=== PATIENT | female | born 1945 | race Caucasian/White ===

== ENCOUNTER 2019-10-01 06:00 | Outpatient (RCR) | payer MEDICARE, SELFPAY | END 2019-10-31 00:01 | LOC: SPT 06:00 | PROVIDERS: Family Provider Internal Medicine; Visit Provider Licensed Practical Nurse | DX: M51.17 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 disc disorders 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, lumbosacral region (principal) | CPT/HCPCS: 97110 ==

== ENCOUNTER 2019-11-23 01:33 | Emergency (ER) | payer MEDICARE, SELFPAY ==
[2019-11-23] VITALS (9 sets, daily range): BP systolic 120–190; BP diastolic 57–80; PULSE 65–80; RESP 17–22; O2SAT 95–99; BMI 29.9
--- NOTE | 2019-11-23 01:52 | XR_ITS ---
WS: [id number] PORTABLE CHEST HISTORY: chest pain COMPARISON: 01/08/2016 Lungs are clear and well expanded. No pleural effusion or pneumothorax. Cardiac size: Mildly enlarged cardiac silhouette. Mediastinum/Aorta: Mild atherosclerosis aorta. No osseous abnormality seen. XR/XR chest 1V portable [id number] IMPRESSION: Mild atherosclerosis aorta and cardiomegaly. No acute cardiopulmonary disease.
--- NOTE | 2019-11-23 01:53 | ECG_ITS ---
Measurements Intervals [place] Rate: 70 P: 40 MT: 202 QRS: -8 QRSD: 69 T: 12 QT: 349 QTc: 378 SINUS RHYTHM WITH FREQUENT VENTRICULAR PREMATURE COMPLEXES LOW QRS VOLTAGE IN PRECORDIAL LEADS [QRS DEFLECTION < 1.0 mV IN CHEST LEADS] MINIMAL VOLTAGE CRITERIA FOR LVH, CONSIDER NORMAL VARIANT [MEETS CRITERIA IN ONE OF: R(aVL), S(V1), R(V5), R(V5/V6)+S(V1)] SEPTAL MYOCARDIAL INFARCTION [40+ ms Q WAVE IN V1/V2], PROBABLY OLD Compared to ECG 02/07/2019 16:30:08 Myocardial infarct finding now present Electronically Signed On 11-23-2019 15:26:09 COMMUNICATION SKILLS INSTRUCTOR by Fly Reid M.D. [id number] elida
--- NOTE | 2019-11-23 01:54 | ED_ITS ---
Entered by Tamar Valenzuela, acting as scribe for Maribel Odom HPI - Chest Pain General: Chief Complaint: Chest Pain Stated Complaint: CP Time Seen by Provider: 11/23/19 01:52 Source: patient and family Mode of arrival: ambulatory History of Present Illness: HPI narrative: 73 y/o female presents to the ED with complaint of chest pain. Pt states she has had intermittent pain for several days. Pt states she tried antacids tonight, but had no relief. Her pain is sharp in nature and comes and goes ( lasting an hr or so). Pt states she has chronic bronchitis and a pinched nerve in her back that causes her regular pain. MD complaint: chest pain Onset (ago): day(s) Timing of current episode: episodic Prior episodes: Yes Onset: during rest Quality: sharp Associated symptoms: Deny abdominal pain, diaphoresis, fever(s), nausea or vomiting Review of Systems Const: Denies: fever, chills, body aches, fatigue, malaise or diaphoresis Eyes: Denies: change in vision or blurry vision ENMT: Denies: throat pain, painful swallowing, hoarseness, ear pain, ear discharge, Change in hearing or nasal discharge Card: Reports: other (see HPI) Resp: Reports: other (see HPI) GI: Denies: abdominal pain, nausea, vomiting, vomiting blood, coffee grounds in vomit, diarrhea, constipation, cramping, blood in stool or black tarry stool : Denies: flank pain, painful urination, urinary frequency, urinary urgency, decreased urine ouput, urinary incontinence or blood in urine Musc: Denies: neck pain, back pain, extremity pain, extremity swelling, joint pain, joint swelling, joint warmth or joint stiffness Skin/Breast: Denies: rash, skin tenderness or yellow skin Neuro: Denies: headache, numbness in extremities, weakness in extremities, changes in sensation, lack of coordination, difficulty walking, dizziness, vertigo or confusion Endo: Denies: excessive thirst, tired all the time, cold intolerance, excessive sweating, flushing or hot flashes Hector/Lymph: Denies: easy bruising, easy bleeding, petechiae or enlarged lymph nodes All/Imm: Denies: hives, throat swelling, tongue swelling, facial swelling or acute wheezing PFSH ED PFSH: Statuses (acute, chronic, etc) shown below reflect problem list status as previously entered and may not be historically accurate Medical History (Updated 11/23/19 @ 05:44 by Maribel Odom) Back pain (Acute) Chronic bronchitis (Acute) Physical Exam Const: COMMON NORMALS: no apparent distress, oriented x3, no limitations, healthy appearing and well nourished EXAM LIMITATIONS: no altered mental sta tus GENERAL APPEARANCE: cooperative, well kempt and well developed ORIENTATION/CONSCIOUSNESS: Yes awake HENMT: COMMON NORMALS: normocephalic, head/scalp atraumatic, hearing grossly normal bilaterally, external ears normal, EAC's normal, external nose normal and moist oral mucous membranes HEAD & SCALP: normal to inspection, normocephalic and atraumatic FACE & SINUS: normal facial exam and face symmetric NOSE: external nose normal and nares normal EXTERNAL EAR: Yes external ears normal EXTERNAL AUDITORY CANAL: EAC's normal MOUTH: oral and palatal mucosa normal and tongue normal Eye: COMMON NORMALS: PERRL, EOMs intact bilaterally, conjunctivae normal and no scleral icterus GENERAL EYE: normal appearance of both eyes and normal light reflex CONJUNCTIVA: Yes conjunctivae normal SCLERA: sclerae normal CORNEA: Yes corneas normal PUPIL: Yes PERRL DIRECT OPHTHALMOSCOPY: Yes normal light reflex Neck/C-Spine: COMMON NORMALS: full ROM, no lymphadenopathy, supple, no meningeal signs and no JVD GENERAL: Yes normal visual inspection and Yes trachea midline CERVICAL SPINE: Yes cervical ROM normal Cardio: COMMON NORMALS: no JVD, regular rate, regular rhythm, S1 normal heart sound, S2 normal heart sound, no gallops, no clicks, no murmurs and no rub JUGULAR VENOUS DISTENTION: no JVD RATE: regular rate RHYTHM: regular rhythm HEART SOUNDS: S1 normal and S2 normal GI: COMMON NORMALS: soft to palpation, non-tender, no hepatosplenomegaly and no masses INSPECTION: Yes normal to inspection PALPATION: Yes soft and Yes no hepatosplenomegaly : COMMON NORMALS: Yes no CVA tenderness BLADDER/KIDNEY EXAM: Yes no CVA tenderness Back/Pelvis: COMMON NORMALS: no CVA tenderness, thoracic and lumbar spine normal to inspection, no thoracic nor lumbar tenderness and thoraco-lumbar ROM normal Extremity: COMMON NORMALS: normal to inspection, full ROM, normal capillary refill, no joint enlargement, no clubbing, cyanosis or edema and no calf tenderness Neuro: COMMON NORMALS: oriented x3, CN's II-XII intact bilaterally, moves all extremities, no focal motor deficits and no sensory deficits noted MENINGEAL SIGNS: Yes no meningeal signs Psych: COMMON NORMALS: mental status grossly normal, thought process normal, cooperative, affect normal, speech normal and activity/motor behavior normal APPEARANCE: Yes well kempt SPEECH: Yes normal speech THOUGHT PROCESS: normal thought process Skin: COMMON NORMALS: no rashes or lesions noted, skin turgor normal, no jaundice, no petechiae and no mottling GENERAL SKIN EXAM: no rashes or lesions noted and turgor normal Course Vital Signs: Vital signs: Vital Signs Pulse Rate 76 11/23/19 05:37 Respiratory Rate 18 11/23/19 05:37 Blood Pressure 125/62 11/23/19 05:37 Pulse Oximetry 97 11/23/19 05:37 MDM - Chest Pain MDM Narrative: Medical decision making narrative: Patient comes in with sharp and burning pain in her chest that she has had before. She stated from the beginning she thought it was from her hiatal hernia. Her CT shows no dissection or PE. It does show severe thickening of the gastric body and antrum. She is only taking Tums at home for this. She refuses admission for further evaluation or care. Her EKGs are unremarkable, please see them as noted in the tech system. Patient agrees to return should her symptoms change or worsen but at this time she wants to be discharged. Lab Data: Attestation: I reviewed the patient's lab results. Labs: Lab Results 11/23/19 11/23/19 11/23/19 Range/Units 02:13 02:13 02:13 WBC 15.1 H (4.0-10.0) 10^3/ uL RBC 4.67 (4.1-5.3) 10^6/u L Hgb 13.5 (11.5-15.3) g/dL Hct 40.5 (37.0-47.0) % MCV 86.7 (81-99) fL MCH 28.9 (28.0-34.0) pg MCHC 33.3 (30.0-36.0) g/dL RDW 13.3 (12.1-15.1) % Plt Count 331 (130-400) 10^3/c mm MPV 10.2 (7.4-10.4) fL Neut % (Auto) 65.5 % Lymph % (Auto) 18.9 % [place] % (Auto) 11.2 % Eos % (Auto) 3.4 % Baso % (Auto) 0.7 % Neut # (Auto) 9.9 H (1.8-7.7) 10^3/u L Lymph # (Auto) 2.9 (0.8-4.8) 10^3/u L [place] # (Auto) 1.7 H (0.2-0.9) 10^3/u L Eos # (Auto) 0.5 (0.0-0.8) 10^3/u L Baso # (Auto) 0.1 (0.0-0.1) 10^3/u L Nucleated RBC % (a uto) 0 % Nucleated RBCs # 0.0 /100WBC PT 13.90 H (10.5-13.3) SECO NDS INR 1.03 (0.8-1.2) APTT 36.1 (23.9-36.7) SECO NDS D-Dimer 1.83 H (0-0.59) ug/mIFE U Sodium 134 L (136-145) mmol/L Potassium 4.3 (3.5-5.1) mmol/L Chloride 93 L (98-107) mmol/L Carbon Dioxide 27 (22-29) mmol/L Anion Gap 18.3 (5-19) BUN 21 (8-23) mg/dL Creatinine 0.8 (0.5-0.9) mg/dL Glucose 179 H (74-106) mg/dL Calcium 10.5 H (8.8-10.2) mg/Dl Total Bilirubin 0.2 (0.15-1.2) mg/dL AST 24 (0-32) U/L ALT 12 (0-33) U/L Alkaline Phosphata se 94 (35-105) IU/L Troponin T Baselin e (0-10) ng/mL Troponin T 120 Min [place] (0-10) ng/mL Delta Troponin T (0-10) ABS# Total Protein 7.4 (6.6-8.7) g/dL Albumin 4.2 (3.5-5.2) g/dL Globulin 3.2 (1.3-4.6) g/dL 11/23/19 11/23/19 Range/Units 02:13 03:45 WBC (4.0-10.0) 10^3/ uL RBC (4.1-5.3) 10^6/u L Hgb (11.5-15.3) g/dL Hct (37.0-47.0) % MCV (81-99) fL MCH (28.0-34.0) pg MCHC (30.0-36.0) g/dL RDW (12.1-15.1) % Plt Count (130-400) 10^3/c mm MPV (7.4-10.4) fL Neut % (Auto) % Lymph % (Auto) % [place] % (Auto) % Eos % (Auto) % Baso % (Auto) % Neut # (Auto) (1.8-7.7) 10^3/u L Lymph # (Auto) (0.8-4.8) 10^3/u L [place] # (Auto) (0.2-0.9) 10^3/u L Eos # (Auto) (0.0-0.8) 10^3/u L Baso # (Auto) (0.0-0.1) 10^3/u L Nucleated RBC % (a uto) % Nucleated RBCs # /100WBC PT (10.5-13.3) SECO NDS INR (0.8-1.2) APTT (23.9-36.7) SECO NDS D-Dimer (0-0.59) ug/mIFE U Sodium (136-145) mmol/L Potassium (3.5-5.1) mmol/L Chloride (98-107) mmol/L Carbon Dioxide (22-29) mmol/L Anion Gap (5-19) BUN (8-23) mg/dL Creatinine (0.5-0.9) mg/dL Glucose (74-106) mg/dL Calcium (8.8-10.2) mg/Dl Total Bilirubin (0.15-1.2) mg/dL AST (0-32) U/L ALT (0-33) U/L Alkaline Phosphata se (35-105) IU/L Troponin T Baselin e 11 H (0-10) ng/mL Troponin T 120 Min [place] 10.21 H (0-10) ng/mL Delta Troponin T -0.79 L (0-10) ABS# Total Protein (6.6-8.7) g/dL Albumin (3.5-5.2) g/dL Globulin (1.3-4.6) g/dL Imaging Data^: CTA Chest: Radiologist's impression: [place] [id number] CT Scan Report Signed Patient: Jenna Nye #: [id number] : 3Acct#:[id number] Age/Sex: 74 / FADM Date: 11/23/19 Loc: ERRoom/Bed: Attending Dr: Ordering Provider/Ordering MD: Maribel Odom DO Date of Service: 11/23/19 Procedure(s): CT angio chest w abd pel w con Accession Number(s): [id number] Report Number: [id number] PROCEDURE INFORMATION: Exam: CT Angiography Chest With Contrast Exam date and time: 11/23/2019 3:08 AM Age: 74 years old Clinical indication: Abdominal pain; Acute; Chest pain; Prior surgery; Surgery date: 6+ months; Surgery type: Lt breast lumpectomy, gb, hysterectomy; Additional info: Chest pain, d-dimer positive TECHNIQUE: Imaging protocol: Computed tomographic angiography of the chest with intravenous contrast. 3D rendering: MIP and/or 3D reconstructed images were created by the technologist. Total DLP: 1868.77 mGy-cm Radiation optimization: All CT scans at this facility use at least one of these dose optimization techniques: automated exposure control; mA and/or kV adjustment per patient size (includes targeted exams where dose is matched to clinical indication); or iterative reconstruction. Contrast material: OMNI 350; Contrast volume: 95 ml; Contrast route: 20G; COMPARISON: CR XR chest 1V portable [id number] 11/23/2019 2:32 AM FINDINGS: Pulmonary arteries: No dissection. No visualized embolism as characterized to the proximal segmental level. Aorta: Calcification of the aorta. Lungs: Lungs are well aerated without a focal area of consolidation. Mild dependent atelectasis is present. Pleural space: Unremarkable. No pneumothorax. No pleural effusion. Heart: No pericardial effusion Mediastinum: Soft tissues of the mediastinum appear unremarkable. Lymph nodes: Unremarkable. No enlarged lymph nodes. Bones/joints: Unremarkable. No acute fracture. Soft tissues: Unremarkable. Other findings: thoracic inlet is unremarkable. IMPRESSION: 1. No dissection. No visualized embolism as characterized to the proximal segmental level. 2. Lungs are well aerated without a focal area of consolidation. PROCEDURE INFORMATION: Exam: CT Abdomen And Pelvis With Contrast Exam date and time: 11/23/2019 3:08 AM Age: 74 years old Clinical indication: Abdominal pain; Acute; Chest pain; Prior surgery; Surgery date: 6+ months; Surgery type: Lt breast lumpectomy, gb, hysterectomy; Additional info: Chest pain, d-dimer positive TECHNIQUE: Imaging protocol: Computed tomography of the abdomen and pelvis with intravenous contrast. Total DLP: 1868.77 mGy-cm Radiation optimization: All CT scans at this facility use at least one of these dose optimization techniques: automated exposure control; mA and/or kV adjustment per patient size (includes targeted exams where dose is matched to clinical indication); or iterative reconstruction. Contrast material: OMNI 350; Contrast volume: 95 ml; Contrast route: 20G; COMPARISON: CR XR chest 1V portable [id number] 11/23/2019 2:32 AM FINDINGS: Liver: fatty infiltration of the liver. Gallbladder and bile ducts: Normal. No calcified stones. No ductal dilation. Pancreas: Normal. No ductal dilation. Spleen: Normal. No splenomegaly. Adrenals: Normal. No mass. Kidneys and ureters: Normal. No hydronephrosis. Stomach and bowel: Rather severe thickening of the gastric body and gastric antrum. Correlate. Followup. Appendix: The appendix is not visualized. Intraperitoneal space: No free fluid within the pelvis or within the dependent portions of the peritoneum. Vasculature: Calcification of the aorta. Incidental finding is a retroaortic left renal vein. Lymph nodes: Numerous small subcentimeter lymph nodes in the aorta caval region. Bladder: Unremarkable as visualized. Reproductive: Prior hysterectomy. Bones/joints: Prior hip arthroplasty on the right Soft tissues: Unremarkable. Other findings: No acute intra-abdominal process. No inflammatory process. No obstruction. CT/CT angio chest w abd pel w con IMPRESSION: 1. Rather severe thickening of the gastric body and gastric antrum. Correlate. Followup. 2. No acute intra-abdominal process. No inflammatory process. No obstruction. 3. No free fluid within the pelvis or within the dependent portions of the peritoneum. 4. Fatty infiltration of the liver. Radiation Dose CTDIVOL = (mGy): DLP = 1868.77~1868.77 (mGy-cm) Discharge Plan Discharge Patient Disposition: Home, Self-Care Clinical Impression: Chest pain Qualifiers: Chest pain type: unspecified Qualified Code(s): R07.9 - Chest pain, unspecified Gastritis Qualifiers: Gastritis type: unspecified gastritis Chronicity: acute Gastritis bleeding: without bleeding Qualified Code(s): K29.00 - Acute gastritis without bleeding Condition: Stable Prescriptions: New Protonix 40 mg tablet,delayed release (DR/EC) 40 mg PO DAILY Qty: 30 RF: 0 Discharge Orders: Discharge Order (Routine); Ordered 11/23/19 Ordered By: Maribel Odom Referrals: Mahamed Cuba MD [Primary Care Provider] - Discharge Diet: Advance as tolerated Discharge Activity: Increase activity as tolerated Patient Instructions: Gastritis (ED) Activity Restrictions/Additional Instructions: Please return to the ER immediately for any of the signs or symptoms listed on your discharge instruction sheets, worsening/changing of your symptoms, you are not getting better as quickly as expected, or for ANY other cause or concerns. You have declined any further evaluation and care here for your heart but you are welcome to return to the ER if you change your mind. Be certain to follow- up with your doctor for further evaluation and care. Coding Level of Care Code ED Management Coordinator for Chg Fwd Exam Problem Focused The documentation recorded by the Nicolas cruz Ashley, accurately reflects the service I personally performed and the decisions made by Ilene lane Eli N Nov 23, 2019 01:33
[2019-11-23] MEDS: sodium chloride 0.9% 500 ML 999 ML IV (02:07)
[2019-11-23] MEDS: nitroglycerin 0.4 mg sublingual Tablet SUBLINGUAL ×3 (02:16→03:01)
[2019-11-23] MEDS: aspirin 325 mg Tablet PO (02:16)
[2019-11-23 02:20] LABS: Basophils # 0.1 10^3/uL (0.0-0.1); Basophils % 0.7 %; Eosinophils # 0.5 10^3/uL (0.0-0.8); Eosinophils % 3.4 %; Hematocrit 40.5 % (37.0-47.0); Hemoglobin 13.5 g/dL (11.5-15.3); Lymphocytes # 2.9 10^3/uL (0.8-4.8); Lymphocytes % 18.9 %; Mean Corpuscular HGB Conc 33.3 g/dL (30.0-36.0); Mean Corpuscular Hemoglobin 28.9 pg (28.0-34.0); Mean Corpuscular Volume 86.7 fL (81-99); Mean Platelet Volume 10.2 fL (7.4-10.4); Monocytes # 1.7 10^3/uL (0.2-0.9); Monocytes % 11.2 %; Neutrophils # 9.9 10^3/uL (1.8-7.7); Neutrophils % 65.5 %; Nucleated Red Blood Cells % 0 %; Platelet Count 331 10^3/cmm (130-400); Red Blood Count 4.67 10^6/uL (4.1-5.3); Red Cell Distribution Width 13.3 % (12.1-15.1); White Blood Count 15.1 10^3/uL (4.0-10.0)
[2019-11-23 02:29] LABS: INR 1.03 (0.8-1.2)
[2019-11-23 02:30] LABS: Partial Thromboplastin Time 36.1 SECONDS (23.9-36.7)
[2019-11-23 02:32] LABS: D Dimer 1.83 ug/mIFEU (0-0.59)
[2019-11-23 02:38] LABS: Troponin(5th) Baseline 11 ng/mL (0-10)
--- NOTE | 2019-11-23 02:40 | CTR_ITS ---
PROCEDURE INFORMATION: Exam: CT Angiography Chest With Contrast Exam date and time: 11/23/2019 3:08 AM Age: 74 years old Clinical indication: Abdominal pain; Acute; Chest pain; Prior surgery; Surgery date: 6+ months; Surgery type: Lt breast lumpectomy, gb, hysterectomy; Additional info: Chest pain, d-dimer positive TECHNIQUE: Imaging protocol: Computed tomographic angiography of the chest with intravenous contrast. 3D rendering: MIP and/or 3D reconstructed images were created by the technologist. Total DLP: 1868.77 mGy-cm Radiation optimization: All CT scans at this facility use at least one of these dose optimization techniques: automated exposure control; mA and/or kV adjustment per patient size (includes targeted exams where dose is matched to clinical indication); or iterative reconstruction. Contrast material: OMNI 350; Contrast volume: 95 ml; Contrast route: 20G; COMPARISON: CR XR chest 1V portable [id number] 11/23/2019 2:32 AM FINDINGS: Pulmonary arteries: No dissection. No visualized embolism as characterized to the proximal segmental level. Aorta: Calcification of the aorta. Lungs: Lungs are well aerated without a focal area of consolidation. Mild dependent atelectasis is present. Pleural space: Unremarkable. No pneumothorax. No pleural effusion. Heart: No pericardial effusion Mediastinum: Soft tissues of the mediastinum appear unremarkable. Lymph nodes: Unremarkable. No enlarged lymph nodes. Bones/joints: Unremarkable. No acute fracture. Soft tissues: Unremarkable. Other findings: thoracic inlet is unremarkable. IMPRESSION: 1. No dissection. No visualized embolism as characterized to the proximal segmental level. 2. Lungs are well aerated without a focal area of consolidation. PROCEDURE INFORMATION: Exam: CT Abdomen And Pelvis With Contrast Exam date and time: 11/23/2019 3:08 AM Age: 74 years old Clinical indication: Abdominal pain; Acute; Chest pain; Prior surgery; Surgery date: 6+ months; Surgery type: Lt breast lumpectomy, gb, hysterectomy; Additional info: Chest pain, d-dimer positive TECHNIQUE: Imaging protocol: Computed tomography of the abdomen and pelvis with intravenous contrast. Total DLP: 1868.77 mGy-cm Radiation optimization: All CT scans at this facility use at least one of these dose optimization techniques: automated exposure control; mA and/or kV adjustment per patient size (includes targeted exams where dose is matched to clinical indication); or iterative reconstruction. Contrast material: OMNI 350; Contrast volume: 95 ml; Contrast route: 20G; COMPARISON: CR XR chest 1V portable [id number] 11/23/2019 2:32 AM FINDINGS: Liver: fatty infiltration of the liver. Gallbladder and bile ducts: Normal. No calcified stones. No ductal dilation. Pancreas: Normal. No ductal dilation. Spleen: Normal. No splenomegaly. Adrenals: Normal. No mass. Kidneys and ureters: Normal. No hydronephrosis. Stomach and bowel: Rather severe thickening of the gastric body and gastric antrum. Correlate. Followup. Appendix: The appendix is not visualized. Intraperitoneal space: No free fluid within the pelvis or within the dependent portions of the peritoneum. Vasculature: Calcification of the aorta. Incidental finding is a retroaortic left renal vein. Lymph nodes: Numerous small subcentimeter lymph nodes in the aorta caval region. Bladder: Unremarkable as visualized. Reproductive: Prior hysterectomy. Bones/joints: Prior hip arthroplasty on the right Soft tissues: Unremarkable. Other findings: No acute intra-abdominal process. No inflammatory process. No obstruction. CT/CT angio chest w abd pel w con IMPRESSION: 1. Rather severe thickening of the gastric body and gastric antrum. Correlate. Followup. 2. No acute intra-abdominal process. No inflammatory process. No obstruction. 3. No free fluid within the pelvis or within the dependent portions of the peritoneum. 4. Fatty infiltration of the liver. Radiation Dose CTDIVOL = (mGy): DLP = 1868.77~1868.77 (mGy-cm)
[2019-11-23 02:42] LABS: Alanine Aminotransferase 12 U/L (0-33); Albumin Level 4.2 g/dL (3.5-5.2); Alkaline Phosphatase 94 IU/L (35-105); Anion Gap 18.3 (5-19); Aspartate Amino Transferase 24 U/L (0-32); Blood Urea Nitrogen 21 mg/dL (8-23); Calcium 10.5 mg/Dl (8.8-10.2); Carbon Dioxide 27 mmol/L (22-29); Chloride 93 mmol/L (98-107); Globulin 3.2 g/dL (1.3-4.6); Glucose 179 mg/dL (74-106); Potassium 4.3 mmol/L (3.5-5.1); Sodium 134 mmol/L (136-145); Total Bilirubin 0.2 mg/dL (0.15-1.2); Total Protein 7.4 g/dL (6.6-8.7)
[2019-11-23] MEDS: sodium chloride 0.9% 1,000 ML 100 ML IV (03:00)
--- NOTE | 2019-11-23 03:42 | PC.NURSE ---
patient spare person light stating that she is feeling light headed and that she is going to pass out. pt states that this is different from feeling light headed at home. pt states that her pain is a 2/10 at this time. ed physician notified. order for medication given. nurse re-entered room and patient presented with a heart rate in the low 60s slightly diaphoretic and stating she was feeling worse. This nurse got a second nurse to look at patient (EDINSON Howard) did a repeat EKG and showed to ed physician. verbal order to hold on medication just prescribed for patient.
--- NOTE | 2019-11-23 03:53 | ECG_ITS ---
Measurements Intervals [place] Rate: 63 P: 43 UT: 208 QRS: 3 QRSD: 67 T: 31 QT: 397 QTc: 408 SINUS RHYTHM WITH OCCASIONAL VENTRICULAR PREMATURE COMPLEXES LOW QRS VOLTAGE IN PRECORDIAL LEADS [QRS DEFLECTION < 1.0 mV IN CHEST LEADS] NONSPECIFIC T-WAVE ABNORMALITY Compared to ECG 02/07/2019 16:30:08 T-wave abnormality now present Electronically Signed On 11-23-2019 15:28:38 FAMILY COUNSELOR by Fly Reid M.D. [id number] f
[2019-11-23] MEDS: ipratropium-albuterol 3 mL Neb INHALATION (03:54)
[2019-11-23 04:18] LABS: Troponin 5 2HR 10.21 ng/mL (0-10)
[2019-11-23 04:28] LABS: Troponin 5 2HR Delta -0.79 ABS# (0-10)
[2019-11-23] MEDS: iohexol 350 mg/mL 100 mL Btl IV (04:37)
[2019-11-23] MEDS: pantoprazole 40 mg SDV 80 MG IVP (06:07)
== END 2019-11-23 06:24 | disposition home or self-care (01) ==
PROVIDERS: Emergency Provider Emergency Medicine; Family Provider Internal Medicine; PCP Internal Medicine
DX: R07.9 Chest pain, unspecified (principal); K29.00 Acute gastritis without bleeding
CPT/HCPCS: 36415; 71045; 71275; 74177; 80053; 84484; 85025; 85378; 85610; 85730; 93005; 94640; 96360; 96361; 96374; 99283; C9113; J7030; J7040; Q9967

== ENCOUNTER → 2019-12-28 07:59 | Outpatient (BNVA) | payer MEDICARE, SELFPAY | PROVIDERS: Family Provider Internal Medicine; PCP Internal Medicine; Referring Provider Specialist; Visit Provider Anesthesiology Pain Medicine | DX: M50.020 Cervical disc disorder with myelopathy, mid-cervical region, unspecified level (principal); M43.12 Spondylolisthesis, cervical region; G56.03 Carpal tunnel syndrome, bilateral upper limbs; M48.061 Spinal stenosis, lumbar region without neurogenic claudication; M51.36 Other intervertebral disc degeneration, lumbar region; Z79.891 Long term (current) use of opiate analgesic | CPT/HCPCS: 99203; 99999 ==

== ENCOUNTER → 2020-01-23 12:24 | Outpatient (BNVA) | payer MEDICARE, OTHER, SELFPAY | PROVIDERS: Family Provider Internal Medicine; PCP Internal Medicine; Visit Provider Anesthesiology Pain Medicine | DX: M50.020 Cervical disc disorder with myelopathy, mid-cervical region, unspecified level (principal) | CPT/HCPCS: 62321; J1100; J2001 ==

== ENCOUNTER 2020-02-14 07:11 | Day surgery (SDC) | payer MEDICARE, SELFPAY ==
[2020-02-14 07:53] VITALS: BP 173/76; PULSE 71; RESP 18; TEMP 36.3; O2SAT 98
--- NOTE | 2020-02-14 07:56 | ANES.PREANE2 ---
Pre-Anesthetic Assessment Pre-Anesthetic Assessment: Height/Weight: Height 1.57 m Temp Pulse Resp BP Pulse Ox 97.3 F L 71 18 173/76 98 02/14/20 07:53 02/14/20 07:53 02/14/20 07:53 02/14/20 07:53 02/14/20 07:53 Preop Diagnosis: dysphagia Proposed Procedure: Operation Date: 02/14/20 09:05 Proposed Procedures p EGD 84576 R13.10 R93.3(Not Applicable) - Mahamed Cuba MD Familial anesthetic complications: None Was Beta Wyatt taken within 24 hours: N/A Last intake: NPO > 8 hrs Social: Social History: No alcohol and No tobacco Exam: Pre-Anes Outpt Exam: alert, oriented x 3, clear to auscultation bilaterally and regular rate & rhythm Airway: Cervical ROM: WNL MP: 3 Additional comments: receding jaw missing tooth Pulmonary: Comments: Chronic bronchitis URI 01/08 CV/HEM: CV/HEM: Arrythmia ( My heart misses a beat, but Dr. Cuba says its nothing to worry about ) and HTN : : None reported Hepatic: Hepatic: None reported GI: GI: GERD and Hi[place] hernia (has to sleep sitting up) Comments: dysphagia Metabolic: Metabolic: Hyperlipidemia and Morbid obesity Musc/skel: Musc/skel: OA/DJD Comments: cervical neck pain 2005 Neuropsych: Neuropsych: TIA (February 07 2019) Anesthetic Plan: ASA status: 3 Anesthesia: General Risk of > 500 ml blood loss (7ml/kg in children): No PFSH Anesthesia PFSH: Social History Smoking and tobacco status: never smoked Alcohol intake: never Lives independently: Yes Household members: spouse Marital status: Current occupational status: retired History of recent travel: No Data Anesthesia Cardiac Studies: No Data to Display
[2020-02-14] MEDS: sodium chloride 0.9% 1,000 ML 30 ML IV (08:28)
[2020-02-14 08:30] VITALS: BMI 29.0
--- NOTE | 2020-02-14 09:05 | W.PM.OPSUD ---
Surgery/Procedure H&P Update DATE OF PROCEDURE: February 14, 2020 DATE H&P PERFORMED: 01/23/20 PREOP DIAGNOSIS: Dysphagia, WL, Abnormal CT stomach. PLANNED PROCEDURE: Operation Date: 02/14/20 09:05 Proposed Procedures p EGD 86671 R13.10 R93.3(Not Applicable) - Mahamed Cuba MD
[2020-02-14 09:52] VITALS: BP 118/69; PULSE 62; RESP 20; TEMP 36.6; O2SAT 96
[2020-02-14] MEDS: EPINEPHrine 1 mg/mL INJ XX (09:53)
[2020-02-14 10:15] VITALS: BP 169/77; PULSE 58; RESP 18; TEMP 36.4; O2SAT 97
== END 2020-02-14 10:45 | disposition home or self-care (01) ==
PROVIDERS: Family Provider Internal Medicine; PCP Internal Medicine; Visit Provider Internal Medicine
PROC: 0DJ08ZZ Inspection of Upper Intestinal Tract, Via Natural or Artificial Opening Endoscopic (ICD-10-PCS; CPT 43235; principal; 2020-02-14 09:00)
DX: R93.5 Abnormal findings on diagnostic imaging of other abdominal regions, including retroperitoneum (principal); R13.10 Dysphagia, unspecified; Z79.82 Long term (current) use of aspirin; R19.00 Intra-abdominal and pelvic swelling, mass and lump, unspecified site; I10 Essential (primary) hypertension; K21.9 Gastro-esophageal reflux disease without esophagitis; E78.5 Hyperlipidemia, unspecified; E66.01 Morbid (severe) obesity due to excess calories; Z68.29 Body mass index [BMI] 29.0-29.9, adult; M19.90 Unspecified osteoarthritis, unspecified site; Z86.73 Personal history of transient ischemic attack (TIA), and cerebral infarction without residual deficits
CPT/HCPCS: 43239; 12345; 88305; J0171; J7030

== ENCOUNTER 2020-02-26 06:59 | Day surgery (SDC) | payer MEDICARE, SELFPAY ==
[2020-02-23 10:44] VITALS: BMI 28.0
[2020-02-26 07:18] VITALS: BP 158/64; PULSE 58; RESP 20; TEMP 36.2; O2SAT 96
[2020-02-26] MEDS: sodium chloride 0.9% 1,000 ML 30 ML IV (07:30)
--- NOTE | 2020-02-26 07:33 | ANES.PREANE2 ---
Pre-Anesthetic Assessment Pre-Anesthetic Assessment: Height/Weight: Height 1.57 m Weight 69.4 kg Temp Pulse Resp BP Pulse Ox 97.2 F L 58 L 20 H 158/64 96 02/26/20 07:18 02/26/20 07:18 02/26/20 07:18 02/26/20 07:18 02/26/20 07:18 Preop Diagnosis: epigastric pain Proposed Procedure: Operation Date: 02/26/20 09:05 Proposed Procedures p EGD 00271 C85.99(Not Applicable) - Mahamed Cuba MD Familial anesthetic complications: None Was Beta Wyatt taken within 24 hours: N/A Last intake: Intake Last Liquid Date 02/26/20 Last Liquid Time 06:00 Last Solid Date 02/25/20 Last Solid Time 19:30 Social: Social History: No alcohol and No tobacco Exam: Pre-Anes Outpt Exam: alert, oriented x 3, clear to auscultation bilaterally and regular rate & rhythm Airway: Cervical ROM: WNL MP: 3 Dentition: False Pulmonary: Comments: Chronic bronchitis CV/HEM: CV/HEM: HTN : : None reported Hepatic: Hepatic: None reported GI: GI: None reported Metabolic: Metabolic: DM and Hyperlipidemia Musc/skel: Musc/skel: Lower Back Pain Neuropsych: Neuropsych: CVA (R arm weaknesss) and TIA Anesthetic Plan: ASA status: 2 Anesthesia: MAC Risk of > 500 ml blood loss (7ml/kg in children): No Meds/Allergies Current Medications: Current Medications Generic Name Dose Route Start Last Admin Trade Name Freq PRN Reason Stop Dose Admin Sodium Chloride 1,000 mls @ 30 ml s/hr 02/26/20 07:30 02/26/20 07:30 Sodium Chloride 0.9% IV 30 mls/hr .Q24H DEIDRE Administration PFSH Anesthesia PFSH: Social History Smoking and tobacco status: never smoked Alcohol intake: never Lives independently: Yes Household members: spouse Marital status: Current occupational status: retired History of recent travel: No Data Anesthesia Cardiac Studies: No Data to Display
--- NOTE | 2020-02-26 09:08 | W.PM.OPSUD ---
Surgery/Procedure H&P Update DATE OF PROCEDURE: February 26, 2020 DATE H&P PERFORMED: 02/21/20 PREOP DIAGNOSIS: epigastric pain PLANNED PROCEDURE: Operation Date: 02/26/20 09:05 Proposed Procedures p EGD 79040 C85.99(Not Applicable) - Mahamed Cuba MD
[2020-02-26 09:39] VITALS: BP 136/74; PULSE 54; RESP 16; TEMP 36.2; O2SAT 96
--- NOTE | 2020-02-26 09:41 | ANE.PACU2 ---
 Inpatient post-anesthesia follow up: Airway intact: Yes Vital signs: Temperature 97.2 F Pulse Rate 58 Respiratory Rate 20 Blood Pressure 158/64 Pulse Oximetry 96 Oxygen Delivery Me thod Room Air Oxygen Flow Rate Fraction of Inspir ed Oxygen Hydration adequate: Yes Nausea and vomiting: No Pain level: 1 Mental status: Baseline
[2020-02-26 09:51] VITALS: BP 156/82; PULSE 58; RESP 18; TEMP 36.3; O2SAT 95
[2020-03-07 10:42] LABS: Miscellaneous Test See Scanned Lab Rpt
== END 2020-02-26 10:15 | disposition home or self-care (01) ==
PROVIDERS: Family Provider Internal Medicine; PCP Internal Medicine; Visit Provider Internal Medicine
PROC: 0DJ08ZZ Inspection of Upper Intestinal Tract, Via Natural or Artificial Opening Endoscopic (ICD-10-PCS; CPT 43235; principal; 2020-02-26 09:00)
DX: R10.13 Epigastric pain (principal); R19.00 Intra-abdominal and pelvic swelling, mass and lump, unspecified site; I10 Essential (primary) hypertension; E11.9 Type 2 diabetes mellitus without complications; E78.5 Hyperlipidemia, unspecified; Z86.73 Personal history of transient ischemic attack (TIA), and cerebral infarction without residual deficits
CPT/HCPCS: 12345; 43239; 88184; 88185; 88188; 88271; 88275; 88305; J2704; J7030

== ENCOUNTER 2020-04-01 07:49 | Outpatient (CLI) | payer MEDICARE, SELFPAY ==
--- NOTE | 2020-04-01 18:44 | ONC FU_ITS ---
Dr. Thompson follow up note Patient: Jenna Nye V Unit #: [id number]: 1945 Dicatated By: Carl Thompson M.D.Date of Visit:Apr 01, 2020 Onc Med Follow-up/Prog Note History of Present Illness: This is a 74 year old postmenopausal woman, who routine laboratory mammogram screening mammogram from 01/12/2014 was found to have a suspicious 9.6 mm nodule at 3:00 position. Additional views and ultrasound was performed on 02/03/2014. It showed 2 small suspicious lesions at 3:00 -5 cm from the nipple and at 3:00 -3 cm from the nipple. The ultrasound-guided biopsy on 02/22/2014 showed mixed ductal and lobular infiltrating carcinoma, grade 2/3, involving both locations. Prognostic markers revealed ER 99%, HI 97%, HER-2 2+ by IHC, FISH ratio 1.08. On 03/08/2014 she underwent left axilla sentinel lymph node biopsy and left breast lumpectomy twice. Her pathology showed a residual invasive carcinoma with extensive component of DCIS. The largest invasive component measured 1.4 cm. Thus, stage IA, T1c, N0, M0. She required 2 additional surgeries on 03/22/2014 and on 04/05/2014 for positive margins. The Oncotype DX score is 16, low risk, no adjuvant chemotherapy was delivered. She completed 5040 cGy of radiation to the breast followed by boost on 08/02/14. She began on adjuvant Arimidex therapy in August of 2014. The treatment was complicated with persistent headaches and hot flashes. Her therapy was changed to Femara in September of 2014. MRI of the brain was negative for metastatic disease on 12/2/14. Baseline DEXA scan on 08/15/2014 was normal. She had taken Femara until 11-30-16 at which time it was placed on hold as well as the Effexor due to problems with night cao and worsening hot flashes as well as some joint pain. She was off the Femara and Effexor for a little over 4 weeks before she attempted to resume it. She has resumed it along with the Effexor and has tolerated it well. and completed her adjuvant hormonal therapy on 04/01/2020 As per patient in September 2019, she had 'bad' cough and mid chest pain, Went to [facility] at that time he was taught it could be due to esophageal infection, she was treated with antibiotics but her pain continued to progress especially after eating eventually, on 02/14/2020 she underwent EGD evaluation which showed gastric mass, biopsy was obtained which confirmed high-grade B-cell lymphoma, FISH to rule out Burkitt's was negative for IGH-MYC fusion ,t(8;14). Patient underwent CT PET scan on 02/24/2020 which showed hypermetabolic gastric wall thickening with questionable invasion into adjacent liver. No evidence of lavelle or additional extranodal disease. Came for follow-up, complaining of epigastric discomfort or fullness and early fullness, but no hemoptysis or hematemesis, no jaundice, no night sweats, no recurrent fever, but weight loss from 167 pounds down to 150 2. Medications: Acetaminophen 2 Capsule (of 500 mg) Oral PRN, Calcium 600/Vitamin D 1 (600-400 mg - Units) Tablet Oral b.i.d., Eye Drops 2 Drop(s) Solution Ophthalmic daily PRN, Femara 1 (2.5 mg) Tablet Oral daily, Lisinopril 1 (30 mg) Tablet Oral b.i.d., Simvastatin 1 (20 mg) Tablet Oral daily, Venlafaxine HCl 1 (75 mg) Tablet Oral daily Allergies: Eggs Review of Systems: Constitutional - Her energy level is good. Appetite is good and weight is stable. No fever, chills, hot flashes, or night sweats, ENMT - She has sinus congestion/drainage. No mouth sores. No sore throat or difficulty swallowing, Hematologic/Lymphatic - No abnormal bruising or bleeding, Respiratory - No shortness of breath. She has a productive cough which produces white phlegm. No pleuritic pain or hemoptysis, Cardiovascular - No angina pain. No palpitations, Gastrointestinal - No nausea or vomiting. Occasional heartburn. No diarrhea or constipation. No blood in the stool or black stools, Genitourinary (F) - No dysuria and hematuria. No urinary frequency. No urgency or incontinence, Musculoskeletal - She has pain in her knees and hips, Integumentary - No chronic rashes, ulcerations or skin changes, Neurologic - No headache or dizziness. She has swelling and numbness in her hands during the night, Psychiatric - No anxiety. She has some depression. No insomnia. Vital Signs: Performed on Apr 01, 2020 08:24 Height - 62.00 in Weight - 153.4 lbs (LOW) BSA - 1.71 sq.m BMI - 28.06 Temperature - 98.0 F (LOW) Pulse - 47 /min (LOW) Respiration - 20 /min BP - 168/78 mm(hg) (HIGH) O2 Sat - 100 % Pain - 0 Performance Status: 0 - Fully active, able to carry on all predisease activities without restrictions. (ECOG) Physical Examination: Hematologic/Lymphatic - no peripheral lymphadenopathy, Respiratory - Lungs are clear, Cardiovascular - Regular rate and rhythm of heart, Extremities - no visible edema, or rash. Lab/Imaging: Most recent lab results are not available for this patient. 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 There is loss of fat plane between posterior left hepatic lobe and invasion cannot be excluded. No evidence of lavelle or additional extranodal disease. 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 The Oncotype DX score is 16, corresponding to about 10% risk of 10 year recurrence after completion of hormonal therapy. She completed adjuvant radiation on 08/02/14. She is a candidate hormonal therapy with aromatase inhibitors for 5 years, Arimidex at 1 mg daily was recommended. The side effects of the treatment include worsening arthralgias and accelerated bone density loss amongst others. Arimidex therapy began in August of 2014, thus far complicated with significant debilitating headaches and hot flashes. Treatment was changed to Femara, headaches resolved. Hot flashes resolved with Effexor. She is doing well. She had a hip replacement in 2017. She remains on Femara and Effexor. Mrs Nye presents today with concerns of persistent left breast pain for at least 2 weeks. Her CA 27-29 was mildly elevated at her December 2017 visit .Bilateral mammogram done on 04/21/2018 showed BI-RADS 2 benign Plan: Discussed with patient regarding her newly diagnosed high-grade gastric lymphoma, treatment options including systemic with R- CHOP ???[address] scan if complete remission followed by involved field radiation therapy or systemic therapy alone or radiation alone All the side effect possible benefits associated with chemotherapy R CHOP including but not limited to nausea vomiting, hair loss, bone marrow suppression, cardiac toxicity especially with Adriamycin, bladder toxicity, hyperglycemia especially with steroids and peripheral neuropathy, patient has bilateral carpal tunnel more on the right side and also history of cervical radiculopathy, causing off and on right arm numbness, in the past she was given steroid injection to C-spine by her PMD with some success.. In the meantime we will check her EBV status, H. pylori status and hepatitis profile. We will also consider echocardiogram to assess cardiac status and if within normal range then will consider starting her on Rchop ???3 , followed by CT PET scan to assess disease response Also consider sliding scale teaching patient has borderline diabetes. Return to clinic after echocardiogram if abnormal otherwise 1 week after chemotherapy with CBC CMP next As far as breast cancer is concern, patient has completed 5 years of hormonal therapy with Femara, will discontinue that today. Signed By: Carl Thompson M.D. <<Signature on File>>
== END 2020-04-01 07:50 | disposition home or self-care (01) ==
LOC: ONCMED 07:52
PROVIDERS: Family Provider Internal Medicine; PCP Internal Medicine; Visit Provider Internal Medicine Hematology & Oncology
DX: C85.99 Non-Hodgkin lymphoma, unspecified, extranodal and solid organ sites (principal); C50.412 Malignant neoplasm of upper-outer quadrant of left female breast; Z17.0 Estrogen receptor positive status [ER+]; E11.9 Type 2 diabetes mellitus without complications; K57.90 Diverticulosis of intestine, part unspecified, without perforation or abscess without bleeding; I10 Essential (primary) hypertension; M19.90 Unspecified osteoarthritis, unspecified site; Z79.811 Long term (current) use of aromatase inhibitors; Z79.818 Long term (current) use of other agents affecting estrogen receptors and estrogen levels; Z92.21 Personal history of antineoplastic chemotherapy
CPT/HCPCS: 99214

== ENCOUNTER 2020-04-16 06:59 | Day surgery (SDC) | payer MEDICARE, SELFPAY ==
[2020-04-15 10:42] VITALS: BMI 29.6
--- NOTE | 2020-04-16 | SCC_ITS ---
Right subclavian vein PowerPort Port-A-Cath placement 39.2 seconds of fluoroscopic guidance, for a cumulative dose of 6.07 mGy, was provided to Dr. Urrutia by the radiology department. C-arm images of the chest were saved for the patient's permanent record. [facility]
[2020-04-16 07:27] VITALS: BP 175/105; PULSE 60; RESP 18; TEMP 36.4; O2SAT 97
--- NOTE | 2020-04-16 07:47 | P.ANESASSM_ITS ---
Pre-Anesthetic Assessment Pre-Anesthetic Assessment: Height/Weight: Height 1.57 m Weight 73.482 kg Preop Diagnosis: GASTRIC LYMPHOMA Proposed Procedure: Operation Date: 04/16/20 08:50 Proposed Procedures p Portacath Placement 36276 C85.699(Not Applicable) - Neftaly Urrutia MD Familial anesthetic complications: none Was Beta Wyatt taken within 24 hours: N/A Last intake: NPO > 8 hrs Social: Social History: No alcohol and No tobacco Exam: Pre-Anes Outpt Exam: alert, oriented x 3, clear to auscultation bilaterally and regular rate & rhythm Airway: Cervical ROM: WNL MP: 3 Dentition: False Pulmonary: Comments: chronic bronchitis CV/HEM: CV/HEM: HTN Comments: EKG Nov 2019 SINUS RHYTHM WITH OCCASIONAL VENTRICULAR PREMATURE COMPLEXES LOW QRS VOLTAGE IN PRECORDIAL LEADS [QRS DEFLECTION < 1.0 mV IN CHEST LEADS] NONSPECIFIC T-WAVE ABNORMALITY GI: GI: GERD Comments: gastric lymphoma Metabolic: Metabolic: Hyperlipidemia Neuropsych: Neuropsych: CVA (2018 (janelle clifton)) and TIA Anesthetic Plan: ASA status: 3 Anesthesia: MAC Risk of > 500 ml blood loss (7ml/kg in children): No PFSH Anesthesia PFSH: Medical History Abnormal CT scan, stomach Back pain Cervical disc disorder with myelopathy of mid-cervical region Chronic bronchitis HX: breast cancer 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 disc disorder 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 region group home (current) use of opiate analgesic Lumbar stenosis without neurogenic claudication Pain management contract signed Spondylolisthesis of cervical region 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 (cerebrum) Hx of stroke in February 07, 2019 Surgical History H/O total hip arthroplasty History of cholecystectomy History of hysterectomy Social History Smoking and tobacco status: never smoked Alcohol intake: never Lives independently: Yes Household members: spouse Marital status: Current occupational status: retired History of recent travel: No Data Anesthesia Cardiac Studies: No Data to Display
[2020-04-16] MEDS: sodium chloride 0.9% 1,000 ML 30 ML IV (07:52)
--- NOTE | 2020-04-16 08:20 | W.PM.OPSUD ---
Surgery/Procedure H&P Update DATE OF PROCEDURE: April 16, 2020 DATE H&P PERFORMED: 04/08/20 H&P UPDATE INFORMATION: I have reviewed H&P completed within last 30 days, I have examined patient prior to procedure and No changes to prior documentation PREOP DIAGNOSIS: GASTRIC LYMPHOMA PRIMARY INDICATION FOR PROCEDURE: The same PLANNED PROCEDURE: Operation Date: 04/16/20 08:50 Proposed Procedures p Portacath Placement 87511 C85.699(Not Applicable) - Neftaly Urrutia MD
--- NOTE | 2020-04-16 08:38 | SC_ITS ---
WS: [id number] C-arm FL for CVA [id number] REASON FOR EXAM: Right subclavian vein PowerPort Port-A-Cath placement FINDINGS: Fluoroscopic guidance for insertion of a right subclavian vein richard catheter placement the catheter appears to be in excellent position. SC/C-arm FL for CVA [id number] IMPRESSION: Successful placement of a Port-A-Cath in the subclavian approach on the right.
[2020-04-16] MEDS: heparin, porcine 1,000 unit/mL INJ 10 mL 10000 UNIT INJECTION (09:35)
[2020-04-16] MEDS: lidocaine 2% INJ 20 mL INJECTION (09:50)
--- NOTE | 2020-04-16 09:59 | P.OP_ITS ---
Operative Report Date of procedure: April 16, 2020 Pre-op Diagnosis: GASTRIC LYMPHOMA requiring long-term IV access Post-op diagnosis: same Procedure Done: Right subclavian vein PowerPort Port-A-Cath placement Interpretation of fluoroscopic guidance images was done by me through the whole entire procedure Implants: PowerPort right subclavian vein placed Surgeon: Neftaly Urrutia Air Defense Control Officer: agricultural engineering technologist Preet Circulating nurses Karine and Regi Potts Anesthesia: MAC (Ramya Crocker) Estimated blood loss (mL): 5 Condition: stable Disposition: same day Brief History: This is a pleasant 74 years old female patient diagnosed with gastric lymphoma requiring long-term IV access in the form of Port-A-Cath . plan of care; After thorough history physical examination and reviewing the chart, I counseled the patient for Port-A-Cath placement, indications, risks including pneumothorax and injury of major vascular structures, benefits,indications and alternatives were all discussed with the patient, patient understands and is interested to proceed. Rationale was carefully and clearly discussed with the patient.Appropriate informed consent have been reviewed and signed. Procedure: Patient was identified in the holding area and taken to the operative room and placed in supine position IV propofol was given by the anesthesia provider ,both arms were tucked,Time-out was done verifying the patient's name/date of /planned procedure and destination after the procedure, all were in agreement. SCDs confirmed to be functioning, preoperative antibiotics administered per protocol, and beta abigail protocol was confirmed, appropriate positioning of the patient was done by me. Medications were reviewed to assess for anticoagulant usage. Risks and benefits and prevention of central line associated blood stream infection (CLABSI) were discussed with the patient/CPOA, and a consent was obtained. Monitors were in place and monitored throughout the procedure. All necessary supplies were available prior to start. Hand hygiene was completed prior to starting. Maximum barrier technique was utilized including a sterile gown, sterile gloves with a hat and mask. Site was was prepped with [chlorhexidine] and a full body drape was placed. 5 mL of 2% lidocaine was injected into the skin with a 25 gauge needle. Prep& drape was done under the usual sterile technique, lidocaine 2% was injected at the site of the stick, started by right subclavian stick that retrieved venous blood was obtained from the first stick, a guidewire was then threaded and under the guidance of fluoroscopy position was confirmed to be in the IVC and my interpretation, there was some PVCs that upon putting onto the wire slightly out the PVCs were gone,at that point the guidewire was secured to the drapes with a hemostat and the needle was taken out, attention was then deviated towards creation of a pocket for the port were lidocaine 2% was inje cted using an 15 blade knife skin incision was created dissection using the Bovie to create a pocket for the Port-A-Cath to be accommodated, hemostasis was secured, after the port being appropriately flushed it was inserted into the pocket and a tunneler was used to accommodate the catheter of the port cath to be delivered through the incision first created at the site of the stick, at that point under fluoroscopy an estimated length was measured for the catheter and was cut at the designed level, followed by that a dilator with the sheath introduced onto the guidewire the dilator and the wire were retrieved and the catheter of the port was introduced via the sheath where it was peeled off and the catheter maintained to be in the SVC that was confirmed with fluoroscopy, and the fluoroscopy interpretation was done by me throughout the entire procedure. The port was secured to the fascia with using Prolene sutures, 4-0 Vicryl deep subdermal interrupted sutures, skin was then closed by 4-0 Monocryl as subcuticular closure. The stick site was closed by 4-0 Monocryl and Dermabond was used followed by dressing. Patient tolerated the procedure well was taken to the recovery area Count was correct at the end of the procedure I was present for the whole entire procedure Position of the catheter was checked with a postoperative chest x-ray and it was in good position without evidence of pneumothorax
--- NOTE | 2020-04-16 10:04 | XR_ITS ---
WS: [id number] XR chest 1V portable [id number] REASON FOR EXAM: Status post right subclavian Port-A-Cath placement FINDINGS: A Mediport is seen extends from the right side in good position. Extends from the subclavia n approach. The heart was normal. There is no pneumonia, pleural effusion, pulmonary edema, or mass effect. The hilum and apices normal. The chest is similar to November 23, 2019. There is arteriosclerotic changes in the arch of the aorta. XR/XR chest 1V portable [id number] IMPRESSION: Subclavian Port-A-Cath placement satisfactory alignment no complications.
[2020-04-16 10:10] VITALS: BP 147/73; PULSE 69; RESP 18; TEMP 36.4; O2SAT 97
[2020-04-16 10:35] VITALS: BP 158/74; PULSE 69; RESP 18; TEMP 36.4; O2SAT 97
== END 2020-04-16 10:49 | disposition home or self-care (01) ==
PROVIDERS: PCP Internal Medicine; Visit Provider Surgery
PROC: (CPT 36561; principal; 2020-04-16 08:50)
DX: C85.99 Non-Hodgkin lymphoma, unspecified, extranodal and solid organ sites (principal); K21.9 Gastro-esophageal reflux disease without esophagitis; I69.831 Monoplegia of upper limb following other cerebrovascular disease affecting right dominant side; E78.5 Hyperlipidemia, unspecified; Z85.3 Personal history of malignant neoplasm of breast; Z79.82 Long term (current) use of aspirin
CPT/HCPCS: 36561; 12345; 71045; 76000; 77001; C1788; J0690; J1644; J2001; J2704; J3010; J7030

== ENCOUNTER 2020-05-03 13:16 | Outpatient (CLI) | payer MEDICARE, SELFPAY ==
--- NOTE | 2020-05-03 13:30 | USCV_ITS ---
Jenna Nye Age: 74 Gender: F : 1945 Exam Date: 05/03/2020 13:31 Ordering Phys: Carl Thompson MD Technologist: Melva Bedolla Exam Location: [facility] [place] Indication: pre chemo, lymphoma BP: / HR: 73 Rhythm: Other Technical Quality: Adequate MEASUREMENTS (Male / Female) Normal Values 2D ECHO LV Diastolic Diameter PLAX 3.9 cm 4.2 - 5.9 / 3.9 - 5.3 cm LV Systolic Diameter PLAX 2.1 cm IVS Diastolic Thickness 0.7 cm 0.6 - 1.0 / 0.6 - 0.9 cm IVS Systolic Thickness 1.2 cm LVPW Diastolic Thickness 0.9 cm 0.6 - 1.0 / 0.6 - 0.9 cm LVPW Systolic Thickness 1.6 cm LVOT Diameter 2.0 cm LV Ejection Fraction 2D Teich 77.3 % LV Ejection Fraction MOD 2C 65.4 % LV Ejection Fraction 2C AL 64.5 % LA Diameter 3.1 cm LA Width 2.3 cm LA Height 4.3 cm RA Width 2.9 cm RA Height 3.0 cm M-MODE LV Diastolic Diameter MM 5.3 cm 4.2 - 5.9 / 3.9 - 5.3 cm LV Systolic Diameter MM 3.3 cm LV Ejection Fraction MM Teich 66.4 % IVS Diastolic Thickness MM 0.8 cm 0.6 - 1.0 / 0.6 - 0.9 cm IVS Systolic Thickness MM 1.1 cm LVPW Diastolic Thickness MM 0.6 cm 0.6 - 1.0 / 0.6 - 0.9 cm LVPW Systolic Thickness MM 1.5 cm Aortic Annulus Diameter 2.5 cm LA Ao Ratio MM 1.2 MV E Point Septal Separation 0.4 cm DOPPLER AV Peak Velocity 125.0 cm/s LVOT Peak Velocity 109.0 cm/s AV Area Cont Eq vti 2.5 cm squared AV Area Cont Eq pk 2.9 cm squared MV Peak Velocity 165.0 cm/s MV Area PHT 5.0 cm squared Mitral E to A Ratio 0.7 MV E' Velocity 8.0 cm/s Mitral E to MV E' Ratio 15.9 Mitral E to LV E' Lateral Ratio 13.0 Mitral E to LV E' Septal Ratio 20.6 TR Peak Velocity 227.0 cm/s TR Peak Gradient 20.6 mmHg Right Atrial Pressure 3.0 mmHg Pulmonary Artery Systolic Pressu 23.6 mmHg PV Peak Velocity 123.0 cm/s RV Acceleration Time 0.1 s FINDINGS Left Ventricle Normal left ventricular size and systolic function, EF 62 %. No regional wall motion abnormalities. Grade I/IV diastolic dysfunction (abnormal relaxation filling pattern), normal to mildly elevated filling pressures. Right Ventricle Normal right ventricular size and systolic function. Right Atrium Normal right atrial size. Left Atrium Moderately increased left atrial size. Mitral Valve Thickened mitral valve. Moderate mitral annular calcification. Aortic Valve Thickened aortic valve. Trace aortic valve regurgitation. Tricuspid Valve Mild tricuspid valve regurgitation. Pulmonic Valve Pulmonic valve not well visualized. Pericardium No pericardial effusion. Aorta Normal aortic annulus size. CONCLUSIONS Normal left ventricular size and systolic function, EF 62 %. No regional wall motion abnormalities. Grade I/IV diastolic dysfunction (abnormal relaxation filling pattern), normal to mildly elevated filling pressures. Moderately increased left atrial size. Thickened mitral valve. Moderate mitral annular calcification. Thickened aortic valve. Trace aortic valve regurgitation. Mild tricuspid valve regurgitation. Estimated pulmonary artery peak systolic pressure of 24 mmHg There is no pericardial effusion. There are no intracardiac masses. No previous study is available for comparison. Dr Gustabo Orta MD FAC (Electronically Signed) Final Date: 03 May 2020 17:05 S
== END 2020-05-03 13:17 | disposition home or self-care (01) ==
LOC: RAD 13:18
PROVIDERS: PCP Internal Medicine; Visit Provider Internal Medicine Hematology & Oncology
DX: Z79.899 Other long term (current) drug therapy (principal); C85.99 Non-Hodgkin lymphoma, unspecified, extranodal and solid organ sites; I08.3 Combined rheumatic disorders of mitral, aortic and tricuspid valves
CPT/HCPCS: 93306

== ENCOUNTER 2020-05-10 07:20 | Outpatient (CLI) | payer MEDICARE, SELFPAY ==
[2020-05-10 14:38] LABS: Basophils # 0.2 10^3/uL (0.0-0.1); Basophils % 1.7 %; Eosinophils # 0.6 10^3/uL (0.0-0.8); Eosinophils % 5.5 %; Hematocrit 40.7 % (37.0-47.0); Lymphocytes # 3.3 10^3/uL (0.8-4.8); Lymphocytes % 30.1 %; Mean Corpuscular HGB Conc 31.9 g/dL (30.0-36.0); Mean Corpuscular Volume 90.8 fL (81-99); Mean Platelet Volume 10.4 fL (7.4-10.4); Monocytes # 1.2 10^3/uL (0.2-0.9); Monocytes % 10.7 %; Neutrophils # 5.64 10^3/uL (1.8-7.7); Neutrophils % 51.7 %; Nucleated Red Blood Cells % 0 %; Platelet Count 307 10^3/cmm (130-400); Red Blood Count 4.48 10^6/uL (4.1-5.3); Red Cell Distribution Width 14.1 % (12.1-15.1); White Blood Count 10.9 10^3/uL (4.0-10.0)
[2020-05-10 14:56] LABS: Alanine Aminotransferase 14 U/L (0-33); Albumin Level 4.1 g/dL (3.5-5.2); Alkaline Phosphatase 74 IU/L (35-105); Blood Urea Nitrogen 16 mg/dL (8-23); Calcium 9.8 mg/dL (8.5-10.5); Carbon Dioxide 27 mmol/L (22-29); Chloride 97 mmol/L (98-107); Globulin 3.7 g/dL (1.3-4.6); Glucose 72 mg/dL (65-115); Osmolality Calculated 281 mOsm/kg (285-295); Sodium 138 mmol/L (136-145); Total Bilirubin 0.3 mg/dL (0.15-1.2); Total Protein 7.8 g/dL (6.6-8.7)
[2020-05-10 16:42] LABS: Aspartate Amino Transferase 26 U/L (0-32); Lactate Dehydrogenase 321 U/L (135-214)
[2020-05-10 18:03] LABS: Hepatitis A Antibody IgM Non-Reactive (Nonreactive); Hepatitis B Core AB, Total Non-Reactive (Nonreactive); Hepatitis B Surface AB 3.5 (0-8.5); Hepatitis B Surface Antigen Non-Reactive (Nonreactive); Hepatitis C Virus Antibody Non-Reactive (Nonreactive)
== END 2020-05-10 07:21 | disposition home or self-care (01) ==
LOC: ONCMED 15:08
PROVIDERS: PCP Internal Medicine; Visit Provider Internal Medicine Hematology & Oncology
DX: C50.412 Malignant neoplasm of upper-outer quadrant of left female breast (principal); Z17.0 Estrogen receptor positive status [ER+]; C85.99 Non-Hodgkin lymphoma, unspecified, extranodal and solid organ sites; E11.9 Type 2 diabetes mellitus without complications; K57.90 Diverticulosis of intestine, part unspecified, without perforation or abscess without bleeding; I10 Essential (primary) hypertension; M47.892 Other spondylosis, cervical region; Z79.811 Long term (current) use of aromatase inhibitors; Z79.899 Other long term (current) drug therapy; Z20.5 Contact with and (suspected) exposure to viral hepatitis; Z11.59 Encounter for screening for other viral diseases
CPT/HCPCS: 80053; 83615; 85025; 86705; 86706; 86709; 86803; 87340

== ENCOUNTER 2020-05-13 07:32 | Outpatient (CLI) | payer MEDICARE, SELFPAY ==
[2020-05-13] MEDS: sodium chloride 0.9% 1,000 ML 999 ML IV (09:21)
[2020-05-13] MEDS: acetaminophen 325 mg Tablet 650 MG PO (09:21)
[2020-05-13] MEDS: pegfilgrastim 6 mg/0.6 mL Kit (onpro) SUBCUT (16:50)
--- NOTE | 2020-05-13 17:17 | ONC FU_ITS ---
Dr. Thompson follow up note Patient: Jenna Nye V Unit #: [id number]: 1945 Dicatated By: Carl Thompson M.D.Date of Visit:May 13, 2020 Onc Med Follow-up/Prog Note History of Present Illness: This is a 74 year old postmenopausal woman, who routine laboratory mammogram screening mammogram from 01/12/2014 was found to have a suspicious 9.6 mm nodule at 3:00 position. Additional views and ultrasound was performed on 02/03/2014. It showed 2 small suspicious lesions at 3:00 -5 cm from the nipple and at 3:00 -3 cm from the nipple. The ultrasound-guided biopsy on 02/22/2014 showed mixed ductal and lobular infiltrating carcinoma, grade 2/3, involving both locations. Prognostic markers revealed ER 99%, KS 97%, HER-2 2+ by IHC, FISH ratio 1.08. On 03/08/2014 she underwent left axilla sentinel lymph node biopsy and left breast lumpectomy twice. Her pathology showed a residual invasive carcinoma with extensive component of DCIS. The largest invasive component measured 1.4 cm. Thus, stage IA, T1c, N0, M0. She required 2 additional surgeries on 03/22/2014 and on 04/05/2014 for positive margins. The Oncotype DX score is 16, low risk, no adjuvant chemotherapy was delivered. She completed 5040 cGy of radiation to the breast followed by boost on 08/02/14. She began on adjuvant Arimidex therapy in August of 2014. The treatment was complicated with persistent headaches and hot flashes. Her therapy was changed to Femara in September of 2014. MRI of the brain was negative for metastatic disease on 12/2/14. Baseline DEXA scan on 08/15/2014 was normal. She had taken Femara until 11-30-16 at which time it was placed on hold as well as the Effexor due to problems with night cao and worsening hot flashes as well as some joint pain. She was off the Femara and Effexor for a little over 4 weeks before she attempted to resume it. She has resumed it along with the Effexor and has tolerated it well. and completed her adjuvant hormonal therapy on 04/01/2020 As per patient in September 2019, she had 'bad' cough and mid chest pain, Went to [facility] [place] [facility] at that time he was taught it could be due to esophageal infection, she was treated with antibiotics but her pain continued to progress especially after eating eventually, on 02/14/2020 she underwent EGD evaluation which showed gastric mass, biopsy was obtained which confirmed high-grade B-cell lymphoma, FISH to rule out Burkitt's was negative for IGH-MYC fusion ,t(8;14). Patient underwent CT PET scan on 02/24/2020 which showed hypermetabolic gastric wall thickening with questionable invasion into adjacent liver. No evidence of lavelle or additional extranodal disease. Echocardiogram done on May 10, 2020 showed ejection fraction 62% Started on systemic chemotherapy with R-CHOP on May 13, 2020, plan is to give her [address] scan Came for follow-up, denies any specific complaints, no fever chills, no nausea or vomiting, no diarrhea or constipation, no hemoptysis or hematemesis, no night sweats. Medications: Acetaminophen 2 Capsule (of 500 mg) Oral PRN, Calcium 600/Vitamin D 1 (600-400 mg - Units) Tablet Oral b.i.d., Eye Drops 2 Drop(s) Solution Ophthalmic daily PRN, Femara 1 (2.5 mg) Tablet Oral daily, hydroCHLOROthiazide 1 Tablet Oral daily, Lisinopril 1 (30 mg) Tablet Oral b.i.d., Simvastatin 1 (20 mg) Tablet Oral daily, Venlafaxine HCl 1 (75 mg) Tablet Oral daily Allergies: Eggs Review of Systems: Review of Systems is not available for this patient. Vital Signs: Performed on May 13, 2020 08:14 Height - 62.00 in Weight - 152.4 lbs (LOW) BSA - 1.70 sq.m BMI - 27.87 Temperature - 97.7 F (LOW) Pulse - 56 /min (LOW) Respiration - 20 /min BP - 138/61 mm(hg) O2 Sat - 98 % Pain - 0 Performance Status: 0 - Fully active, able to carry on all predisease activities without restrictions. (ECOG) Physical Examination: Respiratory - Lungs are clear, Cardiovascular - Regular rate and rhythm of heart, Gastrointestinal - Soft, bowel sounds present, Extremities - No visible edema. Lab/Imaging: Most recent lab results are not available for this patient. 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 There is loss of fat plane between posterior left hepatic lobe and invasion cannot be excluded. No evidence of lavelle or additional extranodal disease. 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 The Oncotype DX score is 16, corresponding to about 10% risk of 10 year recurrence after completion of hormonal therapy. She completed adjuvant radiation on 08/02/14. She is a candidate hormonal therapy with aromatase inhibitors for 5 years, Arimidex at 1 mg daily was recommended. The side effects of the treatment include worsening arthralgias and accelerated bone density loss amongst others. Arimidex therapy began in August of 2014, thus far complicated with significant debilitating headaches and hot flashes. Treatment was changed to Femara, headaches resolved. Hot flashes resolved with Effexor. She is doing well. She had a hip replacement in 2017. She remains on Femara and Effexor. Mrs Nye presents today with concerns of persistent left breast pain for at least 2 weeks. Her CA 27-29 was mildly elevated at her December 2017 visit .Bilateral mammogram done on 04/21/2018 showed BI-RADS 2 benign Plan: Discussed with patient regarding her labs white blood count 10.9 hemoglobin 13 crit 40.7 platelets 307 CMP within normal limits but LDH 321 Clinically, patient doing reasonably well, now being started on systemic therapy with R-CHOP with Neulasta support to prevent chemotherapy-induced neutropenia, today and plan to give her 3 cycles of chemotherapy followed by CT PET scan if it shows complete response, then we will discuss about either involved field radiation therapy or further consolidation chemotherapy. Patient return to clinic in 2 weeks with CBC CMP Patient is a diabetic, so with high-dose prednisone patient was advised to monitor her blood sugar and follow sliding scale Signed By: Carl Thompson M.D. <<Signature on File>>
== END 2020-05-13 07:33 | disposition home or self-care (01) ==
LOC: ONCMED 07:35
PROVIDERS: PCP Internal Medicine; Visit Provider Internal Medicine Hematology & Oncology
DX: Z51.12 Encounter for antineoplastic immunotherapy (principal); Z51.11 Encounter for antineoplastic chemotherapy; C85.99 Non-Hodgkin lymphoma, unspecified, extranodal and solid organ sites; C50.412 Malignant neoplasm of upper-outer quadrant of left female breast; Z17.0 Estrogen receptor positive status [ER+]; Z79.811 Long term (current) use of aromatase inhibitors; E11.9 Type 2 diabetes mellitus without complications; K57.90 Diverticulosis of intestine, part unspecified, without perforation or abscess without bleeding; I10 Essential (primary) hypertension; M19.90 Unspecified osteoarthritis, unspecified site
CPT/HCPCS: 96367; 96372; 96413; 96415; 96417; 99214; J1100; J1200; J1453; J2469; J2505; J7030; J7040; J9000; J9070; J9312; J9370

== ENCOUNTER 2020-05-27 13:18 | Outpatient (CLI) | payer MEDICARE, OTHER, SELFPAY ==
[2020-05-27 14:35] LABS: Basophils % 1.5 %; Eosinophils % 0.4 %; Hematocrit 36.5 % (37.0-47.0); Hemoglobin 11.8 g/dL (11.5-15.3); Lymphocytes # 0.6 10^3/uL (0.8-4.8); Lymphocytes % 24.5 %; Mean Corpuscular HGB Conc 32.3 g/dL (30.0-36.0); Mean Corpuscular Volume 89.7 fL (81-99); Mean Platelet Volume 9.2 fL (7.4-10.4); Monocytes # 0.8 10^3/uL (0.2-0.9); Monocytes % 28.7 %; Neutrophils # 1.09 10^3/uL (1.8-7.7); Neutrophils % 41.8 %; Nucleated Red Blood Cells % 0 %; Platelet Count 305 10^3/cmm (130-400); Red Blood Count 4.07 10^6/uL (4.1-5.3); Red Cell Distribution Width 14.1 % (12.1-15.1); White Blood Count 2.6 10^3/uL (4.0-10.0)
[2020-05-27 14:44] LABS: Alanine Aminotransferase 20 U/L (0-33); Albumin Level 3.7 g/dL (3.5-5.2); Alkaline Phosphatase 52 IU/L (35-105); Anion Gap 15.7 (5-19); Aspartate Amino Transferase 17 U/L (0-32); Blood Urea Nitrogen 16 mg/dL (8-23); Calcium 8.9 mg/dL (8.5-10.5); Carbon Dioxide 28 mmol/L (22-29); Chloride 93 mmol/L (98-107); Globulin 3.1 g/dL (1.3-4.6); Glucose 216 mg/dL (65-115); Osmolality Calculated 279 mOsm/kg (285-295); Potassium 3.7 mmol/L (3.5-5.1); Sodium 133 mmol/L (136-145); Total Bilirubin 0.2 mg/dL (0.15-1.2); Total Protein 6.8 g/dL (6.6-8.7)
--- NOTE | 2020-05-27 15:52 | ONC FU_ITS ---
Dr. Thompson follow up note Patient: Jenna Nye V Unit #: [id number]: 1945 Dicatated By: Carl Thompson M.D.Date of Visit:May 27, 2020 Onc Med Follow-up/Prog Note History of Present Illness: This is a 74 year old postmenopausal woman, who routine laboratory mammogram screening mammogram from 01/12/2014 was found to have a suspicious 9.6 mm nodule at 3:00 position. Additional views and ultrasound was performed on 02/03/2014. It showed 2 small suspicious lesions at 3:00 -5 cm from the nipple and at 3:00 -3 cm from the nipple. The ultrasound-guided biopsy on 02/22/2014 showed mixed ductal and lobular infiltrating carcinoma, grade 2/3, involving both locations. Prognostic markers revealed ER 99%, MD 97%, HER-2 2+ by IHC, FISH ratio 1.08. On 03/08/2014 she underwent left axilla sentinel lymph node biopsy and left breast lumpectomy twice. Her pathology showed a residual invasive carcinoma with extensive component of DCIS. The largest invasive component measured 1.4 cm. Thus, stage IA, T1c, N0, M0. She required 2 additional surgeries on 03/22/2014 and on 04/05/2014 for positive margins. The Oncotype DX score is 16, low risk, no adjuvant chemotherapy was delivered. She completed 5040 cGy of radiation to the breast followed by boost on 08/02/14. She began on adjuvant Arimidex therapy in August of 2014. The treatment was complicated with persistent headaches and hot flashes. Her therapy was changed to Femara in September of 2014. MRI of the brain was negative for metastatic disease on 12/2/14. Baseline DEXA scan on 08/15/2014 was normal. She had taken Femara until 11-30-16 at which time it was placed on hold as well as the Effexor due to problems with night cao and worsening hot flashes as well as some joint pain. She was off the Femara and Effexor for a little over 4 weeks before she attempted to resume it. She has resumed it along with the Effexor and has tolerated it well. 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 Patient underwent CT PET scan on 02/24/2020 which showed hypermetabolic gastric wall thickening with questionable invasion into adjacent liver. No evidence of lavelle or additional extranodal disease. Echocardiogram done on May 10, 2020 showed ejection fraction 62% Started on systemic chemotherapy with R-CHOP on May 13, 2020, plan is to give her [address] scan Came for follow-up, denies any specific complaint except loss of hair, but no fever chills, no nausea or vomiting, no diarrhea or constipation, complaining of chronic back pain for which she took 'old' pain medication which helped her. Also had some problem with blood sugar, probably due to steroids, but now improving. Otherwise tolerated first cycle of chemotherapy with R-CHOP well Medications: Acetaminophen 2 Capsule (of 500 mg) Oral PRN, Calcium 600/Vitamin D 1 (600-400 mg - Units) Tablet Oral b.i.d., Eye Drops 2 Drop(s) Solution Ophthalmic daily PRN, Femara 1 (2.5 mg) Tablet Oral daily, hydroCHLOROthiazide 1 Tablet Oral daily, Lisinopril 1 (30 mg) Tablet Oral b.i.d., Simvastatin 1 (20 mg) Tablet Oral daily, Venlafaxine HCl 1 (75 mg) Tablet Oral daily Allergies: Eggs Review of Systems: Review of Systems is not available for this patient. Vital Signs: Performed on May 27, 2020 15:23 Height - 62.00 in Weight - 146.4 lbs (LOW) BSA - 1.67 sq.m BMI - 26.78 Temperature - 97.6 F (LOW) Pulse - 76 /min Respiration - 18 /min BP - 176/88 mm(hg) (HIGH) O2 Sat - 99 % Pain - 0 Performance Status: 1 - No physically strenuous activity, but ambulatory and able to carry out light or sedentary work (e.g. office work, light house work). (ECOG) Physical Examination: Respiratory - Lungs are clear, Cardiovascular - Regular rate and rhythm of heart, Gastrointestinal - Soft, bowel sounds present, Extremities - No visible edema. Lab/Imaging: Test performed on May 10, 2020 07:20 LDH (Total) 321 U/L Sodium 138 mmol/L Potassium 4.0 mmol/L Chloride 97 mmol/L CO2 27 mmol/L Anion Gap 19.0 BUN 16 mg/dL Creatinine 0.7 mg/dL Cr Clearance (Est) 75.1000 mL/min Glucose 72 mg/dL Calcium 9.8 mg/dL Protein, Total 7.8 g/dL Albumin 4.1 g/dL Globulin 3.7 g/dL Bilirubin, Total 0.3 mg/dL ALT (SGPT) 14 U/L AST (SGOT) 26 U/L Alkaline Phosphatase 74 IU/L WBC 10.9 10 3/uL RBC 4.48 10 6/uL HGB 13.0 g/dL HCT 40.7 % MCV 90.8 fL MCH 29.0 pg MCHC 31.9 g/dL RDW 14.1 % Platelet Count 307 10 3/cmm MPV 10.4 fL Neutrophils 5.64 10 3/uL Lymphocytes 3.3 10 3/uL Monocytes 1.2 10 3/uL Eosinophils 0.6 10 3/uL Basophils 0.2 10 3/uL Neutrophil % 51.7 % Lymphocyte % 30.1 % Monocyte % 10.7 % Eosinophil % 5.5 % Basophils % 1.7 % NRBC % 0 % Impression: 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 There is loss of fat plane between posterior left hepatic lobe and invasion cannot be excluded. No evidence of lavelle or additional extranodal disease. 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 The Oncotype DX score is 16, corresponding to about 10% risk of 10 year recurrence after completion of hormonal therapy. She completed adjuvant radiation on 08/02/14. She is a candidate hormonal therapy with aromatase inhibitors for 5 years, Arimidex at 1 mg daily was recommended. The side effects of the treatment include worsening arthralgias and accelerated bone density loss amongst others. Arimidex therapy began in August of 2014, thus far complicated with significant debilitating headaches and hot flashes. Treatment was changed to Femara, headaches resolved. Hot flashes resolved with Effexor. She is doing well. She had a hip replacement in 2016. She remains on Femara and Effexor. Mrs Nye presents today with concerns of persistent left breast pain for at least 2 weeks. Her CA 27-29 was mildly elevated at her December 2017 visit .Bilateral mammogram done on 04/21/2018 showed BI-RADS 2 benign Plan: Discussed with the patient regarding her labs white blood count two-point globin 11.8 hematocrit 36.5 platelets 305 CMP within normal limit except sodium 133 glucose 216 Clinically, patient is doing well now being treated with systemic therapy with R-CHOP, tolerating well but with expected side effects e.g. hair loss, generalized weakness and fatigue hyperglycemia probably due to steroids. Her blood counts showed progressive leukopenia/neutropenia despite of Neulasta, will continue to monitor return to clinic in 1 week with CBC CMP if leukopenia/neutropenia resolves then will consider second cycle of chemotherapy with R-CHOP otherwise wait for another week Signed By: Carl Thompson M.D. <<Signature on File>>
== END 2020-05-27 13:19 | disposition home or self-care (01) ==
PROVIDERS: PCP Internal Medicine; Visit Provider Internal Medicine Hematology & Oncology
DX: C85.19 Unspecified B-cell lymphoma, extranodal and solid organ sites (principal); C50.812 Malignant neoplasm of overlapping sites of left female breast; D70.1 Agranulocytosis secondary to cancer chemotherapy; T45.1X5A Adverse effect of antineoplastic and immunosuppressive drugs, initial encounter; R53.1 Weakness; R53.83 Other fatigue; R73.9 Hyperglycemia, unspecified; Z17.0 Estrogen receptor positive status [ER+]; Z79.811 Long term (current) use of aromatase inhibitors; Z79.899 Other long term (current) drug therapy
CPT/HCPCS: 36591; 80053; 85025; 99214

== ENCOUNTER 2020-06-03 07:24 | Outpatient (CLI) | payer MEDICARE, OTHER, SELFPAY ==
[2020-06-03 08:46] LABS: Basophils # 0.1 10^3/uL (0.0-0.1); Basophils % 1.2 %; Eosinophils % 0.3 %; Hemoglobin 12.1 g/dL (11.5-15.3); Lymphocytes # 1.9 10^3/uL (0.8-4.8); Lymphocytes % 16.5 %; Mean Corpuscular HGB Conc 31.8 g/dL (30.0-36.0); Mean Corpuscular Hemoglobin 28.1 pg (28.0-34.0); Mean Corpuscular Volume 88.2 fL (81-99); Mean Platelet Volume 9.1 fL (7.4-10.4); Monocytes # 1.3 10^3/uL (0.2-0.9); Neutrophils # 7.74 10^3/uL (1.8-7.7); Neutrophils % 66.8 %; Nucleated Red Blood Cells % 0 %; Platelet Count 347 10^3/cmm (130-400); Red Blood Count 4.31 10^6/uL (4.1-5.3); Red Cell Distribution Width 14.6 % (12.1-15.1); White Blood Count 11.6 10^3/uL (4.0-10.0)
[2020-06-03 08:50] LABS: Alanine Aminotransferase 18 U/L (0-33); Albumin Level 3.8 g/dL (3.5-5.2); Alkaline Phosphatase 52 IU/L (35-105); Anion Gap 12.3 (5-19); Aspartate Amino Transferase 15 U/L (0-32); Blood Urea Nitrogen 26 mg/dL (8-23); Calcium 9.6 mg/dL (8.5-10.5); Carbon Dioxide 29 mmol/L (22-29); Chloride 97 mmol/L (98-107); Globulin 2.8 g/dL (1.3-4.6); Glucose 230 mg/dL (65-115); Osmolality Calculated 284 mOsm/kg (285-295); Potassium 3.3 mmol/L (3.5-5.1); Sodium 135 mmol/L (136-145); Total Bilirubin 0.2 mg/dL (0.15-1.2); Total Protein 6.6 g/dL (6.6-8.7)
[2020-06-03] MEDS: acetaminophen 325 mg Tablet 650 MG PO (10:35)
[2020-06-03] MEDS: sodium chloride 0.9% 500 ML 999 ML IV (10:35)
--- NOTE | 2020-06-07 17:41 | ONC FU_ITS ---
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 History of Present Illness: Mrs Nye is a 74 year old postmenopausal woman who underwent routine screening mammogram on 01/12/2014 and was found to have a suspicious 9.6 mm nodule at 3:00 position. Additional views and ultrasound was performed on 02/03/2014. It showed 2 small suspicious lesions at 3:00 -5 cm from the nipple and at 3:00 -3 cm from the nipple. The ultrasound-guided biopsy on 02/22/2014 showed mixed ductal and lobular infiltrating carcinoma, grade 2/3, involving both locations. Prognostic markers revealed ER 99%, TX 97%, HER-2 2+ by IHC, FISH ratio 1.08. On 03/08/2014 she underwent left axilla sentinel lymph node biopsy and left breast lumpectomy twice. Her pathology showed a residual invasive carcinoma with extensive component of DCIS. The largest invasive component measured 1.4 cm. Thus, stage IA, T1c, N0, M0. She required 2 additional surgeries on 03/22/2014 and on 04/05/2014 for positive margins. The Oncotype DX score is 16, low risk, no adjuvant chemotherapy was delivered. She completed 5040 cGy of radiation to the breast followed by boost on 08/02/14. She began on adjuvant Arimidex therapy in August of 2014. The treatment was complicated with persistent headaches and hot flashes. Her therapy was changed to Femara in September of 2014. MRI of the brain was negative for metastatic disease on 10/02/14. Baseline DEXA scan on 08/15/2014 was normal. She had taken Femara until 11-30-16 at which time it was placed on hold as well as the Effexor due to problems with night cao and worsening hot flashes as well as some joint pain. She was off the Femara and Effexor for a little over 4 weeks before she attempted to resume it. She has resumed it along with the Effexor and has tolerated it well. She completed her adjuvant hormonal therapy on 04/01/2020 As per patient in September 2019, she had 'bad' cough and mid chest pain, Went [place] [facility] [place] he was taught it could be due to esophageal infection, she was treated with antibiotics but her pain continued to progress especially after eating eventually, on 02/14/2020 she underwent EGD evaluation which showed gastric mass, biopsy was obtained which confirmed high-grade B-cell lymphoma, FISH to rule out Burkitt's was negative for IGH-MYC fusion ,t(8;14). Patient underwent CT PET scan on 02/24/2020 which showed hypermetabolic gastric wall thickening with questionable invasion into adjacent liver. No evidence of lavelle or additional extranodal disease. Echocardiogram done on May 10, 2020 showed ejection fraction 62%. Ms Nye tarted on systemic chemotherapy with R-CHOP on May 13, 2020. The current treatment plan is to give her [address] PET scan Ms Nye is here today for follow-up. She is due for cycle 2 R-CHOP. She states overall she is doing well. She did tolerate the first cycle very well. She states she is eating better. She is had some intermittent nausea but is controlled with antiemetics. She states her energy is improving. She does tire easily but recovers well with rest. She states that she has a left axillary nodule. She states it was there before when she had breast cancer and had returned again just recently. She thinks it is getting somewhat smaller with the treatment. She is past due for mammogram. She denies any other concerns. She has had no cough or orthopnea. She denies fever or chills. She denies diarrhea or constipation. She has had alopecia. She denies any neuropathy at this time. She states her bowels are normal for her. Her ECOG is 1. Past Medical History: Diabetes type II (diet controlled) Diverticulosis Hypertension Osteoarthritis (cervical spine) Past Surgical History: Cholecystectomy Hysterectomy Right Total Hip Arthroplasty in 2015 Colonoscopy in 2013 Allergies: Eggs Medications: Acetaminophen 2 Capsule (of 500 mg) Oral PRN Calcium 600/Vitamin D 1 (600-400 mg - Units) Tablet Oral b.i.d. Eye Drops 2 Drop(s) Solution Ophthalmic daily PRN Femara 1 (2.5 mg) Tablet Oral daily hydroCHLOROthiazide 1 Tablet Oral daily Lisinopril 1 (30 mg) Tablet Oral b.i.d. Simvastatin 1 (20 mg) Tablet Oral daily Venlafaxine HCl 1 (75 mg) Tablet Oral daily Family History: Ms. Nye's mother at age 69: cancer history consists of cancer. Ms. Nye's father at age 72: coronary artery disease. Social History: Ms. Nye is and she is retired. Ms. Nye has never smoked. She has no history of drinking. Ms. Nye reports the following support systems: lives with spouse, significant other, family, or friends, lives in own house, supportive family/friends willing to assist with needs, and adequate transportation available for expected visits. Her diet consists of regular meals. She indicates her activity level as: daily activities. Review Of Symptoms: Constitutional Denies fevers, chills. Occasional night sweats, Mild fatigue. Alopecia. Allergic/Immunologic eggs Eyes Denies significant visual changes. ENMT Denies changes in hearing, sore throat, mouth sores, difficulty or changes in swallowing ability. Endocrine No diabetes, thyroid disease or hormone replacement. Denies hot flashes or night sweats. Hematologic/Lymphatic Denies easy bleeding. The patient denies any tender or palpable lymph nodes. Easy bruising-chronic. Breasts no concerns Respiratory Denies dyspnea on exertion, chest pain. Denies cough. Cardiovascular Denies anginal chest pain. Gastrointestinal Denies nausea, vomiting, diarrhea, or constipation. Genitourinary (F) No hematuria, hesitancy, incontinence, vaginal bleeding, discharge or other problems with urination. Musculoskeletal Occasional right hip pain-chronic and controlled with OTC pain meds.. Integumentary Denies chronic rashes, inflammation, ulcerations or skin changes. Neurologic Denies headache, blurred vision, and no areas of focal weakness or numbness. Psychiatric Denies depression, anxiety. Vital Signs: Performed on Jun 03, 2020 09:49 Height - 62.00 in Weight - 147.2 lbs (HIGH) BSA - 1.68 sq.m BMI - 26.92 Temperature - 96.7 F (LOW) Pulse - 67 /min Respiration - 20 /min BP - 146/67 mm(hg) (HIGH) O2 Sat - 95 % (LOW) Pain - 0,1 - No physically strenuous activity, but ambulatory and able to carry out light or sedentary work (e.g. office work, light house work). (ECOG) Physical Examination: Constitutional Alert, oriented, no acute distress. Skin pink, warm and dry. Alopecia of scalp, eyebrows and partial eye lashes. Head Normocephalic; atraumatic. Eyes Conjunctivae and sclerae are clear and without icterus. Pupils are reactive and equal. ENMT healing lesion on upper lip. < 4 mm, non draining. Neck Supple without masses or thyromegaly. No jugular venous distension. Respiratory Lungs are clear to auscultation without rhonchi or wheezing. Cardiovascular Regular rate and rhythm of heart without murmurs,clicks, gallops or rubs. Breasts Left axilla has a firm nodule that is 2 cm in diameter. Skin is peeling some but no open areas and no drainage. It is bright pink in color. It is not tender. She states she thinks it is shrinking some. Abdomen Non-tender, non-distended, no masses or ascites. Back/Spine Non-tender to palpation. Extremities No visible deformities, no cyanosis, clubbing or edema. Pulses 4+ and equal bilaterally. Musculoskeletal No tenderness or swelling, normal range of motion without obvious weakness. Integumentary No rashes or lesions. Neurologic No sensory or motor deficits, normal cerebellar function, normal gait. Psychiatric Alert and oriented times three. Coherent speech. Verbalizes understanding of our discussions today. Laboratory:Test performed on Jun 03, 2020 08:15 Sodium 135 mmol/L Potassium 3.3 mmol/L Chloride 97 mmol/L CO2 29 mmol/L Anion Gap 12.3 BUN 26 mg/dL Creatinine 0.9 mg/dL Cr Clearance (Est) 58.4100 mL/min Glucose 230 mg/dL Calcium 9.6 mg/dL Protein, Total 6.6 g/dL Albumin 3.8 g/dL Globulin 2.8 g/dL Bilirubin, Total 0.2 mg/dL ALT (SGPT) 18 U/L AST (SGOT) 15 U/L Alkaline Phosphatase 52 IU/L WBC 11.6 10 3/uL RBC 4.31 10 6/uL HGB 12.1 g/dL HCT 38.0 % MCV 88.2 fL MCH 28.1 pg MCHC 31.8 g/dL RDW 14.6 % Platelet Count 347 10 3/cmm MPV 9.1 fL Neutrophils 7.74 10 3/uL Lymphocytes 1.9 10 3/uL Monocytes 1.3 10 3/uL Eosinophils 0.0 10 3/uL Basophils 0.1 10 3/uL Neutrophil % 66.8 % Lymphocyte % 16.5 % Monocyte % 11.0 % Eosinophil % 0.3 % Basophils % 1.2 % NRBC % 0 % Test performed on May 10, 2020 07:20 LDH (Total) 321 U/L Impression: 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 There is loss of fat plane between posterior left hepatic lobe and invasion cannot be excluded. No evidence of lavelle or additional extranodal disease. 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 The Oncotype DX score is 16, corresponding to about 10% risk of 10 year recurrence after completion of hormonal therapy. She completed adjuvant radiation on 08/02/14. She is a candidate hormonal therapy with aromatase inhibitors for 5 years, Arimidex at 1 mg daily was recommended. The side effects of the treatment include worsening arthralgias and accelerated bone density loss amongst others. Arimidex therapy began in August of 2014, thus far complicated with significant debilitating headaches and hot flashes. Treatment was changed to Femara, headaches resolved. Hot flashes resolved with Effexor. She is doing well. She had a hip replacement in 2016. She remains on Femara and Effexor. Mrs Nye presents today with concerns of persistent left breast pain for at least 2 weeks. Her CA 27-29 was mildly elevated at her December 2017 visit .Bilateral mammogram done on 04/21/2018 showed BI-RADS 2 benign Plan: 1. Proceed with cycle 2 R-CHOP. 2. Continue current antiemetics and Neulasta support. This is working well for her. Labs from today were reviewed in detail and discussed with Ms. Valladares and a copy was given to her. WBC 11.6, hemoglobin 12.1, platelets 347,000 ANC is 7700 potassium 3.6. She states she will add dietary agents to increase this) random glucose 230 creatinine 0.9 LFTs are normal. 4. I have asked that she be set up for diagnostic bilateral mammogram with CAD. Of also requested ultrasound if indicated for the left axillary nodule. Is at the approximate 3 o'clock position. 5. Her last DEXA scan was 09/29/2016 which did report osteopenia. 6. She will continue with weekly interim counts and we will plan to see her back in 3 weeks with CBC CMP LDH at which time she will be due for cycle 3 of R-CHOP. 7. Ms. Ney was instructed to contact us in the interim should questions or problems arise. Signed By: Michael Garrison-, [facility] Carl Thompson MD <<Signature on File>>
== END 2020-06-03 07:25 | disposition home or self-care (01) ==
LOC: ONCMED 07:27
PROVIDERS: PCP Internal Medicine; Visit Provider Nurse Practitioner
DX: Z51.11 Encounter for antineoplastic chemotherapy (principal); Z51.12 Encounter for antineoplastic immunotherapy; C85.19 Unspecified B-cell lymphoma, extranodal and solid organ sites; C50.412 Malignant neoplasm of upper-outer quadrant of left female breast; R22.9 Localized swelling, mass and lump, unspecified; N64.4 Mastodynia; Z17.0 Estrogen receptor positive status [ER+]; Z85.3 Personal history of malignant neoplasm of breast; Z79.811 Long term (current) use of aromatase inhibitors; Z79.899 Other long term (current) drug therapy
CPT/HCPCS: 80053; 85025; 96361; 96367; 96411; 96413; 96415; 96417; 99214; J1100; J1200; J1453; J2469; J7040; J9000; J9070; J9312; J9370

== ENCOUNTER 2020-06-11 12:05 | Outpatient (CLI) | payer MEDICARE, OTHER, SELFPAY ==
[2020-06-11 13:23] LABS: Basophils # 0.1 10^3/uL (0.0-0.1); Basophils % 3.1 %; Eosinophils # 0.1 10^3/uL (0.0-0.8); Hematocrit 33.5 % (37.0-47.0); Hemoglobin 10.7 g/dL (11.5-15.3); Lymphocytes # 0.4 10^3/uL (0.8-4.8); Lymphocytes % 25.2 %; Mean Corpuscular HGB Conc 31.9 g/dL (30.0-36.0); Mean Corpuscular Hemoglobin 28.8 pg (28.0-34.0); Mean Corpuscular Volume 90.3 fL (81-99); Mean Platelet Volume 10.3 fL (7.4-10.4); Monocytes # 0.1 10^3/uL (0.2-0.9); Monocytes % 5.7 %; Neutrophils % 59.1 %; Nucleated Red Blood Cells % 0 %; Platelet Count 152 10^3/cmm (130-400); Red Blood Count 3.71 10^6/uL (4.1-5.3); Red Cell Distribution Width 14.8 % (12.1-15.1); White Blood Count 1.6 10^3/uL (4.0-10.0)
[2020-06-11 13:41] LABS: Alanine Aminotransferase 12 U/L (0-33); Albumin Level 3.6 g/dL (3.5-5.2); Alkaline Phosphatase 51 IU/L (35-105); Anion Gap 12.8 (5-19); Aspartate Amino Transferase 16 U/L (0-32); Blood Urea Nitrogen 11 mg/dL (8-23); Calcium 8.8 mg/dL (8.5-10.5); Carbon Dioxide 27 mmol/L (22-29); Chloride 100 mmol/L (98-107); Globulin 2.7 g/dL (1.3-4.6); Glucose 138 mg/dL (65-115); Osmolality Calculated 280 mOsm/kg (285-295); Potassium 3.8 mmol/L (3.5-5.1); Sodium 136 mmol/L (136-145); Total Bilirubin 0.4 mg/dL (0.15-1.2); Total Protein 6.3 g/dL (6.6-8.7)
[2020-06-11 13:47] LABS: Neutrophils # 0.94 10^3/uL (1.8-7.7); Slide Review Slide Review Perform
== END 2020-06-11 12:06 | disposition home or self-care (01) ==
LOC: RADSHAW 12:08 → ONCMED 12:24
PROVIDERS: PCP Internal Medicine; Visit Provider Nurse Practitioner
DX: C85.99 Non-Hodgkin lymphoma, unspecified, extranodal and solid organ sites (principal)
CPT/HCPCS: 36591; 80053; 85025

== ENCOUNTER 2020-07-01 12:45 | Outpatient (RCR) | payer MEDICARE, OTHER, SELFPAY ==
[2020-06-17 11:29] LABS: Basophils % 2.3 %; Eosinophils # 0.1 10^3/uL (0.0-0.8); Eosinophils % 5.2 %; Hematocrit 32.7 % (37.0-47.0); Hemoglobin 10.4 g/dL (11.5-15.3); Lymphocytes # 0.6 10^3/uL (0.8-4.8); Lymphocytes % 35.3 %; Mean Corpuscular HGB Conc 31.8 g/dL (30.0-36.0); Mean Corpuscular Hemoglobin 28.1 pg (28.0-34.0); Mean Corpuscular Volume 88.4 fL (81-99); Monocytes # 0.8 10^3/uL (0.2-0.9); Monocytes % 47.4 %; Neutrophils % 8.6 %; Nucleated Red Blood Cells % 0 %; Platelet Count 301 10^3/cmm (130-400); Red Cell Distribution Width 15.4 % (12.1-15.1); White Blood Count 1.7 10^3/uL (4.0-10.0)
[2020-06-17 12:34] LABS: Neutrophils # 0.15 10^3/uL (1.8-7.7)
[2020-06-21 09:19] LABS: Hematocrit 34.6 % (37.0-47.0); Mean Corpuscular HGB Conc 31.8 g/dL (30.0-36.0); Mean Corpuscular Hemoglobin 28.1 pg (28.0-34.0); Mean Corpuscular Volume 88.3 fL (81-99); Platelet Count 439 10^3/cmm (130-400); Red Blood Count 3.92 10^6/uL (4.1-5.3); Red Cell Distribution Width 15.9 % (12.1-15.1); White Blood Count 28.6 10^3/uL (4.0-10.0)
[2020-06-21 09:43] LABS: Alanine Aminotransferase 8 U/L (0-33); Albumin Level 3.7 g/dL (3.5-5.2); Alkaline Phosphatase 128 IU/L (35-105); Anion Gap 13.6 (5-19); Aspartate Amino Transferase 22 U/L (0-32); Blood Urea Nitrogen 12 mg/dL (8-23); Calcium 8.9 mg/dL (8.5-10.5); Carbon Dioxide 27 mmol/L (22-29); Chloride 102 mmol/L (98-107); Globulin 3.2 g/dL (1.3-4.6); Glucose 173 mg/dL (65-115); Osmolality Calculated 288 mOsm/kg (285-295); Potassium 3.6 mmol/L (3.5-5.1); Sodium 139 mmol/L (136-145); Total Bilirubin 0.2 mg/dL (0.15-1.2); Total Protein 6.9 g/dL (6.6-8.7)
[2020-06-21 10:08] LABS: Slide Review Slide Review Perform
[2020-06-21 10:12] LABS: Absolute Neutrophil 19.2 10^3/cmm (1.4-6.5); Band Neutrophils Absolute 3.1 10^3/cmm (0.0-1.2); Lymphocytes 7 %; Monocytes Absolute 1.7 10^3/cmm (0.1-0.6); Platelet Estimate Normal (Normal); Segmented Neutrophils 56 %; Total Cells Counted 100 (0-100)
[2020-06-24] MEDS: acetaminophen 325 mg Tablet 650 MG PO (10:03)
[2020-06-24] MEDS: sodium chloride 0.9% 500 ML 999 ML IV (10:05)
[2020-06-24] MEDS: pegfilgrastim 6 mg/0.6 mL Kit (onpro) SUBCUT (15:45)
--- NOTE | 2020-06-25 21:54 | ONC FU_ITS ---
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 History of Present Illness: Mrs Nye is a 74 year old postmenopausal woman who underwent routine screening mammogram on 01/12/2014 and was found to have a suspicious 9.6 mm nodule at 3:00 position. Additional views and ultrasound was performed on 02/03/2014. It showed 2 small suspicious lesions at 3:00 -5 cm from the nipple and at 3:00 -3 cm from the nipple. The ultrasound-guided biopsy on 02/22/2014 showed mixed ductal and lobular infiltrating carcinoma, grade 2/3, involving both locations. Prognostic markers revealed ER 99%, MS 97%, HER-2 2+ by IHC, FISH ratio 1.08. On 03/08/2014 she underwent left axilla sentinel lymph node biopsy and left breast lumpectomy twice. Her pathology showed a residual invasive carcinoma with extensive component of DCIS. The largest invasive component measured 1.4 cm. Thus, stage IA, T1c, N0, M0. She required 2 additional surgeries on 03/22/2014 and on 04/05/2014 for positive margins. The Oncotype DX score is 16, low risk, no adjuvant chemotherapy was delivered. She completed 5040 cGy of radiation to the breast followed by boost on 08/02/14. She began on adjuvant Arimidex therapy in August of 2014. The treatment was complicated with persistent headaches and hot flashes. Her therapy was changed to Femara in September of 2014. MRI of the brain was negative for metastatic disease on 10/02/14. Baseline DEXA scan on 08/15/2014 was normal. She had taken Femara until 11-30-16 at which time it was placed on hold as well as the Effexor due to problems with night cao and worsening hot flashes as well as some joint pain. She was off the Femara and Effexor for a little over 4 weeks before she attempted to resume it. She has resumed it along with the Effexor and has tolerated it well. 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 Patient underwent CT PET scan on 02/24/2020 which showed hypermetabolic gastric wall thickening with questionable invasion into adjacent liver. No evidence of lavelle or additional extranodal disease. Echocardiogram done on May 10, 2020 showed ejection fraction 62%. Ms Nye tarted on systemic chemotherapy with R-CHOP on May 13, 2020. The current treatment plan is to give her [address] PET scan Ms Nye is here today for follow-up. She is due for cycle 3 R-CHOP. She states overall she is doing well. She did tolerate the first cycle very well. She states she is eating better overall, but still not back to her normal appetite. She has had some intermittent nausea but is controlled with antiemetics-when she takes them. She states her energy is down after ther last cycle, but was starting to get better. She does tire easily but recovers well with rest. She states that she the left axillary nodule she has been monitoring is pretty much gone. She states it was there before when she had breast cancer and had returned again just recently. She is past due for mammogram. She denies any other concerns. She has had no cough or orthopnea. She denies fever or chills. She denies diarrhea or constipation. She has had alopecia. She denies any neuropathy at this time. She states her bowels are normal for her. Her ECOG is 1. Past Medical History: Diabetes type II (diet controlled) Diverticulosis Hypertension Osteoarthritis (cervical spine) Past Surgical History: Cholecystectomy Hysterectomy Right Total Hip Arthroplasty in 2015 Colonoscopy in 2013 Allergies: Eggs Medications: Acetaminophen 2 Capsule (of 500 mg) Oral PRN Calcium 600/Vitamin D 1 (600-400 mg - Units) Tablet Oral b.i.d. Eye Drops 2 Drop(s) Solution Ophthalmic daily PRN Femara 1 (2.5 mg) Tablet Oral daily hydroCHLOROthiazide 1 Tablet (of 25 mg) Oral daily Lisinopril 1 (30 mg) Tablet Oral b.i.d. Simvastatin 1 (20 mg) Tablet Oral daily Venlafaxine HCl 1 (75 mg) Tablet Oral daily Family History: Ms. Nye's mother at age 69: cancer history consists of cancer. Ms. Nye's father at age 72: coronary artery disease. Social History: Ms. Nye is and she is retired. Ms. Nye has never smoked. She has no history of drinking. Ms. Nye reports the following support systems: lives with spouse, significant other, family, or friends, lives in own house, supportive family/friends willing to assist with needs, and adequate transportation available for expected visits. Her diet consists of regular meals. She indicates her activity level as: daily activities. Review Of Symptoms: Constitutional Denies fevers, chills. Occasional night sweats, Mild fatigue. Alopecia. Allergic/Immunologic eggs Eyes Denies significant visual changes. ENMT Denies changes in hearing, sore throat, mouth sores, difficulty or changes in swallowing ability. Endocrine No diabetes, thyroid disease or hormone replacement. Denies hot flashes or night sweats. Hematologic/Lymphatic Denies easy bleeding. The patient denies any tender or palpable lymph nodes. Easy bruising-chronic. Respiratory Denies dyspnea on exertion, chest pain. Denies cough. Cardiovascular Denies anginal chest pain. Gastrointestinal Denies nausea, vomiting, diarrhea, or constipation. Genitourinary (F) No hematuria, hesitancy, incontinence, vaginal bleeding, discharge or other problems with urination. Musculoskeletal Occasional right hip pain-chronic and controlled with OTC pain meds.. Integumentary Denies chronic rashes, inflammation, ulcerations or skin changes. Neurologic Denies headache, blurred vision, and no areas of focal weakness or numbness. Psychiatric Denies depression, anxiety. Vital Signs: Performed on Jun 24, 2020 09:25 Height - 62.00 in Weight - 143.2 lbs (LOW) BSA - 1.66 sq.m BMI - 26.19 Temperature - 97.2 F (LOW) Pulse - 71 /min Respiration - 17 /min BP - 139/62 mm(hg) O2 Sat - 97 % Pain - 0,1 - No physically strenuous activity, but ambulatory and able to carry out light or sedentary work (e.g. office work, light house work). (ECOG) Physical Examination: Constitutional Alert, oriented, no acute distress. Skin pink, warm and dry. Alopecia of scalp, eyebrows and partial eye lashes. Head Normocephalic; atraumatic. Eyes Conjunctivae and sclerae are clear and without icterus. Pupils are reactive and equal. ENMT healing lesion on upper lip. < 4 mm, non draining. Neck Supple without masses or thyromegaly. No jugular venous distension. Respiratory Lungs are clear to auscultation without rhonchi or wheezing. Cardiovascular Regular rate and rhythm of heart without murmurs,clicks, gallops or rubs. Breasts Left axilla has a firm nodule that has diminished in size-it was 2 cm in diameter on 06/03/2020 exam and now is <0.5 cm. Abdomen Non-tender, non-distended, no masses or ascites. Back/Spine Non-tender to palpation. Extremities No visible deformities, no cyanosis, clubbing or edema. Musculoskeletal No tenderness or swelling, normal range of motion without obvious weakness. Integumentary No rashes or lesions. Neurologic No sensory or motor deficits, normal cerebellar function, normal gait. Psychiatric Alert and oriented times three. Coherent speech. Verbalizes understanding of our discussions today. Laboratory:Test performed on Jun 03, 2020 08:15 Sodium 135 mmol/L Potassium 3.3 mmol/L Chloride 97 mmol/L CO2 29 mmol/L Anion Gap 12.3 BUN 26 mg/dL Creatinine 0.9 mg/dL Cr Clearance (Est) 58.4100 mL/min Glucose 230 mg/dL Calcium 9.6 mg/dL Protein, Total 6.6 g/dL Albumin 3.8 g/dL Globulin 2.8 g/dL Bilirubin, Total 0.2 mg/dL ALT (SGPT) 18 U/L AST (SGOT) 15 U/L Alkaline Phosphatase 52 IU/L WBC 11.6 10 3/uL RBC 4.31 10 6/uL HGB 12.1 g/dL HCT 38.0 % MCV 88.2 fL MCH 28.1 pg MCHC 31.8 g/dL RDW 14.6 % Platelet Count 347 10 3/cmm MPV 9.1 fL Neutrophils 7.74 10 3/uL Lymphocytes 1.9 10 3/uL Monocytes 1.3 10 3/uL Eosinophils 0.0 10 3/uL Basophils 0.1 10 3/uL Neutrophil % 66.8 % Lymphocyte % 16.5 % Monocyte % 11.0 % Eosinophil % 0.3 % Basophils % 1.2 % NRBC % 0 % Test performed on May 10, 2020 07:20 LDH (Total) 321 U/L Impression: 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 There is loss of fat plane between posterior left hepatic lobe and invasion cannot be excluded. No evidence of lavelle or additional extranodal disease. 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 The Oncotype DX score is 16, corresponding to about 10% risk of 10 year recurrence after completion of hormonal therapy. She completed adjuvant radiation on 08/02/14. She is a candidate hormonal therapy with aromatase inhibitors for 5 years, Arimidex at 1 mg daily was recommended. The side effects of the treatment include worsening arthralgias and accelerated bone density loss amongst others. Arimidex therapy began in August of 2014, thus far complicated with significant debilitating headaches and hot flashes. Treatment was changed to Femara, headaches resolved. Hot flashes resolved with Effexor. She is doing well. She had a hip replacement in 2017. She remains on Femara and Effexor. Mrs Nye presents today with concerns of persistent left breast pain for at least 2 weeks. Her CA 27-29 was mildly elevated at her December 2017 visit .Bilateral mammogram done on 04/21/2018 showed BI-RADS 2 benign Plan: 1. Proceed with cycle 3 R-CHOP. 2. Continue current antiemetics and Neulasta support. This is working well for her. 3. Labs from 06/21/2020 were reviewed in detail and discussed with Ms. Nye and a copy was given to her. WBC 28.6 (Neupogen on 06/17-06/19/2020-Neulasta was not given with cycle 2), hemoglobin 11.0, platelets 439,000 ANC was 19,200 potassium 3.6, random glucose 173 creatinine 0.9 LFTs are normal. Alk Phos is elevated at 128 presumably due to Neupogen injections on 06/17-06/19/2020. 4. I have asked that she be set up for diagnostic bilateral mammogram with CAD. I also requested ultrasound if indicated for the left axillary nodule-this was requested after cycle 2. 5. Her last DEXA scan was 09/29/2016 which did report osteopenia. 6. She will continue with weekly interim counts and we will plan to see her back in 3 weeks with CBC CMP LDH. She will be due for repeat PET CT as she will have completed 3 cycles of R-CHOP. She will be due for cycle 4 of R-CHOP at that time as well. 7. Ms. Nye was instructed to contact us in the interim should questions or problems arise. Signed By: Michael Garrison-, AOCNP Carl Thompson MD <<Signature on File>>
[2020-07-01 08:47] LABS: Nucleated Red Blood Cells % 0 %
[2020-07-01 08:54] LABS: Basophils # 0.1 10^3/uL (0.0-0.1); Basophils % 6.3 %; Eosinophils % 1.6 %; Hematocrit 29.3 % (37.0-47.0); Hemoglobin 9.3 g/dL (11.5-15.3); Lymphocytes # 0.3 10^3/uL (0.8-4.8); Lymphocytes % 21.4 %; Mean Corpuscular HGB Conc 31.7 g/dL (30.0-36.0); Mean Corpuscular Hemoglobin 28.1 pg (28.0-34.0); Mean Corpuscular Volume 88.5 fL (81-99); Mean Platelet Volume 9.9 fL (7.4-10.4); Monocytes % 3.2 %; Neutrophils % 59.6 %; Platelet Count 181 10^3/cmm (130-400); Red Blood Count 3.31 10^6/uL (4.1-5.3); Red Cell Distribution Width 15.7 % (12.1-15.1); White Blood Count 1.3 10^3/uL (4.0-10.0)
[2020-07-01 09:03] LABS: Alanine Aminotransferase 8 U/L (0-33); Albumin Level 3.4 g/dL (3.5-5.2); Alkaline Phosphatase 63 IU/L (35-105); Anion Gap 12.1 (5-19); Aspartate Amino Transferase 14 U/L (0-32); Blood Urea Nitrogen 12 mg/dL (8-23); Calcium 9.3 mg/dL (8.5-10.5); Carbon Dioxide 26 mmol/L (22-29); Chloride 102 mmol/L (98-107); Globulin 2.8 g/dL (1.3-4.6); Glucose 151 mg/dL (65-115); Lactate Dehydrogenase 210 U/L (135-214); Osmolality Calculated 281 mOsm/kg (285-295); Potassium 4.1 mmol/L (3.5-5.1); Sodium 136 mmol/L (136-145); Total Bilirubin 0.3 mg/dL (0.15-1.2); Total Protein 6.2 g/dL (6.6-8.7)
[2020-07-01 09:47] LABS: Neutrophils # 0.75 10^3/uL (1.8-7.7); Slide Review Slide Review Perform
--- NOTE | 2020-07-01 10:54 | MM_ITS ---
WS: [id number] DIAGNOSTIC BILATERAL DIGITAL MAMMOGRAM WITH CAD HISTORY: HX LT BREAST CA COMPARISON: 02/13/2019, 04/21/2018, 02/11/2018 TECHNIQUE: Bilateral craniocaudad, mediolateral oblique, and mediolateral views are submitted. Comput er aided detection utilized. Breast composition: There are scattered areas of fibroglandular density. Postsurgical changes in the lateral LEFT breast at 3:00. There is an area of distortion posteriorly which is very similar in appe arance to the most recent study and also 07/22/2015 and 02/07/2016. There are 2 new irregular masses which need further evaluation in the LEFT breast. 9.3 mm mass with s piculated margins near the 11-12 o'clock axis posteriorly. Additional 11 mm mass with central calcifi cation near 2:00 at a middle depth. Both of these areas are new. On the MLO projection there is an ad ditional asymmetry. On the RIGHT MLO projection there is a 9 mm asymmetry with calcifications in the superior posterior b reast for which further evaluation is also recommended. MM/[place] [id number] IMPRESSION: BI-RADS: 0-Incomplete: Need additional imaging evaluation FOLLOW UP: Need Additional Imaging 1. LEFT breast: Spot compression views (CC and MLO). True ML. Ultrasound to fol low if abnormality persists. There are 3 new areas of asymmetry in the superior LEFT breast as described which further imaging is required. 2. RIGHT breast: Spot compression views (CC and MLO). True ML. Ultrasound to fo llow if abnormality persists. New asymmetry in the superior RIGHT breast seen o nly on the MLO projection.
== END 2020-07-01 23:59 | disposition home or self-care (01) ==
LOC: ONCMED 12:45
PROVIDERS: Internal Medicine Hematology & Oncology; PCP Internal Medicine; Visit Provider Nurse Practitioner
DX: Z51.12 Encounter for antineoplastic immunotherapy (principal); C85.19 Unspecified B-cell lymphoma, extranodal and solid organ sites; Z85.3 Personal history of malignant neoplasm of breast; N64.4 Mastodynia; R22.9 Localized swelling, mass and lump, unspecified; D70.1 Agranulocytosis secondary to cancer chemotherapy; T45.1X5A Adverse effect of antineoplastic and immunosuppressive drugs, initial encounter; Z51.81 Encounter for therapeutic drug level monitoring; Z79.899 Other long term (current) drug therapy; M85.80 Other specified disorders of bone density and structure, unspecified site; Z79.811 Long term (current) use of aromatase inhibitors; Z96.649 Presence of unspecified artificial hip joint
CPT/HCPCS: 36591; 77066; 80053; 83615; 85007; 85025; 96367; 96372; 96413; 96415; 96417; 99214; J1100; J1200; J1453; J2469; J2505; J7040; J9000; J9070; J9312; J9370; Q5101

== ENCOUNTER 2020-07-12 12:00 | Outpatient (RCR) | payer MEDICARE, OTHER, SELFPAY ==
[2020-07-09 10:43] LABS: Basophils # 0.1 10^3/uL (0.0-0.1); Basophils % 3.6 %; Eosinophils # 0.1 10^3/uL (0.0-0.8); Eosinophils % 6.5 %; Hematocrit 30.3 % (37.0-47.0); Hemoglobin 9.6 g/dL (11.5-15.3); Lymphocytes # 0.5 10^3/uL (0.8-4.8); Lymphocytes % 35.5 %; Mean Corpuscular HGB Conc 31.7 g/dL (30.0-36.0); Mean Corpuscular Hemoglobin 28.4 pg (28.0-34.0); Mean Corpuscular Volume 89.6 fL (81-99); Mean Platelet Volume 9.3 fL (7.4-10.4); Monocytes # 0.7 10^3/uL (0.2-0.9); Monocytes % 47.8 %; Neutrophils % 5.9 %; Nucleated Red Blood Cells % 0 %; Platelet Count 336 10^3/cmm (130-400); Red Blood Count 3.38 10^6/uL (4.1-5.3); Red Cell Distribution Width 17.4 % (12.1-15.1); White Blood Count 1.4 10^3/uL (4.0-10.0)
[2020-07-09 11:01] LABS: Alanine Aminotransferase 10 U/L (0-33); Albumin Level 3.7 g/dL (3.5-5.2); Alkaline Phosphatase 72 IU/L (35-105); Anion Gap 13.2 (5-19); Aspartate Amino Transferase 14 U/L (0-32); Blood Urea Nitrogen 12 mg/dL (8-23); Carbon Dioxide 26 mmol/L (22-29); Chloride 102 mmol/L (98-107); Globulin 2.8 g/dL (1.3-4.6); Glucose 139 mg/dL (65-115); Osmolality Calculated 282 mOsm/kg (285-295); Potassium 4.2 mmol/L (3.5-5.1); Sodium 137 mmol/L (136-145); Total Bilirubin 0.2 mg/dL (0.15-1.2); Total Protein 6.5 g/dL (6.6-8.7)
[2020-07-09 11:25] LABS: Neutrophils # 0.08 10^3/uL (1.8-7.7); Slide Review Slide Review Perform
--- NOTE | 2020-07-12 12:00 | US_ITS ---
WS: [id number] ADDITIONAL VIEWS BILATERAL MAMMOGRAM HISTORY: Bilateral asymmetries. COMPARISON: 07/01/2020, 02/13/2019 and 07/01/2020 Spot compression views of each breast. RIGHT breast: Persistent asymmetry at 12:00. Vague area of increasing soft tissue near 12:00. There a re adjacent benign calcifications. Does not resolve with additional imaging but seen really only on t he ML view. LEFT breast: Area of postoperative scar and fibrosis LEFT breast at 3:00 is unchanged. New persistent areas of increasing density which is irregular shaped in the upper outer quadrant. 2 new areas in th e upper-outer quadrant appear at 12:00 and the other closer to 2:00. Ultrasound to follow. Bilateral breast ultrasound, limited. RIGHT breast: Ultrasound directed to the 12:00. At 12:00 there are soft tissue masses with calcificat ion and shadowing. The largest area measures 4.1 x 6.2 x 4.6 cm, 4 cm from the nipple. Indeterminate. LEFT breast: Multiple abnormalities are identified by ultrasound. These correspond to the areas of ab normality seen also by mammography. The scar site at 3:00 contains some increased soft tissue but the re is also increased vascularity within the soft tissue near the scar site. Irregularly-shaped and el ongated soft tissue measures at least 3 cm x 0.7 x 1.5 cm. At 12:00, 5 cm from the nipple is a nearly isoechoic mass measuring 1.0 x 0.6 x 0.8 cm. At 2:00, 4 cm from the nipple is a hypoechoic mass which is very superficial measuring 1.2 x 0.7 x 0. 6 cm with mild increased vascularity. At 1:00, 3 cm from the nipple is an additional hypoechoic mass with central calcification measuring 0 .9 x 0.5 x 1.2 cm. US/US breast BI limited* [id number] IMPRESSION: BI-RADS: 4-Suspicious Finding-Biopsy Should Be Considered FOLLOW UP: Biopsy Recommended 1. There are multiple new masses within the LEFT breast and increased soft tis saritha vascularity along the scar site. Biopsy of these new areas by ultrasound sh ould be considered. There are probably 3 if not four areas that need biopsy. Du ring the biopsy the radiologist will determine which of these is suspicious chente ugh for biopsy. Biopsy should be performed along the scar site of the soft tiss ue with increased vascularity and also in depth at 12:00 and 2:00 lesions. 2. Minimal increased soft tissue with calcification at 12:00 RIGHT breast. Rec ommend 6 month mammogram and ultrasound follow-up. Notified Deana Barahona NP at 07/15/2020 12:11 PM. Unable to contact Deana emmanuel at the time of dictation.
== END 2020-07-12 13:00 | disposition home or self-care (01) ==
LOC: ONCMED 12:00
PROVIDERS: PCP Internal Medicine; Visit Provider Nurse Practitioner
DX: N64.89 Other specified disorders of breast (principal); R92.1 Mammographic calcification found on diagnostic imaging of breast; N63.21 Unspecified lump in the left breast, upper outer quadrant; Z51.81 Encounter for therapeutic drug level monitoring; Z79.899 Other long term (current) drug therapy; C85.99 Non-Hodgkin lymphoma, unspecified, extranodal and solid organ sites
CPT/HCPCS: 36591; 76642; 77066; 80053; 85025

== ENCOUNTER 2020-07-14 18:26 | Inpatient (IN) | payer MEDICARE, OTHER, SELFPAY ==
[2020-07-14 19:03] VITALS: BP 184/99; PULSE 104; RESP 16; TEMP 38.1; O2SAT 99
--- NOTE | 2020-07-14 19:14 | XRR_ITS ---
PROCEDURE INFORMATION: Exam: XR Chest, 1 View Exam date and time: 07/14/2020 7:42 PM Age: 75 years old Clinical indication: Dyspnea; Additional info: Altered mental status TECHNIQUE: Imaging protocol: XR of the chest Views: 1 view. COMPARISON: CR XR chest 1V portable [id number] 04/16/2020 10:06 AM FINDINGS: Lungs: Unremarkable. No consolidation. Pleural space: Unremarkable. No pleural effusion. No pneumothorax. Heart/Mediastinum: Unremarkable. No cardiomegaly. Bones/joints: Unremarkable. A right central line is in place extending into the SVC. Comparison to prior examination similar findings is seen XR/XR chest 1V portable [id number] IMPRESSION: No acute findings. Right central line in the SVC
--- NOTE | 2020-07-14 19:14 | CTR_ITS ---
PROCEDURE INFORMATION: Exam: CT Head Without Contrast Exam date and time: 07/14/2020 7:18 PM Age: 75 years old Clinical indication: Injury or trauma; Initial encounter; Laceration; Consciousness not specified; Without residual foreign body; Forehead; Patient HX: HX of lymphoma and breast CA - unwitnessed fall - AMS w lac above L eyebrow; Additional info: Altered mental status TECHNIQUE: Imaging protocol: Computed tomography of the head without contrast. Radiation optimization: All CT scans at this facility use at least one of these dose optimization techniques: automated exposure control; mA and/or kV adjustment per patient size (includes targeted exams where dose is matched to clinical indication); or iterative reconstruction. COMPARISON: CT head wo con* [id number] 02/07/2019 3:20 PM RADIATION DOSE METRICS: Total DLP (mGy-cm): 742.43 FINDINGS: Brain: Moderate diffuse white matter disease likely reflecting chronic microvascular ischemic changes. Ventricles: No ventriculomegaly. Bones/joints: Unremarkable. No acute fracture. Paranasal sinuses: Visualized sinuses are unremarkable. No fluid levels. Mastoid air cells: Visualized mastoid air cells are well aerated. Soft tissues: Unremarkable. CT/CT head wo con* [id number] IMPRESSION: Negative for intracranial hemorrhage mass effect. Radiation Dose CTDIVOL = (mGy): DLP = 742.43 (mGy-cm)
--- NOTE | 2020-07-14 19:16 | ECG_ITS ---
[facility] Test Date: 2020-07-14 Pat Name: Jenna Nye Department: Room: Gender: Female Noise Tester: : 1945 Requested By: Maribel Newsome Order Number: [id number] Vicki MD: Ho Alfredo M.D. Measurements Intervals [place] Rate: 116 P: 47 SD: 205 QRS: 2 QRSD: 78 T: 1 QT: 299 QTc: 417 Interpretive Statements SINUS TACHYCARDIA LOW QRS VOLTAGE IN PRECORDIAL LEADS [QRS DEFLECTION < 1.0 mV IN CHEST LEADS] ABNORMAL RHYTHM ECG Compared to ECG 11/23/2019 03:38:46 Sinus rhythm no longer present Ventricular premature complex(es) no longer present T-wave abnormality no longer present Electronically Signed On 07-15-2020 20:51:51 CDT by Ho Alfredo M.D. [email or web address] Technologiestallahatchie general hospitalMedServead[id number]
[2020-07-14 19:20] VITALS: BP 182/92; PULSE 111; RESP 16; O2SAT 98
--- NOTE | 2020-07-14 19:30 | W.ED.AMS ---
HPI - Altered Mental Status General: Chief Complaint: Altered Mental Status Stated Complaint: big knot on left side of head Time Seen by Provider: 07/14/20 19:14 Source: patient and family Limitations: altered mental status History of Present Illness: HPI narrative: Mrs. Nye is a nice 75-year-old female who comes in with her after she apparently fell outside today. Patient went outside at 3 PM to work in her garden and when she came in she was confused and apparently had injured her head on the left periorbital area. The patient has known stomach cancer and is followed by Dr. Thompson. She had her last chemotherapy treatment approximately 2 weeks ago according to the . She is due to have another chemo treatment tomorrow. The patient's states that she was in her normal state of health all day and was fine without complaint of illness, pain or other issue. He did notice she was confused after she came in from falling. The patient does not remember falling and does not remember what happened outside. When asked she says she has no complaints and does not feel sick. 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 Lumbar stenosis without neurogenic claudication Pain management contract signed Port-A-Cath in place 04/16/20 Spondylolisthesis of cervical region 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 (cerebrum) Hx of stroke in February 07, 2019 Surgical History H/O total hip arthroplasty History of cholecystectomy History of hysterectomy Social History Smoking and tobacco status: never smoked Alcohol intake: never Lives independently: Yes Household members: spouse Marital status: Current occupational status: retired History of recent travel: No Physical Exam Const: COMMON NORMALS: no acute distress, no limitations and alert GENERAL APPEARANCE: cooperative and lethargic ORIENTATION/CONSCIOUSNESS: Yes lethargic HENMT: COMMON NORMALS: normocephalic, external ears normal, EAC's normal and Normal external nose present HEAD & SCALP: normal to inspection, normocephalic and other (Small linear laceration superior lateral to the left eyebrow) FACE & SINUS: normal facial exam and face symmetric NOSE: Normal external nose present and Normal nares present EXTERNAL EAR: Yes external ears normal EXTERNAL AUDITORY CANAL: EAC's normal MOUTH: Normal oral and palatal mucosa present, lip normal and tongue normal Eye: COMMON NORMALS: Equal, round and reactive pupils present and conjunctivae normal GENERAL EYE: appearance normal, both eyes and all related structures ALIGNMENT: Yes alignment normal PERIORBITAL: periorbital findings normal EYELID: eyelids normal CONJUNCTIVA: Yes conjunctivae normal SCLERA: sclerae normal PUPIL: Yes Equal, round and reactive pupils present Neck/C-Spine: COMMON NORMALS: full ROM, no lymphadenopathy, supple, no meningeal signs and no JVD GENERAL: Yes normal visual inspection and Yes trachea midline Chest: COMMONS NORMALS: normal inspection of the chest and normal palpation of entire chest wall Resp: COMMON NORMALS: normal respiratory effort, No retractions, No use of accessory muscles and clear to auscultation bilaterally EFFORT & INSPECTION: Yes able to speak in complete sentences and Yes symmetric chest movement AUSCULTATION: clear to auscultation bilaterally, no crackles, no rales, no rhonchi and no wheezes Cardio: COMMON NORMALS: no JVD, regular rate, regular rhythm, S1 normal heart sound present and S2 normal heart sound present RATE: regular rate RHYTHM: regular rhythm HEART SOUNDS: S1 normal heart sound present, S2 normal heart sound present, no click, no gallops, no murmurs and no rubs GI: COMMON NORMALS: Soft to palpation and No hepatosplenomegaly present PALPATION: Yes Soft to palpation, No Tenderness to palpation present (GI), No Guarding due to palpation present (GI), No Rigid due to palpation, Yes No hepatosplenomegaly present, No Hernia present, No Palpable mass present and No Pulsatile mass present : COMMON NORMALS: Yes no CVA tenderness BLADDER/KIDNEY EXAM: Yes no CVA tenderness EXTERNAL FEMALE EXAM: No Hernia present Back/Pelvis: COMMON NORMALS: no CVA tenderness, thoracic and lumbar spine normal to inspection, no thoracic nor lumbar tenderness and thoraco-lumbar ROM normal Extremity: COMMON NORMALS: normal to inspection, full ROM, capillary refill normal, no joint enlargement, no clubbing, cyanosis or edema and no calf tenderness Neuro: VISHAL COMA SCALE: document GCS findings [place] coma scale eye opening: Spontaneous Vishal coma scale verbal response: Confused [place] coma scale motor response: Obey commands Vishal coma scale total score: 14 COMMON NORMALS: CN's II-XII intact bilaterally, moves all extremities, no focal motor deficits and no sensory deficits noted SENSORIUM/ORIENTATION: Yes alert and Yes lethargic MENINGEAL SIGNS: Yes no meningeal signs SPEECH: speech normal Skin: COMMON NORMALS: no rashes or lesions noted, turgor normal, no jaundice, no petechiae and no mottling GENERAL SKIN EXAM: no rashes or lesions noted and turgor normal Course Vital Signs: Vital signs: Vital Signs Temperature 100.5 F H 07/14/20 19:03 Pulse Rate 104 H 07/15/20 02:03 Respiratory Rate 16 07/15/20 02:03 Blood Pressure 141/85 07/15/20 02:03 Pulse Oximetry 95 07/15/20 02:03 MDM - Altered Mental Status MDM Narrative: Medical decision making narrative: The case was reviewed with Dr. Daniels. She will decide later if the patient is to have an LP or not. The patient has been covered with antibiotics. She denies any headache, neck pain or stiffness but is slightly confused. She is less confused than when she arrived but this time the patient states that she is feeling better. Dr. Daniels will see the patient and add on further testing if she feels necessary later. Lab Data: Attestation: I reviewed the patient's lab results. Labs: Lab Results 07/14/20 07/14/20 07/14/20 Range/Units 19:30 19:30 19:30 WBC 8.0 (4.0-10.0) 10^3/ uL RBC 4.15 (4.1-5.3) 10^6/u L Hgb 11.8 (11.5-15.3) g/dL Hct 37.1 (37.0-47.0) % MCV 89.4 (81-99) fL MCH 28.4 (28.0-34.0) pg MCHC 31.8 (30.0-36.0) g/dL RDW 18.2 H (12.1-15.1) % Plt Count 426 H (130-400) 10^3/c mm MPV 8.7 (7.4-10.4) fL Neut % (Auto) 61.5 % Lymph % (Auto) 12.5 % [place] % (Auto) 22.3 % Eos % (Auto) 0.5 % Baso % (Auto) 2.6 % Neut # (Auto) 4.89 (1.8-7.7) 10^3/u L Lymph # (Auto) 1.0 (0.8-4.8) 10^3/u L [place] # (Auto) 1.8 H (0.2-0.9) 10^3/u L Eos # (Auto) 0.0 (0.0-0.8) 10^3/u L Baso # (Auto) 0.2 H (0.0-0.1) 10^3/u L Nucleated RBC % (a uto) 0 % Nucleated RBCs # 0.0 /100WBC PT 13.90 (12.1-14.9) SECO NDS INR 1.04 (0.8-1.2) Specimen Type Sample Site ABG pH (7.35-7.45) ABG pCO2 (35-45) mmHg ABG pO2 (80.0-100.0) mmH g ABG HCO3 (22-26) mmol/L ABG O2 Saturation ABG Base Excess (-2.0-2.0) mmol/ L Gilbert Test A-a O2 Gradient (5-10) mmHg Hematocrit (37-47) % Hgb O2 Saturation (95-100) % Carboxyhemoglobin (0.4-20.1) %THgb Methemoglobin (0.4-1.5) % Total Hemoglobin (12-16) g/dL Ionized Calcium (1.1-1.4) mmol/L O2 Delivery Device FiO2 % Casino Surveillance Officer ID Sodium 135 L (136-145) mmol/L Potassium 3.9 (3.5-5.1) mmol/L Chloride 98 (98-107) mmol/L Carbon Dioxide 26 (22-29) mmol/L Anion Gap 14.9 (5-19) BUN 10 (8-23) mg/dL Creatinine 0.7 (0.5-0.9) mg/dL GFR Calculation Not Reportable Glucose 145 H (65-115) mg/dL Calculated Osmolal ity 279 L (285-295) mOsm/k g Lactic Acid (0.5-2.2) mmol/L Calcium 9.6 (8.5-10.5) mg/dL Magnesium 1.8 (1.7-2.3) mg/dL Total Bilirubin 0.2 (0.15-1.2) mg/dL AST 18 (0-32) U/L ALT 10 (0-33) U/L Alkaline Phosphata se 85 (35-105) IU/L Creatine Kinase 63 (26-192) U/L Troponin T Baselin e (0-10) ng/L Troponin T 120 Min [place] (0-10) ng/L Delta Troponin T (0-10) ABS# Total Protein 7.6 (6.6-8.7) g/dL Albumin 4.2 (3.5-5.2) g/dL Globulin 3.4 (1.3-4.6) g/dL Lipase 80 H (13-60) U/L Urine Color (Yellow) Urine Appearance (CLEAR) Urine pH (5-7) Ur Specific Gravit y (1.005-1.030) Urine Protein (Negative) Urine Glucose (UA) (Normal) Urine Ketones (Negative) Urine Blood (Negative) Urine Nitrate (Negative) Urine Bilirubin (Negative) Urine Urobilinogen (Negative) mg/dL Ur Leukocyte Aiyana ase (Negative) Urine RBC (0-2) /hpf Urine WBC (0-5) /hpf Ur Squamous Epith Cells (0-5) /hpf Amorphous Sediment Urine Bacteria (NONE) /hpf Ethyl Alcohol < 10 (0-10) mg/dL Serum Ketones Negative (Negative) Influenza Type A A g (Negative) Influenza Type B A g (Negative) SARS-CoV-2 Ag (Rap id) (Negative) 07/14/20 07/14/20 07/14/20 Range/Units 19:30 19:30 20:00 WBC (4.0-10.0) 10^3/ uL RBC (4.1-5.3) 10^6/u L Hgb (11.5-15.3) g/dL Hct (37.0-47.0) % MCV (81-99) fL MCH (28.0-34.0) pg MCHC (30.0-36.0) g/dL RDW (12.1-15.1) % Plt Count (130-400) 10^3/c mm MPV (7.4-10.4) fL Neut % (Auto) % Lymph % (Auto) % [place] % (Auto) % Eos % (Auto) % Baso % (Auto) % Neut # (Auto) (1.8-7.7) 10^3/u L Lymph # (Auto) (0.8-4.8) 10^3/u L [place] # (Auto) (0.2-0.9) 10^3/u L Eos # (Auto) (0.0-0.8) 10^3/u L Baso # (Auto) (0.0-0.1) 10^3/u L Nucleated RBC % (a uto) % Nucleated RBCs # /100WBC PT (12.1-14.9) SECO NDS INR (0.8-1.2) Specimen Type Sample Site ABG pH (7.35-7.45) ABG pCO2 (35-45) mmHg ABG pO2 (80.0-100.0) mmH g ABG HCO3 (22-26) mmol/L ABG O2 Saturation ABG Base Excess (-2.0-2.0) mmol/ L Gilbert Test A-a O2 Gradient (5-10) mmHg Hematocrit (37-47) % Hgb O2 Saturation (95-100) % Carboxyhemoglobin (0.4-20.1) %THgb Methemoglobin (0.4-1.5) % Total Hemoglobin (12-16) g/dL Ionized Calcium (1.1-1.4) mmol/L O2 Delivery Device FiO2 % Casino Surveillance Officer ID Sodium (136-145) mmol/L Potassium (3.5-5.1) mmol/L Chloride (98-107) mmol/L Carbon Dioxide (22-29) mmol/L Anion Gap (5-19) BUN (8-23) mg/dL Creatinine (0.5-0.9) mg/dL GFR Calculation Glucose (65-115) mg/dL Calculated Osmolal ity (285-295) mOsm/k g Lactic Acid 1.6 (0.5-2.2) mmol/L Calcium (8.5-10.5) mg/dL Magnesium (1.7-2.3) mg/dL Total Bilirubin (0.15-1.2) mg/dL AST (0-32) U/L ALT (0-33) U/L Alkaline Phosphata se (35-105) IU/L Creatine Kinase (26-192) U/L Troponin T Baselin e 27 H (0-10) ng/L Troponin T 120 Min [place] (0-10) ng/L Delta Troponin T (0-10) ABS# Total Protein (6.6-8.7) g/dL Albumin (3.5-5.2) g/dL Globulin (1.3-4.6) g/dL Lipase (13-60) U/L Urine Color Yellow (Yellow) Urine Appearance Clear (CLEAR) Urine pH 6.5 (5-7) Ur Specific Gravit y 1.010 (1.005-1.030) Urine Protein Neg (Negative) Urine Glucose (UA) Norm (Normal) Urine Ketones Negative (Negative) Urine Blood Trace H (Negative) Urine Nitrate Negative (Negative) Urine Bilirubin Neg (Negative) Urine Urobilinogen Norm (Negative) mg/dL Ur Leukocyte Aiyana ase Negative (Negative) Urine RBC 5-10 H (0-2) /hpf Urine WBC 0-4 H (0-5) /hpf Ur Squamous Epith Cells 0-4 H (0-5) /hpf Amorphous Sediment Not Reportable Urine Bacteria Trace (NONE) /hpf Ethyl Alcohol (0-10) mg/dL Serum Ketones (Negative) Influenza Type A A g (Negative) Influenza Type B A g (Negative) SARS-CoV-2 Ag (Rap id) (Negative) 07/14/20 07/14/20 07/14/20 Range/Units 20:20 21:30 21:30 WBC (4.0-10.0) 10^3/ uL RBC (4.1-5.3) 10^6/u L Hgb (11.5-15.3) g/dL Hct (37.0-47.0) % MCV (81-99) fL MCH (28.0-34.0) pg MCHC (30.0-36.0) g/dL RDW (12.1-15.1) % Plt Count (130-400) 10^3/c mm MPV (7.4-10.4) fL Neut % (Auto) % Lymph % (Auto) % [place] % (Auto) % Eos % (Auto) % Baso % (Auto) % Neut # (Auto) (1.8-7.7) 10^3/u L Lymph # (Auto) (0.8-4.8) 10^3/u L [place] # (Auto) (0.2-0.9) 10^3/u L Eos # (Auto) (0.0-0.8) 10^3/u L Baso # (Auto) (0.0-0.1) 10^3/u L Nucleated RBC % (a uto) % Nucleated RBCs # /100WBC PT (12.1-14.9) SECO NDS INR (0.8-1.2) Specimen Type Arterial Sample Site Brachial, right ABG pH 7.48 H (7.35-7.45) ABG pCO2 34.3 L (35-45) mmHg ABG pO2 62.9 L (80.0-100.0) mmH g ABG HCO3 25.6 (22-26) mmol/L ABG O2 Saturation 94.8 ABG Base Excess 2.4 H (-2.0-2.0) mmol/ L Gilbert Test Pos A-a O2 Gradient 5.8 (5-10) mmHg Hematocrit 37.0 (37-47) % Hgb O2 Saturation 92.9 L (95-100) % Carboxyhemoglobin 1.5 (0.4-20.1) %THgb Methemoglobin 0.5 (0.4-1.5) % Total Hemoglobin 12.1 (12-16) g/dL Ionized Calcium 1.2 (1.1-1.4) mmol/L O2 Delivery Device None FiO2 21.0 % Casino Surveillance Officer ID [id number] Sodium 137.0 (136-145) mmol/L Potassium 3.8 (3.5-5.1) mmol/L Chloride (98-107) mmol/L Carbon Dioxide (22-29) mmol/L Anion Gap (5-19) BUN (8-23) mg/dL Creatinine (0.5-0.9) mg/dL GFR Calculation Glucose 146.0 H (65-115) mg/dL Calculated Osmolal ity (285-295) mOsm/k g Lactic Acid (0.5-2.2) mmol/L Calcium (8.5-10.5) mg/dL Magnesium (1.7-2.3) mg/dL Total Bilirubin (0.15-1.2) mg/dL AST (0-32) U/L ALT (0-33) U/L Alkaline Phosphata se (35-105) IU/L Creatine Kinase (26-192) U/L Troponin T Baselin e (0-10) ng/L Troponin T 120 Min [place] 29.23 H (0-10) ng/L Delta Troponin T 2.23 (0-10) ABS# Total Protein (6.6-8.7) g/dL Albumin (3.5-5.2) g/dL Globulin (1.3-4.6) g/dL Lipase (13-60) U/L Urine Color (Yellow) Urine Appearance (CLEAR) Urine pH (5-7) Ur Specific Gravit y (1.005-1.030) Urine Protein (Negative) Urine Glucose (UA) (Normal) Urine Ketones (Negative) Urine Blood (Negative) Urine Nitrate (Negative) Urine Bilirubin (Negative) Urine Urobilinogen (Negative) mg/dL Ur Leukocyte Aiyana ase (Negative) Urine RBC (0-2) /hpf Urine WBC (0-5) /hpf Ur Squamous Epith Cells (0-5) /hpf Amorphous Sediment Urine Bacteria (NONE) /hpf Ethyl Alcohol (0-10) mg/dL Serum Ketones (Negative) Influenza Type A A g (Negative) Influenza Type B A g (Negative) SARS-CoV-2 Ag (Rap id) Negative (Negative) 07/14/20 Range/Units 21:30 WBC (4.0-10.0) 10^3/ uL RBC (4.1-5.3) 10^6/u L Hgb (11.5-15.3) g/dL Hct (37.0-47.0) % MCV (81-99) fL MCH (28.0-34.0) pg MCHC (30.0-36.0) g/dL RDW (12.1-15.1) % Plt Count (130-400) 10^3/c mm MPV (7.4-10.4) fL Neut % (Auto) % Lymph % (Auto) % [place] % (Auto) % Eos % (Auto) % Baso % (Auto) % Neut # (Auto) (1.8-7.7) 10^3/u L Lymph # (Auto) (0.8-4.8) 10^3/u L [place] # (Auto) (0.2-0.9) 10^3/u L Eos # (Auto) (0.0-0.8) 10^3/u L Baso # (Auto) (0.0-0.1) 10^3/u L Nucleated RBC % (a uto) % Nucleated RBCs # /100WBC PT (12.1-14.9) SECO NDS INR (0.8-1.2) Specimen Type Sample Site ABG pH (7.35-7.45) ABG pCO2 (35-45) mmHg ABG pO2 (80.0-100.0) mmH g ABG HCO3 (22-26) mmol/L ABG O2 Saturation ABG Base Excess (-2.0-2.0) mmol/ L Gilbert Test A-a O2 Gradient (5-10) mmHg Hematocrit (37-47) % Hgb O2 Saturation (95-100) % Carboxyhemoglobin (0.4-20.1) %THgb Methemoglobin (0.4-1.5) % Total Hemoglobin (12-16) g/dL Ionized Calcium (1.1-1.4) mmol/L O2 Delivery Device FiO2 % Casino Surveillance Officer ID Sodium (136-145) mmol/L Potassium (3.5-5.1) mmol/L Chloride (98-107) mmol/L Carbon Dioxide (22-29) mmol/L Anion Gap (5-19) BUN (8-23) mg/dL Creatinine (0.5-0.9) mg/dL GFR Calculation Glucose (65-115) mg/dL Calculated Osmolal ity (285-295) mOsm/k g Lactic Acid (0.5-2.2) mmol/L Calcium (8.5-10.5) mg/dL Magnesium (1.7-2.3) mg/dL Total Bilirubin (0.15-1.2) mg/dL AST (0-32) U/L ALT (0-33) U/L Alkaline Phosphata se (35-105) IU/L Creatine Kinase (26-192) U/L Troponin T Baselin e (0-10) ng/L Troponin T 120 Min [place] (0-10) ng/L Delta Troponin T (0-10) ABS# Total Protein (6.6-8.7) g/dL Albumin (3.5-5.2) g/dL Globulin (1.3-4.6) g/dL Lipase (13-60) U/L Urine Color (Yellow) Urine Appearance (CLEAR) Urine pH (5-7) Ur Specific Gravit y (1.005-1.030) Urine Protein (Negative) Urine Glucose (UA) (Normal) Urine Ketones (Negative) Urine Blood (Negative) Urine Nitrate (Negative) Urine Bilirubin (Negative) Urine Urobilinogen (Negative) mg/dL Ur Leukocyte Aiyana ase (Negative) Urine RBC (0-2) /hpf Urine WBC (0-5) /hpf Ur Squamous Epith Cells (0-5) /hpf Amorphous Sediment Urine Bacteria (NONE) /hpf Ethyl Alcohol (0-10) mg/dL Serum Ketones (Negative) Influenza Type A A g Negative (Negative) Influenza Type B A g Negative (Negative) SARS-CoV-2 Ag (Rap id) (Negative) Imaging Data^: CXR: Attestation: I personally reviewed and interpreted this imaging study as follows: My impression: No acute cardiopulmonary findings. CT Head: Radiologist's impression: [place] [address] CT Scan Report Signed Patient: Jenna Nye V Unit #: [id number] : 1945 Age/Sex: 75 / F ADM Date: 07/14/20 Loc: ER Room/Bed: Attending Dr: Ordering Provider/Ordering MD: Maribel Odom DO Date of Service: 07/14/20 Procedure(s): CT head wo con* [id number] Accession Number(s): [id number] Report Number: [id number] PROCEDURE INFORMATION: Exam: CT Head Without Contrast Exam date and time: 07/14/2020 7:18 PM Age: 75 years old Clinical indication: Injury or trauma; Initial encounter; Laceration; Consciousness not specified; Without residual foreign body; Forehead; Patient HX: HX of lymphoma and breast CA - unwitnessed fall - AMS w lac above L eyebrow; Additional info: Altered mental status TECHNIQUE: Imaging protocol: Computed tomography of the head without contrast. Radiation optimization: All CT scans at this facility use at least one of these dose optimization techniques: automated exposure control; mA and/or kV adjustment per patient size (includes targeted exams where dose is matched to clinical indication); or iterative reconstruction. COMPARISON: CT head wo con* [id number] 02/07/2019 3:20 PM RADIATION DOSE METRICS: Total DLP (mGy-cm): 742.43 FINDINGS: Brain: Moderate diffuse white matter disease likely reflecting chronic microvascular ischemic changes. Ventricles: No ventriculomegaly. Bones/joints: Unremarkable. No acute fracture. Paranasal sinuses: Visualized sinuses are unremarkable. No fluid levels. Mastoid air cells: Visualized mastoid air cells are well aerated. Soft tissues: Unremarkable. CT/CT head wo con* [id number] IMPRESSION: Negative for intracranial hemorrhage mass effect. Radiation Dose CTDIVOL = (mGy): DLP = 742.43 (mGy-cm) Dictated By: Holden Jean-Baptiste MD Signed By: Holden Jean-Baptiste MD Signed Date/Time: 07/14/202122 DD/ 20 CT Cervical Spine: Radiologist's impression: [address] [address] [address] Scan Report Signed Patient: Jenna Nye V Unit #: [id number] : 1945 Age/Sex: 75 / F ADM Date: 07/14/20 Loc: ER Room/Bed: Attending Dr: Ordering Provider/Ordering MD: Maribel Odom DO Date of Service: 07/14/20 Procedure(s): CT cervical spin wo con* [id number] Accession Number(s): [id number] Report Number: [id number] PROCEDURE INFORMATION: Exam: CT Cervical Spine Without Contrast Exam date and time: 07/14/2020 7:37 PM Age: 75 years old Clinical indication: Injury or trauma; Initial encounter; Blunt trauma; Patient HX: HX of lymphoma and breast CA - unwitnessed fall - AMS w lac above L eyebrow; Additional info: Fall/injury TECHNIQUE: Imaging protocol: Computed tomography images of the cervical spine without contrast. Radiation optimization: All CT scans at this facility use at least one of these dose optimization techniques: automated exposure control; mA and/or kV adjustment per patient size (includes targeted exams where dose is matched to clinical indication); or iterative reconstruction. COMPARISON: MRI Cervical Spine w/o* [id number] 09/12/2019 10:55 AM RADIATION DOSE METRICS: Total DLP (mGy-cm): 464.73 FINDINGS: Vertebrae: Degenerative changes throughout the spine. C2-C3: No significant disc protrusion. No severe spinal canal stenosis. No significant neural foraminal narrowing. C3-C4: No significant disc protrusion. No severe spinal canal stenosis. No significant neural foraminal narrowing. C4-C5: No significant disc protrusion. No severe spinal canal stenosis. No significant neural foraminal narrowing. C5-C6: No significant disc protrusion. No severe spinal canal stenosis. No significant neural foraminal narrowing. C6-C7: No significant disc protrusion. No severe spinal canal stenosis. No significant neural foraminal narrowing. C7-T1: No significant disc protrusion. No severe spinal canal stenosis. No significant neural foraminal narrowing. Soft tissues: Unremarkable. Lungs: Lung apices are normal. CT/CT cervical spin wo con* [id number] IMPRESSION: Negative for fracture or dislocation Radiation Dose CTDIVOL = (mGy): DLP = 464.73 (mGy-cm) Dictated By: Holden Jean-Baptiste MD Signed By: Holden Jean-Baptiste MD Signed Date/Time: 07/14/202123 DD/ 21 EKG Data^: EKG 1: Attestation: I personally reviewed and interpreted this EKG as follows: EKG interpretation date: 07/14/20 EKG interpretation time: 20:26 Interpretation: Normal sinus rhythm at 160 beats a minute, normal axis, no blocks, normal intervals, low voltages, nonspecific ST-T wave changes. EKG 2: Attestation: I personally reviewed and interpreted this EKG as follows: EKG interpretation date: 07/14/20 EKG interpretation time: 21:46 Interpretation: Sinus tachycardia at 112 beats a minute, normal axis, first-degree AV block, normal QRS and QTc intervals, nonspecific ST and T wave changes. Discharge Plan Discharge Patient Disposition: Placed in Observation Admit Provider: Loretta Lowery Clinical Impression: Altered mental status Qualifiers: Altered mental status type: unspecified Qualified Code(s): R41.82 - Altered mental status, unspecified Fever Qualifiers: Fever type: unspecified Qualified Code(s): R50.9 - Fever, unspecified Discharge Date/Time: 07/15/20 02:04 Coding Level of Care Code ED Marble Installer for g Fwd Exam Comprehensive
[2020-07-14 19:35] LABS: Basophils # 0.2 10^3/uL (0.0-0.1); Basophils % 2.6 %; Eosinophils % 0.5 %; Hematocrit 37.1 % (37.0-47.0); Hemoglobin 11.8 g/dL (11.5-15.3); Lymphocytes % 12.5 %; Mean Corpuscular HGB Conc 31.8 g/dL (30.0-36.0); Mean Corpuscular Hemoglobin 28.4 pg (28.0-34.0); Mean Corpuscular Volume 89.4 fL (81-99); Mean Platelet Volume 8.7 fL (7.4-10.4); Monocytes # 1.8 10^3/uL (0.2-0.9); Monocytes % 22.3 %; Neutrophils # 4.89 10^3/uL (1.8-7.7); Neutrophils % 61.5 %; Nucleated Red Blood Cells % 0 %; Platelet Count 426 10^3/cmm (130-400); Red Blood Count 4.15 10^6/uL (4.1-5.3); Red Cell Distribution Width 18.2 % (12.1-15.1)
[2020-07-14 19:54] LABS: INR 1.04 (0.8-1.2)
[2020-07-14 20:00] LABS: Alanine Aminotransferase 10 U/L (0-33); Albumin Level 4.2 g/dL (3.5-5.2); Alkaline Phosphatase 85 IU/L (35-105); Anion Gap 14.9 (5-19); Aspartate Amino Transferase 18 U/L (0-32); Blood Urea Nitrogen 10 mg/dL (8-23); Calcium 9.6 mg/dL (8.5-10.5); Carbon Dioxide 26 mmol/L (22-29); Chloride 98 mmol/L (98-107); Creatine Phosphokinase 63 U/L (26-192); Globulin 3.4 g/dL (1.3-4.6); Glucose 145 mg/dL (65-115); Lipase 80 U/L (13-60); Magnesium 1.8 mg/dL (1.7-2.3); Osmolality Calculated 279 mOsm/kg (285-295); Potassium 3.9 mmol/L (3.5-5.1); Sodium 135 mmol/L (136-145); Total Bilirubin 0.2 mg/dL (0.15-1.2); Total Protein 7.6 g/dL (6.6-8.7)
[2020-07-14 20:01] LABS: Alcohol Level < 10 mg/dL (0-10); Lactic Sepsis W/Reflex 1.6 mmol/L (0.5-2.2)
[2020-07-14 20:06] LABS: Troponin(5th) Baseline 27 ng/L (0-10)
[2020-07-14 20:11] LABS: Ketone (Acetest) Serum Negative (Negative)
[2020-07-14 20:29] LABS: ABG PCO2 34.3 mmHg (35-45); ABG PH Result 7.48 (7.35-7.45); Alveolar-Arterial Oxygen Gradi 5.8 mmHg (5-10); Base Excess ABG 2.4 mmol/L (-2.0-2.0); Blood Gas Allen Test Pos; Blood Gas Sample Site Brachial, right; Blood Gas Sample Type Arterial; Carboxyhemoglobin 1.5 %THgb (0.4-20.1); HCO3 ABG 25.6 mmol/L (22-26); HGB O2 Sat 92.9 % (95-100); Ionized Calcium Level - ABG 1.2 mmol/L (1.1-1.4); Methemoglobin 0.5 % (0.4-1.5); Oxygen Saturation ABG 94.8; PO2 ABG 62.9 mmHg (80.0-100.0); Potassium Level - ABG 3.8 mmol/L (3.5-5.0); Total Hemoglobin 12.1 g/dL (12-16)
[2020-07-14] MEDS: piperacillin-tazobactam 3.375 GM in sodium chloride 0.9% (plus) 50 ML IV (20:45)
[2020-07-14] MEDS: sodium chloride 0.9% 1,000 ML 100 ML IV (20:47)
--- NOTE | 2020-07-14 21:16 | ECG_ITS ---
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 Measurements Intervals [place] Rate: 112 P: 48 NH: 213 QRS: -2 QRSD: 95 T: 25 QT: 375 QTc: 514 Interpretive Statements SINUS TACHYCARDIA WITH FIRST DEGREE AV BLOCK NONSPECIFIC T-WAVE ABNORMALITY Compared to ECG 07/14/2020 20:25:41 First degree AV block now present T-wave abnormality now present Electronically Signed On 07-15-2020 20:52:38 CDT by Ho Alfredo M.D. [id number]
[2020-07-14 21:18] VITALS: BP 127/70; PULSE 108; RESP 20; O2SAT 95
[2020-07-14 21:32] LABS: Add Urine Microscopic? YES; Bilirubin Urine Neg (Negative); Blood Urine Trace (Negative); Glucose Urine UA Norm (Normal); Ketones Urine Negative (Negative); Leukocyte Esterase Urine Negative (Negative); Nitrate Urine Negative (Negative); Protein Urine Neg (Negative); Urine Appearance Clear (CLEAR); Urine Color Yellow (Yellow); Urobilinogen Urine Norm (Negative); pH Urine 6.5 (5-7)
[2020-07-14 21:35] LABS: Add Urine Culture? No; Bacteria Urine TRACE /hpf; Squamous Epithelial Cell Urine 0-4 /hpf (0-5); WBC Urine 0-4 /hpf (0-5)
[2020-07-14] MEDS: vancomycin 1,000 MG in sodium chloride 0.9% 250 ML 250 MG IV (21:35)
[2020-07-14 22:13] LABS: SARS Covid-2 Antigen Negative (Negative); Troponin 5 2HR 29.23 ng/L (0-10); Troponin 5 2HR Delta 2.23 ABS# (0-10)
[2020-07-14 22:28] LABS: Influenza A by IFA Negative (Negative); Influenza B by IFA Negative (Negative)
[2020-07-14 23:00] VITALS: BP 168/91; PULSE 106; RESP 16; O2SAT 95
[2020-07-15] VITALS (11 sets, daily range): BP systolic 135–178; BP diastolic 81–91; PULSE 74–122; RESP 16–19; TEMP 36.2–37.6; O2SAT 95–100
--- NOTE | 2020-07-15 01:16 | ECG_ITS ---
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 Measurements Intervals [place] Rate: 106 P: -11 WI: 183 QRS: 3 QRSD: 88 T: -3 QT: 336 QTc: 447 Interpretive Statements SINUS TACHYCARDIA LOW QRS VOLTAGE IN PRECORDIAL LEADS [QRS DEFLECTION < 1.0 mV IN CHEST LEADS] ABNORMAL RHYTHM ECG Compared to ECG 07/14/2020 21:41:41 Low QRS voltage now present First degree AV block no longer present T-wave abnormality no longer present Electronically Signed On 07-15-2020 20:52:46 CDT by Ho Alfredo M.D. [id number]
[2020-07-15 02:07] LABS: Troponin 5 6HR 22.29 ng/L (0-10)
[2020-07-15 02:20] LABS: Troponin 5 6HR Delta -4.71 ng/L (0-12)
[2020-07-15 07:48] LABS: Basophils # 0.2 10^3/uL (0.0-0.1); Basophils % 3.1 %; Eosinophils # 0.1 10^3/uL (0.0-0.8); Eosinophils % 0.7 %; Hematocrit 34.1 % (37.0-47.0); Lymphocytes # 0.8 10^3/uL (0.8-4.8); Lymphocytes % 11.4 %; Mean Corpuscular HGB Conc 32.3 g/dL (30.0-36.0); Mean Corpuscular Hemoglobin 28.7 pg (28.0-34.0); Mean Platelet Volume 8.9 fL (7.4-10.4); Monocytes # 1.8 10^3/uL (0.2-0.9); Monocytes % 25.3 %; Neutrophils # 4.24 10^3/uL (1.8-7.7); Neutrophils % 59.1 %; Nucleated Red Blood Cells % 0 %; Platelet Count 356 10^3/cmm (130-400); Red Blood Count 3.83 10^6/uL (4.1-5.3); White Blood Count 7.2 10^3/uL (4.0-10.0)
[2020-07-15 07:56] LABS: Anion Gap 12.7 (5-19); Blood Urea Nitrogen 7 mg/dL (8-23); Calcium 8.6 mg/dL (8.5-10.5); Carbon Dioxide 25 mmol/L (22-29); Chloride 103 mmol/L (98-107); Glucose 144 mg/dL (65-115); Osmolality Calculated 282 mOsm/kg (285-295); Potassium 3.7 mmol/L (3.5-5.1); Sodium 137 mmol/L (136-145)
--- NOTE | 2020-07-15 09:40 | PM.HP ---
Providers/Chief Complaint Admitting Physician: Loretta Lowery MD Primary Care Provider: Mahamed Cuba MD Chief Complaint: big knot on left side of head History of Present Illness Jenna Nye is a 75 year old female who presented to the emergency room with a chief complaint of alteration in mental status. She herself does not really remember the details of what happened today. Her reported that she had evidently fallen down outside. She went to work in her garden in the afternoon around 3:00. When she came back and she had a knot on her left lateral frontal area as well as some abrasions and bruising. She did not recall falling at all or what might of happened. When she came in she was evidently confused eventually leading to the emergency room visit. Patient denies any numbness or tingling in her extremities. She denies any focal weakness. She denies any loss of bowel or bladder function today though does have some incontinence at times. She is currently undergoing chemotherapy with last course of treatment about 2 weeks ago. She follows with Dr. 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 She is receiving R-CHOP and it looks like she was due to start her fourth cycle at that time. 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 With her combination of symptoms including an obvious fall, confusion and amnesia for what happened, unclear story and comorbid conditions she is being admitted for at least overnight observation. Review of Systems Const: Reports: fatigue; Denies: fever(s) (Patient herself denied fevers but had a temperature of 100.5 in the emergency room), chills, change in appetite or change in weight Eyes: Denies: change in vision ENMT: Denies: throat pain, oral sores, dry mouth or nasal congestion Card: Denies: chest pain, palpitations or edema Resp: Denies: dyspnea, productive cough or non-productive cough GI: Reports: abdominal pain, nausea and early satiety; Denies: vomiting, diarrhea or constipation Skin/Breast: Reports: sores and change in hair (Alopecia from chemo); Denies: rash or pruritus Neuro: Reports: headache(s), dizziness (Sometimes a little bit) and confusion; Denies: numbness in extremities, weakness in extremities, sensory changes, difficulty walking, frequent falls (Although apparently fell today) or Slurred speech present Psych: Denies: anxiety or depression Hector/Lymph: Reports: other (Currently with ecchymoses around her left eye); Denies: easy bruising or easy bleeding Medications/Allergies Home Medications Medication Instructions Recorded Confirmed Last Taken Type aspirin 81 mg tablet,delayed 81 mg PO DAILY 12/26/19 04/26/20 04/02/20 History release calcium carbonate 500 mg calcium 500 mg PO DAILY 12/26/19 04/26/20 04/15/20 History (1,250 mg) tablet letrozole 2.5 mg tablet 2.5 mg PO DAILY 12/26/19 04/26/20 04/15/20 History multivitamin,km-rtxz-nlcelenc 1 tab PO DAILY 12/26/19 04/26/20 04/15/20 History brimonidine 0.1 % eye drops 1 drop OPHTHALMIC (EYE) Q8H 12/28/19 04/26/20 04/16/20 History timolol 0.5 % eye drops 1 drop OPHTHALMIC (EYE) BID 12/28/19 04/26/20 04/16/20 History vit C 250 mg-vit E 200 unit-zinc 1 cap PO DAILY 12/28/19 04/26/20 04/15/20 History ox 12.5 ui-mskbsv-efurbv-zeax capsule pantoprazole 40 mg tablet,delayed 40 mg PO DAILY #90 tab 01/09/20 04/26/20 04/15/20 Rx release hydrochlorothiazide 12.5 mg capsule 12.5 mg PO DAILY #90 cap 01/30/20 04/26/20 04/16/20 Rx meloxicam 15 mg tablet 15 mg PO DAILY #30 tab 04/01/20 04/26/20 04/15/20 Rx hydrocodone-acetaminophen [[place]] 1 tab PO Q6H PRN #15 tab NS 04/16/20 04/26/20 Unknown Rx simvastatin 20 mg tablet 20 mg PO DAILY #90 tab 05/16/20 Unknown Rx nifedipine 30 mg tablet,extended 30 mg PO DAILY #30 tab 06/28/20 Unknown Rx release insulin regular human [Novolin R See Rx Instructions .ROUTE .COMPLEX 07/15/20 07/15/20 Unknown History Flexpen] lorazepam [Ativan] 1 mg PO DAILY PRN 07/15/20 07/15/20 Unknown History Allergies Allergy/AdvReac Type Severity Reaction Status Date / Time adhesive tape Allergy ALGY-Rash Verified 04/26/20 08:21 PFSH Acute PFSH: Medical History Cervical disc disorder with myelopathy of mid-cervical region Chronic bronchitis HX: breast cancer ER NE negative, 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 status post radiation therapy and hormonal therapy, currently on Femara Hyperlipidemia 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 disc disorder 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 region emt intermediate (current) use of opiate analgesic Lumbar stenosis without neurogenic claudication Pain management contract signed Port-A-Cath in place 04/16/20 Spondylolisthesis of cervical region 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 (cerebrum) Hx of stroke in February 07, 2019 Surgical History H/O total hip arthroplasty History of cholecystectomy History of hysterectomy Social History Smoking and tobacco status: never smoked Alcohol intake: never Lives independently: Yes Household members: spouse Marital status: Current occupational status: retired History of recent travel: No Vitals/I&O/Wt Last Vital Signs Temp 97.6 F 07/15/20 08:35 Pulse 84 07/15/20 08:35 Resp 16 07/15/20 08:35 BP 154/85 07/15/20 08:35 Pulse Ox 97 07/15/20 08:35 07/14/20 07/15/20 07/15/20 22:59 06:59 14:59 Output Total 1700 / 1700 Balance -1700 / -1700 Weight last 48 hrs Weight 81.647 kg Physical Exam Const: OTHER: Alert, oriented to person and place but not entirely to situation or time, cooperative HENMT: OTHER: Normocephalic atraumatic, dry mucous membranes, no tongue lesions noted Eye: OTHER: Pupils equally round and reactive to light, extraocular movements are intact Neck/C-Spine: OTHER: Supple Lymph: LYMPHATIC: other (No gross lymphadenopathy noted in neck or axilla) Chest: OTHER: Port-A-Cath intact in the right chest Resp: OTHER: Clear to auscultation bilaterally no rales rhonchi or wheezes noted, no accessory muscle use noted Cardio: OTHER: Regular rate and rhythm, no murmurs gallops or rubs. Pulses 2+ and equal at both feet. GI: OTHER: Abdomen soft, mild epigastric tenderness, no rebound or guarding, nondistended, positive bowel sounds : OTHER: Deferred Extremity: NARRATIVE EXTREMITY EXAM: No pitting edema, no cyanosis or clubbing Neuro: OTHER: Face symmetric, speech clear, answers to questions are generally appropriate, handgrip equal, strength equal both feet Psych: OTHER: Patient states that the year is 2003 but knows that that is wrong. She knows that she is at the hospital but was not sure exactly why she was here. She knows who she is and knows that she has gastric cancer. She does not remember falling yesterday or really much in the way of any details from yesterday. Patient is calm. Skin: NARRATIVE SKIN EXAM: Patient with Urinary Catheter Management^: Gar: Cath Placed During This Visit: yes Reason for Continuing Indwelling Catheter: Accurate Measurement of Urinary Output in Critically Ill Patients Urinary Catheter Date of Insertion: 07/14/20 Urinary Catheter Time of Insertion: 20:16 Data : 07/15/20 07:30 07/15/20 07:30 Micro: Microbiology 07/14/20 20:15 Blood Culture - Preliminary Blood SPECIMEN COLLECTED 07/14/20 19:30 Blood Culture - Preliminary Blood SPECIMEN COLLECTED A&P Assessment and plan (1) Fall at home: Out in her garden, details are unknown because she cannot recall them Status: Acute Qualifiers: Encounter type: initial encounter Qualified Code(s): W19.XXXA - Unspecified fall, initial encounter; Y92.009 - Unspecified place in unspecified non-institutional (private) residence as the place of occurrence of the external cause (2) Closed head injury: With bruising, 2 small lacerations to the left periorbital area. CT of the head did not show any acute abnormalities though there was moderate diffuse microvascular ischemic changes. CT of the cervical spine was also negative. Status: Acute Qualifiers: Encounter type: initial encounter Qualified Code(s): S09.90XA - Unspecified injury of head, initial encounter (3) Altered mental status: Which seems to be presenting primarily as some amnesia for the specific events out in the garden that led to her ultimately being admitted. This could be secondary to closed head injury, cerebrovascular event, early infection, medications. Leaning more towards the former than the latter 2 presently Status: Acute Qualifiers: Altered mental status type: unspecified Qualified Code(s): R41.82 - Altered mental status, unspecified (4) Fever: Has not recurred since she was in the emergency room has not recurred since she was in the emergency room. She received vancomycin and Zosyn in the emergency room and Rocephin was also ordered. Chest x-ray does not show any acute foci of infection, analysis was really unremarkable, no gross abnormalities noted on skin or musculoskeletal exam and denies respiratory symptoms presently. Rapid COVID's testing as well as influenza screening were negative in the emergency room. Neck is supple. She could have had an acute neurovascular or even vascular event as a potential source of a low-grade fever but completed work-up thus far does not point to those specifically. Status: Acute Qualifiers: Fever type: unspecified Qualified Code(s): R50.9 - Fever, unspecified (5) Gastric lymphoma: Currently on R-CHOP and was due to start her fourth cycle on July 15 though obviously it is being delayed presently Status: Chronic Additional A&P Information Home medication list demonstrating insulin therapy, has had some elevated blood sugars, unclear if has type 2 diabetes mellitus or if this is secondary to steroids for example that she is been receiving with her chemotherapy regimens Mild elevation in lipase, may be related to gastric lymphoma Mild normocytic anemia Recently recovered from neutropenia, chemotherapy-induced Observation admission for now Serial neuro exams Check carotid ultrasound Telemetry monitoring for any arrhythmias Patient had an echocardiogram done in late May showing an ejection fraction 62% Check lipid panel Check A1c Chronically on aspirin which I will continue along with statin therapy Hold Femara currently until we can ensure no evidence of a thrombotic event Hold further antibiotics for the time being Monitor for any recurrence of fevers Follow-up pending blood cultures Sliding scale insulin currently Continue home nifedipine Continue Protonix Currently with observation status low risk for VTE but should she transition to inpatient status will need to address accordingly PT/OT/speech evaluations Supportive care otherwise Full code I did not get an opportunity personally talked to patient's this evening that the ED doctor did. Will need to clarify her baseline though review of available records does not appear to indicate the difficulty recalling things apparent today. Attestations Medical Necessity Statement*: Currently anticipated stay less than 2 midnights and patient had a fall today with an apparent closed head injury and now with alteration of mental status manifesting primarily as inability to recall what happened today. This could simply be a concussion from the injury that she has though differential is broad are as indicated above. Watch her overnight with plans as indicated and further course to be determined pending results. 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
--- NOTE | 2020-07-15 11:54 | USCV_ITS ---
Jenna Nye Age: 75 Gender: F : 1945 Exam Date: 07/15/2020 13:25 Ordering Phys: Loretta Lowery MD Technologist: Pool Osman [place] [facility] [place] Risk Factors: Previous Vascular Surgery: Right Brachial BP: / Left Brachial BP: / Right Left Velocity (cm/s) Spectral Plaque Velocity (cm/s) Spectral Plaque Syst/Diast Broadening Syst/Diast Broadening 43.50/ 9.30 Prox CCA 59.80 / 19.10 50.50/ 13.20 Mid CCA 44.70 / 16.40 32.60/ 11.70 Hetro Distal CCA 47.30 / 15.80 Hetro 256.30/53.70 Alfredo Prox ICA 254.80/ 74.60 Alfredo 78.30/ 20.90 Hetro Mid ICA 229.90/ 62.10 Hetro 80.00/ 24.00 Distal ICA 248.60/ 46.60 57.50 ECA 69.00 5.60 ICA/CCA 4.26 Antegrade Vertebral Antegrade 51.30/ 15.80 cm/s 95.20/ 19.50 cm/s Tri Subclavian Tri 58.50 65.10 FINDINGS Comparison: none available. Diffuse bilateral scattered calcified plaque and intimal thickening throughout the common carotid arteries and extending through the bifurcation. Significant elevation of velocity in the ICA's. Antegrade vertebral arteries. CONCLUSIONS Right ICA stenosis 70-99%. Left ICA stenosis 70-99%. Dr. Ernestina Sethi DO (Electronically Signed) Final Date: 15 July 2020 15:06 S
[2020-07-15] MEDS: sodium chloride 0.9% 1,000 ML 100 ML IV (12:04)
[2020-07-15] MEDS: cefTRIAXone 2,000 MG in sodium chloride 0.9% (plus) 50 ML 100 MG IV (12:04)
--- NOTE | 2020-07-15 12:04 | PM.PN ---
Subjective Subjective: Interval history: overnight labs and H&P reviewed. this morning patient is noted to be alert, awake and oriented. She is able to recall that she fell however does not remember the circumstance surroudning this. She is able to ambulate in the room currently. Medications: Reviewed: Yes Vitals/I&O/Wt Last Vital Signs Temp 97.6 F 07/15/20 08:35 Pulse 84 07/15/20 08:35 Resp 16 07/15/20 08:35 BP 154/85 07/15/20 08:35 Pulse Ox 97 07/15/20 08:35 07/14/20 07/15/20 07/15/20 22:59 06:59 14:59 Output Total 1700 / 1700 Balance -1700 / -1700 Weight last 48 hrs Weight 81.647 kg Physical Exam Narrative: EXAM NARRATIVE: GEN: Awake, alert and oriented, no acute distress CVS: S1S2 N RS: CTA B/L Abd: Soft, nt/nd , bs+ ORGANIZATION DEVELOPMENT CONSULTANT: no focal neuro deficits Urinary Catheter Management^: Gar: Cath Placed During This Visit: yes Reason for Continuing Indwelling Catheter: Accurate Measurement of Urinary Output in Critically Ill Patients Urinary Catheter Date of Insertion: 07/14/20 Urinary Catheter Time of Insertion: 20:16 Data : 07/15/20 07:30 07/15/20 07:30 Micro: Microbiology 07/14/20 20:15 Blood Culture - Preliminary Blood SPECIMEN COLLECTED 07/14/20 19:30 Blood Culture - Preliminary Blood SPECIMEN COLLECTED A&P Assessment and plan (1) Fall at home: Status: Acute Qualifiers: Encounter type: initial encounter Qualified Code(s): W19.XXXA - Unspecified fall, initial encounter; Y92.009 - Unspecified place in unspecified non-institutional (private) residence as the place of occurrence of the external cause (2) Closed head injury: Status: Acute Qualifiers: Encounter type: initial encounter Qualified Code(s): S09.90XA - Unspecified injury of head, initial encounter (3) Altered mental status: Which seems to be presenting primarily as some amnesia for the specific events out in the garden that led to her ultimately being admitted. This could be secondary to closed head injury, cerebrovascular event, early infection, medications. Leaning more towards the former than the latter 2 presently Status: Acute Qualifiers: Altered mental status type: unspecified Qualified Code(s): R41.82 - Altered mental status, unspecified (4) Fever: Has not recurred since she was in the emergency room has not recurred since she was in the emergency room. She received vancomycin and Zosyn in the emergency room and Rocephin was also ordered. Chest x-ray does not show any acute foci of infection, analysis was really unremarkable, no gross abnormalities noted on skin or musculoskeletal exam and denies respiratory symptoms presently. Rapid COVID's testing as well as influenza screening were negative in the emergency room. Neck is supple. She could have had an acute neurovascular or even vascular event as a potential source of a low-grade fever but completed work-up thus far does not point to those specifically. Status: Acute Qualifiers: Fever type: unspecified Qualified Code(s): R50.9 - Fever, unspecified (5) Gastric lymphoma: Currently on R-CHOP and was due to start her fourth cycle on July 15 though obviously it is being delayed presently Status: Chronic Additional A&P Information # H/o fall at home in unclear circumstances followed by AMS at home as noticed by her In the ER upon initial arrival was noted to be disoriented, however on my assessment now she is alert and awake, though moore snot recall circumstances of her fall Differentials include syncope vs TIA. No evidence of acute intracranial events on CT head. Could have had a concussion , will need close neuro observation to see if mental status improvement is sustained vs a short lucid interval No acute events on telemetry carotid duplex pending EF estimated on stress test from 2018 within range , check 2D echo continue ASA and statin continue ceftriaxone empirically for possible UTI low suspicion for meningitis given quick recovery of mental status Sliding scale insulin currently Continue home nifedipine Continue Protonix PT/OT/speech evaluations Attestations Medical Necessity Statement*: close neuro monitoring for likely concussion, ongoing fever that needs further evaluation Coding Level of Care Code Acute Children'S Author for Chg Fwd Diagnoses Fall at home W19.XXXA; Y92.009 Encounter type: initial encounter Closed head injury S09.90XA Encounter type: initial encounter Altered mental status R41.82 Altered mental status type: unspecified Fever R50.9 Fever type: unspecified Gastric lymphoma C85.99
--- NOTE | 2020-07-15 12:06 | USCV_ITS ---
Jenna Nye Age: 75 Gender: F : 1945 Exam Date: 07/15/2020 13:11 Ordering Phys: Anayeli Brandon MD Technologist: Pool Osman [place] [facility] [place]: SYNCOPE BP: 135 / 82 HR: 100 Rhythm: Sinus Technical Quality: Fair MEASUREMENTS (Male / Female) Normal Values 2D ECHO LV Diastolic Diameter PLAX 2.6 cm 4.2 - 5.9 / 3.9 - 5.3 cm LV Systolic Diameter PLAX 1.6 cm IVS Diastolic Thickness 0.9 cm 0.6 - 1.0 / 0.6 - 0.9 cm IVS Systolic Thickness 1.0 cm LVPW Diastolic Thickness 1.0 cm 0.6 - 1.0 / 0.6 - 0.9 cm LVPW Systolic Thickness 1.2 cm LVOT Diameter 2.0 cm LV Ejection Fraction 2D Teich 71.1 % LV Ejection Fraction MOD 2C 73.1 % LV Ejection Fraction 2C AL 72.9 % LA Diameter 3.5 cm LA Width 3.7 cm LA Height 4.2 cm RA Width 2.4 cm RA Height 3.7 cm Aorta at Sinotubular Diameter 1.0 cm M-MODE LV Diastolic Diameter MM 3.7 cm 4.2 - 5.9 / 3.9 - 5.3 cm LV Systolic Diameter MM 3.0 cm LV Ejection Fraction MM Teich 37.6 % IVS Diastolic Thickness MM 0.7 cm 0.6 - 1.0 / 0.6 - 0.9 cm IVS Systolic Thickness MM 1.8 cm LVPW Diastolic Thickness MM 0.9 cm 0.6 - 1.0 / 0.6 - 0.9 cm LVPW Systolic Thickness MM 1.6 cm RV Diastolic Diameter MM 1.9 cm Aortic Annulus Diameter 3.3 cm LA Ao Ratio MM 1.1 MV E Point Septal Separation 0.4 cm DOPPLER AV Peak Velocity 114.0 cm/s LVOT Peak Velocity 96.0 cm/s AV Area Cont Eq vti 2.7 cm squared AV Area Cont Eq pk 2.6 cm squared MV Area PHT 6.7 cm squared MV E' Velocity 4.0 cm/s Mitral E to MV E' Ratio 23.6 Mitral E to LV E' Lateral Ratio 37.8 Mitral E to LV E' Septal Ratio 17.2 TR Peak Velocity 264.0 cm/s TR Peak Gradient 27.8 mmHg TV Peak E Velocity 123.0 cm/s Right Atrial Pressure 3.0 mmHg Pulmonary Artery Systolic Pressu 30.9 mmHg PV Peak Velocity 97.0 cm/s FINDINGS Left Ventricle Normal left ventricular size, systolic function and wall thickness, with no regional wall motion abnormalities. Left ventricular ejection fraction is estimated at 60 %. Abnormal diastolic function. Right Ventricle Normal right ventricular size and systolic function, RVSP 30.9 mmHg. Right Atrium Right atrium not well visualized. Left Atrium Left atrium not well visualized. Probably mildly increased left atrial size. Mitral Valve Moderate mitral annular calcification. No mitral valve stenosis. Trace mitral valve regurgitation. Aortic Valve Mildly thickened trileaflet aortic valve. No aortic valve stenosis. Trace aortic valve regurgitation. Tricuspid Valve Structurally normal tricuspid valve. Trace tricuspid valve regurgitation. Pulmonic Valve Structurally normal pulmonic valve. No significant pulmonary valve regurgitation. Pericardium No pericardial effusion. Aorta Normal-sized aortic root. CONCLUSIONS 1. Normal left ventricular size, systolic function and wall thickness, with no regional wall motion abnormalities. Left ventricular ejection fraction is estimated at 60 %. Abnormal diastolic function. 2. Pulmonary artery pressure estimated at 31 mmHg. 3. Trace aortic valve regurgitation. 4. When compared to previous echocardiogram dated 05/03/2020, there has been no significant change. Mirtha Page MD (Electronically Signed) Final Date: 15 July 2020 17:22 S
[2020-07-15 12:38] LABS: Chol HDL Ratio 6.12 mg/dL (0.0-4.40); Cholesterol 153 mg/dL (0-200); HDL Cholesterol 25 mg/dL (60-100); LDL Cholesterol Calculated 63 mg/dL (50-129); LDL HDL Ratio 2.52 RATIO (0.00-3.22); Triglycerides 323 mg/dL (0-150)
[2020-07-15 12:44] LABS: Estmated Average Glucose 123; Hemoglobin A1C 5.9 % (4.0-6.0)
--- NOTE | 2020-07-15 13:59 | PC.CHAP ---
Pastoral Care Encounter/Spiritual Assessment Type of Contact [] Declined truck driver supervisor visit [] Patient/Family/Request visit [] Outpatient visit [] Follow-up visit [] Physician referral [] Code/Alert [] Routine visit [] Staff referral [] Actively dying [] Patient sleeping [] Family support [] [] Out of room [] Palliative care [] [x] Receiving care in room [] Pre-surgical visit [] Trauma [] Long length of stay [] ICU visit [] Other: Relational/Emotional Strength [] Patient feels connected with others/family/visitors/staff [] Distress [] Loneliness/isolation [] Abandonment Spirituality of Patient [] Person of Kylie [] Attends Buddhist of their Kylie [] Believes in Prayer [] Reads Bible or Evangelical materials [] There are Spiritual issues to be addressed Fruit Rancher Interventions [] Prayer [] Active listening [] Non-anxious presence [] Spiritual/emotional support [] Crisis/trauma care [] Spiritual counseling [] Bereavement support [] Provided bereavement packet [] Provided Bible/devotional materials [] Provided toy/stuffed animal, coloring book to patient or family member [] Provided Communion [] Anointing/Hecker [] Salvation [] Completed spiritual assessment [] Other: Impact on Illness or Injury [] Angry [] Fearful [] Anxious [] Often cries [] Exhaustion [] Unable to work [] Unable to attend yazidism [] Unable to walk/stand [] Unable to read [] Unable to drive [] Unable to eat/drink [] Unable to sleep [] Unable to be with family [] Patient intubated [] Other: Summary Patient was receiving care from the nursing staff at the time of the truck driver supervisor visit. Patient visit was attempted by Fruit Rancher Albaro Bailey. Time spent with patient 3 minutes
[2020-07-15 14:07] LABS: Glucose Point of Care 114 mg/dL (70-110)
[2020-07-15] MEDS: aspirin 81 mg EC Tablet PO (14:07)
[2020-07-15] MEDS: pantoprazole DR 40 mg Tablet PO (14:07)
[2020-07-15] MEDS: NIFEdipine ER (24 hr) 30 mg Tablet PO (14:07)
[2020-07-15 17:09] LABS: Glucose Point of Care 132 mg/dL (70-110)
[2020-07-15] MEDS: acetaminophen 325 mg Tablet 650 MG PO (18:07)
[2020-07-15] MEDS: docusate sodium 100 mg Capsule PO (18:07)
[2020-07-15 21:16] LABS: Glucose Point of Care 175 mg/dL (70-110)
[2020-07-16] VITALS (7 sets, daily range): BP systolic 113–152; BP diastolic 64–81; PULSE 85–121; RESP 18; TEMP 36.6–37.3; O2SAT 95–98
[2020-07-16 06:56] LABS: Glucose Point of Care 139 mg/dL (70-110)
--- NOTE | 2020-07-16 08:14 | PC.CHAP ---
Pastoral Care Encounter/Spiritual Assessment Type of Contact [] Declined solar thermal installer visit [] Patient/Family/Request visit [] Outpatient visit [] Follow-up visit [] Physician referral [] Code/Alert [x] Routine visit [] Staff referral [] Actively dying [] Patient sleeping [] Family support [] [] Out of room [] Palliative care [] [] Receiving care in room [] Pre-surgical visit [] Trauma [] Long length of stay [] ICU visit [] Other: Relational/Emotional Strength [x] Patient feels connected with others/family/visitors/staff [] Distress [] Loneliness/isolation [] Abandonment Spirituality of Patient [x] Person of Kylie [x] Attends Anabaptist of their Kylie [x] Believes in Prayer [x] Reads Bible or Jainism materials [] There are Spiritual issues to be addressed Health And Wellness Manager Interventions [x] Prayer [x] Active listening [x] Non-anxious presence [x] Spiritual/emotional support [] Crisis/trauma care [] Spiritual counseling [] Bereavement support [] Provided bereavement packet [] Provided Bible/devotional materials [] Provided toy/stuffed animal, coloring book to patient or family member [] Provided Communion [] Anointing/[place] [] Salvation [x] Completed spiritual assessment [] Other: Impact on Illness or Injury [] Angry [] Fearful [] Anxious [] Often cries [] Exhaustion [] Unable to work [] Unable to attend restoration [] Unable to walk/stand [] Unable to read [] Unable to drive [] Unable to eat/drink [] Unable to sleep [x] Unable to be with family [] Patient intubated [] Other: Summary Patient was open to solar thermal installer visit. Patient was in bed resting. Patient was talkative and share her story of how she came to be in the hospital. Patient is hoping to go home today. Health And Wellness Manager enquired of any needs, none at this time. Health And Wellness Manager prayed for Patient. Time spent with patient 15 min.
[2020-07-16] MEDS: acetaminophen 325 mg Tablet 650 MG PO (08:15)
[2020-07-16] MEDS: aspirin 81 mg EC Tablet PO (08:15)
[2020-07-16] MEDS: NIFEdipine ER (24 hr) 30 mg Tablet PO (08:15)
[2020-07-16] MEDS: atorvastatin 40 mg Tablet 20 MG PO (08:15)
[2020-07-16] MEDS: docusate sodium 100 mg Capsule PO ×2 (08:15→17:17)
[2020-07-16] MEDS: pantoprazole DR 40 mg Tablet PO (08:15)
[2020-07-16] MEDS: cefTRIAXone 1,000 MG in sodium chloride 0.9% (plus) 50 ML 100 MG IV (08:19)
--- NOTE | 2020-07-16 09:20 | CT_ITS ---
WS: [id number] CT ANGIOGRAM CEREBRAL AND CAROTID ARTERIES HISTORY: B/L carotid stenosis 70-99% on duplex, clinically TIA TECHNIQUE: CT angiogram is performed of the carotid and cerebral arteries. During arterial injection imaging is obtained from the skull vertex to the aortic arch in 1.25 mm imaging. Coronal and sagittal reformats are submitted. Additional multi planar reformats of the carotid and cerebral arteries are submitted, MIP imaging also reviewed. NASCET criteria utilized. All CT scans at [facility] use at least one of these dose optimization techniques: automated exposure control; mA and/or kV ad justment per patient size (includes targeted exams where dose is matched to clinical indication); or iterative reconstruction. CONTRAST: Omnipaque 350; 95 mL IV. DLP: 5022.0 mGy.cm COMPARISON: Carotid ultrasound. Carotid Angiogram: Right carotid: Common carotid artery: Arises normally from the innominate artery. Calcified plaque and intimal thick ening in the distal common carotid artery near the bifurcation. Internal carotid artery: High-grade short segment stenosis with calcified plaque and intimal thickeni ng. Stenosis calculated at 87%. External carotid artery: Patent. Left carotid: Common carotid artery: Arises normally from the aorta. No significant plaque or stenosis. Internal carotid artery: High-grade stenosis extending over length of 2.5 cm involving the proximal I CA. Calcified and noncalcified plaque. Stenosis calculated at 84%. External carotid artery: Patent. Right vertebral artery: Small caliber RIGHT vertebral artery with no occlusion. Left vertebral artery: Dominant LEFT vertebral artery. Subclavian arteries: No stenosis or significant abnormality. Upper thorax: Chronic emphysema. Thyroid gland: Normal. Osseous structures: Severe degenerative changes in the cervical spine at C4-5, C5-6 and C6-7. Osteope le. CEREBRAL ANGIOGRAM: Intracranial vertebral arteries: Small caliber RIGHT vertebral artery. Basilar artery: No significant stenosis or occlusion. No aneurysm. Intracranial Internal carotid arteries: Mild atherosclerotic plaque in the cavernous sinuses. Slightl y greater narrowing on the LEFT. Middle cerebral arteries: Focal plaque mild stenosis proximal LEFT M1 segment. Anterior cerebral arteries and ACOM: Normal. Posterior cerebral arteries and PCOM's: Normal. Dural venous sinuses are normally enhancing. Mastoid air cells: Normal. Paranasal sinuses: Mild mucoperiosteal thickening in the RIGHT frontal ethmoid recess. Calvarium: Normal. CT/CT angio headneck* [id number] IMPRESSION: 1. High-grade proximal LEFT vertebral artery stenosis 84%. 2. High-grade proximal RIGHT vertebral artery stenosis 87%. 3. Mild atherosclerosis LEFT intracranial carotid arteries to the cavernous si nus and M1 segment LEFT MCA.
[2020-07-16 11:06] LABS: Glucose Point of Care 176 mg/dL (70-110)
[2020-07-16] MEDS: iohexol 350 mg/mL 100 mL Btl IV (11:41)
[2020-07-16] MEDS: sodium chloride 0.9% 1,000 ML 100 ML IV (12:07)
--- NOTE | 2020-07-16 16:54 | P.PN_ITS ---
Subjective Subjective: Interval history: patient's carotod duplex yesetrday returned with B/L 70-99% stenosis following which CTA head and neck has been ordered today and consult requested from Dr. Coulter. She is alert, awake and oriented at this time. 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: no focal neuro deficits at this time Urinary Catheter Management^: Gar: Cath Placed During This Visit: yes, but has since been removed by the nurse Reason for Continuing Indwelling Catheter: Decision to DC Catheter Urinary Catheter Date of Insertion: 07/14/20 Urinary Catheter Time of Insertion: 20:16 Date Urinary Catheter Removed: 07/15/20 Time Urinary Catheter Discontinued: 17:15 Data : 07/15/20 07:30 07/15/20 07:30 Micro: Microbiology 07/14/20 20:00 Urine Culture - Preliminary Urine Catheterized 07/14/20 20:15 Blood Culture - Preliminary Blood NEGATIVE TO DATE 07/14/20 19:30 Blood Culture - Preliminary Blood NEGATIVE TO DATE A&P Assessment and plan (1) Fall at home: Status: Acute Qualifiers: Encounter type: initial encounter Qualified Code(s): W19.XXXA - Unspecified fall, initial encounter; Y92.009 - Unspecified place in unspecified non-institutional (private) residence as the place of occurrence of the external cause (2) Closed head injury: Status: Acute Qualifiers: Encounter type: initial encounter Qualified Code(s): S09.90XA - Unspecified injury of head, initial encounter (3) Altered mental status: Status: Acute Qualifiers: Altered mental status type: unspecified Qualified Code(s): R41.82 - Altered mental status, unspecified (4) Fever: Status: Acute Qualifiers: Fever type: unspecified Qualified Code(s): R50.9 - Fever, unspecified (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 No evidence of acute intracranial events on CT head. Could have had a concussion , will need close neuro observation to see if mental status improvement is sustained vs a short lucid interval No acute events on telemetry carotid duplex with B/L 70-99% stenosis. CTA of the head and neck with 3D reconstruction has been ordered. Consult with Dr. Jonas 2D echo with Normal left ventricular size, systolic function and wall thickness, with no regional wall motion abnormalities. Left ventricular ejection fraction is estimated at 60 %. Abnormal diastolic function. continue ASA and statin continue ceftriaxone empirically for possible UTI, likely d/c tomorrow if remains afebrile low suspicion for meningitis given quick recovery of mental status Sliding scale insulin currently Continue home nifedipine Continue Protonix PT/OT/speech evaluations Attestations Medical Necessity Statement*: B/L carotid artery stenosis for further evaluation Coding Level of Care Code Acute Mat Tester for Chg Fwd Diagnoses Fall at home W19.XXXA; Y92.009 Encounter type: initial encounter Closed head injury S09.90XA Encounter type: initial encounter Altered mental status R41.82 Altered mental status type: unspecified Fever R50.9 Fever type: unspecified Gastric lymphoma C85.99
[2020-07-16 17:04] LABS: Glucose Point of Care 142 mg/dL (70-110)
[2020-07-16 20:42] LABS: Glucose Point of Care 188 mg/dL (70-110)
[2020-07-17] VITALS: BP 126/56; PULSE 117; RESP 18; TEMP 36.6; O2SAT 95
[2020-07-17] MEDS: sodium chloride 0.9% 1,000 ML 100 ML IV (01:34)
[2020-07-17 04:00] VITALS: BP 139/80; PULSE 127; RESP 18; TEMP 37.1; O2SAT 95
[2020-07-17] MEDS: acetaminophen 325 mg Tablet 650 MG PO (05:12)
[2020-07-17] MEDS: ondansetron 2 mg/ML SDV 2 mL 4 MG IVP (05:19)
--- NOTE | 2020-07-17 06:29 | P.CONIM_ITS ---
Providers/Reason For Consult Consulting Physican/Specialty*: Dr. Jonas/cardiothoracic surgery Reason for Consult*: Bilateral carotid artery stenoses with history of recent syncope Attending Physician: Anayeli Brandon MD Primary Care Provider: Mahamed Cuba MD History of Present Illness History of Present Illness Jenna Nye is a 75 year old female who was admitted after presenting to the emergency department 2 days ago on July 15 with a chief complaint of alteration in mental status. Patient has amnesia as to the details though stated the patient fell outside while working in the garden around 3 PM. Patient, at the time of her presentation to the emergency department, could not recall the fall but her noted that there was a contusion of the left lateral frontal area with some abrasions which would be consistent with a recent fall. Postevent patient developed confusion and therefore she was brought to the emergency department. No specific focal deficits were recorded. No loss of bowel or bladder function. 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 Her last planned therapeutic course is in about 2 weeks. Currently receiving R-CHOP. 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 She currently remains on Femara. Past history is pertinent for prior history for CVA February 07, 2019. I have been contacted yesterday by Dr. Brandon after initial evaluations included carotid duplex study suggestive of high-grade lesions due to increased velocities. I recommended CTA of the head and neck at that time. The studies been completed I have personally reviewed. There are high-grade bilateral proximal internal carotid artery stenoses of 87% on the right and 84% on the left. Presently, she is resting comfortably on the medical surgical freire. She is neurologically intact. She does complain of a headache and some eye discomfort though she is on atenolol for glaucoma. Apparently, she has not taken that medication since admission. Upon my questioning with her at bedside today, she states that she actually does now recall that she tripped over a rock in the garden while she was tending to ray and this resulted in her striking her head on the ground. He cannot recall this at the time of her original presentation to the emergency department. It appears now, that she is confident that she actually tripped which resulted in the fall. Review of Systems Const: Denies: fever(s), chills, change in appetite, change in weight, fatigue or night sweats Eyes: Denies: change in vision or blurry vision ENMT: Denies: odynophagia or hoarseness Card: Denies: chest pain, palpitations, irregular heart rhythm or edema Resp: Denies: dyspnea or productive cough GI: Denies: abdominal pain, nausea, vomiting, dysphagia, heartburn or change in bowel habits : Denies: dysuria, urinary frequency, urinary urgency or urinary hesitancy Musc: Denies: extremity pain or extremity swelling Skin/Breast: Denies: rash Neuro: Denies: headache(s), numbness in extremities, weakness in extremities or sensory changes Psych: Denies: anxiety, depression or change in appetite Endo: Denies: polyuria, polydipsia or cold intolerance Hector/Lymph: Denies: easy bruising, easy bleeding, petechiae or enlarged lymph nodes Meds/Allergies Home Medications and Allergies Home Medications Medication Instructions Recorded Confirmed Last Taken Type aspirin 81 mg tablet,delayed 81 mg PO DAILY 12/26/19 07/15/20 04/02/20 History release calcium carbonate 500 mg calcium 500 mg PO DAILY 12/26/19 07/15/20 04/15/20 History (1,250 mg) tablet letrozole 2.5 mg tablet 2.5 mg PO DAILY 12/26/19 07/15/20 04/15/20 History multivitamin,xj-umev-ziizcnfd 1 tab PO DAILY 12/26/19 07/15/20 04/15/20 History brimonidine 0.1 % eye drops 1 drop OPHTHALMIC (EYE) Q8H 12/28/19 07/15/20 04/16/20 History timolol 0.5 % eye drops 1 drop OPHTHALMIC (EYE) BID 12/28/19 07/15/20 04/16/20 History vit C 250 mg-vit E 200 unit-zinc 1 cap PO BID 12/28/19 07/15/20 04/15/20 History ox 12.5 ly-ycrlbo-zkrfsj-zeax capsule pantoprazole 40 mg tablet,delayed 40 mg PO DAILY #90 tab 01/09/20 07/15/20 04/15/20 Rx release hydrochlorothiazide 12.5 mg capsule 12.5 mg PO DAILY #90 cap 01/30/20 07/15/20 04/16/20 Rx meloxicam 15 mg tablet 15 mg PO DAILY #30 tab 04/01/20 07/15/20 04/15/20 Rx hydrocodone-acetaminophen [[place]] 1 tab PO Q6H PRN #15 tab NS 04/16/20 07/15/20 Unknown Rx simvastatin 20 mg tablet 20 mg PO DAILY #90 tab 05/16/20 07/15/20 Unknown Rx nifedipine 30 mg tablet,extended 30 mg PO DAILY #30 tab 06/28/20 07/15/20 Unknown Rx release insulin regular human [Novolin R See Rx Instructions .ROUTE .COMPLEX 07/15/20 07/15/20 Unknown History Flexpen] lorazepam [Ativan] 1 mg PO DAILY PRN 07/15/20 07/15/20 Unknown History Allergies Allergy/AdvReac Type Severity Reaction Status Date / Time adhesive tape Allergy ALGY-Rash Verified 04/26/20 08:21 Current Medications Current Medications Generic Name Dose Route Start Last Admin Trade Name Freq PRN Reason Stop Dose Admin Acetaminophen 650 mg 07/15/20 03:58 07/17/20 05:12 Tylenol PO 650 mg Q6H PRN Administration Mild/Mod Pain Or Temp >/= 101 Aspirin 81 mg 07/15/20 12:15 07/16/20 08:15 Aspirin Ec PO 81 mg DAILY DEIDRE Administration Atorvastatin Calcium 20 mg 07/16/20 09:00 07/16/20 08:15 Lipitor PO 20 mg DAILY DEIDRE Administration Docusate Sodium 100 mg 07/15/20 18:00 07/16/20 17:17 Colace PO 100 mg BID DEIDRE Administration Sodium Chloride 1,000 mls @ 100 mls/hr 07/14/20 19:15 07/17/20 01:34 Sodium Chloride 0.9% IV 100 mls/hr .Q10H DEIDRE Administration Sodium Chloride 1,000 mls @ 75 mls/hr 07/15/20 12:00 07/17/20 05:14 Sodium Chloride 0.45% IV Not Given .[id number] DEIDRE Ceftriaxone Sodium 1,000 mg/ 50 mls @ 100 mls/hr 07/16/20 09:00 07/16/20 08:49 Sodium Chloride IV Infused Q24H DEIDRE Infusion Protocol Insulin Aspart 0 unit 07/15/20 21:00 07/16/20 21:37 Novolog SUBCUT 2 unit BEDTIME DEIDRE Administration Protocol Insulin Aspart 0 unit 07/15/20 12:00 07/16/20 17:17 Novolog SUBCUT 2 unit TIDWM DEIDRE Administration Protocol Nifedipine 30 mg 07/15/20 12:30 07/16/20 08:15 Procardia Xl PO 30 mg DAILY DEIDRE Administration Ondansetron HCl 4 mg 07/15/20 03:58 07/17/20 05:19 Zofran IVP 4 mg Q6H PRN Administration NAUSEA AND VOMITING Pantoprazole Sodium 40 mg 07/15/20 12:15 07/16/20 08:15 Protonix PO 40 mg DAILY DEIDRE Administration PFSH Acute PFSH: Medical History Cervical disc disorder with myelopathy of mid-cervical region Chronic bronchitis HX: breast cancer ER MT negative, 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 status post radiation therapy and hormonal therapy, currently on Femara Hyperlipidemia 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 disc disorder 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 region 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 Lumbar stenosis without neurogenic claudication Pain management contract signed Port-A-Cath in place 04/16/20 Spondylolisthesis of cervical region 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 (cerebrum) Hx of stroke in February 07, 2019 Surgical History H/O total hip arthroplasty History of cholecystectomy History of hysterectomy Social History Smoking and tobacco status: never smoked Alcohol intake: never Lives independently: Yes Household members: spouse Marital status: Current occupational status: retired History of recent travel: No Vitals/I&O/Wt Last Vital Signs Temp 98.7 F 07/17/20 04:00 Pulse 127 H 07/17/20 04:00 Resp 18 07/17/20 04:00 BP 139/80 07/17/20 04:00 Pulse Ox 95 07/17/20 04:00 07/16/20 07/16/20 07/17/20 14:59 22:59 06:59 Intake Total 650 / 650 1120 / 1770 Output Total 250 / 250 Balance 650 / 650 870 / 1520 Physical Exam Const: COMMON NORMALS: patient oriented x3 HENMT: COMMON NORMALS: normocephalic and hearing grossly normal bilaterally; head/scalp not atraumatic (There is a left frontal contusion and slight abrasion as well as mild periorbital ecchymosis of the left side) HEAD & SCALP: normocephalic and laceration (Left frontal); not atraumatic (There is a left frontal contusion and slight abrasion as well as mild periorbital ecchymosis of the left side) Chest: COMMONS NORMALS: normal inspection of the chest (Right-sided Port-A-Cath) OTHER: Chest x-ray is clear with right-sided Port-A-Cath terminating in the SVC/right atrial junction Resp: COMMON NORMALS: normal respiratory effort, No use of accessory muscles and clear to auscultation bilaterally EFFORT & INSPECTION: Yes able to speak in complete sentences and Yes symmetric chest movement AUSCULTATION: clear to auscultation bilaterally Cardio: COMMON NORMALS: regular rate, regular rhythm, S1 normal heart sound present and S2 normal heart sound present RATE: regular rate RHYTHM: regular rhythm HEART SOUNDS: S1 normal heart sound present and S2 normal heart sound present Extremity: COMMON NORMALS: no clubbing, cyanosis or edema Neuro: COMMON NORMALS: patient oriented x3, moves all extremities, no focal motor deficits and no sensory deficits noted Psych: COMMON NORMALS: mental status grossly normal, Normal thought process present, cooperative, normal affect and speech normal SPEECH: Yes normal speech THOUGHT PROCESS: Normal thought process present Urinary Catheter Management^: Gar: Cath Placed During This Visit: yes, but has since been removed by the nurse Reason for Continuing Indwelling Catheter: Decision to DC Catheter Urinary Catheter Date of Insertion: 07/14/20 Urinary Catheter Time of Insertion: 20:16 Date Urinary Catheter Removed: 07/15/20 Time Urinary Catheter Discontinued: 17:15 Data Micro: Micro: Microbiology 07/14/20 20:00 Urine Culture - Pr eliminary Urine Catheterize d A&P Assessment and plan (1) Bilateral carotid artery stenosis without cerebral infarction: Pleasant 75-year-old female with a recent syncopal episode and documented high-grade bilateral carotid artery stenoses of 87% on the right and 84% on the left. Prior history of breast carcinoma. Currently under chemotherapy treatment for high-grade B cell gastric lymphoma. Given her high-grade lesions, I would recommend staged carotid endarterectomies. Related to her age and also her current malignancy, I would like to confirm this is considered appropriate from a neurological and oncologic standpoint as she does fall outside the baseline study group for recommendation of carotid endarterectomies in the asymptomatic patient. Given she has no witnessed localizing signs, despite her apparent syncope, I cannot attribute to a specific carotid lesion which we have documented. However, given her bilateral disease of high-grade nature, I do think it would be prudent to proceed with staged interventions for these lesions. With my questioning at bedside, she states that she feels her fall was related to tripping over a rock. She cannot recall this specifically upon her original presentation to the emergency room, though she is competent during my discus sions that she actually tripped and did not lose consciousness prior to the fall. I will speak further with our hospitalist colleagues. I do recommend conversations with our oncologic and neurologic colleagues to confirm there agreement that this is the appropriate therapy giving this clinical setting. I have spoken very frankly and carefully with Ms. Nye concerning our recommendation. Rationale was carefully discussed. Particular risk of the surgery, including stroke, temporary or permanent hoarseness, swallowing difficulties, deviation of the tongue, recurrence of stenosis, infection, major bleeding complications, need for long-term surveillance were very frankly discussed. I have conferred with Dr. Brenner from oncology as well as Dr. Sood from neurology. Both concur from their disciplines that there is no prohibitive measurement to elective carotid endarterectomies. However, given that the presentation is probably not related to these carotid lesions, intervention can be scheduled electively. Given that she is scheduled for chemotherapy in 2 weeks, it would be reasonable to delay elective surgery to allow for this chemotherapy to continue on schedule and thereby provide maximal benefit for treatment of her gastric lymphoma. It is recommendation to continue aspirin and and schedule follow-up in my clinic in 4 weeks for further assessment of her recovery from her chemotherapy and further discussions with her with her present as to the rationale for elective endarterectomies for these bilateral carotid lesions. I counseled with Mrs. Nye about this and she is in agreement. I have also confer with my colleague Dr. Brandon. I would like to thank Dr. Brenner and Dr. Sood for their input and assistance. Status: Acute Consult Attestations Medical Necessity Statement: High-grade bilateral carotid artery stenoses with recent history of syncope Time Spent in Patient Care: Greater than 35 minutes Coding Level of Care Code Acute Area Safety Manager for [facility] Fwd Diagnoses Bilateral carotid artery stenosis without cerebral infarction I65.23
[2020-07-17 06:44] LABS: Glucose Point of Care 131 mg/dL (70-110)
[2020-07-17 08:00] VITALS: BP 122/70; BP 135/77; PULSE 110; PULSE 85; RESP 18; RESP 20; TEMP 36.8; O2SAT 110; O2SAT 95
--- NOTE | 2020-07-17 08:00 | PC.NURSE ---
Dr Samuels present at bedside. Rescheduling surgery until after last chemo--approximately 3-4 weeks. Consent not needed and on hold meds discontinued verbally.
[2020-07-17] MEDS: NIFEdipine ER (24 hr) 30 mg Tablet PO (10:45)
[2020-07-17] MEDS: aspirin 81 mg EC Tablet PO (10:45)
[2020-07-17] MEDS: pantoprazole DR 40 mg Tablet PO (10:46)
[2020-07-17] MEDS: docusate sodium 100 mg Capsule PO (10:46)
[2020-07-17] MEDS: atorvastatin 40 mg Tablet 20 MG PO (10:46)
[2020-07-17] MEDS: cefTRIAXone 1,000 MG in sodium chloride 0.9% (plus) 50 ML 100 MG IV (10:51)
[2020-07-17 11:07] VITALS: BP 142/79; PULSE 105; RESP 20; TEMP 36.6; O2SAT 100
[2020-07-17 11:07] LABS: Glucose Point of Care 161 mg/dL (70-110)
--- NOTE | 2020-07-17 14:36 | PC.NURSE ---
Pt's port deaccessed without difficulty. Pt has reddened area d/t tape. Pt given discharge instructions. No questions or concerns voiced. Staff escorted pt out to 's vehicle via WC. Pt pleasant and excited to go home. Denies pain.
--- NOTE | 2020-07-17 17:47 | PM.DCS ---
Discharge Providers Date of Admission: 07/15/20 20:17 Date of Discharge: July 17, 2020 Attending Provider at Admission: Loretta Lowery MD Attending Provider at Discharge: Anayeli Brandon MD Primary Care Provider: Mahamed Cuba MD Diagnoses at Discharge Discharge Diagnosis (1) Bilateral carotid artery stenosis without cerebral infarction: Status: Acute Reason for Visit Reason for Visit: big knot on left side of head Hospital Course Discharge Summary: Patient is a 75-year-old lady with a history of gastric lymphoma who presented from home with history of fall in unclear circumstances, possibly mechanical. Hospital course as below. # H/o fall at home in unclear circumstances followed by AMS at home as noticed by her In the ER upon initial arrival was noted to be disoriented, however on my subsequent assessments now she is alert and awake, though does not recall circumstances of her fall Differentials include syncope vs TIA vs mechanical fall. Per patient who recalls the events, keep stating that she had a mechanical fall and tripped over a stone in her garden. No evidence of acute intracranial events on CT head. Could have had a concussion No acute events on telemetry carotid duplex with B/L 70-99% stenosis. CTA of the head and neck redemonstrated occlusive disease. Consult was sought with Dr. Jonas. Overall felt to represent asymptomatic carotid lesions. Plan is to follow-up with Dr. Jonas after her next cycle of chemotherapy to discuss possible interventions. 2D echo with Normal left ventricular size, systolic function and wall thickness, with no regional wall motion abnormalities. Left ventricular ejection fraction is estimated at 60 %. Abnormal diastolic function. continue ASA and statin low suspicion for meningitis given quick recovery of mental status Patient is being discharged home today in stable condition. Mental status quickly recovered back to baseline. Physical Exam Narrative: EXAM NARRATIVE: GEN: Awake, alert and oriented, no acute distress CVS: S1S2 N RS: CTA B/L Abd: Soft, nt/nd , bs+ CATH LAB RADIOLOGY TECHNICIAN: no focal neuro deficits Urinary Catheter Management^: Gar: Cath Placed During This Visit: yes, but has since been removed by the nurse Reason for Continuing Indwelling Catheter: Decision to DC Catheter Urinary Catheter Date of Insertion: 07/14/20 Urinary Catheter Time of Insertion: 20:16 Date Urinary Catheter Removed: 07/15/20 Time Urinary Catheter Discontinued: 17:15 Discharge Data Data Completed and Pending: Completed Studies During Hospitalization Category Date Time Status CT angio headneck * [id number] Rout ine Cat Scan 07/16/20 09:[address] cervical spin wo con* [id number] Stat Cat Scan 07/14/20 19:[address] head wo con* [id number] Stat Cat Scan 07/14/20 19:14 Completed XR chest 1V richard ble [id number] Stat Exams 07/14/20 19:14 Completed CV carotid duplex BI* [id number] Routine Ultrasound 07/15/20 11:54 Completed CV echo complete* [id number] Routine Ultrasound 07/15/20 12:06 Completed Pending at discharge Category Date Time Status Blood Culture Sta t Lab 07/14/20 20:15 Results Leukocyte Reduced RBC Routine Lab 07/17/20 07:05 Results Type and Screen R outine Lab 07/17/20 07:05 Results Labs from last 24 hours 07/17/20 07/17/20 07/17/20 11:03 07:05 06:32 POC Glucose 161 131 Blood Type B Positive Rho(D) Type Positive Antibody Screen Negative Crossmatch See Detail 07/16/20 20:34 POC Glucose 188 Blood Type Rho(D) Type Antibody Screen Crossmatch Vitals: Last Vital Signs Temp 97.8 F 07/17/20 11:07 Pulse 105 H 07/17/20 11:07 Resp 20 H 07/17/20 11:07 BP 142/79 07/17/20 11:07 Pulse Ox 100 07/17/20 11:07 Discharge Plan Discharge Patient Disposition: Home Condition: Stable Prescriptions: Continued aspirin 81 mg tablet,delayed release (DR/EC) 81 mg PO DAILY RF: 0 Hold Instructions: Resume on 04/20/20. Complete Multivitamin Tablet 1 tab PO DAILY RF: 0 calcium carbonate [Calcium 500] 500 mg calcium (1,250 mg) tablet 500 mg PO DAILY RF: 0 letrozole 2.5 mg tablet 2.5 mg PO DAILY RF: 0 Alphagan P 0.1 % drops 1 drop ophthalmic (eye) Q8H RF: 0 timolol 0.5 % drops 1 drop ophthalmic (eye) BID RF: 0 ICaps AREDS2 250 mg-200 unit -12.5 mg-1 mg capsule 1 cap PO BID RF: 0 Protonix 40 mg tablet,delayed release (DR/EC) 40 mg PO DAILY Qty: 90 RF: 3 hydrochlorothiazide 12.5 mg capsule 12.5 mg PO DAILY Qty: 90 RF: 3 meloxicam 15 mg tablet 15 mg PO DAILY Qty: 30 RF: 3 Hold Instructions: Resume on 04/20/20. simvastatin 20 mg tablet 20 mg PO DAILY Qty: 90 RF: 0 nifedipine 30 mg tablet extended release 30 mg PO DAILY Qty: 30 RF: 3 Ativan 1 mg Tablet 1 mg PO DAILY PRN (Reason: Nausea) RF: 0 Novolin R Flexpen 100 unit/mL (3 mL) Insulin Pen See Rx Instructions .ROUTE .COMPLEX RF: 0 hydrocodone-acetaminophen [[place]] 5-325 mg tablet 1 tab PO Q6H PRN (Reason: pain) Qty: 15 RF: 0 Discharge Orders: Discharge Order (Routine); Ordered 07/17/20 Ordered By: Anayeli Brandon Referrals: Mahamed Cuba MD [Primary Care Provider] - 07/23/20 2:15 pm (You have an appointment on July 23 at 2:15) Giuliano Jonas MD [Physician] - (Please call patient at home with a appointment with Dr. Jonas. Faxed information to clinic) Carl Thompson MD [Staff Physician] - 07/29/20 10:00 am (You have an appointment on July 29 at 10:00am) Discharge Diet: Usual diet, Cardiac, Low Cholesterol and Low Fat Discharge Activity: Resume usual activity Patient Instructions: Carotid Artery Disease (DC), Minor Head Injury (DC), Fall Prevention (DC) Discharge Attestations Time Spent in Discharge Care*: greater than 30 min Quality Metrics Clinical Quality Measures During this hospital stay, did patient experience: None Coding Level of Care Code Acute [employer] for [facility] Fwd Diagnoses Bilateral carotid artery stenosis without cerebral infarction I65.23
== END 2020-07-17 15:00 | disposition home or self-care (01) | DRG 68 ==
LOC: ER 19:14 → MEDSURG 07-15 01:19
PROVIDERS: Emergency Medicine; Admitting Provider Hospitalist; PCP Internal Medicine; Visit Provider Student in an Organized Health Care Education/Training Program
DX: I65.23 Occlusion and stenosis of bilateral carotid arteries (principal); C85.99 Non-Hodgkin lymphoma, unspecified, extranodal and solid organ sites; S09.90XA Unspecified injury of head, initial encounter; W19.XXXA Unspecified fall, initial encounter; Y92.009 Unspecified place in unspecified non-institutional (private) residence as the place of occurrence of the external cause; Z79.82 Long term (current) use of aspirin; E78.5 Hyperlipidemia, unspecified; Z85.3 Personal history of malignant neoplasm of breast; Z86.73 Personal history of transient ischemic attack (TIA), and cerebral infarction without residual deficits; Z92.21 Personal history of antineoplastic chemotherapy; D64.9 Anemia, unspecified
CPT/HCPCS: 12345; 36415; 36416; 36591; 36600; 51702; 70450; 70496; 70498; 71045; 72125; 76642; 77066; 80048; 80051; 80053; 80061; 80307; 81001; 82009; 82550; 82810; 82962; 83036; 83605; 83690; 83735; 83986; 84484; 85025; 85610; 86850; 86900; 86920; 87040; 87086; 87426; 87804; 92523; 92610; 93005; 93306; 93880; 96372; 96375; 97161; 97166; 97530; 97535; 99284; G0378; J0131; J0696; J1815; J2405; J2543; J3370; J7030; J7050; Q9967

== ENCOUNTER 2020-07-28 07:33 | Emergency (ER) | payer MEDICARE, OTHER, SELFPAY ==
[2020-07-28 07:40] VITALS: BP 155/100; PULSE 73; RESP 18; TEMP 36.4; O2SAT 99; BMI 24.7
--- NOTE | 2020-07-28 07:45 | XRR_ITS ---
PROCEDURE INFORMATION: Exam: XR Chest, 1 View Exam date and time: 07/28/2020 7:46 AM Age: 75 years old Clinical indication: Pain; Other: Upper abdominal; Additional info: Abd discomfort TECHNIQUE: Imaging protocol: XR of the chest Views: 1 view. COMPARISON: CR XR chest 1V portable [id number] 07/14/2020 7:32 PM FINDINGS: Lungs: Lungs are well aerated without a focal area of consolidation. Pleural space: Unremarkable. No pleural effusion. No pneumothorax. Heart/Mediastinum: The cardiac silhouette appears enlarged, some of which is magnification related to the AP projection. Vasculature: Chest port via the right subclavian approach with the tip overlying the superior vena cava. Bones/joints: Unremarkable. XR/XR chest 1V portable [id number] IMPRESSION: Lungs are well aerated without a focal area of consolidation.
--- NOTE | 2020-07-28 07:45 | CTR_ITS ---
PROCEDURE INFORMATION: Exam: CT Abdomen And Pelvis With Contrast Exam date and time: 07/28/2020 7:49 AM Age: 75 years old Clinical indication: Abdominal pain; Colic; Prior surgery; Surgery date: 6+ months; Surgery type: Gb, RT hip; Patient HX: History of lymphoma; Additional info: No bm since Wednesday TECHNIQUE: Imaging protocol: Computed tomography of the abdomen and pelvis with intravenous contrast. Radiation optimization: All CT scans at this facility use at least one of these dose optimization techniques: automated exposure control; mA and/or kV adjustment per patient size (includes targeted exams where dose is matched to clinical indication); or iterative reconstruction. Contrast material: OMNIPAQUE 300; Contrast volume: 95 ml; Contrast route: INTRAVENOUS (IV); COMPARISON: CT angio chest w abd pel w con 11/23/2019 4:27 AM RADIATION DOSE METRICS: Total DLP (mGy-cm): 632.56 FINDINGS: Lungs: Subtle reticulonodular pattern within the lung parenchyma/bases. No focal consolidation. Liver: Normal. No mass. Gallbladder and bile ducts: Surgical clips are present in the region of the gallbladder fossa. Pancreas: atrophy of the pancreas. Spleen: Sub cm low-attenuation lesion lower pole within the spleen. Possible small cyst. Stable. Adrenals: Normal. No mass. Kidneys and ureters: Mild prominence of the ureters bilaterally. No appreciable obstructing calculus. Limited in the pelvis secondary to metallic artifact. Stomach and bowel: Diverticulosis without evidence of diverticulitis. Large amount of stool throughout the large bowel. Appendix: The appendix is not visualized. Intraperitoneal space: No free fluid within the pelvis or within the dependent portions of the peritoneum. Vasculature: Incidental finding is a retroaortic left renal vein. Calcification of the aorta. Lymph nodes: Unremarkable. No enlarged lymph nodes. Urinary bladder: Unremarkable as visualized. Reproductive: Prior hysterectomy. Bones/joints: Hip arthroplasty on the right. Metallic artifact henders characterization of the pelvic structures. Degenerative changes are present within the spine. Degenerative changes are present within the spine. Soft tissues: Nodular density left breast of approximately 18 mm. Follow-up suggested. Other findings: No acute intra-abdominal process. No inflammatory process. No obstruction. CT/CT abdomen pelvis w con* [id number] IMPRESSION: 1. No acute intra-abdominal process. No inflammatory process. No obstruction. 2. No free fluid within the pelvis or within the dependent portions of the peritoneum. 3. Diverticulosis without evidence of diverticulitis. 4. Large amount of stool throughout the large bowel. 5. Nodular density left breast of approximately 18 mm. Follow-up suggested. 6. Subtle reticulonodular pattern within the lung parenchyma/bases. No focal consolidation. Favor fibrosis. See expanded differential diagnosis below. The differential diagnosis for a reticulonodular pattern includes viral disease such as mycoplasma pneumonia and PCP, fibrosis including idiopathic pulmonary fibrosis or fibrotic changes related to drugs, collagen vascular diseases, radiation, or asbestosis amongst others. Radiation Dose CTDIVOL = (mGy): DLP = 632.56 (mGy-cm)
--- NOTE | 2020-07-28 07:46 | W.ED.GENADLT ---
HPI - General Adult General: Chief complaint: Abdominal Pain Stated complaint: NO BM X 4DAYS Time Seen by Provider: 07/28/20 07:39 History of Present Illness: HPI narrative: Patient presents with complaint of no bowel movement since Wednesday. Denies nausea vomiting or abdominal pain. Patient does have some fullness discomfort in her abdomen. Last chemo treatment approximately 3 weeks ago she is been in hospital since then with a fall and confusion but confusion now gone. Patient denies any other problems besides lack of bowel movement. Patient has tried some [id number] oral laxatives has not tried any mag citrate or done any enemas. Said she did take a rubber glove and stick her finger upper rectum and said she could feel some stool. Denies it being hard. Onset (ago): day(s) Location: abdomen Quality: other (Fullness in abdomen) Associated symptoms: Reports no associated symptoms; Deny chest pain, dyspnea, headache(s), nausea, rash or vomiting Review of Systems Const: Denies: fever(s), chills or body aches Eyes: Denies: change in vision or blurry vision ENMT: Denies: throat pain or nasal congestion Card: Denies: chest pain or dyspnea on exertion Resp: Denies: dyspnea, productive cough or non-productive cough GI: Reports: constipation; Denies: abdominal pain, nausea or vomiting Musc: Denies: extremity pain Skin/Breast: Denies: rash Neuro: Denies: headache(s) Psych: Denies: anxiety or depression Hector/Lymph: Denies: easy bruising PFS ED PFSH: Medical History (Updated 07/28/20 @ 09:25 by MANN Chaudhry) Cervical disc disorder with myelopathy of mid-cervical region Chronic bronchitis Closed head injury HX: breast cancer ER MS negative, 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 status post radiation therapy and hormonal therapy, currently on Femara Hyperlipidemia 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 disc disorder 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 region MCC (current) use of opiate analgesic Lumbar stenosis without neurogenic claudication Pain management contract signed Port-A-Cath in place 04/16/20 Spondylolisthesis of cervical region 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 (cerebrum) Hx of stroke in February 07, 2019 Surgical History H/O total hip arthroplasty History of cholecystectomy History of hysterectomy Social History Smoking and tobacco status: never smoked Alcohol intake: never Lives independently: Yes Household members: spouse Marital status: Current occupational status: retired History of recent travel: No Physical Exam Const: COMMON NORMALS: no acute distress, average body habitus and patient oriented x3 HENMT: COMMON NORMALS: normocephalic HEAD & SCALP: normal to inspection and normocephalic FACE & SINUS: normal facial exam Eye: COMMON NORMALS: conjunctivae normal GENERAL EYE: appearance normal, both eyes and all related structures CONJUNCTIVA: Yes conjunctivae normal Neck/C-Spine: COMMON NORMALS: no JVD Chest: COMMONS NORMALS: normal inspection of the chest Resp: COMMON NORMALS: normal respiratory effort and clear to auscultation bilaterally AUSCULTATION: clear to auscultation bilaterally Cardio: COMMON NORMALS: no JVD, regular rate and regular rhythm RATE: regular rate RHYTHM: regular rhythm GI: COMMON NORMALS: Soft to palpation AUSCULTATION: Yes Hypoactive bowel sounds present PALPATION: Yes Soft to palpation PERCUSSION: normal to percussion RECTAL EXAM: deferred Extremity: COMMON NORMALS: normal to inspection and full ROM Neuro: COMMON NORMALS: patient oriented x3 Course Vital Signs: Vital signs: Vital Signs Temperature 97.6 F 07/28/20 07:40 Pulse Rate 77 07/28/20 08:36 Respiratory Rate 18 07/28/20 08:36 Blood Pressure 125/51 07/28/20 08:36 Pulse Oximetry 98 07/28/20 08:36 MDM - General Adult MDM Narrative: Medical decision making narrative: Discussed need to use magnesium citrate and fleets enemas to help stool move through increase fiber in diet keep increase fluids. Follow-up Dr. Brenner as scheduled Differential Diagnosis: Differential Diagnosis: Rule out small bowel obstruction free air diverticulitis Lab Data: Labs: Lab Results 07/28/20 07/28/20 07/28/20 Range/Units 07:55 08:00 08:00 WBC 9.7 (4.0-10.0) 10^3/ uL RBC 4.40 (4.1-5.3) 10^6/u L Hgb 12.6 (11.5-15.3) g/dL Hct 39.2 (37.0-47.0) % MCV 89.1 (81-99) fL MCH 28.6 (28.0-34.0) pg MCHC 32.1 (30.0-36.0) g/dL RDW 17.4 H (12.1-15.1) % Plt Count 283 (130-400) 10^3/c mm MPV 9.7 (7.4-10.4) fL Neut % (Auto) 66.1 % Lymph % (Auto) 12.7 % [place] % (Auto) 12.5 % Eos % (Auto) 6.6 % Baso % (Auto) 1.7 % Neut # (Auto) 6.41 (1.8-7.7) 10^3/u L Lymph # (Auto) 1.2 (0.8-4.8) 10^3/u L [place] # (Auto) 1.2 H (0.2-0.9) 10^3/u L Eos # (Auto) 0.6 (0.0-0.8) 10^3/u L Baso # (Auto) 0.2 H (0.0-0.1) 10^3/u L Nucleated RBC % (a uto) 0 % Nucleated RBCs # 0.0 /100WBC Sodium 135 L (136-145) mmol/L Potassium 3.8 (3.5-5.1) mmol/L Chloride 97 L (98-107) mmol/L Carbon Dioxide 26 (22-29) mmol/L Anion Gap 15.8 (5-19) BUN 12 (8-23) mg/dL Creatinine 0.6 (0.5-0.9) mg/dL GFR Calculation Not Reportable Glucose 128 H (65-115) mg/dL Calculated Osmolal ity 281 L (285-295) mOsm/k g Calcium 10.5 (8.5-10.5) mg/dL Total Bilirubin 0.4 (0.15-1.2) mg/dL AST 21 (0-32) U/L ALT 11 (0-33) U/L Alkaline Phosphata se 93 (35-105) IU/L Total Protein 6.9 (6.6-8.7) g/dL Albumin 4.0 (3.5-5.2) g/dL Globulin 2.9 (1.3-4.6) g/dL Urine Color Straw (Yellow) Urine Appearance Clear (CLEAR) Urine pH 5 (5-7) Ur Specific Gravit y 1.015 (1.005-1.030) Urine Protein Neg (Negative) Urine Glucose (UA) Norm (Normal) Urine Ketones Negative (Negative) Urine Blood Neg (Negative) Urine Nitrate Negative (Negative) Urine Bilirubin Neg (Negative) Urine Urobilinogen Norm (Negative) mg/dL Ur Leukocyte Aiyana ase 1+ H (Negative) Urine RBC None (0-2) /hpf Urine WBC 0-4 H (0-5) /hpf Ur Squamous Epith Cells Rare (0-5) /hpf Amorphous Sediment Not Reportable Urine Bacteria Trace (NONE) /hpf Discharge Plan Discharge Patient Disposition: Home Clinical Impression: Constipation Qualifiers: Constipation type: slow transit constipation Qualified Code(s): K59.01 - Slow transit constipation Condition: Stable Prescriptions: No Action aspirin 81 mg tablet,delayed release (DR/EC) 81 mg PO DAILY RF: 0 Hold Instructions: Resume on 04/20/20. Complete Multivitamin Tablet 1 tab PO DAILY RF: 0 calcium carbonate [Calcium 500] 500 mg calcium (1,250 mg) tablet 500 mg PO DAILY RF: 0 letrozole 2.5 mg tablet 2.5 mg PO DAILY RF: 0 Alphagan P 0.1 % drops 1 drop ophthalmic (eye) Q8H RF: 0 timolol 0.5 % drops 1 drop ophthalmic (eye) BID RF: 0 ICaps AREDS2 250 mg-200 unit -12.5 mg-1 mg capsule 1 cap PO BID RF: 0 Protonix 40 mg tablet,delayed release (DR/EC) 40 mg PO DAILY Qty: 90 RF: 3 hydrochlorothiazide 12.5 mg capsule 12.5 mg PO DAILY Qty: 90 RF: 3 meloxicam 15 mg tablet 15 mg PO DAILY Qty: 30 RF: 3 Hold Instructions: Resume on 04/20/20. simvastatin 20 mg tablet 20 mg PO DAILY Qty: 90 RF: 0 nifedipine 30 mg tablet extended release 30 mg PO DAILY Qty: 30 RF: 3 Ativan 1 mg Tablet 1 mg PO DAILY PRN (Reason: Nausea) RF: 0 Novolin R Flexpen 100 unit/mL (3 mL) Insulin Pen See Rx Instructions .ROUTE .COMPLEX RF: 0 hydrocodone-acetaminophen [[place]] 5-325 mg tablet 1 tab PO Q6H PRN (Reason: pain) Qty: 15 RF: 0 Discharge Orders: Discharge Order (Routine); Ordered 07/28/20 Ordered By: Lg Blackwell Referrals: Mahamed Cuba MD [Primary Care Provider] - Discharge Diet: As Directed and Full LIquid Discharge Activity: Resume usual activity Patient Instructions: Constipation (ED) Activity Restrictions/Additional Instructions: Follow-up with medical provider as directed. Use magnesium citrate and our fleets enemas as directed return to the ER or your medical provider if condition worsens. Please read and understand discharge instructions. If any questions ask please. Increase fluid in diet Discharge Date/Time: 07/28/20 09:34 Coding Level of Care Code ED Er Tech for Chg Fwd Exam Comprehensive
[2020-07-28 07:47] VITALS: BP 145/81; PULSE 73; RESP 18; O2SAT 95
[2020-07-28 08:16] LABS: Basophils # 0.2 10^3/uL (0.0-0.1); Basophils % 1.7 %; Eosinophils # 0.6 10^3/uL (0.0-0.8); Eosinophils % 6.6 %; Hematocrit 39.2 % (37.0-47.0); Hemoglobin 12.6 g/dL (11.5-15.3); Lymphocytes # 1.2 10^3/uL (0.8-4.8); Lymphocytes % 12.7 %; Mean Corpuscular HGB Conc 32.1 g/dL (30.0-36.0); Mean Corpuscular Hemoglobin 28.6 pg (28.0-34.0); Mean Corpuscular Volume 89.1 fL (81-99); Mean Platelet Volume 9.7 fL (7.4-10.4); Monocytes # 1.2 10^3/uL (0.2-0.9); Monocytes % 12.5 %; Neutrophils # 6.41 10^3/uL (1.8-7.7); Neutrophils % 66.1 %; Nucleated Red Blood Cells % 0 %; Platelet Count 283 10^3/cmm (130-400); Red Cell Distribution Width 17.4 % (12.1-15.1); White Blood Count 9.7 10^3/uL (4.0-10.0)
[2020-07-28] MEDS: iohexol 300 mg/mL 100 mL Btl IV (08:29)
[2020-07-28 08:31] LABS: Alanine Aminotransferase 11 U/L (0-33); Alkaline Phosphatase 93 IU/L (35-105); Anion Gap 15.8 (5-19); Aspartate Amino Transferase 21 U/L (0-32); Blood Urea Nitrogen 12 mg/dL (8-23); Calcium 10.5 mg/dL (8.5-10.5); Carbon Dioxide 26 mmol/L (22-29); Chloride 97 mmol/L (98-107); Globulin 2.9 g/dL (1.3-4.6); Glucose 128 mg/dL (65-115); Osmolality Calculated 281 mOsm/kg (285-295); Potassium 3.8 mmol/L (3.5-5.1); Sodium 135 mmol/L (136-145); Total Bilirubin 0.4 mg/dL (0.15-1.2); Total Protein 6.9 g/dL (6.6-8.7)
[2020-07-28 08:36] VITALS: BP 125/51; PULSE 77; RESP 18; O2SAT 98
[2020-07-28 08:48] LABS: Add Urine Microscopic? YES; Bilirubin Urine Neg (Negative); Blood Urine Neg (Negative); Glucose Urine UA Norm (Normal); Ketones Urine Negative (Negative); Leukocyte Esterase Urine 1+ (Negative); Nitrate Urine Negative (Negative); Protein Urine Neg (Negative); Specific Gravity, Urine 1.015 (1.005-1.030); Urine Appearance Clear (CLEAR); Urine Color Straw (Yellow); Urobilinogen Urine Norm (Negative); WBC Urine 0-4 /hpf (0-5); pH Urine 5 (5-7)
[2020-07-28 08:49] LABS: Add Urine Culture? No; Bacteria Urine TRACE /hpf; Squamous Epithelial Cell Urine RARE /hpf (0-5)
[2020-07-28] MEDS: ondansetron 4 MG Tablet PO (09:02)
== END 2020-07-28 09:34 | disposition home or self-care (01) ==
PROVIDERS: Emergency Provider Nurse Practitioner Family; PCP Internal Medicine
DX: K59.01 Slow transit constipation (principal); Z79.82 Long term (current) use of aspirin; Z85.3 Personal history of malignant neoplasm of breast; E78.5 Hyperlipidemia, unspecified; Z86.73 Personal history of transient ischemic attack (TIA), and cerebral infarction without residual deficits
CPT/HCPCS: 12345; 71045; 74177; 80053; 81001; 85025; 99283; Q0162; Q9967

== ENCOUNTER 2020-07-29 05:57 | Outpatient (RCR) | payer MEDICARE, OTHER, SELFPAY ==
--- NOTE | 2020-08-01 16:03 | ONC FU_ITS ---
Dr. Thompson follow up note Patient: Jenna Nye V Unit #: [id number]: 1945 Dicatated By: Carl Thompson M.D.Date of Visit:Jul 29, 2020 Onc Med Follow-up/Prog Note History of Present Illness: Mrs Nye is a 75 year old postmenopausal woman who underwent routine screening mammogram on 01/12/2014 and was found to have a suspicious 9.6 mm nodule at 3:00 position. Additional views and ultrasound was performed on 02/03/2014. It showed 2 small suspicious lesions at 3:00 -5 cm from the nipple and at 3:00 -3 cm from the nipple. The ultrasound-guided biopsy on 02/22/2014 showed mixed ductal and lobular infiltrating carcinoma, grade 2/3, involving both locations. Prognostic markers revealed ER 99%, OR 97%, HER-2 2+ by IHC, FISH ratio 1.08. On 03/08/2014 she underwent left axilla sentinel lymph node biopsy and left breast lumpectomy twice. Her pathology showed a residual invasive carcinoma with extensive component of DCIS. The largest invasive component measured 1.4 cm. Thus, stage IA, T1c, N0, M0. She required 2 additional surgeries on 03/22/2014 and on 04/05/2014 for positive margins. The Oncotype DX score is 16, low risk, no adjuvant chemotherapy was delivered. She completed 5040 cGy of radiation to the breast followed by boost on 08/02/14. She began on adjuvant Arimidex therapy in August of 2014. The treatment was complicated with persistent headaches and hot flashes. Her therapy was changed to Femara in September of 2014. MRI of the brain was negative for metastatic disease on 12/2/14. Baseline DEXA scan on 08/15/2014 was normal. She had taken Femara until 11-30-16 at which time it was placed on hold as well as the Effexor due to problems with night cao and worsening hot flashes as well as some joint pain. She was off the Femara and Effexor for a little over 4 weeks before she attempted to resume it. She has resumed it along with the Effexor and has tolerated it well. She completed her adjuvant hormonal therapy on 04/01/2020 As per patient in September 2019, she had 'bad' cough and mid chest pain, Went [place] [facility] [place] that time he was taught it could be due to esophageal infection, she was treated with antibiotics but her pain continued to progress especially after eating eventually, on 02/14/2020 she underwent EGD evaluation which showed gastric mass, biopsy was obtained which confirmed high-grade B-cell lymphoma, FISH to rule out Burkitt's was negative for IGH-MYC fusion ,t(8;14). Patient underwent CT PET scan on 02/24/2020 which showed hypermetabolic gastric wall thickening with questionable invasion into adjacent liver. No evidence of lavelle or additional extranodal disease. Echocardiogram done on May 10, 2020 showed ejection fraction 62%. Ms Nye tarted on systemic chemotherapy with R-CHOP on May 13, 2020. The current treatment plan is to give her [address] PET scanCame for follow-up, denies any specific complaint except generalized weakness and fatigue, as per patient on July 15, 2020 she was admitted to hospital with big knot on her left side of her head, as per patient she tripped over a stone in her garden and hit her head but denies any seizure-like activity denies any focal weakness before or after the fall. In emergency room CT scan of the head done showed no acute findings and carotid duplex study shows 70 to 99% stenosis bilaterally and CTA of the head and neck redemonstrated occlusive disease, patient was referred to Dr. Jonas as an outpatient also had 2D echocardiogram done which showed ejection fraction 60% patient was advised to continue with aspirin, as per patient she went to [facility] again recently on July 28, 2020 with abdominal pain and CT scan of abdomen pelvis was done which shows no acute intra-abdominal process, no free air but large amount of stool throughout large bowel. And nodular density left breast approximately 18 mm seen mammogram was done on July 12, 2020 did show left breast abnormality BI-RADS 4 for which she was referred for biopsy of lesion at 12:00 and 2 o'clock position in left breast. Patient denied any other complaints no nausea vomiting no indigestion, no mouth sores, no fever chills, no peripheral lymphadenopathy or abdominal fullness., No peripheral neuropathy, tolerating systemic chemotherapy with R-CHOP well., Patient was supposed to get CT PET scan after third cycle to assess disease response but her insurance is approving her PET scan for [facility] rather than locally, patient says she do not have arrangements to go to [place], as her has medical problems so he cannot drive her, patient was advised to ask her friends if able to drive to [place] for PET scan.. Medications: Acetaminophen 2 Capsule (of 500 mg) Oral PRN, Calcium 600/Vitamin D 1 (600-400 mg - Units) Tablet Oral b.i.d., Eye Drops 2 Drop(s) Solution Ophthalmic daily PRN, Femara 1 (2.5 mg) Tablet Oral daily, hydroCHLOROthiazide 1 Tablet (of 25 mg) Oral daily, Lisinopril 1 (30 mg) Tablet Oral b.i.d., Simvastatin 1 (20 mg) Tablet Oral daily, Venlafaxine HCl 1 (75 mg) Tablet Oral daily Allergies: Eggs Review of Systems: Constitutional - Her energy level is good. Appetite is good and weight is stable. No fever, chills, hot flashes, or night sweats, ENMT - She has sinus congestion/drainage. No mouth sores. No sore throat or difficulty swallowing, Hematologic/Lymphatic - No abnormal bruising or bleeding, Respiratory - No shortness of breath. She has a productive cough which produces white phlegm. No pleuritic pain or hemoptysis, Cardiovascular - No angina pain. No palpitations, Gastrointestinal - No nausea or vomiting. Occasional heartburn. No diarrhea or constipation. No blood in the stool or black stools, Genitourinary (F) - No dysuria and hematuria. No urinary frequency. No urgency or incontinence, Musculoskeletal - She has pain in her knees and hips, Integumentary - No chronic rashes, ulcerations or skin changes, Neurologic - No headache or dizziness. She has swelling and numbness in her hands during the night, Psychiatric - No anxiety. She has some depression. No insomnia. Vital Signs: Performed on Jul 29, 2020 10:00 Height - 62.00 in Weight - 136.0 lbs (LOW) BSA - 1.62 sq.m BMI - 24.87 Temperature - 98.0 F (LOW) Pulse - 80 /min Respiration - 24 /min BP - 124/68 mm(hg) O2 Sat - 98 % Pain - 0 Performance Status: 1 - No physically strenuous activity, but ambulatory and able to carry out light or sedentary work (e.g. office work, light house work). (ECOG) Physical Examination: Respiratory - Lungs are clear to auscultation, Cardiovascular - Regular rate and rhythm of heart, Gastrointestinal - Soft, bowel sounds present, Extremities - No visible edema. Lab/Imaging: Test performed on Jul 01, 2020 08:20 LDH (Total) 210 U/L Sodium 136 mmol/L Potassium 4.1 mmol/L Chloride 102 mmol/L CO2 26 mmol/L Anion Gap 12.1 BUN 12 mg/dL Creatinine 0.6 mg/dL Cr Clearance (Est) 86.2500 mL/min Glucose 151 mg/dL Calcium 9.3 mg/dL Protein, Total 6.2 g/dL Albumin 3.4 g/dL Globulin 2.8 g/dL Bilirubin, Total 0.3 mg/dL ALT (SGPT) 8 U/L AST (SGOT) 14 U/L Alkaline Phosphatase 63 IU/L Test performed on May 10, 2020 07:20 WBC 10.9 10 3/uL RBC 4.48 10 6/uL HGB 13.0 g/dL HCT 40.7 % MCV 90.8 fL MCH 29.0 pg MCHC 31.9 g/dL RDW 14.1 % Platelet Count 307 10 3/cmm MPV 10.4 fL Neutrophils 5.64 10 3/uL Lymphocytes 3.3 10 3/uL Monocytes 1.2 10 3/uL Eosinophils 0.6 10 3/uL Basophils 0.2 10 3/uL Neutrophil % 51.7 % Lymphocyte % 30.1 % Monocyte % 10.7 % Eosinophil % 5.5 % Basophils % 1.7 % NRBC % 0 % Impression: 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 There is loss of fat plane between posterior left hepatic lobe and invasion cannot be excluded. No evidence of lavelle or additional extranodal disease. 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 The Oncotype DX score is 16, corresponding to about 10% risk of 10 year recurrence after completion of hormonal therapy. She completed adjuvant radiation on 08/02/14. She is a candidate hormonal therapy with aromatase inhibitors for 5 years, Arimidex at 1 mg daily was recommended. The side effects of the treatment include worsening arthralgias and accelerated bone density loss amongst others. Arimidex therapy began in August of 2014, thus far complicated with significant debilitating headaches and hot flashes. Treatment was changed to Femara, headaches resolved. Hot flashes resolved with Effexor. She is doing well. She had a hip replacement in 2016. She remains on Femara and Effexor. Mrs Nye presents today with concerns of persistent left breast pain for at least 2 weeks. Her CA 27-29 was mildly elevated at her December 2017 visit .Bilateral mammogram done on 04/21/2018 showed BI-RADS 2 benign Plan: 1.Discussed with patient regarding her question and concerned, patient was advised to get CT PET scan done, as far as gastric lymphoma is concerned, as patient has completed 3 cycles of chemo with R-CHOP and if her CT PET scan shows complete remission, then will send her to radiation oncology for involved field radiation, patient declined radiation therapy then will complete 6 cycles of chemotherapy with R-CHOP. As far as carotid artery disease concern patient is scheduled see Dr. Jonas and as far as the left breast abnormal mammogram is concerned, she has been scheduled for left breast biopsy. Patient return to clinic after CT PET scan for further discussion. Signed By: Carl Thompson M.D. <<Signature on File>>
== END 2020-07-31 23:59 | disposition home or self-care (01) ==
LOC: ONCMED 05:57
PROVIDERS: PCP Internal Medicine; Visit Provider Internal Medicine Hematology & Oncology
DX: C85.99 Non-Hodgkin lymphoma, unspecified, extranodal and solid organ sites (principal); C50.412 Malignant neoplasm of upper-outer quadrant of left female breast; Z17.0 Estrogen receptor positive status [ER+]; N64.4 Mastodynia; Z79.811 Long term (current) use of aromatase inhibitors; Z79.899 Other long term (current) drug therapy; Z92.3 Personal history of irradiation; Z92.21 Personal history of antineoplastic chemotherapy
CPT/HCPCS: 99214

== ENCOUNTER 2020-08-07 13:00 | Outpatient (RCR) | payer MEDICARE, OTHER, SELFPAY ==
--- NOTE | 2020-08-07 12:20 | US_ITS ---
WS: [id number] ULTRASOUND-GUIDED LEFT BREAST BIOPSY CLINICAL INFORMATION: BREAST CANCER FINDINGS: The procedure including risks, benefits, and complications were discussed with the patient who agreed to proceed. Using sterile technique patient was prepped and draped in the usual sterile fashion. Aft er 1% lidocaine utilizing real-time ultrasound guidance 5 14-gauge cores were obtained of the left br east lesion at the 12 o'clock position. Subsequently a titanium clip was placed in the biopsy cavity. Additional biopsies and clip placement was performed of the lesions at the 12:00 position 5 cm from t he nipple, 2:00 position 4 cm from the nipple, 1:00 position 3 cm from the nipple, scar site #1 at th e 3:00 position, and scar site #2 at the 3:00 position. 14-gauge cores were obtained of these lesions with titanium clip placement PATHOLOGY DEMONSTRATES: A. Breast, left, mass, 12:00, 5 cm, biopsy: -Benign fibroadipose tissue with fat necrosis, treatment-related changes and cicatrix. -No malignancy identified. B. Breast, left, mass, 1:00, 3 cm, biopsy: -Benign fibroadipose tissue with fat necrosis, treatment-related changes and cicatrix. -No malignancy identified. C. Breast, left, mass, 2:00, 4 cm, biopsy: -Benign fibroadipose tissue with fat necrosis, treatment-related changes and cicatrix. -No malignancy identified. D. Breast, left, breast scar site #1 , biopsy: -Benign fibroadipose tissue with fat necrosis, treatment-related changes and cicatrix. -No malignancy identified. E. Breast, left, breast scar site #2 , biopsy: -Benign fibroadipose tissue with fat necrosis, treatment-related changes and cicatrix. -No malignancy identified. Immunohistochemical stains were performed on block A, B, C, D and E to rule out any residual malignan cy. No malignancy was identified. US/[id number] IMPRESSION: 1. Uncomplicated ultrasound-guided left breast biopsy of 5 different locations 2. The pathology demonstrates benign fibroadipose tissue with fat necrosis and treatment-related changes at all five biopsy sites. No malignancy identified. 3. Recommend 6 month follow-up bilateral diagnostic mammography and bilateral ultrasound. Ultrasound left breast at the biopsy area. Ultrasound right breast of the previously described asymmetric parenchymal density with calcification a t the 12:00 position right breast BI-RADS: 2-Benign FOLLOW UP: 6 Month Follow-up RECOMMEND 6 MONTH BILATERAL DIAGNOSTIC MAMMOGRAPHY AND BILATERAL BREAST ULTRASO UND TO CONFIRM STABILITY OF THE ABOVE-DESCRIBED LESIONS
[2020-08-07 13:21] LABS: INR 1.06 (0.8-1.2)
--- NOTE | 2020-08-21 08:54 | ONC FU_ITS ---
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 History of Present Illness: Mrs Nye is a 75 year old postmenopausal woman who underwent routine screening mammogram on 01/12/2014 and was found to have a suspicious 9.6 mm nodule at 3:00 position. Additional views and ultrasound was performed on 02/03/2014. It showed 2 small suspicious lesions at 3:00 -5 cm from the nipple and at 3:00 -3 cm from the nipple. The ultrasound-guided biopsy on 02/22/2014 showed mixed ductal and lobular infiltrating carcinoma, grade 2/3, involving both locations. Prognostic markers revealed ER 99%, PA 97%, HER-2 2+ by IHC, FISH ratio 1.08. On 03/08/2014 she underwent left axilla sentinel lymph node biopsy and left breast lumpectomy twice. Her pathology showed a residual invasive carcinoma with extensive component of DCIS. The largest invasive component measured 1.4 cm. Thus, stage IA, T1c, N0, M0. She required 2 additional surgeries on 03/22/2014 and on 04/05/2014 for positive margins. The Oncotype DX score is 16, low risk, no adjuvant chemotherapy was delivered. She completed 5040 cGy of radiation to the breast followed by boost on 08/02/14. She began on adjuvant Arimidex therapy in August of 2014. The treatment was complicated with persistent headaches and hot flashes. Her therapy was changed to Femara in September of 2014. MRI of the brain was negative for metastatic disease on 10/02/14. Baseline DEXA scan on 08/15/2014 was normal. She had taken Femara until 11-30-16 at which time it was placed on hold as well as the Effexor due to problems with night cao and worsening hot flashes as well as some joint pain. She was off the Femara and Effexor for a little over 4 weeks before she attempted to resume it. She has resumed it along with the Effexor and has tolerated it well. She completed her adjuvant hormonal therapy on 04/01/2020 As per patient in September 2019, she had 'bad' cough and mid chest pain, Went to [facility] ER at that time he was taught it could be due to esophageal infection, she was treated with antibiotics but her pain continued to progress especially after eating eventually, on 02/14/2020 she underwent EGD evaluation which showed gastric mass, biopsy was obtained which confirmed high-grade B-cell lymphoma, FISH to rule out Burkitt's was negative for IGH-MYC fusion ,t(8;14). Patient underwent CT PET scan on 02/24/2020 which showed hypermetabolic gastric wall thickening with questionable invasion into adjacent liver. No evidence of lavelle or additional extranodal disease. Echocardiogram done on May 10, 2020 showed ejection fraction 62%. Ms Nye tarted on systemic chemotherapy with R-CHOP on May 13, 2020. The current treatment plan is to give her [address] PET scanCame for follow-up, denies any specific complaint except generalized weakness and fatigue, as per patient on July 15, 2020 she was admitted to hospital with big knot on her left side of her head, as per patient she tripped over a stone in her garden and hit her head but denies any seizure-like activity denies any focal weakness before or after the fall. In emergency room CT scan of the head done showed no acute findings and carotid duplex study shows 70 to 99% stenosis bilaterally and CTA of the head and neck redemonstrated occlusive disease, patient was referred to Dr. Jonas as an outpatient also had 2D echocardiogram done which showed ejection fraction 60% patient was advised to continue with aspirin, as per patient she went to [facility] ER again recently on July 28, 2020 with abdominal pain and CT scan of abdomen pelvis was done which shows no acute intra-abdominal process, no free air but large amount of stool throughout large bowel. And nodular density left breast approximately 18 mm seen mammogram was done on July 12, 2020 did show left breast abnormality BI-RADS 4 for which she was referred for biopsy of lesion at 12:00 and 2 o'clock position in left breast. Mrs. Nye underwent ultrasound-guided left breast biopsy on 08/07/2020. She had biopsy of the left breast mass at the 12 o'clock position which reported as benign fibroadipose tissue no malignancy identified. Left breast mass biopsy at 1:00 with benign fibroadipose tissue no malignancy identified. Left breast biopsy 2 o'clock position: benign fibroadipose tissue no malignancy identified. Breast scar site #1 left breast: benign fibroadipose tissue with no malignancy identified. Left breast breast scar site #2 : Benign fibroadipose tissue with no malignancy identified. Immunohistochemical stains were performed on the sites as above to rule out any residual malignancy. No malignancy was identified. A 6-month follow-up with bilateral diagnostic mammography and bilateral ultrasound was recommended. Follow-up PET/CT was obtained on August 15, 2020 per [facility]ie in [place] (due to insurance requirements). The impression was no hypermetabolic lymph nodes are seen to suggest metabolically active disease. Right breast nodule lesion shows hypermetabolic activity raises concern for primary breast carcinoma . The left breast has foci that show metabolic uptake as well. Bilateral mammogram ultrasound correlation is recommended. Groundglass right lower lobe focus measuring 7 mm shows only mild uptake below that of the mediastinal blood pool and favors an infectious/inflammatory entity. Precautionary follow-up CT in 3 months is recommended to document stability of or persistence given that this lesion is technically below PET CT size evaluation threshold . Mrs. Nye is here today for followup and discussion of her recent left breast biopy. from 08/06/2020 and PET/CT from 08/15/2020. She states she is feeling much better since eing off chemotherapy. Her appetite comes and goes but is slowly improving. She denies any fever or chills. She denies any new nodules/lymph nodes. She denies any trouble swallowing or new shortness of breath. She does have mouth sores on her upper and lower lip on the left side. She states they have been there for several days and are not improving. There are no oral lesions. She states that she has been in the emergency room and admitted overnight on 08/17/2020 (discharged on 08/18/2020) for what she says was nasal drainage that made her cough that made her choke and then her whole body went numb. She had work-up in the ER with no specific results found???she did not have a barium swallow as recommended. She did have endoscopy which she states reported hiatal hernia. She has had no recurrence of the symptoms. She continues to have nasal drainage that is clear and cough because of the drainage. She is not taking anything for the drainage or cough. She denies any nausea or vomiting. She has had no lower extremity edema. She states her bowels and bladder are normal for her. She is doing a few things around the house but tires easily. Her ECOG is 1. Past Medical History: Diabetes type II (diet controlled) Diverticulosis Hypertension Osteoarthritis (cervical spine) Past Surgical History: Cholecystectomy Hysterectomy Right Total Hip Arthroplasty in 2015 Colonoscopy in 2013 Allergies: Eggs Medications: Acetaminophen 2 Capsule (of 500 mg) Oral PRN Calcium 600/Vitamin D 1 (600-400 mg - Units) Tablet Oral b.i.d. Eye Drops 2 Drop(s) Solution Ophthalmic daily PRN Femara 1 (2.5 mg) Tablet Oral daily hydroCHLOROthiazide 1 Tablet (of 25 mg) Oral daily Lisinopril 1 (30 mg) Tablet Oral b.i.d. Simvastatin 1 (20 mg) Tablet Oral daily Venlafaxine HCl 1 (75 mg) Tablet Oral daily Family History: Ms. Nye's mother at age 69: cancer history consists of cancer. Ms. Nye's father at age 72: coronary artery disease. Social History: Ms. Nye is and she is retired. Ms. Nye has never smoked. She has no history of drinking. Ms. Nye reports the following support systems: lives with spouse, significant other, family, or friends, lives in own house, supportive family/friends willing to assist with needs, and adequate transportation available for expected visits. Her diet consists of regular meals. She indicates her activity level as: daily activities. Review Of Symptoms: Constitutional Denies fevers, chills. Occasional night sweats, Mild fatigue. Alopecia. Eyes Denies significant visual changes. ENMT Denies changes in hearing, sore throat. Has sores on her lip and nasal drainage-see above. Endocrine No diabetes, thyroid disease or hormone replacement. Denies hot flashes or night sweats. Hematologic/Lymphatic Denies easy bleeding. The patient denies any tender or palpable lymph nodes. Easy bruising-chronic. Breasts no concerns Respiratory Denies dyspnea on exertion, chest pain. She does have intermittent cough related to sinus/nasal drainage. Cardiovascular Denies anginal chest pain. Gastrointestinal Denies nausea, vomiting, diarrhea, or constipation. Genitourinary (F) No hematuria, hesitancy, incontinence, vaginal bleeding, discharge or other problems with urination. Musculoskeletal Occasional right hip pain-chronic and controlled with OTC pain meds.. Integumentary Denies chronic rashes, inflammation, ulcerations or skin changes. Neurologic Denies headache, blurred vision, and no areas of focal weakness or numbness. Psychiatric Denies depression, anxiety. Vital Signs: Performed on Aug 20, 2020 11:31 Height - 62.00 in Weight - 135.8 lbs (LOW) BSA - 1.62 sq.m BMI - 24.84 Temperature - 97.8 F (LOW) Pulse - 58 /min (LOW) Respiration - 18 /min BP - 127/57 mm(hg) O2 Sat - 98 % Pain - 0,2 - Ambulatory/capable of all self-care, unable to perform any work activities. Up and about more than 50% of waking hours. (ECOG) Physical Examination: Constitutional Alert, oriented, no acute distress. Skin pink, warm and dry. Alopecia of scalp, eyebrows and partial eye lashes. Head Normocephalic; atraumatic. Eyes Conjunctivae and sclerae are clear and without icterus. Pupils are reactive and equal. ENMT herpetic lesion on upper and lower lip-right side. 6 mm, non draining. Neck Supple without masses or thyromegaly. No jugular venous distension. Respiratory Lungs are clear to auscultation without rhonchi or wheezing. Cardiovascular Regular rate and rhythm of heart without murmurs,clicks, gallops or rubs. Back/Spine Non-tender to palpation. Extremities No visible deformities, no cyanosis, clubbing or edema. Musculoskeletal No tenderness or swelling, normal range of motion without obvious weakness. Integumentary No rashes or lesions. Neurologic No sensory or motor deficits, normal cerebellar function, normal gait. Psychiatric Alert and oriented times three. Coherent speech. Verbalizes understanding of our discussions today. Laboratory:Test performed on Aug 20, 2020 09:52 Sodium 133 mmol/L Potassium 3.5 mmol/L Chloride 95 mmol/L CO2 27 mmol/L Anion Gap 14.5 BUN 12 mg/dL Creatinine 0.6 mg/dL Cr Clearance (Est) 76.36 mL/min Glucose 139 mg/dL Osmolality - Calculated 278 mOsm/kg Calcium 9.7 mg/dL Protein, Total 6.8 g/dL Albumin 4.2 g/dL Globulin 2.6 g/dL Bilirubin, Total 0.4 mg/dL ALT (SGPT) 11 U/L AST (SGOT) 20 U/L Alkaline Phosphatase 85 IU/L WBC 8.6 10 3/uL RBC 3.97 10 6/uL HGB 11.5 g/dL HCT 35.1 % MCV 88.4 fL MCH 29.0 pg MCHC 32.8 g/dL RDW 16.3 % Platelet Count 227 10 3/cmm MPV 9.1 fL Neutrophils 6.13 10 3/uL Lymphocytes 1.1 10 3/uL Monocytes 0.9 10 3/uL Eosinophils 0.3 10 3/uL Basophils 0.1 10 3/uL Neutrophil % 71.5 % Lymphocyte % 13.1 % Monocyte % 11.0 % Eosinophil % 3.3 % Basophils % 0.9 % NRBC % 0 % Test performed on Jul 01, 2020 08:20 LDH (Total) 210 U/L Impression: 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 There is loss of fat plane between posterior left hepatic lobe and invasion cannot be excluded. No evidence of lavelle or additional extranodal disease. 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 The Oncotype DX score is 16, corresponding to about 10% risk of 10 year recurrence after completion of hormonal therapy. She completed adjuvant radiation on 08/02/14. She was a candidate hormonal therapy with aromatase inhibitors for 5 years, Arimidex at 1 mg daily was recommended. The side effects of the treatment include worsening arthralgias and accelerated bone density loss amongst others. Arimidex therapy began in August of 2014, thus far complicated with significant debilitating headaches and hot flashes. Treatment was changed to Femara, headaches resolved. Hot flashes resolved with Effexor. She is doing well. She had a hip replacement in 2017. She remains on Femara and Effexor. Mrs Nye presented on June 24, 2020 with concerns of persistent left breast pain for at least 2 weeks. A bilateral diagnostic mammogram was obtained on 07/01/2020 and was found to be abnormal. She had additional views on 07/12/2020 which reported RIGHT breast soft tissues masses at the 12:00 position and the largest area measured 4.1 x 6.2 x 4.6 cm. The LEFT breast was found to have multiple abnormalities identified by ultrasound. The largest near the scar site was measuring 3 cm x 0.7 x 1.5 cm. Ultrasound guided biopsy was then recommended. She underwent ultrasound-guided breast biopsy on 08/06/2020 with 5 specimens obtained from the 12:00, 1:00 and 2:00 and all 5 were negative for malignancy. The right breast was not biopsied. She underwent follow-up PET/CT on 08/15/2020 at [facility]. This reports a complete response to chemotherapy. There was no hypermetabolic lymph nodes seen to suggest metabolically active disease. Right breast nodular lesion shows hypermetabolic activity and raises concern for primary breast carcinoma . These results were discussed with Mr & Mrs Nye and a copy of the report was given to them. Plan: 1. PET/CT from 08/15/2020 shows complete response after Mrs Nye completed 3 cycles of chemo with R-CHOP. Per Dr Thompson's 07/29/[address] PET scan shows complete remission, then will send her to radiation oncology for involved field radiation . If she declined radiation therapy then it would be recommended that she complete 6 cycles of chemotherapy with R-CHOP. Mrs Nye was adamant that she did not want any further chemotherapy due to side effects. She has agreed to see Dr Renee in radiation oncology ([facility]). 2. FAmvir 500 mg TID for mouth sores sent to [facility] 3. Claritin and Tussin/Delsym prn for nasal drainage and cough. 4. Labs from today were reviewed in detail discussed with Mrs. Nye and a copy was given to her. WBC 8.6, hemoglobin 11.5, platelets 227,000 ANC is 6130. Creatinine 0.6 random glucose 139 LFTs are normal. 5. Referral to radiation oncology for consideration of treatment to the involved field of the lymphoma (gastric mucosal thickening of the body and antrum of the stomach per 02/24/[address] See Dr. Thompson's note from 07/29/2020 for further details. 6. Followup with Dr Thompson in 4 weeks with CBC, CMP and LDH for post chemotherapy and to followup on RIGHT breast abnormality on mammo and PET/CT. 7. Ms. Nye was instructed to contact us in the interim should questions or problems arise. Signed By: Michael Garrison-, AOCNP Carl Thompson MD <<Signature on File>>
--- NOTE | 2020-08-26 14:37 | N.ONRAD NP_ITS ---
Radiation Oncology New Patient Visit Patient: Jenna Nye MR#: [id number] : 1945> Age: 75> Sex: Female> Dictated by: Dr. Vishnu Renee Date of Service: 08/26/2020 Referring Physician(s) : Dr. 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 One close DCIS margin, otherwise negative margins for invasive carcinoma. Treatment rendered: Non-Hodgkin's lymphoma: 3 cycles of R-CHOP with a resultant complete [place] PET/CT response of 1 (08/15/2020) Left breast: Lumpectomy and sentinel lymph node biopsy, followed by radiation therapy to an aggregate dose of 50.4 Gy/28 fx to the entire left breast and a 9 Gy/5 fx lumpectomy cavity boost (05/28/2014 - 07/03/2014), followed by endocrine therapy. On 08/08/2020, left breast mass biopsies at the 12:00, 1:00, 2:00, and 3:00 positions revealed benign findings. Purpose of Visit: Discuss the role of consolidative involved site radiation therapy to the stomach after 3 cycles of chemotherapy. History of Present Illness: The patient is a 75-year-old female who has a prior history of left breast cancer and a newly diagnosed non-Hodgkin's lymphoma. On 11/23/2019 the patient was seen in the emergency room secondary to chest pain which she believed was from her hiatal hernia. During work-up for chest pain, a subsequent CT angiogram of the chest abdomen and pelvis (11/23/2019) revealed severe thickening of the gastric body and gastric antrum. On 02/13/2020, the patient followed up with Dr. Cuba complaining of symptoms consistent with dyspepsia unresponsive to Protonix medication. The patient subsequently underwent an upper endoscopy (02/13/[address] Cuba) which revealed a nonobstructing large sized, friable, fungating, ulcerated, infiltrative mass at the gastric incisura. No abnormalities were appreciated in the duodenum. Biopsy of this mass was completed and pathology revealed high-grade B-cell lymphoma, yet Burkitt lymphoma could not be excluded. On 02/24/2020, a PET/CT was completed revealing an FDG avid gastric mass with mural thickening of the gastric body and antrum and questionable invasion into the adjacent liver due to an apparent loss of fat plane. There was no further radiographic evidence of malignant disease in the study. On 02/26/2020, Dr Cuba performed a repeat upper endoscopy and repeat cold biopsy of the gastric fundal mass for further pathologic analysis. Pathology revealed B-cell lymphoma with germinal center phenotype. Further FISH analysis was negative for BCL6 (3q27), MYC (8q24) rearrangements and for translocation (14; 18) (IGH-BCL2). H pylori was negative. Flow cytometric studies on the fundal mass demonstrated monotypic B-cell population with a germinal center phenotype. The patient was then treated with 3 cycles of R-CHOP (Dr. Thompson 05/13/2020 -07/29/2020) and the posttreatment PET/CT (08/15/2020) revealed complete resolution of FDG avidity. In consultation today, the patient reports that she had a difficult time with chemotherapy and she is reluctant to consider additional courses of chemotherapy if it can be avoided. She reports resolving fatigue and nausea/vomiting. In addition, she reports progressive burning on urination. Her last urinalysis completed approximately 1.5 weeks ago was negative for a urinary tract infection. Imaging Review: I reviewed the radiographic images discussed above. Current Medications: Acetaminophen, acetaminophen, calcium 600/Vitamin D, cyclophosphamide, dexamethasone Sodium Phosphate, diphenhydrAMINE HCl, dOXOrubicin HCl, emend, eye Drops, famciclovir, femara, femara, hydroCHLOROthiazide, lisinopril, lORazepam, neulasta, palonosetron HCl, predniSONE, prochlorperazine Maleate, riTUXimab, simvastatin, simvastatin, sodium Chloride, venlafaxine HCl, venlafaxine HCl, vinCRIStine Sulfate. Allergies: Eggs and Paper tape. Medical History: - Diabetes type II (diet controlled) , - diverticulosis, - hypertension, - osteoarthritis (cervical spine) . No history of collagen vascular disease. No previous radiation therapy. Surgical History: Cholecystectomy, colonoscopy on 11/24/2013, hysterectomy and right Total Hip Arthroplasty on 01/14/2016. Family History: Father is at age 72 having experienced coronary artery disease. Mother is at age 69 having experienced Cancer history consists of cancer. Social History: Last screened on 08/26/2020 - Never smoked. Last screened on 08/26/2020 - Never drank. Patient indicated access to the following support systems: Adequate transportation available for expected visits, Lives in own house, Lives with spouse, significant other, family, or friends, and Supportive family/friends willing to assist with needs. Patient indicated the following nutritional habits: Regular meals. Patient indicated participation in the following forms of activity: Daily activities. Current Complaints / Review of Systems: Constitutional - Complains of a poor appetite. Complains of mild fatigue. Complains of change in weight in which she has lost about 20 lbs. since April 20. Denies fever and night sweats. Eyes - Denies blurred vision and double vision. ENMT - Complains of dysphagia occasionally, mouth dryness, stomatitis and altered taste. Denies ear pain and tinnitus. Neck - Complains of neck pain which has occured recently. Denies decreased range of motion. Integumentary - Complains of rash around the mouth. Breasts - Denies pain. Cardiovascular - Denies arrhythmias, chest pain and edema. Respiratory - Complains of a severe cough which is productive and the color of the sputum is clear. Denies dyspnea, hemoptysis and wheezing. Gastrointestinal - Complains of abdominal pain that is intermittent located in the lower abdomen. Complains of persistent diarrhea which is characterized as loose, semisolid. Complains of nausea. Complains of satiety. Denies constipation, heartburn / dyspepsia, melena / GI bleeding and vomiting. Genitourinary (F) - Complains of frequency, nocturia get up about 4 times per night and urgency. Denies dysuria, vaginal discharge / bleeding and vaginal spotting. Musculoskeletal - Complains of bone pain right lower leg. Complains of joint pain left hip occasionally. Complains of generalized muscle weakness. Neurologic - Complains of frequent dizziness which occurs with coughing. Complains of headaches occasionally. Denies abnormal gait. Endocrine - Denies diabetes and thyroid disease. Hematologic/Lymphatic - Complains of tender or enlarged lymph nodes.. Vital Signs: Performed on 08/26/2020 9:09 AM BMI - 24.363 kg/m2 (high), Height - 62.00 in, Weight - 133.2 lbs, Temperature - 97.7 f, Pulse - 55, Respiration - 18, O2 Sat - 98 %, Pain - 0 and BP - 139/ 66 mm(hg). Physical Exam: GENERAL:??? The patient is alert, and in no acute distress. HEENT:??? Head is normocephalic. Face is symmetric. External ocular movements are intact. Sclera and conjunctivae are non erythematous. NECK:??? Trachea is midline.??? Thyroid is not enlarged by palpation.??? LYMPH NODES:??? There is no cervical or supraclavicular adenopathy bilaterally. LUNGS:??? Clear to auscultation bilaterally. Respiratory movement is unlabored. HEART:??? Regular rate and rhythm. EXTREMITIES:??? No deformities. Abdomen: Bowel sounds are normal, there is no tenderness to deep palpation in all 4 quadrants. NEUROLOGIC:??? Gait and station are normal.??? The patient is well coordinated and strength is equal bilaterally. GREASE MAN:??? Cranial nerves II-XII are intact and without focal deficits.??? Psych: Affect is normal. Skin: Cursory review of the skin reveals no obvious lesions concerning for malignancy. Pain assessment: This patient???s pain was personally assessed by me. This patient requires no adjustments to pain medications at this time. Performance Status: 1 - No physically strenuous activity, but ambulatory and able to carry out light or sedentary work (e.g. office work, light house work). (ECOG) Pathology: Primary, c85.99 - non-hodgkin lymphoma, unspecified, extranodal and solid organ sites, Diagnosed 03/19/2020 (active), Primary, z17.0 - estrogen receptor positive status [er+], Diagnosed 12/28/2016 (active), Primary, c50.412 - malignant neoplasm of upper-outer quadrant of left female breast, Diagnosed 12/28/2016 (active), Primary, 174.4 - malignant neoplasm of upper-outer quadrant of female breast, Diagnosed 03/02/2014 (active) stage ia, t1c, n0, m0, g2 and Secondary, z79.811 - manager terminal (current) use of aromatase inhibitors, Diagnosed 09/10/2014 (active). Lab: Test performed on 08/20/2020 9:52 AM RBC - 3.97 10 6/ul (low), HCT - 35.1 % (low), RDW - 16.3 % (high), Sodium - 133 mmol/l (low), Chloride - 95 mmol/l (low), Glucose - 139 mg/dl (high) and Osmolality - Calculated - 278 mosm/kg (low). 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 She has been treated with 3 cycles of R-CHOP with a resultant [place] complete response of 1 per PET/CT (08/15/2020 vs 02/24/2020). The patient has declined further chemotherapy and thus involved site consolidative radiation therapy of 36 Gy/18 fractions is reasonable. Plan: We will begin treatment planning tomorrow morning, and the patient has been instructed to have an empty stomach for simulation and for each radiation treatment. We discussed potential acute and late side effects in detail, and the patient has agreed to proceed as recommended. Urinalysis plus or minus culture and sensitivity was ordered today. If positive, we will treat for a urinary tract infection (i.e., Cipro 500 mg ER Q24 hr x 7-10 days). Results of the urine analysis should be completed by tomorrow. Signed by Vishnu Renee MD: 08/26/2020 2:36:42 PM <<Signature on File>> Time spent with patient: CPT Code: CPT Code:
== END 2020-08-12 01:00 | disposition home or self-care (01) ==
LOC: ONCMED 13:00
PROVIDERS: PCP Internal Medicine; Visit Provider Internal Medicine Hematology & Oncology
DX: Z01.812 Encounter for preprocedural laboratory examination (principal); N60.22 Fibroadenosis of left breast; N64.1 Fat necrosis of breast; R92.8 Other abnormal and inconclusive findings on diagnostic imaging of breast; Z85.3 Personal history of malignant neoplasm of breast
CPT/HCPCS: 19083; 19084; 36591; 85610; 88305; J2704; J3010

== ENCOUNTER 2020-08-11 21:30 | Emergency (ER) | payer MEDICARE, OTHER, SELFPAY ==
[2020-08-11 21:36] VITALS: BP 161/73; PULSE 69; RESP 24; TEMP 36.7; O2SAT 100; BMI 24.7
--- NOTE | 2020-08-11 22:06 | XRR_ITS ---
PROCEDURE INFORMATION: Exam: XR Chest, 1 View Exam date and time: 08/11/2020 10:52 PM Age: 75 years old Clinical indication: Dyspnea; Prior surgery; Surgery type: Chest port TECHNIQUE: Imaging protocol: XR of the chest Views: 1 view. COMPARISON: CR (CHEST, ) 07/28/2020 7:59 AM FINDINGS: Tubes, catheters and devices: Yemyoh-O-Xpzs vascular catheter tip remains at the superior vena cava. Lungs: Interstitial thickening/coarsening. Pleural space: Unremarkable. No pleural effusion. No pneumothorax. Heart/Mediastinum: Stable heart size. Bones/joints: Degenerative change of the spine. Osteopenia. XR/XR chest 1V portable [id number] IMPRESSION: 1. Chronic interstitial thickening.
--- NOTE | 2020-08-11 22:29 | ECG_ITS ---
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 Measurements Intervals [place] Rate: 60 P: 29 OR: 206 QRS: -5 QRSD: 81 T: -5 QT: 389 QTc: 391 Interpretive Statements SINUS RHYTHM WITH OCCASIONAL VENTRICULAR PREMATURE COMPLEXES Compared to ECG 07/15/2020 01:34:22 Ventricular premature complex(es) now present Sinus tachycardia no longer present Electronically Signed On 08-12-2020 19:59:02 CDT by Mirtha Page M.D. [email or web address]
--- NOTE | 2020-08-11 23:08 | W.ED.GENADLT ---
HPI - General Adult General: Chief complaint: Airway/Esophagus Foreign Body Stated complaint: trouble breathing/says knot in throat Time Seen by Provider: 08/11/20 22:24 Source: patient and family Mode of arrival: ambulatory Limitations: no limitations History of Present Illness: HPI narrative: Mrs. Nye is a very nice 75-year-old female who comes in complaining of a knot or discomfort at the bottom of her neck. She denies chest pain or shortness of breath. She has no nausea or vomiting, no diaphoresis and no radiation of her discomfort. She is able to swallow foods and liquids but states it is uncomfortable when she does so. She states her symptoms been going on for several days but for the past 2 days they have been coming more intense. When asking where her neck hurts she points to just above the top of her sternum in the manubrial notch. Patient denies any swellings in this area. There is been no skin changes. Patient denies having a thing like this before. She is unaware of anything that makes her symptoms better or worse. 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 status post radiation therapy and hormonal therapy, currently on Femara Hyperlipidemia 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 disc disorder 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 region half-way (current) use of opiate analgesic Lumbar stenosis without neurogenic claudication Pain management contract signed Port-A-Cath in place 04/16/20 Spondylolisthesis of cervical region 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 (cerebrum) Hx of stroke in February 07, 2019 Surgical History H/O total hip arthroplasty History of cholecystectomy History of hysterectomy Social History Smoking and tobacco status: never smoked Alcohol intake: never Lives independently: Yes Household members: spouse Marital status: Current occupational status: retired History of recent travel: No Physical Exam Const: COMMON NORMALS: no acute distress, patient oriented x3, no limitations and alert GENERAL APPEARANCE: cooperative HENMT: COMMON NORMALS: normocephalic, atraumatic, external ears normal, EAC's normal and Normal external nose present HEAD & SCALP: normal to inspection, normocephalic and atraumatic FACE & SINUS: normal facial exam and face symmetric NOSE: Normal external nose present and Normal nares present EXTERNAL EAR: Yes external ears normal EXTERNAL AUDITORY CANAL: EAC's normal MOUTH: Normal oral and palatal mucosa present, lip normal and tongue normal Eye: COMMON NORMALS: Equal, round and reactive pupils present and conjunctivae normal GENERAL EYE: appearance normal, both eyes and all related structures ALIGNMENT: Yes alignment normal PERIORBITAL: periorbital findings normal EYELID: eyelids normal CONJUNCTIVA: Yes conjunctivae normal SCLERA: sclerae normal PUPIL: Yes Equal, round and reactive pupils present Neck/C-Spine: COMMON NORMALS: full ROM, no lymphadenopathy, supple, no meningeal signs and no JVD GENERAL: Yes normal visual inspection and Yes trachea midline Chest: COMMONS NORMALS: normal inspection of the chest and normal palpation of entire chest wall Resp: COMMON NORMALS: normal respiratory effort, No retractions, No use of accessory muscles and clear to auscultation bilaterally EFFORT & INSPECTION: Yes able to speak in complete sentences and Yes symmetric chest movement AUSCULTATION: clear to auscultation bilaterally, no crackles, no rales, no rhonchi and no wheezes Cardio: COMMON NORMALS: no JVD, regular rate, regular rhythm, S1 normal heart sound present and S2 normal heart sound present RATE: regular rate RHYTHM: regular rhythm HEART SOUNDS: S1 normal heart sound present, S2 normal heart sound present, no click, no gallops, no murmurs and no rubs GI: COMMON NORMALS: Soft to palpation and No hepatosplenomegaly present PALPATION: Yes Soft to palpation, No Tenderness to palpation present (GI), No Guarding due to palpation present (GI), No Rigid due to palpation, Yes No hepatosplenomegaly present, No Hernia present, No Palpable mass present and No Pulsatile mass present : COMMON NORMALS: Yes no CVA tenderness BLADDER/KIDNEY EXAM: Yes no CVA tenderness EXTERNAL FEMALE EXAM: No Hernia present Back/Pelvis: COMMON NORMALS: no CVA tenderness, thoracic and lumbar spine normal to inspection, no thoracic nor lumbar tenderness and thoraco-lumbar ROM normal Extremity: COMMON NORMALS: normal to inspection, full ROM, capillary refill normal, no joint enlargement, no clubbing, cyanosis or edema and no calf tenderness Neuro: COMMON NORMALS: patient oriented x3, CN's II-XII intact bilaterally, moves all extremities, no focal motor deficits and no sensory deficits noted SENSORIUM/ORIENTATION: Yes alert MENINGEAL SIGNS: Yes no meningeal signs SPEECH: speech normal Psych: COMMON NORMALS: mental status grossly normal, Normal thought process present, cooperative, normal affect, speech normal and activity/motor behavior normal SPEECH: Yes normal speech THOUGHT PROCESS: Normal thought process present Skin: COMMON NORMALS: no rashes or lesions noted, turgor normal, no jaundice, no petechiae and no mottling GENERAL SKIN EXAM: no rashes or lesions noted and turgor normal Course Vital Signs: Vital signs: Vital Signs Temperature 98.1 F 08/11/20 21:36 Pulse Rate 69 08/11/20 21:36 Respiratory Rate 24 H 08/11/20 21:36 Blood Pressure 161/73 08/11/20 21:36 Pulse Oximetry 100 08/11/20 21:36 MDM - General Adult MDM Narrative: Medical decision making narrative: Mrs. Nye is a very nice 75-year-old female who comes in complaining of throat discomfort. Her oropharyngeal exam was completely normal and her swallowing mechanism was intact. There is no sign of esophageal obstruction. Her differentials considerable including esophageal obstruction, esophagitis, atypical acute coronary syndrome, deep space infection among many others. There is no sign of infection or acute coronary syndrome based upon labs and exam. Patient's CT of her neck was unremarkable but CT of the chest showed esophagitis. The patient is on Protonix but it does not sound like she is taking the medicines as she is supposed to. I gave her a GI cocktail here and that completely resolved her symptoms. She is given an extra dose of IV Protonix and I am going to have her take 40 of Protonix twice daily for the next 10 days. She agrees to do this and then return to her usual dosing. The patient will follow-up with Dr. Thompson or Dr. Cuba as soon as possible for recheck. The patient declined any further evaluation and care here and she wanted to proceed with this plan and go home. After the patient got her GI cocktail here she had no discomfort and was able to drink without any discomfort or difficulties. Lab Data: Attestation: I reviewed the patient's lab results. Labs: Lab Results 08/11/20 08/11/20 08/11/20 Range/Units 23:04 23:04 23:04 WBC 9.8 (4.0-10.0) 10^3/ uL RBC 4.42 (4.1-5.3) 10^6/u L Hgb 12.7 (11.5-15.3) g/dL Hct 39.4 (37.0-47.0) % MCV 89.1 (81-99) fL MCH 28.7 (28.0-34.0) pg MCHC 32.2 (30.0-36.0) g/dL RDW 17.0 H (12.1-15.1) % Plt Count 208 (130-400) 10^3/c mm MPV 9.6 (7.4-10.4) fL Neut % (Auto) 63.1 % Lymph % (Auto) 15.2 % [place] % (Auto) 14.1 % Eos % (Auto) 6.2 % Baso % (Auto) 1.2 % Neut # (Auto) 6.19 (1.8-7.7) 10^3/u L Lymph # (Auto) 1.5 (0.8-4.8) 10^3/u L [place] # (Auto) 1.4 H (0.2-0.9) 10^3/u L Eos # (Auto) 0.6 (0.0-0.8) 10^3/u L Baso # (Auto) 0.1 (0.0-0.1) 10^3/u L Nucleated RBC % (a uto) 0 % Nucleated RBCs # 0.0 /100WBC Sodium 135 L (136-145) mmol/L Potassium 3.3 L (3.5-5.1) mmol/L Chloride 96 L (98-107) mmol/L Carbon Dioxide 25 (22-29) mmol/L Anion Gap 17.3 (5-19) BUN 9 (8-23) mg/dL Creatinine 0.6 (0.5-0.9) mg/dL GFR Calculation Not Reportable Glucose 120 H (65-115) mg/dL Calculated Osmolal ity 280 L (285-295) mOsm/k g Lactic Acid (0.5-2.2) mmol/L Calcium 10.3 (8.5-10.5) mg/dL Magnesium 1.8 (1.7-2.3) mg/dL Total Bilirubin 0.4 (0.15-1.2) mg/dL AST 18 (0-32) U/L ALT 9 (0-33) U/L Alkaline Phosphata se 88 (35-105) IU/L Troponin T Baselin e 30 H (0-10) ng/L Troponin T 120 Min [place] (0-10) ng/L Delta Troponin T (0-10) ABS# Total Protein 7.2 (6.6-8.7) g/dL Albumin 4.2 (3.5-5.2) g/dL Globulin 3.0 (1.3-4.6) g/dL Influenza Type A A g (Negative) Influenza Type B A g (Negative) SARS-CoV-2 Ag (Rap id) (Negative) Group A Strep Rapi d (Negative) 08/11/20 08/11/20 08/11/20 Range/Units 23:04 23:04 23:04 WBC (4.0-10.0) 10^3/ uL RBC (4.1-5.3) 10^6/u L Hgb (11.5-15.3) g/dL Hct (37.0-47.0) % MCV (81-99) fL MCH (28.0-34.0) pg MCHC (30.0-36.0) g/dL RDW (12.1-15.1) % Plt Count (130-400) 10^3/c mm MPV (7.4-10.4) fL Neut % (Auto) % Lymph % (Auto) % [place] % (Auto) % Eos % (Auto) % Baso % (Auto) % Neut # (Auto) (1.8-7.7) 10^3/u L Lymph # (Auto) (0.8-4.8) 10^3/u L [place] # (Auto) (0.2-0.9) 10^3/u L Eos # (Auto) (0.0-0.8) 10^3/u L Baso # (Auto) (0.0-0.1) 10^3/u L Nucleated RBC % (a uto) % Nucleated RBCs # /100WBC Sodium (136-145) mmol/L Potassium (3.5-5.1) mmol/L Chloride (98-107) mmol/L Carbon Dioxide (22-29) mmol/L Anion Gap (5-19) BUN (8-23) mg/dL Creatinine (0.5-0.9) mg/dL GFR Calculation Glucose (65-115) mg/dL Calculated Osmolal ity (285-295) mOsm/k g Lactic Acid 1.8 (0.5-2.2) mmol/L Calcium (8.5-10.5) mg/dL Magnesium (1.7-2.3) mg/dL Total Bilirubin (0.15-1.2) mg/dL AST (0-32) U/L ALT (0-33) U/L Alkaline Phosphata se (35-105) IU/L Troponin T Baselin e (0-10) ng/L Troponin T 120 Min [place] (0-10) ng/L Delta Troponin T (0-10) ABS# Total Protein (6.6-8.7) g/dL Albumin (3.5-5.2) g/dL Globulin (1.3-4.6) g/dL Influenza Type A A g Negative (Negative) Influenza Type B A g Negative (Negative) SARS-CoV-2 Ag (Rap id) Negative (Negative) Group A Strep Rapi d (Negative) 08/11/20 08/12/20 Range/Units 23:25 01:36 WBC (4.0-10.0) 10^3/ uL RBC (4.1-5.3) 10^6/u L Hgb (11.5-15.3) g/dL Hct (37.0-47.0) % MCV (81-99) fL MCH (28.0-34.0) pg MCHC (30.0-36.0) g/dL RDW (12.1-15.1) % Plt Count (130-400) 10^3/c mm MPV (7.4-10.4) fL Neut % (Auto) % Lymph % (Auto) % [place] % (Auto) % Eos % (Auto) % Baso % (Auto) % Neut # (Auto) (1.8-7.7) 10^3/u L Lymph # (Auto) (0.8-4.8) 10^3/u L [place] # (Auto) (0.2-0.9) 10^3/u L Eos # (Auto) (0.0-0.8) 10^3/u L Baso # (Auto) (0.0-0.1) 10^3/u L Nucleated RBC % (a uto) % Nucleated RBCs # /100WBC Sodium (136-145) mmol/L Potassium (3.5-5.1) mmol/L Chloride (98-107) mmol/L Carbon Dioxide (22-29) mmol/L Anion Gap (5-19) BUN (8-23) mg/dL Creatinine (0.5-0.9) mg/dL GFR Calculation Glucose (65-115) mg/dL Calculated Osmolal ity (285-295) mOsm/k g Lactic Acid (0.5-2.2) mmol/L Calcium (8.5-10.5) mg/dL Magnesium (1.7-2.3) mg/dL Total Bilirubin (0.15-1.2) mg/dL AST (0-32) U/L ALT (0-33) U/L Alkaline Phosphata se (35-105) IU/L Troponin T Baselin e (0-10) ng/L Troponin T 120 Min [place] 32.96 H (0-10) ng/L Delta Troponin T 2.96 (0-10) ABS# Total Protein (6.6-8.7) g/dL Albumin (3.5-5.2) g/dL Globulin (1.3-4.6) g/dL Influenza Type A A g (Negative) Influenza Type B A g (Negative) SARS-CoV-2 Ag (Rap id) (Negative) Group A Strep Rapi d Negative (Negative) Imaging Data^: CXR: Attestation: I personally reviewed and interpreted this imaging study as follows: My impression: No acute cardiopulmonary findings. CT Neck: Radiologist's impression: [address] [address] [address] Scan Report Signed Patient: Jenna Nye Azucena #: [id number] : 3Acct#:[id number] Age/Sex: 75 / FADM Date: 08/11/20 Loc: ERRoom/Bed: Attending Dr: Ordering Provider/Ordering MD: Maribel Odom DO Date of Service: 08/11/20 Procedure(s): CT neck w con* [id number] Accession Number(s): [id number] Report Number: [id number] PROCEDURE INFORMATION: Exam: CT Neck With Contrast Exam date and time: 08/11/2020 11:29 PM Age: 75 years old Clinical indication: Dysphagia / difficulty swallowing; Patient HX: C/O fb sensation w painful/difficult swallowing; Additional info: Throat pain TECHNIQUE: Imaging protocol: Computed tomography images of the neck with intravenous contrast. Radiation optimization: All CT scans at this facility use at least one of these dose optimization techniques: automated exposure control; mA and/or kV adjustment per patient size (includes targeted exams where dose is matched to clinical indication); or iterative reconstruction. Contrast material: OMNI 300; Contrast volume: 75 ml; Contrast route: INTRAVENOUS (IV); COMPARISON: CT cervical spin wo con* [id number] 2020-07-14 20:54 RADIATION DOSE METRICS: Total DLP (mGy-cm): 643.56 FINDINGS: Tubes, catheters and devices: Central line tip in the SVC atrial junction. Brain: Moderate chronic white matter disease. There is a pulmonary parenchymal calcification consistent with remote granulomatous organism exposure. Paranasal sinuses: Mild scattered paranasal sinus mucosal thickening and secretions. Nasopharynx: Unremarkable. Oropharynx: Unremarkable. No significant tonsillar enlargement. Hypopharynx: Unremarkable. Larynx: Unremarkable. Normal epiglottis. Retropharyngeal space: Unremarkable. Submandibular/Parotid glands: Normal. Glands are normal in size. Thyroid: Normal. No enlarged or calcified nodules. Lymph nodes: Unremarkable. No lymphadenopathy. Trachea: Visualized trachea is unremarkable. Lungs: The pulmonary arteries demonstrate mild central enlargement, consistent with mild pulmonary hypertension. Esophagus: Patulous esophagus. Bones/joints: Rightward nasal septal deviation and spurring. Vasculature: Moderate to severe proximal bilateral ICA stenosis. Soft tissues: No visualized foreign body, or acute abnormality in the aero digestive tract. CT/CT neck w con* [id number] IMPRESSION: 1. Moderate to severe proximal bilateral ICA stenosis. 2. Patulous esophagus. No visualized foreign body, or acute abnormality in the aero digestive tract. Radiation Dose CTDIVOL = (mGy): DLP = 643.56 (mGy-cm) Dictated By:Mychal Coyne MD Signed By:Mychal Coyneigned Date/Time:08/12/20 0006 DD/ 0004 CT Chest: Radiologist's impression: [facility] [address] [place] [address] CT Scan Report Signed Patient: Jenna Nye #: [id number] : 1945Acct#:[id number] Age/Sex: 75 / FADM Date: 08/11/20 Loc: ERRoom/Bed: Attending Dr: Ordering Provider/Ordering MD: Maribel Odom DO Date of Service: 08/11/20 Procedure(s): CT chest w con* [id number] Accession Number(s): [id number] Report Number: [id number] PROCEDURE INFORMATION: Exam: CT Chest With Contrast Exam date and time: 08/11/2020 11:29 PM Age: 75 years old Clinical indication: Other: Difficulty swallowing; Prior surgery; Surgery date: 6+ months; Surgery type: Port, lumpectomy; Patient HX: HX of breast CA and lymphoma C/O fb sensation w painful/difficult swallowing; Additional info: Pain TECHNIQUE: Imaging protocol: Computed tomography of the chest with intravenous contrast. Radiation optimization: All CT scans at this facility use at least one of these dose optimization techniques: automated exposure control; mA and/or kV adjustment per patient size (includes targeted exams where dose is matched to clinical indication); or iterative reconstruction. Contrast material: OMNI 300; Contrast volume: 75 ml; Contrast route: INTRAVENOUS (IV); COMPARISON: CT angio chest w abd pel w con 2019-11-23 04:27 RADIATION DOSE METRICS: Total DLP (mGy-cm): 764.36 FINDINGS: Tubes, catheters and devices: Port-A-Cath tip in the superior atrial caval junction. Lungs: Unremarkable. No consolidation. No masses. Pleural space: Unremarkable. No pneumothorax. No pleural effusion. Heart: Unremarkable. No cardiomegaly. No pericardial effusion. Mediastinal space: Patulous esophagus with mild distal esophageal thickening. Pulmonary arteries: The pulmonary arteries demonstrate moderate central enlargement, consistent with moderate pulmonary hypertension. Aorta: Unremarkable. No aortic aneurysm. Lymph nodes: Unremarkable. No enlarged lymph nodes. Gallbladder and bile ducts: Cholecystectomy. Bones/joints: No destructive sclerotic or lytic bone lesions. Soft tissues: Several small breast nodular densities with calcification, some appear new since the comparison, recommend follow-up mammogram. CT/CT chest w con* [id number] IMPRESSION: 1. Several small breast nodular densities with calcification, some appear new since the comparison, recommend follow-up mammogram. 2. Patulous esophagus with mild distal esophageal thickening. Radiation Dose CTDIVOL = (mGy): DLP = 764.36 (mGy-cm) Dictated By:Mychal Coyne MD Signed By:Mychal Coyneigned Date/Time:08/12/20 0009 EKG Data^: EKG 1: Attestation: I personally reviewed and interpreted this EKG as follows: EKG interpretation date: 08/11/20 EKG interpretation time: 23:14 Interpretation: Normal sinus rhythm with a ventricular rate of 60 beats a minute, PVC noted, no blocks, normal intervals, no acute ST or T wave changes. Computer generated interpretation: Chest CT 08/11/20 23:26 IMPRESSION: 1. Several small breast nodular densities with calcification, some appear new since the comparison, recommend follow-up mammogram. 2. Patulous esophagus with mild distal esophageal thickening. Radiation Dose CTDIVOL = (mGy): DLP = 764.36 (mGy-cm) Neck CT 08/11/20 23:26 IMPRESSION: 1. Moderate to severe proximal bilateral ICA stenosis. 2. Patulous esophagus. No visualized foreign body, or acute abnormality in the aero digestive tract. Radiation Dose CTDIVOL = (mGy): DLP = 643.56 (mGy-cm) EKG 2: Attestation: I personally reviewed and interpreted this EKG as follows: EKG interpretation date: 08/12/20 EKG interpretation time: 01:48 Interpretation: Normal sinus rhythm at 68 beats a minute, no blocks, normal intervals, no acute ST-T wave changes. PVC. Computer generated interpretation: Chest CT 08/11/20 23:26 IMPRESSION: 1. Several small breast nodular densities with calcification, some appear new since the comparison, recommend follow-up mammogram. 2. Patulous esophagus with mild distal esophageal thickening. Radiation Dose CTDIVOL = (mGy): DLP = 764.36 (mGy-cm) Neck CT 08/11/20 23:26 IMPRESSION: 1. Moderate to severe proximal bilateral ICA stenosis. 2. Patulous esophagus. No visualized foreign body, or acute abnormality in the aero digestive tract. Radiation Dose CTDIVOL = (mGy): DLP = 643.56 (mGy-cm) Discharge Plan Discharge Patient Disposition: Home Clinical Impression: Esophagitis Condition: Stable Prescriptions: New Protonix 40 mg tablet,delayed release (DR/EC) 40 mg PO Q12H 10 Days Qty: 20 RF: 0 No Action aspirin 81 mg tablet,delayed release (DR/EC) 81 mg PO DAILY RF: 0 Hold Instructions: Resume on 04/20/20. Complete Multivitamin Tablet 1 tab PO DAILY RF: 0 calcium carbonate [Calcium 500] 500 mg calcium (1,250 mg) tablet 500 mg PO DAILY RF: 0 letrozole 2.5 mg tablet 2.5 mg PO DAILY RF: 0 Alphagan P 0.1 % drops 1 drop ophthalmic (eye) Q8H RF: 0 timolol 0.5 % drops 1 drop ophthalmic (eye) BID RF: 0 ICaps AREDS2 250 mg-200 unit -12.5 mg-1 mg capsule 1 cap PO BID RF: 0 Protonix 40 mg tablet,delayed release (DR/EC) 40 mg PO DAILY Qty: 90 RF: 3 hydrochlorothiazide 12.5 mg capsule 12.5 mg PO DAILY Qty: 90 RF: 3 meloxicam 15 mg tablet 15 mg PO DAILY Qty: 30 RF: 3 Hold Instructions: Resume on 04/20/20. simvastatin 20 mg tablet 20 mg PO DAILY Qty: 90 RF: 0 nifedipine 30 mg tablet extended release 30 mg PO DAILY Qty: 30 RF: 3 Ativan 1 mg Tablet 1 mg PO DAILY PRN (Reason: Nausea) RF: 0 Novolin R Flexpen 100 unit/mL (3 mL) Insulin Pen See Rx Instructions .ROUTE .COMPLEX RF: 0 hydrocodone-acetaminophen [[place]] 5-325 mg tablet 1 tab PO Q6H PRN (Reason: pain) Qty: 15 RF: 0 Discharge Orders: Discharge Order (Routine); Ordered 08/12/20 Ordered By: Maribel Odom Referrals: Mahamed Cuba MD [Primary Care Provider] - 1-3 days Carl Thompson MD [Staff Physician] - 1-3 days Discharge Diet: Advance as tolerated Discharge Activity: Increase activity as tolerated Patient Instructions: Gastroesophageal Reflux Disease (ED) Activity Restrictions/Additional Instructions: Please return to the ER immediately for any of the signs or symptoms listed on your discharge instruction sheets, worsening/changing of your symptoms, you are not getting better as quickly as expected, or for ANY other cause or concerns. Take the Protonix as I have prescribed for the next 10 days and then resume your usual dose. If you have recurrence of your symptoms, you cannot swallow, he develop a fever, began to vomit, you develop chest pain, or have any other concerns please return to the ER immediately for recheck. Be certain to follow-up with Dr. Thompson or with Dr. Cuba as soon as possible for recheck. Coding Level of Care Code ED Cut Off Machine Operator for Chg Fwd Exam Comprehensive
[2020-08-11 23:11] LABS: Basophils # 0.1 10^3/uL (0.0-0.1); Basophils % 1.2 %; Eosinophils # 0.6 10^3/uL (0.0-0.8); Eosinophils % 6.2 %; Hematocrit 39.4 % (37.0-47.0); Hemoglobin 12.7 g/dL (11.5-15.3); Lymphocytes # 1.5 10^3/uL (0.8-4.8); Lymphocytes % 15.2 %; Mean Corpuscular HGB Conc 32.2 g/dL (30.0-36.0); Mean Corpuscular Hemoglobin 28.7 pg (28.0-34.0); Mean Corpuscular Volume 89.1 fL (81-99); Mean Platelet Volume 9.6 fL (7.4-10.4); Monocytes # 1.4 10^3/uL (0.2-0.9); Monocytes % 14.1 %; Neutrophils # 6.19 10^3/uL (1.8-7.7); Neutrophils % 63.1 %; Nucleated Red Blood Cells % 0 %; Platelet Count 208 10^3/cmm (130-400); Red Blood Count 4.42 10^6/uL (4.1-5.3); White Blood Count 9.8 10^3/uL (4.0-10.0)
--- NOTE | 2020-08-11 23:26 | CTR_ITS ---
PROCEDURE INFORMATION: Exam: CT Neck With Contrast Exam date and time: 08/11/2020 11:29 PM Age: 75 years old Clinical indication: Dysphagia / difficulty swallowing; Patient HX: C/O fb sensation w painful/difficult swallowing; Additional info: Throat pain TECHNIQUE: Imaging protocol: Computed tomography images of the neck with intravenous contrast. Radiation optimization: All CT scans at this facility use at least one of these dose optimization techniques: automated exposure control; mA and/or kV adjustment per patient size (includes targeted exams where dose is matched to clinical indication); or iterative reconstruction. Contrast material: OMNI 300; Contrast volume: 75 ml; Contrast route: INTRAVENOUS (IV); COMPARISON: CT cervical spin wo con* [id number] 2020-07-14 20:54 RADIATION DOSE METRICS: Total DLP (mGy-cm): 643.56 FINDINGS: Tubes, catheters and devices: Central line tip in the SVC atrial junction. Brain: Moderate chronic white matter disease. There is a pulmonary parenchymal calcification consistent with remote granulomatous organism exposure. Paranasal sinuses: Mild scattered paranasal sinus mucosal thickening and secretions. Nasopharynx: Unremarkable. Oropharynx: Unremarkable. No significant tonsillar enlargement. Hypopharynx: Unremarkable. Larynx: Unremarkable. Normal epiglottis. Retropharyngeal space: Unremarkable. Submandibular/Parotid glands: Normal. Glands are normal in size. Thyroid: Normal. No enlarged or calcified nodules. Lymph nodes: Unremarkable. No lymphadenopathy. Trachea: Visualized trachea is unremarkable. Lungs: The pulmonary arteries demonstrate mild central enlargement, consistent with mild pulmonary hypertension. Esophagus: Patulous esophagus. Bones/joints: Rightward nasal septal deviation and spurring. Vasculature: Moderate to severe proximal bilateral ICA stenosis. Soft tissues: No visualized foreign body, or acute abnormality in the aero digestive tract. CT/CT neck w con* [id number] IMPRESSION: 1. Moderate to severe proximal bilateral ICA stenosis. 2. Patulous esophagus. No visualized foreign body, or acute abnormality in the aero digestive tract. Radiation Dose CTDIVOL = (mGy): DLP = 643.56 (mGy-cm)
--- NOTE | 2020-08-11 23:26 | CTR_ITS ---
PROCEDURE INFORMATION: Exam: CT Chest With Contrast Exam date and time: 08/11/2020 11:29 PM Age: 75 years old Clinical indication: Other: Difficulty swallowing; Prior surgery; Surgery date: 6+ months; Surgery type: Port, lumpectomy; Patient HX: HX of breast CA and lymphoma C/O fb sensation w painful/difficult swallowing; Additional info: Pain TECHNIQUE: Imaging protocol: Computed tomography of the chest with intravenous contrast. Radiation optimization: All CT scans at this facility use at least one of these dose optimization techniques: automated exposure control; mA and/or kV adjustment per patient size (includes targeted exams where dose is matched to clinical indication); or iterative reconstruction. Contrast material: OMNI 300; Contrast volume: 75 ml; Contrast route: INTRAVENOUS (IV); COMPARISON: CT angio chest w abd pel w con 2019-11-23 04:27 RADIATION DOSE METRICS: Total DLP (mGy-cm): 764.36 FINDINGS: Tubes, catheters and devices: Port-A-Cath tip in the superior atrial caval junction. Lungs: Unremarkable. No consolidation. No masses. Pleural space: Unremarkable. No pneumothorax. No pleural effusion. Heart: Unremarkable. No cardiomegaly. No pericardial effusion. Mediastinal space: Patulous esophagus with mild distal esophageal thickening. Pulmonary arteries: The pulmonary arteries demonstrate moderate central enlargement, consistent with moderate pulmonary hypertension. Aorta: Unremarkable. No aortic aneurysm. Lymph nodes: Unremarkable. No enlarged lymph nodes. Gallbladder and bile ducts: Cholecystectomy. Bones/joints: No destructive sclerotic or lytic bone lesions. Soft tissues: Several small breast nodular densities with calcification, some appear new since the comparison, recommend follow-up mammogram. CT/CT chest w con* [id number] IMPRESSION: 1. Several small breast nodular densities with calcification, some appear new since the comparison, recommend follow-up mammogram. 2. Patulous esophagus with mild distal esophageal thickening. Radiation Dose CTDIVOL = (mGy): DLP = 764.36 (mGy-cm)
[2020-08-11 23:29] LABS: Alanine Aminotransferase 9 U/L (0-33); Albumin Level 4.2 g/dL (3.5-5.2); Alkaline Phosphatase 88 IU/L (35-105); Aspartate Amino Transferase 18 U/L (0-32); Blood Urea Nitrogen 9 mg/dL (8-23); Calcium 10.3 mg/dL (8.5-10.5); Carbon Dioxide 25 mmol/L (22-29); Chloride 96 mmol/L (98-107); Glucose 120 mg/dL (65-115); Magnesium 1.8 mg/dL (1.7-2.3); Osmolality Calculated 280 mOsm/kg (285-295); Sodium 135 mmol/L (136-145); Total Bilirubin 0.4 mg/dL (0.15-1.2); Total Protein 7.2 g/dL (6.6-8.7)
[2020-08-11 23:31] LABS: Anion Gap 17.3 (5-19); Potassium 3.3 mmol/L (3.5-5.1); SARS Covid-2 Antigen Negative (Negative)
[2020-08-11] MEDS: iohexol 300 mg/mL 100 mL Btl IV ×2 (23:42)
[2020-08-11 23:43] LABS: Rapid Strep A Test Negative (Negative)
[2020-08-11 23:51] LABS: Influenza A by IFA Negative (Negative); Influenza B by IFA Negative (Negative)
[2020-08-12] LABS: Lactic Sepsis W/Reflex 1.8 mmol/L (0.5-2.2)
[2020-08-12 00:01] LABS: Troponin(5th) Baseline 30 ng/L (0-10)
[2020-08-12] MEDS: ondansetron 2 mg/ML SDV 2 mL 4 MG IVP (01:01)
[2020-08-12] MEDS: pantoprazole 40 mg SDV 80 MG IVP (01:02)
[2020-08-12] MEDS: potassium chloride premix 100 ML 50 MEQ IV (01:03)
[2020-08-12] MEDS: lidocaine 2% viscous 15 ML, aluminum-mag hydrox-simethicon 30 ML, sucralfate oral liq 1 GM PO (01:05)
[2020-08-12 02:02] LABS: Troponin 5 2HR 32.96 ng/L (0-10); Troponin 5 2HR Delta 2.96 ABS# (0-10)
[2020-08-12] MEDS: potassium chloride ER 10 mEq Tablet 20 MEQ PO (02:08)
[2020-08-12 02:09] VITALS: RESP 16; O2SAT 99
== END 2020-08-12 02:20 | disposition home or self-care (01) ==
PROVIDERS: Emergency Provider Emergency Medicine; PCP Internal Medicine
DX: K20.90 Esophagitis, unspecified without bleeding (principal); Z79.82 Long term (current) use of aspirin; Z79.4 Long term (current) use of insulin; Z85.3 Personal history of malignant neoplasm of breast; E78.5 Hyperlipidemia, unspecified; Z86.73 Personal history of transient ischemic attack (TIA), and cerebral infarction without residual deficits
CPT/HCPCS: 12345; 36415; 70491; 71045; 71260; 80053; 83605; 83735; 84484; 85025; 87081; 87426; 87804; 87880; 93005; 96365; 96366; 96375; 99283; 99284; C9113; J2405; J3480; Q9967

== ENCOUNTER 2020-08-17 15:30 | Observation (INO) | payer MEDICARE, OTHER, SELFPAY ==
[2020-08-17 15:51] VITALS: BP 123/73; PULSE 65; RESP 14; TEMP 36.7; O2SAT 98; BMI 24.7
[2020-08-17 16:26] VITALS: O2SAT 100
--- NOTE | 2020-08-17 16:38 | ECG_ITS ---
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 Measurements Intervals [place] Rate: 61 P: 33 MO: 195 QRS: 7 QRSD: 66 T: -42 QT: 396 QTc: 400 Interpretive Statements SINUS RHYTHM WITH OCCASIONAL VENTRICULAR PREMATURE COMPLEXES LOW QRS VOLTAGE IN PRECORDIAL LEADS [QRS DEFLECTION < 1.0 mV IN CHEST LEADS] POSSIBLE ANTERIOR MYOCARDIAL INFARCTION [30 ms Q WAVE IN V3/V4, OR R < 0.2 mV IN V4], PROBABLY OLD Diffuse nonspecific T wave changes compared to ECG 08/11/2020 23:14:49 Low QRS voltage now present Myocardial infarct finding now present Electronically Signed On 08-18-2020 19:41:31 CDT by Gustabo Orta M.D. [id number] f
--- NOTE | 2020-08-17 16:38 | CTR_ITS ---
PROCEDURE INFORMATION: Exam: CT Head Without Contrast Exam date and time: 08/17/2020 4:45 PM Age: 75 years old Clinical indication: Dizziness and numbness / parasthesia; Bilateral; Patient HX: C/O dizziness, weakness and numbness after a coughing episode TECHNIQUE: Imaging protocol: Computed tomography of the head without contrast. Radiation optimization: All CT scans at this facility use at least one of these dose optimization techniques: automated exposure control; mA and/or kV adjustment per patient size (includes targeted exams where dose is matched to clinical indication); or iterative reconstruction. COMPARISON: CT head wo con* [id number] 07/14/2020 8:51 PM RADIATION DOSE METRICS: Total DLP (mGy-cm): 634.36 FINDINGS: Brain: No evidence of active or acute intracranial pathologic process, hemorrhage, or trauma. Old left frontal lobe lacunar infarctions. Small vessel ischemic disease with senile periventricular leukomalacia. Cerebral and cerebellar atrophy with ventricular dilatation slightly greater than that anticipated for patient's chronological age. Patent cavum septum pellucidum which is a normal anatomical variant. Cerebral ventricles: No obstructive ventriculomegaly. Bones/joints: Unremarkable. No acute fracture. Paranasal sinuses: Evidence of mild chronic right ethmoid and frontal sinusitis. Mastoid air cells: Visualized mastoid air cells are well aerated. Soft tissues: Unremarkable. CT/CT head wo con* [id number] IMPRESSION: No evidence of active or acute intracranial pathologic process, hemorrhage, or trauma. Radiation Dose CTDIVOL = (mGy): DLP = 634.36 (mGy-cm)
--- NOTE | 2020-08-17 16:38 | XRR_ITS ---
PROCEDURE INFORMATION: Exam: XR Chest, 1 View Exam date and time: 08/17/2020 4:39 PM Age: 75 years old Clinical indication: Cough TECHNIQUE: Imaging protocol: XR of the chest Views: 1 view. COMPARISON: CT chest w con* [id number] 08/11/2020 11:41 PM FINDINGS: Tubes, catheters and devices: Right Infusaport catheter. Lungs: Mild senile fibrosis. No visible active interstitial or alveolar airspace disease. Pleural space: Unremarkable. No pleural effusion. No pneumothorax. Heart/Mediastinum: Cardiac structures and configuration with arteriosclerosis. Bones/joints: Unremarkable for age. Organs: Status post cholecystectomy. XR/XR chest 1V portable [id number] IMPRESSION: Nonacute.
[2020-08-17] MEDS: ondansetron 2 mg/ML SDV 2 mL 4 MG IVP (17:07)
[2020-08-17] MEDS: lidocaine 2% viscous 15 ML, aluminum-mag hydrox-simethicon 30 ML, sucralfate oral liq 1 GM PO (17:08)
[2020-08-17] MEDS: sodium chloride 0.9% 1,000 ML 100 ML IV (17:08)
[2020-08-17 17:12] LABS: Add Urine Microscopic? YES; Bilirubin Urine Neg (Negative); Blood Urine Neg (Negative); Glucose Urine UA Norm (Normal); Ketones Urine Negative (Negative); Leukocyte Esterase Urine 1+ (Negative); Nitrate Urine Negative (Negative); Protein Urine Neg (Negative); Sulfosalicylic Acid Urine Negative (Negative); Urine Appearance Clear (CLEAR); Urine Color Straw (Yellow); Urobilinogen Urine Norm (Negative); WBC Urine 15-25 /hpf (0-5); pH Urine 8 (5-7)
[2020-08-17 17:12] LABS: Basophils # 0.1 10^3/uL (0.0-0.1); Basophils % 1.5 %; Eosinophils # 0.3 10^3/uL (0.0-0.8); Eosinophils % 3.2 %; Hematocrit 39.8 % (37.0-47.0); Hemoglobin 12.6 g/dL (11.5-15.3); Lymphocytes # 1.3 10^3/uL (0.8-4.8); Lymphocytes % 14.4 %; Mean Corpuscular HGB Conc 31.7 g/dL (30.0-36.0); Mean Corpuscular Hemoglobin 28.3 pg (28.0-34.0); Mean Corpuscular Volume 89.2 fL (81-99); Monocytes # 1.2 10^3/uL (0.2-0.9); Monocytes % 13.1 %; Neutrophils # 5.93 10^3/uL (1.8-7.7); Neutrophils % 67.5 %; Nucleated Red Blood Cells % 0 %; Platelet Count 228 10^3/cmm (130-400); Red Blood Count 4.46 10^6/uL (4.1-5.3); Red Cell Distribution Width 16.7 % (12.1-15.1); White Blood Count 8.8 10^3/uL (4.0-10.0)
[2020-08-17 17:13] LABS: Add Urine Culture? Yes; Bacteria Urine 1+ /hpf; Squamous Epithelial Cell Urine 0-4 /hpf (0-5)
--- NOTE | 2020-08-17 17:19 | ED_ITS ---
HPI - General Adult General: Chief complaint: Airway/Esophagus Foreign Body Stated complaint: Swallowed something, whole body went numb Time Seen by Provider: 08/17/20 16:34 Source: patient and family Mode of arrival: ambulatory Limitations: no limitations History of Present Illness: HPI narrative: Mrs. Nye is a very nice 75-year-old female who comes in with a complaint of discomfort down in the lower anterior part of her neck. Patient was seen by me 6 days ago for the same complaint was found to have esophagitis at that time. The patient has been taking an increased dose of Protonix and she says at times the symptoms will be better but then they return. Tonight she had a coughing spell which she said she commonly gets secondary to her chronic bronchitis and felt like something came up from her throat and ultimately she had a near syncopal episode. She complains of dizziness, diffuse tingling and just feeling odd overall. She states the symptoms are gradually getting better but very slowly. Patient has not followed up with Dr. Thompson to this point. She sees him for lymphoma but has not had chemo in 2 weeks. Associated symptoms: Deny chest pain, dyspnea, headache(s), nausea, rash, palpitations, syncope or vomiting Review of Systems Const: Denies: fever(s) Eyes: Denies: change in vision or blurry vision ENMT: Reports: throat pain; Denies: hoarseness or swelling of lips/tongue Card: Denies: chest pain, palpitations, syncope, pre-syncope or dyspnea on exertion Resp: Reports: non-productive cough; Denies: dyspnea, productive cough, wheezing, change in phlegm color or hemoptysis GI: Denies: abdominal pain, nausea, vomiting or diarrhea : Denies: flank pain, dysuria, urinary frequency or urinary urgency Musc: Denies: neck pain, back pain or extremity pain Skin/Breast: Denies: rash or pruritus Neuro: Reports: dizziness; Denies: headache(s), numbness in extremities or weakness in extremities Hector/Lymph: Denies: easy bruising, easy bleeding, petechiae or purpura All/Imm: Denies: urticaria or throat swelling PFSH ED PFSH: Medical History (Updated 08/17/20 @ 20:16 by Maribel Odom) Cervical disc disorder with myelopathy of mid-cervical region Chronic bronchitis Closed head injury GERD (gastroesophageal reflux disease) HX: breast cancer ER [place] negative, 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 status post radiation therapy and hormonal therapy, currently on Femara Hyperlipidemia 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 disc disorder 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 region 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) use of opiate analgesic Lumbar stenosis without neurogenic claudication Pain management contract signed Spondylolisthesis of cervical region 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 (cerebrum) Hx of stroke in February 07, 2019 Surgical History (Updated 08/17/20 @ 19:38 by Abdulkadir Mercado MD) H/O total hip arthroplasty Right History of cholecystectomy History of hysterectomy / BSO / appendectomy History of left breast biopsy Port-A-Cath in place 04/16/20 Social History Smoking and tobacco status: never smoked Alcohol intake: never Lives independently: Yes Household members: spouse Marital status: Current occupational status: retired History of recent travel: No Physical Exam Const: COMMON NORMALS: no acute distress, patient oriented x3, no limitations and alert GENERAL APPEARANCE: cooperative HENMT: COMMON NORMALS: normocephalic, atraumatic, external ears normal, EAC's normal and Normal external nose present HEAD & SCALP: normal to inspection, normocephalic and atraumatic FACE & SINUS: normal facial exam and face symmetric NOSE: Normal external nose present and Normal nares present EXTERNAL EAR: Yes external ears normal EXTERNAL AUDITORY CANAL: EAC's normal MOUTH: Normal oral and palatal mucosa present, lip normal and tongue normal Eye: COMMON NORMALS: Equal, round and reactive pupils present and conjunctivae normal GENERAL EYE: appearance normal, both eyes and all related structures ALIGNMENT: Yes alignment normal PERIORBITAL: periorbital findings normal EYELID: eyelids normal CONJUNCTIVA: Yes conjunctivae normal SCLERA: sclerae normal PUPIL: Yes Equal, round and reactive pupils present Neck/C-Spine: COMMON NORMALS: full ROM, no lymphadenopathy, supple, no meningeal signs and no JVD GENERAL: Yes normal visual inspection and Yes trachea midline Chest: COMMONS NORMALS: normal inspection of the chest and normal palpation of entire chest wall Resp: COMMON NORMALS: normal respiratory effort, No retractions, No use of accessory muscles and clear to auscultation bilaterally EFFORT & INSPECTION: Yes able to speak in complete sentences and Yes symmetric chest movement AUSCULTATION: clear to auscultation bilaterally, no crackles, no rales, no rhonchi and no wheezes Cardio: COMMON NORMALS: no JVD, regular rate, regular rhythm, S1 normal heart sound present and S2 normal heart sound present RATE: regular rate RHYTHM: regular rhythm HEART SOUNDS: S1 normal heart sound present, S2 normal heart sound present, no click, no gallops, no murmurs and no rubs GI: COMMON NORMALS: Soft to palpation and No hepatosplenomegaly present PALPATION: Yes Soft to palpation, No Tenderness to palpation present (GI), No Guarding due to palpation present (GI), No Rigid due to palpation, Yes No hepatosplenomegaly present, No Hernia present, No Palpable mass present and No Pulsatile mass present : COMMON NORMALS: Yes no CVA tenderness BLADDER/KIDNEY EXAM: Yes no CVA tenderness EXTERNAL FEMALE EXAM: No Hernia present Back/Pelvis: COMMON NORMALS: no CVA tenderness, thoracic and lumbar spine no rmal to inspection, no thoracic nor lumbar tenderness and thoraco-lumbar ROM normal Extremity: COMMON NORMALS: normal to inspection, full ROM, capillary refill normal, no joint enlargement, no clubbing, cyanosis or edema and no calf tenderness Neuro: COMMON NORMALS: patient oriented x3, CN's II-XII intact bilaterally, moves all extremities, no focal motor deficits and no sensory deficits noted SENSORIUM/ORIENTATION: Yes alert MENINGEAL SIGNS: Yes no meningeal signs SPEECH: speech normal Psych: COMMON NORMALS: mental status grossly normal, Normal thought process present, cooperative, normal affect, speech normal and activity/motor behavior normal SPEECH: Yes normal speech THOUGHT PROCESS: Normal thought process present Skin: COMMON NORMALS: no rashes or lesions noted, turgor normal, no jaundice, no petechiae and no mottling GENERAL SKIN EXAM: no rashes or lesions noted and turgor normal Course 2 Vital Signs: Vital signs: Vital Signs Temperature 98.1 F 08/17/20 15:51 Pulse Rate 70 08/17/20 20:00 Respiratory Rate 16 08/17/20 20:00 Blood Pressure 183/89 08/17/20 20:00 Pulse Oximetry 98 08/17/20 20:00 MDM - General Adult MDM Narrative: Medical decision making narrative: Patient's work-up here is unremarkable. Her troponin is less than it was the night before. I have not reimaged her at this time as her exam is not changed. A GI cocktail has once again completely resolved her symptoms. I consulted with Dr. Thompson by phone who recommended admitting for EGD and empirically starting her on Diflucan for candidal esophagitis. I contacted Dr. Mercado who agreed to come see the patient in the ER and likely scope tomorrow. I reviewed the case with Dr. Figueredo and he agrees to admit the patient for further evaluation and care. Lab Data: Labs: Lab Results 08/17/20 08/17/20 08/17/20 Range/Units 16:51 16:51 16:51 WBC 8.8 (4.0-10.0) 10^3/ uL RBC 4.46 (4.1-5.3) 10^6/u L Hgb 12.6 (11.5-15.3) g/dL Hct 39.8 (37.0-47.0) % MCV 89.2 (81-99) fL MCH 28.3 (28.0-34.0) pg MCHC 31.7 (30.0-36.0) g/dL RDW 16.7 H (12.1-15.1) % Plt Count 228 (130-400) 10^3/c mm MPV 10.0 (7.4-10.4) fL Neut % (Auto) 67.5 % Lymph % (Auto) 14.4 % [place] % (Auto) 13.1 % Eos % (Auto) 3.2 % Baso % (Auto) 1.5 % Neut # (Auto) 5.93 (1.8-7.7) 10^3/u L Lymph # (Auto) 1.3 (0.8-4.8) 10^3/u L [place] # (Auto) 1.2 H (0.2-0.9) 10^3/u L Eos # (Auto) 0.3 (0.0-0.8) 10^3/u L Baso # (Auto) 0.1 (0.0-0.1) 10^3/u L Nucleated RBC % (a uto) 0 % Nucleated RBCs # 0.0 /100WBC PT 13.20 (12.1-14.9) SECO NDS INR 0.97 (0.8-1.2) Sodium Cancelled Potassium Cancelled Chloride Cancelled Carbon Dioxide Cancelled Anion Gap Cancelled BUN Cancelled Creatinine Cancelled GFR Calculation Cancelled Glucose Cancelled Calculated Osmolal ity Cancelled Calcium Cancelled Magnesium Cancelled Total Bilirubin Cancelled AST Cancelled ALT Cancelled Alkaline Phosphata se Cancelled Troponin T Gen 5 n g/L (0-10) ng/L Total Protein Cancelled Albumin Cancelled Globulin Cancelled Urine Color (Yellow) Urine Appearance (CLEAR) Urine pH (5-7) Ur Specific Gravit y (1.005-1.030) Urine Protein (Negative) Urine Glucose (UA) (Normal) Urine Ketones (Negative) Urine Blood (Negative) Urine Nitrate (Negative) Urine Bilirubin (Negative) Prot Sulfosalicyli c Acd (Negative) Urine Urobilinogen (Negative) mg/dL Ur Leukocyte Aiyana ase (Negative) Urine RBC (0-2) /hpf Urine WBC (0-5) /hpf Ur Squamous Epith Cells (0-5) /hpf Amorphous Sediment Urine Bacteria (NONE) /hpf 08/17/20 08/17/20 08/17/20 Range/Units 16:52 17:41 17:41 WBC (4.0-10.0) 10^3/ uL RBC (4.1-5.3) 10^6/u L Hgb (11.5-15.3) g/dL Hct (37.0-47.0) % MCV (81-99) fL MCH (28.0-34.0) pg MCHC (30.0-36.0) g/dL RDW (12.1-15.1) % Plt Count (130-400) 10^3/c mm MPV (7.4-10.4) fL Neut % (Auto) % Lymph % (Auto) % [place] % (Auto) % Eos % (Auto) % Baso % (Auto) % Neut # (Auto) (1.8-7.7) 10^3/u L Lymph # (Auto) (0.8-4.8) 10^3/u L [place] # (Auto) (0.2-0.9) 10^3/u L Eos # (Auto) (0.0-0.8) 10^3/u L Baso # (Auto) (0.0-0.1) 10^3/u L Nucleated RBC % (a uto) % Nucleated RBCs # /100WBC PT (12.1-14.9) SECO NDS INR (0.8-1.2) Sodium 135 L Potassium 3.0 L Chloride 97 L Carbon Dioxide 25 Anion Gap 16.0 BUN 12 Creatinine 0.6 GFR Calculation Not Reportable Glucose 113 Calculated Osmolal ity 281 L Calcium 9.7 Magnesium 1.8 Total Bilirubin 0.4 AST 17 ALT 10 Alkaline Phosphata se 82 Troponin T Gen 5 n g/L 26 H (0-10) ng/L Total Protein 6.5 L Albumin 4.1 Globulin 2.4 Urine Color Straw (Yellow) Urine Appearance Clear (CLEAR) Urine pH 8 H (5-7) Ur Specific Gravit y 1.010 (1.005-1.030) Urine Protein Neg (Negative) Urine Glucose (UA) Norm (Normal) Urine Ketones Negative (Negative) Urine Blood Neg (Negative) Urine Nitrate Negative (Negative) Urine Bilirubin Neg (Negative) Prot Sulfosalicyli c Acd Negative (Negative) Urine Urobilinogen Norm (Negative) mg/dL Ur Leukocyte Aiyana ase 1+ H (Negative) Urine RBC None (0-2) /hpf Urine WBC 15-25 H (0-5) /hpf Ur Squamous Epith Cells 0-4 H (0-5) /hpf Amorphous Sediment Not Reportable Urine Bacteria 1+ H (NONE) /hpf Imaging Data^: CXR: Attestation: I personally reviewed and interpreted this imaging study as follows: My impression: No acute cardiopulmonary findings. CT Head: Radiologist's impression: [address] [address] [address] Scan Report Signed Patient: Jenna Nye V Unit #: [id number] : 1945 Acct#:O [id number] Age/Sex: 75 / F ADM Date: 08/17/20 Loc: ER Room/Bed: Attending Dr: Ordering Provider/Ordering MD: Maribel Odom DO Date of Service: 08/17/20 Procedure(s): CT head wo con* [id number] Accession Number(s): [id number] Report Number: [id number] PROCEDURE INFORMATION: Exam: CT Head Without Contrast Exam date and time: 08/17/2020 4:45 PM Age: 75 years old Clinical indication: Dizziness and numbness / parasthesia; Bilateral; Patient HX: C/O dizziness, weakness and numbness after a coughing episode TECHNIQUE: Imaging protocol: Computed tomography of the head without contrast. Radiation optimization: All CT scans at this facility use at least one of these dose optimization techniques: automated exposure control; mA and/or kV adjustment per patient size (includes targeted exams where dose is matched to clinical indication); or iterative reconstruction. COMPARISON: CT head wo con* [id number] 07/14/2020 8:51 PM RADIATION DOSE METRICS: Total DLP (mGy-cm): 634.36 FINDINGS: Brain: No evidence of active or acute intracranial pathologic process, hemorrhage, or trauma. Old left frontal lobe lacunar infarctions. Small vessel ischemic disease with senile periventricular leukomalacia. Cerebral and cerebellar atrophy with ventricular dilatation slightly greater than that anticipated for patient's chronological age. Patent cavum septum pellucidum which is a normal anatomical variant. Cerebral ventricles: No obstructive ventriculomegaly. Bones/joints: Unremarkable. No acute fracture. Paranasal sinuses: Evidence of mild chronic right ethmoid and frontal sinusitis. Mastoid air cells: Visualized mastoid air cells are well aerated. Soft tissues: Unremarkable. CT/CT head wo con* [id number] IMPRESSION: No evidence of active or acute intracranial pathologic process, hemorrhage, or trauma. Radiation Dose CTDIVOL = (mGy): DLP = 634.36 (mGy-cm) Dictated By: Esdras Richards Signed By: Esdras Richards Signed Date/Time: 08/17/201714 DD/ 13 Discharge Plan Discharge Patient Disposition: Placed in Observation Admit Provider: Ho Figueredo Clinical Impression: Esophagitis Condition: Stable Coding Level of Care Code ED Care Assistant for Chg Fwd Exam Comprehensive
[2020-08-17 17:23] LABS: INR 0.97 (0.8-1.2)
[2020-08-17] MEDS: cefTRIAXone 1,000 MG in sodium chloride 0.9% (plus) 50 ML 100 MG IV (17:42)
[2020-08-17 18:06] VITALS: BP 126/70; PULSE 68; RESP 16; O2SAT 98
[2020-08-17 18:19] LABS: Alanine Aminotransferase 10 U/L (0-33); Albumin Level 4.1 g/dL (3.5-5.2); Alkaline Phosphatase 82 IU/L (35-105); Aspartate Amino Transferase 17 U/L (0-32); Blood Urea Nitrogen 12 mg/dL (8-23); Calcium 9.7 mg/dL (8.5-10.5); Carbon Dioxide 25 mmol/L (22-29); Chloride 97 mmol/L (98-107); Globulin 2.4 g/dL (1.3-4.6); Glucose 113 mg/dL (65-115); Magnesium 1.8 mg/dL (1.7-2.3); Osmolality Calculated 281 mOsm/kg (285-295); Sodium 135 mmol/L (136-145); Total Bilirubin 0.4 mg/dL (0.15-1.2); Total Protein 6.5 g/dL (6.6-8.7)
[2020-08-17 18:21] LABS: Troponin T (5th) Once 26 ng/L (0-10)
[2020-08-17] MEDS: potassium chloride premix 100 ML 25 MEQ IV (18:50)
--- NOTE | 2020-08-17 19:20 | PM.HP ---
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 Patient is stating that overall her health is declining, she has lost significant amount of weight, her appetite is poor, whenever tries to eat solid food she gets decreased sensation in her neck, therefore she has tried to cut her food into small pieces which seems to be working in her favor, lately she has started noticing sinus congestion and excessive postnasal drip which gets worse on laying flat, today her symptoms were getting worse, or postnasal drip was causing choking sensation, she has not aspirated but she coughs a lot with postnasal drip and fluid intake. She has not noticed any chest pain, fever but is endorsing shortness of breath and excessive coughing. She is denying any signs of UTI. Of note, she was found to have significant carotid artery stenosis bilaterally and was recommended staged carotid endarterectomy with Dr. Jonas. Patient is denying syncopal events, however she is endorsing that with excessive coughing spells she felt dizzy but did not experience any falls or loss of consciousness. Diagnostics in the ER revealed hypokalemia, clinically he looks dehydrated, abnormal UA without signs of UTI, potassium has been repleted, fluconazole has been initiated for possible fungal dysphagia, Dr. Mercado has been consulted for EGD, Bedside swallow evaluation failed when I gave her orange juice, she started coughing and took her 1 to 2 minutes to clear her airways Review of Systems Const: Reports: chills, body aches and fatigue Eyes: Denies: change in vision ENMT: Reports: throat pain, hoarseness and dry mouth Card: Reports: pre-syncope and dyspnea on exertion; Denies: chest pain Resp: Reports: dyspnea and non-productive cough GI: Reports: diarrhea; Denies: abdominal pain : Denies: flank pain Musc: Denies: neck pain Skin/Breast: Denies: rash Neuro: Denies: headache(s) Psych: Denies: anxiety Endo: Denies: polyuria Hector/Lymph: Denies: easy bruising All/Imm: Denies: urticaria Medications/Allergies Home Medications Medication Instructions Recorded Confirmed Last Taken Type aspirin 81 mg tablet,delayed 81 mg PO DAILY 12/26/19 07/23/20 04/02/20 History release calcium carbonate 500 mg calcium 500 mg PO DAILY 12/26/19 07/23/20 04/15/20 History (1,250 mg) tablet letrozole 2.5 mg tablet 2.5 mg PO DAILY 12/26/19 07/23/20 04/15/20 History multivitamin,hp-fzoc-pchocsau 1 tab PO DAILY 12/26/19 07/23/20 04/15/20 History brimonidine 0.1 % eye drops 1 drop OPHTHALMIC (EYE) Q8H 12/28/19 07/23/20 04/16/20 History timolol 0.5 % eye drops 1 drop OPHTHALMIC (EYE) BID 12/28/19 07/23/20 04/16/20 History vit C 250 mg-vit E 200 unit-zinc 1 cap PO BID 12/28/19 07/23/20 04/15/20 History ox 12.5 nm-swgyji-auynie-zeax capsule pantoprazole 40 mg tablet,delayed 40 mg PO DAILY #90 tab 01/09/20 07/23/20 04/15/20 Rx release hydrochlorothiazide 12.5 mg capsule 12.5 mg PO DAILY #90 cap 01/30/20 07/23/20 04/16/20 Rx meloxicam 15 mg tablet 15 mg PO DAILY #30 tab 04/01/20 07/23/20 04/15/20 Rx hydrocodone-acetaminophen [[place]] 1 tab PO Q6H PRN #15 tab NS 04/16/20 07/23/20 Unknown Rx simvastatin 20 mg tablet 20 mg PO DAILY #90 tab 05/16/20 07/23/20 Unknown Rx Ativan 1 mg PO DAILY PRN 07/15/20 07/23/20 Unknown History Novolin R Flexpen See Rx Instructions .ROUTE .COMPLEX 07/15/20 07/23/20 Unknown History nifedipine 30 mg tablet,extended See Rx Instructions .ROUTE 08/12/20 Unknown Rx release .COMPLEX #30 each pantoprazole [Protonix] 40 mg PO Q12H 10 Days #20 tab 08/12/20 Unknown Rx Allergies Allergy/AdvReac Type Severity Reaction Status Date / Time adhesive tape Allergy ALGY-Rash Verified 07/23/20 14:17 Influenza Virus Vaccines Allergy ALGY-Rash Verified 07/28/20 07:47 PFSH Acute PFSH: Medical History Cervical disc disorder with myelopathy of mid-cervical region Chronic bronchitis Closed head injury GERD (gastroesophageal reflux disease) HX: breast cancer ER ID negative, 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 status post radiation therapy and hormonal therapy, currently on Femara Hyperlipidemia 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 disc disorder 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 Lumbar stenosis without neurogenic claudication Pain management contract signed Spondylolisthesis of cervical region 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 (cerebrum) Hx of stroke in February 07, 2019 Surgical History H/O total hip arthroplasty Right History of cholecystectomy History of hysterectomy / BSO / appendectomy History of left breast biopsy Port-A-Cath in place 04/16/20 Social History Smoking and tobacco status: never smoked Alcohol intake: never Lives independently: Yes Household members: spouse Marital status: Current occupational status: retired History of recent travel: No Vitals/I&O/Wt Last Vital Signs Temp 98.1 F 08/17/20 15:51 Pulse 68 08/17/20 18:06 Resp 16 08/17/20 18:06 BP 126/70 08/17/20 18:06 Pulse Ox 98 08/17/20 18:06 Weight last 48 hrs Weight 61.235 kg Physical Exam Narrative: EXAM NARRATIVE: Very pleasant female sitting in her bed Saturating well on room air Appears dehydrated Dry mucous membranes Failed bedside swallow evaluation S1, S2 no tachycardia or signs of heart failure Lungs are clear to auscultation no respiratory distress Abdomen soft nontender bowel sound present Lower extremity no edema Appropriate mood and affect Skin no sign of gangrene or ulcer Data : 08/17/20 16:51 08/17/20 17:41 A&P Assessment and plan (1) Dysphagia: Status: Acute (2) Bilateral carotid artery stenosis without cerebral infarction: Status: Acute (3) Gastric lymphoma: Status: Chronic (4) Port-A-Cath in place: Status: Chronic (5) Dehydration: Status: Acute (6) Hypokalemia: Status: Acute Additional A&P Information Dysphagia Failed swallow evaluation at bedside in the ER Has been experiencing postnasal drip. Choking sensation with fluid intake Considering immunocompromise state would start Diflucan N.p.o., D5 half-normal saline resuscitation EGD in the morning by Dr. Mercado If EGD is unremarkable she will need barium swallow study Dehydration: Continue D5 half-normal saline for resuscitation Hypokalemia: Repleted Gastric lymphoma R-CHOP treatment as per Dr. Thompson Patient is scheduled for PET scan next No acute decompensation Bilateral carotid artery stenosis: She will follow up with Dr. Jonas for staged bilateral carotid endarterectomy Abnormal UA without signs of UTI, avoid antibiotics N.p.o. D5 half-normal saline for resuscitation Avoid DVT prophylaxis with anticoagulation for now, start after EGD, SCDs DNR/DNI, Attestations Medical Necessity Statement*: Anticipating discharge in less than 48 hours, currently need EGD for dysphagia evaluation Time Spent in Patient Care: (>than 50% of time spent in counselling and/or direct pt care on unit). 50 minutes Coding Level of Care Code Acute Drill Sharpener Operator for Chg Fwd Diagnoses Dysphagia R13.10 Bilateral carotid artery stenosis without cerebral infarction I65.23 Gastric lymphoma C85.99 Port-A-Cath in place Z95.828 Dehydration E86.0 Hypokalemia E87.6
--- NOTE | 2020-08-17 19:36 | PM.CONSULT ---
Providers/Reason For Consult Consulting Physican/Specialty*: General Surgery Abdulkadir Mercado MD Reason for Consult*: Requesting EGD for dysphagia. Primary Care Provider: Mahamed Cuba MD History of Present Illness History of Present Illness Jenna Nye is a 75 year old female who was diagnosed with gastric lymphoma back in January. She has been undergoing treatment. She says for several months she has had some sinus drainage and feels like she is having some difficulty swallowing at times. Today she said she was having some sinus drainage and felt like she needed to cough something up. She tried but could not do it. She said my whole body went numb and I almost passed out. She denies any evidence of hematemesis, melena, etc. She has not noticed any white spots in her mouth. Dr. Thompson, who is actively treating the patient for lymphoma, was contacted and requested an EGD to rule out thrush, etc. Review of Systems General: Reports: 10 or more systems reviewed and unremarkable except in HPI and below Const: Denies: fever(s) ENMT: Reports: post nasal drip Resp: Reports: other (Chronic bronchitis) GI: Reports: dysphagia; Denies: melena Meds/Allergies Home Medications and Allergies Home Medications Medication Instructions Recorded Confirmed Last Taken Type aspirin 81 mg tablet,delayed 81 mg PO DAILY 12/26/19 07/23/20 04/02/20 History release calcium carbonate 500 mg calcium 500 mg PO DAILY 12/26/19 07/23/20 04/15/20 History (1,250 mg) tablet letrozole 2.5 mg tablet 2.5 mg PO DAILY 12/26/19 07/23/20 04/15/20 History multivitamin,gi-jksc-qjgppuzz 1 tab PO DAILY 12/26/19 07/23/20 04/15/20 History brimonidine 0.1 % eye drops 1 drop OPHTHALMIC (EYE) Q8H 12/28/19 07/23/20 04/16/20 History timolol 0.5 % eye drops 1 drop OPHTHALMIC (EYE) BID 12/28/19 07/23/20 04/16/20 History vit C 250 mg-vit E 200 unit-zinc 1 cap PO BID 12/28/19 07/23/20 04/15/20 History ox 12.5 bo-ojmhuu-xgtden-zeax capsule pantoprazole 40 mg tablet,delayed 40 mg PO DAILY #90 tab 01/09/20 07/23/20 04/15/20 Rx release hydrochlorothiazide 12.5 mg capsule 12.5 mg PO DAILY #90 cap 01/30/20 07/23/20 04/16/20 Rx meloxicam 15 mg tablet 15 mg PO DAILY #30 tab 04/01/20 07/23/20 04/15/20 Rx hydrocodone-acetaminophen [[place]] 1 tab PO Q6H PRN #15 tab NS 04/16/20 07/23/20 Unknown Rx simvastatin 20 mg tablet 20 mg PO DAILY #90 tab 05/16/20 07/23/20 Unknown Rx Ativan 1 mg PO DAILY PRN 07/15/20 07/23/20 Unknown History Novolin R Flexpen See Rx Instructions .ROUTE .COMPLEX 07/15/20 07/23/20 Unknown History nifedipine 30 mg tablet,extended See Rx Instructions .ROUTE 08/12/20 Unknown Rx release .COMPLEX #30 each pantoprazole [Protonix] 40 mg PO Q12H 10 Days #20 tab 08/12/20 Unknown Rx Allergies Allergy/AdvReac Type Severity Reaction Status Date / Time adhesive tape Allergy ALGY-Rash Verified 07/23/20 14:17 Influenza Virus Vaccines Allergy ALGY-Rash Verified 07/28/20 07:47 Current Medications Current Medications Generic Name Dose Route Start Last Admin Trade Name Freq PRN Reason Stop Dose Admin Sodium Chloride 1,000 mls @ 100 mls/hr 08/17/20 16:45 08/17/20 17:08 Sodium Chloride 0.9% IV 100 mls/hr .Q10H DEIDRE Administration Potassium Chloride 100 mls @ 25 mls/hr 08/17/20 18:30 08/17/20 18:50 K-[place] IV 08/17/20 22:29 25 mls/hr ONCE ONE Administration PFSH Acute PFSH: Medical History (Updated 08/17/20 @ 19:43 by Abdulkadir Mercado MD) Cervical disc disorder with myelopathy of mid-cervical region Chronic bronchitis Closed head injury GERD (gastroesophageal reflux disease) HX: breast cancer ER [place] negative, 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 status post radiation therapy and hormonal therapy, currently on Femara Hyperlipidemia 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 disc disorder 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 Lumbar stenosis without neurogenic claudication Pain management contract signed Spondylolisthesis of cervical region 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 (cerebrum) Hx of stroke in February 07, 2019 Surgical History (Updated 08/17/20 @ 19:38 by Abdulkadir Mercado MD) H/O total hip arthroplasty Right History of cholecystectomy History of hysterectomy / BSO / appendectomy History of left breast biopsy Port-A-Cath in place 04/16/20 Social History Smoking and tobacco status: never smoked Alcohol intake: never Lives independently: Yes Household members: spouse Marital status: Current occupational status: retired History of recent travel: No Vitals/I&O/Wt Last Vital Signs Temp 98.1 F 08/17/20 15:51 Pulse 68 08/17/20 18:06 Resp 16 08/17/20 18:06 BP 126/70 08/17/20 18:06 Pulse Ox 98 08/17/20 18:06 Weight last 48 hrs Weight 135 lb Physical Exam Narrative: EXAM NARRATIVE: The patient was encountered in her room in the emergency department. She does not appear to be in any distress. The pupils seem equal. No carotid bruits are heard. The oral cavity is without any white spots or other obvious mucosal abnormalities. The neck is free of any bruits. The lungs seem clear anteriorly. The heart is regular. The abdomen is moderately obese but is soft and nontender. No obvious masses are palpated. The extremities reveal no edema. Neurologically the patient appears to be grossly intact. Data Imaging^: CT Chest: Radiologist's impression: CT chest 08/11/2020 IMPRESSION: 1. Several small breast nodular densities with calcification, some appear new since the comparison, recommend follow-up mammogram. 2. Patulous esophagus with mild distal esophageal thickening. A&P Assessment and plan (1) Dysphagia: This is been going on for several months. The patient blames this on sinus drainage. She is currently being treated for gastric lymphoma. I have discussed an EGD with her in some detail; she went through 1 of these as recently as January and so she was familiar with the procedure. She agrees to proceed tomorrow morning. The patient will be kept n.p.o. after midnight and we will make arrangements for an EGD in the morning. Status: Acute (2) GERD (gastroesophageal reflux disease): The patient has an ongoing history of gastroesophageal reflux, but has been taking a proton pump inhibitor daily. Status: Acute Consult Attestations Medical Necessity Statement: See admitting service's notation. Coding Level of Care Code Acute Clip Loading Machine Adjuster for Chg Fwd Diagnoses Dysphagia R13.10 GERD (gastroesophageal reflux disease) K21.9
[2020-08-17 20:00] VITALS: BP 183/89; PULSE 70; RESP 16; O2SAT 98
--- NOTE | 2020-08-17 20:21 | PC.NURSE ---
pt report called to Safia NEVES in SBAR format.
[2020-08-17 20:23] LABS: Troponin 5 2HR 28.11 ng/L (0-10)
[2020-08-17 20:26] LABS: Troponin 5 2HR Delta 2.11 ABS# (0-10)
[2020-08-17 20:45] VITALS: BP 126/72; PULSE 66; RESP 18; TEMP 36.6; O2SAT 95
[2020-08-17] MEDS: dextrose 5%-sod chloride 0.45% 1,000 ML 30 ML IV (22:34)
[2020-08-17] MEDS: pantoprazole 40 mg SDV IVP (22:34)
[2020-08-17 23:58] VITALS: BP 143/70; PULSE 60; RESP 17; TEMP 36.8; O2SAT 95
[2020-08-18] VITALS (8 sets, daily range): BP systolic 136–145; BP diastolic 64–72; PULSE 59–67; RESP 16–18; TEMP 36.7–37.1; O2SAT 94–100
[2020-08-18] MEDS: fluconazole premix 100 MG in empty flexible container 1 EACH 50 MG IV (01:47)
[2020-08-18 05:56] LABS: Basophils # 0.1 10^3/uL (0.0-0.1); Basophils % 1.6 %; Eosinophils # 0.5 10^3/uL (0.0-0.8); Eosinophils % 7.5 %; Hematocrit 33.6 % (37.0-47.0); Hemoglobin 10.8 g/dL (11.5-15.3); Lymphocytes # 1.1 10^3/uL (0.8-4.8); Lymphocytes % 16.8 %; Mean Corpuscular HGB Conc 32.1 g/dL (30.0-36.0); Mean Corpuscular Hemoglobin 28.8 pg (28.0-34.0); Mean Corpuscular Volume 89.6 fL (81-99); Mean Platelet Volume 9.7 fL (7.4-10.4); Monocytes # 0.9 10^3/uL (0.2-0.9); Neutrophils # 3.77 10^3/uL (1.8-7.7); Neutrophils % 59.8 %; Nucleated Red Blood Cells % 0 %; Platelet Count 203 10^3/cmm (130-400); Red Blood Count 3.75 10^6/uL (4.1-5.3); Red Cell Distribution Width 16.6 % (12.1-15.1); White Blood Count 6.3 10^3/uL (4.0-10.0)
--- NOTE | 2020-08-18 07:44 | ANES.PREANE2 ---
Pre-Anesthetic Assessment Pre-Anesthetic Assessment: Height/Weight: Height 1.57 m Weight 61.235 kg Temp Pulse Resp BP Pulse Ox 98.7 F 59 L 18 145/68 97 08/18/20 07:39 08/18/20 07:39 08/18/20 07:39 08/18/20 07:39 08/18/20 07:39 Preop Diagnosis: GASTRIC LYMPHOMA requiring long-term IV access Proposed Procedure: Operation Date: 08/18/20 08:00 Proposed Procedures p EGD(Not Applicable) - Abdulkadir Mercado MD Familial anesthetic complications: denies Was Beta Wyatt taken within 24 hours: N/A Last Intake: 00:00 Social: Social History: No alcohol and No tobacco Exam: Pre-Anes Outpt Exam: alert and oriented x 3 Airway: Submandibular: WNL Cervical ROM: Other (decreased ROM ) MP: 2 Dentition: Full (dentures) Pulmonary: Pulmonary: MILLARD (uphill ) and None reported (sinus drainage increased cough ) CV/HEM: CV/HEM: HTN and Palp : : None reported Hepatic: Hepatic: None reported GI: GI: GERD, Hiatus hernia and None reported (stomach cancer) Metabolic: Metabolic: DM Comments: borderline Musc/skel: Musc/skel: Lower Back Pain and OA/DJD Neuropsych: Neuropsych: Anxiety Anesthetic Plan: ASA status: 3 Anesthesia: Anesthesia Evaluation and MAC Meds/Allergies Current Medications: Current Medications Generic Name Dose Route Start Last Admin Trade Name Freq PRN Reason Stop Dose Admin Fluconazole 100 mg / N/A 50 mls @ 50 mls/h r 08/17/20 21:53 08/18/20 01:47 IV 50 mls/hr Q24H DEIDRE Administration Dextrose/Sodium Ch loride 1,000 mls @ 30 ml s/hr 08/17/20 21:53 08/17/20 22:34 Dextrose 5%-Sod Chloride 0.45% IV 30 mls/hr .Q24H DIEDRE Administration Pantoprazole Sodiu m 40 mg 08/17/20 21:53 08/17/20 22:34 Protonix IVP 40 mg Q12H DEIDRE Administration PFSH Anesthesia PFSH: Medical History Cervical disc disorder with myelopathy of mid-cervical region Chronic bronchitis Closed head injury GERD (gastroesophageal reflux disease) HX: breast cancer ER [place] negative, 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 status post radiation therapy and hormonal therapy, currently on Femara Hyperlipidemia 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 disc disorder 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 Lumbar stenosis without neurogenic claudication Pain management contract signed Spondylolisthesis of cervical region 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 (cerebrum) Hx of stroke in February 07, 2019 Surgical History H/O total hip arthroplasty Right History of cholecystectomy History of hysterectomy / BSO / appendectomy History of left breast biopsy Port-A-Cath in place 04/16/20 Social History Smoking and tobacco status: never smoked Alcohol intake: never Lives independently: Yes Household members: spouse Marital status: Current occupational status: retired History of recent travel: No Data Anesthesia CBC & Chem 7: 08/18/20 05:25 08/17/20 17:41 Other Labs: Laboratory Results - last 48 hr 08/17/20 08/17/20 08/17/20 16:51 16:51 16:51 WBC 8.8 RBC 4.46 Hgb 12.6 Hct 39.8 MCV 89.2 MCH 28.3 MCHC 31.7 RDW 16.7 H Plt Count 228 MPV 10.0 Neut % (Auto) 67.5 Lymph % (Auto) 14.4 Stephens % (Auto) 13.1 Eos % (Auto) 3.2 Baso % (Auto) 1.5 Neut # (Auto) 5.93 Lymph # (Auto) 1.3 Stephens # (Auto) 1.2 H Eos # (Auto) 0.3 Baso # (Auto) 0.1 Nucleated RBC % (auto) 0 Nucleated RBCs # 0.0 PT 13.20 INR 0.97 Sodium Cancelled Potassium Cancelled Chloride Cancelled Carbon Dioxide Cancelled Anion Gap Cancelled BUN Cancelled Creatinine Cancelled GFR Calculation Cancelled Glucose Cancelled Calculated Osmolality Cancelled Calcium Cancelled Magnesium Cancelled Total Bilirubin Cancelled AST Cancelled ALT Cancelled Alkaline Phosphatase Cancelled Troponin T Gen 5 ng/L Troponin T 120 Minute Delta Troponin T Total Protein Cancelled Albumin Cancelled Globulin Cancelled Urine Color Urine Appearance Urine pH Ur Specific [place] Urine Protein Urine Glucose (UA) Urine Ketones Urine Blood Urine Nitrate Urine Bilirubin Prot Sulfosalicylic Acd Urine Urobilinogen Ur Leukocyte Esterase Urine RBC Urine WBC Ur Squamous Epith Cells Amorphous Sediment Urine Bacteria 08/17/20 08/17/20 08/17/20 16:52 17:41 17:41 WBC RBC Hgb Hct MCV MCH MCHC RDW Plt Count MPV Neut % (Auto) Lymph % (Auto) Stephens % (Auto) Eos % (Auto) Baso % (Auto) Neut # (Auto) Lymph # (Auto) Stephens # (Auto) Eos # (Auto) Baso # (Auto) Nucleated RBC % (auto) Nucleated RBCs # PT INR Sodium 135 L Potassium 3.0 L Chloride 97 L Carbon Dioxide 25 Anion Gap 16.0 BUN 12 Creatinine 0.6 GFR Calculation Not Reportable Glucose 113 Calculated Osmolality 281 L Calcium 9.7 Magnesium 1.8 Total Bilirubin 0.4 AST 17 ALT 10 Alkaline Phosphatase 82 Troponin T Gen 5 ng/L 26 H Troponin T 120 Minute Delta Troponin T Total Protein 6.5 L Albumin 4.1 Globulin 2.4 Urine Color Straw Urine Appearance Clear Urine pH 8 H Ur Specific [place] 1.010 Urine Protein Neg Urine Glucose (UA) Norm Urine Ketones Negative Urine Blood Neg Urine Nitrate Negative Urine Bilirubin Neg Prot Sulfosalicylic Acd Negative Urine Urobilinogen Norm Ur Leukocyte Esterase 1+ H Urine RBC None Urine WBC 15-25 H Ur Squamous Epith Cells 0-4 H Amorphous Sediment Not Reportable Urine Bacteria 1+ H 08/17/20 08/18/20 19:51 05:25 WBC 6.3 RBC 3.75 L Hgb 10.8 L Hct 33.6 L MCV 89.6 MCH 28.8 MCHC 32.1 RDW 16.6 H Plt Count 203 MPV 9.7 Neut % (Auto) 59.8 Lymph % (Auto) 16.8 Stephens % (Auto) 14.0 Eos % (Auto) 7.5 Baso % (Auto) 1.6 Neut # (Auto) 3.77 Lymph # (Auto) 1.1 Stephens # (Auto) 0.9 Eos # (Auto) 0.5 Baso # (Auto) 0.1 Nucleated RBC % (auto) 0 Nucleated RBCs # 0.0 PT INR Sodium Potassium Chloride Carbon Dioxide Anion Gap BUN Creatinine GFR Calculation Glucose Calculated Osmolality Calcium Magnesium Total Bilirubin AST ALT Alkaline Phosphatase Troponin T Gen 5 ng/L Troponin T 120 Minute 28.11 H Delta Troponin T 2.11 Total Protein Albumin Globulin Urine Color Urine Appearance Urine pH Ur Specific [place] Urine Protein Urine Glucose (UA) Urine Ketones Urine Blood Urine Nitrate Urine Bilirubin Prot Sulfosalicylic Acd Urine Urobilinogen Ur Leukocyte Esterase Urine RBC Urine WBC Ur Squamous Epith Cells Amorphous Sediment Urine Bacteria Cardiac Studies: No Data to Display
--- NOTE | 2020-08-18 07:57 | P.PN_ITS ---
Subjective Subjective: Interval history: The patient denies any problems overnight. She says she still feels well. She is ready to proceed with the EGD. She says she hope she gets to go home today. Vitals/I&O/Wt Last Vital Signs Temp 98.7 F 08/18/20 07:39 Pulse 59 L 08/18/20 07:39 Resp 18 08/18/20 07:39 BP 145/68 08/18/20 07:39 Pulse Ox 97 08/18/20 07:39 08/17/20 08/18/20 08/18/20 22:59 06:59 14:59 Intake Total 0 / 0 Balance 0 / 0 Weight last 48 hrs Weight 135 lb Physical Exam Narrative: EXAM NARRATIVE: No significant change. Data : 08/18/20 05:25 08/17/20 17:41 A&P Assessment and plan (1) Dysphagia: This is been going on for several months. The patient blames this on sinus drainage. She is currently being treated for gastric lymphoma. I have discussed an EGD with her in some detail; she went through 1 of these as recently as January and so she was familiar with the procedure. She agrees to proceed. EGD this morning. Status: Acute (2) GERD (gastroesophageal reflux disease): The patient has an ongoing history of gastroesophageal reflux, but has been taking a proton pump inhibitor daily. Status: Acute Attestations Medical Necessity Statement*: See admitting service's notation. Coding Level of Care Code Acute Testing And Regulating Chief for [facility] Fwd Diagnoses Dysphagia R13.10 GERD (gastroesophageal reflux disease) K21.9
--- NOTE | 2020-08-18 08:17 | ANE.PACU2 ---
Inpatient post-anesthesia follow up: Airway intact: Yes Vital signs: Temperature 98.7 F Pulse Rate [Left] 65 Pulse Rate 60 Respiratory Rate 18 Blood Pressure [Le ft Arm] 123/73 Blood Pressure 145/68 Pulse Oximetry 97 Oxygen Delivery Me thod Room Air Oxygen Flow Rate Fraction of Inspir ed Oxygen Hydration adequate: Yes Nausea and vomiting: No Pain level: 0/10 Mental status: Baseline
--- NOTE | 2020-08-18 08:30 | PM.PACU ---
PACU note Post-Anesthesia Exam: awake and vital signs stable Disposition: back to floor
[2020-08-18] MEDS: pantoprazole 40 mg SDV IVP (08:46)
[2020-08-18 08:58] LABS: Anion Gap 12.7 (5-19); Blood Urea Nitrogen 9 mg/dL (8-23); Calcium 9.5 mg/dL (8.5-10.5); Carbon Dioxide 24 mmol/L (22-29); Chloride 105 mmol/L (98-107); Glucose 109 mg/dL (65-115); Osmolality Calculated 285 mOsm/kg (285-295); Potassium 3.7 mmol/L (3.5-5.1); Sodium 138 mmol/L (136-145)
--- NOTE | 2020-08-18 10:07 | PC.CHAP ---
Pastoral Care Encounter/Spiritual Assessment Type of Contact [] Declined consumer services advisor visit [] Patient/Family/Request visit [] Outpatient visit [] Follow-up visit [] Physician referral [] Code/Alert [] Routine visit [] Staff referral [] Actively dying [] Patient sleeping [] Family support [] [] Out of room [] Palliative care [] [] Receiving care in room [] Pre-surgical visit [] Trauma [] Long length of stay [] ICU visit [] Other: Relational/Emotional Strength [] Patient feels connected with others/family/visitors/staff [] Distress [] Loneliness/isolation [] Abandonment Spirituality of Patient [x] Person of Kylie [x] Attends Mandaen of their Kylie [x] Believes in Prayer [] Reads Bible or Cheondoism materials [] There are Spiritual issues to be addressed Life Coach Interventions [x] Prayer [x] Active listening [x] Non-anxious presence [x] Spiritual/emotional support [] Crisis/trauma care [] Spiritual counseling [] Bereavement support [] Provided bereavement packet [] Provided Bible/devotional materials [] Provided toy/stuffed animal, coloring book to patient or family member [] Provided Communion [] Anointing/[place] [] Salvation [x] Completed spiritual assessment [] Other: Impact on Illness or Injury [] Angry [] Fearful [] Anxious [] Often cries [] Exhaustion [] Unable to work [] Unable to attend taoism [] Unable to walk/stand [] Unable to read [] Unable to drive [] Unable to eat/drink [] Unable to sleep [] Unable to be with family [] Patient intubated [] Other: Summary Chaplains prayed with Patient. Time spent with patient 8 minutes.
--- NOTE | 2020-08-18 22:37 | PM.DCS ---
Discharge Providers Date of Admission: 08/17/20 19:27 Date of Discharge: August 18, 2020 Attending Provider at Admission: Ho Figueredo MD Attending Provider at Discharge: Anayeli Brandon MD Primary Care Provider: Mahamed Cuba MD Diagnoses at Discharge Discharge Diagnosis (1) Dysphagia: Status: Acute (2) GERD (gastroesophageal reflux disease): Status: Acute Reason for Visit Reason for Visit: Swallowed something, whole body went numb Hospital Course Discharge Summary: Jenna Nye is a 75 year old female carries diagnosis of high-grade gastric lymphoma(last chemotherapy 3-4 weeks ago R-CHOP),ER/MS positive HER-2/esvin 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 Mercado that was overall unrevealing. She was advised to undergo a barium swallow testing for further assessment however declined the same and wished to return home. She was tolerating a GI soft diet post the procedure. Recommeded to follow up with her PCP in the next 3-4 days. 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 Discharge Data Data Completed and Pending: Completed Studies During Hospitalization Category Date Time Status CT head wo con* 7 0450 Stat Cat Scan 08/17/20 16:38 Completed XR chest 1V richard ble 30246 Stat Exams 08/17/20 16:38 Completed Pending at discharge Category Date Time Status ES surgery / GI i mages Routine Exams 08/18/20 08:08 Ordered Urine Culture Sta t Lab 08/17/20 16:52 Received Labs from last 24 hours 08/18/20 08/18/20 05:25 05:25 WBC 6.3 RBC 3.75 L Hgb 10.8 L Hct 33.6 L MCV 89.6 MCH 28.8 MCHC 32.1 RDW 16.6 H Plt Count 203 MPV 9.7 Neut % (Auto) 59.8 Lymph % (Auto) 16.8 Cooper % (Auto) 14.0 Eos % (Auto) 7.5 Baso % (Auto) 1.6 Neut # (Auto) 3.77 Lymph # (Auto) 1.1 Cooper # (Auto) 0.9 Eos # (Auto) 0.5 Baso # (Auto) 0.1 Nucleated RBC % (a uto) 0 Nucleated RBCs # 0.0 Sodium 138 Potassium 3.7 Chloride 105 Carbon Dioxide 24 Anion Gap 12.7 BUN 9 Creatinine 0.7 GFR Calculation Not Reportable Glucose 109 Calculated Osmolal ity 285 Calcium 9.5 Vitals: Last Vital Signs Temp 98.0 F 08/18/20 08:15 Pulse 59 L 08/18/20 12:34 Resp 18 08/18/20 12:34 BP 136/72 08/18/20 12:34 Pulse Ox 100 08/18/20 12:34 Discharge Plan Discharge Patient Disposition: Home Condition: Stable Prescriptions: Continued aspirin 81 mg tablet,delayed release (DR/EC) 81 mg PO DAILY RF: 0 Hold Instructions: Resume on 04/20/20. Complete Multivitamin Tablet 1 tab PO DAILY RF: 0 calcium carbonate [Calcium 500] 500 mg calcium (1,250 mg) tablet 500 mg PO DAILY RF: 0 letrozole 2.5 mg tablet 2.5 mg PO DAILY RF: 0 Alphagan P 0.1 % drops 1 drop ophthalmic (eye) Q8H RF: 0 timolol 0.5 % drops 1 drop ophthalmic (eye) BID RF: 0 ICaps AREDS2 250 mg-200 unit -12.5 mg-1 mg capsule 1 cap PO BID RF: 0 Protonix 40 mg tablet,delayed release (DR/EC) 40 mg PO DAILY Qty: 90 RF: 3 hydrochlorothiazide 12.5 mg capsule 12.5 mg PO DAILY Qty: 90 RF: 3 meloxicam 15 mg tablet 15 mg PO DAILY Qty: 30 RF: 3 Hold Instructions: Resume on 04/20/20. simvastatin 20 mg tablet 20 mg PO DAILY Qty: 90 RF: 0 nifedipine 30 mg tablet extended release See Rx Instructions .ROUTE .COMPLEX Qty: 30 RF: 3 Ativan 1 mg Tablet 1 mg PO DAILY PRN (Reason: Nausea) RF: 0 Novolin R Flexpen 100 unit/mL (3 mL) Insulin Pen See Rx Instructions .ROUTE .COMPLEX RF: 0 Protonix 40 mg tablet,delayed release (DR/EC) 40 mg PO Q12H 10 Days Qty: 20 RF: 0 hydrocodone-acetaminophen [[place]] 5-325 mg tablet 1 tab PO Q6H PRN (Reason: pain) Qty: 15 RF: 0 Discharge Orders: Discharge Order (Routine); Ordered 08/18/20 Ordered By: Anayeli Brandon Referrals: Mahamed Cuba MD [Primary Care Provider] - 4-7 days Discharge Diet: GI Soft Discharge Activity: Resume usual activity Patient Instructions: Dehydration - Adult, Hyponatremia (GEN), Gastroesophageal Reflux Disease (GEN) Discharge Date/Time: 08/18/20 13:04 Discharge Attestations Time Spent in Discharge Care*: less than 30 min Quality Metrics Clinical Quality Measures During this hospital stay, did patient experience: None Coding Level of Care Code Acute Life Skills Educator for Chg Fwd Diagnoses Dysphagia R13.10 GERD (gastroesophageal reflux disease) K21.9
== END 2020-08-18 13:04 | disposition home or self-care (01) ==
LOC: ER 16:34 → MEDSURG 19:52
PROVIDERS: Emergency Medicine; Surgery; Admitting Provider Internal Medicine; PCP Internal Medicine; Visit Provider Student in an Organized Health Care Education/Training Program
PROC: 0DJ08ZZ Inspection of Upper Intestinal Tract, Via Natural or Artificial Opening Endoscopic (ICD-10-PCS; CPT 43235; principal; 2020-08-18 08:00)
DX: R13.10 Dysphagia, unspecified (principal); I65.23 Occlusion and stenosis of bilateral carotid arteries; C85.99 Non-Hodgkin lymphoma, unspecified, extranodal and solid organ sites; Z95.828 Presence of other vascular implants and grafts; E86.0 Dehydration; E87.6 Hypokalemia; K21.9 Gastro-esophageal reflux disease without esophagitis; J42 Unspecified chronic bronchitis; Z79.82 Long term (current) use of aspirin; Z85.3 Personal history of malignant neoplasm of breast; E11.9 Type 2 diabetes mellitus without complications; Z79.4 Long term (current) use of insulin; I10 Essential (primary) hypertension; M19.90 Unspecified osteoarthritis, unspecified site; F41.9 Anxiety disorder, unspecified
CPT/HCPCS: 12345; 36415; 43239; 70450; 71045; 80048; 80053; 81001; 83735; 84484; 85025; 85610; 87086; 93005; 96365; 96366; 96367; 96375; 99284; 99285; C9113; G0378; J0696; J1450; J2405; J3480; J7030; J7799

== ENCOUNTER 2020-08-28 05:39 | Outpatient (RCR) | payer MEDICARE, OTHER, SELFPAY ==
[2020-08-20 10:04] LABS: Basophils # 0.1 10^3/uL (0.0-0.1); Basophils % 0.9 %; Eosinophils # 0.3 10^3/uL (0.0-0.8); Eosinophils % 3.3 %; Hematocrit 35.1 % (37.0-47.0); Hemoglobin 11.5 g/dL (11.5-15.3); Lymphocytes # 1.1 10^3/uL (0.8-4.8); Lymphocytes % 13.1 %; Mean Corpuscular HGB Conc 32.8 g/dL (30.0-36.0); Mean Corpuscular Volume 88.4 fL (81-99); Mean Platelet Volume 9.1 fL (7.4-10.4); Monocytes # 0.9 10^3/uL (0.2-0.9); Neutrophils # 6.13 10^3/uL (1.8-7.7); Neutrophils % 71.5 %; Nucleated Red Blood Cells % 0 %; Platelet Count 227 10^3/cmm (130-400); Red Blood Count 3.97 10^6/uL (4.1-5.3); Red Cell Distribution Width 16.3 % (12.1-15.1); White Blood Count 8.6 10^3/uL (4.0-10.0)
[2020-08-20 10:22] LABS: Alanine Aminotransferase 11 U/L (0-33); Albumin Level 4.2 g/dL (3.5-5.2); Alkaline Phosphatase 85 IU/L (35-105); Anion Gap 14.5 (5-19); Aspartate Amino Transferase 20 U/L (0-32); Blood Urea Nitrogen 12 mg/dL (8-23); Calcium 9.7 mg/dL (8.5-10.5); Carbon Dioxide 27 mmol/L (22-29); Chloride 95 mmol/L (98-107); Globulin 2.6 g/dL (1.3-4.6); Glucose 139 mg/dL (65-115); Osmolality Calculated 278 mOsm/kg (285-295); Potassium 3.5 mmol/L (3.5-5.1); Sodium 133 mmol/L (136-145); Total Bilirubin 0.4 mg/dL (0.15-1.2); Total Protein 6.8 g/dL (6.6-8.7)
[2020-08-26 10:46] LABS: Add Urine Microscopic? YES; Bilirubin Urine Neg (Negative); Blood Urine Neg (Negative); Glucose Urine UA Norm (Normal); Ketones Urine Negative (Negative); Leukocyte Esterase Urine Trace (Negative); Nitrate Urine Negative (Negative); Protein Urine Neg (Negative); Urine Appearance Clear (CLEAR); Urine Color Yellow (Yellow); Urobilinogen Urine Norm (Negative); pH Urine 6 (5-7)
[2020-08-26 10:50] LABS: Add Urine Culture? No; Bacteria Urine TRACE /hpf; Transitional Epi Cells Urine 0-4 /hpf; WBC Urine 0-4 /hpf (0-5)
--- NOTE | 2020-08-27 | CT_ITS ---
Radiation Therapy Planning CT images; total exam DLP: 1222.67 mGy-cm MTDD
== END 2020-08-31 23:59 | disposition home or self-care (01) ==
LOC: ONCMED 05:39
PROVIDERS: Nurse Practitioner; PCP Internal Medicine; Visit Provider Radiology Radiation Oncology
DX: C85.99 Non-Hodgkin lymphoma, unspecified, extranodal and solid organ sites (principal); Z85.3 Personal history of malignant neoplasm of breast; Z78.0 Asymptomatic menopausal state; K44.9 Diaphragmatic hernia without obstruction or gangrene; E11.9 Type 2 diabetes mellitus without complications; I10 Essential (primary) hypertension; M19.90 Unspecified osteoarthritis, unspecified site; Z92.21 Personal history of antineoplastic chemotherapy; Z92.23 Personal history of estrogen therapy; Z96.641 Presence of right artificial hip joint
CPT/HCPCS: 77300; 77301; 77334; 77338; 80053; 81001; 85025; 99214; 99215

== ENCOUNTER 2020-09-18 12:03 | Emergency (ER) | payer MEDICARE, OTHER, SELFPAY ==
[2020-09-18 12:22] VITALS: BP 140/66; PULSE 62; RESP 18; TEMP 36.3; O2SAT 99; BMI 26.9
--- NOTE | 2020-09-18 12:34 | ECG_ITS ---
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: : 1945 Requested By: Parmjit Marr Order Number: [id number] Reading MD: BISI GARCIA Measurements Intervals [place] Rate: 66 P: 75 PA: 212 QRS: 22 QRSD: 89 T: -25 QT: 404 QTc: 426 Interpretive Statements SINUS RHYTHM WITH FIRST DEGREE AV BLOCK NONSPECIFIC ST & T-WAVE ABNORMALITY Compared to ECG 08/17/2020 17:21:17 First degree AV block now present T-wave abnormality now present Ventricular premature complex(es) no longer present Myocardial infarct finding no longer present Electronically Signed On 09-18-2020 19:37:11 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
--- NOTE | 2020-09-18 12:34 | CT_ITS ---
WS: [id number] CT HEAD NONCONTRAST HISTORY: Closed head injury. TECHNIQUE: Contiguous axial imaging performed through the brain in 2.5 mm imaging. Bone and soft tiss ue windows. Sagittal and coronal reformats reviewed. All CT scans at [facility] use at le ast one of these dose optimization techniques: automated exposure control; mA and/or kV adjustment pe r patient size (includes targeted exams where dose is matched to clinical indication); or iterative r econstruction. DLP: 673.18 mGy.cm COMPARISON: 08/17/2020 No acute intracranial hemorrhage, midline shift or mass effect. Moderate atrophy and chronic ischemic disease. Small lacunar infarcts in the external capsules bilate rally. Ventricles: Ventricles are mildly prominent. Incidental note is made of a cavum septum pellucidum wh ich is a normal variant. Paranasal sinuses: Small amount mucoperiosteal thickening in the floor the RIGHT maxillary sinus. Par tial opacification of the anterior RIGHT ethmoid air cells Mastoid air cells: Well pneumatized. Calvarium and scalp: Skull is intact with no soft tissue edema or swelling. Moderate atherosclerosis intracranial carotid arteries. CT/CT head wo con* [id number] IMPRESSION: 1. Moderate atrophy and chronic ischemic disease. No acute interval change sin ce 08/17/2020. 2. No skull fracture.
[2020-09-18 13:01] LABS: Add Urine Microscopic? YES; Bilirubin Urine Neg (Negative); Blood Urine Neg (Negative); Glucose Urine UA Norm (Normal); Ketones Urine 1+ (Negative); Leukocyte Esterase Urine Trace (Negative); Nitrate Urine Negative (Negative); Protein Urine Neg (Negative); Urine Appearance Clear (CLEAR); Urine Color Yellow (Yellow); Urobilinogen Urine Norm (Negative); pH Urine 7 (5-7)
[2020-09-18 13:09] LABS: Bacteria Urine 1+ /hpf; Hyaline Casts Urine 0-4 /lpf; RBC Urine 0-4 /hpf (0-2); Squamous Epithelial Cell Urine 0-4 /hpf (0-5)
[2020-09-18 13:12] VITALS: PULSE 71; RESP 18; O2SAT 100
--- NOTE | 2020-09-18 13:28 | ED_ITS ---
HPI - Fall General: Chief Complaint: Fall Stated Complaint: FELL AT [employer] TODAY, HIT R SIDE OF HEAD Time Seen by Provider: 09/18/20 12:33 History of Present Illness: HPI Narrative: 75-year-old female presents to the emergency room with complaint of falling. She stumbled or tripped over like a good [employer] fell and hit her head. There is no loss of consciousness. He also has a small abrasion of the extensor surface of the right knee very superficial abrasion. She was ambulatory immediately after the fall but got lightheaded dizzy sick to her stomach and ended up coming to the emergency room. She denies any chest or abdominal pain or any shortness of breath any other recent illness or flulike symptoms. MD complaint: fall Onset (ago): minute(s) Fall from: standing Fall witnessed: yes, by family Place fall occurred: street Loss of consciousness: None Prolonged down time: no Symptoms prior to fall: none Context: tripped/slipped Location of injury: head Location of injury - extremities: Right: lower leg Severity: mild Quality: spasming Associated symptoms-after fall: Denies abdominal pain or chest pain Review of Systems Const: Denies: fever(s), chills, body aches, change in appetite, fatigue or malaise ENMT: Denies: throat pain, ear or mastoid pain, nasal discharge or nasal congestion Card: Denies: chest pain, edema, dyspnea on exertion or orthopnea Resp: Denies: dyspnea, productive cough or non-productive cough GI: Denies: abdominal pain, nausea, vomiting, hematemesis, coffee ground emesis, diarrhea, constipation, bloating, hematochezia or melena : Denies: flank pain, difficulty voiding, dysuria, urinary frequency or uri nary urgency Skin/Breast: Denies: rash or pruritus PFSH ED PFSH: Medical History Cervical disc disorder with myelopathy of mid-cervical region Chronic bronchitis Closed head injury GERD (gastroesophageal reflux disease) HX: breast cancer ER ID negative, 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 status post radiation therapy and hormonal therapy, currently on Femara Hyperlipidemia 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 disc disorder 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 region 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 Lumbar stenosis without neurogenic claudication Pain management contract signed Spondylolisthesis of cervical region 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 (cerebrum) Hx of stroke in February 07, 2019 Surgical History H/O total hip arthroplasty Right History of cholecystectomy History of hysterectomy / BSO / appendectomy History of left breast biopsy Port-A-Cath in place 04/16/20 Social History Smoking and tobacco status: never smoked Alcohol intake: never Lives independently: Yes Household members: spouse Marital status: Current occupational status: retired History of recent travel: No Physical Exam Const: COMMON NORMALS: no acute distress GENERAL APPEARANCE: cooperative and comfortable ORIENTATION/CONSCIOUSNESS: Yes oriented to person, Yes oriented to place and Yes oriented to time HENMT: COMMON NORMALS: normocephalic, atraumatic and hearing grossly normal bilaterally HEAD & SCALP: normocephalic and atraumatic Eye: COMMON NORMALS: Equal, round and reactive pupils present, EOMs intact bilaterally, conjunctivae normal and no scleral icterus CONJUNCTIVA: Yes conjunctivae normal PUPIL: Yes Equal, round and reactive pupils present Neck/C-Spine: COMMON NORMALS: no JVD Resp: COMMON NORMALS: normal respiratory effort, No retractions, No use of accessory muscles and clear to auscultation bilaterally AUSCULTATION: clear to auscultation bilaterally Cardio: COMMON NORMALS: no JVD, regular rate, regular rhythm and No murmurs present (Cardio) RATE: regular rate RHYTHM: regular rhythm GI: COMMON NORMALS: Soft to palpation and No hepatosplenomegaly present AUSCULTATION: Yes normoactive bowel sounds PALPATION: Yes Soft to palpation, No Tenderness to palpation present (GI), No Guarding due to palpation present (GI) and Yes No hepatosplenomegaly present Extremity: COMMON NORMALS: normal to inspection, capillary refill normal, no clubbing, cyanosis or edema, no calf tenderness and no pedal edema Neuro: SENSORIUM/ORIENTATION: Yes oriented to person, Yes oriented to place and Yes oriented to time Skin: COMMON NORMALS: no rashes or lesions noted GENERAL SKIN EXAM: no rashes or lesions noted Course Vital Signs: Vital signs: Vital Signs Temperature 97.4 F L 11/18/20 12:22 Pulse Rate 65 09/18/20 13:45 Respiratory Rate 18 09/18/20 13:45 Blood Pressure 156/63 09/18/20 13:45 Pulse Oximetry 100 09/18/20 13:45 MDM - Fall MDM Narrative: Medical decision making narrative: Exam essentially normal, CT also read as normal. Reviewed findings with patient examination of the patient's has no other significant findings she prefer to go home I do not find any reason to admit her neck her fall was due to just simply stumbling or tripping we will have her just have her follow-up as needed. Lab Data: Labs: Lab Results 09/18/20 09/18/20 09/18/20 Range/Units 12:30 13:20 13:20 WBC 4.4 (4.0-10.0) 10^3/ uL RBC 4.73 (4.1-5.3) 10^6/u L Hgb 13.6 (11.5-15.3) g/dL Hct 42.0 (37.0-47.0) % MCV 88.8 (81-99) fL MCH 28.8 (28.0-34.0) pg MCHC 32.4 (30.0-36.0) g/dL RDW 15.0 (12.1-15.1) % Plt Count 170 (130-400) 10^3/c mm MPV 8.9 (7.4-10.4) fL Neut % (Auto) 72.8 % Lymph % (Auto) 4.1 % [place] % (Auto) 20.3 % Eos % (Auto) 2.1 % Baso % (Auto) 0.7 % Neut # (Auto) 3.20 (1.8-7.7) 10^3/u L Lymph # (Auto) 0.2 L (0.8-4.8) 10^3/u L [place] # (Auto) 0.9 (0.2-0.9) 10^3/u L Eos # (Auto) 0.1 (0.0-0.8) 10^3/u L Baso # (Auto) 0.0 (0.0-0.1) 10^3/u L Nucleated RBC % (a uto) 0 % Nucleated RBCs # 0.0 /100WBC Carbon Dioxide 28 (22-29) mmol/L Anion Gap 13.8 (5-19) BUN 9 (8-23) mg/dL Creatinine 0.5 (0.5-0.9) mg/dL GFR Calculation Not Reportable Glucose 113 (65-115) mg/dL Calcium 9.8 (8.5-10.5) mg/dL Total Bilirubin 0.3 (0.15-1.2) mg/dL AST 17 (0-32) U/L ALT 10 (0-33) U/L Alkaline Phosphata se 82 (35-105) IU/L Total Protein 6.8 (6.6-8.7) g/dL Albumin 4.2 (3.5-5.2) g/dL Globulin 2.6 (1.3-4.6) g/dL Urine Color Yellow (Yellow) Urine Appearance Clear (CLEAR) Urine pH 7 (5-7) Ur Specific Gravit y 1.010 (1.005-1.030) Urine Protein Neg (Negative) Urine Glucose (UA) Norm (Normal) Urine Ketones 1+ H (Negative) Urine Blood Neg (Negative) Urine Nitrate Negative (Negative) Urine Bilirubin Neg (Negative) Urine Urobilinogen Norm (Negative) mg/dL Ur Leukocyte Aiyana ase Trace H (Negative) Urine RBC 0-4 H (0-2) /hpf Urine WBC 10-15 H (0-5) /hpf Ur Squamous Epith Cells 0-4 H (0-5) /hpf Amorphous Sediment Not Reportable Urine Bacteria 1+ H (NONE) /hpf Hyaline Casts 0-4 H /lpf Discharge Plan Discharge Patient Disposition: Home Clinical Impression: Fall Condition: Stable Prescriptions: No Action aspirin 81 mg tablet,delayed release (DR/EC) 81 mg PO DAILY RF: 0 Hold Instructions: Resume on 04/20/20. Complete Multivitamin Tablet 1 tab PO DAILY RF: 0 calcium carbonate [Calcium 500] 500 mg calcium (1,250 mg) tablet 500 mg PO DAILY RF: 0 letrozole 2.5 mg tablet 2.5 mg PO DAILY RF: 0 Alphagan P 0.1 % drops 1 drop ophthalmic (eye) Q8H RF: 0 timolol 0.5 % drops 1 drop ophthalmic (eye) BID RF: 0 ICaps AREDS2 250 mg-200 unit -12.5 mg-1 mg capsule 1 cap PO BID RF: 0 Protonix 40 mg tablet,delayed release (DR/EC) 40 mg PO DAILY Qty: 90 RF: 3 hydrochlorothiazide 12.5 mg capsule 12.5 mg PO DAILY Qty: 90 RF: 3 meloxicam 15 mg tablet 15 mg PO DAILY Qty: 30 RF: 3 Hold Instructions: Resume on 04/20/20. simvastatin 20 mg tablet 20 mg PO DAILY Qty: 90 RF: 0 nifedipine 30 mg tablet extended release See Rx Instructions .ROUTE .COMPLEX Qty: 30 RF: 3 Ativan 1 mg Tablet 1 mg PO DAILY PRN (Reason: Nausea) RF: 0 Novolin R Flexpen 100 unit/mL (3 mL) Insulin Pen See Rx Instructions .ROUTE .COMPLEX RF: 0 hydrocodone-acetaminophen [[place]] 5-325 mg tablet 1 tab PO Q6H PRN (Reason: pain) Qty: 15 RF: 0 Discharge Orders: Discharge Order (Routine); Ordered 09/18/20 Ordered By: Parmjit Ovalle Referrals: Mahamed Cuba MD [Primary Care Provider] - Activity Restrictions/Additional Instructions: Tylenol ibuprofen ice rest as needed for generalized aches and pains if has any worsening symptoms return to the emergency room or follow-up with your primary care provider continue taking meloxicam as needed for discomfort along with the hydrocodone levels which has been previously prescribed to you. 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
[2020-09-18 13:37] LABS: Basophils % 0.7 %; Eosinophils # 0.1 10^3/uL (0.0-0.8); Eosinophils % 2.1 %; Hemoglobin 13.6 g/dL (11.5-15.3); Lymphocytes # 0.2 10^3/uL (0.8-4.8); Lymphocytes % 4.1 %; Mean Corpuscular HGB Conc 32.4 g/dL (30.0-36.0); Mean Corpuscular Hemoglobin 28.8 pg (28.0-34.0); Mean Corpuscular Volume 88.8 fL (81-99); Mean Platelet Volume 8.9 fL (7.4-10.4); Monocytes # 0.9 10^3/uL (0.2-0.9); Monocytes % 20.3 %; Neutrophils % 72.8 %; Nucleated Red Blood Cells % 0 %; Platelet Count 170 10^3/cmm (130-400); Red Blood Count 4.73 10^6/uL (4.1-5.3); White Blood Count 4.4 10^3/uL (4.0-10.0)
[2020-09-18 13:45] VITALS: BP 156/63; PULSE 65; RESP 18; O2SAT 100
[2020-09-18 13:52] LABS: Alanine Aminotransferase 10 U/L (0-33); Albumin Level 4.2 g/dL (3.5-5.2); Alkaline Phosphatase 82 IU/L (35-105); Anion Gap 13.8 (5-19); Aspartate Amino Transferase 17 U/L (0-32); Blood Urea Nitrogen 9 mg/dL (8-23); Calcium 9.8 mg/dL (8.5-10.5); Carbon Dioxide 28 mmol/L (22-29); Chloride 95 mmol/L (98-107); Globulin 2.6 g/dL (1.3-4.6); Glucose 113 mg/dL (65-115); Osmolality Calculated 277 mOsm/kg (285-295); Sodium 134 mmol/L (136-145); Total Bilirubin 0.3 mg/dL (0.15-1.2); Total Protein 6.8 g/dL (6.6-8.7)
[2020-09-18 14:31] LABS: Potassium 2.8 mmol/L (3.5-5.1)
--- NOTE | 2020-09-18 15:31 | PC.NURSE ---
prescription for potassium called into [facility]. K+ 20meq 3PO now, 2PO at 1800, and 2PO BID for 3days.
--- NOTE | 2020-09-18 17:06 | PC.NURSE ---
critical value of K+ 2.8 taken and reported to Dr. Ovalle at [id number]
== END 2020-09-18 13:45 | disposition home or self-care (01) ==
PROVIDERS: Emergency Provider Family Medicine; PCP Internal Medicine
DX: S80.211A Abrasion, right knee, initial encounter (principal); W18.09XA Striking against other object with subsequent fall, initial encounter; Z79.82 Long term (current) use of aspirin; Z85.3 Personal history of malignant neoplasm of breast; E78.5 Hyperlipidemia, unspecified; Z86.73 Personal history of transient ischemic attack (TIA), and cerebral infarction without residual deficits
CPT/HCPCS: 12345; 70450; 80053; 81001; 85025; 93005; 99281; 99283

== ENCOUNTER 2020-09-30 05:13 | Emergency (ER) | payer MEDICARE, OTHER, SELFPAY ==
[2020-09-30 05:15] VITALS: BP 148/103; PULSE 84; RESP 18; TEMP 36.5; O2SAT 98; BMI 25.7
--- NOTE | 2020-09-30 05:16 | XRR_ITS ---
PROCEDURE INFORMATION: Exam: XR Abdomen, 1 View Exam date and time: 09/30/2020 5:44 AM Age: 75 years old Clinical indication: Constipation; Prior surgery; Surgery type: Right hip TECHNIQUE: Imaging protocol: XR of the abdomen. Views: Frontal supine view of the abdomen. 1 View. COMPARISON: CT abdomen pelvis w con* [id number] 07/28/2020 8:07 AM FINDINGS: Gastrointestinal tract: See Intraperitoneal space finding. Intraperitoneal space: Relatively airless abdomen. Air and stool filled sigmoid colon within the pelvis. Follow-up if indicated. Organs: Surgical clips are present in the region of the gallbladder fossa. Bones/joints: Unremarkable. XR/XR KUB [id number] IMPRESSION: Relatively airless abdomen. Air and stool filled sigmoid colon within the pelvis. Follow-up if indicated.
[2020-09-30 05:30] LABS: Add Urine Microscopic? NO
[2020-09-30 05:33] LABS: Bilirubin Urine Neg (Negative); Blood Urine Neg (Negative); Glucose Urine UA Trace (Normal); Ketones Urine 1+ (Negative); Leukocyte Esterase Urine Negative (Negative); Nitrate Urine Negative (Negative); Protein Urine Neg (Negative); Urine Appearance Clear (CLEAR); Urine Color Yellow (Yellow); Urobilinogen Urine Norm (Negative); pH Urine 7 (5-7)
[2020-09-30 06:00] LABS: Basophils # 0.1 10^3/uL (0.0-0.1); Basophils % 0.8 %; Eosinophils % 0.4 %; Hematocrit 44.1 % (37.0-47.0); Hemoglobin 14.3 g/dL (11.5-15.3); Lymphocytes # 0.4 10^3/uL (0.8-4.8); Lymphocytes % 5.2 %; Mean Corpuscular HGB Conc 32.4 g/dL (30.0-36.0); Mean Corpuscular Hemoglobin 28.7 pg (28.0-34.0); Mean Corpuscular Volume 88.6 fL (81-99); Mean Platelet Volume 9.1 fL (7.4-10.4); Monocytes % 12.5 %; Neutrophils # 6.26 10^3/uL (1.8-7.7); Neutrophils % 80.7 %; Nucleated Red Blood Cells % 0 %; Platelet Count 145 10^3/cmm (130-400); Red Blood Count 4.98 10^6/uL (4.1-5.3); Red Cell Distribution Width 15.4 % (12.1-15.1); White Blood Count 7.8 10^3/uL (4.0-10.0)
--- NOTE | 2020-09-30 06:16 | CT_ITS ---
WS: [id number] CT ABDOMEN PELVIS TECHNIQUE: Contrast-enhanced CT of the abdomen and pelvis with coronal and sagittal reformatted image s. CLINICAL INFORMATION: abd pain COMPARISON: July 28, 2020 DLP: 502.[address] scans at [facility] use at least one of these dose optimization techniques: automat ed exposure control; mA and/or kV adjustment per patient size (includes targeted exams where dose is matched to clinical indication); or iterative reconstruction. FINDINGS: Diffuse fatty infiltration of the liver. Cholecystectomy clips. Normal portal vein and splenic vein. Lung bases are well aerated. Submucosal enhancement diffusely involving the distal stomach and duodenum consistent with history of gastric neoplasm and likely inflammatory gastroduodenitis. Fatty atrophy of the pancreas. Adrenal gl ands are normal. Mild bilateral pelvocaliectasis in both kidneys is new from previous. Mild ureterect asis bilaterally. No obstructing lesions visualized. Images in the pelvis are degraded due to right T WELLS. Slightly delayed right nephrogram. Otherwise normal renal parenchymal enhancement. Lung bases are well aerated. Mild diffuse body wall anasarca progressed from previous. Mild edema in the mesentery more prominent about the left kidney and retroperitoneum. Normal caliber abdominal aort a. Retroaortic left renal vein. Tiny fat-containing umbilical hernia. Diverticulosis. No evidence of acute diverticulitis. No evidence of small or large bowel obstruction. Moderate spondylitic changes lumbar spine. CT/CT abdomen pelvis w con* [id number] IMPRESSION: 1. Submucosal enhancement with mild diffuse thickening involving the distal st omach and duodenum consistent with history of gastric neoplasm and treatment-re lated changes. Likely superimposed gastroduodenitis. 2. Slightly delayed right nephrogram with mild bilateral pelvocaliectasis and ureterectasis new from previous. Recommend correlation for ascending UTI. No vi sualized obstructing lesions. 3. Mild diffuse body wall anasarca and mesenteric edema new from previous. 4. Diverticulosis. No evidence of acute diverticulitis Notified Parmjit Ovalle DO at 09/30/2020 8:34 AM.
[2020-09-30 06:17] LABS: Alanine Aminotransferase 11 U/L (0-33); Albumin Level 4.2 g/dL (3.5-5.2); Alkaline Phosphatase 95 IU/L (35-105); Anion Gap 13.8 (5-19); Aspartate Amino Transferase 21 U/L (0-32); Blood Urea Nitrogen 10 mg/dL (8-23); Calcium 9.8 mg/dL (8.5-10.5); Carbon Dioxide 24 mmol/L (22-29); Chloride 98 mmol/L (98-107); Globulin 2.6 g/dL (1.3-4.6); Glucose 157 mg/dL (65-115); Lipase 24 U/L (13-60); Osmolality Calculated 276 mOsm/kg (285-295); Potassium 3.8 mmol/L (3.5-5.1); Sodium 132 mmol/L (136-145); Total Bilirubin 0.5 mg/dL (0.15-1.2); Total Protein 6.8 g/dL (6.6-8.7)
[2020-09-30] MEDS: ondansetron 2 mg/ML SDV 2 mL 4 MG IVP ×2 (06:17→09:10)
[2020-09-30 06:51] VITALS: BP 182/95; PULSE 90; RESP 18; O2SAT 99
[2020-09-30] MEDS: sodium chloride 0.9% 1,000 ML 999 ML IV (06:52)
[2020-09-30 07:00] VITALS: BP 163/94; PULSE 88; RESP 18; O2SAT 94
[2020-09-30] MEDS: iohexol 300 mg/mL 100 mL Btl IV (07:46)
[2020-09-30 08:00] VITALS: BP 145/96; PULSE 91; RESP 18; O2SAT 96
--- NOTE | 2020-09-30 08:03 | W.ED.NAVMDI ---
HPI - Nausea/Vomiting/Diarrhea General: Chief complaint: Nausea/Vomiting/Diarrhea Stated complaint: CONSITPATION Time Seen by Provider: 09/30/20 05:17 History of Present Illness: HPI Narrative: 75-year-old female presents with a history of gastric CA. She is currently being treated with chemo and radiation. Increased nausea for the last 2 days. Comes in today after complaint of constipation she was straining to have a bowel movement did pass some hard stool followed by some very thin loose stools. She got nauseated and threw up x1. She is still somewhat nauseous on arrival here. She denies any chest pain denies any cough shortness of breath. She is supposed to get 1 radiation treatment this week and then has a little bit of chemotherapy left as well. She was supposed to get a dose this morning. MD elicited complaint: nausea and abdominal pain Pertinent past history: other Onset (ago): hour(s) Description of vomiting: bilious Description of diarrhea: lose Associated nausea: Yes Associated abdominal pain: Yes Location of pain: Diffuse Pain consistency: intermittent Severity: mild Quality: cramping Exacerbating factors: none Relieving factors: none Associated symtoms: Reports bloating and nausea; Denies altered mental status, anxiety, change in vision, chest pain, cough, diaphoresis, decreased urine output, dizziness, dysuria, epistaxis, fatigue, fecal incontinence, fevers/chills, headache(s), anorexia, malaise, myalgias, numbness, palpitations, rash, short of breath, syncope, tenesmus, tinnitus or weakness Review of Systems Const: Denies: fatigue or diaphoresis Eyes: Denies: change in vision ENMT: Denies: tinnitus or epistaxis Card: Denies: chest pain, palpitations or syncope Resp: Denies: dyspnea, productive cough or non-productive cough GI: Reports: nausea and bloating; Denies: fecal incontinence : Denies: dysuria Skin/Breast: Denies: rash or pruritus Neuro: Denies: headache(s) or dizziness Psych: Denies: anxiety PFSH ED PFSH: Medical History Cervical disc disorder with myelopathy of mid-cervical region Chronic bronchitis Closed head injury GERD (gastroesophageal reflux disease) HX: breast cancer ER ID negative, 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 status post radiation therapy and hormonal therapy, currently on Femara Hyperlipidemia 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 disc disorder 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 region 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 Lumbar stenosis without neurogenic claudication Pain management contract signed Spondylolisthesis of cervical region 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 (cerebrum) Hx of stroke in February 07, 2019 Surgical History H/O total hip arthroplasty Right History of cholecystectomy History of hysterectomy / BSO / appendectomy History of left breast biopsy Port-A-Cath in place 04/16/20 Social History Smoking and tobacco status: never smoked Alcohol intake: never Lives independently: Yes Household members: spouse Marital status: Current occupational status: retired History of recent travel: No Physical Exam Const: COMMON NORMALS: no acute distress EXAM LIMITATIONS: no altered mental status GENERAL APPEARANCE: cooperative and comfortable ORIENTATION/CONSCIOUSNESS: Yes awake, Yes oriented to person, Yes oriented to place and Yes oriented to time HENMT: COMMON NORMALS: normocephalic, atraumatic and hearing grossly normal bilaterally HEAD & SCALP: normocephalic and atraumatic Neck/C-Spine: COMMON NORMALS: no JVD Resp: COMMON NORMALS: normal respiratory effort, No retractions, No use of accessory muscles and clear to auscultation bilaterally AUSCULTATION: clear to auscultation bilaterally Cardio: COMMON NORMALS: no JVD, regular rate, regular rhythm and No murmurs present (Cardio) RATE: regular rate RHYTHM: regular rhythm GI: COMMON NORMALS: Soft to palpation and No hepatosplenomegaly present AUSCULTATION: Yes normoactive bowel sounds PALPATION: Yes Soft to palpation, Yes Tenderness to palpation present (GI) (diffuse), No Guarding due to palpation present (GI) and Yes No hepatosplenomegaly present Extremity: COMMON NORMALS: normal to inspection, capillary refill normal, no clubbing, cyanosis or edema, no calf tenderness and no pedal edema Neuro: SENSORIUM/ORIENTATION: Yes oriented to person, Yes oriented to place and Yes oriented to time Skin: COMMON NORMALS: no rashes or lesions noted GENERAL SKIN EXAM: no rashes or lesions noted Course Vital Signs: Vital signs: Vital Signs Temperature 97.7 F 09/30/20 05:15 Pulse Rate 90 09/30/20 06:51 Respiratory Rate 18 09/30/20 06:51 Blood Pressure 182/95 09/30/20 06:51 Pulse Oximetry 99 09/30/20 06:51 MDM - Nausea/Vomiting/Diarrhea MDM Narrative: Medical decision making narrative: CT shows some thickening in the duodenum and the stomach are related to her known diagnosis of gastric CA. She is feeling better after the Zofran and IV fluids we will go and discharge her home offered her a different antiemetic she wants to continue with the oral Zofran she has at home clear liquid diet today and advance as tolerated tomorrow if has any worsening problems recheck. Lab Data: Labs: Lab Results 09/30/20 09/30/20 09/30/20 Range/Units 05:25 05:53 05:53 WBC 7.8 (4.0-10.0) 10^3/ uL RBC 4.98 (4.1-5.3) 10^6/u L Hgb 14.3 (11.5-15.3) g/dL Hct 44.1 (37.0-47.0) % MCV 88.6 (81-99) fL MCH 28.7 (28.0-34.0) pg MCHC 32.4 (30.0-36.0) g/dL RDW 15.4 H (12.1-15.1) % Plt Count 145 (130-400) 10^3/c mm MPV 9.1 (7.4-10.4) fL Neut % (Auto) 80.7 % Lymph % (Auto) 5.2 % [place] % (Auto) 12.5 % Eos % (Auto) 0.4 % Baso % (Auto) 0.8 % Neut # (Auto) 6.26 (1.8-7.7) 10^3/u L Lymph # (Auto) 0.4 L (0.8-4.8) 10^3/u L [place] # (Auto) 1.0 H (0.2-0.9) 10^3/u L Eos # (Auto) 0.0 (0.0-0.8) 10^3/u L Baso # (Auto) 0.1 (0.0-0.1) 10^3/u L Nucleated RBC % (a uto) 0 % Nucleated RBCs # 0.0 /100WBC Sodium 132 L (136-145) mmol/L Potassium 3.8 (3.5-5.1) mmol/L Chloride 98 (98-107) mmol/L Carbon Dioxide 24 (22-29) mmol/L Anion Gap 13.8 (5-19) BUN 10 (8-23) mg/dL Creatinine 0.6 (0.5-0.9) mg/dL GFR Calculation Not Reportable Glucose 157 H (65-115) mg/dL Calculated Osmolal ity 276 L (285-295) mOsm/k g Calcium 9.8 (8.5-10.5) mg/dL Total Bilirubin 0.5 (0.15-1.2) mg/dL AST 21 (0-32) U/L ALT 11 (0-33) U/L Alkaline Phosphata se 95 (35-105) IU/L Total Protein 6.8 (6.6-8.7) g/dL Albumin 4.2 (3.5-5.2) g/dL Globulin 2.6 (1.3-4.6) g/dL Lipase 24 (13-60) U/L Urine Color Yellow (Yellow) Urine Appearance Clear (CLEAR) Urine pH 7 (5-7) Ur Specific Gravit y 1.010 (1.005-1.030) Urine Protein Neg (Negative) Urine Glucose (UA) Trace H (Normal) Urine Ketones 1+ H (Negative) Urine Blood Neg (Negative) Urine Nitrate Negative (Negative) Urine Bilirubin Neg (Negative) Urine Urobilinogen Norm (Negative) mg/dL Ur Leukocyte Aiyana ase Negative (Negative) Discharge Plan Discharge Patient Disposition: Home Clinical Impression: Nausea & vomiting Condition: Stable Prescriptions: No Action aspirin 81 mg tablet,delayed release (DR/EC) 81 mg PO DAILY RF: 0 Hold Instructions: Resume on 04/20/20. Complete Multivitamin Tablet 1 tab PO DAILY RF: 0 calcium carbonate [Calcium 500] 500 mg calcium (1,250 mg) tablet 500 mg PO DAILY RF: 0 letrozole 2.5 mg tablet 2.5 mg PO DAILY RF: 0 Alphagan P 0.1 % drops 1 drop ophthalmic (eye) Q8H RF: 0 timolol 0.5 % drops 1 drop ophthalmic (eye) BID RF: 0 ICaps AREDS2 250 mg-200 unit -12.5 mg-1 mg capsule 1 cap PO BID RF: 0 ipratropium bromide 0.03 % spray,non-aerosol 2 spray intranasal TID Qty: 30 RF: 0 Protonix 40 mg tablet,delayed release (DR/EC) 40 mg PO DAILY Qty: 90 RF: 3 meloxicam 15 mg tablet 15 mg PO DAILY Qty: 30 RF: 3 Hold Instructions: Resume on 04/20/20. simvastatin 20 mg tablet 20 mg PO DAILY Qty: 90 RF: 0 Ativan 1 mg Tablet 1 mg PO DAILY PRN (Reason: Nausea) RF: 0 Novolin R Flexpen 100 unit/mL (3 mL) Insulin Pen See Rx Instructions .ROUTE .COMPLEX RF: 0 hydrocodone-acetaminophen [[place]] 5-325 mg tablet 1 tab PO Q6H PRN (Reason: pain) Qty: 15 RF: 0 Discharge Orders: Discharge Order (Routine); Ordered 09/30/20 Ordered By: Parmjit Ovalle Referrals: Mahamed Cuba MD [Primary Care Provider] - Discharge Diet: Clear Liquid Discharge Activity: Increase activity as tolerated Activity Restrictions/Additional Instructions: Clear liquid diet for 24 hours. Advance as tolerated after that. Use previously prescribed ondansetron for nausea and vomiting. Turn if any further problems. Coding Level of Care Code ED Automotive Software Engineer for Jeremiasg Fwd Exam Comprehensive
[2020-09-30 09:00] VITALS: BP 146/103; PULSE 97; RESP 18; O2SAT 97
[2020-09-30 12:44] VITALS: BP 138/75; PULSE 95; RESP 18; O2SAT 95
== END 2020-09-30 09:00 | disposition home or self-care (01) ==
PROVIDERS: Emergency Medicine; Emergency Provider Family Medicine; PCP Internal Medicine
DX: R11.2 Nausea with vomiting, unspecified (principal); Z79.82 Long term (current) use of aspirin; Z79.4 Long term (current) use of insulin; Z85.3 Personal history of malignant neoplasm of breast; E78.5 Hyperlipidemia, unspecified; Z86.73 Personal history of transient ischemic attack (TIA), and cerebral infarction without residual deficits
CPT/HCPCS: 12345; 74018; 74177; 80053; 81003; 83690; 85025; 96361; 96374; 96375; 96376; 99282; 99283; J2405; J7030; Q9967

== ENCOUNTER 2020-09-30 05:21 | Outpatient (RCR) | payer MEDICARE, OTHER, SELFPAY ==
--- NOTE | 2020-09-03 15:00 | ONCRAD TMN_ITS ---
Radiation Oncology Weekly Treatment Management Patient: Popeye West MR#: [id number] : 1945 Age: 75 Sex: Female Dictated by: Dr. Vishnu Renee Date of Service: 09/03/2020 Referring Physician(s) : Dr. 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 One close DCIS margin, otherwise negative margins for invasive carcinoma. Treatment rendered: Non-Hodgkin's lymphoma: 3 cycles of R-CHOP with a resultant complete [place] PET/CT response of 1 (08/15/2020) Left breast: Lumpectomy and sentinel lymph node biopsy, followed by radiation therapy to an aggregate dose of 50.4 Gy/28 fx to the entire left breast and a 9 Gy/5 fx lumpectomy cavity boost (05/28/2014 - 07/03/2014), followed by endocrine therapy. On 08/08/2020, left breast mass biopsies at the 12:00, 1:00, 2:00, and 3:00 positions revealed benign findings. Planned treatment for stage IAE high-grade B-cell lymphoma of the gastric fundus & incisura: Consolidative radiotherapy to the entire stomach to a total dose of 36 Gy in 18 fractions. The patient is to be treated on an empty stomach early each morning. Radiotherapy to date: Course: Stomach [id number], Treatment Site: Stomach 18FX, Ref. ID: [id number], Energy: 6X, Dose/Fx (cGy): 200, #Fx: , Dose Correction (cGy): 0, Total Dose (cGy): 200, Start Date: 09/03/2020, Elapsed Days: 0 Reason for visit: The patient is being seen today as part of their regularly scheduled weekly on treatment visits to assess for acute toxicities from radiotherapy. Interim History: The patient reports that her nausea is currently controlled with existing antiemetics, she reports no abdominal pain, no diarrhea, and persistent early satiety. Current Medications: Acetaminophen, acetaminophen, calcium 600/Vitamin D, cyclophosphamide, dexamethasone Sodium Phosphate, diphenhydrAMINE HCl, dOXOrubicin HCl, emend, eye Drops, famciclovir, femara, femara, hydroCHLOROthiazide, lisinopril, lORazepam, neulasta, palonosetron HCl, predniSONE, prochlorperazine Maleate, riTUXimab, simvastatin, simvastatin, sodium Chloride, venlafaxine HCl, venlafaxine HCl, vinCRIStine Sulfate. Allergies: Eggs and Paper tape. Vital Signs: Performed on 09/03/2020 2:03 PM BMI - 24.399 kg/m2 (high), Height - 62.00 in, Weight - 133.4 lbs, Temperature - 98.9 f, Pulse - 58, Respiration - 20, O2 Sat - 100 %, Pain - 0 and BP - 136/ 62 mm(hg)(/low). Physical Exam: Appears stable, no skin erythema or desquamation. Lungs are clear to auscultation bilaterally. Performance Status: 1 - No physically strenuous activity, but ambulatory and able to carry out light or sedentary work (e.g. office work, light house work). (ECOG) Lab: None pending in Radiation Oncology. Test performed on 05/27/2020 1:52 PM Neutrophils - 1.09 10 3/ul (low), Lymphocytes - 0.6 10 3/ul (low), Test performed on 06/21/2020 8:54 AM WBC - 28.6 10 3/ul (high), RBC - 3.92 10 6/ul (low), HGB - 11.0 g/dl (low), HCT - 34.6 % (low), RDW - 15.9 % (high), Platelet Count - 439 10 3/cmm (high), Atypical Lymphs % - 14.0 % (high), Manual Segs Abs - 16.0 10/cmm (high), Manual Bands Abs - 3.1 10 3/cmm (high), Manual Neutrophils Abs - 19.2 10 3/cmm (high), Manual Lymphocytes Abs - 6.0 10 3/cmm (high), Manual Monocytes Abs - 1.7 10 3/cmm (high), Test performed on 08/20/2020 9:52 AM Sodium - 133 mmol/l (low), Chloride - 95 mmol/l (low), Glucose - 139 mg/dl (high) and Osmolality - Calculated - 278 mosm/kg (low). Imaging: Radiation therapy imaging related to accurate target localization (i.e. KV, MV and CBCT) was reviewed. Appropriate changes, if any, were made to ensure treatment accuracy. Plan: The patient is tolerating therapy reasonably well. Radiotherapy will continue as planned. CPT: 60323 Signed by: Dr. Vishnu Renee 09/03/2020 2:59:54 PM
--- NOTE | 2020-09-12 09:54 | ONCRAD TMN_ITS ---
Radiation Oncology Weekly Treatment Management Patient: Jenna Nye MR#: [id number] : 1945> Attending Physician: Mychal Iniguez M.D. Date of Service: 09/12/2020 Referring Physician(s): Dr. Abdulkadir Mercado Diagnosis: C85.99 - Non-Hodgkin lymphoma, unspecified, extranodal and solid organ sites, Diagnosed 03/19/2020 (Active) Treatment Site: Stomach Fraction #: Start Date: 09/03/2020 End Date: 09/12/2020 Elapsed Days: 9 Reason for visit: The patient is being seen today as part of their regularly scheduled weekly on treatment visits to assess for acute toxicities from radiotherapy. Review of Systems: She did not report nausea or vomiting but did describe a poor appetite. Vital Signs: Performed on 09/12/2020 9:40 AM BMI - 23.777 kg/m2 (high), Height - 62.00 in, Weight - 130.0 lbs, Temperature - 98.2 f, Pulse - 58, Respiration - 20, O2 Sat - 98 %, Pain - 0 and BP - 110/ 52 mm(hg)(/low). Physical Exam: Examination of the abdomen did not reveal any erythema. Active bowel sounds were auscultated. There was no tenderness to palpation. Imaging: Radiation therapy imaging related to accurate target localization (i.e. KV, MV and CBCT) was reviewed. Appropriate changes, if any, were made to ensure treatment accuracy. Plan: Continue abdominal radiotherapy as prescribed. Signed by: Dr. Mychal Iniguez 09/12/2020 9:53:48 AM
--- NOTE | 2020-09-16 09:49 | N.ONRAD NP_ITS ---
Radiation Oncology Weekly Treatment Management Patient: Jenna Nye MR#: [id number] : 1945 Attending Physician: Dr. Mychal Iniguez Date of Service: 09/16/2020 Referring Physician(s): Dr. Abdulkadir Mercado Diagnosis: Non-Hodgkin lymphoma of the stomach Treatment Site: Stomach Dose: 34.2 Gy of a prescribed 45 Gy. Review of Systems: The patient reported nausea following meals. Vital Signs: Weight - 130 lbs. Temperature -98.6 F, BP -119/52 mm (hg). Pulse ???62 bpm, Respirations - 18 Physical Exam: Active bowel sounds auscultated. No tenderness to palpation. Imaging: Radiation therapy imaging related to accurate target localization (i.e. KV, MV and CBCT) was reviewed. Appropriate changes, if any, were made to ensure treatment accuracy. Plan: Continue abdominal radiotherapy as planned. Signed by: Dr. Mychal Iniguez 09/16/2020 9:48:06 AM
[2020-09-20 08:25] LABS: Alanine Aminotransferase 8 U/L (0-33); Albumin Level 3.7 g/dL (3.5-5.2); Alkaline Phosphatase 69 IU/L (35-105); Anion Gap 12.4 (5-19); Aspartate Amino Transferase 15 U/L (0-32); Blood Urea Nitrogen 9 mg/dL (8-23); Calcium 9.2 mg/dL (8.5-10.5); Carbon Dioxide 26 mmol/L (22-29); Chloride 96 mmol/L (98-107); Globulin 2.2 g/dL (1.3-4.6); Glucose 162 mg/dL (65-115); Osmolality Calculated 274 mOsm/kg (285-295); Potassium 3.4 mmol/L (3.5-5.1); Sodium 131 mmol/L (136-145); Total Bilirubin 0.3 mg/dL (0.15-1.2); Total Protein 5.9 g/dL (6.6-8.7)
[2020-09-20 10:29] LABS: Hemoglobin 13.6 g/dL (11.5-15.3); Lymphocytes % 4.1 %; Mean Corpuscular HGB Conc 32.4 g/dL (30.0-36.0); Mean Corpuscular Hemoglobin 28.8 pg (28.0-34.0); Mean Corpuscular Volume 88.8 fL (81-99); Mean Platelet Volume 8.9 fL (7.4-10.4); Platelet Count 170 10^3/cmm (130-400); Red Blood Count 4.73 10^6/uL (4.1-5.3); White Blood Count 4.4 10^3/uL (4.0-10.0)
[2020-09-20 10:30] LABS: Basophils % 0.7 %; Eosinophils % 2.1 %; Monocytes % 10.3 %; Neutrophils % 82.8 %
[2020-09-20 10:32] LABS: Eosinophils # 0.1 10^3/uL (0.0-0.8); Lymphocytes # 0.2 10^3/uL (0.8-4.8); Monocytes # 0.5 10^3/uL (0.2-0.9); Neutrophils # 3.63 10^3/uL (1.8-7.7); Slide Review Slide Review Perform
--- NOTE | 2020-09-23 09:46 | ONCRAD TMN_ITS ---
Radiation Oncology Weekly Treatment Management Patient: Popeye West MR#: [id number] : 1945 Attending Physician: Mychal Iniguez M.D. Date of Service: 09/23/2020 Referring Physician(s): Dr. Abdulkadir Mercado Diagnosis: Non-Hodgkin lymphoma of the stomach Treatment Site: Stomach Dose: 34.2 Gy of a prescribed 45 Gy. Review of Systems: The patient described Vital Signs: Weight - 129 lbs. Temperature -98.2 F, BP -123/64 (mm Hg). Pulse ??? 72 bpm, Respirations - 18 Physical Exam: The skin within the treatment chavez did not demonstrate any erythema. Active bowel sounds were auscultated. No tenderness to palpation. Imaging: Radiation therapy imaging related to accurate target localization (i.e. KV, MV and CBCT) was reviewed. Appropriate changes, if any, were made to ensure treatment accuracy. Plan: Continue abdominal radiotherapy as prescribed. Signed by: Dr. Mychal Iniguez 09/23/2020 9:44:52 AM
== END 2020-09-30 23:59 | disposition home or self-care (01) ==
LOC: ONCMED 05:21
PROVIDERS: Internal Medicine Hematology & Oncology; Absent Provider Radiology Radiation Oncology; PCP Internal Medicine; Visit Provider Radiology Radiation Oncology
DX: Z51.0 Encounter for antineoplastic radiation therapy (principal); C85.99 Non-Hodgkin lymphoma, unspecified, extranodal and solid organ sites; C50.412 Malignant neoplasm of upper-outer quadrant of left female breast; Z17.0 Estrogen receptor positive status [ER+]; Z79.899 Other long term (current) drug therapy
CPT/HCPCS: 36591; 77336; 77386; 80053; 85025

== ENCOUNTER 2020-10-15 05:25 | Outpatient (RCR) | payer MEDICARE, SELFPAY ==
[2020-10-15 12:16] LABS: Basophils # 0.1 10^3/uL (0.0-0.1); Basophils % 1.6 %; Eosinophils # 0.2 10^3/uL (0.0-0.8); Eosinophils % 3.1 %; Hematocrit 36.6 % (37.0-47.0); Hemoglobin 11.7 g/dL (11.5-15.3); Lymphocytes # 1.4 10^3/uL (0.8-4.8); Lymphocytes % 27.3 %; Mean Corpuscular Hemoglobin 28.5 pg (28.0-34.0); Mean Corpuscular Volume 89.3 fL (81-99); Mean Platelet Volume 9.6 fL (7.4-10.4); Monocytes # 1.2 10^3/uL (0.2-0.9); Monocytes % 22.9 %; Neutrophils # 2.26 10^3/uL (1.8-7.7); Neutrophils % 44.1 %; Nucleated Red Blood Cells % 0 %; Platelet Count 134 10^3/cmm (130-400); Red Cell Distribution Width 15.4 % (12.1-15.1); White Blood Count 5.1 10^3/uL (4.0-10.0)
[2020-10-15 12:21] LABS: Alanine Aminotransferase 9 U/L (0-33); Albumin Level 3.8 g/dL (3.5-5.2); Alkaline Phosphatase 85 IU/L (35-105); Aspartate Amino Transferase 19 U/L (0-32); Blood Urea Nitrogen 13 mg/dL (8-23); Calcium 9.9 mg/dL (8.5-10.5); Carbon Dioxide 28 mmol/L (22-29); Chloride 101 mmol/L (98-107); Globulin 2.7 g/dL (1.3-4.6); Glucose 90 mg/dL (65-115); Osmolality Calculated 284 mOsm/kg (285-295); Sodium 137 mmol/L (136-145); Total Bilirubin 0.3 mg/dL (0.15-1.2); Total Protein 6.5 g/dL (6.6-8.7)
--- NOTE | 2020-10-15 16:48 | ONC FU_ITS ---
Dr. Thompson follow up note Patient: Jenna Nye V Unit #: [id number]: 1945 Dicatated By: Carl Thompson M.D.Date of Visit:Oct 15, 2020 Onc Med Follow-up/Prog Note History of Present Illness: Mrs Nye is a 75 year old postmenopausal woman who underwent routine screening mammogram on 01/12/2014 and was found to have a suspicious 9.6 mm nodule at 3:00 position. Additional views and ultrasound was performed on 02/03/2014. It showed 2 small suspicious lesions at 3:00 -5 cm from the nipple and at 3:00 -3 cm from the nipple. The ultrasound-guided biopsy on 02/22/2014 showed mixed ductal and lobular infiltrating carcinoma, grade 2/3, involving both locations. Prognostic markers revealed ER 99%, IA 97%, HER-2 2+ by IHC, FISH ratio 1.08. On 03/08/2014 she underwent left axilla sentinel lymph node biopsy and left breast lumpectomy twice. Her pathology showed a residual invasive carcinoma with extensive component of DCIS. The largest invasive component measured 1.4 cm. Thus, stage IA, T1c, N0, M0. She required 2 additional surgeries on 03/22/2014 and on 04/05/2014 for positive margins. The Oncotype DX score is 16, low risk, no adjuvant chemotherapy was delivered. She completed 5040 cGy of radiation to the breast followed by boost on 08/02/14. She began on adjuvant Arimidex therapy in August of 2014. The treatment was complicated with persistent headaches and hot flashes. Her therapy was changed to Femara in September of 2014. MRI of the brain was negative for metastatic disease on 12/2/14. Baseline DEXA scan on 08/15/2014 was normal. She had taken Femara until 11-30-16 at which time it was placed on hold as well as the Effexor due to problems with night cao and worsening hot flashes as well as some joint pain. She was off the Femara and Effexor for a little over 4 weeks before she attempted to resume it. She has resumed it along with the Effexor and has tolerated it well. She completed her adjuvant hormonal therapy on 04/01/2020 As per patient in September 2019, she had 'bad' cough and mid chest pain, [place] [facility] [place] he was taught it could be due to esophageal infection, she was treated with antibiotics but her pain continued to progress especially after eating eventually, on 02/14/2020 she underwent EGD evaluation which showed gastric mass, biopsy was obtained which confirmed high-grade B-cell lymphoma, FISH to rule out Burkitt's was negative for IGH-MYC fusion ,t(8;14). Patient underwent CT PET scan on 02/24/2020 which showed hypermetabolic gastric wall thickening with questionable invasion into adjacent liver. No evidence of lavelle or additional extranodal disease. Echocardiogram done on May 10, 2020 showed ejection fraction 62%. Ms Nye tarted on systemic chemotherapy with R-CHOP on May 13, 2020. as per patient on July 15, 2020 she was admitted to hospital with big knot on her left side of her head, as per patient she tripped over a stone in her garden and hit her head but denies any seizure-like activity denies any focal weakness before or after the fall. In emergency room CT scan of the head done showed no acute findings and carotid duplex study shows 70 to 99% stenosis bilaterally and CTA of the head and neck redemonstrated occlusive disease, patient was referred to Dr. Jonas as an outpatient also had 2D echocardiogram done which showed ejection fraction 60% patient was advised to continue with aspirin, as per patient she went [place] [facility] [place] again recently on July 28, 2020 with abdominal pain and CT scan of abdomen pelvis was done which shows no acute intra-abdominal process, no free air but large amount of stool throughout large bowel. And nodular density left breast approximately 18 mm seen mammogram was done on July 12, 2020 did show left breast abnormality BI-RADS 4 for which she was referred for biopsy of lesion at 12:00 and 2 o'clock position in left breast. Mrs. Nye underwent ultrasound-guided left breast biopsy on 08/07/2020. She had biopsy of the left breast mass at the 12 o'clock position which reported as benign fibroadipose tissue no malignancy identified. Left breast mass biopsy at 1:00 with benign fibroadipose tissue no malignancy identified. Left breast biopsy 2 o'clock position: benign fibroadipose tissue no malignancy identified. Breast scar site #1 left breast: benign fibroadipose tissue with no malignancy identified. Left breast breast scar site #2 : Benign fibroadipose tissue with no malignancy identified. Immunohistochemical stains were performed on the sites as above to rule out any residual malignancy. No malignancy was identified. A 6-month follow-up with bilateral diagnostic mammography and bilateral ultrasound was recommended. Follow-up PET/CT was obtained After 3 cycles of chemotherapy with R-CHOP ,on August 15, 2020 per Ruth[place] in [place] (due to insurance requirements). The impression was no hypermetabolic lymph nodes are seen to suggest metabolically active disease. She states that she has been in the emergency room and admitted overnight on 08/17/2020 (discharged on 08/18/2020) for what she says was nasal drainage that made her cough that made her choke and then her whole body went numb. She had work-up in the ER with no specific results found???she did not have a barium swallow as recommended. She did have endoscopy which she states reported hiatal hernia. She was referred to radiation oncology for consolidation therapy to the stomach which she completed on October 01, 2020 Came for follow-up, denies any specific complaints, no fever chills, no nausea or vomiting, no diarrhea constipation, no night sweats, no weight loss, no recurrent fever, no peripheral lymphadenopathy, no abdominal pain or fullness, appetite is good. Tolerated involved field radiation therapy to the stomach wall, well Medications: Acetaminophen 2 Capsule (of 500 mg) Capsule Oral PRN, Calcium 600/Vitamin D 1 (600-400 mg - Units) Tablet Oral b.i.d., Eye Drops 2 Drop(s) Solution Ophthalmic daily PRN, Femara 1 (2.5 mg) Tablet Oral daily, hydroCHLOROthiazide 1 Tablet (of 25 mg) Oral daily, Simvastatin 1 (20 mg) Tablet Oral daily, Venlafaxine HCl 1 (75 mg) Tablet Oral daily Allergies: Eggs and Paper tape. Review of Systems: Constitutional - Her energy level is good. Appetite is good and weight is stable. No fever, chills, hot flashes, or night sweats, ENMT - Positive for has sinus congestion/drainage. No mouth sores. No sore throat or difficulty swallowing, Hematologic/Lymphatic - No abnormal bruising or bleeding, Respiratory - No shortness of breath. She has a productive cough which produces white phlegm. No pleuritic pain or hemoptysis, Cardiovascular - No angina pain. No palpitations, Gastrointestinal - Positive for nausea, no vomiting. Occasional heartburn. No diarrhea or constipation. No blood in the stool or black stools, Genitourinary (F) - No dysuria and hematuria. No urinary frequency. No urgency or incontinence, Musculoskeletal - She has pain in her knees and hips, Integumentary - No chronic rashes, ulcerations or skin changes, Neurologic - No headache or dizziness. She has swelling and numbness in her hands during the night, Psychiatric - No anxiety. She has some depression. No insomnia. Vital Signs: Performed on Oct 15, 2020 12:37 Height - 62.00 in Weight - 127.2 lbs (LOW) BSA - 1.58 sq.m BMI - 23.27 Temperature - 98.5 F Pulse - 61 /min Respiration - 20 /min BP - 156/71 mm(hg) (HIGH) O2 Sat - 98 % Pain - 0 Performance Status: 1 - No physically strenuous activity, but ambulatory and able to carry out light or sedentary work (e.g. office work, light house work). (ECOG) Physical Examination: Respiratory - Lungs are clear to auscultation, Cardiovascular - Regular rate and rhythm of heart, Gastrointestinal - Soft, bowel sounds present, Extremities - No visible edema or rash, No peripheral lymphadenopathy. Lab/Imaging: Test performed on Sep 20, 2020 07:58 Sodium 131 mmol/L Potassium 3.4 mmol/L Chloride 96 mmol/L CO2 26 mmol/L Anion Gap 12.4 BUN 9 mg/dL Creatinine 0.6 mg/dL Cr Clearance (Est) 72.42 mL/min Glucose 162 mg/dL Osmolality - Calculated 274 mOsm/kg Calcium 9.2 mg/dL Protein, Total 5.9 g/dL Albumin 3.7 g/dL Globulin 2.2 g/dL Bilirubin, Total 0.3 mg/dL ALT (SGPT) 8 U/L AST (SGOT) 15 U/L Alkaline Phosphatase 69 IU/L WBC 4.4 10 3/uL RBC 4.73 10 6/uL HGB 13.6 g/dL HCT 42.0 % MCV 88.8 fL MCH 28.8 pg MCHC 32.4 g/dL RDW 15.0 % Platelet Count 170 10 3/cmm MPV 8.9 fL Neutrophils 3.63 10 3/uL Lymphocytes 0.2 10 3/uL Monocytes 0.5 10 3/uL Eosinophils 0.1 10 3/uL Basophils 0.0 10 3/uL Neutrophil % 82.8 % Lymphocyte % 4.1 % Monocyte % 10.3 % Eosinophil % 2.1 % Basophils % 0.7 % CBC Slide Review Slide Review Perform SLIDE REVIEW AGREES WITH AUTOMATED RESULTS ST Test performed on Aug 07, 2020 12:00 PT 13.70 SECONDS INR 1.06 Test performed on Jul 01, 2020 08:20 LDH (Total) 210 U/L Test performed on Jun 21, 2020 08:54 Manual Segs % 56 % Manual Bands % 11.0 % Manual Lymphs % 7 % Atypical Lymphs % 14.0 % Manual Monos % 6.0 % Total Cells Counted 100 Metamyelocytes % 6.0 % Platelet Estimate Normal Manual Segs Abs 16.0 10/cmm Manual Bands Abs 3.1 10 3/cmm Manual Neutrophils Abs 19.2 10 3/cmm Manual Lymphocytes Abs 6.0 10 3/cmm Manual Monocytes Abs 1.7 10 3/cmm Test performed on May 27, 2020 13:52 NRBC % 0 % Test performed on May 10, 2020 07:20 Hepatitis A Ab, IgM Non-Reactive Hepatitis B Core Ab, Total Non-Reactive Hepatitis B Surf Antigen Non-Reactive Hepatitis B Surface Ab 3.5 STATUS of IMMUINITY Inconsistent with Immunity 0.0 - 8.5 mIU/mL Consistent with Immunity >8.5 mIU/mL Hepatitis C Ab Non-Reactive Impression: 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 There is loss of fat plane between posterior left hepatic lobe and invasion cannot be excluded. No evidence of lavelle or additional extranodal disease. Started on systemic chemotherapy with R-CHOP on May 13, 2020 and follow-up CT PET scan done after 3 cycles of R-CHOP on August 15, 2020 showed excellent response e.g. 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 The Oncotype DX score is 16, corresponding to about 10% risk of 10 year recurrence after completion of hormonal therapy. She completed adjuvant radiation on 08/02/14. She was a candidate hormonal therapy with aromatase inhibitors for 5 years, Arimidex at 1 mg daily was recommended. The side effects of the treatment include worsening arthralgias and accelerated bone density loss amongst others. Arimidex therapy began in August of 2014, thus far complicated with significant debilitating headaches and hot flashes. Treatment was changed to Femara, headaches resolved. Hot flashes resolved with Effexor. She is doing well. She had a hip replacement in 2017. She remains on Femara and Effexor. Mrs Nye presented on June 24, 2020 with concerns of persistent left breast pain for at least 2 weeks. A bilateral diagnostic mammogram was obtained on 07/01/2020 and was found to be abnormal. She had additional views on 07/12/2020 which reported RIGHT breast soft tissues masses at the 12:00 position and the largest area measured 4.1 x 6.2 x 4.6 cm. The LEFT breast was found to have multiple abnormalities identified by ultrasound. The largest near the scar site was measuring 3 cm x 0.7 x 1.5 cm. Ultrasound guided biopsy was then recommended. She underwent ultrasound-guided breast biopsy on 08/06/2020 with 5 specimens obtained from the 12:00, 1:00 and 2:00 and all 5 were negative for malignancy. The right breast was not biopsied. Plan: Discussed with patient regarding her labs white blood count 5.1 hemoglobin 11.7 hematocrit 36.6 platelets 134,000 CMP within normal limits Clinically, patient is doing well, with no new signs symptom suggestive of recurrence of lymphoma or breast cancer, patient has recently completed radiation therapy to the stomach wall, on October 01, 2020 tolerated well prior to that she was treated with 3 cycles of R-CHOP, which she tolerated well., No being observed, She will return to clinic in 2 months with CBC CMP and LDH and follow-up CT PET scan. Signed By: Carl Thompson M.D. <<Signature on File>>
== END 2020-10-31 23:59 | disposition home or self-care (01) ==
LOC: ONCMED 05:25
PROVIDERS: Absent Provider Radiology Radiation Oncology; PCP Internal Medicine; Visit Provider Internal Medicine Hematology & Oncology
DX: Z51.0 Encounter for antineoplastic radiation therapy (principal); C85.99 Non-Hodgkin lymphoma, unspecified, extranodal and solid organ sites; C50.412 Malignant neoplasm of upper-outer quadrant of left female breast; Z17.0 Estrogen receptor positive status [ER+]; Z79.811 Long term (current) use of aromatase inhibitors; Z79.899 Other long term (current) drug therapy; Z92.21 Personal history of antineoplastic chemotherapy
CPT/HCPCS: 36591; 77386; 80053; 85025; G0463

== ENCOUNTER 2020-12-05 06:19 | Outpatient (CLI) | payer MEDICARE, OTHER, SELFPAY ==
[2020-12-05 09:53] LABS: Basophils # 0.1 10^3/uL (0.0-0.1); Basophils % 1.2 %; Eosinophils # 0.2 10^3/uL (0.0-0.8); Eosinophils % 3.6 %; Hematocrit 39.3 % (37.0-47.0); Hemoglobin 12.9 g/dL (11.5-15.3); Lymphocytes # 1.5 10^3/uL (0.8-4.8); Lymphocytes % 22.5 %; Mean Corpuscular HGB Conc 32.8 g/dL (30.0-36.0); Mean Corpuscular Hemoglobin 30.1 pg (28.0-34.0); Mean Corpuscular Volume 91.8 fL (81-99); Mean Platelet Volume 9.4 fL (7.4-10.4); Monocytes # 0.9 10^3/uL (0.2-0.9); Monocytes % 13.7 %; Neutrophils # 3.79 10^3/uL (1.8-7.7); Neutrophils % 57.5 %; Nucleated Red Blood Cells % 0 %; Platelet Count 157 10^3/cmm (130-400); Red Blood Count 4.28 10^6/uL (4.1-5.3); Red Cell Distribution Width 15.6 % (12.1-15.1); White Blood Count 6.6 10^3/uL (4.0-10.0)
--- NOTE | 2020-12-05 10:13 | CT_ITS ---
WS: [id number] CT CHEST, ABDOMEN AND PELVIS WITH CONTRAST HISTORY: Non-Hodgkin lymphoma. TECHNIQUE: Contiguous 5 mm axial imaging performed through the chest, abdomen and pelvis with IV cont rast, oral contrast has been provided. Coronal and sagittal reformats chest. Coronal and sagittal ref ormats through the abdomen and pelvis. All CT scans at [facility] use at least one of the se dose optimization techniques: automated exposure control; mA and/or kV adjustment per patient size (includes targeted exams where dose is matched to clinical indication); or iterative reconstruction. CONTRAST: Omnipaque 300; 95 mL IV. DLP: 1072.39 mGy.cm COMPARISON: 09/30/2020. PET/CT 08/15/2020, 08/11/2020 and 07/28/[address]: Mild pulmonary expansion. There is mild thickening of the distal airways. Mild tree-in-bud airspace disease and a few scattered micronodules. No significant interval change the prior study. No enlarging masses. No pneumonia. Mild atherosclerosis aorta. Normal size pulmonary artery. Heart size is normal. No pericardial or pleural effusions. No mediastinal or hilar adenopathy. RIGHT subclavian Port-A-Cath. Very mild thickening of the distal esophagus. Abdomen CT: Prior cholecystectomy. Liver is normal size. No metastatic lesions. Low-attenuation lesio n measuring 1.0 cm in the inferior spleen is unchanged and been present on several prior examinations . No adrenal mass. Mild atrophy of the pancreas. No bile duct dilatation. No adrenal obstruction or l esion. There is very slight dilatation of the RIGHT ureter which is similar to the study from 07/28/20 20. No obstructing lesion identified. Stomach and duodenum again demonstrate mild wall thickening. No progression since the prior study. No ascites or adenopathy. Mild atherosclerosis aorta. Mild constipation. No GI tract obstruction or wall thickening. Numerous diverticula in the descending and sigmoid colon. Pelvic CT: Pelvis is being obscured by artifact from the RIGHT hip arthroplasty. Urinary bladder is w ell distended. No definite lymph nodes are identified. Limited visualization. Straightening of the normal lumbar lordosis with osteopenia. CT/CT chest abd pel w con* IMPRESSION: 1. No adenopathy within the chest, abdomen or pelvis. 2. Mild chronic inflammatory changes and micronodules within the lungs are sta ble. 3. Continued mild mucosal thickening involving the antrum of the stomach. 4. Prior cholecystectomy. 5. No adenopathy in the abdomen or pelvis. 6. Diverticular disease without acute diverticulitis. 7. No ascites.
[2020-12-05 10:17] LABS: Alanine Aminotransferase 12 U/L (0-33); Albumin Level 4.2 g/dL (3.5-5.2); Alkaline Phosphatase 111 IU/L (35-105); Aspartate Amino Transferase 24 U/L (0-32); Blood Urea Nitrogen 14 mg/dL (8-23); Calcium 9.9 mg/dL (8.5-10.5); Carbon Dioxide 30 mmol/L (22-29); Chloride 100 mmol/L (98-107); Glucose 92 mg/dL (65-115); Lactate Dehydrogenase 240 U/L (135-214); Osmolality Calculated 286 mOsm/kg (285-295); Sodium 138 mmol/L (136-145); Total Bilirubin 0.4 mg/dL (0.15-1.2); Total Protein 7.2 g/dL (6.6-8.7)
[2020-12-05] MEDS: iohexol 300 mg/mL 50 mL Btl PO (11:33)
[2020-12-05] MEDS: iohexol 300 mg/mL 100 mL Btl IV (11:41)
== END 2020-12-05 06:20 | disposition home or self-care (01) ==
PROVIDERS: PCP Internal Medicine; Visit Provider Internal Medicine Hematology & Oncology
DX: C85.99 Non-Hodgkin lymphoma, unspecified, extranodal and solid organ sites (principal); C50.412 Malignant neoplasm of upper-outer quadrant of left female breast; Z17.0 Estrogen receptor positive status [ER+]; Z79.811 Long term (current) use of aromatase inhibitors
CPT/HCPCS: 36415; 71260; 74177; 80053; 83615; 85025; Q9967

== ENCOUNTER 2021-01-08 08:02 | Outpatient (CLI) | payer MEDICARE, OTHER, SELFPAY ==
[2021-01-08 09:02] LABS: Basophils # 0.1 10^3/uL (0.0-0.1); Basophils % 1.6 %; Eosinophils # 0.2 10^3/uL (0.0-0.8); Eosinophils % 4.1 %; Hematocrit 37.6 % (37.0-47.0); Hemoglobin 12.3 g/dL (11.5-15.3); Lymphocytes # 1.1 10^3/uL (0.8-4.8); Lymphocytes % 19.9 %; Mean Corpuscular HGB Conc 32.7 g/dL (30.0-36.0); Mean Corpuscular Hemoglobin 30.4 pg (28.0-34.0); Mean Corpuscular Volume 93.1 fL (81-99); Mean Platelet Volume 9.3 fL (7.4-10.4); Monocytes # 0.9 10^3/uL (0.2-0.9); Monocytes % 15.9 %; Neutrophils % 56.4 %; Nucleated Red Blood Cells % 0 %; Platelet Count 182 10^3/cmm (130-400); Red Blood Count 4.04 10^6/uL (4.1-5.3); White Blood Count 5.7 10^3/uL (4.0-10.0)
[2021-01-08 09:21] LABS: Alanine Aminotransferase 10 U/L (0-33); Albumin Level 4.1 g/dL (3.5-5.2); Alkaline Phosphatase 108 IU/L (35-105); Aspartate Amino Transferase 20 U/L (0-32); Blood Urea Nitrogen 12 mg/dL (8-23); Calcium 9.7 mg/dL (8.5-10.5); Carbon Dioxide 29 mmol/L (22-29); Chloride 100 mmol/L (98-107); Globulin 2.9 g/dL (1.3-4.6); Glucose 82 mg/dL (65-115); Lactate Dehydrogenase 235 U/L (135-214); Osmolality Calculated 283 mOsm/kg (285-295); Sodium 137 mmol/L (136-145); Total Bilirubin 0.3 mg/dL (0.15-1.2)
--- NOTE | 2021-01-10 13:19 | ONC FU_ITS ---
Dr. Thompson follow up note Patient: Jenna Nye V Unit #: [id number]: 1945 Dicatated By: Carl Thompson M.D.Date of Visit:Jan 08, 2021 Onc Med Follow-up/Prog Note History of Present Illness: Mrs Nye is a 75 year old postmenopausal woman who underwent routine screening mammogram on 01/12/2014 and was found to have a suspicious 9.6 mm nodule at 3:00 position. Additional views and ultrasound was performed on 02/03/2014. It showed 2 small suspicious lesions at 3:00 -5 cm from the nipple and at 3:00 -3 cm from the nipple. The ultrasound-guided biopsy on 02/22/2014 showed mixed ductal and lobular infiltrating carcinoma, grade 2/3, involving both locations. Prognostic markers revealed ER 99%, [place] 97%, HER-2 2+ by IHC, FISH ratio 1.08. On 03/08/2014 she underwent left axilla sentinel lymph node biopsy and left breast lumpectomy twice. Her pathology showed a residual invasive carcinoma with extensive component of DCIS. The largest invasive component measured 1.4 cm. Thus, stage IA, T1c, N0, M0. She required 2 additional surgeries on 03/22/2014 and on 04/05/2014 for positive margins. The Oncotype DX score is 16, low risk, no adjuvant chemotherapy was delivered. She completed 5040 cGy of radiation to the breast followed by boost on 08/02/14. She began on adjuvant Arimidex therapy in August of 2014. The treatment was complicated with persistent headaches and hot flashes. Her therapy was changed to Femara in September of 2014. MRI of the brain was negative for metastatic disease on 10/02/14. Baseline DEXA scan on 08/15/2014 was normal. She had taken Femara until 11-30-16 at which time it was placed on hold as well as the Effexor due to problems with night cao and worsening hot flashes as well as some joint pain. She was off the Femara and Effexor for a little over 4 weeks before she attempted to resume it. She has resumed it along with the Effexor and has tolerated it well. She completed her adjuvant hormonal therapy on 04/01/2020 As per patient in September 2019, she had 'bad' cough and mid chest pain, Went to [facility] [place] that time he was taught it could be due to esophageal infection, she was treated with antibiotics but her pain continued to progress especially after eating eventually, on 02/14/2020 she underwent EGD evaluation which showed gastric mass, biopsy was obtained which confirmed high-grade B-cell lymphoma, FISH to rule out Burkitt's was negative for IGH-MYC fusion ,t(8;14). Patient underwent CT PET scan on 02/24/2020 which showed hypermetabolic gastric wall thickening with questionable invasion into adjacent liver. No evidence of lavelle or additional extranodal disease. Echocardiogram done on May 10, 2020 showed ejection fraction 62%. Ms Nye tarted on systemic chemotherapy with R-CHOP on May 13, 2020. as per patient on July 15, 2020 she was admitted to hospital with big knot on her left side of her head, as per patient she tripped over a stone in her garden and hit her head but denies any seizure-like activity denies any focal weakness before or after the fall. In emergency room CT scan of the head done showed no acute findings and carotid duplex study shows 70 to 99% stenosis bilaterally and CTA of the head and neck redemonstrated occlusive disease, patient was referred to Dr. Jonas as an outpatient also had 2D echocardiogram done which showed ejection fraction 60% patient was advised to continue with aspirin, as per patient she went to [facility] again recently on July 28, 2020 with abdominal pain and CT scan of abdomen pelvis was done which shows no acute intra-abdominal process, no free air but large amount of stool throughout large bowel. And nodular density left breast approximately 18 mm seen mammogram was done on July 12, 2020 did show left breast abnormality BI-RADS 4 for which she was referred for biopsy of lesion at 12:00 and 2 o'clock position in left breast. Mrs. Nye underwent ultrasound-guided left breast biopsy on 08/07/2020. She had biopsy of the left breast mass at the 12 o'clock position which reported as benign fibroadipose tissue no malignancy identified. Left breast mass biopsy at 1:00 with benign fibroadipose tissue no malignancy identified. Left breast biopsy 2 o'clock position: benign fibroadipose tissue no malignancy identified. Breast scar site #1 left breast: benign fibroadipose tissue with no malignancy identified. Left breast breast scar site #2 : Benign fibroadipose tissue with no malignancy identified. Immunohistochemical stains were performed on the sites as above to rule out any residual malignancy. No malignancy was identified. A 6-month follow-up with bilateral diagnostic mammography and bilateral ultrasound was recommended. Follow-up PET/CT was obtained After 3 cycles of chemotherapy with R-CHOP ,on August 15, 2020 per Ruthie in [place] (due to insurance requirements). The impression was no hypermetabolic lymph nodes are seen to suggest metabolically active disease. She states that she has been in the emergency room and admitted overnight on 08/17/2020 (discharged on 08/18/2020) for what she says was nasal drainage that made her cough that made her choke and then her whole body went numb. She had work-up in the ER with no specific results found???she did not have a barium swallow as recommended. She did have endoscopy which she states reported hiatal hernia. She was referred to radiation oncology for consolidation therapy to the stomach which she completed on October 01, 2020 Follow-up CT scan of chest abdomen pelvis done on December 05, 2020 showed no adenopathy within the chest abdomen pelvis. Continued mild mucosal thickening involving antrum of the stomach. Mild chronic inflammatory changes and micronodules within the lung are stable. Diverticular disease without acute diverticulitis. Came for follow-up, denies any specific complaint, no night sweats, no recurrent fever, no weight loss, no peripheral lymphadenopathy, no abdominal fullness no indigestion, no epigastric pain or discomfort Medications: Acetaminophen 2 Capsule (of 500 mg) Capsule Oral PRN, Calcium 600/Vitamin D 1 (600-400 mg - Units) Tablet Oral b.i.d., Eye Drops 2 Drop(s) Solution Ophthalmic daily PRN, Femara 1 (2.5 mg) Tablet Oral daily, Simvastatin 1 (20 mg) Tablet Oral daily, Venlafaxine HCl 1 (75 mg) Tablet Oral daily Allergies: Eggs and Paper tape. Review of Systems: Review of Systems is not available for this patient. Vital Signs: Performed on Jan 08, 2021 09:54 Height - 62.00 in Weight - 122.2 lbs (LOW) BSA - 1.55 sq.m BMI - 22.35 Temperature - 97.3 F (LOW) Pulse - 72 /min Respiration - 18 /min BP - 150/63 mm(hg) (HIGH) O2 Sat - 99 % Pain - 1 Fatigue - 2 Performance Status: 1 - No physically strenuous activity, but ambulatory and able to carry out light or sedentary work (e.g. office work, light house work). (ECOG) Physical Examination: Respiratory - Lungs are clear to auscultation, Cardiovascular - Regular rate and rhythm of heart, Gastrointestinal - Soft, bowel sounds present, Extremities - No visible edema or rash, No peripheral lymphadenopathy. Lab/Imaging: Test performed on Dec 05, 2020 09:30 LDH (Total) 240 U/L Sodium 138 mmol/L Potassium 4.0 mmol/L Chloride 100 mmol/L CO2 30 mmol/L Anion Gap 12.0 BUN 14 mg/dL Creatinine 0.5 mg/dL Cr Clearance (Est) 85.8300 mL/min Glucose 92 mg/dL Osmolality - Calculated 286 mOsm/kg Calcium 9.9 mg/dL Protein, Total 7.2 g/dL Albumin 4.2 g/dL Globulin 3.0 g/dL Bilirubin, Total 0.4 mg/dL ALT (SGPT) 12 U/L AST (SGOT) 24 U/L Alkaline Phosphatase 111 IU/L WBC 6.6 10 3/uL RBC 4.28 10 6/uL HGB 12.9 g/dL HCT 39.3 % MCV 91.8 fL MCH 30.1 pg MCHC 32.8 g/dL RDW 15.6 % Platelet Count 157 10 3/cmm MPV 9.4 fL Neutrophils 3.79 10 3/uL Lymphocytes 1.5 10 3/uL Monocytes 0.9 10 3/uL Eosinophils 0.2 10 3/uL Basophils 0.1 10 3/uL Neutrophil % 57.5 % Lymphocyte % 22.5 % Monocyte % 13.7 % Eosinophil % 3.6 % Basophils % 1.2 % NRBC % 0 % Test performed on Sep 20, 2020 07:58 CBC Slide Review Slide Review Perform SLIDE REVIEW AGREES WITH AUTOMATED RESULTS ST Test performed on Aug 07, 2020 12:00 PT 13.70 SECONDS INR 1.06 Impression: 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 There is loss of fat plane between posterior left hepatic lobe and invasion cannot be excluded. No evidence of lavelle or additional extranodal disease. Started on systemic chemotherapy with R-CHOP on May 13, 2020 and follow-up CT PET scan done after 3 cycles of R-CHOP on August 15, 2020 showed excellent response e.g. complete remission, patient was referred to radiation oncology for involved field radiation therapy to the stomach wall which was started on September 03, 2020 and completed on October 01, 2020 total 3600 rods Follow-up CT scan of chest abdomen pelvis done on December 05, 2020 showed no evidence of lymphadenopathy within the chest abdomen or pelvis. Continued mild mucosal thickening involving antrum of the stomach Mild chronic inflammatory changes and micronodules within the lungs are stable. 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 The Oncotype DX score is 16, corresponding to about 10% risk of 10 year recurrence after completion of hormonal therapy. She completed adjuvant radiation on 08/02/14. She was a candidate hormonal therapy with aromatase inhibitors for 5 years, Arimidex at 1 mg daily was recommended. The side effects of the treatment include worsening arthralgias and accelerated bone density loss amongst others. Arimidex therapy began in August of 2014, thus far complicated with significant debilitating headaches and hot flashes. Treatment was changed to Femara, headaches resolved. Hot flashes resolved with Effexor. She is doing well. She had a hip replacement in 2017. She remains on Femara and Effexor. Mrs Nye presented on June 24, 2020 with concerns of persistent left breast pain for at least 2 weeks. A bilateral diagnostic mammogram was obtained on 07/01/2020 and was found to be abnormal. She had additional views on 07/12/2020 which reported RIGHT breast soft tissues masses at the 12:00 position and the largest area measured 4.1 x 6.2 x 4.6 cm. The LEFT breast was found to have multiple abnormalities identified by ultrasound. The largest near the scar site was measuring 3 cm x 0.7 x 1.5 cm. Ultrasound guided biopsy was then recommended. She underwent ultrasound-guided breast biopsy on 08/06/2020 with 5 specimens obtained from the 12:00, 1:00 and 2:00 and all 5 were negative for malignancy. The right breast was not biopsied. Plan: Discussed with patient regarding her labs white blood count 5.7 hemoglobin 12.3 hematocrit 37.6 platelets 182,000 CMP within normal limits LDH [address] scan of chest abdomen pelvis findings which shows no evidence of recurrence of disease but persistent gastric wall thickening Clinically, patient doing well with no signs symptom including B symptoms suggestive of recurrence of disease her follow-up CT scan of chest abdomen pelvis shows no evidence of disease except persistent gastric mucosal wall thickening, at this point we will refer her to GI for evaluation with EGD Patient return to clinic in 3 months with CBC CMP and LDH unless EGD shows otherwise. Signed By: Carl Thompson M.D. <<Signature on File>>
== END 2021-01-08 08:03 | disposition home or self-care (01) ==
LOC: ONCMED 08:04
PROVIDERS: PCP Internal Medicine; Visit Provider Internal Medicine Hematology & Oncology
DX: Z08 Encounter for follow-up examination after completed treatment for malignant neoplasm (principal); Z85.72 Personal history of non-Hodgkin lymphomas; Z92.21 Personal history of antineoplastic chemotherapy
CPT/HCPCS: 36591; 80053; 83615; 85025; 99214

== ENCOUNTER 2021-01-21 10:54 | Outpatient (CLI) | payer MEDICARE, OTHER, SELFPAY ==
--- NOTE | 2021-01-21 11:10 | XRR_ITS ---
PROCEDURE INFORMATION: Exam: XR Left Hip Exam date and time: 01/21/2021 11:15 AM Age: 75 years old Clinical indication: Hip pain; Left hip; Additional info: M25.552 - pain in left hip TECHNIQUE: Imaging protocol: XR Left hip. Views: 2 or 3 views hip with pelvis when performed. COMPARISON: CT chest abd pel w con* 12/05/2020 11:31 AM FINDINGS: Bones/joints: No fracture or other acute abnormalities are seen. Chronic degenerative changes are present with superior joint space narrowing sclerosis and small osteophyte formation. Soft tissues: Unremarkable. XR/XR hip LT 2-3V wo/w pel* [id number] IMPRESSION: Chronic degenerative disease. No acute abnormality.
== END 2021-01-21 10:55 | disposition home or self-care (01) ==
LOC: RAD 11:08
PROVIDERS: PCP Internal Medicine; Visit Provider Internal Medicine
DX: M25.552 Pain in left hip (principal); M16.12 Unilateral primary osteoarthritis, left hip
CPT/HCPCS: 73502

== ENCOUNTER → 2021-03-17 09:54 | Outpatient (BNVA) | payer MEDICARE, OTHER, SELFPAY | PROVIDERS: PCP Internal Medicine; Visit Provider Internal Medicine | DX: Z01.812 Encounter for preprocedural laboratory examination (principal); C85.99 Non-Hodgkin lymphoma, unspecified, extranodal and solid organ sites | CPT/HCPCS: 87635 ==

== ENCOUNTER 2021-03-24 07:19 | Day surgery (SDC) | payer MEDICARE, OTHER, SELFPAY ==
--- NOTE | 2021-03-24 07:28 | P.ANESASSM_ITS ---
Pre-Anesthetic Assessment Pre-Anesthetic Assessment: Height/Weight: Height 1.57 m Weight 59.421 kg Preop Diagnosis: GASTRIC LYMPHOMA requiring long-term IV access Proposed Procedure: Operation Date: 03/24/21 09:00 Proposed Procedures p EGD 59679 C85.99(Not Applicable) - Mahamed Cuba MD Familial anesthetic complications: None Was Beta Wyatt taken within 24 hours: N/A Was Clonidine taken within 24 hours: N/A Last intake: NPO > 8 hrs Social: Social History: No alcohol and No tobacco Exam: Pre-Anes Outpt Exam: alert, oriented x 3, clear to auscultation bilaterally and regular rate & rhythm Airway: Cervical ROM: WNL MP: 3 Dentition: False Pulmonary: Comments: chronic bronchitis - well controlled GI: Comments: gastric lymphoma Metabolic: Metabolic: Hyperlipidemia Musc/skel: Musc/skel: Lower Back Pain and OA/DJD Neuropsych: Comments: B/L LUNA Anesthetic Plan: ASA status: 3 Anesthesia: MAC Risk of > 500 ml blood loss (7ml/kg in children): No PFSH Anesthesia PFSH: Medical History Cervical disc disorder with myelopathy of mid-cervical region Chronic bronchitis Closed head injury GERD (gastroesophageal reflux disease) HX: breast cancer ER [place] negative, 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 status post radiation therapy and hormonal therapy, currently on Femara Hyperlipidemia 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 disc disorder 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 region custodial (current) use of opiate analgesic Lumbar stenosis without neurogenic claudication Pain management contract signed Spondylolisthesis of cervical region 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 (cerebrum) Hx of stroke in February 07, 2019 Surgical History H/O total hip arthroplasty Right History of cholecystectomy History of hysterectomy / BSO / appendectomy History of left breast biopsy Port-A-Cath in place 04/16/20 Social History Smoking and tobacco status: never smoked Alcohol intake: never Lives independently: Yes Household members: spouse Marital status: Current occupational status: retired History of recent travel: No Data Anesthesia Cardiac Studies: No Data to Display
[2021-03-24 07:38] VITALS: BP 169/73; PULSE 52; RESP 18; TEMP 36.4; O2SAT 100
[2021-03-24] MEDS: sodium chloride 0.9% 1,000 ML 30 ML IV (08:20)
--- NOTE | 2021-03-24 09:29 | P.HP_ITS ---
Same Day Surgery H&P Indication for Procedure/HPI DATE OF PROCEDURE: March 24, 2021 CHIEF COMPLAINT/INDICATIONFOR SURGICAL PROCEDURE: Follow-up of gastric lymphoma PREOP DIAGNOSIS: History of gastric lymphoma PLANNED PROCEDRUE: Operation Date: 03/24/21 09:00 Proposed Procedures p EGD 82895 C85.99(Not Applicable) - Mahamed Cuba MD Medications/Allergies* Home Medications Medication Instructions Recorded Confirmed Type aspirin 81 mg tablet,delayed 81 mg PO DAILY 12/26/19 03/21/21 History release calcium carbonate 500 mg calcium 500 mg PO DAILY 12/26/19 03/21/21 History (1,250 mg) tablet multivitamin,db-rrpo-nhhvdumh 1 tab PO DAILY 12/26/19 03/21/21 History brimonidine 0.1 % eye drops 1 drop OPHTHALMIC (EYE) Q8H 12/28/19 03/21/21 History vit C 250 mg-vit E 200 unit-zinc 1 cap PO BID 12/28/19 03/21/21 History ox 12.5 ac-incvuo-ffvyex-zeax capsule Allergies/Adverse Reactions Allergy/AdvReac Type Severity Reaction Status Date / Time adhesive tape Allergy ALGY-Rash Verified 02/20/21 10:21 Influenza Virus Vaccines Allergy ALGY-Rash Verified 02/20/21 10:21 Current Medications: Generic Name Dose Route Start Last Admin Trade Name Freq PRN Reason Stop Dose Admin Sodium Chloride 1,000 mls @ 30 mls/hr 03/24/21 07:45 03/24/21 08:20 Sodium Chloride 0.9% IV 30 mls/hr .Q24H DEIDRE Administration Pertinent History/Comorbid Conditions* Medical History (Updated 01/21/21 @ 10:24 by Mahamed Cuba MD) Cervical disc disorder with myelopathy of mid-cervical region Chronic bronchitis Closed head injury GERD (gastroesophageal reflux disease) HX: breast cancer ER [place] negative, 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 status post radiation therapy and hormonal therapy, currently on Femara Hyperlipidemia 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 disc disorder 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 region MCC (current) use of opiate analgesic Lumbar stenosis without neurogenic claudication Pain management contract signed Spondylolisthesis of cervical region 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 (cerebrum) Hx of stroke in February 07, 2019 Surgical History (Updated 08/17/20 @ 19:38 by Abdulkadir Mercado MD) H/O total hip arthroplasty Right History of cholecystectomy History of hysterectomy / BSO / appendectomy History of left breast biopsy Port-A-Cath in place 04/16/20 Social History Smoking and tobacco status: never smoked Alcohol intake: never Lives independently: Yes Household members: spouse Marital status: Current occupational status: retired History of recent travel: No Pertinent Exam Findings alert, oriented x 3, clear to auscultation bilaterally, regular rate & rhythm, operative site marked and procedure specific exam findings Recommendations Surgery/Procedure today Coding Level of Care Code 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
[2021-03-24 09:43] VITALS: BP 161/76; PULSE 71; RESP 18; TEMP 36.3; O2SAT 97
[2021-03-24] MEDS: EPINEPHrine 1 mg/mL INJ XX (10:00)
[2021-03-24 10:02] VITALS: BP 150/75; PULSE 80; RESP 18; O2SAT 97
--- NOTE | 2021-03-24 17:50 | ANE.PACU2 ---
Inpatient post-anesthesia follow up: Airway intact: Yes Vital signs: Temperature 97.4 F Pulse Rate 80 Respiratory Rate 18 Blood Pressure 150/75 Pulse Oximetry 97 Oxygen Delivery Me thod Room Air Oxygen Flow Rate Fraction of Inspir ed Oxygen Hydration adequate: Yes Nausea and vomiting: No Pain level: 3 Mental status: Baseline
== END 2021-03-24 10:29 | disposition home or self-care (01) ==
PROVIDERS: PCP Internal Medicine; Visit Provider Internal Medicine
PROC: 0DJ08ZZ Inspection of Upper Intestinal Tract, Via Natural or Artificial Opening Endoscopic (ICD-10-PCS; CPT 43235; principal; 2021-03-24 09:00)
DX: K29.70 Gastritis, unspecified, without bleeding (principal); C85.99 Non-Hodgkin lymphoma, unspecified, extranodal and solid organ sites; K21.9 Gastro-esophageal reflux disease without esophagitis; Z85.3 Personal history of malignant neoplasm of breast; E78.5 Hyperlipidemia, unspecified; Z86.73 Personal history of transient ischemic attack (TIA), and cerebral infarction without residual deficits; M19.90 Unspecified osteoarthritis, unspecified site
CPT/HCPCS: 43239; 88305; 96360; 96361; J0171; J2704; J7030

== ENCOUNTER 2021-03-27 09:49 | Outpatient (CLI) | payer MEDICARE, OTHER, SELFPAY ==
--- NOTE | 2021-03-27 10:15 | USCV_ITS ---
Jenna Nye Age: 75 Gender: F : 1945 Exam Date: 03/27/2021 10:04 Ordering Phys: Giuliano Jonas MD (Andy) ([email or web address] [place] Technologist: ILA Exam Location: [facility] [place] Indication: OCCLUSION AND STENOSIS Risk Factors: Previous Vascular Surgery: Right Brachial BP: / Left Brachial BP: / Right Left Velocity (cm/s) Spectral Plaque Velocity (cm/s) Spectral Plaque Syst/Diast Broadening Syst/Diast Broadening 59.50/ 14.30 Prox CCA 50.20 / 9.30 59.50/ 15.40 Mid CCA 43.10 / 8.20 40.80/ 12.10 Distal CCA 43.10 / 10.40 338.70/77.70 Prox ICA 262.70/ 71.60 141.60/19.50 Mid ICA 269.20/ 76.00 102.20/32.20 Distal ICA 115.10/ 21.70 63.90 ECA 67.20 5.69 ICA/CCA 6.24 Antegrade Vertebral Antegrade 47.00/ 10.90 cm/s 44.50/ 23.50 cm/s Bi Subclavian Bi 76.50 84.00 FINDINGS Moderate to heavy heterogeneous plaques throughout the right and left internal carotid arteries. Elevated Doppler flow velocities bilaterally Antegrade flow of the vertebral arteries bilaterally Normal Doppler flow velocities in the subclavian arteries bilaterally CONCLUSIONS 1. Moderate to heavy heterogeneous plaques bilaterally with Doppler flow velocity elevation, consistent with greater than 70% stenosis. 2. Antegrade flow in the vertebral arteries bilaterally. 3. No evidence of stenosis in the subclavian arteries bilaterally. 4. Consider CTA, to better evaluate the distal ICA and the intracranial vessels Dr Gustabo Orta MD [facility] (Electronically Signed) Final Date: 31 Mar 2021 11:40 S
== END 2021-03-27 09:50 | disposition home or self-care (01) ==
PROVIDERS: PCP Internal Medicine; Visit Provider Thoracic Surgery (Cardiothoracic Vascular Surgery)
DX: I65.23 Occlusion and stenosis of bilateral carotid arteries (principal)
CPT/HCPCS: 93880

== ENCOUNTER 2021-07-30 08:13 | Outpatient (CLI) | payer MEDICARE, OTHER, SELFPAY ==
--- NOTE | 2021-07-30 08:00 | CT_ITS ---
WS: [id number] CTA NECK TECHNIQUE: Contrast enhanced CTA of the neck with coronal and sagittal reformatted images and maximum intensity projection (MIP) images. NASCET criteria utilized. CLINICAL INFORMATION: I65.23 - Occlusion and stenosis of bilateral carotid josé miguel... COMPARISON: None. DLP: 781.[address] scans at [facility] use at least one of these dose optimization techniques: automated e xposure control; mA and/or kV adjustment per patient size (includes targeted exams where dose is matc hed to clinical indication); or iterative reconstruction. FINDINGS: RIGHT: Right common carotid artery is patent. Calcified atheromatous plaque right carotid bulb extend ing into the ICA with stenosis measuring 80%. Right ICA is patent to the skull base. LEFT: Left common carotid artery is patent. Moderate calcified atheromatous plaque left carotid bulb extending into the ICA. Left ICA stenosis measures 76%. Left ICA is patent to the skull base. Left dominant vertebral artery. Tiny patent right vertebral artery. Basilar artery is patent. Left mastoid air cells are well aerated. Mild mucosal thickening right mastoid tip. Small retention c yst sphenoid sinus. Lung apices are well aerated. Advanced spondylitic changes cervical spine. Slight anterolisthesis C3 on C4. Disc osteophyte complexes at C4-C5 and C5-C6 with mild to moderate central canal stenosis. CT/CT angio neck 52770 IMPRESSION: BDP 1. Right ICA stenosis 80% % appears stable compared to previous. 2. Left ICA stenosis 76% appears stable compared to previous. 3. Left dominant vertebral artery. Smaller but patent right vertebral artery. Proximal basilar artery is patent. 4. Advanced spondylitic changes cervical spine.
[2021-07-30 08:40] LABS: Blood Urea Nitrogen 14 mg/dL (8-23)
[2021-07-30] MEDS: iohexol 350 mg/mL 100 mL Btl IV (08:58)
== END 2021-07-30 08:14 | disposition home or self-care (01) ==
PROVIDERS: PCP Internal Medicine; Visit Provider Thoracic Surgery (Cardiothoracic Vascular Surgery)
DX: I65.23 Occlusion and stenosis of bilateral carotid arteries (principal)
CPT/HCPCS: 70498; 82565; 84520; Q9967

== ENCOUNTER → 2021-08-27 08:45 | Outpatient (BNVA) | payer MEDICARE, OTHER, SELFPAY | PROVIDERS: PCP Internal Medicine; Visit Provider Thoracic Surgery (Cardiothoracic Vascular Surgery) | DX: I65.23 Occlusion and stenosis of bilateral carotid arteries (principal); Z20.822 Contact with and (suspected) exposure to COVID-19 | CPT/HCPCS: 87635 ==

== ENCOUNTER 2021-09-01 08:10 | Inpatient (IN) | payer MEDICARE, OTHER, SELFPAY ==
--- NOTE | 2021-08-27 09:25 | ECG_ITS ---
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 Measurements Intervals [place] Rate: 52 P: 65 IL: 201 QRS: 28 QRSD: 85 T: -24 QT: 390 QTc: 366 Interpretive Statements SINUS BRADYCARDIA WITH OCCASIONAL ECTOPIC PREMATURE COMPLEXES NONSPECIFIC T-WAVE ABNORMALITY Compared to ECG 09/18/2020 12:47:00 Sinus rhythm no longer present First degree AV block no longer present T-wave abnormality still present Electronically Signed On 08-28-2021 1:27:44 CDT by Gustabo Orta M.D. [id number]
[2021-08-27 09:42] VITALS: BMI 21.4
[2021-08-27 10:20] LABS: Charge for UA Resulting for Rev
[2021-08-27 10:22] LABS: Basophils # 0.1 10^3/uL (0.0-0.1); Eosinophils # 0.2 10^3/uL (0.0-0.8); Eosinophils % 3.5 %; Hemoglobin 13.7 g/dL (11.5-15.3); Lymphocytes # 1.6 10^3/uL (0.8-4.8); Mean Corpuscular HGB Conc 32.6 g/dL (30.0-36.0); Mean Corpuscular Hemoglobin 30.4 pg (28.0-34.0); Mean Corpuscular Volume 93.1 fl (81-99); Mean Platelet Volume 8.9 fL (7.4-10.4); Monocytes # 0.8 10^3/uL (0.2-0.9); Monocytes % 12.6 %; Neutrophils # 3.43 10^3/uL (1.8-7.7); Neutrophils % 56.7 %; Nucleated Red Blood Cells % 0 %; Platelet Count 180 10^3/cmm (130-400); Red Blood Count 4.51 10^6/uL (4.1-5.3); Red Cell Distribution Width 14.3 % (12.1-15.1)
[2021-08-27 10:29] LABS: Add Urine Microscopic? NO; Bilirubin Urine Neg (Negative); Blood Urine Neg (Negative); Glucose Urine UA Norm (Normal); Ketones Urine Negative (Negative); Leukocyte Esterase Urine Negative (Negative); Nitrate Urine Negative (Negative); Protein Urine Neg (Negative); Specific Gravity, Urine 1.015 (1.005-1.030); Urine Appearance Clear (CLEAR); Urine Color Yellow (Yellow); Urobilinogen Urine Norm (Negative); pH Urine 7 (5-7)
[2021-08-27 10:38] LABS: Anion Gap 9.2 (5-19); Blood Urea Nitrogen 14 mg/dL (8-23); Calcium 9.6 mg/dL (8.5-10.5); Carbon Dioxide 31 mmol/L (22-29); Chloride 99 mmol/L (98-107); Glucose 86 mg/dL (65-115); Osmolality Calculated 280 mOsm/kg (285-295); Potassium 4.2 mmol/L (3.5-5.1); Sodium 135 mmol/L (136-145)
--- NOTE | 2021-08-27 10:52 | P.ANESASSM_ITS ---
Pre-Anesthetic Assessment Pre-Anesthetic Assessment: Height/Weight: Height 1.57 m Weight 53.07 kg Preop Diagnosis: History of gastric lymphoma Proposed Procedure: Operation Date: 09/01/21 09:40 Proposed Procedures p Carotid Endarterectomy(Right) - Giuliano Jonas MD Was Beta Wyatt taken within 24 hours: N/A Was Clonidine taken within 24 hours: N/A Social: Social History: No alcohol and No tobacco Exam: Pre-Anes Outpt Exam: alert, oriented x 3 and clear to auscultation bilaterally Additional Exam Findings (including area of procedure): Feng Airway: Submandibular: WNL Cervical ROM: WNL MP: 2 Dentition: False CV/HEM: CV/HEM: HTN and PVD Comments: Sinus feng with PVCs Moderate to heavy heterogeneous plaques throughout the right and left internal carotid arteries. Elevated Doppler flow velocities bilaterally Antegrade flow of the vertebral arteries bilaterally Normal Doppler flow velocities in the subclavian arteries bilaterally CONCLUSIONS 1. Moderate to heavy heterogeneous plaques bilaterally with Doppler flow velocity elevation, consistent with greater than 70% stenosis. 2. Antegrade flow in the vertebral arteries bilaterally. 3. No evidence of stenosis in the subclavian arteries bilaterally. 4. 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 status post radiation therapy and hormonal therapy, currently on Femara Hyperlipidemia 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 disc disorder 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 region 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 Lumbar stenosis without neurogenic claudication Pain management contract signed Spondylolisthesis of cervical region 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 (cerebrum) Hx of stroke in February 07, 2019 Surgical History H/O total hip arthroplasty Right History of cholecystectomy History of hysterectomy / BSO / appendectomy History of left breast biopsy Port-A-Cath in place 04/16/20 Social History Alcohol intake: never Lives independently: Yes Household members: spouse Marital status: Current occupational status: retired History of recent travel: No Data Anesthesia CBC & Chem 7: 08/27/21 09:58 08/27/21 09:50 Other Labs: Laboratory Results - last 48 hr 08/27/21 08/27/21 08/27/21 09:29 09:50 09:58 WBC 6.0 RBC 4.51 Hgb 13.7 Hct 42.0 MCV 93.1 MCH 30.4 MCHC 32.6 RDW 14.3 Plt Count 180 MPV 8.9 Neut % (Auto) 56.7 Lymph % (Auto) 26.0 [place] % (Auto) 12.6 Eos % (Auto) 3.5 Baso % (Auto) 1.0 Neut # (Auto) 3.43 Lymph # (Auto) 1.6 [place] # (Auto) 0.8 Eos # (Auto) 0.2 Baso # (Auto) 0.1 Nucleated RBC % (auto) 0 Nucleated RBCs # 0.0 Sodium 135 L Potassium 4.2 Chloride 99 Carbon Dioxide 31 H Anion Gap 9.2 BUN 14 Creatinine 0.5 GFR Calculation Not Reportable Glucose 86 Calculated Osmolality 280 L Calcium 9.6 Urine Color Yellow Urine Appearance Clear Urine pH 7 Ur Specific [place] 1.015 Urine Protein Neg Urine Glucose (UA) Norm Urine Ketones Negative Urine Blood Neg Urine Nitrate Negative Urine Bilirubin Neg Urine Urobilinogen Norm Ur Leukocyte Esterase Negative Urine RBC Cancelled Urine WBC Cancelled Ur Squamous Epith Cells Cancelled Ur Transition Epith Cell Cancelled Ur Renal Epithelial Cell Cancelled Calcium Oxalate Crystal Cancelled Uric Acid Crystals Cancelled Triple Phos Crystals Cancelled Other Crystals Cancelled Amorphous Sediment Cancelled Urine Bacteria Cancelled Hyaline Casts Cancelled Fine Granular Casts Cancelled Coarse Granular Casts Cancelled RBC Casts Cancelled Other Casts Cancelled Urine Mucus Cancelled Urine Trichomonas Cancelled Urine Yeast Cancelled Urine Sperm Cancelled Ur Oval Fat Bodies Cancelled Cardiac Studies: No Data to Display
[2021-09-01] VITALS (50 sets, daily range): BP systolic 111–229; BP diastolic 55–102; PULSE 48–78; RESP 4–25; TEMP 36.6–36.7; O2SAT 97–100; BMI 21.4
[2021-09-01] MEDS: sodium chloride 0.9% 1,000 ML 30 ML IV (09:28)
--- NOTE | 2021-09-01 10:24 | PM.HP ---
Providers/Chief Complaint Admitting Physician: Sumi Primary Care Provider: Mahamed Cuba MD Chief Complaint: cor stenos History of Present Illness Jenna Nye is a 76 year old female whom we have followed in our clinic upon referral for bilateral carotid artery stenoses. She has a prior CTA of 1 year previously documenting an 87% right ICA and 84% left ICA. Consideration for elective carotid arterectomy was recommended related to her statistical increased risk for spontaneous CVA related to his high-grade lesions. At that time she not wish to undergo surgery as she was caring for her . He had recently completed chemotherapy for lymphoma. She represented most recently on July 11 asking for reconsideration about surgery. While she had no focal symptoms she was having intermittent headaches. We subsequently repeated the CTA of the neck on July 30. This study confirmed right ICA stenosis of 80% and a left ICA stenosis of 76%. It were comparable to prior studies but did confirm patency bilaterally. Rationale to consider elective carotid neurectomy was carefully and frankly discussed to hopefully decrease her statistical increased risk for spontaneous CVA with understanding of a possible risk of stroke related to the procedure itself. Her and her understand and do wish to proceed. We had previously performed carotid endarterectomy on her several years ago. Review of Systems Const: Denies: fever(s), chills, change in appetite, change in weight, fatigue or night sweats Eyes: Denies: change in vision or blurry vision ENMT: Denies: odynophagia or hoarseness Card: Denies: chest pain, palpitations, irregular heart rhythm or edema Resp: Reports: non-productive cough; Denies: productive cough GI: Denies: abdominal pain, nausea, vomiting, dysphagia, heartburn or change in bowel habits : Denies: dysuria, urinary frequency, urinary urgency or urinary hesitancy Musc: Reports: joint pain and joint swelling; Denies: extremity pain Skin/Breast: Denies: rash Neuro: Reports: headache(s); Denies: numbness in extremities, weakness in extremities or sensory changes Psych: Denies: anxiety, depression or change in appetite Endo: Denies: polyuria, polydipsia or cold intolerance Hector/Lymph: Reports: easy bruising Medications/Allergies Home Medications Medication Instructions Recorded Confirmed Last Taken Type calcium carbonate 500 mg calcium 500 mg PO DAILY 12/26/19 09/01/21 08/31/21 History (1,250 mg) tablet multivitamin,sw-huog-tuvljisn 1 tab PO DAILY 12/26/19 09/01/21 08/31/21 History brimonidine 0.1 % eye drops 1 drop OPHTHALMIC (EYE) Q8H 12/28/19 09/01/21 09/01/21 History vit C 250 mg-vit E 200 unit-zinc 1 cap PO BID 12/28/19 09/01/21 08/31/21 History ox 12.5 uh-rqgbvu-cickgs-zeax capsule pantoprazole 40 mg PO DAILY #90 tab 03/24/21 09/01/21 08/31/21 Rx acetaminophen 500 mg tablet 500 mg PO Q6H PRN 04/24/21 09/01/21 08/31/21 History ipratropium bromide 21 mcg (0.03 See Rx Instructions .ROUTE 08/25/21 09/01/21 09/01/21 Rx %) nasal spray .COMPLEX #30 ml Allergies Allergy/AdvReac Type Severity Reaction Status Date / Time adhesive tape Allergy ALGY-Rash Verified 07/11/21 08:57 Influenza Virus Vaccines Allergy ALGY-Rash Verified 07/11/21 08:57 PFSH Acute PFSH: Medical History Cervical disc disorder with myelopathy of mid-cervical region Chronic bronchitis Closed head injury GERD (gastroesophageal reflux disease) HX: breast cancer [place] negative, 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 status post radiation therapy and hormonal therapy, currently on Femara Hyperlipidemia 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 disc disorder 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 region 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 Lumbar stenosis without neurogenic claudication Pain management contract signed Spondylolisthesis of cervical region 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 (cerebrum) Hx of stroke in February 07, 2019 Surgical History H/O total hip arthroplasty Right History of cholecystectomy History of hysterectomy / BSO / appendectomy History of left breast biopsy Port-A-Cath in place 04/16/20 Social History Alcohol intake: never Lives independently: Yes Household members: spouse Marital status: Current occupational status: retired History of recent travel: No Vitals/I&O/Wt Last Vital Signs Temp 98 F 09/01/21 08:38 Pulse 55 L 09/01/21 08:38 Resp 15 09/01/21 08:38 BP 218/90 09/01/21 09:05 Pulse Ox 100 09/01/21 08:38 Physical Exam Const: COMMON NORMALS: patient oriented x3 and alert ORIENTATION/CONSCIOUSNESS: Yes oriented to person, Yes oriented to place and Yes oriented to time HENMT: COMMON NORMALS: normocephalic HEAD & SCALP: normocephalic; no cranial bruits Neck/C-Spine: COMMON NORMALS: full ROM, supple and no JVD GENERAL: Yes trachea midline CAROTIDS: Yes bruit positive right (Light) CERVICAL SPINE: Yes cervical ROM normal Chest: COMMONS NORMALS: normal inspection of the chest and normal palpation of entire chest wall Resp: COMMON NORMALS: normal respiratory effort, No use of accessory muscles, clear to auscultation bilaterally and percussion normal EFFORT & INSPECTION: Yes able to speak in complete sentences and Yes symmetric chest movement AUSCULTATION: clear to auscultation bilaterally PERCUSSION: percussion normal Cardio: COMMON NORMALS: no JVD, regular rate, regular rhythm, S1 normal heart sound present, S2 normal heart sound present, No gallops present (Cardio), No murmurs present (Cardio), No rub (Cardio) and Peripheral pulses 2+ throughout JUGULAR VENOUS DISTENTION: no JVD RATE: regular rate RHYTHM: regular rhythm HEART SOUNDS: S1 normal heart sound present and S2 normal heart sound present PERIPHERAL PULSES: Peripheral pulses 2+ throughout Extremity: OTHER: Mild pretibial edema at the ankles Neuro: COMMON NORMALS: patient oriented x3, no focal motor deficits and no sensory deficits noted SENSORIUM/ORIENTATION: Yes alert, Yes oriented to person, Yes oriented to place and Yes oriented to time GAIT: Yes Normal gait present Data : 08/27/21 09:58 08/27/21 09:50 A&P Assessment and plan (1) Bilateral carotid artery stenosis without cerebral infarction: High-grade bilateral carotid artery stenoses, 80% on the right. Recommendation to consider elective carotid endarterectomy was frankly discussed with Mrs. Nye and her . All questions answered. Details and risks of the procedure were carefully and frankly discussed. Risks reviewed include the possibility of , stroke, heart attack, major bleeding, infection, pneumonia, temporary or permanent hoarseness, deviation of the tongue, swallowing difficulties, organ failure, failure to benefit, prolonged hospital stay, pain after the procedure, need for further procedures, inability to complete the procedure, and need for long-term followup. All questions were answered. Appropriate consents have been provided for review and signature. 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
[2021-09-01] MEDS: vancomycin 1,000 MG SDV 1000 MG IRRIGATION (11:20)
[2021-09-01] MEDS: heparin,porcine 1,000 unit/mL INJ 1 mL 1000 UNIT IRRIGATION (11:20)
--- NOTE | 2021-09-01 13:41 | P.OP_ITS ---
Operative Report Date of procedure: September 01, 2021 Pre-op Diagnosis: Right carotid artery stenosis Post-op diagnosis: same Procedure Done: Right carotid endarterectomy with patch angioplasty Implants: Hemashield patch Specimens removed/disposition: Right carotid artery plaque Surgeon: Giuliano Jonas Anesthesia: General Complications: None: Neurologically intact immediately postop Condition: stable Disposition: ICU Brief History: Ms. Nye is a 76-year-old female with bilateral high-grade carotid artery stenoses of 80% on the right side and 76% on the left. Due to illness with her , she had previously requested delay in interventions but recently returned requesting that we proceed with recommendations. We have recommended the right carotid artery be addressed first. Details the risk of surgery were carefully discussed including potential for stroke related to the procedure. All questions were answered, and appropriate consents signed. Procedure: Ms. Nye was placed on the OR table and underwent general endotracheal anesthesia with a neurological monitoring endotracheal tube as well as placement of a right radial arterial line. Bihemispheric monitoring pads were placed as well as grounding and sensing pads for nerve conduction evaluation during neck dissection.The entire upper chest and right neck were sterilely prepped and draped. Incision was made along the anterior border of the sternomastoid muscle and carried down to the platysma with cautery. Dissection from this point forward was carried out utilizing Metzenbaum scissors and limited use of bipolar cautery. The internal jugular vein was dissected free and the facial vein was ligated, oversewn, and divided. Dissection was continued down through the ansa cervicalis with preservation of major branches. Minor branches were divided if required to allow for adequate exposure. Nerve conduction evaluation was performed throughout the dissection for protection of the recurrent nerve. We subsequently reached the common carotid artery. Dissection was then continued proximally to distally across the bifurcation. Vessel loops were placed around the common carotid artery, internal carotid artery, and external carotid artery. Distally, the base of the hypoglossal nerve could be identified and was protected. The internal carotid artery disease went fairly high and extended above the level of the mandibular angle. This did require some traction in this region, but great care was taken to min imize pressure to the hypoglossal nerve, which was protected. Care was taken during this dissection to avoid injury to the vagus nerve. The patient was then heparinized with 10,000 units. The systolic blood pressure was elevated to 160. Following this, in a rapid sequenced fashion, the distal internal carotid artery was clamped followed by clamping of the common carotid artery and external carotid artery. #11 scalpel blade was used to open the common carotid artery proximally. Jacobs scissors were then utilized to extend this arteriotomy across the distal common carotid artery and ulcerated very stenotic plaque and continue this further at the bifurcation across the calcific plaque in the internal carotid artery until we had reached normal intima. The internal carotid artery clamp was briefly flashed with evidence of brisk back bleeding, therefore we elected not to shunt. It should be noted that bi-hemispheric oximetry was recorded throughout the procedure. Next, a freer elevator was utilized to create a dissection plane the plaque from intima at the proximal portion of the arteriotomy. This was then divided with a #11 scalpel blade. This plaque was then further dissected along the intimal plane proximally to distally across the bifurcation. Utilizing an everting technique, plaque was removed from the external carotid artery with brisk flow. This plaque was then dissected free up the internal carotid artery to a feathered edge. Heparinized saline solution was utilized to remove any loose debris. Next, a Hemashield patch was brought into the field and sewn into position utilizing a running 6-0 Prolene suture, thereby completing our patch angioplasty. At the completion of the patch, the external carotid artery was opened followed by the common carotid artery and finally the internal carotid artery, thereby reestablishing cerebral flow. Areas of extravasation were repaired with 6-0 Prolene suture. After 5 minutes, heparin was reversed with protamine. Hemostasis was confirmed. The wound was irrigated with antibiotic solution. A small, flat, Johny-Garcia drain was placed in the wound and connected to bulb suction. Sponge and needle count was correct. The wound was then closed in 2 layers of 3-0 Vicryl suture. Skin was reapproximated in a subcuticular manner with 4-0 Monocryl suture. A pressure dressing was then applied. She was awakened from anesthesia and spontaneous movement of all extremities as well as movement to command was noted. The patient was then transferred to the ICU in stable condition. I did awake overnight counselor with and son at completion of the procedure. Ms. Nye will be monitored in the ICU for the next 24 hours.
[2021-09-01] MEDS: ondansetron 2 mg/ML SDV 2 mL 4 MG IVP ×2 (14:02→22:57)
--- NOTE | 2021-09-01 14:15 | PC.NURSE ---
To Floor Pt brought to floor via bed by OR staff. Pt is drowsy and following commands. Art line to right radial in place. Surgical incision to right neck is CDI and TYRA is draining. Pt has palpable pedal pulses and able to move feet. Family is at bedside and up to date.
--- NOTE | 2021-09-01 15:49 | ECG_ITS ---
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1945 Requested By: Giuliano Jonas Order Number: [id number] Vicki MD: BISI GARCIA Measurements Intervals [place] Rate: 101 P: SD: QRS: 29 QRSD: 96 T: -69 QT: 345 QTc: 448 Interpretive Statements ATRIAL FIBRILLATION WITH RAPID VENTRICULAR RESPONSE ST DEVIATION AND MODERATE T-WAVE ABNORMALITY, CONSIDER LATERAL ISCHEMIA [-0.1+ mV T-WAVE IN I/aVL/V5/V6] ST DEVIATION AND MODERATE T-WAVE ABNORMALITY, CONSIDER INFERIOR ISCHEMIA [-0.1+ mV T-WAVE IN II/aVF] Compared to ECG 08/27/2021 10:11:27 Possible ischemia now present Sinus bradycardia no longer present T-wave abnormality still present Electronically Signed On 09-01-2021 21:54:51 CDT by BISI GARCIA [email or web address]
[2021-09-01] MEDS: metoprolol tartrate 1 mg/1 mL SDV 5 mL 2.5 MG IVP (15:59)
[2021-09-01] MEDS: aspirin 81 mg EC Tablet PO (16:00)
[2021-09-01] MEDS: lactated ringers 1,000 ML 75 ML IV ×2 (16:19)
[2021-09-01] MEDS: metoprolol tartrate 25 mg Tablet PO ×2 (16:31→20:12)
[2021-09-01] MEDS: enoxaparin 40 mg/0.4 mL Syringe SUBCUT (17:09)
[2021-09-01] MEDS: HYDROcodone-acetaminophen 5-325 mg Tablet 1 TAB PO ×2 (17:12→22:35)
--- NOTE | 2021-09-01 17:15 | PM.PN ---
Subjective Subjective: Interval history: Status post right carotid endarterectomy with patch angioplasty earlier today. Neurologically intact while convalescing in the ICU. Did develop A. fib with RVR which now has a ventricular rate of approximately 100-105. She is asymptomatic. Systolic blood pressure 110. Vitals/I&O/Wt Last Vital Signs Temp 98.0 F 09/01/21 16:00 Pulse 75 09/01/21 16:00 Resp 15 09/01/21 16:00 BP 111/55 09/01/21 16:00 Pulse Ox 100 09/01/21 14:08 09/01/21 09/01/21 09/01/21 06:59 14:59 22:59 Intake Total 60 / 60 0 / 60 Output Total 15 / Balance 60 / 60 -15 45 Weight last 48 hrs Weight 117 lb Physical Exam Const: COMMON NORMALS: patient oriented x3 Neck/C-Spine: GENERAL: Yes trachea midline and No tracheal deviation OTHER: Surgical dressing in place. Low TYRA drain output. No evidence for hematoma. Tongue midline with protrusion. Trachea midline. Voice quality appears normal. Resp: COMMON NORMALS: normal respiratory effort, No retractions and clear to auscultation bilaterally EFFORT & INSPECTION: Yes able to speak in complete sentences and Yes symmetric chest movement AUSCULTATION: clear to auscultation bilaterally Cardio: COMMON NORMALS: regular rate RATE: regular rate RHYTHM: abnormal rhythm irregularly irregular Neuro: COMMON NORMALS: patient oriented x3, moves all extremities, no focal motor deficits and no sensory deficits noted Urinary Catheter Management^: Gar: Cath Placed During This Visit: yes Urinary Catheter Date of Insertion: 09/01/21 Urinary Catheter Time of Insertion: 10:55 Data : 08/27/21 09:58 08/27/21 09:50 A&P Assessment and plan (1) Postoperative atrial fibrillation: Stop A. fib status post right carotid endarterectomy. Plan: Metoprolol 25 mg p.o. twice daily : Initiate amiodarone 1 mg/h for 6 hours then 1/2 mg/h IV Lovenox subcutaneous Continue close ICU surveillance Status: Acute Attestations Medical Necessity Statement*: Postop A. 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
--- NOTE | 2021-09-01 18:53 | ANE.PACU2 ---
Inpatient post-anesthesia follow up: Airway intact: Yes Vital signs: Temperature 97.9 F Pulse Rate 78 Respiratory Rate 20 Blood Pressure 146/86 Pulse Oximetry 100 Oxygen Delivery Me thod Room Air Oxygen Flow Rate Fraction of Inspir ed Oxygen Hydration adequate: Yes Nausea and vomiting: No Pain level: 3 Mental status: Baseline
[2021-09-01] MEDS: lanolin oint 7 gm 1 APPLIC TOPICAL (19:21)
[2021-09-02] VITALS (92 sets, daily range): BP systolic 95–201; BP diastolic 47–126; PULSE 42–70; RESP 0–29; TEMP 36.1–36.7; O2SAT 94–100
[2021-09-02] MEDS: morphine 4 mg/mL SDV 1 mL 2 MG IVP (01:00)
--- NOTE | 2021-09-02 01:30 | PC.NURSE ---
Patient Confused Walked in room to check on patient, patient had thrown blankets to the side and taken off gown. She was laying on the side of the bed saying, help me get out of here . Resituated patient back in the bed, covered her back up. Reoriented patient to surroundings and educated about high blood pressure. Patient able to correctly answer all orientation questions when asked by nurse.
--- NOTE | 2021-09-02 02:15 | PC.NURSE ---
Hypertension Patient noted to have high blood pressures from automatic cuff/arterial line. Called Dr. Jonas and notified him about patient high blood pressure, also informed him that Mrs. Nye is reporting headaches. Upon administering PRN Hydrocodone for pain control the patient becomes nauseous and needs PRN Zofran. Pain was not controlled by Hydrocodone, administered PRN Morphine which seemed to cause confusion to patient. Systolic blood pressure noted to be in the 200's and sustaining. Dr. Jonas gave verbal telephone orders for 1 mg Ativan PRN ONCE for anxiety, 30 mg Toradol PRN ONCE for pain control, and 1.25 mg Enalaprilat PRN once for hypertension. Dr. Jonas then called back and gave verbal telephone orders for a Nitro drip to control hypertension.
[2021-09-02] MEDS: LORazepam 2 mg/mL INJ 1 mL 1 MG IVP ×2 (02:19→02:30)
[2021-09-02] MEDS: nitroglycerin drip 50 MG/250 ML PREMIX IV (02:20)
[2021-09-02] MEDS: ketorolac 30 mg/mL INJ IVP (02:28)
--- NOTE | 2021-09-02 05:41 | PC.NURSE ---
Shift Note Frequent safety and comfort rounds continue. Orders and/or nursing care completed as indicated. Patient monitored for response to intervention and treatment(s). Education provided includes TYRA drain management. Patient needs further reinforcement teaching. Patient remains alert and oriented x4, on 2LNC. Right neck has a surgical incision and TYRA drain, both sites are covered with a Covaderm dressing. No other skin issues or wounds noted at this time. TYRA drain had 30 mls of sanguineous drainage out overnight. Gar catheter drained 450 mls overnight. Nitro and Lactated ringers are infusing, please see MAR for infusion rates. Will continue to monitor.
[2021-09-02] MEDS: lactated ringers 1,000 ML 75 ML IV (06:46)
--- NOTE | 2021-09-02 06:53 | P.PN_ITS ---
Subjective Subjective: Interval history: POD #1 status post right carotid endarterectomy with patch angioplasty. Early postop ADonavan degroot has now converted spontaneously to sinus rhythm around 4 AM as reported by nursing service. She has been on amiodarone infusion with her heart rate in the upper 40s while at rest though it does reach up in the 70s when she is moving. There was some episodes of confusion last night as well as nausea associated with hydrocodone. She did receive 1 mg of Ativan as well as Toradol for pain and subsequent use of nitroglycerin due to hypertension. This morning she is cooperative and calm. She does need to be reoriented as to location though she is without any motor deficits and responds appropriate to commands. Speech is normal. There is no voice quality concerns. No swallowing difficulties. Incision is clean, dry, and intact. TYRA drain was removed. TYRA drain output overnight 30 cc. She still remains a bit hypertensive with systolic blood pressure 170. Vitals/I&O/Wt Last Vital Signs Temp 97.2 F L 09/02/21 04:00 Pulse 44 L 09/02/21 06:05 Resp 13 09/02/21 06:05 BP 175/68 09/02/21 06:05 Pulse Ox 100 09/02/21 04:55 09/01/21 09/01/21 09/02/21 14:59 22:59 06:59 Intake Total 60 / 60 537.038 / 151.945 2314.512 / 2510.550 Output Total 515 / 515 480 / 995 Balance 60 / 60 22.038 / 82.038 1433.512 / 1515.550 Weight last 48 hrs Weight 117 lb Physical Exam Const: COMMON NORMALS: patient oriented x3 Neck/C-Spine: COMMON NORMALS: no lymphadenopathy and no JVD GENERAL: Yes normal visual inspection, Yes trachea midline and No anterior neck swelling OTHER: Right neck incision clean and dry. TYRA drain removed. New dressing appl ied. Very mild right neck tenderness. No swelling. Minimal ecchymosis. Resp: COMMON NORMALS: normal respiratory effort, No use of accessory muscles and clear to auscultation bilaterally AUSCULTATION: clear to auscultation bilaterally Cardio: COMMON NORMALS: no JVD, regular rhythm and S1 normal heart sound present RHYTHM: regular rhythm HEART SOUNDS: S1 normal heart sound present OTHER: Bradycardia Extremity: COMMON NORMALS: no clubbing, cyanosis or edema Neuro: COMMON NORMALS: patient oriented x3, no focal motor deficits and no sensory deficits noted Urinary Catheter Management^: Gar: Cath Placed During This Visit: yes Reason for Continuing Indwelling Catheter: Accurate Measurement of Urinary Output in Critically Ill Patients Urinary Catheter Date of Insertion: 09/01/21 Urinary Catheter Time of Insertion: 10:55 Data : 08/27/21 09:58 08/27/21 09:50 A&P Assessment and plan (1) Status post carotid endarterectomy: Postop day #1 status post right carotid neurectomy. Postop A. fib resolved. Plan: DC A-line and DC Gar. Amlodipine 5 mg p.o. We will avoid hydrocodone due to nausea. We will reassess after breakfast this morning and if she continues to progress well will plan for discharge to home. No focal neurologic deficits noted. Status: Acute Attestations Medical Necessity Statement*: POD #1 status post right carotid endarterectomy. Time Spent in Patient Care: 16 - 35 minutes Coding Level of Care Code Acute Neonatal Intensive Care Nurse for Chg Fwd Diagnoses Status post carotid endarterectomy Z98.890
[2021-09-02] MEDS: amlodipine 5 mg Tablet PO (07:17)
--- NOTE | 2021-09-02 09:16 | PC.NURSE ---
[address] Jonas. Reviewed vital signs and medications. Orders to hold am beta abigail d/t bradycardia. Plan to DC art line and muller, and ambulate patient in preparation for discharge home.
[2021-09-02] MEDS: ondansetron 2 mg/ML SDV 2 mL 4 MG IVP (09:33)
[2021-09-02] MEDS: pantoprazole DR 40 mg Tablet PO (09:40)
--- NOTE | 2021-09-02 10:50 | PC.NURSE ---
Patient systolic blood pressure in the 170s. Nitro titrated up to [address] Jonas notified on patient status. Orders orders received. Will continue to monitor blood pressure.
[2021-09-02] MEDS: amlodipine 10 mg Tablet PO (10:59)
[2021-09-02] MEDS: aspirin 81 mg EC Tablet PO (10:59)
--- NOTE | 2021-09-02 12:02 | PC.NURSE ---
Rounded with Dr. Jonas, orders to turn Nitro drip off.
--- NOTE | 2021-09-02 12:38 | PM.DCS ---
Discharge Providers Date of Admission: 09/01/21 08:10 Date of Discharge: September 02, 2021 Attending Provider at Admission: Giuliano Jonas MD Attending Provider at Discharge: Giuliano Jonas MD Primary Care Provider: Mahamed Cuba MD Diagnoses at Discharge Discharge Diagnosis (1) Status post carotid endarterectomy: Status: Acute Reason for Visit Reason for Visit: [facility] Course Hospital Course Ms. Nye was electively admitted for planned right carotid endarterectomy having previously been documented to have high-grade bilateral carotid artery stenoses. Recent CTA reveals 80% right ICA stenosis and 76% left ICA stenosis. Endarterectomy was recommended to reduce her statistical increased risk for spontaneous CVA related to a high-grade lesion. This was carefully discussed with her and her during clinic visits preoperatively. Yesterday, on September 01, she underwent right carotid endarterectomy with patch angioplasty. Postoperatively she convalesced in the ICU where she remained neurologically intact. She developed postoperative atrial fibrillation which was controlled with beta-abigail and subsequent use of IV amiodarone. She spontaneously converted back to sinus rhythm at approximately 4 AM this morning. She also developed nausea with hydrocodone which was subsequently discontinued. She has had some episodes of hypotension requiring the use of amlodipine, IV enalapril, and nitroglycerin drip. Nitroglycerin has now been weaned off. She remains neurologically intact. Voice quality is normal. Tolerating p.o. without difficulty. TYRA drain was removed this morning. Surgical incision is clean and dry. New dressing was applied. She will be discharged to home today in stable condition. Parameters to measure blood pressure were carefully discussed and I have initiated combination amlodipine benazepril for blood pressure control. She has been encouraged to contact Dr. Cuba's office tomorrow to make arrangements for follow-up. She will be scheduled to follow-up with me in 1 week. Physical Exam Const: COMMON NORMALS: patient oriented x3 Neck/C-Spine: COMMON NORMALS: no lymphadenopathy and no JVD OTHER: Neck incision is clean, dry, and intact. Normal ecchymosis. No swelling. TYRA drain site is clean. Resp: COMMON NORMALS: normal respiratory effort, No use of accessory muscles and clear to auscultation bilaterally EFFORT & INSPECTION: Yes able to speak in complete sentences and Yes symmetric chest movement AUSCULTATION: clear to auscultation bilaterally Cardio: COMMON NORMALS: no JVD, regular rate, regular rhythm, S1 normal heart sound present and No rub (Cardio) RATE: regular rate RHYTHM: regular rhythm HEART SOUNDS: S1 normal heart sound present Extremity: COMMON NORMALS: no clubbing, cyanosis or edema Neuro: COMMON NORMALS: patient oriented x3, no focal motor deficits and no sensory deficits noted Urinary Catheter Management^: Gar: Cath Placed During This Visit: yes Reason for Continuing Indwelling Catheter: Accurate Measurement of Urinary Output in Critically Ill Patients Urinary Catheter Date of Insertion: 09/01/21 Urinary Catheter Time of Insertion: 10:55 Discharge Data Data Completed and Pending: Pending at discharge Category Date Time Status Leukocyte Reduced RBC Routine Lab 08/27/21 09:58 Results Type and Screen - Cardiac Routine Lab 08/27/21 09:58 Results Pathology: Surgic al [PTH] Routine Pth 09/01/21 13:56 Received Labs from last 24 hours 08/27/21 09:58 Blood Type B Positive Rho(D) Type Positive Antibody Screen Negative Crossmatch See Detail Vitals: Last Vital Signs Temp 98.0 F 09/02/21 08:00 Pulse 62 09/02/21 12:30 Resp 21 H 09/02/21 12:30 BP 193/73 09/02/21 12:30 Pulse Ox 96 09/02/21 12:30 Discharge Plan Discharge Patient Disposition: Home Condition: Stable Prescriptions: New amlodipine-benazepril 10-20 mg capsule 1 cap PO DAILY Qty: 30 RF: 2 aspirin [Adult Low Dose Aspirin] 81 mg tablet,delayed release (DR/EC) 81 mg PO DAILY Qty: 100 RF: 0 Continued Complete Multivitamin Tablet 1 tab PO DAILY RF: 0 calcium carbonate [Calcium 500] 500 mg calcium (1,250 mg) tablet 500 mg PO DAILY RF: 0 Alphagan P 0.1 % drops 1 drop ophthalmic (eye) Q8H RF: 0 ICaps AREDS2 250 mg-200 unit -12.5 mg-1 mg capsule 1 cap PO BID RF: 0 acetaminophen [Tylenol Extra Strength] 500 mg tablet 500 mg PO Q6H PRN (Reason: pain) RF: 0 ipratropium bromide 21 mcg (0.03 %) spray,non-aerosol See Rx Instructions .ROUTE .COMPLEX Qty: 30 RF: 0 pantoprazole 40 mg tablet,delayed release (DR/EC) 40 mg PO DAILY Qty: 90 RF: 8 Discharge Orders: Discharge Order (Routine); Ordered 09/02/21 Ordered By: Giuliano Jonas Referrals: Giuliano Jonas MD [Physician] - 1 week Discharge Diet: Usual diet Discharge Activity: Limit activity as instructed Patient Instructions: Opioid Safety Activity Restrictions/Additional Instructions: May remove bandage in 2 days May begin daily showers in 3 days No swimming or tub baths x 2 weeks No ointments on incision Report drainage, redness, heat, increased pain, or swelling to clinic No heavy lifting or pulling x3 weeks Record blood pressure at least twice daily. If systolic blood pressure is over 160, contact Dr. Cuba's office for further instructions Discharge Attestations Time Spent in Discharge Care*: less than 30 min Specific Discharge Activities: educating patient, educating and/or supporting family/caregiver, discussing with supportive employment case manager/social workers/dc planners, documenting/other paperwork and evaluating patient/reviewing data Status at Discharge: Cognitive status at discharge: cognitively intact, Functional status at discharge: independent ambulation Overall status at discharge: patient is progressing back to baseline Quality Metrics Clinical Quality Measures During this hospital stay, did patient experience: None Coding Level of Care Code Acute Chg FW DC note Diagnoses Status post carotid endarterectomy Z98.890
== END 2021-09-02 14:58 | disposition home or self-care (01) | DRG 38 ==
LOC: OR 08:11 → ICU 13:59
PROVIDERS: Admitting Provider Thoracic Surgery (Cardiothoracic Vascular Surgery); PCP Internal Medicine; Visit Provider Thoracic Surgery (Cardiothoracic Vascular Surgery)
PROC: 03CK0ZZ Extirpation of Matter from Right Internal Carotid Artery, Open Approach (ICD-10-PCS; CPT 35301; principal; 2021-09-01 10:50)
DX: I65.23 Occlusion and stenosis of bilateral carotid arteries (principal); I97.191 Other postprocedural cardiac functional disturbances following other surgery; M50.020 Cervical disc disorder with myelopathy, mid-cervical region, unspecified level; Z92.21 Personal history of antineoplastic chemotherapy; J42 Unspecified chronic bronchitis; C50.919 Malignant neoplasm of unspecified site of unspecified female breast; Z17.1 Estrogen receptor negative status [ER-]; Z92.3 Personal history of irradiation; Z79.899 Other long term (current) drug therapy; E78.5 Hyperlipidemia, unspecified; Z79.891 Long term (current) use of opiate analgesic; M54.17 Radiculopathy, lumbosacral region; M48.061 Spinal stenosis, lumbar region without neurogenic claudication; Z96.641 Presence of right artificial hip joint; I95.9 Hypotension, unspecified; Z85.72 Personal history of non-Hodgkin lymphomas
CPT/HCPCS: 36415; 51702; 80048; 81003; 85025; 86850; 86900; 86920; 88307; 93005; J0282; J0360; J0690; J1100; J1644; J1650; J1885; J2060; J2250; J2270; J2405; J2704; J2720; J3010; J3370; J3490; J7030; J7060

== ENCOUNTER 2021-09-03 07:26 | Emergency (ER) | payer MEDICARE, OTHER, SELFPAY ==
[2021-09-03 07:28] VITALS: BP 188/65; PULSE 63; RESP 15; TEMP 36.4; O2SAT 100; BMI 21.4
--- NOTE | 2021-09-03 07:42 | ECG_ITS ---
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 Measurements Intervals Mcroberts Rate: 60 P: 61 SC: 189 QRS: 39 QRSD: 83 T: -41 QT: 410 QTc: 410 Interpretive Statements SINUS RHYTHM MODERATE T-WAVE ABNORMALITY, CONSIDER INFERIOR ISCHEMIA [-0.1+ mV T-WAVE IN II/aVF] Compared to ECG 09/01/2021 16:00:05 Atrial fibrillation no longer present T-wave abnormality still present Possible ischemia still present Electronically Signed On 09-04-2021 17:12:48 CDT by Deny Alfonso M.D. [id number]
--- NOTE | 2021-09-03 07:49 | XR_ITS ---
WS: [id number] Portable AP upright chest, 09/03/2021 Clinical Data: weakness, recent endarterectomy Comparison: Portable chest, 08/17/2020. Findings: No nodules, masses or effusions are seen. The heart is normal. The pulmonary vascularity is not increased. No pneumonia or pneumothorax is seen. The right infusion catheter remains in the same position. The aortic arch and descending thoracic aorta show calcification and minimal tortuosity. T here are clips in the right upper quadrant from a cholecystectomy. XR/XR chest 1V portable [id number] Impression: Atherosclerosis.
--- NOTE | 2021-09-03 07:50 | ED_ITS ---
HPI - Female Genitourinary General: Chief complaint: Weakness Stated complaint: DIFFICULTY URINATING Time Seen by Provider: 09/03/21 07:28 History of Present Illness: HPI Narrative: Patient arrives via ambulance with complaint of weakness, dizziness, increased urination. Patient recently had an endarterectomy done and was in the ICU approximately yesterday.. Patient states she is eating and drinking fine. Denies any fevers. Does complain of possible allergic reaction to tape from the recent procedure. Does have itching up in her about the neck. Student nurse that took care of her yesterday in the ICU relates that patient just on seems with it as she was yesterday mentally. MD elicited complaint: other (Increased urination and weakness) Onset (ago): hour(s) Severity: mild Urinary symptoms: Frequency Associated symptoms: Reports other (Weakness); Deny abdominal pain, headache(s) or nausea Review of Systems Const: Reports: other (Weakness); Denies: fever(s), chills or body aches Eyes: Denies: change in vision or blurry vision ENMT: Denies: throat pain or nasal congestion Card: Denies: chest pain or dyspnea on exertion Resp: Denies: dyspnea, productive cough or non-productive cough GI: Denies: abdominal pain, nausea or vomiting : Reports: urinary frequency Musc: Denies: extremity pain Skin/Breast: Reports: erythema (About the areas where dressings are); Denies: rash Neuro: Reports: dizziness; Denies: headache(s) Psych: Denies: anxiety or depression Hector/Lymph: Denies: easy bruising PFSH ED PFSH: Medical History Cervical disc disorder with myelopathy of mid-cervical region Chronic bronchitis Closed head injury GERD (gastroesophageal reflux disease) HX: breast cancer ER NM negative, 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 status post radiation therapy and hormonal therapy, currently on Femara Hyperlipidemia 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 disc disorder 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 region 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 Lumbar stenosis without neurogenic claudication Pain management contract signed Spondylolisthesis of cervical region 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 (cerebrum) Hx of stroke in February 07, 2019 Surgical History H/O total hip arthroplasty Right History of cholecystectomy History of hysterectomy / BSO / appendectomy History of left breast biopsy Port-A-Cath in place 04/16/20 Social History Alcohol intake: never Lives independently: Yes Household members: spouse Marital status: Current occupational status: retired History of recent travel: No Physical Exam Const: COMMON NORMALS: no acute distress, average body habitus and patient oriented x3 HENMT: COMMON NORMALS: normocephalic HEAD & SCALP: normal to inspection and normocephalic FACE & SINUS: normal facial exam MOUTH: other (Dry mucous membranes) Eye: COMMON NORMALS: conjunctivae normal GENERAL EYE: appearance normal, both eyes and all related structures CONJUNCTIVA: Yes conjunctivae normal Neck/C-Spine: COMMON NORMALS: no JVD Chest: COMMONS NORMALS: normal inspection of the chest Resp: COMMON NORMALS: normal respiratory effort AUSCULTATION: diminished lung sounds Cardio: COMMON NORMALS: no JVD, regular rate and regular rhythm RATE: regular rate RHYTHM: regular rhythm GI: COMMON NORMALS: Normal to inspection, nondistended, normoactive bowel sounds present Extremity: COMMON NORMALS: normal to inspection and full ROM Neuro: OTIS COMA SCALE: other (Patient does seem mentally appropriate answers questions appropriately. Patient does sound tired.) COMMON NORMALS: patient oriented x3, moves all extremities, no focal motor deficits and no sensory deficits noted Skin: OTHER: Patient has superficial redness about area endarterectomy wound and also IV on left arm. Course Vital Signs: Vital signs: Vital Signs Temperature 97.5 F L 09/03/21 07:28 Pulse Rate 72 09/03/21 10:30 Respiratory Rate 16 09/03/21 10:30 Blood Pressure 201/86 09/03/21 10:30 Pulse Oximetry 98 09/03/21 10:30 MDM - Female MDM Narrative: Medical decision making narrative: Patient arrived here via ambulance with complaints of urinary frequency and just feeling weak. Patient discharged from ICU yesterday after endarterectomy performed. Patient had no complications. It was thought at first that patient might had some mild confusion but this was related mainly I think to the Zofran she received in route in the ambulance. After Zofran effect wore off patient is doing fine very mentally clear. Bladder scan was done showed retention of 6-700 mils of urine. Patient had to urinate frequently while here in the ER. CAT scan was delayed due to her urinary frequency. Labs appear normal. CT of the head normal chest x-ray looks fine. Patient was ambulated without difficulty and and is felt much better. Gar cath was placed with bag patient instructed follow-up Dr. Cuba either this Wednesday or Wednesday for reassessment. I feel that more likely she had irritation in the urethra due to Gar catheter placement for endarterectomy. Which has caused her acute urinary retention. Lab Data: Labs: Lab Results 09/03/21 09/03/21 09/03/21 07:50 07:50 08:30 WBC 9.4 10^3/uL 10^3/ uL (4.0-10.0) RBC 4.55 10^6/uL 10^6 /uL (4.1-5.3) Hgb 13.8 g/dL g/dL (11.5-15.3) Hct 41.4 % % (37.0-47.0) MCV 91.0 fl fl (81-99) MCH 30.3 pg pg (28.0-34.0) MCHC 33.3 g/dL g/dL (30.0-36.0) RDW 14.2 % % (12.1-15.1) Plt Count 210 10^3/cmm 10^3 /cmm (130-400) MPV 9.7 fL fL (7.4-10.4) Neut % (Auto) 69.5 % % Lymph % (Auto) 18.3 % % Cannon % (Auto) 11.0 % % Eos % (Auto) 0.6 % % Baso % (Auto) 0.4 % % Neut # (Auto) 6.52 10^3/uL 10^3 /uL (1.8-7.7) Lymph # (Auto) 1.7 10^3/uL 10^3/ uL (0.8-4.8) Cannon # (Auto) 1.0 10^3/uL H 10^ 3/uL (0.2-0.9) Eos # (Auto) 0.1 10^3/uL 10^3/ uL (0.0-0.8) Baso # (Auto) 0.0 10^3/uL 10^3/ uL (0.0-0.1) Nucleated RBC % (a uto) 0 % % Nucleated RBCs # 0.0 /100WBC /100W BC Sodium 136 mmol/L mmol/L (136-145) Potassium 3.9 mmol/L mmol/L (3.5-5.1) Chloride 99 mmol/L mmol/L (98-107) Carbon Dioxide 26 mmol/L mmol/L (22-29) Anion Gap 14.9 (5-19) BUN 11 mg/dL mg/dL (8-23) Creatinine 0.5 mg/dL mg/dL (0.5-0.9) GFR Calculation Not Reportable Glucose 97 mg/dL mg/dL (65-115) Calculated Osmolal ity 281 mOsm/kg L mOs m/kg (285-295) Calcium 9.8 mg/dL mg/dL (8.5-10.5) Total Bilirubin 0.6 mg/dL mg/dL (0.15-1.2) AST 22 U/L U/L (0-32) ALT 11 U/L U/L (0-33) Alkaline Phosphata se 88 IU/L IU/L (35-105) Total Protein 7.1 g/dL g/dL (6.6-8.7) Albumin 4.1 g/dL g/dL (3.5-5.2) Globulin 3.0 g/dL g/dL (1.3-4.6) Urine Color Colorless (Yellow) Urine Appearance Clear (CLEAR) Urine pH 8 H (5-7) Ur Specific Gravit y 1.010 (1.005-1.030) Urine Protein Neg (Negative) Urine Glucose (UA) Norm (Normal) Urine Ketones Negative (Negative) Urine Blood Neg (Negative) Urine Nitrate Negative (Negative) Urine Bilirubin Neg (Negative) Prot Sulfosalicyli c Acd Negative (Negative) Urine Urobilinogen Norm mg/dL mg/dL (Negative) Ur Leukocyte Aiyana ase Negative (Negative) EKG Data: EKG 1: EKG Data: 09/03/21 EKG interpretation time: 08:45 Interpretation: Sinus rhythm moderate T wave abnormality, consistent with previous EKGs as recently as yesterday, ventricular rate 60 bpm NM interval 189 ms QRS duration 83 ms QT is 410 ms Discharge Plan Discharge Patient Disposition: Home Clinical Impression: Acute retention of urine, Weakness Condition: Stable Prescriptions: New cephalexin 500 mg capsule 500 mg PO Q8H 7 Days Qty: 21 RF: 0 No Action calcium carbonate [Calcium 500] 500 mg calcium (1,250 mg) tablet 500 mg PO DAILY RF: 0 ICaps AREDS2 250 mg-200 unit -12.5 mg-1 mg capsule 1 cap PO BID RF: 0 acetaminophen [Tylenol Extra Strength] 500 mg tablet 500 mg PO Q6H PRN (Reason: pain) RF: 0 ipratropium bromide 21 mcg (0.03 %) spray,non-aerosol See Rx Instructions .ROUTE .COMPLEX Qty: 30 RF: 0 aspirin [Adult Low Dose Aspirin] 81 mg tablet,delayed release (DR/EC) 81 mg PO DAILY Qty: 100 RF: 0 multivitamin Tablet 1 tab PO DAILY RF: 0 amlodipine-benazepril 10-20 mg capsule 1 cap PO DAILY RF: 0 pantoprazole 40 mg tablet,delayed release (DR/EC) 40 mg PO BID RF: 0 latanoprost 0.005 % drops 1 drp ophthalmic (eye) BEDTIME RF: 0 timolol maleate 0.5 % drops 1 drp ophthalmic (eye) BID RF: 0 Alphagan P 0.1 % drops 1 drp ophthalmic (eye) BID RF: 0 Discharge Orders: Discharge ED (Routine); Ordered 09/03/21 Ordered By: Lg Blackwell Referrals: Mahamed Cuba MD [Primary Care Provider] - Discharge Diet: Usual diet Discharge Activity: Increase activity as tolerated Patient Instructions: Gar Catheter Placement and Care (ED) Activity Restrictions/Additional Instructions: Follow-up with medical provider as directed. Take medications as prescribed. Return to the ER or your medical provider if condition worsens. Please read and understand discharge instructions. If any questions ask please. Coding Level of Care Code ED Classified Ad Clerk for [place] Exam Comprehensive
[2021-09-03 08:11] LABS: Basophils % 0.4 %; Eosinophils # 0.1 10^3/uL (0.0-0.8); Eosinophils % 0.6 %; Hematocrit 41.4 % (37.0-47.0); Hemoglobin 13.8 g/dL (11.5-15.3); Lymphocytes # 1.7 10^3/uL (0.8-4.8); Lymphocytes % 18.3 %; Mean Corpuscular HGB Conc 33.3 g/dL (30.0-36.0); Mean Corpuscular Hemoglobin 30.3 pg (28.0-34.0); Mean Platelet Volume 9.7 fL (7.4-10.4); Neutrophils # 6.52 10^3/uL (1.8-7.7); Neutrophils % 69.5 %; Nucleated Red Blood Cells % 0 %; Platelet Count 210 10^3/cmm (130-400); Red Blood Count 4.55 10^6/uL (4.1-5.3); Red Cell Distribution Width 14.2 % (12.1-15.1); White Blood Count 9.4 10^3/uL (4.0-10.0)
[2021-09-03 08:13] LABS: Alanine Aminotransferase 11 U/L (0-33); Albumin Level 4.1 g/dL (3.5-5.2); Alkaline Phosphatase 88 IU/L (35-105); Anion Gap 14.9 (5-19); Aspartate Amino Transferase 22 U/L (0-32); Blood Urea Nitrogen 11 mg/dL (8-23); Calcium 9.8 mg/dL (8.5-10.5); Carbon Dioxide 26 mmol/L (22-29); Chloride 99 mmol/L (98-107); Glucose 97 mg/dL (65-115); Osmolality Calculated 281 mOsm/kg (285-295); Potassium 3.9 mmol/L (3.5-5.1); Sodium 136 mmol/L (136-145); Total Bilirubin 0.6 mg/dL (0.15-1.2); Total Protein 7.1 g/dL (6.6-8.7)
[2021-09-03] MEDS: sodium chloride 0.9% 1,000 ML 999 ML IV (08:15)
[2021-09-03 08:53] VITALS: BP 188/65; PULSE 81; RESP 18; O2SAT 95
[2021-09-03 09:02] LABS: Add Urine Microscopic? NO; Charge for UA Resulting for Rev
[2021-09-03 09:10] LABS: Bilirubin Urine Neg (Negative); Blood Urine Neg (Negative); Glucose Urine UA Norm (Normal); Ketones Urine Negative (Negative); Leukocyte Esterase Urine Negative (Negative); Nitrate Urine Negative (Negative); Protein Urine Neg (Negative); Sulfosalicylic Acid Urine Negative (Negative); Urine Appearance Clear (CLEAR); Urine Color Colorless (Yellow); Urobilinogen Urine Norm (Negative); pH Urine 8 (5-7)
--- NOTE | 2021-09-03 09:21 | CT_ITS ---
WS: [id number] CT HEAD TECHNIQUE: Noncontrast CT of the head obtained from the skullbase to the vertex. CLINICAL INFORMATION: weakness, AMS COMPARISON: September 18, 2020 DLP: 1532.[address] scans at [facility] use at least one of these dose optimization techniques: automated e xposure control; mA and/or kV adjustment per patient size (includes targeted exams where dose is matc hed to clinical indication); or iterative reconstruction. FINDINGS: No evidence of intracranial hemorrhage or mass effect. Ventricular system and basal cisterns are martinez nt. Moderate small vessel changes with moderate parenchymal volume loss. No extra-axial fluid collect ions. No evidence of mass or mass effect. Intracranial vascular calcification. Mild mucosal thickening right mastoid tip. Left mastoid air cells are well aerated. Opacification rig ht frontal sinus and frontoethmoidal recess. Partial opacification right ethmoid air cells. Slight mu cosal thickening right sphenoid sinus. CT/CT head wo con* [id number] IMPRESSION: 1. No evidence of intracranial hemorrhage or mass effect. 2. Moderate small vessel changes moderate parenchymal volume loss. 3. Opacification right frontal sinus and right frontoethmoidal recess consiste nt with sinusitis. Partial opacification right ethmoid air cells. This was pres ent on September 18, 2020. 4. No acute intracranial findings.
--- NOTE | 2021-09-03 10:28 | PC.NURSE ---
Ambulated pt for 20 feet per provider evaluation order. Pt showed no signs of weakness or stated dizziness. Gait normal for pt who has pain in her left hip.
[2021-09-03 10:30] VITALS: BP 201/86; PULSE 72; RESP 16; O2SAT 98
[2021-09-03] MEDS: cephALEXin 500 mg Capsule PO (11:05)
[2021-09-03 12:02] VITALS: BP 147/106; PULSE 75; RESP 14; O2SAT 97
--- NOTE | 2021-09-03 12:06 | PC.NURSE ---
Surgical dressing changed and re-secured following inspection. Advised pt to keep dressing on the prescribed time by surgeon.
== END 2021-09-03 11:59 | disposition home or self-care (01) ==
PROVIDERS: Emergency Provider Nurse Practitioner Family; PCP Internal Medicine
DX: R33.9 Retention of urine, unspecified (principal); R53.1 Weakness; E78.5 Hyperlipidemia, unspecified; Z79.82 Long term (current) use of aspirin; Z86.73 Personal history of transient ischemic attack (TIA), and cerebral infarction without residual deficits; Z92.3 Personal history of irradiation
CPT/HCPCS: 51702; 51798; 70450; 71045; 80053; 81003; 85025; 93005; 96360; 99284; J7030

== ENCOUNTER → 2021-09-23 10:38 | Outpatient (BNVA) | payer MEDICARE, SELFPAY | PROVIDERS: PCP Internal Medicine; Visit Provider Surgery | DX: Z01.812 Encounter for preprocedural laboratory examination (principal); Z20.822 Contact with and (suspected) exposure to COVID-19 | CPT/HCPCS: 87635 ==

== ENCOUNTER 2021-09-29 06:53 | Day surgery (SDC) | payer MEDICARE, SELFPAY ==
[2021-09-24 10:32] VITALS: BMI 21.4
[2021-09-29] VITALS (11 sets, daily range): BP systolic 148–192; BP diastolic 67–83; PULSE 57–77; RESP 12–18; TEMP 36.4–36.6; O2SAT 96–100
[2021-09-29] MEDS: sodium chloride 0.9% 1,000 ML 30 ML IV (07:53)
--- NOTE | 2021-09-29 08:28 | ANES.PREANE2 ---
Pre-Anesthetic Assessment Pre-Anesthetic Assessment: Height/Weight: Height 1.57 m Weight 53.07 kg Temp Pulse Resp BP Pulse Ox 97.9 F 57 L 18 168/82 98 09/29/21 07:17 09/29/21 07:17 09/29/21 07:17 09/29/21 07:17 09/29/21 07:17 Preop Diagnosis: Port in place Proposed Procedure: Operation Date: 09/29/21 08:50 Proposed Procedures p Portacath Removal 26133 Z95.828(Not Applicable) - Neftaly Urrutia MD Was Beta Wyatt taken within 24 hours: N/A Was Clonidine taken within 24 hours: N/A Last intake: Intake Last Liquid Date 09/28/21 Last Liquid Time 19:00 Last Solid Date 09/28/21 Last Solid Time 19:00 Social: Social History: No alcohol and No tobacco Exam: Pre-Anes Outpt Exam: alert, oriented x 3, clear to auscultation bilaterally and regular rate & rhythm Airway: Submandibular: WNL Cervical ROM: WNL MP: 2 Dentition: False GI: GI: GERD Musc/skel: Musc/skel: Lower Back Pain Anesthetic Plan: ASA status: 3 Anesthesia: MAC Risk of > 500 ml blood loss (7ml/kg in children): No Meds/Allergies Current Medications: Current Medications Generic Name Dose Route Start Last Admin Trade Name Freq PRN Reason Stop Dose Admin Sodium Chloride 1,000 mls @ 30 ml s/hr 09/29/21 07:15 09/29/21 07:53 Sodium Chloride 0.9% IV 09/30/21 07:14 30 mls/hr .Q24H DEIDRE Administration PFSH Anesthesia PFSH: Medical History Bilateral carotid artery stenosis without cerebral infarction Cervical disc disorder with myelopathy of mid-cervical region Chronic bronchitis Closed head injury GERD (gastroesophageal reflux disease) HX: breast cancer ER MT negative, 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 status post radiation therapy and hormonal therapy, currently on Femara Hyperlipidemia 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 disc disorder 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 region detention (current) use of opiate analgesic Lumbar stenosis without neurogenic claudication Pain management contract signed Spondylolisthesis of cervical region 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 (cerebrum) Hx of stroke in February 07, 2019 Surgical History H/O total hip arthroplasty Right History of cholecystectomy History of hysterectomy / BSO / appendectomy History of left breast biopsy Port-A-Cath in place 04/16/20 Status post carotid endarterectomy Social History Alcohol intake: never Lives independently: Yes Household members: spouse Marital status: Current occupational status: retired History of recent travel: No Data Anesthesia Cardiac Studies: No Data to Display
--- NOTE | 2021-09-29 09:05 | W.PM.OPSUD ---
Surgery/Procedure H&P Update DATE OF PROCEDURE: September 29, 2021 DATE H&P PERFORMED: 09/22/21 H&P UPDATE INFORMATION: I have reviewed H&P completed within last 30 days, I have examined patient prior to procedure and No changes to prior documentation PREOP DIAGNOSIS: Port in place PRIMARY INDICATION FOR PROCEDURE: The same PLANNED PROCEDURE: Operation Date: 09/29/21 08:50 Proposed Procedures p Portacath Removal 47684 Z95.828(Not Applicable) - Neftaly Urrutia MD
[2021-09-29] MEDS: lidocaine 2% INJ 20 mL INJECTION (09:32)
--- NOTE | 2021-09-29 09:39 | P.OP_ITS ---
Operative Report Date of procedure: September 29, 2021 Pre-op Diagnosis: Port in place Post-op diagnosis: same Procedure Done: Explantation of right subclavian vein PowerPort Surgeon: Neftaly Urrutia Laser Systems Engineer: seal delivery vehicle team technician Shyanne Circulating nurse Karine Anesthesia: MAC (Ramya Rocha) Estimated blood loss (mL): 5 Condition: stable Disposition: same day Procedure: After identifying the patient in the holding area, informed consent per chart ,patient was then transferred to the operative suite, was placed in supine position, IV propofol was infused by the anesthesia provider and both arms were tucked, prep and drape of the right upper chest region was done usual sterile technique. Time-out was done verifying the patient's name/date of /planned procedure and destination after the procedure, all were in agreement. I started by injection of lidocaine 2% at the site of the planned incision started by an transverse incision including the previous scar of the catheter placement located at the right upper chest, after removal of the sutures and dissection of the catheter the whole system was delivered out from the wound without difficulty, at this point the catheter was removed at the same time direct pressure was applied at the site of the right subclavian vein stick to prevent bleeding. Thorough irrigation of the wound was done followed by hemostasis.Closure using 3/0 Vicryl as deep subdermal sutures was achieved , followed by loose closure using 4-0 Monocryl to approximate skin edges Surgical glue was then placed allowed by dry dressing Patient tolerated the procedure well, count of instruments, needles and sponges were completed at the end of the procedure.And then patient was transferred to the recovery area in stable condition. I Was present for the whole entire procedure
--- NOTE | 2021-09-29 10:04 | P.PCN_ITS ---
Documented by User: Aj Estrada CRNA 09/29/21 10:04 PACU note PACU note: VSS, Good respiratory effort, report to ASSOCIATE PROFESSOR OF HISTORY Post-Anesthesia Exam: awake
--- NOTE | 2021-09-29 10:04 | PM.PACU ---
Documented by User: Aj Estrada CRNA 09/29/21 10:04 PACU note PACU note: VSS, Good respiratory effort, report to MOBILE THERAPIST Post-Anesthesia Exam: awake
[2021-09-29] MEDS: hyDRALAzine 20 mg/mL INJ 1 mL 5 MG IVP ×2 (10:10→10:25)
[2021-09-29] MEDS: ondansetron 2 mg/ML SDV 2 mL 4 MG IVP (11:11)
--- NOTE | 2021-09-29 13:48 | ANE.PACU2 ---
Inpatient post-anesthesia follow up: Airway intact: Yes Vital signs: Temperature 97.7 F Pulse Rate 77 Respiratory Rate 16 Blood Pressure 148/67 Pulse Oximetry 97 Oxygen Delivery Me thod Room Air Oxygen Flow Rate Fraction of Inspir ed Oxygen Hydration adequate: Yes Nausea and vomiting: No Pain level: 2 Mental status: Baseline
== END 2021-09-29 11:35 | disposition home or self-care (01) ==
PROVIDERS: PCP Internal Medicine; Visit Provider Surgery
PROC: (CPT 36589; principal; 2021-09-29 08:40)
DX: Z95.828 Presence of other vascular implants and grafts (principal); Z85.3 Personal history of malignant neoplasm of breast; Z86.73 Personal history of transient ischemic attack (TIA), and cerebral infarction without residual deficits
CPT/HCPCS: 36590; J0360; J0690; J2250; J2405; J2704; J3010; J7030

== ENCOUNTER 2021-10-13 10:48 | Outpatient (CLI) | payer MEDICARE, SELFPAY ==
[2021-10-13 11:22] LABS: Basophils # 0.1 10^3/uL (0.0-0.1); Basophils % 0.9 %; Eosinophils # 0.2 10^3/uL (0.0-0.8); Eosinophils % 2.8 %; Hematocrit 39.4 % (37.0-47.0); Hemoglobin 12.8 g/dL (11.5-15.3); Lymphocytes # 1.9 10^3/uL (0.8-4.8); Lymphocytes % 29.6 %; Mean Corpuscular HGB Conc 32.5 g/dL (30.0-36.0); Mean Corpuscular Hemoglobin 30.5 pg (28.0-34.0); Mean Platelet Volume 8.8 fL (7.4-10.4); Monocytes # 0.8 10^3/uL (0.2-0.9); Monocytes % 12.9 %; Neutrophils # 3.41 10^3/uL (1.8-7.7); Neutrophils % 53.5 %; Nucleated Red Blood Cells % 0 %; Platelet Count 199 10^3/cmm (130-400); Red Blood Count 4.19 10^6/uL (4.1-5.3); Red Cell Distribution Width 14.1 % (12.1-15.1); White Blood Count 6.4 10^3/uL (4.0-10.0)
[2021-10-13 11:39] LABS: Alanine Aminotransferase 11 U/L (0-33); Albumin Level 4.2 g/dL (3.5-5.2); Alkaline Phosphatase 76 IU/L (35-105); Anion Gap 15.5 (5-19); Aspartate Amino Transferase 20 U/L (0-32); Blood Urea Nitrogen 12 mg/dL (8-23); Calcium 9.1 mg/dL (8.5-10.5); Carbon Dioxide 26 mmol/L (22-29); Chloride 99 mmol/L (98-107); Globulin 2.5 g/dL (1.3-4.6); Glucose 83 mg/dL (65-115); Lactate Dehydrogenase 197 U/L (135-214); Osmolality Calculated 281 mOsm/kg (285-295); Potassium 4.5 mmol/L (3.5-5.1); Sodium 136 mmol/L (136-145); Total Bilirubin 0.3 mg/dL (0.15-1.2); Total Protein 6.7 g/dL (6.6-8.7)
[2021-10-13 15:16] LABS: Urine Color Yellow (Yellow)
[2021-10-13 15:17] LABS: Add Urine Culture? No; Add Urine Microscopic? YES; Bacteria Urine TRACE /hpf; Bilirubin Urine Neg (Negative); Blood Urine Neg (Negative); Glucose Urine UA Norm (Normal); Ketones Urine Negative (Negative); Leukocyte Esterase Urine Trace (Negative); Mucus Urine TRACE /hpf; Nitrate Urine Negative (Negative); Protein Urine Neg (Negative); RBC Urine 0-4 /hpf (0-2); Specific Gravity, Urine 1.015 (1.005-1.030); Squamous Epithelial Cell Urine 0-4 /hpf (0-5); Urine Appearance Clear (CLEAR); Urobilinogen Urine Norm (Negative); WBC Urine 0-4 /hpf (0-5); pH Urine 6.5 (5-7)
--- NOTE | 2021-10-13 17:13 | ONC FU_ITS ---
Dr. Thompson follow up note Patient: Jenna Nye V Unit #: [id number]: 1945 Dicatated By: Carl Thompson M.D.Date of Visit:Oct 13, 2021 Onc Med Follow-up/Prog Note History of Present Illness: Mrs Nye is a 76 year old postmenopausal woman who underwent routine screening mammogram on 01/12/2014 and was found to have a suspicious 9.6 mm nodule at 3:00 position. Additional views and ultrasound was performed on 02/03/2014. It showed 2 small suspicious lesions at 3:00 -5 cm from the nipple and at 3:00 -3 cm from the nipple. The ultrasound-guided biopsy on 02/22/2014 showed mixed ductal and lobular infiltrating carcinoma, grade 2/3, involving both locations. Prognostic markers revealed ER 99%, OR 97%, HER-2 2+ by IHC, FISH ratio 1.08. On 03/08/2014 she underwent left axilla sentinel lymph node biopsy and left breast lumpectomy twice. Her pathology showed a residual invasive carcinoma with extensive component of DCIS. The largest invasive component measured 1.4 cm. Thus, stage IA, T1c, N0, M0. She required 2 additional surgeries on 03/22/2014 and on 04/05/2014 for positive margins. The Oncotype DX score is 16, low risk, no adjuvant chemotherapy was delivered. She completed 5040 cGy of radiation to the breast followed by boost on 08/02/14. She began on adjuvant Arimidex therapy in August of 2014. The treatment was complicated with persistent headaches and hot flashes. Her therapy was changed to Femara in September of 2014. MRI of the brain was negative for metastatic disease on 10/02/14. Baseline DEXA scan on 08/15/2014 was normal. She had taken Femara until 11-30-16 at which time it was placed on hold as well as the Effexor due to problems with night cao and worsening hot flashes as well as some joint pain. She was off the Femara and Effexor for a little over 4 weeks before she attempted to resume it. She has resumed it along with the Effexor and has tolerated it well. 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 Patient underwent CT PET scan on 02/24/2020 which showed hypermetabolic gastric wall thickening with questionable invasion into adjacent liver. No evidence of lavelle or additional extranodal disease. Echocardiogram done on May 10, 2020 showed ejection fraction 62%. Ms Nye tarted on systemic chemotherapy with R-CHOP on May 13, 2020. as per patient on July 15, 2020 she was admitted to hospital with big knot on her left side of her head, as per patient she tripped over a stone in her garden and hit her head but denies any seizure-like activity denies any focal weakness before or after the fall. In emergency room CT scan of the head done showed no acute findings and carotid duplex study shows 70 to 99% stenosis bilaterally and CTA of the head and neck redemonstrated occlusive disease, patient was referred to Dr. Jonas as an outpatient also had 2D echocardiogram done which showed ejection fraction 60% patient was advised to continue with aspirin, as per patient she went to [facility] again recently on July 28, 2020 with abdominal pain and CT scan of abdomen pelvis was done which shows no acute intra-abdominal process, no free air but large amount of stool throughout large bowel. And nodular density left breast approximately 18 mm seen mammogram was done on July 12, 2020 did show left breast abnormality BI-RADS 4 for which she was referred for biopsy of lesion at 12:00 and 2 o'clock position in left breast. Mrs. Nye underwent ultrasound-guided left breast biopsy on 08/07/2020. She had biopsy of the left breast mass at the 12 o'clock position which reported as benign fibroadipose tissue no malignancy identified. Left breast mass biopsy at 1:00 with benign fibroadipose tissue no malignancy identified. Left breast biopsy 2 o'clock position: benign fibroadipose tissue no malignancy identified. Breast scar site #1 left breast: benign fibroadipose tissue with no malignancy identified. Left breast breast scar site #2 : Benign fibroadipose tissue with no malignancy identified. Immunohistochemical stains were performed on the sites as above to rule out any residual malignancy. No malignancy was identified. A 6-month follow-up with bilateral diagnostic mammography and bilateral ultrasound was recommended. Follow-up PET/CT was obtained After 3 cycles of chemotherapy with R-CHOP ,on August 15, 2020 per Ruthie in [place] (due to insurance requirements). The impression was no hypermetabolic lymph nodes are seen to suggest metabolically active disease. She states that she has been in the emergency room and admitted overnight on 08/17/2020 (discharged on 08/18/2020) for what she says was nasal drainage that made her cough that made her choke and then her whole body went numb. She had work-up in the ER with no specific results found???she did not have a barium swallow as recommended. She did have endoscopy which she states reported hiatal hernia. She was referred to radiation oncology for consolidation therapy to the stomach which she completed on October 01, 2020 Follow-up CT scan of chest abdomen pelvis done on December 05, 2020 showed no adenopathy within the chest abdomen pelvis. Continued mild mucosal thickening involving antrum of the stomach. Mild chronic inflammatory changes and micronodules within the lung are stable. Diverticular disease without acute diverticulitis. Came for follow-up, denies any specific complaints,, Complaining of off and on dysuria no fever chills, no nausea or vomiting, no diarrhea constipation, no melena hematochezia, no hemoptysis hematemesis, no night sweats, no jaundice, no recurrent fever or weight loss. As per patient she has her Port-A-Cath removed and also underwent right carotid endarterectomy on September 01, 2021 Medications: Acetaminophen 2 Capsule (of 500 mg) Capsule Oral PRN, Calcium 600/Vitamin D 1 (600-400 mg - Units) Tablet Oral b.i.d., Eye Drops 2 Drop(s) Solution Ophthalmic daily PRN, Femara 1 (2.5 mg) Tablet Oral daily, Simvastatin 1 (20 mg) Tablet Oral daily, Venlafaxine HCl 1 (75 mg) Tablet Oral daily Allergies: Eggs and Paper tape. Review of Systems: Review of Systems is not available for this patient. Vital Signs: Performed on Oct 13, 2021 16:11 Height - 62.00 in Weight - 122.4 lbs (HIGH) BSA - 1.55 sq.m BMI - 22.39 Temperature - 97.4 F (LOW) Pulse - 64 /min Respiration - 16 /min BP - 186/76 mm(hg) (HIGH) O2 Sat - 99 % Pain - 10 Fatigue - 6 Performance Status: 0 - Fully active, able to carry on all predisease activities without restrictions. (ECOG) Physical Examination: Respiratory - Lungs are clear to auscultation, Cardiovascular - Regular rate and rhythm of heart, Gastrointestinal - Soft, bowel sounds present, Extremities - No visible edema. Lab/Imaging: Most recent lab results are not available for this patient. 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 There is loss of fat plane between posterior left hepatic lobe and invasion cannot be excluded. No evidence of lavelle or additional extranodal disease. Started on systemic chemotherapy with R-CHOP on May 13, 2020 and follow-up CT PET scan done after 3 cycles of R-CHOP on August 15, 2020 showed excellent response e.g. complete remission, patient was referred to radiation oncology for involved field radiation therapy to the stomach wall which was started on September 03, 2020 and completed on October 01, 2020 total 3600 rods Follow-up CT scan of chest abdomen pelvis done on December 05, 2020 showed no evidence of lymphadenopathy within the chest abdomen or pelvis. Continued mild mucosal thickening involving antrum of the stomach Mild chronic inflammatory changes and micronodules within the lungs are stable. 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 The Oncotype DX score is 16, corresponding to about 10% risk of 10 year recurrence after completion of hormonal therapy. She completed adjuvant radiation on 08/02/14. She was a candidate hormonal therapy with aromatase inhibitors for 5 years, Arimidex at 1 mg daily was recommended. The side effects of the treatment include worsening arthralgias and accelerated bone density loss amongst others. Arimidex therapy began in August of 2014, thus far complicated with significant debilitating headaches and hot flashes. Treatment was changed to Femara, headaches resolved. Hot flashes resolved with Effexor. She is doing well. She had a hip replacement in 2017. She remains on Femara and Effexor. Mrs Nye presented on June 24, 2020 with concerns of persistent left breast pain for at least 2 weeks. A bilateral diagnostic mammogram was obtained on 07/01/2020 and was found to be abnormal. She had additional views on 07/12/2020 which reported RIGHT breast soft tissues masses at the 12:00 position and the largest area measured 4.1 x 6.2 x 4.6 cm. The LEFT breast was found to have multiple abnormalities identified by ultrasound. The largest near the scar site was measuring 3 cm x 0.7 x 1.5 cm. Ultrasound guided biopsy was then recommended. She underwent ultrasound-guided breast biopsy on 08/06/2020 with 5 specimens obtained from the 12:00, 1:00 and 2:00 and all 5 were negative for malignancy. The right breast was not biopsied. Plan: Discussed with patient regarding her labs white blood count 6.4 hemoglobin 12.8 g hematocrit 39.4 platelets 199,000 CMP within normal limits LDH 197 Clinically, patient is doing well with no new signs symptoms just to recurrence of disease, no B symptoms her lab work-up is within normal range on exam there is no peripheral lymphadenopathy or organomegaly. At this point we will continue to monitor and she will return to clinic in 6 months with CBC CMP and LDH As far as off and on dysuria is concerned, patient was advised to maintain good hydration but will check her urinalysis if any sign of infection will consider oral antibiotics Signed By: Carl Thompson M.D. <<Signature on File>>
== END 2021-10-13 10:49 | disposition home or self-care (01) ==
LOC: ONCMED 10:52
PROVIDERS: PCP Internal Medicine; Visit Provider Internal Medicine Hematology & Oncology
DX: Z85.3 Personal history of malignant neoplasm of breast (principal); Z79.899 Other long term (current) drug therapy; R30.0 Dysuria
CPT/HCPCS: 36415; 80053; 81001; 83615; 85025; 99214

== ENCOUNTER 2021-11-18 08:19 | Emergency (ER) | payer MEDICARE, SELFPAY ==
[2021-11-18 08:35] VITALS: BP 136/85; PULSE 62; RESP 16; TEMP 36.6; O2SAT 97; BMI 21.4
--- NOTE | 2021-11-18 08:50 | W.ED.BACK ---
HPI - Back Pain/Injury General: Chief Complaint: Back Pain/Injury Stated Complaint: RIGHT FLANK AND BACK PAIN Time Seen by Provider: 11/18/21 08:28 History of Present Illness: HPI Narrative: 76 year old female presents to ER with right hip pain. She has a history of right hip replacement around 5-6 years ago, and has chronic right hip pain. She reports slipping in mud 3 days ago which exacerbated her right hip pain. Reports 10/10 pain, has tried Tylenol which makes the pain a little better. Movement makes the pain worse. Reports lightning pain from right hip radiating into right groin area and right flank. Denies loss of bladder or bowel function. Onset (ago): day(s) Radiation: groin Exacerbating factors: movement Relieving factors: medication (Tylenol) Associated symptoms: Reports difficulty walking; Deny chills, change in bowel habits, dysuria, fatigue, fecal incontinence, fever(s) or numbness Review of Systems Const: Denies: fever(s), chills, body aches, change in appetite, fatigue or malaise ENMT: Denies: throat pain, ear or mastoid pain, nasal discharge or nasal congestion Card: Denies: chest pain, edema, dyspnea on exertion or orthopnea Resp: Denies: dyspnea, productive cough or non-productive cough GI: Denies: fecal incontinence or change in bowel habits : Denies: dysuria Skin/Breast: Denies: rash or pruritus Neuro: Reports: difficulty walking PFS ED PFSH: Medical History Bilateral carotid artery stenosis without cerebral infarction Cervical disc disorder with myelopathy of mid-cervical region Chronic bronchitis Closed head injury GERD (gastroesophageal reflux disease) HX: breast cancer ER [place] negative, 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 status post radiation therapy and hormonal therapy, currently on Femara Hyperlipidemia 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 disc disorder 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 region 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 Lumbar stenosis without neurogenic claudication Pain management contract signed Spondylolisthesis of cervical region 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 (cerebrum) Hx of stroke in February 07, 2019 Surgical History H/O total hip arthroplasty Right History of cholecystectomy History of hysterectomy / BSO / appendectomy History of left breast biopsy Port-A-Cath in place 04/16/20 Status post carotid endarterectomy Social History Smoking and tobacco status: never smoked Alcohol intake: never Lives independently: Yes Household members: spouse Marital status: Current occupational status: retired History of recent travel: No Physical Exam Const: GENERAL APPEARANCE: cooperative and comfortable ORIENTATION/CONSCIOUSNESS: Yes awake, Yes oriented to person, Yes oriented to place and Yes oriented to time Resp: COMMON NORMALS: normal respiratory effort, No retractions, No use of accessory muscles and clear to auscultation bilaterally AUSCULTATION: clear to auscultation bilaterally Cardio: COMMON NORMALS: regular rate, regular rhythm and No murmurs present (Cardio) RATE: regular rate RHYTHM: regular rhythm GI: COMMON NORMALS: Soft to palpation AUSCULTATION: Yes normoactive bowel sounds PALPATION: Yes Soft to palpation, Yes Tenderness to palpation present (GI) Details: RLQ and No Guarding due to palpation present (GI) Extremity: COMMON NORMALS: normal to inspection and no clubbing, cyanosis or edema OTHER: Tender to palpation in R hip. Straight leg test negative on right side. Neuro: SENSORIUM/ORIENTATION: Yes oriented to person, Yes oriented to place and Yes oriented to time Skin: COMMON NORMALS: no rashes or lesions noted GENERAL SKIN EXAM: no rashes or lesions noted Course Vital Signs: Vital signs: Vital Signs Temperature 97.8 F 11/18/21 08:35 Pulse Rate 62 11/18/21 11:16 Respiratory Rate 18 11/18/21 11:16 Blood Pressure 172/72 11/18/21 11:16 Pulse Oximetry 98 11/18/21 11:16 MDM - Back Pain/Injury MDM Narrative Medical decision making narrative: Labs and imaging reviewed. No acute fractures. Discharge patient home continue to use previously prescribed hydrocodone. Follow-up primary care return if has further problems. Medical Records Attestation: I reviewed the patient's medical records. Lab Data Attestation: I reviewed the patient's lab results. Result diagrams: 11/18/21 09:10 11/18/21 09:10 Labs: Lab Results 11/18/21 11/18/21 11/18/21 09:10 09:10 09:20 WBC 6.5 10^3/uL 10^3/uL (4.0-10.0) RBC 4.55 10^6/uL 10^6/uL (4.1-5.3) Hgb 14.1 g/dL g/dL (11.5-15.3) Hct 41.7 % % (37.0-47.0) MCV 91.6 fl fl (81-99) MCH 31.0 pg pg (28.0-34.0) MCHC 33.8 g/dL g/dL (30.0-36.0) RDW 13.2 % % (12.1-15.1) Plt Count 194 10^3/cmm 10^3/cmm (130-400) MPV 8.9 fL fL (7.4-10.4) Neut % (Auto) 59.4 % % Lymph % (Auto) 23.4 % % [place] % (Auto) 13.0 % % Eos % (Auto) 3.1 % % Baso % (Auto) 0.9 % % Neut # (Auto) 3.83 10^3/uL 10^3/uL (1.8-7.7) Lymph # (Auto) 1.5 10^3/uL 10^3/uL (0.8-4.8) [place] # (Auto) 0.8 10^3/uL 10^3/uL (0.2-0.9) Eos # (Auto) 0.2 10^3/uL 10^3/uL (0.0-0.8) Baso # (Auto) 0.1 10^3/uL 10^3/uL (0.0-0.1) Nucleated RBC % (auto) 0 % % Nucleated RBCs # 0.0 /100WBC /100WBC Sodium 136 mmol/L mmol/L (136-145) Potassium 4.5 mmol/L mmol/L (3.5-5.1) Chloride 99 mmol/L mmol/L (98-107) Carbon Dioxide 24 mmol/L mmol/L (22-29) Anion Gap 17.5 (5-19) BUN 14 mg/dL mg/dL (8-23) Creatinine 0.5 mg/dL mg/dL (0.5-0.9) GFR Calculation Not Reportable Glucose 87 mg/dL mg/dL (65-115) Calculated Osmolality 282 mOsm/kg L mOsm/kg (285-295) Calcium 9.8 mg/dL mg/dL (8.5-10.5) Total Bilirubin 0.4 mg/dL mg/dL (0.15-1.2) AST 21 U/L U/L (0-32) ALT 11 U/L U/L (0-33) Alkaline Phosphatase 101 IU/L IU/L (35-105) Total Protein 7.1 g/dL g/dL (6.6-8.7) Albumin 4.3 g/dL g/dL (3.5-5.2) Globulin 2.8 g/dL g/dL (1.3-4.6) Urine Color Straw (Yellow) Urine Appearance Clear (CLEAR) Urine pH 8 H (5-7) Ur Specific [place] 1.010 (1.005-1.030) Urine Protein Neg (Negative) Urine Glucose (UA) Norm (Normal) Urine Ketones Negative (Negative) Urine Blood Neg (Negative) Urine Nitrate Negative (Negative) Urine Bilirubin Neg (Negative) Prot Sulfosalicylic Acd Negative (Negative) Urine Urobilinogen Norm mg/dL mg/dL (Negative) Ur Leukocyte Esterase Negative (Negative) Discharge Plan Discharge Patient Disposition: Home Clinical Impression: Fall, Bilateral hip pain, Back pain with right-sided sciatica Condition: Stable Prescriptions: No Action acetaminophen [Tylenol Extra Strength] 500 mg tablet 500 mg PO Q6H PRN (Reason: pain) 0RF ciprofloxacin HCl 500 mg tablet 500 mg PO BID 5 Days Qty: 10 0RF ipratropium bromide 21 mcg (0.03 %) spray,non-aerosol See Rx Instructions .ROUTE .COMPLEX Qty: 30 0RF Dose Instruction: USE 2 SPRAY(S) IN EACH NOSTRIL THREE TIMES DAILY Rx Instructions: USE 2 SPRAY(S) IN EACH NOSTRIL THREE TIMES DAILY multivitamin Tablet 1 tab PO DAILY 0RF pantoprazole 40 mg tablet,delayed release (DR/EC) 40 mg PO BID 0RF latanoprost 0.005 % drops 1 drp ophthalmic (eye) BEDTIME 0RF Rx Instructions: BOTH EYES timolol maleate 0.5 % drops 1 drp ophthalmic (eye) BID 0RF Rx Instructions: BOTH EYES Alphagan P 0.1 % drops 1 drp ophthalmic (eye) BID 0RF Rx Instructions: BOTH EYES hydrocodone-acetaminophen 5-325 mg tablet 1 tab PO Q6H PRN (Reason: pain) Qty: 10 0RF hydrocodone-acetaminophen 5-325 mg tablet 1 tab PO Q4H PRN (Reason: pain) Qty: 20 0RF prednisone 10 mg tablet 10 mg PO DAILY 10 Days Qty: 20 0RF Rx Instructions: Take 5 tabs on day 1-2, 4 tabs on day 3, 3 tabs on day 4, 2 tabs on day 5, and 1 tab on day 6 Valtrex 1 gram tablet 1,000 mg PO TID 7 Days Qty: 21 0RF Discharge Orders: Discharge ED (Routine); Ordered 11/18/21 Ordered By: Parmjit Ovalle Referrals: Mahamed Cuba MD [Primary Care Provider] - Discharge Diet: Usual diet Discharge Activity: Increase activity as tolerated Patient Instructions: Opioid Safety Activity Restrictions/Additional Instructions: Tylenol or ibuprofen for pain as well as ice for if any worsening or persistent problems follow-up with primary care doctor or return to the emergency room. Coding Level of Care Code ED [place] Actor for Jeremiasg Fwd Exam Detailed
[2021-11-18 09:01] VITALS: BP 160/74; PULSE 66; RESP 20; O2SAT 100
--- NOTE | 2021-11-18 09:06 | XR_ITS ---
WS: [id number] Exam: XR hip RT 2-3V wo/w pel* [id number] Date/Time of Exam: 11/18/2021 9:25 AM Reason For Exam: fall pain A total hip replacement is in satisfactory position. No sign of loosening or fracture. Normal soft ti ssues. XR/XR hip RT 2-3V wo/w pel* [id number] IMPRESSION: 1. Intact right hip total prosthesis.
--- NOTE | 2021-11-18 09:06 | XR_ITS ---
WS: [id number] Exam: XR lumbar spine 2-3V* [id number] Date/Time of Exam: 11/18/2021 9:25 AM Reason For Exam: fall, back pain No acute fracture or dislocation. Degenerative disc changes and spondylosis at all levels. Osteopenia . Facet DJD at all levels. Bone hemangiomas involving several lower lumbar vertebra which represents an incidental finding. XR/XR lumbar spine 2-3V* [id number] IMPRESSION: 1. No fracture or malalignment. 2. Degenerative changes and osteopenia.
[2021-11-18 09:18] LABS: Basophils # 0.1 10^3/uL (0.0-0.1); Basophils % 0.9 %; Eosinophils # 0.2 10^3/uL (0.0-0.8); Eosinophils % 3.1 %; Hematocrit 41.7 % (37.0-47.0); Hemoglobin 14.1 g/dL (11.5-15.3); Lymphocytes # 1.5 10^3/uL (0.8-4.8); Lymphocytes % 23.4 %; Mean Corpuscular HGB Conc 33.8 g/dL (30.0-36.0); Mean Corpuscular Volume 91.6 fl (81-99); Mean Platelet Volume 8.9 fL (7.4-10.4); Monocytes # 0.8 10^3/uL (0.2-0.9); Neutrophils # 3.83 10^3/uL (1.8-7.7); Neutrophils % 59.4 %; Nucleated Red Blood Cells % 0 %; Platelet Count 194 10^3/cmm (130-400); Red Blood Count 4.55 10^6/uL (4.1-5.3); Red Cell Distribution Width 13.2 % (12.1-15.1); White Blood Count 6.5 10^3/uL (4.0-10.0)
[2021-11-18 09:25] LABS: Add Urine Microscopic? NO; Charge for UA Resulting for Rev
[2021-11-18 09:26] LABS: Bilirubin Urine Neg (Negative); Blood Urine Neg (Negative); Glucose Urine UA Norm (Normal); Ketones Urine Negative (Negative); Leukocyte Esterase Urine Negative (Negative); Nitrate Urine Negative (Negative); Protein Urine Neg (Negative); Sulfosalicylic Acid Urine Negative (Negative); Urine Appearance Clear (CLEAR); Urine Color Straw (Yellow); Urobilinogen Urine Norm (Negative); pH Urine 8 (5-7)
[2021-11-18 09:42] LABS: Alanine Aminotransferase 11 U/L (0-33); Albumin Level 4.3 g/dL (3.5-5.2); Alkaline Phosphatase 101 IU/L (35-105); Blood Urea Nitrogen 14 mg/dL (8-23); Calcium 9.8 mg/dL (8.5-10.5); Carbon Dioxide 24 mmol/L (22-29); Chloride 99 mmol/L (98-107); Globulin 2.8 g/dL (1.3-4.6); Glucose 87 mg/dL (65-115); Osmolality Calculated 282 mOsm/kg (285-295); Sodium 136 mmol/L (136-145); Total Bilirubin 0.4 mg/dL (0.15-1.2); Total Protein 7.1 g/dL (6.6-8.7)
[2021-11-18 09:46] LABS: Anion Gap 17.5 (5-19); Aspartate Amino Transferase 21 U/L (0-32); Potassium 4.5 mmol/L (3.5-5.1)
[2021-11-18 10:48] VITALS: BP 172/72; PULSE 59; RESP 18; O2SAT 98
[2021-11-18 11:16] VITALS: BP 172/72; PULSE 62; RESP 18; O2SAT 98
== END 2021-11-18 11:18 | disposition home or self-care (01) ==
PROVIDERS: Emergency Provider Family Medicine; PCP Internal Medicine
DX: M25.552 Pain in left hip (principal); M25.551 Pain in right hip; M54.31 Sciatica, right side; Z85.3 Personal history of malignant neoplasm of breast; E78.5 Hyperlipidemia, unspecified; Z86.73 Personal history of transient ischemic attack (TIA), and cerebral infarction without residual deficits; Z96.641 Presence of right artificial hip joint; W01.0XXA Fall on same level from slipping, tripping and stumbling without subsequent striking against object, initial encounter
CPT/HCPCS: 72100; 73502; 80053; 81003; 85025; 99283

== ENCOUNTER 2021-11-20 07:24 | Emergency (ER) | payer MEDICARE, SELFPAY ==
[2021-11-20 07:40] VITALS: BP 165/83; PULSE 66; RESP 14; TEMP 36.5; O2SAT 100; BMI 21.4
--- NOTE | 2021-11-20 07:57 | W.ED.BACK ---
HPI - Back Pain/Injury General: Chief Complaint: Back Pain/Injury Stated Complaint: FALL PAIN IN BACK AND HIPS Time Seen by Provider: 11/20/21 07:51 Source: patient and family Mode of arrival: wheelchair Limitations: no limitations History of Present Illness: HPI Narrative: Patient is a nice 76-year-old female who presents to ED today along with family for concerns of right lower back pain and right hip pain. Patient was seen at our facility 2 days ago for same symptoms. She states since that visit she has been using a heating pad on her back and has now developed a rash that she feels is secondary to the heating pad. She describes pain as intense and burning. Patient is still able to ambulate. She is not complaining of numbness/tingling or loss of sensation to her lower extremities. She is stooling and urinating normally. MD elicited complaint: back pain Onset (ago): day(s) Timing: constant Severity: severe Location: right lower back Associated symptoms: Reports nausea; Deny abdominal pain, chills, difficulty walking, dysuria, fatigue, fever(s), hematuria or vomiting Work related injury: No Review of Systems Const: Denies: fever(s), chills, body aches, fatigue or malaise Card: Denies: chest pain Resp: Denies: dyspnea GI: Reports: nausea; Denies: abdominal pain, vomiting or diarrhea : Denies: flank pain, dysuria or hematuria Musc: Reports: back pain and joint pain (L hip); Denies: neck pain, extremity pain, extremity swelling, joint redness, joint warmth or limited range of motion Skin/Breast: Reports: rash Neuro: Denies: headache(s), numbness in extremities, weakness in extremities, sensory changes, difficulty walking or dizziness [facility] ED PFSH: Medical History Bilateral carotid artery stenosis without cerebral infarction Cervical disc disorder with myelopathy of mid-cervical region Chronic bronchitis Closed head injury GERD (gastroesophageal reflux disease) HX: breast cancer ER [place] negative, 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 status post radiation therapy and hormonal therapy, currently on Femara Hyperlipidemia 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 disc disorder 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 region 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 Lumbar stenosis without neurogenic claudication Pain management contract signed Spondylolisthesis of cervical region 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 (cerebrum) Hx of stroke in February 07, 2019 Surgical History H/O total hip arthroplasty Right History of cholecystectomy History of hysterectomy / BSO / appendectomy History of left breast biopsy Port-A-Cath in place 04/16/20 Status post carotid endarterectomy Social History Alcohol intake: never Lives independently: Yes Household members: spouse Marital status: Current occupational status: retired History of recent travel: No Physical Exam Const: COMMON NORMALS: no acute distress, average body habitus, patient oriented x3, no limitations, alert and well nourished GENERAL APPEARANCE: cooperative ORIENTATION/CONSCIOUSNESS: Yes awake, Yes oriented to person, Yes oriented to place and Yes oriented to time Resp: COMMON NORMALS: normal respiratory effort and clear to auscultation bilaterally AUSCULTATION: clear to auscultation bilaterally Cardio: COMMON NORMALS: regular rate and regular rhythm RATE: regular rate RHYTHM: regular rhythm Back/Pelvis: OTHER: pt has an erythematous patchy blistering rash to R lower back radiating around into her abdomen/pelvis/groin consistent with herpes zoster Neuro: COMMON NORMALS: patient oriented x3, moves all extremities, no focal motor deficits and no sensory deficits noted SENSORIUM/ORIENTATION: Yes alert, Yes oriented to person, Yes oriented to place and Yes oriented to time Skin: SKIN IMAGES (FEMALE): 1. 2. erythematous blistering rash following dermatomal pattern consistent with shingles Course Vital Signs: Vital signs: Vital Signs Temperature 97.7 F 11/20/21 07:40 Pulse Rate 66 11/20/21 07:40 Respiratory Rate 14 11/20/21 07:40 Blood Pressure 165/83 11/20/21 07:40 Pulse Oximetry 100 11/20/21 07:40 MDM - Back Pain/Injury MDM Narrative: Medical decision making narrative: Patient's rash is consistent with herpes zoster. She will be placed on antivirals, steroids, pain medications. Recommend close follow-up with her PCP Dr. Cuba early next week for reevaluation. Strict return to ED precautions verbally given to patient and family member accompanying her. Discharge Plan Discharge Patient Disposition: Home Clinical Impression: Shingles rash Qualifiers: Herpes zoster complications: without complications Qualified Code(s): B02.9 - Zoster without complications Condition: Stable Prescriptions: New hydrocodone-acetaminophen 5-325 mg tablet 1 tab PO Q4H PRN (Reason: pain) Qty: 20 RF: 0 prednisone 10 mg tablet 10 mg PO DAILY 10 Days Qty: 20 RF: 0 Valtrex 1 gram tablet 1,000 mg PO TID 7 Days Qty: 21 RF: 0 No Action acetaminophen [Tylenol Extra Strength] 500 mg tablet 500 mg PO Q6H PRN (Reason: pain) RF: 0 ciprofloxacin HCl 500 mg tablet 500 mg PO BID 5 Days Qty: 10 RF: 0 ipratropium bromide 21 mcg (0.03 %) spray,non-aerosol See Rx Instructions .ROUTE .COMPLEX Qty: 30 RF: 0 multivitamin Tablet 1 tab PO DAILY RF: 0 pantoprazole 40 mg tablet,delayed release (DR/EC) 40 mg PO BID RF: 0 latanoprost 0.005 % drops 1 drp ophthalmic (eye) BEDTIME RF: 0 timolol maleate 0.5 % drops 1 drp ophthalmic (eye) BID RF: 0 Alphagan P 0.1 % drops 1 drp ophthalmic (eye) BID RF: 0 hydrocodone-acetaminophen 5-325 mg tablet 1 tab PO Q6H PRN (Reason: pain) Qty: 10 RF: 0 Discharge Orders: Discharge ED (Routine); Ordered 11/20/21 Ordered By: Corrine Mcnulty Referrals: Mahamed Cuba MD [Primary Care Provider] - Patient Instructions: Shingles (ED), Opioid Safety Coding Level of Care Code ED Software 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
--- NOTE | 2021-11-20 08:20 | PC.NURSE ---
REVIEWED DISCHARGE WITH PATIENT AND FAMILY MEMBER, BOTH VERBALIZE UNDERSTANDING OF NEED FOR FOLLOW UP, TO FILL AND TAKE MEDICATIONS AND ALL OTHER WRITTEN INSTRUCTIONS, PATIENT TAKEN TO LOBBY VIA WHEELCHAIR
== END 2021-11-20 08:22 | disposition home or self-care (01) ==
PROVIDERS: Emergency Provider Physician Assistant; PCP Internal Medicine
DX: B02.9 Zoster without complications (principal); Z85.3 Personal history of malignant neoplasm of breast; E78.5 Hyperlipidemia, unspecified; Z86.73 Personal history of transient ischemic attack (TIA), and cerebral infarction without residual deficits
CPT/HCPCS: 99282

== ENCOUNTER → 2022-01-21 15:36 | Outpatient (BNVA) | payer MEDICARE, SELFPAY | PROVIDERS: PCP Internal Medicine; Referring Provider Internal Medicine; Visit Provider Specialist | DX: M16.12 Unilateral primary osteoarthritis, left hip (principal); M25.552 Pain in left hip | CPT/HCPCS: 73502 ==

== ENCOUNTER → 2022-01-22 11:05 | Outpatient (BNVA) | payer MEDICARE, SELFPAY | PROVIDERS: PCP Internal Medicine; Visit Provider Nurse Practitioner Family | DX: Z01.818 Encounter for other preprocedural examination (principal); Z20.822 Contact with and (suspected) exposure to COVID-19 | CPT/HCPCS: 87635 ==

== ENCOUNTER → 2022-02-04 10:51 | Day surgery (SDC) | payer MEDICARE, SELFPAY | PROVIDERS: PCP Internal Medicine; Visit Provider Specialist | DX: Z01.818 Encounter for other preprocedural examination (principal) | CPT/HCPCS: 93005 ==

== ENCOUNTER 2022-02-10 16:01 | Observation (INO) | payer MEDICARE, SELFPAY ==
--- NOTE | 2022-02-04 10:30 | ANES.PREANE2 ---
Pre-Anesthetic Assessment Height/Weight: Height 1.57 m Preop Diagnosis: Port in place Operation Date: 02/10/22 10:40 Proposed Procedures p Left Total Hip Arthroplasty 11924/m16.9(Left) - Deana Harris MD Familial anesthetic complications: none Social No alcohol and No tobacco Exam alert, oriented x 3, clear to auscultation bilaterally and regular rate & rhythm Airway Mallampati: Class II Dentition: full Pulmonary Chronic Obstructive Pulmonary Disease (chronic bronchitis and nasal drip) CV/HEM orthostatic hypotesnion GI Gastroesophageal Reflux Disease hx gastric lymphoma Anesthetic Plan ASA status: 3 Anesthesia: Regional (specify below) (spinal + adductor) Risk of > 500 ml blood loss (7ml/kg in children): Yes, adequate IV access and fluids planned Medications/Allergies Home Medications Medication Instructions Recorded Confirmed Last Taken Type acetaminophen 500 mg tablet 500 mg PO Q6H PRN 04/24/21 12/29/21 08/31/21 History (Tylenol Extra Strength) brimonidine 0.1 % eye drops 1 drp OPHTHALMIC (EYE) BID 09/03/21 12/29/21 Unknown History (Alphagan P) latanoprost 0.005 % eye drops 1 drp OPHTHALMIC (EYE) BEDTIME 09/03/21 12/29/21 Unknown History multivitamin 1 tab PO DAILY 09/03/21 12/29/21 Unknown History timolol maleate 0.5 % eye drops 1 drp OPHTHALMIC (EYE) BID 09/03/21 12/29/21 09/28/21 History ipratropium bromide 21 mcg (0.03 See Rx Instructions .ROUTE 12/25/21 12/29/21 Unknown Rx %) nasal spray .COMPLEX #30 ml hydrocodone 5 mg-acetaminophen 325 1 tab PO Q4H PRN 14 Days #30 tab 12/29/21 12/29/21 Unknown Rx mg tablet hydrocodone 5 mg-acetaminophen 325 1 tab PO Q6H PRN 14 Days #60 tab 01/05/22 Unknown Rx mg tablet ciprofloxacin HCl 500 mg tablet 500 mg PO BID 5 Days #10 tab 01/22/22 Unknown Rx pantoprazole 40 mg tablet,delayed See Rx Instructions .ROUTE 01/26/22 Unknown Rx release .COMPLEX #180 tablet simvastatin 20 mg tablet 20 mg PO DAILY #90 tab 02/02/22 Unknown Rx Allergies Allergy/AdvReac Type Severity Reaction Status Date / Time adhesive tape Allergy ALGY-Rash Verified 01/21/22 15:28 Influenza Virus Vaccines Allergy ALGY-Rash Verified 01/21/22 15:28 [facility] Anesthesia Medical History Bilateral carotid artery stenosis without cerebral infarction Cervical disc disorder with myelopathy of mid-cervical region Chronic bronchitis Closed head injury GERD (gastroesophageal reflux disease) HX: breast cancer ER [place] negative, 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 status post radiation therapy and hormonal therapy, currently on Femara Hyperlipidemia 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 disc disorder 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 region 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 Lumbar stenosis without neurogenic claudication Pain management contract signed Spondylolisthesis of cervical region 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 (cerebrum) Hx of stroke in February 07, 2019 Surgical History H/O total hip arthroplasty Right History of cholecystectomy History of hysterectomy / BSO / appendectomy History of left breast biopsy Port-A-Cath in place 04/16/20 Status post carotid endarterectomy Social History Smoking and tobacco status: never smoked Alcohol intake: never Lives independently: Yes Household members: spouse Marital status: Current occupational status: retired History of recent travel: No Data Anesthesia Cardiac Studies: Echocardiogram Ultrasound 07/15/20
--- NOTE | 2022-02-04 10:51 | ECG_ITS ---
[facility] Test Date: 2022-02-04 Pat Name: Jenna Nye Department: Room: Gender: Female Rn Progressive Care Unit: : 1945 Requested By: Cecilia Ruelas Order Number: [id number] Vicki MD: Mirtha Page M.D. Measurements Intervals [place] Rate: 55 P: 61 NC: 213 QRS: 16 QRSD: 84 T: -20 QT: 395 QTc: 380 Interpretive Statements SINUS BRADYCARDIA WITH FIRST DEGREE AV BLOCK Compared to ECG 09/03/2021 08:40:39 First degree AV block now present Sinus rhythm no longer present T-wave abnormality no longer present Possible ischemia no longer present Electronically Signed On 02-04-2022 18:30:38 CDT by Mirtha Page M.D. [id number]
[2022-02-04 11:20] VITALS: BMI 20.6
[2022-02-04 11:30] LABS: Basophils # 0.1 10^3/uL (0.0-0.1); Basophils % 1.2 %; Eosinophils # 0.2 10^3/uL (0.0-0.8); Hematocrit 39.6 % (37.0-47.0); Hemoglobin 13.3 g/dL (11.5-15.3); Lymphocytes % 33.6 %; Mean Corpuscular HGB Conc 33.6 g/dL (30.0-36.0); Mean Corpuscular Hemoglobin 31.5 pg (28.0-34.0); Mean Corpuscular Volume 93.8 fl (81-99); Mean Platelet Volume 9.2 fL (7.4-10.4); Monocytes # 0.6 10^3/uL (0.2-0.9); Monocytes % 10.3 %; Neutrophils # 3.07 10^3/uL (1.8-7.7); Neutrophils % 51.7 %; Nucleated Red Blood Cells % 0 %; Platelet Count 248 10^3/cmm (130-400); Red Blood Count 4.22 10^6/uL (4.1-5.3); White Blood Count 5.9 10^3/uL (4.0-10.0)
[2022-02-04 11:45] LABS: Alanine Aminotransferase 9 U/L (0-33); Albumin Level 4.4 g/dL (3.5-5.2); Alkaline Phosphatase 85 IU/L (35-105); Anion Gap 13.8 (5-19); Aspartate Amino Transferase 20 U/L (0-32); Blood Urea Nitrogen 14 mg/dL (8-23); Calcium 10.4 mg/dL (8.5-10.5); Carbon Dioxide 28 mmol/L (22-29); Chloride 102 mmol/L (98-107); Globulin 3.2 g/dL (1.3-4.6); Glucose 95 mg/dL (65-115); Osmolality Calculated 290 mOsm/kg (285-295); Potassium 3.8 mmol/L (3.5-5.1); Sodium 140 mmol/L (136-145); Total Bilirubin 0.6 mg/dL (0.15-1.2); Total Protein 7.6 g/dL (6.6-8.7)
[2022-02-04 11:48] LABS: Bilirubin Urine Neg (Negative); Blood Urine Neg (Negative); Glucose Urine UA Norm (Normal); Ketones Urine Negative (Negative); Nitrate Urine Negative (Negative); Protein Urine Neg (Negative); Urine Appearance Clear (CLEAR); Urine Color Yellow (Yellow); Urobilinogen Urine Neg (Negative); pH Urine 5 (5-7)
[2022-02-04 11:49] LABS: Add Urine Culture? No; Add Urine Microscopic? YES; Bacteria Urine TRACE /hpf; Leukocyte Esterase Urine Trace (Negative); RBC Urine 0-4 /hpf (0-2)
[2022-02-10] VITALS (19 sets, daily range): BP systolic 72–200; BP diastolic 40–86; PULSE 54–92; RESP 13–24; TEMP 36.2–36.9; O2SAT 97–100
[2022-02-10] MEDS: acetaminophen 1,000 MG/100 ML PIGGYBACK 400 MG IV ×2 (09:19→18:03)
[2022-02-10] MEDS: CELEcoxib 200 mg Capsule 400 MG PO (09:19)
[2022-02-10] MEDS: sodium chloride 0.9% 1,000 ML 30 ML IV (09:20)
--- NOTE | 2022-02-10 10:20 | P.ANESUD_ITS ---
Pre-Anesthetic Update Pre-Anesthetic Assessment: Date of Surgery/Procedure: 02/10/22 Preop Arcelia gnosis: Severe osteoarthritis left hip Proposed Procedure: Operation Date: 02/10/22 10:40 Proposed Procedures p Left Total Hip Arthroplasty 51887/m16.9(Left) - Deana Harris MD Any changes to Pre-Anesthetic Assessment?: No Last Intake: Intake Last Liquid Date 02/09/22 Last Liquid Time 17:00 Last Solid Date 02/09/22 Last Solid Time 17:00 Vitals: Temperature 98 F 02/10/22 09:04 Temperature Source Temporal Artery S can 02/10/22 09:04 Pulse Rate 69 02/10/22 09:04 Pulse Rhythm 02/10/22 09:04 Pulse Strength 3+ Normal 02/10/22 09:04 Respiratory Rate 18 02/10/22 09:04 Blood Pressure 200/82 02/10/22 09:04 Blood Pressure Yue n 121 02/10/22 09:04 Pulse Oximetry 98 02/10/22 09:04 Oxygen Delivery Me thod 02/10/22 09:04 Exam: Pre-Anes Outpt Exam: alert, oriented x 3, clear to auscultation bi laterally and regular rate & rhythm Cardiac Studies: Echocardiogram Ultrasound 07/15/20
--- NOTE | 2022-02-10 10:27 | W.PM.OPSUD ---
Surgery/Procedure H&P Update DATE OF PROCEDURE: February 10, 2022 DATE H&P PERFORMED: 01/21/22 H&P UPDATE INFORMATION: I have reviewed H&P completed within last 30 days, I have examined patient prior to procedure, No changes to prior documentation and H&P is in [facility] EMR on date indicated PREOP DIAGNOSIS: Severe osteoarthritis left hip PLANNED PROCEDURE: Operation Date: 02/10/22 10:40 Proposed Procedures p Left Total Hip Arthroplasty 61616/m16.9(Left) - Deana Harris MD Related Problem List Diagnoses (1) Primary osteoarthritis of left hip:
[2022-02-10] MEDS: vancomycin 1,000 MG SDV 1000 MG XX (15:03)
[2022-02-10] MEDS: ceFAZolin 1,000 mg SDV 1000 MG IRRIGATION (15:03)
--- NOTE | 2022-02-10 16:23 | XRR_ITS ---
PROCEDURE INFORMATION: Exam: XR Pelvis Exam date and time: 02/10/2022 4:30 PM Age: 76 years old Clinical indication: Device placement; Other: Lt alfreda; Prior surgery; Surgery date: Post-operative (0-2 days); Additional info: S/P lt alfreda TECHNIQUE: Imaging protocol: XR pelvis. Views: 1 or 2 view. COMPARISON: CR XR hip LT 2-3V wo/w pel* [id number] 01/21/2022 3:47 PM FINDINGS: Bones/joints: Bilateral hip arthroplasty changes seen in place with postsurgical soft tissue changes over the left hip. Soft tissues: See Bones/joints finding. XR/XR pelvis 1-2V* [id number] IMPRESSION: Bilateral hip arthroplasty changes seen in place with postsurgical soft tissue changes over the left hip.
--- NOTE | 2022-02-10 16:24 | P.OP_ITS ---
Operative Report Date of procedure: February 10, 2022 Pre-op diagnosis: Severe osteoarthritis left hip Post-op diagnosis: Severe osteoarthritis left hip Post-op findings: Significant degenerative osteoarthritic change to the left hip. Procedure done: Left total hip arthroplasty Implants: The Surfside total hip system with the following implants: A 46 mm by C Trident II solid back acetabular shell, an MDM cementless liner 36 mm inner diameter by C alpha code and Accolade II size 4 with 127 degree neck angle hip stem with a 22.2 mm outer diameter +0 mm neck offset femoral head and a moravian X3 insert size 22.2 mm inner diameter by 36C Pathology: Femoral head, disposed of Surgeon: Deana Harris Pediatric Clinical Nurse Specialist[facility] Anesthesia: MAC (With spinal, ASA 3) Estimated blood loss (mL): 200 IV fluids (mL): 1,500 Urine output (mL): 300 Complications: None Findings: Severe degenerative osteoarthritic changes of the femoral head and acetabulum. Osteophyte formation. The hip was stable following hip replacement arthroplasty with 80 degrees of internal rotation, 20 degrees of adduction, and 90 degrees of flexion. Leg lengths appeared essentially equal. Hip was also stable to toe hang. Condition: stable Disposition: PACU (Then to floor for postoperative rehabilitation and pain management.) Brief History: This 76-year-old woman presented to my office complaining of severe left hip pain. She previously undergone right total hip arthroplasty in approximately 2016 with me. She presented with limitations in her activities of daily living. She wished to proceed with left total hip arthroplasty. Discussion was undertaken with the patient regarding risks and benefits. She understood and wished to proceed. Procedure: Patient was brought to the operating theater.? She was transferred to the operating room table and subsequently administered a spinal anesthesia with MAC, ASA 3.? Following administration of adequate anesthesia, the patient was placed in full lateral position and held in position with a pegboard.? The patient's left lower extremity was then prepped and draped in usual fashion utilizing DuraPrep.? It was draped free.? Following prepping and draping, a surgical pause was performed. At the time of surgical pause, we identified the site and side of surgery.? We also identified the patient and preoperative surgical markings.? Confirmation was made of equipment availability.? Additionally, the patient's preoperative IV antibiotic, Ancef 2 g, was confirmed as being given in a timely fashion and being the appropriate antibiotic.? She received TXA 1 g preoperatively as well. Following the surgical pause, an incision was made centering over the patient's greater trochanter continuing proximally and distally as necessary to allow access to the hip joint.? Dissection continued through skin and soft tissues using a scalpel, and hemostasis was obtained using electrocautery. The tensor fascia yuri was identified and incised longitudinally.? Sciatic nerve was identified and protected throughout the surgical procedure.? A Charnley U retractor was placed after the tensor fascia yuri had been incised longitudinally, and the sciatic nerve had been identified.? The piriformis muscle was identified and tagged. Piriformis muscle along with the remaining short external rotators were then incised from the posterior aspect of the hip joint. These were retracted posteriorly. ? The capsule was entered in a T-type fashion with the edges being tagged. The hip was then dislocated. Following hip dislocation, a femoral neck osteotomy was accomplished in the appropriate position. We then evaluated the acetabulum. The femur was retracted anteriorly.? Soft tissues were retracted and the labrum was removed.? We then began reaming.? We deepened the acetabulum utilizing a smaller reamer.? Evaluation of the acetabulum was accomplished, and we were able to ream to 45 mm to allow for a size 46 mm acetabular shell. The acetabular component was impacted into position. It was noted that the acetabulum matched the bony anatomy.? The cup was noted to seat nicely and had good fixation upon impact.? The MDM cementless liner was impacted into position and care was taken to assure that it completely seated.? Also, we confirmed that the acetabular insert was completely seated prior to addressing the femur. Attention was directed to the proximal femur.? The proximal femur was lifted out of the wound.? A canal finder was passed, and we then used the reamer to lateralize.? We then began broaching. ?We broached sequentially and had excellent fit and fill with the size 4 Accolade II 127 degree femoral component.? A trial reduction was accomplished with a +0 mm offset femoral head once the size 4 broach was placed in position.? The patient was stable with this construct, and it was not felt that we had increased her leg length.? With this in place, we had the above stabilities, and at that time, we felt that we had restored leg lengths.? We also felt that we had excellent stability noted above. Therefore, trial components were removed after the hip was dislocated.? The size 4 Accolade II 127 degree neck angle hip stem was impacted into position without difficulty and onto this was placed a +0 mm offset by 22.2 mm outer diameter femoral head inside of the MDM size 36C insert with a 22.2 mm inner diameter.? With this construct, we had the above-noted stability.? The stem was noted to seat nicely prior to placement of the femoral head.? The wound was copiously irrigated with Betadine.? At this time, with all components in appropriate position, the hip was reduced.? Following reduction of the prosthesis once again, we confirmed the stability of the hip.? Leg lengths were also felt to be satisfactory. Being satisfied with the prosthesis, attention was directed to closure.? Closure was accomplished with 0 Vicryl in the capsular tissues.? Piriformis was reattached with 0 Vicryl as well.? Tensor fascia yuri was closed with 0 Vicryl in an interrupted fashion.? The subcutaneous tissues were closed with 2-0 Monocryl.? Vancomycin powder and a Gelfoam thrombin mixture was placed into the wound as well.? The skin was closed with 3-0 Monocryl followed by Dermabond, Prineo, and OpSite.? The patient was placed in an abduction pillow.? She was returned the Recovery Room in a satisfactory condition and will be discharged to the floor for postoperative rehabilitation and pain management.? There were no complications. Related Problem List Diagnoses (1) Primary osteoarthritis of left hip:
--- NOTE | 2022-02-10 16:45 | SUR.PHASEI ---
1622 PT TO PACU 5 PT AWAKE ALERT VERBALLY DENIES PAIN AND NAUSEA,PT SMILING, ORIENTED TO NAME ONLY, PT FOLLOWS COMMANDS PLEASANTLY WITH NO COMPLAINT, LT HIP WITH LONG DRESSING D/I FIRST ICE TO SITE, PT HAS ABD PILLOW IN PLACE AND BILAT SCDS ON , PT LT FOOT PINK WARM WITH CAP REFILL LESS THAN 3 SECONDS STRONG PULSES MARKED X 2 TO LT FOOT, PT HAD A SPINAL ANESTHETIC WITH MAC. PT STATES NORMAL SENSATION TO T-11 BUT IS UNABLE TO MOVE THIGHS OR TOES, PT HOB UP TO 20 DEGREES. 1632 X RAY HERE, PT TOLERATED WELL DENIES PAIN HOB AT 30 DEGREES, PT REMAINS PLEASANTY CONFUSED TO ALL BUT NAME. PT REORIENTED REPEATEDLY, DR ALAN AT BEDSIDE TALKED WITH PT AND LOOKED AT X RAY, OUT TO UPDATE FAMILY. PT MONIITOR SR WITH RARE UNIFOCAL PVC. OCC PAC NOTED.
--- NOTE | 2022-02-10 16:57 | SUR.PHASEI ---
PT HAS HUYNH CATHETER TO DEPENDANT DRAINAGE WITH CLEAR URINE NOTED STATLOCK TO RT THIGH.
--- NOTE | 2022-02-10 17:12 | ANE.PACU2 ---
Inpatient post-anesthesia follow up: Airway intact: Yes Vital signs: Temperature 98.4 F Pulse Rate 83 Respiratory Rate 17 Blood Pressure 185/78 Pulse Oximetry 100 Oxygen Delivery Me thod Room Air Oxygen Flow Rate 8 Fraction of Inspir ed Oxygen Hydration adequate: Yes Nausea and vomiting: No Pain level: 1 Mental status: Baseline
[2022-02-10] MEDS: chlorhexidine gluconate 0.12% Btl 473 mL 30 ML MUCOUS MEM ×2 (17:58→21:06)
[2022-02-10] MEDS: calcium carbonate 500 mg Chew Tablet 1000 MG PO (18:03)
[2022-02-10] MEDS: iron polysaccharide complex 150 mg Capsule PO (18:04)
[2022-02-10] MEDS: sulfamethoxazole-trimeth DS 160-800 mg Tablet 1 TAB PO (18:04)
[2022-02-10] MEDS: sennosides-docusate Tablet 2 TAB PO (18:04)
[2022-02-10] MEDS: pantoprazole DR 40 mg Tablet PO (18:04)
[2022-02-10] MEDS: oxyCODONE 5 mg IR Tab/Cap PO (20:42)
[2022-02-10] MEDS: CELEcoxib 200 mg Capsule PO (20:42)
[2022-02-10] MEDS: timolol 0.5% Op Soln 5 mL Btl 1 DROP EYE-BOTH (21:06)
--- NOTE | 2022-02-10 22:42 | PC.NURSE ---
pt broke out in cold sweats, bp low 78/40, 78/44, 72/40, automatic and manual cuff used, pt stated this happens to her sometimes because of her nasal passage, call placed to Dr. Butler, field control inspector for Dr. Harris, nurse instructed by Dr. Butler to have hopitalist look at patient, call placed to Dr. Howard, order for CBC stat recieved. patient having nausea
[2022-02-10 22:53] LABS: Basophils # 0.1 10^3/uL (0.0-0.1); Basophils % 0.7 %; Eosinophils # 0.1 10^3/uL (0.0-0.8); Eosinophils % 1.1 %; Hematocrit 36.2 % (37.0-47.0); Hemoglobin 12.3 g/dL (11.5-15.3); Lymphocytes # 1.7 10^3/uL (0.8-4.8); Mean Corpuscular Hemoglobin 32.4 pg (28.0-34.0); Mean Corpuscular Volume 95.3 fl (81-99); Mean Platelet Volume 8.9 fL (7.4-10.4); Monocytes # 1.2 10^3/uL (0.2-0.9); Neutrophils # 6.81 10^3/uL (1.8-7.7); Nucleated Red Blood Cells % 0 %; Platelet Count 224 10^3/cmm (130-400); Red Cell Distribution Width 14.1 % (12.1-15.1); White Blood Count 9.9 10^3/uL (4.0-10.0)
--- NOTE | 2022-02-10 23:01 | ECG_ITS ---
[facility] Test Date: 2022-02-10 Pat Name: Jenna Nye Department: Room: 271 Gender: Female Equipment Analyst: : 1945 Requested By: Todd Howard Order Number: [id number] Reading MD: Gustabo Orta M.D. Measurements Intervals [place] Rate: 53 P: 57 GA: 193 QRS: 18 QRSD: 84 T: -23 QT: 440 QTc: 414 Interpretive Statements SINUS BRADYCARDIA WITH OCCASIONAL ECTOPIC PREMATURE COMPLEXES WARNING: DATA QUALITY MAY AFFECT INTERPRETATION Compared to ECG 02/04/2022 10:46:58 First degree AV block no longer present Electronically Signed On 02-11-2022 23:16:11 CDT by Gustabo Orta M.D. [id number]
--- NOTE | 2022-02-10 23:02 | XRR_ITS ---
PROCEDURE INFORMATION: Exam: XR Chest Exam date and time: 02/10/2022 11:08 PM Age: 76 years old Clinical indication: Cough; Prior surgery; Surgery type: Gb TECHNIQUE: Imaging protocol: XR of the chest. Views: 1 view. COMPARISON: CR XR chest 1V portable [id number] 09/03/2021 7:54 AM FINDINGS: Lungs: Unremarkable. No consolidation. Pleural spaces: Unremarkable. No pleural effusion. No pneumothorax. Heart/Mediastinum: Unremarkable. No cardiomegaly. Bones/joints: Unremarkable. XR/XR chest 1V portable [id number] IMPRESSION: No acute findings.
--- NOTE | 2022-02-10 23:03 | PM.CONSULT ---
Providers/Reason For Consult Consulting Physician/Specialty*: Doctor Howard, [facility] medicine Reason for Consult*: Hypotension Attending Physician: Deana Harris MD Primary Care Provider: Mahamed Cuba MD History of Present Illness History of Present Illness Patient is a 76-year-old female who was admitted on February 10, 2022 for severe left hip osteoarthritis for which she underwent left total hip arthroplasty with orthopedic surgery. At the present time she claims to have a 10 out of 10 left hip pain although her outward appearance does not come close to rating this subjective rating of pain. She complains of paresthesia of her left foot. Postoperatively, she admits to nausea, cough however upon further questioning the cough is chronic and nonproductive, dysuria for which she states she is currently being treated, lightheadedness, dizziness, diaphoresis. She denies fever, rigors, vomiting, wheeze, abdominal pain, diarrhea, myalgia, chest pain, dyspnea, palpitations, sense of rapid heartbeat, sensation knee regular heartbeat. She denies bowel movements postoperatively. She indicates that she has not yet ambulated postoperatively. The request for the consult was made because the patient had a singular hypotensive episode. She present for further evaluation Review of Systems General: Reports: 10 or more systems reviewed and unremarkable except in HPI and below Medications/Allergies Home Medications Medication Instructions Recorded Confirmed Last Taken Type acetaminophen 500 mg tablet 500 mg PO Q6H PRN 04/24/21 02/04/22 08/31/21 History (Tylenol Extra Strength) brimonidine 0.1 % eye drops 1 drp OPHTHALMIC (EYE) BID 09/03/21 02/10/22 02/10/22 History (Alphagan P) multivitamin 1 tab PO DAILY 09/03/21 02/10/22 02/09/22 History timolol maleate 0.5 % eye drops 1 drp OPHTHALMIC (EYE) BID 09/03/21 02/10/22 02/10/22 History simvastatin 20 mg tablet 20 mg PO DAILY #90 tab 02/02/22 02/10/22 02/09/22 Rx calcium carbonate-vitamin D3 600 1 tab PO DAILY 02/04/22 02/10/22 02/09/22 History mg-125 unit tablet carboxymethylcellulose sodium 0.5 1 drp OPHTHALMIC (EYE) BEDTIME 02/04/22 02/10/22 02/09/22 History % eye drops (Refresh Tears) ipratropium bromide 21 mcg (0.03 2 spray INTRANASAL TID PRN 02/04/22 02/10/22 02/09/22 History %) nasal spray pantoprazole 40 mg tablet,delayed 40 mg PO BID 02/04/22 02/10/22 02/09/22 History release potassium 99 mg tablet 99 mg PO DAILY 02/04/22 02/04/22 Unknown History sulfamethoxazole 800 1 tab PO BID 7 Days #14 tab 02/04/22 02/10/22 02/09/22 Rx mg-trimethoprim 160 mg tablet (Bactrim DS) Allergies Allergy/AdvReac Type Severity Reaction Status Date / Time adhesive tape Allergy ALGY-Rash Verified 01/21/22 15:28 Influenza Virus Vaccines Allergy ALGY-Rash Verified 01/21/22 15:28 Current Medications Generic Name Dose Route Start Last Admin Trade Name Freq PRN Reason Stop Dose Admin Brimonidine Tartrate 1 drop 02/10/22 21:00 02/10/22 21:06 Brimonidine 0.1% Op Soln 5 Ml Btl EYE-BOTH 1 drop BID@0900,2100 DEIDRE Administration Calcium Carbonate 1,000 mg 02/10/22 18:00 02/10/22 18:03 Calcium Carbonate 500 Mg Chew Tablet PO 1,000 mg BID DEIDRE Administration Celecoxib 200 mg 02/10/22 21:00 02/10/22 20:42 Celecoxib 200 Mg Capsule PO 200 mg Q12H DEIDRE Administration Chlorhexidine Gluconate 30 ml 02/10/22 17:29 02/10/22 21:06 Chlorhexidine Gluconate 0.12% Btl 473 Ml MUCOUS MEM 30 ml QID DEIDRE Administration Acetaminophen 1,000 mg in 100 mls @ 400 mls/hr 02/10/22 17:30 02/10/22 18:28 Acetaminophen IV 02/11/22 09:44 Infused Q8H DEIDRE Infusion Cefazolin Sodium 2,000 mg/ 60 mls @ 100 mls/hr 02/10/22 22:00 02/10/22 22:15 Sodium Chloride IV 02/11/22 14:35 Infused Q8H DEIDRE Infusion Mupirocin 1 applic 02/10/22 18:00 02/10/22 18:27 Mupirocin Oint 22 Gm NASAL 02/15/22 17:59 Not Given BID [facility] Non-Formulary Medication 1 drop 02/10/22 21:00 02/10/22 21:07 Carboxymethylcellulose Sodium [Refresh Tears] EYEAFF Not Given BEDTIME [facility] Oxycodone HCl 5 mg 02/10/22 17:29 02/10/22 20:42 Oxycodone 5 Mg Ir Tab/Cap PO 5 mg Q4H PRN Administration MODERATE PAIN Pantoprazole Sodium 40 mg 02/10/22 18:00 02/10/22 18:[address] 40 Mg Tablet PO 40 mg BID DEIDRE Administration Polysaccharide Iron Complex 150 mg 02/10/22 18:00 02/10/22 18:04 Iron Polysaccharide Complex 150 Mg Capsule PO 150 mg BIDWM DEIDRE Administration Senna/Docusate Sodium 2 tab 02/10/22 18:00 02/10/22 18:04 Sennosides-Docusate Tablet PO 2 tab BID DEIDRE Administration Timolol Maleate 1 drop 02/10/22 21:00 02/10/22 21:06 Timolol 0.5% Op Soln 5 Ml Btl EYE-BOTH 1 drop BID@0900,2100 DEIDRE Administration Trimethoprim/Sulfamethoxazole 1 tab 02/10/22 18:00 02/10/22 18:04 Sulfamethoxazole-Trimeth Ds 160-800 Mg Tablet PO 1 tab BID DEIDRE Administration Protocol PFSH Acute PFSH: Medical History Bilateral carotid artery stenosis without cerebral infarction Cervical disc disorder with myelopathy of mid-cervical region Chronic bronchitis Closed head injury GERD (gastroesophageal reflux disease) HX: breast cancer ER VT negative, 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 status post radiation therapy and hormonal therapy, currently on Femara Hyperlipidemia 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 disc disorder 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 region halfway (current) use of opiate analgesic Lumbar stenosis without neurogenic claudication Pain management contract signed Spondylolisthesis of cervical region 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 (cerebrum) Hx of stroke in February 07, 2019 Surgical History H/O total hip arthroplasty Right History of cholecystectomy History of hysterectomy / BSO / appendectomy History of left breast biopsy Port-A-Cath in place 04/16/20 Status post carotid endarterectomy Social History Smoking and tobacco status: never smoked Alcohol intake: never Lives independently: Yes Household members: spouse Marital status: Current occupational status: retired History of recent travel: No Vitals/I&O/Wt Last Vital Signs Temp 97.3 F L 02/10/22 20:15 Pulse 83 02/10/22 20:15 Resp 16 02/10/22 20:42 BP 149/79 02/10/22 20:15 Pulse Ox 99 02/10/22 20:15 02/10/22 02/10/22 02/11/22 14:59 22:59 06:59 Intake Total 1170 / 1170 810 / 1980 Output Total 800 / 800 Balance 1170 / 1170 10 / 1180 Physical Exam Narrative: General: -Alert -No acute distress -No dyspnea -No tachypnea Head: -Atraumatic -Normocephalic Eyes: -Pupils equally round and reactive to light and accommodation -Extraocular muscles intact Neurological: -Cranial nerves II-XII intact Neck: -No jugular venous distention -No thyromegaly -No cervical lymphadenopathy Heart: -Regular rate -Regular rhythm -No murmurs -No gallops -No rubs Lungs: -No wheeze -No rhonchi -No rales ? Abdomen: -Normal bowel sounds in all four quadrants -No rebound -No guarding -No tenderness Extremities: -2/4 pulse in all four extremities -No clubbing -No cyanosis -No edema -No calf tenderness present bilaterally -Negative Margaux?s sign bilaterally Musculoskeletal: -5/5 bilateral upper extremity strength -5/5 bilateral lower extremity strength -Sensorium of bilateral upper extremities are equal and intact -Sensorium of bilateral lower extremities are equal and intact ? Additional Details / Additional Findings / Exceptions / Miscellaneous: Urinary Catheter Management: Gar: Cath Placed During This Visit: yes Reason for Continuing Indwelling Catheter: Perioperative Use in Selected Surgeries Urinary Catheter Date of Insertion: 02/10/22 Urinary Catheter Time of Insertion: 14:05 Data : 02/10/22 22:46 02/04/22 10:40 A&P Assessment and plan (1) Primary osteoarthritis of left hip: Status: Acute Plan Hypotension. Singular episode with no major associated symptoms. Urine fluid boluses. Check stat CBC, CMP, EKG, troponin, chest x-ray?portable, urinalysis. Monitor vital signs closely Status post left total hip arthroplasty February 10, 2022. Urine analgesia. Diet and activity to be advanced as per the primary team, orthopedic surgery. Celebrex 200 Mill grams by mouth every 12 hours plus Bactrim DS 1 tab by mouth twice a day Hepatic steatosis Diverticulosis Cheryl arthritis Glaucoma. Brimonidine 1 drop in both eyes twice a day plus timolol 1 drop in both eyes twice a day Herpetic neuralgia Peripheral vascular disease with bilateral internal carotid artery stenosis for which patient status post right carotid endarterectomy. Aspirin 325 Mill grams by mouth daily plus Lipitor 20 Mill grams by mouth daily at bedtime. Outpatient follow-up with vascular surgery upon discharge as directed Spinal stenosis Gastric lymphoma, status post surgical intervention, status post chemotherapy, status post radiation therapy. Outpatient follow-up with hematology/oncology upon discharge as directed Grade 1 diastolic dysfunction Diabetes. Will check fasting glucose every before meals and at bedtime and provide insulin sliding scale GERD/history of gastritis. Protonix 40 Mill grams by mouth twice a day Hyperlipidemia. Lipitor 20 Mill grams by mouth daily at bedtime History of breast cancer, status post lumpectomy-side unspecified, status post radiation therapy. Outpatient follow up with hematology/oncology upon discharge as directed Documented history of CVA which the patient denies. Aspirin 325 Mill cans by mouth daily plus Lipitor 20 mg by mouth daily at bedtime GI Proflex is. Senna: 2 tabs by mouth twice a day DVT Proflex is. Bilateral SCD plus aspirin 3 and 25 Mill grams by mouth daily Consult Attestations Medical Necessity Statement: The length of the patient's hospital stay is at the discretion of the primary team, orthopedic surgery Coding Level of Care Code Acute Blower Installer for Hardy Enriquez Diagnoses Primary osteoarthritis of left hip M16.12
[2022-02-10] MEDS: sodium chloride 0.9% 500 ML 999 ML IV (23:08)
[2022-02-10] MEDS: ondansetron 2 mg/ML SDV 2 mL 4 MG IVP (23:21)
[2022-02-10 23:45] LABS: Troponin(5th) Baseline 16 ng/L (0-10)
[2022-02-10 23:47] LABS: Alanine Aminotransferase 12 U/L (0-33); Albumin Level 3.5 g/dL (3.5-5.2); Alkaline Phosphatase 77 IU/L (35-105); Aspartate Amino Transferase 26 U/L (0-32); Blood Urea Nitrogen 15 mg/dL (8-23); Calcium 9.4 mg/dL (8.5-10.5); Carbon Dioxide 17 mmol/L (22-29); Chloride 107 mmol/L (98-107); Globulin 2.2 g/dL (1.3-4.6); Glucose 110 mg/dL (65-115); Osmolality Calculated 285 mOsm/kg (285-295); Sodium 137 mmol/L (136-145); Total Bilirubin 0.4 mg/dL (0.15-1.2); Total Protein 5.7 g/dL (6.6-8.7)
[2022-02-10 23:51] LABS: Bilirubin Urine 1+ (Negative); Blood Urine 2+ (Negative); Glucose Urine UA Norm (Normal); Ketones Urine 1+ (Negative); Leukocyte Esterase Urine Negative (Negative); Nitrate Urine Negative (Negative); Protein Urine Trace (Negative); RBC Urine 0-4 /hpf (0-2); Urine Appearance SL Hazy (CLEAR); Urine Color Yellow (Yellow); Urobilinogen Urine 1 mg/dL (Negative); pH Urine 5 (5-7)
[2022-02-10 23:52] LABS: Add Urine Culture? Yes; Bacteria Urine TRACE /hpf; Mucus Urine 1+ /hpf; Squamous Epithelial Cell Urine 0-4 /hpf (0-5); WBC Urine 15-25 /hpf (0-5)
[2022-02-11] VITALS (11 sets, daily range): BP systolic 101–176; BP diastolic 55–89; PULSE 56–82; RESP 16–20; TEMP 36.3–36.7; O2SAT 94–99
[2022-02-11] MEDS: oxyCODONE 5 mg IR Tab/Cap PO ×3 (00:34→10:01)
--- NOTE | 2022-02-11 01:20 | USCV_ITS ---
Transthoracic Echo Jenna Nye Age: 76 Gender: F : 1945 Exam Date: 02/11/2022 01:51 Ordering Phys: Todd Howard DO Technologist: Lazaro Beth Exam Location: [facility] [place] Indication: abnormal ekg BP: / HR: 74 Rhythm: Sinus Technical Quality: Adequate MEASUREMENTS (Male / Female) Normal Values 2D ECHO LV Diastolic Diameter PLAX 2.8 cm 4.2 - 5.9 / 3.9 - 5.3 cm LV Systolic Diameter PLAX 1.6 cm IVS Diastolic Thickness 1.3 cm 0.6 - 1.0 / 0.6 - 0.9 cm IVS Systolic Thickness 2.2 cm LVPW Diastolic Thickness 2.0 cm 0.6 - 1.0 / 0.6 - 0.9 cm LVPW Systolic Thickness 2.2 cm LVOT Diameter 1.7 cm LV Ejection Fraction 2D Teich 80.4 % LV Ejection Fraction MOD 2C 69.5 % LV Ejection Fraction 2C AL 68.7 % LA Diameter 2.9 cm LA Width 2.5 cm LA Height 4.4 cm RA Width 2.5 cm RA Height 3.1 cm Aorta at Sinotubular Diameter 2.2 cm M-MODE Aortic Annulus Diameter 2.1 cm LA Ao Ratio MM 1.7 MV E Point Septal Separation 0.8 cm DOPPLER AV Peak Velocity 92.0 cm/s LVOT Peak Velocity 60.0 cm/s AV Area Cont Eq vti 1.1 cm squared AV Area Cont Eq pk 1.4 cm squared MV Peak Velocity 94.0 cm/s MV Area PHT 2.4 cm squared Mitral E to A Ratio 0.6 MV E' Velocity 31.5 cm/s Mitral E to MV E' Ratio 8.0 Mitral E to LV E' Lateral Ratio 7.0 Mitral E to LV E' Septal Ratio 9.2 TR Peak Velocity 112.9 cm/s TR Peak Gradient 5.1 mmHg TR Mean Velocity 74.4 cm/s TR Mean Gradient 2.8 mmHg TR Velocity Time Integral 25.6 cm Right Atrial Pressure 10.0 mmHg Pulmonary Artery Systolic Pressu 15.1 mmHg PV Peak Velocity 76.0 cm/s RV Acceleration Time 0.1 s RV Ejection Time 0.3 s RV AcT/ET 0.3 FINDINGS Left Ventricle Normal left ventricular size and systolic function, EF 71 %. No regional wall motion abnormalities. Mild left ventricular hypertrophy. Grade I/IV diastolic dysfunction (abnormal relaxation filling pattern), normal to mildly elevated filling pressures. Right Ventricle The right ventricle is normal in size and function. Right Atrium The right atrium is normal in size. Left Atrium The left atrium is normal in size. Mitral Valve Thickened mitral valve. Moderate mitral annular calcification. Aortic Valve Thickened aortic valve. Trace aortic valve regurgitation. Tricuspid Valve Trace tricuspid valve regurgitation. Pulmonic Valve Pulmonic valve not well visualized. Pericardium No significant pericardial effusion Aorta Normal ascending aorta dimension. CONCLUSIONS Normal left ventricular size and systolic function, EF 71 %. No regional wall motion abnormalities. Mild left ventricular hypertrophy. Grade I/IV diastolic dysfunction (abnormal relaxation filling pattern), normal to mildly elevated filling pressures. Thickened mitral valve. Moderate mitral annular calcification. Thickened aortic valve. Trace aortic valve regurgitation. Trace tricuspid valve regurgitation. There is no pericardial effusion. Compared to the study from 07/15/2020, there may not be a significant change Dr Gustabo Orta MD [facility] (Electronically Signed) Final Date: 11 February 2022 11:09 S
--- NOTE | 2022-02-11 01:20 | NMCV_ITS ---
NM nuno perf SPECT r/s* [id number] Jenna Nye Age: 76 Gender: F : 1945 Exam Date: 02/11/2022 01:20 Ordering Phys: Todd Howard DO Technologist: OSIEL Ponce Exam Location: [facility] [place] Indications: Abn EKG STRESS TEST Please see separate stress test report in [facility] for full findings IMAGE PROTOCOL Rest/Stress 1 Lexiscan Day Radiopharmaceutical Dose (mCi) Administration Site Administered by Rest: Tc-99m 10.6 IV OSIEL Ponce Sestamibi Stress:Tc-99m 32.7 IV OSIEL Ponce Sestamibi Rest: 02/11/2022 60 Discovery 630 Stress: 02/11/2022 30 Discovery 630 0.4mg Lexiscan. Supine position only as patient was unable to lay prone. SPECT RESULTS Technical Quality: Good Raw Data Analysis: Normal Image Corrections: No attenuation or motion correction applied Summed Stress Score: 9 Summed Rest Score: 11 Summed Difference Score: 1 PERFUSION FINDINGS There is a large sized mostly fixed perfusion imaging defect in the apical, apical lateral and apical inferior wall. Small area of reversibilty in the apical lateral wall. This is consistent with large sized infarct with small area of isaak-infarct ischemia FUNCTIONAL RESULTS (calculated via Gated SPECT) Stress Image LV EF (%): 85 Stress EDV (mL):46 TID: 0.75 Stress ESV (mL):7 FUNCTIONAL FINDINGS: There is normal left ventricular systolic function. IMPRESSIONS 1. Abnormal myocardial perfusion imaging with large sized infarct with small area of isaak-infarct ischemia noted in the apical. apical lateral and apical inferior aaron 2. LV systolic function is normal Deny Alfonso MD (Electronically Signed) Final Date: 11 February 2022 10:17 S
[2022-02-11 02:04] LABS: Basophils % 0.5 %; Eosinophils # 0.1 10^3/uL (0.0-0.8); Eosinophils % 0.6 %; Hematocrit 38.6 % (37.0-47.0); Hemoglobin 12.5 g/dL (11.5-15.3); Lymphocytes # 1.1 10^3/uL (0.8-4.8); Lymphocytes % 12.6 %; Mean Corpuscular HGB Conc 32.4 g/dL (30.0-36.0); Mean Corpuscular Hemoglobin 32.4 pg (28.0-34.0); Mean Platelet Volume 9.1 fL (7.4-10.4); Monocytes # 0.8 10^3/uL (0.2-0.9); Monocytes % 9.8 %; Neutrophils % 76.1 %; Nucleated Red Blood Cells % 0 %; Platelet Count 189 10^3/cmm (130-400); Red Blood Count 3.86 10^6/uL (4.1-5.3); Red Cell Distribution Width 14.2 % (12.1-15.1); White Blood Count 8.5 10^3/uL (4.0-10.0)
[2022-02-11] MEDS: atorvastatin 40 mg Tablet 80 MG PO (02:19)
[2022-02-11] MEDS: nitroglycerin 1 gm/inch oint Pkt 0.5 INCH TOPICAL (02:20)
[2022-02-11] MEDS: enoxaparin 60 mg/0.6 mL Syringe 50 MG SUBCUT (02:20)
[2022-02-11 02:25] LABS: Troponin 5 2HR 14.43 ng/L (0-10)
[2022-02-11] MEDS: acetaminophen 1,000 MG/100 ML PIGGYBACK 400 MG IV ×2 (02:25→10:50)
[2022-02-11 02:32] LABS: Anion Gap 14.3 (5-19); Blood Urea Nitrogen 15 mg/dL (8-23); Calcium 9.5 mg/dL (8.5-10.5); Carbon Dioxide 21 mmol/L (22-29); Chloride 107 mmol/L (98-107); Glucose 151 mg/dL (65-115); Osmolality Calculated 290 mOsm/kg (285-295); Potassium 4.3 mmol/L (3.5-5.1); Sodium 138 mmol/L (136-145)
--- NOTE | 2022-02-11 02:34 | PC.RESP ---
EKG's prdered for 2300 is a duplicate order Dr Howard was asked about 0033, 0101 and 0501 EKG's- Dr Howard said to cancel all except the 0501 order- per his orders the 0033 and the 0101 were cancelled as well as the duplicate order at 230- one was done at this time. We will follow up with the 050 EKG order- RT
[2022-02-11 02:51] LABS: Troponin 5 2HR Delta -1.57 ABS# (0-10)
--- NOTE | 2022-02-11 05:01 | ECG_ITS ---
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 Measurements Intervals Seaview Rate: 63 P: 57 MD: 172 QRS: 15 QRSD: 83 T: -16 QT: 403 QTc: 414 Interpretive Statements SINUS RHYTHM Poor R wave progression Compared to ECG 02/10/2022 22:26:35 Sinus bradycardia no longer present Electronically Signed On 02-11-2022 23:30:58 CDT by Gustabo Orta M.D. [email or web address] [email or web address] [id number]
[2022-02-11 07:01] LABS: Troponin 5 6HR 12.76 ng/L (0-10)
[2022-02-11 07:04] LABS: Troponin 5 6HR Delta -3.24 ng/L (0-12)
--- NOTE | 2022-02-11 07:14 | ECG_ITS ---
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 Interpretive Statements NAME OF STUDY: LEXISCAN SESTAMIBI STRESS TEST INDICATION: [abnormal ekg, ] Procedure: At the baseline, the blood pressure was 145/71 mmHg with a heart rate of 62 bpm. The electrocardiogram showed normal sinus rhythm, normal axis with normal ST and T's. The Lexiscan was infused over a period of 20 seconds. A total of 0.4 mg of Lexiscan was infused. The stress phase was continued for a total of 5 minutes. Heart rate was at the end of stress phase was 87 bpm and a blood pressure of 115/63 mmHg. The EKG at the peak infusion revealed since normal sinus rhythm with no significant ST-T wave changes. Sestamibi was injected 20 seconds after the Lexiscan infusion. Blood pressure at the end of recovery phase was 113/64 mmHg with a heart rate of 68 bpm.PVCs were seen in the recovery phase Conclusion: 1. Normal EKG response to Lexiscan infusion 2. No Lexiscan induced chest pain or cardiac arrhythmia. 3. Normal blood pressure and heart rate response. 4. Sestamibi/sestamibi perfusion scan pending; see separate report. Electronically Signed On 03-15-2022 21:17:28 CDT by Deny Alfonso M.D. [id number]
[2022-02-11] MEDS: regadenoson 0.4 Mg/5 ml Syringe IVP (08:01)
[2022-02-11] MEDS: ondansetron 2 mg/ML SDV 2 mL 4 MG IVP (08:07)
[2022-02-11] MEDS: aminophylline 25 mg/mL SDV 10 mL IVP ×2 (08:11→08:15)
[2022-02-11] MEDS: sennosides-docusate Tablet 2 TAB PO ×2 (09:22→17:33)
[2022-02-11] MEDS: calcium carbonate 500 mg Chew Tablet 1000 MG PO ×2 (09:22→17:31)
[2022-02-11] MEDS: cholecalciferol (vitamin D3) 1,000 unit Tablet 1000 UNIT PO (09:22)
[2022-02-11] MEDS: aspirin 325 mg EC Tablet PO (09:22)
[2022-02-11] MEDS: pantoprazole DR 40 mg Tablet PO ×2 (09:22→17:33)
[2022-02-11] MEDS: CELEcoxib 200 mg Capsule PO ×2 (09:23→21:03)
[2022-02-11] MEDS: multivitamin therapeutic Tablet 1 TAB PO (09:23)
[2022-02-11] MEDS: sulfamethoxazole-trimeth DS 160-800 mg Tablet 1 TAB PO ×2 (09:23→17:33)
[2022-02-11] MEDS: iron polysaccharide complex 150 mg Capsule PO ×2 (09:25→17:33)
[2022-02-11] MEDS: chlorhexidine gluconate 0.12% Btl 473 mL 30 ML MUCOUS MEM ×2 (09:25→17:40)
[2022-02-11] MEDS: timolol 0.5% Op Soln 5 mL Btl 1 DROP EYE-BOTH ×2 (10:04→21:06)
[2022-02-11 11:30] LABS: Glucose Point of Care 158 mg/dL (70-110)
--- NOTE | 2022-02-11 11:41 | XRR_ITS ---
PROCEDURE INFORMATION: Exam: XR Pelvis Exam date and time: 02/11/2022 11:58 AM Age: 76 years old Clinical indication: Hip pain; Left hip; Prior surgery; Surgery date: Post-operative (0-2 days); Surgery type: --s/p lt hip surg 2 days ago, pain; Additional info: Fall TECHNIQUE: Imaging protocol: XR pelvis. Views: 1 or 2 view. COMPARISON: CR XR pelvis 1-2V* [id number] 02/10/2022 4:30 PM FINDINGS: Bones/joints: There is generalized osteopenia. 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 No acute fracture. There are metallic arthroplasty present in both hips in good position. Soft tissues: There is subcutaneous emphysema in the left pelvic soft tissues showing decreased volume since prior examination XR/XR pelvis 1-2V* [id number] IMPRESSION: 1. No acute findings. 2. Bilateral metallic hip arthroplasty in good position. 3. Subcutaneous emphysema left hip decreased since prior
--- NOTE | 2022-02-11 14:44 | PM.PN ---
Subjective Subjective: Patient underwent left total hip arthroplasty yesterday. Today, she became visible in the bathroom and fell suffering a skin tear to the right arm. Imaging studies were obtained which demonstrated. She was recommended, but I advised her that with her dizziness, is not necessarily appropriate at this time. Medications: Reviewed: Yes Vitals/I&O/Wt Last Vital Signs Temp 98.0 F 02/11/22 12:00 Pulse 80 02/11/22 12:00 Resp 16 02/11/22 12:00 BP 101/64 02/11/22 12:00 Pulse Ox 99 02/11/22 12:00 02/10/22 02/11/22 02/11/22 22:59 06:59 14:59 Intake Total 810 / 1980 660 / 2640 100 / 100 Output Total 800 / 800 1350 / 2150 Balance 10 / 1180 -690 / 490 100 / 100 Physical Exam Const: COMMON NORMALS: no acute distress, average body habitus, patient oriented x3 and alert GENERAL APPEARANCE: cooperative and comfortable ORIENTATION/CONSCIOUSNESS: Yes awake HENMT: COMMON NORMALS: normocephalic and atraumatic HEAD & SCALP: normocephalic and atraumatic Eye: GENERAL EYE: appearance normal, both eyes and all related structures Chest: COMMONS NORMALS: normal inspection of the chest Resp: COMMON NORMALS: normal respiratory effort EFFORT & INSPECTION: Yes able to speak in complete sentences and Yes symmetric chest movement Extremity: LEFT LOWER EXTREMITY: Yes hip joint (Dressing dry and intact) Left hip: Yes inspection (No significant swelling.), Yes palpation (Minimal tenderness.), Yes ROM (Not evaluated.) and Yes neurovascular exam (Intact distally.) Neuro: COMMON NORMALS: patient oriented x3 SENSORIUM/ORIENTATION: Yes alert Psych: COMMON NORMALS: mental status grossly normal APPEARANCE: Yes grossly normal ATTITUDE: Yes calm and Yes engaged ATTENTION/CONCENTRATION: Yes attention grossly intact Skin: COMMON NORMALS: no rashes or lesions noted GENERAL SKIN EXAM: no rashes or lesions noted Urinary Catheter Management: Gar: Cath Placed During This Visit: yes, but has since been removed by the nurse Reason for Continuing Indwelling Catheter: Not indwelling catheter Urinary Catheter Date of Insertion: 02/10/22 Urinary Catheter Time of Insertion: 14:05 Date Urinary Catheter Removed: 02/11/22 Time Urinary Catheter Discontinued: 06:30 Data : 02/11/22 01:14 04/13/22 01:14 Xray Ortho: My impression: As the patient became dizzy and fell today, a new AP pelvis image was ordered. This was compared with the image immediate postop, and there has been no significant change. The hip remains in good position. A&P Assessment and plan (1) S/P total left hip arthroplasty: The patient is postop day 1 following left total hip arthroplasty. She feels that she is ready to go home, but today, she became dizzy in the bathroom and fell suffering a skin tear to her right upper extremity. X-rays were obtained and demonstrate no evidence of fracture or dislocation. The patient is advised that she needs to remain an additional day. She also had low blood pressure last evening and medicine was consulted. She had a stress test today and multiple laboratory studies. Plan will be for possible discharge tomorrow pending medical approval as well. Status: Acute (2) Primary osteoarthritis of left hip: Status: Acute Attestations Medical Necessity Statement*: Patient requires ongoing inpatient status secondary to low blood pressure and dizziness resulting in fall. 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
--- NOTE | 2022-02-11 15:56 | PM.PN ---
Subjective Subjective: She had an episode of dizziness today while she was in bathroom and she fell on her knees. She was also hypotensive at that time likely vasovagal. Medications: Reviewed: Yes Medication Review Details: Generic Name Dose Route Start Last Admin Trade Name Daniel PRN Reason Stop Dose Admin Aminophylline 25 mg 02/11/22 07:14 02/11/22 08:15 Aminophylline 25 Mg/Ml Sdv 10 Ml IVP 02/12/22 07:13 25 mg Q2M PRN Administration see dose instruct ions Aspirin 325 mg 02/11/22 09:00 02/11/22 09:22 Aspirin 325 Mg E c Tablet PO 325 mg DAILY [facility] Administration Brimonidine Tartra te 1 drop 02/10/22 21:00 02/11/22 10:02 Brimonidine 0.1% Op Soln 5 Ml Btl EYE-BOTH 1 drop BID@0900,2100 [facility] Administration Calcium Carbonate 1,000 mg 02/10/22 18:00 02/11/22 09:22 Calcium Carbonat e 500 Mg Chew Tabl et PO 1,000 mg BID DEIDRE Administration Celecoxib 200 mg 02/10/22 21:00 02/11/22 09:23 Celecoxib 200 Mg Capsule PO 200 mg Q12H DEIDRE Administration Chlorhexidine Gluc analisa 30 ml 02/10/22 17:29 02/11/22 09:25 Chlorhexidine Gl uconate 0.12% Btl 473 Ml MUCOUS MEM 30 ml QID DEIDRE Administration Insulin Human Lisp ro 0 unit 02/11/22 08:00 02/11/22 11:43 Insulin Lispro 1 00 Unit/1 Ml SUBCUT Not Given WM&BEDTIME [facility] Protocol Metoprolol Tartrat e 25 mg 02/11/22 01:30 02/11/22 09:26 Metoprolol Tartr ate 25 Mg Tablet PO Not Given BID@0900,2100 [facility] Multivitamins Ther apeutic 1 tab 02/11/22 09:00 02/11/22 09:23 Multivitamin The rapeutic Tablet PO 1 tab DAILY [facility] Administration Mupirocin 1 applic 02/10/22 18:00 02/11/22 09:26 Mupirocin Oint 2 2 Gm NASAL 02/15/22 17:59 Not Given BID [facility] Nitroglycerin 0.5 inch 02/11/22 01:30 02/11/22 15:23 Nitroglycerin 1 Gm/Inch Oint Pkt TOPICAL Not Given Q6H [facility] Non-Formulary Medi cation 1 tab 02/11/22 09:00 02/11/22 09:23 Calcium Carbonat e-Vitamin D3 PO Not Given DAILY [facility] Non-Formulary Medi cation 1 drop 02/10/22 21:00 02/10/22 21:07 Carboxymethylcel lulose Sodium [Ref resh Tears] EYEAFF Not Given BEDTIME [facility] Non-Formulary Medi cation 99 mg 02/11/22 09:00 02/11/22 09:26 Potassium PO Not Given DAILY [facility] Ondansetron HCl 4 mg 02/10/22 17:29 02/10/22 23:21 Ondansetron 2 Mg /Ml Sdv 2 Ml IVP 4 mg Q6H PRN Administration NAUSEA AND VOMITI NG Ondansetron HCl 4 mg 02/11/22 07:14 02/11/22 08:07 Ondansetron 2 Mg /Ml Sdv 2 Ml IVP 4 mg Q2M PRN Administration NAUSEA Oxycodone HCl 5 mg 02/10/22 17:29 02/11/22 10:01 Oxycodone 5 Mg I r Tab/Cap PO 5 mg Q4H PRN Administration MODERATE PAIN Pantoprazole Sodiu m 40 mg 02/10/22 18:00 02/11/22 09:[address] 40 Mg Tablet PO 40 mg BID [facility] Administration Polysaccharide Iro n Complex 150 mg 02/10/22 18:00 02/11/22 09:25 Iron Polysacchar shena Complex 150 Mg Capsule PO 150 mg BIDWM [facility] Administration Senna/Docusate Sod ium 2 tab 02/10/22 18:00 02/11/22 09:22 Sennosides-Docus ate Tablet PO 2 tab BID [facility] Administration Timolol Maleate 1 drop 02/10/22 21:00 02/11/22 10:04 Timolol 0.5% Op Soln 5 Ml Btl EYE-BOTH 1 drop BID@0900,2100 [facility] Administration Trimethoprim/Sulfa methoxazole 1 tab 02/10/22 18:00 02/11/22 09:23 Sulfamethoxazole -Trimeth Ds 160-80 0 Mg Tablet PO 1 tab BID [facility] Administration Protocol Vitamin D 1,000 unit 02/11/22 09:00 02/11/22 09:22 Cholecalciferol (Vitamin D3) 1,000 Unit Tablet PO 1,000 unit DAILY DEIDRE Administration Vitals/I&O/Wt Last Vital Signs Temp 97.7 F 02/11/22 15:53 Pulse 82 02/11/22 15:53 Resp 18 02/11/22 15:53 BP 176/55 02/11/22 15:53 Pulse Ox 94 02/11/22 15:53 02/11/22 02/11/22 02/11/22 06:59 14:59 22:59 Intake Total 660 / 2640 220 / 220 Output Total 1350 / 2150 Balance -690 / 490 220 / 220 Physical Exam Const: COMMON NORMALS: patient oriented x3 HENMT: COMMON NORMALS: normocephalic and atraumatic HEAD & SCALP: normocephalic and atraumatic Eye: GENERAL EYE: appearance normal, both eyes and all related structures Chest: CHEST: Yes Symmetrical chest wall rise Resp: COMMON NORMALS: clear to auscultation bilaterally EFFORT & INSPECTION: Yes symmetric chest movement AUSCULTATION: clear to auscultation bilaterally Cardio: COMMON NORMALS: regular rate, regular rhythm, S1 normal heart sound present, S2 normal heart sound present, No gallops present (Cardio), No murmurs present (Cardio), No rub (Cardio) and Peripheral pulses 2+ throughout RATE: regular rate RHYTHM: regular rhythm HEART SOUNDS: S1 normal heart sound present and S2 normal heart sound present PERIPHERAL PULSES: Peripheral pulses 2+ throughout GI: COMMON NORMALS: Normal to inspection, nondistended, normoactive bowel sounds present, Soft to palpation, non-tender, No hepatosplenomegaly present and no masses AUSCULTATION: Yes normoactive bowel sounds PALPATION: Yes Soft to palpation and Yes No hepatosplenomegaly present RECTAL EXAM: deferred Extremity: COMMON NORMALS: no clubbing, cyanosis or edema and no pedal edema Neuro: COMMON NORMALS: patient oriented x3 Urinary Catheter Management: Gar: Cath Placed During This Visit: yes, but has since been removed by the nurse Reason for Continuing Indwelling Catheter: Not indwelling catheter Urinary Catheter Date of Insertion: 02/10/22 Urinary Catheter Time of Insertion: 14:05 Date Urinary Catheter Removed: 02/11/22 Time Urinary Catheter Discontinued: 06:30 Data : 02/11/22 01:14 02/11/22 01:14 A&P Assessment and plan (1) Primary osteoarthritis of left hip: Status: Acute Plan Assessment Postop acute hypotension: Patient had extensive work-up of acute hypotension, Underwent nuclear stress test today: Abnormal myocardial perfusion imaging with large sized infarct with small ?area of isaak-infarct ischemia noted in the apical. apical lateral and apical ?inferior aaron LV systolic function is normal. Troponin trend: Negative EKG: Has failed to show any acute ST-T wave changes A.m. labs have been reviewed: Patient currently denies any chest pain For most part blood pressure has been fairly well controlled Current plan will be to continue to monitor blood pressure. Monitor orthostatic vital sign Attestations Medical Necessity Statement*: Per primary team. 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
[2022-02-11 17:12] LABS: Glucose Point of Care 133 mg/dL (70-110)
[2022-02-11] MEDS: acetaminophen 500 mg Tablet 1000 MG PO (17:33)
[2022-02-11 21:02] LABS: Glucose Point of Care 111 mg/dL (70-110)
[2022-02-11 21:02] LABS: Glucose Point of Care 177 mg/dL (70-110)
[2022-02-11] MEDS: atorvastatin 40 mg Tablet 20 MG PO (21:02)
[2022-02-11] MEDS: metoprolol tartrate 25 mg Tablet PO (21:03)
[2022-02-11] MEDS: insulin lispro 100 unit/1 mL SUBCUT (21:16)
[2022-02-12] VITALS: BP 102/63; PULSE 59; RESP 18; TEMP 36.4; O2SAT 97
[2022-02-12 04:00] VITALS: BP 170/71; PULSE 62; RESP 20; TEMP 36.3; O2SAT 99
[2022-02-12 06:14] LABS: Glucose Point of Care 104 mg/dL (70-110)
[2022-02-12 07:23] VITALS: BP 110/54; PULSE 59; RESP 18; TEMP 36.5; O2SAT 98
[2022-02-12 07:45] VITALS: PULSE 60; RESP 18; O2SAT 97
[2022-02-12] MEDS: sennosides-docusate Tablet 2 TAB PO (10:05)
[2022-02-12] MEDS: calcium carbonate 500 mg Chew Tablet 1000 MG PO (10:05)
[2022-02-12] MEDS: iron polysaccharide complex 150 mg Capsule PO (10:05)
[2022-02-12] MEDS: sulfamethoxazole-trimeth DS 160-800 mg Tablet 1 TAB PO (10:05)
[2022-02-12] MEDS: multivitamin therapeutic Tablet 1 TAB PO (10:06)
[2022-02-12] MEDS: cholecalciferol (vitamin D3) 1,000 unit Tablet 1000 UNIT PO (10:06)
[2022-02-12] MEDS: pantoprazole DR 40 mg Tablet PO (10:07)
[2022-02-12] MEDS: CELEcoxib 200 mg Capsule PO (10:11)
[2022-02-12] MEDS: timolol 0.5% Op Soln 5 mL Btl 1 DROP EYE-BOTH (10:12)
[2022-02-12 11:41] VITALS: BP 93/45; PULSE 78; RESP 16; TEMP 37; O2SAT 97
[2022-02-12 12:39] LABS: Glucose Point of Care 151 mg/dL (70-110)
--- NOTE | 2022-02-12 13:46 | P.DS_ITS ---
Discharge Providers Date of Admission: 02/10/22 16:01 Date of Discharge: February 12, 2022 Attending Provider at Admission: Deana Harris MD Attending Provider at Discharge: Arcenio Han MD Primary Care Provider: Mahamed Cuba MD Diagnoses at Discharge Discharge Diagnosis (1) Primary osteoarthritis of left hip: Status: Acute (2) S/P total left hip arthroplasty: Status: Acute Permanent problem details: Date of procedure: February 10, 2022 Diagnosis: Severe osteoarthritis left hip Procedure done: Left total hip arthroplasty Implants: The [employer] [place] total hip system with the following implants: A 46 mm by C Trident II solid back acetabular shell, an MDM cementless liner 36 mm inner d iameter by C alpha code and Accolade II size 4 with 127 degree neck angle hip stem with a 22.2 mm outer diameter +0 mm neck offset femoral head and a mandaeism X3 insert size 22.2 mm inner diameter by 36C Reason for Visit Reason for Visit: osteoarthritis left hip Brief History: This 76-year-old woman presented to my office complaining of severe left hip pain.? She previously undergone right total hip arthroplasty in approximately 2016 with me.? She presented with limitations in her activities of daily living.? She wished to proceed with left total hip arthroplasty.? Discussion was undertaken with the patient regarding risks and benefits.? She understood and wished to proceed. Hospital Course Hospital Course This 76-year-old woman who is status post right total hip arthroplasty remotely presented with complaints of severe left hip pain. She wished to proceed with total hip arthroplasty. She underwent surgery the day of admission to the hospital. The evening following surgery, she had a hypotensive episode, and the hospitalist team was consulted. At that time, CBC, CMP, EKG, and troponins were checked as well as chest x-ray and urinalysis. Additionally, the patient had a stress test ordered for her. On the first postoperative day, the following morning, the patient was doing much better although she did become dizzy while seated on the toilet and slipped between the toilet and the wall. X-rays were obtained at that time, and the hip remained intact with no evidence of fracture or dislocation. The patient continued to be monitored by the hospitalist team, and on the second postoperative day, she was deemed ready for discharge. She was doing well with therapy. She was requiring little to no pain medication. The patient was seen and evaluated and felt appropriate for discharge home. Physical Exam Const: COMMON NORMALS: no acute distress, average body habitus, patient oriented x3 and alert GENERAL APPEARANCE: cooperative and comfortable ORIENTATION/CONSCIOUSNESS: Yes awake HENMT: COMMON NORMALS: normocephalic and atraumatic HEAD & SCALP: normocephalic and atraumatic Eye: GENERAL EYE: appearance normal, both eyes and all related structures Chest: COMMONS NORMALS: normal inspection of the chest Resp: COMMON NORMALS: normal respiratory effort EFFORT & INSPECTION: Yes able to speak in complete sentences and Yes symmetric chest movement Extremity: LEFT LOWER EXTREMITY: Yes hip joint (Dressing is dry and intact.) Left hip: Yes inspection (No swelling within the left hip.), Yes palpation (Minimal to no tenderness.) and Yes neurovascular exam (Intact without evidence of DVT.) Neuro: COMMON NORMALS: patient oriented x3 SENSORIUM/ORIENTATION: Yes alert Psych: COMMON NORMALS: mental status grossly normal APPEARANCE: Yes grossly normal ATTITUDE: Yes calm and Yes engaged ATTENTION/CONCENTRATION: Yes attention grossly intact Skin: COMMON NORMALS: no rashes or lesions noted GENERAL SKIN EXAM: no rashes or lesions noted Urinary Catheter Management: Gar: Cath Placed During This Visit: yes, but has since been removed by the nurse Reason for Continuing Indwelling Catheter: Not indwelling catheter Urinary Catheter Date of Insertion: 02/10/22 Urinary Catheter Time of Insertion: 14:05 Date Urinary Catheter Removed: 02/11/22 Time Urinary Catheter Discontinued: 06:30 Discharge Data Studies Completed and Pending Completed Studies During Hospitalization Category Date Time Status Cardiac Stress Test MIBI [Sestamibi Stress Test Request Exams 02/11/22 07:14 Draft ] Routine XR chest 1V portable [id number] Routine Exams 02/10/22 23:02 Completed XR pelvis 1-2V* [id number] Routine Exams 02/10/22 16:23 Completed XR pelvis 1-2V* [id number] Routine Exams 02/11/22 11:41 Completed NM nuno perf SPECT r/s* [id number] Routine Nuc Med 02/11/22 01:20 Completed CV. echo complete* [id number] Routine Ultrasound 02/11/22 01:20 Completed Pending at discharge Category Date Time Status Urine Culture Routine Lab 02/10/22 23:15 Results Radiology Impressions Chest X-Ray 02/10/22 23:02 IMPRESSION: No acute findings. Pelvis X-Ray 02/11/22 11:41 IMPRESSION: 1. No acute findings. 2. Bilateral metallic hip arthroplasty in good position. 3. Subcutaneous emphysema left hip decreased since prior Laboratory Results WBC 8.5 10^3/uL (4.0-10.0) 02/11/22 01:14 RBC 3.86 10^6/uL (4.1-5.3) L 02/11/22 01:14 Hgb 12.5 g/dL (11.5-15.3) 02/11/22 01:14 Hct 38.6 % (37.0-47.0) 02/11/22 01:14 MCV 100.0 fl (81-99) H 02/11/22 01:14 MCH 32.4 pg (28.0-34.0) 02/11/22 01:14 MCHC 32.4 g/dL (30.0-36.0) 02/11/22 01:14 RDW 14.2 % (12.1-15.1) 02/11/22 01:14 Plt Count 189 10^3/cmm (130-400) 02/11/22 01:14 MPV 9.1 fL (7.4-10.4) 02/11/22 01:14 Neut % (Auto) 76.1 % 02/11/22 01:14 Lymph % (Auto) 12.6 % 02/11/22 01:14 [place] % (Auto) 9.8 % 02/11/22 01:14 Eos % (Auto) 0.6 % 02/11/22 01:14 Baso % (Auto) 0.5 % 02/11/22 01:14 Neut # (Auto) 6.50 10^3/uL (1.8-7.7) 02/11/22 01:14 Lymph # (Auto) 1.1 10^3/uL (0.8-4.8) 02/11/22 01:14 [place]cock # (Auto) 0.8 10^3/uL (0.2-0.9) 02/11/22 01:14 Eos # (Auto) 0.1 10^3/uL (0.0-0.8) 02/11/22 01:14 Baso # (Auto) 0.0 10^3/uL (0.0-0.1) 02/11/22 01:14 Nucleated RBC % (auto) 0 % 02/11/22 01:14 Nucleated RBCs # 0.0 /100WBC 02/11/22 01:14 Sodium 138 mmol/L (136-145) 02/11/22 01:14 Potassium 4.3 mmol/L (3.5-5.1) 02/11/22 01:14 Chloride 107 mmol/L (98-107) 02/11/22 01:14 Carbon Dioxide 21 mmol/L (22-29) L 02/11/22 01:14 Anion Gap 14.3 (5-19) 02/11/22 01:14 BUN 15 mg/dL (8-23) 02/11/22 01:14 Creatinine 0.8 mg/dL (0.5-0.9) 02/11/22 01:14 GFR Calculation Not Reportable 02/11/22 01:14 Glucose 151 mg/dL (65-115) H 02/11/22 01:14 POC Glucose 151 mg/dL (70-110) H 02/12/22 10:55 Calculated Osmolality 290 mOsm/kg (285-295) 02/11/22 01:14 Calcium 9.5 mg/dL (8.5-10.5) 02/11/22 01:14 Total Bilirubin 0.4 mg/dL (0.15-1.2) 02/10/22 23:12 AST 26 U/L (0-32) 02/10/22 23:12 ALT 12 U/L (0-33) 02/10/22 23:12 Alkaline Phosphatase 77 IU/L (35-105) 02/10/22 23:12 Troponin T Baseline 16 ng/L (0-10) H 02/10/22 23:12 Troponin T 120 Minute 14.43 ng/L (0-10) H 02/11/22 01:14 Delta Troponin T -1.57 ABS# (0-10) L 02/11/22 01:14 Troponin T Hi Sens 6Hr 12.76 ng/L (0-10) H 02/11/22 05:33 Troponin T Hi Sens 6Hr Delta -3.24 ng/L (0-12) L 02/11/22 05:33 Total Protein 5.7 g/dL (6.6-8.7) L 02/10/22 23:12 Albumin 3.5 g/dL (3.5-5.2) 02/10/22 23:12 Globulin 2.2 g/dL (1.3-4.6) 02/10/22 23:12 Urine Color Yellow (Yellow) 02/10/22 23:15 Urine Appearance Sl hazy (CLEAR) 02/10/22 23:15 Urine pH 5 (5-7) 02/10/22 23:15 Ur Specific [place] 1.020 (1.005-1.030) 02/10/22 23:15 Urine Protein Trace (Negative) 02/10/22 23:15 Urine Glucose (UA) Norm (Normal) 02/10/22 23:15 Urine Ketones 1+ (Negative) H 02/10/22 23:15 Urine Blood 2+ (Negative) H 02/10/22 23:15 Urine Nitrate Negative (Negative) 02/10/22 23:15 Urine Bilirubin 1+ (Negative) H 02/10/22 23:15 Urine Urobilinogen 1 mg/dL (Negative) H 02/10/22 23:15 Ur Leukocyte Esterase Negative (Negative) 02/10/22 23:15 Urine RBC 0-4 /hpf (0-2) H 02/10/22 23:15 Urine WBC 15-25 /hpf (0-5) H 02/10/22 23:15 Ur Squamous Epith Cells 0-4 /hpf (0-5) H 02/10/22 23:15 Amorphous Sediment Not Reportable 02/10/22 23:15 Urine Bacteria Trace /hpf (NONE) 02/10/22 23:15 Urine Mucus 1+ /hpf 02/10/22 23:15 Vitals Last Vital Signs Temp 98.6 F 02/12/22 11:41 Pulse 78 02/12/22 11:41 Resp 16 02/12/22 11:41 BP 93/45 02/12/22 11:41 Pulse Ox 97 02/12/22 11:41 Discharge Plan Discharge Patient Disposition: Home Health Service Condition: Stable Prescriptions: New celecoxib 200 mg Capsule 200 mg PO DAILY 30 Days Qty: 30 0RF aspirin 325 mg Tablet,Delayed Release (Dr/Ec) 325 mg PO DAILY 90 Days Qty: 90 0RF oxycodone 5 mg Tablet 5 mg PO Q4H PRN (Reason: Moderate Pain) 7 Days Qty: 30 0RF Continued acetaminophen [Tylenol Extra Strength] 500 mg tablet 500 mg PO Q6H PRN (Reason: pain) 0RF simvastatin 20 mg tablet 20 mg PO DAILY Qty: 90 3RF sulfamethoxazole-trimethoprim [Bactrim DS] 800-160 mg tablet 1 tab PO BID 7 Days Qty: 14 0RF Rx Instructions: Take one tablet twice daily for seven days. multivitamin Tablet 1 tab PO DAILY 0RF timolol maleate 0.5 % drops 1 drp ophthalmic (eye) BID 0RF Rx Instructions: BOTH EYES Alphagan P 0.1 % drops 1 drp ophthalmic (eye) BID 0RF Rx Instructions: BOTH EYES carboxymethylcellulose sodium [Refresh Tears] 0.5 % Drops 1 drp OPHTHALMIC (EYE) BEDTIME 0RF pantoprazole 40 mg tablet,delayed release (DR/EC) 40 mg PO BID 0RF Rx Instructions: Take 1 tablet by mouth twice daily potassium 99 mg Tablet 99 mg PO DAILY 0RF Calcium 600 + D(3) 600-125 mg-unit Tablet 1 tab PO DAILY 0RF ipratropium bromide 21 mcg (0.03 %) spray,non-aerosol 2 spray intranasal TID PRN (Reason: Allergy Symptoms) 0RF Rx Instructions: USE 2 SPRAY(S) IN EACH NOSTRIL THREE TIMES DAILY Discharge Orders: Discharge Order (Routine); Ordered 02/12/22 Ordered By: Deana Harris Referrals: [facility] [Outside] Deana Harris MD [Physician] - 02/23/22 8:15 am Discharge Diet: Advance as tolerated and Usual diet Discharge Activity: Increase activity as tolerated, Limit activity as instructed, Use walker/crutches as instructed and As per PT/OT instructions Patient Instructions: Opioid Safety Activity Restrictions/Additional Instructions: Posterior hip precautions. Weightbearing as tolerated. Home physical therapy for help with activities of daily living. Discharge Attestations Time Spent in Discharge Care*: greater than 30 min Specific Discharge Activities: educating patient, discussing with pcp/other providers, documenting/other paperwork and evaluating patient/reviewing data Status at Discharge: Cognitive status at discharge: cognitively intact , Quality Metrics Clinical Quality Measures [ No reported AMI, CVA or VTE this stay] Coding Level of Care Code Acute g [facility] note Diagnoses Primary osteoarthritis of left hip M16.12 S/P total left hip arthroplasty Z96.642
--- NOTE | 2022-02-12 14:07 | P.PN_ITS ---
Subjective Subjective: Patient was seen and examined this morning, denies any chest pain shortness of breath dizziness nausea vomiting palpitation. Medications: Reviewed: Yes Medication Review Details: Generic Name Dose Route Start Last Admin Trade Name Daniel PRN Reason Stop Dose Admin Aminophylline 25 mg 02/11/22 07:14 02/11/22 08:15 Aminophylline 25 Mg/Ml Sdv 10 Ml IVP 02/12/22 07:13 25 mg Q2M PRN Administration see dose instruct ions Aspirin 325 mg 02/11/22 09:00 02/11/22 09:22 Aspirin 325 Mg E c Tablet PO 325 mg DAILY DEIDRE Administration Brimonidine Tartra te 1 drop 02/10/22 21:00 02/11/22 10:02 Brimonidine 0.1% Op Soln 5 Ml Btl EYE-BOTH 1 drop BID@0900,2100 [facility] Administration Calcium Carbonate 1,000 mg 02/10/22 18:00 02/11/22 09:22 Calcium Carbonat e 500 Mg Chew Tabl et PO 1,000 mg BID DEIDRE Administration Celecoxib 200 mg 02/10/22 21:00 02/11/22 09:23 Celecoxib 200 Mg Capsule PO 200 mg Q12H DEIDRE Administration Chlorhexidine Gluc analisa 30 ml 02/10/22 17:29 02/11/22 09:25 Chlorhexidine Gl uconate 0.12% Btl 473 Ml MUCOUS MEM 30 ml QID DEIDRE Administration Insulin Human Lisp ro 0 unit 02/11/22 08:00 02/11/22 11:43 Insulin Lispro 1 00 Unit/1 Ml SUBCUT Not Given WM&BEDTIME [facility] Protocol Metoprolol Tartrat e 25 mg 02/11/22 01:30 02/11/22 09:26 Metoprolol Tartr ate 25 Mg Tablet PO Not Given BID@0900,2100 [facility] Multivitamins Ther apeutic 1 tab 02/11/22 09:00 02/11/22 09:23 Multivitamin The rapeutic Tablet PO 1 tab DAILY DEIDRE Administration Mupirocin 1 applic 02/10/22 18:00 02/11/22 09:26 Mupirocin Oint 2 2 Gm NASAL 02/15/22 17:59 Not Given BID [facility] Nitroglycerin 0.5 inch 02/11/22 01:30 02/11/22 15:23 Nitroglycerin 1 Gm/Inch Oint Pkt TOPICAL Not Given Q6H [facility] Non-Formulary Medi cation 1 tab 02/11/22 09:00 02/11/22 09:23 Calcium Carbonat e-Vitamin D3 PO Not Given DAILY [facility] Non-Formulary Medi cation 1 drop 02/10/22 21:00 02/10/22 21:07 Carboxymethylcel lulose Sodium [Ref resh Tears] EYEAFF Not Given BEDTIME [facility] Non-Formulary Medi cation 99 mg 02/11/22 09:00 02/11/22 09:26 Potassium PO Not Given DAILY [facility] Ondansetron HCl 4 mg 02/10/22 17:29 02/10/22 23:21 Ondansetron 2 Mg /Ml Sdv 2 Ml IVP 4 mg Q6H PRN Administration NAUSEA AND VOMITI NG Ondansetron HCl 4 mg 02/11/22 07:14 02/11/22 08:07 Ondansetron 2 Mg /Ml Sdv 2 Ml IVP 4 mg Q2M PRN Administration NAUSEA Oxycodone HCl 5 mg 02/10/22 17:29 02/11/22 10:01 Oxycodone 5 Mg I r Tab/Cap PO 5 mg Q4H PRN Administration MODERATE PAIN Pantoprazole Sodiu m 40 mg 02/10/22 18:00 02/11/22 09:[address] 40 Mg Tablet PO 40 mg BID [facility] Administration Polysaccharide Iro n Complex 150 mg 02/10/22 18:00 02/11/22 09:25 Iron Polysacchar shena Complex 150 Mg Capsule PO 150 mg BIDWM [facility] Administration Senna/Docusate Sod ium 2 tab 02/10/22 18:00 02/11/22 09:22 Sennosides-Docus ate Tablet PO 2 tab BID [facility] Administration Timolol Maleate 1 drop 02/10/22 21:00 02/11/22 10:04 Timolol 0.5% Op Soln 5 Ml Btl EYE-BOTH 1 drop BID@0900,2100 [facility] Administration Trimethoprim/Sulfa methoxazole 1 tab 02/10/22 18:00 02/11/22 09:23 Sulfamethoxazole -Trimeth Ds 160-80 0 Mg Tablet PO 1 tab BID [facility] Administration Protocol Vitamin D 1,000 unit 02/11/22 09:00 02/11/22 09:22 Cholecalciferol (Vitamin D3) 1,000 Unit Tablet PO 1,000 unit DAILY DEIDRE Administration Vitals/I&O/Wt Last Vital Signs Temp 98.6 F 02/12/22 11:41 Pulse 78 02/12/22 11:41 Resp 16 02/12/22 11:41 BP 93/45 02/12/22 11:41 Pulse Ox 97 02/12/22 11:41 02/11/22 02/12/22 02/12/22 22:59 06:59 14:59 Intake Total 540 / 760 100 / 860 240 / 240 Balance 540 / 760 100 / 860 240 / 240 Physical Exam Const: COMMON NORMALS: patient oriented x3 HENMT: COMMON NORMALS: normocephalic and atraumatic HEAD & SCALP: normocephalic and atraumatic Eye: GENERAL EYE: appearance normal, both eyes and all related structures Chest: CHEST: Yes Symmetrical chest wall rise Resp: COMMON NORMALS: clear to auscultation bilaterally EFFORT & I NSPECTION: Yes symmetric chest movement AUSCULTATION: clear to auscultation bilaterally Cardio: COMMON NORMALS: regular rate, regular rhythm, S1 normal heart sound present, S2 normal heart sound present, No gallops present (Cardio), No murmurs present (Cardio), No rub (Cardio) and Peripheral pulses 2+ throughout RATE: regular rate RHYTHM: regular rhythm HEART SOUNDS: S1 normal heart sound present and S2 normal heart sound present PERIPHERAL PULSES: Peripheral pulses 2+ throughout GI: COMMON NORMALS: Normal to inspection, nondistended, normoactive bowel sounds present, Soft to palpation, non-tender, No hepatosplenomegaly present and no masses AUSCULTATION: Yes normoactive bowel sounds PALPATION: Yes Soft to palpation and Yes No hepatosplenomegaly present RECTAL EXAM: deferred Extremity: COMMON NORMALS: no clubbing, cyanosis or edema and no pedal edema Neuro: COMMON NORMALS: patient oriented x3 Urinary Catheter Management: Gar: Cath Placed During This Visit: yes, but has since been removed by the nurse Reason for Continuing Indwelling Catheter: Not indwelling catheter Urinary Catheter Date of Insertion: 02/10/22 Urinary Catheter Time of Insertion: 14:05 Date Urinary Catheter Removed: 02/11/22 Time Urinary Catheter Discontinued: 06:30 Data : 02/11/22 01:14 02/11/22 01:14 Micro: Microbiology 02/10/22 23:15 Urine Culture - Preliminary Urine,Clean Catch A&P Assessment and plan (1) Primary osteoarthritis of left hip: Status: Acute Plan Assessment Postop acute hypotension: Patient had extensive work-up of acute hypotension, Underwent nuclear stress test today: Abnormal myocardial perfusion imaging with large sized infarct with small area of isaak-infarct ischemia noted in the apical. apical lateral and apical inferior aaron LV systolic function is normal. 2D Echo: Normal left ventricular size and systolic function, EF 71 %. No regional wall motion abnormalities. Mild left ventricular?hypertrophy. Grade I /IV diastolic dysfunction (abnormal ?relaxation filling pattern), normal to mildly elevated filling ?pressures.?Thickened mitral valve. Moderate mitral annular calcification. Thickened aortic valve. Trace aortic valve regurgitation. Trace tricuspid valve regurgitation. There is no pericardial effusion. Troponin trend: Negative EKG: Has failed to show any acute ST-T wave changes A.m. labs have been reviewed: Patient currently denies any chest pain. For most part blood pressure has been fairly well controlled Current plan will be to continue to monitor blood pressure. orthostatic vital sign: She can follow her pcp as outpatient for further management of Abnormal Stress test,likely will need cardiology appointment. Attestations Medical Necessity Statement*: Per Primary Team Coding Level of Care Code Acute Medical Receptionist Assistant for Hardy Fwd Exam Comprehensive Diagnoses Primary osteoarthritis of left hip M16.12
--- NOTE | 2022-02-12 15:11 | PC.NURSE ---
patient verbalized understanding of discharge instructions, home medications, and follow up appointments.
[2022-02-12 15:18] VITALS: BP 93/45; PULSE 78; RESP 16; TEMP 37; O2SAT 97
== END 2022-02-12 15:21 | disposition home health service (06) ==
LOC: MEDSURG 16:07
PROVIDERS: Internal Medicine; Admitting Provider Specialist; PCP Internal Medicine; Visit Provider Internal Medicine
PROC: (CPT 27130; principal; 2022-02-10 10:20)
DX: M16.12 Unilateral primary osteoarthritis, left hip (principal); E78.5 Hyperlipidemia, unspecified; K21.9 Gastro-esophageal reflux disease without esophagitis; Z79.891 Long term (current) use of opiate analgesic; Z86.73 Personal history of transient ischemic attack (TIA), and cerebral infarction without residual deficits; E11.9 Type 2 diabetes mellitus without complications; Z85.3 Personal history of malignant neoplasm of breast; J44.9 Chronic obstructive pulmonary disease, unspecified
CPT/HCPCS: 27130; 36415; 36416; 51702; 71045; 72170; 78452; 80048; 80053; 81001; 82962; 84484; 85025; 87086; 93005; 93017; 93306; 96372; 97116; 97161; 97166; 97530; A9500; C1776; G0378; J0280; J0690; J1650; J1815; J2405; J2704; J2785; J3010; J3370; J7030; J7040

== ENCOUNTER → 2022-02-23 08:13 | Outpatient (BNVA) | payer MEDICARE, SELFPAY | PROVIDERS: PCP Internal Medicine; Visit Provider Specialist | DX: Z96.642 Presence of left artificial hip joint (principal) | CPT/HCPCS: 73502 ==

== ENCOUNTER 2022-05-20 11:45 | Oncology outpatient (recurring) (ONCR) | payer MEDICARE, OTHER, SELFPAY ==
[2022-05-20 12:36] LABS: Basophils # 0.1 10^3/uL (0.0-0.1); Basophils % 1.5 %; Eosinophils # 0.1 10^3/uL (0.0-0.8); Hemoglobin 12.4 g/dL (11.5-15.3); Lymphocytes # 1.7 10^3/uL (0.8-4.8); Lymphocytes % 38.1 %; Mean Corpuscular HGB Conc 33.5 g/dL (30.0-36.0); Mean Corpuscular Hemoglobin 30.7 pg (28.0-34.0); Mean Corpuscular Volume 91.6 fl (81-99); Mean Platelet Volume 9.4 fL (7.4-10.4); Monocytes # 0.5 10^3/uL (0.2-0.9); Neutrophils # 2.15 10^3/uL (1.8-7.7); Neutrophils % 47.4 %; Nucleated Red Blood Cells % 0 %; Platelet Count 209 10^3/cmm (130-400); Red Blood Count 4.04 10^6/uL (4.1-5.3); Red Cell Distribution Width 13.2 % (12.1-15.1); White Blood Count 4.5 10^3/uL (4.0-10.0)
[2022-05-20 13:26] LABS: Alanine Aminotransferase 12 U/L (0-33); Albumin Level 4.2 g/dL (3.5-5.2); Alkaline Phosphatase 92 IU/L (35-105); Anion Gap 11.1 (5-19); Aspartate Amino Transferase 21 U/L (0-32); Blood Urea Nitrogen 23 mg/dL (8-23); Calcium 9.9 mg/dL (8.5-10.5); Carbon Dioxide 29 mmol/L (22-29); Chloride 102 mmol/L (98-107); Globulin 2.6 g/dL (1.3-4.6); Glucose 84 mg/dL (65-115); Lactate Dehydrogenase 210 U/L (135-214); Osmolality Calculated 289 mOsm/kg (285-295); Potassium 4.1 mmol/L (3.5-5.1); Sodium 138 mmol/L (136-145); Total Bilirubin 0.3 mg/dL (0.15-1.2); Total Protein 6.8 g/dL (6.6-8.7)
== END 2022-05-31 23:59 | disposition home or self-care (01) ==
PROVIDERS: Internal Medicine Hematology & Oncology; PCP Internal Medicine; Visit Provider Nurse Practitioner Family
DX: Z08 Encounter for follow-up examination after completed treatment for malignant neoplasm (principal); Z85.72 Personal history of non-Hodgkin lymphomas; Z85.3 Personal history of malignant neoplasm of breast; Z92.21 Personal history of antineoplastic chemotherapy; Z92.3 Personal history of irradiation; Z96.641 Presence of right artificial hip joint; Z96.642 Presence of left artificial hip joint
CPT/HCPCS: 80053; 83615; 85025; G0463

== ENCOUNTER 2022-06-01 10:49 | Outpatient (CLI) | payer MEDICARE, OTHER, SELFPAY ==
--- NOTE | 2022-06-01 11:15 | USCV_ITS ---
Jenna Nye Age: 76 Gender: F : 1945 Exam Date: 06/01/2022 11:07 Ordering Phys: Giuliano Jonas MD (Andy) [email or web address] [place] Technologist: Melva Bedolla [place] [facility] [place] Indication: carotid stenosis, s/p RT endarterectomy Risk Factors: Previous Vascular Surgery: R CEA Right Brachial BP: / Left Brachial BP: / Right Left Velocity (cm/s) Spectral Plaque Velocity (cm/s) Spectral Plaque Syst/Diast Broadening Syst/Diast Broadening 65.30/ 10.10 Prox CCA 46.50 / 6.90 82.30/ 10.90 Alfredo Mid CCA 27.30 / 6.00 40.20/ 6.80 Alfredo Distal CCA 22.30 / 4.30 55.90/ 12.40 Prox ICA 205.10/ 54.00 Hetro 71.50/ 24.10 Mid ICA 199.00/ 22.10 Hetro 80.80/ 24.90 Distal ICA 133.60/ 20.20 Homo 122.70 ECA 55.10 Hetro 0.98 ICA/CCA 4.41 Antegrade Vertebral Antegrade 42.70/ 10.10 cm/s 69.50/ 17.60 cm/s Tri Subclavian Tri 50.90 161.6 0 CONCLUSIONS S/P Right CEA. No recurrent Right ICA stenosis Left ICA stenosis 50-69%. Moderate atheromatous plaque left carotid bulb/ICA. Normal antegrade Doppler flow noted in the right vertebral artery. Normal antegrade Doppler flow noted in the left vertebral artery. Pastor Banda MD (Electronically Signed) Final Date: 01 June 2022 12:29 S
== END 2022-06-01 10:50 | disposition home or self-care (01) ==
LOC: RAD 10:50
PROVIDERS: PCP Internal Medicine; Visit Provider Thoracic Surgery (Cardiothoracic Vascular Surgery)
DX: I65.23 Occlusion and stenosis of bilateral carotid arteries (principal)
CPT/HCPCS: 93880

== ENCOUNTER 2022-06-02 08:57 | Outpatient (CLI) | payer MEDICARE, OTHER, SELFPAY ==
--- NOTE | 2022-06-02 09:08 | MM_ITS ---
WS: [id number] DIAGNOSTIC BILATERAL DIGITAL BREAST TOMOSYNTHESIS MAMMOGRAPHY WITH CAD HISTORY: Breast cancer history. COMPARISON: 07/12/2020, 07/01/2020, 02/13/2019 TECHNIQUE: Bilateral craniocaudad, mediolateral oblique, and mediolateral views are submitted with to [email or web address] and SM. Computer aided detection utilized. Breast composition: Scattered fibroglandular densities. Volume loss in the LEFT breast and postsurgic al scarring near 3:00. There are multiple small asymmetries which are stable. Some of these asymmetri es have either decreased in size or resolved. One asymmetry contains a biopsy clip but is similar siz e. Fat necrosis was noted on a prior biopsy. No significant increase in size over several years. Kishore alejo calcifications in each breast. MM/[place] [id number] IMPRESSION: BI-RADS: 2-Benign FOLLOW UP: 1 Year Follow-up
== END 2022-06-02 08:58 | disposition home or self-care (01) ==
PROVIDERS: PCP Internal Medicine; Visit Provider Internal Medicine Hematology & Oncology
DX: Z85.3 Personal history of malignant neoplasm of breast (principal)
CPT/HCPCS: 77062

== ENCOUNTER 2022-08-19 15:39 | Emergency (ER) | payer MEDICARE, OTHER, SELFPAY ==
[2022-08-19 15:42] VITALS: BP 152/86; PULSE 84; RESP 17; TEMP 36.8; O2SAT 100; BMI 21.4
--- NOTE | 2022-08-19 15:56 | PC.NURSE ---
Patient states she was constipated last night and went this morning and fell by the stool but didn't fall hard. Patient states she was fine until the ride in the ambulance and now feels nauseated. Patient stated that her couldn't help her up and called some friends to help then EMS called. Patient had right hip surgery in December.
--- NOTE | 2022-08-19 15:58 | CTR_ITS ---
PROCEDURE INFORMATION: Exam: CT Head Without Contrast Exam date and time: 08/19/2022 4:06 PM Age: 77 years old Clinical indication: Injury or trauma; Fall; Blunt trauma (contusions or hematomas); Without loss of consciousness; Additional info: Fall headache TECHNIQUE: Imaging protocol: Computed tomography of the head without contrast. Radiation optimization: All CT scans at this facility use at least one of these dose optimization techniques: automated exposure control; mA and/or kV adjustment per patient size (includes targeted exams where dose is matched to clinical indication); or iterative reconstruction. COMPARISON: CT head wo con* [id number] 09/03/2021 10:36 AM RADIATION DOSE METRICS: Total DLP (mGy-cm): 1016.58 FINDINGS: Brain: No hemorrhage. No edema. Moderative diffuse cerebral atrophy and mild sequela of chronic small vessel ischemic disease. No mass effect. Cerebral ventricles: No ventriculomegaly. Paranasal sinuses: Opacified right frontal and ethmoid sinuses. Mastoid air cells: Visualized mastoid air cells are well aerated. Bones/joints: Unremarkable. No acute fracture. Soft tissues: Unremarkable. CT/CT head wo con* [id number] IMPRESSION: No acute intracranial abnormality.
--- NOTE | 2022-08-19 15:58 | CTR_ITS ---
PROCEDURE INFORMATION: Exam: CT Cervical Spine Without Contrast Exam date and time: 08/19/2022 4:09 PM Age: 77 years old Clinical indication: Injury or trauma; Fall; Blunt trauma; Additional info: Fall; Head injury TECHNIQUE: Imaging protocol: Computed tomography of the cervical spine without contrast. Radiation optimization: All CT scans at this facility use at least one of these dose optimization techniques: automated exposure control; mA and/or kV adjustment per patient size (includes targeted exams where dose is matched to clinical indication); or iterative reconstruction. COMPARISON: CT cervical spin wo con* [id number] 07/14/2020 8:54 PM RADIATION DOSE METRICS: Total DLP (mGy-cm): 160.87 FINDINGS: Bones/joints: No acute fracture. Normal alignment. No significant disc protrusion. No severe spinal canal stenosis. Lungs: Lung apices are normal. Soft tissues: Unremarkable. CT/CT cervical spin wo con* [id number] IMPRESSION: No acute findings.
--- NOTE | 2022-08-19 15:58 | ECG_ITS ---
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 Measurements Intervals [place] Rate: 79 P: 55 SD: 232 QRS: 20 QRSD: 89 T: 12 QT: 367 QTc: 421 Interpretive Statements SINUS RHYTHM WITH FIRST DEGREE AV BLOCK LOW QRS VOLTAGE IN PRECORDIAL LEADS [QRS DEFLECTION < 1.0 mV IN CHEST LEADS] Compared to ECG 02/11/2022 04:11:59 First degree AV block now present Low QRS voltage now present Poor R-wave progression no longer present Electronically Signed On 08-19-2022 22:44:53 CDT by Gustabo Orta M.D. [id number]
--- NOTE | 2022-08-19 16:00 | XRR_ITS ---
PROCEDURE INFORMATION: Exam: XR Chest Exam date and time: 08/19/2022 4:13 PM Age: 77 years old Clinical indication: Injury or trauma; Fall; Blunt trauma (contusions or hematomas); Additional info: Dizzy TECHNIQUE: Imaging protocol: Radiologic exam of the chest. Views: 1 view. COMPARISON: CR (CHEST, ) 02/10/2022 11:08 PM FINDINGS: Lungs: Unremarkable. No consolidation. Pleural spaces: Unremarkable. No pleural effusion. No pneumothorax. Heart/Mediastinum: Unremarkable. No cardiomegaly. Bones/joints: Unremarkable. XR/XR chest 1V portable [id number] IMPRESSION: No acute findings.
[2022-08-19 16:01] VITALS: BP 177/91; PULSE 78; RESP 16; O2SAT 98
--- NOTE | 2022-08-19 17:07 | W.ED.FALL ---
Documented by User: Bronson Almendarez MD 08/19/22 17:38 HPI - Fall General: Chief Complaint: Fall Stated Complaint: Headach/ post op hip pain post fall/ AMS Time Seen by Provider: 08/19/22 15:45 Source: patient, EMS and other (friend) Mode of arrival: EMS Limitations: no limitations History of Present Illness: See nursing assessment. Patient states that she had been constipated and took a laxative this morning. She states that when she felt the urge to defecate, she attempted to get up from bed and go to the bathroom. She states she stumbled and fell the ground. She states she bumped her head slightly on the floor. She states that she has had chronic headaches intermittently. She states she had a mild headache after the fall. She denies any neck or new back pain. She states she does have chronic back pain but no more pain than usual now. She denies any pain to her extremities. Patient denies any other problems. She states she feels fine now. Associated symptoms-after fall: Reports headache(s) (Mild occipital headache.); Denies abdominal pain, chest pain or neck pain Review of Systems Const: Denies: fever(s) or chills Eyes: Denies: change in vision ENMT: Denies: throat pain Card: Denies: chest pain or palpitations Resp: Denies: dyspnea or wheezing GI: Reports: constipation; Denies: abdominal pain, nausea or vomiting : Denies: flank pain Musc: Reports: other (Chronic low back pain); Denies: neck pain Skin/Breast: Denies: rash or pruritus Neuro: Reports: headache(s) (Mild occipital headache.); Denies: numbness in extremities Psych: Denies: anxiety Hector/Lymph: Denies: enlarged lymph nodes PFSH ED PFSH: Medical History Bilateral carotid artery stenosis without cerebral infarction Cervical disc disorder with myelopathy of mid-cervical region Chronic bronchitis Closed head injury GERD (gastroesophageal reflux disease) HX: breast cancer ER [place] negative, 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 status post radiation therapy and hormonal therapy, currently on Femara Hyperlipidemia 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 disc disorder 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 Lumbar stenosis without neurogenic claudication Pain management contract signed Spondylolisthesis of cervical region 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 (cerebrum) Hx of stroke in February 07, 2019 Surgical History H/O total hip arthroplasty Right History of cholecystectomy History of hysterectomy / BSO / appendectomy History of left breast biopsy Port-A-Cath in place 04/16/20 Status post carotid endarterectomy Social History Smoking and tobacco status: never smoked Alcohol intake: never Lives independently: Yes Household members: spouse Marital status: Current occupational status: retired History of recent travel: No Physical Exam Const: COMMON NORMALS: no acute distress, patient oriented x3, alert and well nourished GENERAL APPEARANCE: cooperative HENMT: COMMON NORMALS: normocephalic and atraumatic HEAD & SCALP: normocephalic and atraumatic OTHER: Normocephalic atraumatic. No evidence of injury. Eye: COMMON NORMALS: EOMs intact bilaterally Neck/C-Spine: COMMON NORMALS: full ROM, no lymphadenopathy, supple and no JVD OTHER: Nontender. Lymph: LYMPHATIC: no lymphadenopathy noted Chest: COMMONS NORMALS: normal inspection of the chest and normal palpation of entire chest wall Resp: COMMON NORMALS: normal respiratory effort, No retractions, No use of accessory muscles and clear to auscultation bilaterally AUSCULTATION: clear to auscultation bilaterally Cardio: COMMON NORMALS: no JVD, regular rate, regular rhythm and Peripheral pulses 2+ throughout RATE: regular rate RHYTHM: regular rhythm PERIPHERAL PULSES: Peripheral pulses 2+ throughout GI: COMMON NORMALS: Normal to inspection, nondistended, normoactive bowel sounds present, Soft to palpation and non-tender PALPATION: Yes Soft to palpation : COMMON NORMALS: Yes no CVA tenderness BLADDER/KIDNEY EXAM: Yes no CVA tenderness Back/Pelvis: COMMON NORMALS: no CVA tenderness OTHER: No spinal pain at this time. Extremity: COMMON NORMALS: normal to inspection and full ROM OTHER: Normal range of motion of all extremities. She has no pain with range of motion extremities. Neuro: COMMON NORMALS: patient oriented x3, CN's II-XII intact bilaterally, moves all extremities, no focal motor deficits and no sensory deficits noted SENSORIUM/ORIENTATION: Yes alert Psych: COMMON NORMALS: mental status grossly normal, Normal thought process present, cooperative, normal affect and speech normal SPEECH: Yes normal speech THOUGHT PROCESS: Normal thought process present Skin: COMMON NORMALS: no rashes or lesions noted GENERAL SKIN EXAM: no rashes or lesions noted Course Vital Signs: Vital signs: Vital Signs Temperature 98.2 F 08/19/22 15:42 Pulse Rate 78 08/19/22 16:01 Respiratory Rate 16 08/19/22 16:01 Blood Pressure 177/91 08/19/22 16:01 Pulse Oximetry 98 08/19/22 16:01 Oxygen Delivery Me thod 08/19/22 16:01 MDM - Fall Medical Decision Making Fall, cervical, lumbar strains 1800: Care turned over to Dr. Ordonez at shift change. Lab Data : 08/19/22 17:18 08/19/22 17:18 Radiology Impressions Cervical Spine CT 08/19/22 15:58 IMPRESSION: No acute findings. Head CT 08/19/22 15:58 IMPRESSION: No acute intracranial abnormality. Chest X-Ray 08/19/22 16:00 IMPRESSION: No acute findings. Laboratory Results WBC 7.0 10^3/uL (4.0-10.0) 08/19/22 17:18 RBC 4.52 10^6/uL (4.1-5.3) 08/19/22 17:18 Hgb 13.7 g/dL (11.5-15.3) 08/19/22 17:18 Hct 41.2 % (37.0-47.0) 08/19/22 17:18 MCV 91.2 fl (81-99) 08/19/22 17:18 MCH 30.3 pg (28.0-34.0) 08/19/22 17:18 MCHC 33.3 g/dL (30.0-36.0) 08/19/22 17:18 RDW 13.9 % (12.1-15.1) 08/19/22 17:18 Plt Count 219 10^3/cmm (130-400) 08/19/22 17:18 MPV 9.1 fL (7.4-10.4) 08/19/22 17:18 Neut % (Auto) 67.9 % 08/19/22 17:18 Lymph % (Auto) 22.1 % 08/19/22 17:18 Woods % (Auto) 8.7 % 08/19/22 17:18 Eos % (Auto) 0.4 % 08/19/22 17:18 Baso % (Auto) 0.6 % 08/19/22 17:18 Neut # (Auto) 4.74 10^3/uL (1.8-7.7) 08/19/22 17:18 Lymph # (Auto) 1.5 10^3/uL (0.8-4.8) 08/19/22 17:18 Woods # (Auto) 0.6 10^3/uL (0.2-0.9) 08/19/22 17:18 Eos # (Auto) 0.0 10^3/uL (0.0-0.8) 08/19/22 17:18 Baso # (Auto) 0.0 10^3/uL (0.0-0.1) 08/19/22 17:18 Nucleated RBC % (auto) 0 % 08/19/22 17:18 Nucleated RBCs # 0.0 /100WBC 08/19/22 17:18 Sodium 135 mmol/L (136-145) L 08/19/22 17:18 Potassium 3.7 mmol/L (3.5-5.1) 08/19/22 17:18 Chloride 98 mmol/L (98-107) 08/19/22 17:18 Carbon Dioxide 27 mmol/L (22-29) 08/19/22 17:18 Anion Gap 13.7 (5-19) 08/19/22 17:18 BUN 23 mg/dL (8-23) 08/19/22 17:18 Creatinine 0.6 mg/dL (0.5-0.9) 08/19/22 17:18 GFR Calculation Not Reportable 08/19/22 17:18 Glucose 120 mg/dL (65-115) H 08/19/22 17:18 Calculated Osmolality 285 mOsm/kg (285-295) 08/19/22 17:18 Calcium 9.8 mg/dL (8.5-10.5) 08/19/22 17:18 Total Bilirubin 0.4 mg/dL (0.15-1.2) 08/19/22 17:18 AST 20 U/L (0-32) 08/19/22 17:18 ALT 14 U/L (0-33) 08/19/22 17:18 Alkaline Phosphatase 105 U/L (35-105) 08/19/22 17:18 Total Protein 7.2 g/dL (6.6-8.7) 08/19/22 17:18 Albumin 4.0 g/dL (3.5-5.2) 08/19/22 17:18 Globulin 3.2 g/dL (1.3-4.6) 08/19/22 17:18 Urine Color Yellow (Yellow) 08/19/22 17:25 Urine Appearance Clear (CLEAR) 08/19/22 17:25 Urine pH 7 (5-7) 08/19/22 17:25 Ur Specific [place] 1.015 (1.005-1.030) 08/19/22 17:25 Urine Protein Neg (Negative) 08/19/22 17:25 Urine Glucose (UA) Norm (Normal) 08/19/22 17:25 Urine Ketones Negative (Negative) 08/19/22 17:25 Urine Blood Neg (Negative) 08/19/22 17:25 Urine Nitrate Negative (Negative) 08/19/22 17:25 Urine Bilirubin Neg (Negative) 08/19/22 17:25 Urine Urobilinogen Neg mg/dL (Negative) 08/19/22 17:25 Ur Leukocyte Esterase Negative (Negative) 08/19/22 17:25 Amorphous Sediment Not Reportable 08/19/22 17:25 Imaging Data CXR: Radiologist's impression: PROCEDURE INFORMATION: Exam: XR Chest Exam date and time: 08/19/2022 4:13 PM Age: 77 years old Clinical indication: Injury or trauma; Fall; Blunt trauma (contusions or hematomas); Additional info: Dizzy TECHNIQUE: Imaging protocol: Radiologic exam of the chest. Views: 1 view. COMPARISON: CR (CHEST, ) 02/10/2022 11:08 PM FINDINGS: Lungs: Unremarkable. No consolidation. Pleural spaces: Unremarkable. No pleural effusion. No pneumothorax. Heart/Mediastinum: Unremarkable. No cardiomegaly. Bones/joints: Unremarkable. XR/XR chest 1V portable [id number] IMPRESSION: No acute findings. ? Dictated By: Daniel Leon DO Signed By: Daniel Leon DO Signed Date/Time: 08/19/[address] Head: Radiologist's impression: PROCEDURE INFORMATION: Exam: CT Head Without Contrast Exam date and time: 08/19/2022 4:06 PM Age: 77 years old Clinical indication: Injury or trauma; Fall; Blunt trauma (contusions or hematomas); Without loss of consciousness; Additional info: Fall headache TECHNIQUE: Imaging protocol: Computed tomography of the head without contrast. Radiation optimization: All CT scans at this facility use at least one of these dose optimization techniques: automated exposure control; mA and/or kV adjustment per patient size (includes targeted exams where dose is matched to clinical indication); or iterative reconstruction. COMPARISON: CT head wo con* [id number] 09/03/2021 10:36 AM RADIATION DOSE METRICS: Total DLP (mGy-cm): 1016.58 FINDINGS: Brain: No hemorrhage. No edema. Moderative diffuse cerebral atrophy and mild sequela of chronic small vessel ischemic disease. No mass effect. Cerebral ventricles: No ventriculomegaly. Paranasal sinuses: Opacified right frontal and ethmoid sinuses. Mastoid air cells: Visualized mastoid air cells are well aerated. Bones/joints: Unremarkable. No acute fracture. Soft tissues: Unremarkable. CT/CT head wo con* [id number] IMPRESSION: No acute intracranial abnormality. ? Dictated By: Daniel Leon DO Signed By: Daniel Leon DO Signed Date/Time: 08/19/[address]: Radiologist's impression: PROCEDURE INFORMATION: Exam: CT Cervical Spine Without Contrast Exam date and time: 08/19/2022 4:09 PM Age: 77 years old Clinical indication: Injury or trauma; Fall; Blunt trauma; Additional info: Fall; Head injury TECHNIQUE: Imaging protocol: Computed tomography of the cervical spine without contrast. Radiation optimization: All CT scans at this facility use at least one of these dose optimization techniques: automated exposure control; mA and/or kV adjustment per patient size (includes targeted exams where dose is matched to clinical indication); or iterative reconstruction. COMPARISON: CT cervical spin wo con* [id number] 07/14/2020 8:54 PM RADIATION DOSE METRICS: Total DLP (mGy-cm): 160.87 FINDINGS: Bones/joints: No acute fracture. Normal alignment. No significant disc protrusion. No severe spinal canal stenosis.? Lungs: Lung apices are normal. Soft tissues: Unremarkable. CT/CT cervical spin wo con* [id number] IMPRESSION: No acute findings. ? Dictated By: Daniel Leon DO Signed By: Daniel Leon DO Signed Date/Time: 08/19/22 1641 EKG Data EKG 1: EKG interpretation date: 08/19/22 EKG interpretation time: 16:52 Interpretation: Impression normal sinus rhythm with heart rate of 79. First-degree AV block. Normal axis. Normal P waves, normal T waves, normal QT interval. Normal QRS. Discharge Plan Discharge Patient Disposition: Home Clinical Impression: Fall Contusion of scalp Qualifiers: Encounter type: initial encounter Qualified Code(s): S00.03XA - Contusion of scalp, initial encounter Condition: Stable Prescriptions: No Action acetaminophen [Tylenol Extra Strength] 500 mg tablet 500 mg PO Q6H PRN (Reason: pain) ipratropium bromide 21 mcg (0.03 %) spray,non-aerosol 2 spray intranasal TID PRN (Reason: Allergy Symptoms) Qty: 30 3RF Rx Instructions: USE 2 SPRAY(S) IN EACH NOSTRIL THREE TIMES DAILY multivitamin Tablet 1 tab PO DAILY timolol maleate 0.5 % drops 1 drp ophthalmic (eye) BID Rx Instructions: BOTH EYES Alphagan P 0.1 % drops 1 drp ophthalmic (eye) BID Rx Instructions: BOTH EYES pantoprazole 40 mg tablet,delayed release (DR/EC) 40 mg PO BID carboxymethylcellulose sodium [Refresh Tears] 0.5 % Drops 1 drp OPHTHALMIC (EYE) BEDTIME potassium 99 mg Tablet 99 mg PO DAILY calcium carbonate-vitamin D3 600-125 mg-unit Tablet 1 tab PO DAILY Discharge Orders: Discharge ED (Routine); Ordered 08/19/22 Ordered By: Mackenzie Ordonez Referrals: Mahamed Cuba MD [Primary Care Provider] - 1-3 days Discharge Diet: Advance as tolerated Discharge Activity: Resume usual activity Patient Instructions: Head Injury (ED) Coding Level of Care Code ED Furniture Cleaner for Chg Fwd Exam Comprehensive Documented by User: Mackenzie Ordonez MD 08/19/22 18:22 HPI - Fall General: Chief Complaint: Fall Stated Complaint: Headach/ post op hip pain post fall/ AMS Time Seen by Provider: 08/19/22 15:45 PFSH ED PFSH: Medical History Bilateral carotid artery stenosis without cerebral infarction Cervical disc disorder with myelopathy of mid-cervical region Chronic bronchitis Closed head injury GERD (gastroesophageal reflux disease) HX: breast cancer ER [place] negative, 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 status post radiation therapy and hormonal therapy, currently on Femara Hyperlipidemia 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 disc disorder 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 Lumbar stenosis without neurogenic claudication Pain management contract signed Spondylolisthesis of cervical region 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 (cerebrum) Hx of stroke in February 07, 2019 Surgical History H/O total hip arthroplasty Right History of cholecystectomy History of hysterectomy / BSO / appendectomy History of left breast biopsy Port-A-Cath in place 04/16/20 Status post carotid endarterectomy Social History Smoking and tobacco status: never smoked Alcohol intake: never Lives independently: Yes Household members: spouse Marital status: Current occupational status: retired History of recent travel: No Course Vital Signs: Vital signs: Vital Signs Temperature 98.2 F 08/19/22 15:42 Pulse Rate 78 08/19/22 16:01 Respiratory Rate 16 08/19/22 16:01 Blood Pressure 177/91 08/19/22 16:01 Pulse Oximetry 98 08/19/22 16:01 Oxygen Delivery Me thod 08/19/22 16:01 MDM - Fall Medical Decision Making Fall, cervical, lumbar strains 1800: Care turned over to Dr. Ordonez at shift change. Patient presents after a fall she is well-appearing here she is able ambulate here blood work head CT are normal she is stable for discharge she is to follow-up with PCP and return if worsening. Lab Data : 08/19/22 17:18 08/19/22 17:18 Radiology Impressions Cervical Spine CT 08/19/22 15:58 IMPRESSION: No acute findings. Head CT 08/19/22 15:58 IMPRESSION: No acute intracranial abnormality. Chest X-Ray 08/19/22 16:00 IMPRESSION: No acute findings. Laboratory Results WBC 7.0 10^3/uL (4.0-10.0) 08/19/22 17:18 RBC 4.52 10^6/uL (4.1-5.3) 08/19/22 17:18 Hgb 13.7 g/dL (11.5-15.3) 08/19/22 17:18 Hct 41.2 % (37.0-47.0) 08/19/22 17:18 MCV 91.2 fl (81-99) 08/19/22 17:18 MCH 30.3 pg (28.0-34.0) 08/19/22 17:18 MCHC 33.3 g/dL (30.0-36.0) 08/19/22 17:18 RDW 13.9 % (12.1-15.1) 08/19/22 17:18 Plt Count 219 10^3/cmm (130-400) 08/19/22 17:18 MPV 9.1 fL (7.4-10.4) 08/19/22 17:18 Neut % (Auto) 67.9 % 08/19/22 17:18 Lymph % (Auto) 22.1 % 08/19/22 17:18 Woods % (Auto) 8.7 % 08/19/22 17:18 Eos % (Auto) 0.4 % 08/19/22 17:18 Baso % (Auto) 0.6 % 08/19/22 17:18 Neut # (Auto) 4.74 10^3/uL (1.8-7.7) 08/19/22 17:18 Lymph # (Auto) 1.5 10^3/uL (0.8-4.8) 08/19/22 17:18 [place] # (Auto) 0.6 10^3/uL (0.2-0.9) 08/19/22 17:18 Eos # (Auto) 0.0 10^3/uL (0.0-0.8) 08/19/22 17:18 Baso # (Auto) 0.0 10^3/uL (0.0-0.1) 08/19/22 17:18 Nucleated RBC % (auto) 0 % 08/19/22 17:18 Nucleated RBCs # 0.0 /100WBC 08/19/22 17:18 Sodium 135 mmol/L (136-145) L 08/19/22 17:18 Potassium 3.7 mmol/L (3.5-5.1) 08/19/22 17:18 Chloride 98 mmol/L (98-107) 08/19/22 17:18 Carbon Dioxide 27 mmol/L (22-29) 08/19/22 17:18 Anion Gap 13.7 (5-19) 08/19/22 17:18 BUN 23 mg/dL (8-23) 08/19/22 17:18 Creatinine 0.6 mg/dL (0.5-0.9) 08/19/22 17:18 GFR Calculation Not Reportable 08/19/22 17:18 Glucose 120 mg/dL (65-115) H 08/19/22 17:18 Calculated Osmolality 285 mOsm/kg (285-295) 08/19/22 17:18 Calcium 9.8 mg/dL (8.5-10.5) 08/19/22 17:18 Total Bilirubin 0.4 mg/dL (0.15-1.2) 08/19/22 17:18 AST 20 U/L (0-32) 08/19/22 17:18 ALT 14 U/L (0-33) 08/19/22 17:18 Alkaline Phosphatase 105 U/L (35-105) 08/19/22 17:18 Total Protein 7.2 g/dL (6.6-8.7) 08/19/22 17:18 Albumin 4.0 g/dL (3.5-5.2) 08/19/22 17:18 Globulin 3.2 g/dL (1.3-4.6) 08/19/22 17:18 Urine Color Yellow (Yellow) 08/19/22 17:25 Urine Appearance Clear (CLEAR) 08/19/22 17:25 Urine pH 7 (5-7) 08/19/22 17:25 Ur Specific [place] 1.015 (1.005-1.030) 08/19/22 17:25 Urine Protein Neg (Negative) 08/19/22 17:25 Urine Glucose (UA) Norm (Normal) 08/19/22 17:25 Urine Ketones Negative (Negative) 08/19/22 17:25 Urine Blood Neg (Negative) 08/19/22 17:25 Urine Nitrate Negative (Negative) 08/19/22 17:25 Urine Bilirubin Neg (Negative) 08/19/22 17:25 Urine Urobilinogen Neg mg/dL (Negative) 08/19/22 17:25 Ur Leukocyte Esterase Negative (Negative) 08/19/22 17:25 Amorphous Sediment Not Reportable 08/19/22 17:25 Discharge Plan Discharge Patient Disposition: Home Clinical Impression: Fall Contusion of scalp Qualifiers: Encounter type: initial encounter Qualified Code(s): S00.03XA - Contusion of scalp, initial encounter Condition: Stable Prescriptions: No Action acetaminophen [Tylenol Extra Strength] 500 mg tablet 500 mg PO Q6H PRN (Reason: pain) ipratropium bromide 21 mcg (0.03 %) spray,non-aerosol 2 spray intranasal TID PRN (Reason: Allergy Symptoms) Qty: 30 3RF Rx Instructions: USE 2 SPRAY(S) IN EACH NOSTRIL THREE TIMES DAILY multivitamin Tablet 1 tab PO DAILY timolol maleate 0.5 % drops 1 drp ophthalmic (eye) BID Rx Instructions: BOTH EYES Alphagan P 0.1 % drops 1 drp ophthalmic (eye) BID Rx Instructions: BOTH EYES pantoprazole 40 mg tablet,delayed release (DR/EC) 40 mg PO BID carboxymethylcellulose sodium [Refresh Tears] 0.5 % Drops 1 drp OPHTHALMIC (EYE) BEDTIME potassium 99 mg Tablet 99 mg PO DAILY calcium carbonate-vitamin D3 600-125 mg-unit Tablet 1 tab PO DAILY Discharge Orders: Discharge ED (Routine); Ordered 08/19/22 Ordered By: Mackenzie Ordonez Referrals: Mahamed Cbua MD [Primary Care Provider] - 1-3 days Discharge Diet: Advance as tolerated Discharge Activity: Resume usual activity Patient Instructions: Head Injury (ED) Coding Level of Care Code ED Furniture Cleaner for Chg Fwd Exam Comprehensive
[2022-08-19 17:39] LABS: Basophils % 0.6 %; Eosinophils % 0.4 %; Hematocrit 41.2 % (37.0-47.0); Hemoglobin 13.7 g/dL (11.5-15.3); Lymphocytes # 1.5 10^3/uL (0.8-4.8); Lymphocytes % 22.1 %; Mean Corpuscular HGB Conc 33.3 g/dL (30.0-36.0); Mean Corpuscular Hemoglobin 30.3 pg (28.0-34.0); Mean Corpuscular Volume 91.2 fl (81-99); Mean Platelet Volume 9.1 fL (7.4-10.4); Monocytes # 0.6 10^3/uL (0.2-0.9); Monocytes % 8.7 %; Neutrophils # 4.74 10^3/uL (1.8-7.7); Neutrophils % 67.9 %; Nucleated Red Blood Cells % 0 %; Platelet Count 219 10^3/cmm (130-400); Red Blood Count 4.52 10^6/uL (4.1-5.3); Red Cell Distribution Width 13.9 % (12.1-15.1)
[2022-08-19 17:59] LABS: Alanine Aminotransferase 14 U/L (0-33); Alkaline Phosphatase 105 U/L (35-105); Anion Gap 13.7 (5-19); Aspartate Amino Transferase 20 U/L (0-32); Blood Urea Nitrogen 23 mg/dL (8-23); Calcium 9.8 mg/dL (8.5-10.5); Carbon Dioxide 27 mmol/L (22-29); Chloride 98 mmol/L (98-107); Globulin 3.2 g/dL (1.3-4.6); Glucose 120 mg/dL (65-115); Osmolality Calculated 285 mOsm/kg (285-295); Potassium 3.7 mmol/L (3.5-5.1); Sodium 135 mmol/L (136-145); Total Bilirubin 0.4 mg/dL (0.15-1.2); Total Protein 7.2 g/dL (6.6-8.7)
[2022-08-19 18:16] LABS: Bilirubin Urine Neg (Negative); Blood Urine Neg (Negative); Glucose Urine UA Norm (Normal); Ketones Urine Negative (Negative); Leukocyte Esterase Urine Negative (Negative); Nitrate Urine Negative (Negative); Protein Urine Neg (Negative); Specific Gravity, Urine 1.015 (1.005-1.030); Urine Appearance Clear (CLEAR); Urine Color Yellow (Yellow); Urobilinogen Urine Neg (Negative); pH Urine 7 (5-7)
[2022-08-19 18:55] LABS: Add Urine Culture? No; Squamous Epithelial Cell Urine 0-4 /hpf (0-5)
== END 2022-08-19 18:30 | disposition home or self-care (01) ==
PROVIDERS: Family Medicine; Emergency Provider Emergency Medicine; PCP Internal Medicine
DX: S00.03XA Contusion of scalp, initial encounter (principal); Z85.3 Personal history of malignant neoplasm of breast; E78.5 Hyperlipidemia, unspecified; Z86.73 Personal history of transient ischemic attack (TIA), and cerebral infarction without residual deficits; W01.0XXA Fall on same level from slipping, tripping and stumbling without subsequent striking against object, initial encounter
CPT/HCPCS: 70450; 71045; 72125; 80053; 81001; 85025; 93005; 99285

== ENCOUNTER 2022-12-22 03:46 | Emergency (ER) | payer MEDICARE, OTHER, SELFPAY ==
[2022-12-22 03:53] VITALS: BP 197/107; PULSE 68; RESP 16; TEMP 36.8; O2SAT 99; BMI 21.4
--- NOTE | 2022-12-22 04:00 | ECG_ITS ---
[facility] Test Date: 2022-12-22 Pat Name: Jenna Nye Department: Room: Gender: Female Manager Transit: : 1945 Requested By: Mackenzie Ordonez Order Number: [id number] Vicki MD: Deny Alfonso M.D. Measurements Intervals [place] Rate: 74 P: 32 VT: 188 QRS: 22 QRSD: 88 T: 31 QT: 363 QTc: 404 Interpretive Statements SINUS RHYTHM WITH OCCASIONAL SUPRAVENTRICULAR PREMATURE COMPLEXES NONSPECIFIC T-WAVE ABNORMALITY Compared to ECG 08/19/2022 16:48:16 T-wave abnormality now present First degree AV block no longer present Electronically Signed On 12-22-2022 17:37:10 MASTICATOR by Deny Alfonso M.D. [email or web address]
--- NOTE | 2022-12-22 04:00 | CTR_ITS ---
PROCEDURE INFORMATION: Exam: CT Abdomen And Pelvis With Contrast Exam date and time: 12/22/2022 4:52 AM Age: 77 years old Clinical indication: Constipation and nausea and vomiting; Abdominal pain; Generalized; Prior surgery; Surgery type: Gb. Hysterectomy. Bilat alfreda. Patient HX: C/O abd pain with n/v and no bm x 2 days. History of breast cancer and gastric lymphoma. TECHNIQUE: Imaging protocol: Computed tomography of the abdomen and pelvis with contrast. Radiation optimization: All CT scans at this facility use at least one of these dose optimization techniques: automated exposure control; mA and/or kV adjustment per patient size (includes targeted exams where dose is matched to clinical indication); or iterative reconstruction. Contrast material: OMNI 350; Contrast volume: 100 ml; Contrast route: INTRAVENOUS (IV); Other protocol: This patient has received 4 known CTs and 0 known cardiac nuclear medicine studies in the 12 months prior to the current study. COMPARISON: CT chest abdpel w/*[id number] 12/05/2020 11:31 AM RADIATION DOSE METRICS: Total DLP (mGy-cm): 383.4 FINDINGS: Lungs: The visualized lung bases show multiple unchanged punctate subpleural 0.1-0.2 cm nodules. Unchanged moderate mitral annulus ossifications. Liver: Normal liver attenuation. No mass. Gallbladder and bile ducts: Status post prior cholecystectomy. Unchanged dilated extrahepatic/common bile duct with maximal diameter of 1 cm. No calcified stones. Pancreas: Unchanged atrophic changes of the pancreas. No pancreatic ductal dilatation. Spleen: Normal spleen size. Unchanged lower splenic low-attenuation 0.9 x 0.9 cm lesion, which may represent a cyst. Adrenal glands: Normal contour. No mass. Kidneys and ureters: The corticomedullary phase enhancing kidneys show no contour deforming renal masses. No right hydronephrosis or ureterectasis. Interval development of ovcf-gp-[id number] right hydronephrosis and ureterectasis with a right ureterovesicular junction 0.7 x 0.5 x 0.8 cm calculus (series 5, image 69 and series 10, image 33)-at the level of the hip joint. The Hounsfield units are 949.3 HU. Stomach and bowel: The non-contrast opacified stomach is not well distended with zmds-ci-rpqgybld gastric fold prominence/thickening. The proximal duodenum also shows mild fold thickening. Similar findings were seen on the prior CT. Recommend correlation with clinical history. Unchanged small hiatal hernia is seen with mild distal esophageal fold thickening. The noncontrast opacified small bowel loops appear unremarkable. The noncontrast opacified loops of colon show moderate constipation. Unchanged mild descending and moderate to severe sigmoid colonic diverticulosis, without CT evidence of diverticulitis. The lack of orally administered contrast material limits assessment. Appendix: No appendix is specifically identified. No CT evidence of fluid collections or inflammatory stranding adjacent to the cecum. Intraperitoneal space: No abdominal ascites. No free air. Vasculature: Unchanged spqy-po-vryiaqcx atherosclerotic vascular calcifications. No abdominal aortic aneurysm. No abdominal aortic dissection. The portal vein region and inferior vena cava appear unremarkable. Lymph nodes: Some nonspecific subcentimeter para-aortic and aortocaval lymph nodes are seen. Urinary bladder: No bladder wall thickening or debris. Reproductive: Status post prior hysterectomy. Bones/joints: Unchanged severe degenerative disc disease changes with disc osteophyte complexes are noted from the L2-L3 through L5-S1 levels. There is efqv-wh-frkqdjfz L2-L3 central spinal stenosis. Status post bilateral hip arthroplasties. Severe symphysis pubis and sacroiliac joint degenerative changes. Soft tissues: Unremarkable. CT/CT abdomen pelvis w con* [id number] IMPRESSION: 1. Interval development of vrct-ym-muzkgjmi right hydronephrosis and ureterectasis with a right ureterovesicular junction 0.7 x 0.5 x 0.8 cm calculus (series 5, image 69 and series 10, image 33)-at the level of the hip joint. 2. Stomach not well distended. Unchanged mild to moderate gastric and proximal duodenal fold prominence/thickening. Moderate constipation. Unchanged mild descending and moderate to severe sigmoid colonic diverticulosis, without CT evidence of diverticulitis. 3. Status post prior cholecystectomy with unchanged dilated extrahepatic/common bile duct. 4. Unchanged punctate subpleural bilateral lung nodules.
--- NOTE | 2022-12-22 04:01 | ED_ITS ---
Documented by User: Mackenzie Ordonez MD 12/22/22 17:54 HPI - Abdominal Pain General: Chief Complaint: Abdominal Pain Stated Complaint: ABD Pain Time Seen by Provider: 12/22/22 03:51 Source: patient Mode of arrival: ambulatory Limitations: no limitations History of Present Illness: 77-year-old female states she has been having abdominal pain over the last 2 days states she had burning with urination has not had a bowel movement she had a history of cancer she states she supposed to have a CT scan of her abdomen tomorrow she denies any fevers she states her pain is a 4 out of 10 she denies any worsening proving factors denies any chest pain. Associated Symptoms: Reports constipation; Denies chills, dysuria and fever(s) Review of Systems Const: Denies: fever(s), chills, body aches or change in appetite Eyes: Denies: blurry vision or eye discomfort ENMT: Denies: throat pain or dental pain Card: Denies: chest pain Resp: Denies: dyspnea GI: Reports: abdominal pain and constipation : Denies: dysuria Musc: Denies: neck pain or back pain Skin/Breast: Denies: rash Neuro: Denies: headache(s) Psych: Denies: depression Hector/Lymph: Denies: easy bruising All/Imm: Denies: urticaria PFSH ED PFSH: Medical History Bilateral carotid artery stenosis without cerebral infarction Cervical disc disorder with myelopathy of mid-cervical region Chronic bronchitis Closed head injury GERD (gastroesophageal reflux disease) HX: breast cancer ER SC negative, 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 status post radiation therapy and hormonal therapy, currently on Femara Hyperlipidemia 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 disc disorder 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 region 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 Lumbar stenosis without neurogenic claudication Pain management contract signed Spondylolisthesis of cervical region 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 (cerebrum) Hx of stroke in February 07, 2019 Surgical History H/O total hip arthroplasty Right History of cholecystectomy History of hysterectomy / BSO / appendectomy History of left breast biopsy Port-A-Cath in place 04/16/20 Status post carotid endarterectomy Social History Smoking and tobacco status: never smoked Alcohol intake: never Lives independently: Yes Household members: spouse Marital status: Current occupational status: retired Physical Exam Const: COMMON NORMALS: no acute distress, patient oriented x3 and healthy appearing HENMT: COMMON NORMALS: normocephalic and atraumatic HEAD & SCALP: normocephalic and atraumatic Eye: COMMON NORMALS: Equal, round and reactive pupils present and EOMs intact bilaterally PUPIL: Yes Equal, round and reactive pupils present Neck/C-Spine: COMMON NORMALS: full ROM and supple Chest: COMMONS NORMALS: normal inspection of the chest and normal palpation of entire chest wall Resp: COMMON NORMALS: normal respiratory effort, No retractions, No use of accessory muscles and clear to auscultation bilaterally AUSCULTATION: clear to auscultation bilaterally Cardio: COMMON NORMALS: regular rate, regular rhythm and No murmurs present (Cardio) RATE: regular rate RHYTHM: regular rhythm GI: COMMON NORMALS: Normal to inspection, nondistended, normoactive bowel sounds present, Soft to palpation and no masses PALPATION: Yes Soft to palpation OTHER: diffuse tenderness Extremity: COMMON NORMALS: normal to inspection and full ROM Neuro: COMMON NORMALS: patient oriented x3, moves all extremities and no focal motor deficits Psych: COMMON NORMALS: mental status grossly normal, Normal thought process present and cooperative THOUGHT PROCESS: Normal thought process present Skin: COMMON NORMALS: no rashes or lesions noted and no wounds GENERAL SKIN EXAM: no rashes or lesions noted Course Vital Signs: Vital signs: Vital Signs Temperature 98.2 F 12/22/22 03:53 Pulse Rate 71 12/22/22 07:55 Respiratory Rate 18 12/22/22 07:55 Blood Pressure 178/73 12/22/22 07:55 Pulse Oximetry 97 12/22/22 07:55 Oxygen Delivery Me thod 12/22/22 07:54 MDM - Abdominal Pain Lab Data 12/22/22 03:58 12/22/22 03:58 Labs/Radiology: Radiology Impressions Abdomen/Pelvis CT 12/22/22 04:00 IMPRESSION: 1. Interval development of ttpd-gf-uwjarhnc right hydronephrosis and ureterectasis with a right ureterovesicular junction 0.7 x 0.5 x 0.8 cm calculus (series 5, image 69 and series 10, image 33)-at the level of the hip joint. 2. Stomach not well distended. Unchanged mild to moderate gastric and proximal duodenal fold prominence/thickening. Moderate constipation. Unchanged mild descending and moderate to severe sigmoid colonic diverticulosis, without CT evidence of diverticulitis. 3. Status post prior cholecystectomy with unchanged dilated extrahepatic/common bile duct. 4. Unchanged punctate subpleural bilateral lung nodules. Laboratory Results WBC 8.3 10^3/uL (4.0-10.0) 12/22/22 03:58 RBC 5.07 10^6/uL (4.1-5.3) 12/22/22 03:58 Hgb 15.2 g/dL (11.5-15.3) 12/22/22 03:58 Hct 46.7 % (37.0-47.0) 12/22/22 03:58 MCV 92.1 fl (81-99) 12/22/22 03:58 MCH 30.0 pg (28.0-34.0) 12/22/22 03:58 MCHC 32.5 g/dL (30.0-36.0) 12/22/22 03:58 RDW 13.6 % (12.1-15.1) 12/22/22 03:58 Plt Count 233 10^3/cmm (130-400) 12/22/22 03:58 MPV 8.9 fL (7.4-10.4) 12/22/22 03:58 Neut % (Auto) 54.7 % 12/22/22 03:58 Lymph % (Auto) 31.0 % 12/22/22 03:58 Blount % (Auto) 10.5 % 12/22/22 03:58 Eos % (Auto) 2.7 % 12/22/22 03:58 Baso % (Auto) 1.1 % 12/22/22 03:58 Neut # (Auto) 4.53 10^3/uL (1.8-7.7) 12/22/22 03:58 Lymph # (Auto) 2.6 10^3/uL (0.8-4.8) 12/22/22 03:58 Blount # (Auto) 0.9 10^3/uL (0.2-0.9) 12/22/22 03:58 Eos # (Auto) 0.2 10^3/uL (0.0-0.8) 12/22/22 03:58 Baso # (Auto) 0.1 10^3/uL (0.0-0.1) 12/22/22 03:58 Nucleated RBC % (auto) 0 % 12/22/22 03:58 Nucleated RBCs # 0.0 /100WBC 12/22/22 03:58 Sodium 139 mmol/L (136-145) 12/22/22 03:58 Potassium 3.9 mmol/L (3.5-5.1) 12/22/22 03:58 Chloride 101 mmol/L (98-107) 12/22/22 03:58 Carbon Dioxide 26 mmol/L (22-29) 12/22/22 03:58 Anion Gap 15.9 (5-19) 12/22/22 03:58 BUN 15 mg/dL (8-23) 12/22/22 03:58 Creatinine 0.7 mg/dL (0.5-0.9) 12/22/22 03:58 GFR Calculation Not Reportable 12/22/22 03:58 Glucose 91 mg/dL (65-115) 12/22/22 03:58 Calculated Osmolality 288 mOsm/kg (285-295) 12/22/22 03:58 Calcium 10.3 mg/dL (8.5-10.5) 12/22/22 03:58 Total Bilirubin 0.4 mg/dL (0.15-1.2) 12/22/22 03:58 AST 32 U/L (0-32) 12/22/22 03:58 ALT 24 U/L (0-33) 12/22/22 03:58 Alkaline Phosphatase 116 U/L (35-105) H 12/22/22 03:58 Total Protein 7.8 g/dL (6.6-8.7) 12/22/22 03:58 Albumin 4.3 g/dL (3.5-5.2) 12/22/22 03:58 Globulin 3.5 g/dL (1.3-4.6) 12/22/22 03:58 Lipase 16 U/L (13-60) 12/22/22 03:58 Urine Color Yellow (Yellow) 12/22/22 04:06 Urine Appearance Clear (CLEAR) 12/22/22 04:06 Urine pH 8 (5-7) H 12/22/22 04:06 Ur Specific [place] 1.015 (1.005-1.030) 12/22/22 04:06 Urine Protein Neg (Negative) 12/22/22 04:06 Urine Glucose (UA) Norm (Normal) 12/22/22 04:06 Urine Ketones Negative (Negative) 12/22/22 04:06 Urine Blood Neg (Negative) 12/22/22 04:06 Urine Nitrate Negative (Negative) 12/22/22 04:06 Urine Bilirubin Neg (Negative) 12/22/22 04:06 Prot Sulfosalicylic Acd Negative (Negative) 12/22/22 04:06 Urine Urobilinogen Neg mg/dL (Negative) 12/22/22 04:06 Ur Leukocyte Esterase Negative (Negative) 12/22/22 04:06 Discharge Plan Discharge Patient Disposition: Home Clinical Impression: Right nephrolithiasis, Constipation Condition: Stable Prescriptions: New hydrocodone-acetaminophen 5-325 mg tablet 1 tab PO Q6H PRN (Reason: pain) Qty: 20 0RF lactulose 20 gram/30 mL solution 30 g PO Q2H 1 Days Qty: 540 0RF Rx Instructions: until desired laxative effect tamsulosin [Flomax] 0.4 mg capsule 0.4 mg PO DAILY Qty: 20 0RF ondansetron HCl 4 mg tablet 4 mg PO Q6H PRN (Reason: nausea and vomiting) Qty: 20 0RF No Action acetaminophen [Tylenol Extra Strength] 500 mg tablet 500 mg PO Q6H PRN (Reason: pain) pantoprazole 40 mg tablet,delayed release (DR/EC) 40 mg PO BID Qty: 180 1RF ipratropium bromide 21 mcg (0.03 %) spray,non-aerosol 2 spray intranasal TID PRN (Reason: Allergy Symptoms) Qty: 30 3RF Rx Instructions: USE 2 SPRAY(S) IN EACH NOSTRIL THREE TIMES DAILY multivitamin Tablet 1 tab PO DAILY Alphagan P 0.1 % drops 1 drp ophthalmic (eye) BID Rx Instructions: BOTH EYES carboxymethylcellulose sodium [Refresh Tears] 0.5 % Drops 1 drp OPHTHALMIC (EYE) BEDTIME Calcarb 600 With Vitamin D 600 mg-10 mcg (400 unit) Tablet 1 tab PO DAILY PreserVision AREDS-2 250-90-40-1 mg Capsule 1 tab PO BID potassium citrate 99 mg Capsule 99 mg PO DAILY promethazine 12.5 mg tablet 12.5 mg PO Q6H PRN (Reason: nausea and vomiting) Qty: 20 0RF Rx Instructions: 3 doses during day; last dose no later than 4 hr before bedtime Discharge Orders: Discharge ED (Routine); Ordered 12/22/22 Ordered By: Parmjit Ovalle Discharge Diet: Usual diet Discharge Activity: Resume usual activity Patient Instructions: Opioid Safety, Pain Management Activity Restrictions/Additional Instructions: You are seen today for abdominal pain. You have a large right kidney stone that is unlikely to pass. Given pain and nausea medications as well as tamsulosin to help relieve the discomfort. Case management will help make arrangements to see Dr. Cat tomorrow just make plans for definitive care for the stone. You are also complaining of constipation recommend use lactulose every 2 hours until adequate results are achieved. Sign Out Sign Out Data: Patient Sign Out occurred on 12/22/22 at 06:03. Patient's care was discussed, and care was transferred from to Parmjit Ovalle DO. 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 status post radiation therapy and hormonal therapy, currently on Femara Hyperlipidemia 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 disc disorder 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 region 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 Lumbar stenosis without neurogenic claudication Pain management contract signed Spondylolisthesis of cervical region 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 (cerebrum) Hx of stroke in February 07, 2019 Surgical History H/O total hip arthroplasty Right History of cholecystectomy History of hysterectomy / BSO / appendectomy History of left breast biopsy Port-A-Cath in place 04/16/20 Status post carotid endarterectomy Social History Smoking and tobacco status: never smoked Alcohol intake: never Lives independently: Yes Household members: spouse Marital status: Current occupational status: retired Course Vital Signs: Vital signs: Vital Signs Temperature 98.2 F 12/22/22 03:53 Pulse Rate 71 12/22/22 07:55 Respiratory Rate 18 12/22/22 07:55 Blood Pressure 178/73 12/22/22 07:55 Pulse Oximetry 97 12/22/22 07:55 Oxygen Delivery Me thod 12/22/22 07:54 MDM - Abdominal Pain Medical Decision Making Patient's pain is well controlled she would prefer to go home she has a UVJ stone 7 x 8 x 5 mm with mild hydronephrosis but no compromise of her kidney function. The remainder of her abdomen CT is unremarkable. There is no diverticulitis no sign of perforation or bleeding colitis or pancreatitis. Patient can be discharged home at this point I discussed with Dr. Cat he will follow-up at the office at some point she will either need a stent or lithotripsy she is asked to strain urine to monitor for stone although it is unlikely at this point that the stone of that size will pass. Case management eugene adamson arrangements for her to see urology. Return if is poor pain control. Medical Records I reviewed the patient's medical records. Lab Data I reviewed the patient's lab results. 12/22/22 03:58 12/22/22 03:58 Labs/Radiology: Radiology Impressions Abdomen/Pelvis CT 12/22/22 04:00 IMPRESSION: 1. Interval development of nxbj-wf-qpqnpfty right hydronephrosis and ureterectasis with a right ureterovesicular junction 0.7 x 0.5 x 0.8 cm calculus (series 5, image 69 and series 10, image 33)-at the level of the hip joint. 2. Stomach not well distended. Unchanged mild to moderate gastric and proximal duodenal fold prominence/thickening. Moderate constipation. Unchanged mild descending and moderate to severe sigmoid colonic diverticulosis, without CT evidence of diverticulitis. 3. Status post prior cholecystectomy with unchanged dilated extrahepatic/common bile duct. 4. Unchanged punctate subpleural bilateral lung nodules. Laboratory Results WBC 8.3 10^3/uL (4.0-10.0) 12/22/22 03:58 RBC 5.07 10^6/uL (4.1-5.3) 12/22/22 03:58 Hgb 15.2 g/dL (11.5-15.3) 12/22/22 03:58 Hct 46.7 % (37.0-47.0) 12/22/22 03:58 MCV 92.1 fl (81-99) 12/22/22 03:58 MCH 30.0 pg (28.0-34.0) 12/22/22 03:58 MCHC 32.5 g/dL (30.0-36.0) 12/22/22 03:58 RDW 13.6 % (12.1-15.1) 12/22/22 03:58 Plt Count 233 10^3/cmm (130-400) 12/22/22 03:58 MPV 8.9 fL (7.4-10.4) 12/22/22 03:58 Neut % (Auto) 54.7 % 12/22/22 03:58 Lymph % (Auto) 31.0 % 12/22/22 03:58 Blount % (Auto) 10.5 % 12/22/22 03:58 Eos % (Auto) 2.7 % 12/22/22 03:58 Baso % (Auto) 1.1 % 12/22/22 03:58 Neut # (Auto) 4.53 10^3/uL (1.8-7.7) 12/22/22 03:58 Lymph # (Auto) 2.6 10^3/uL (0.8-4.8) 12/22/22 03:58 Blount # (Auto) 0.9 10^3/uL (0.2-0.9) 12/22/22 03:58 Eos # (Auto) 0.2 10^3/uL (0.0-0.8) 12/22/22 03:58 Baso # (Auto) 0.1 10^3/uL (0.0-0.1) 12/22/22 03:58 Nucleated RBC % (auto) 0 % 12/22/22 03:58 Nucleated RBCs # 0.0 /100WBC 12/22/22 03:58 Sodium 139 mmol/L (136-145) 12/22/22 03:58 Potassium 3.9 mmol/L (3.5-5.1) 12/22/22 03:58 Chloride 101 mmol/L (98-107) 12/22/22 03:58 Carbon Dioxide 26 mmol/L (22-29) 12/22/22 03:58 Anion Gap 15.9 (5-19) 12/22/22 03:58 BUN 15 mg/dL (8-23) 12/22/22 03:58 Creatinine 0.7 mg/dL (0.5-0.9) 12/22/22 03:58 GFR Calculation Not Reportable 12/22/22 03:58 Glucose 91 mg/dL (65-115) 12/22/22 03:58 Calculated Osmolality 288 mOsm/kg (285-295) 12/22/22 03:58 Calcium 10.3 mg/dL (8.5-10.5) 12/22/22 03:58 Total Bilirubin 0.4 mg/dL (0.15-1.2) 12/22/22 03:58 AST 32 U/L (0-32) 12/22/22 03:58 ALT 24 U/L (0-33) 12/22/22 03:58 Alkaline Phosphatase 116 U/L (35-105) H 12/22/22 03:58 Total Protein 7.8 g/dL (6.6-8.7) 12/22/22 03:58 Albumin 4.3 g/dL (3.5-5.2) 12/22/22 03:58 Globulin 3.5 g/dL (1.3-4.6) 12/22/22 03:58 Lipase 16 U/L (13-60) 12/22/22 03:58 Urine Color Yellow (Yellow) 12/22/22 04:06 Urine Appearance Clear (CLEAR) 12/22/22 04:06 Urine pH 8 (5-7) H 12/22/22 04:06 Ur Specific [place] 1.015 (1.005-1.030) 12/22/22 04:06 Urine Protein Neg (Negative) 12/22/22 04:06 Urine Glucose (UA) Norm (Normal) 12/22/22 04:06 Urine Ketones Negative (Negative) 12/22/22 04:06 Urine Blood Neg (Negative) 12/22/22 04:06 Urine Nitrate Negative (Negative) 12/22/22 04:06 Urine Bilirubin Neg (Negative) 12/22/22 04:06 Prot Sulfosalicylic Acd Negative (Negative) 12/22/22 04:06 Urine Urobilinogen Neg mg/dL (Negative) 12/22/22 04:06 Ur Leukocyte Esterase Negative (Negative) 12/22/22 04:06 Discharge Plan Discharge Patient Disposition: Home Clinical Impression: Right nephrolithiasis, Constipation Condition: Stable Prescriptions: New hydrocodone-acetaminophen 5-325 mg tablet 1 tab PO Q6H PRN (Reason: pain) Qty: 20 0RF lactulose 20 gram/30 mL solution 30 g PO Q2H 1 Days Qty: 540 0RF Rx Instructions: until desired laxative effect tamsulosin [Flomax] 0.4 mg capsule 0.4 mg PO DAILY Qty: 20 0RF ondansetron HCl 4 mg tablet 4 mg PO Q6H PRN (Reason: nausea and vomiting) Qty: 20 0RF No Action acetaminophen [Tylenol Extra Strength] 500 mg tablet 500 mg PO Q6H PRN (Reason: pain) pantoprazole 40 mg tablet,delayed release (DR/EC) 40 mg PO BID Qty: 180 1RF ipratropium bromide 21 mcg (0.03 %) spray,non-aerosol 2 spray intranasal TID PRN (Reason: Allergy Symptoms) Qty: 30 3RF Rx Instructions: USE 2 SPRAY(S) IN EACH NOSTRIL THREE TIMES DAILY multivitamin Tablet 1 tab PO DAILY Alphagan P 0.1 % drops 1 drp ophthalmic (eye) BID Rx Instructions: BOTH EYES carboxymethylcellulose sodium [Refresh Tears] 0.5 % Drops 1 drp OPHTHALMIC (EYE) BEDTIME Calcarb 600 With Vitamin D 600 mg-10 mcg (400 unit) Tablet 1 tab PO DAILY PreserVision AREDS-2 250-90-40-1 mg Capsule 1 tab PO BID potassium citrate 99 mg Capsule 99 mg PO DAILY promethazine 12.5 mg tablet 12.5 mg PO Q6H PRN (Reason: nausea and vomiting) Qty: 20 0RF Rx Instructions: 3 doses during day; last dose no later than 4 hr before bedtime Discharge Orders: Discharge ED (Routine); Ordered 12/22/22 Ordered By: Parmjit Ovalle Discharge Diet: Usual diet Discharge Activity: Resume usual activity Patient Instructions: Opioid Safety, Pain Management Activity Restrictions/Additional Instructions: You are seen today for abdominal pain. You have a large right kidney stone that is unlikely to pass. Given pain and nausea medications as well as tamsulosin to help relieve the discomfort. Case management will help make arrangements to see Dr. Cat tomorrow just make plans for definitive care for the stone. You are also complaining of constipation recommend use lactulose every 2 hours until adequate results are achieved. Sign Out Sign Out Data: Patient Sign Out occurred on 12/22/22 at 06:03. Patient's care was discussed, and care was transferred from to Parmjit Oavlle DO. Coding Level of Care Code ED Joinery Setter Out for Hardy Enriquez
[2022-12-22 04:06] LABS: Basophils # 0.1 10^3/uL (0.0-0.1); Basophils % 1.1 %; Eosinophils # 0.2 10^3/uL (0.0-0.8); Eosinophils % 2.7 %; Hematocrit 46.7 % (37.0-47.0); Hemoglobin 15.2 g/dL (11.5-15.3); Lymphocytes # 2.6 10^3/uL (0.8-4.8); Mean Corpuscular HGB Conc 32.5 g/dL (30.0-36.0); Mean Corpuscular Volume 92.1 fl (81-99); Mean Platelet Volume 8.9 fL (7.4-10.4); Monocytes # 0.9 10^3/uL (0.2-0.9); Monocytes % 10.5 %; Neutrophils # 4.53 10^3/uL (1.8-7.7); Neutrophils % 54.7 %; Nucleated Red Blood Cells % 0 %; Platelet Count 233 10^3/cmm (130-400); Red Blood Count 5.07 10^6/uL (4.1-5.3); Red Cell Distribution Width 13.6 % (12.1-15.1); White Blood Count 8.3 10^3/uL (4.0-10.0)
[2022-12-22 04:21] VITALS: RESP 16
[2022-12-22] MEDS: morphine 4 mg/mL SDV 1 mL IVP (04:21)
[2022-12-22] MEDS: ondansetron 2 mg/ML SDV 2 mL 4 MG IVP (04:21)
[2022-12-22] MEDS: sodium chloride 0.9% 1,000 ML 999 ML IV (04:22)
[2022-12-22 04:23] LABS: Add Urine Microscopic? NO; Charge for UA Resulting for Rev
[2022-12-22 04:24] LABS: Alanine Aminotransferase 24 U/L (0-33); Albumin Level 4.3 g/dL (3.5-5.2); Alkaline Phosphatase 116 U/L (35-105); Blood Urea Nitrogen 15 mg/dL (8-23); Calcium 10.3 mg/dL (8.5-10.5); Carbon Dioxide 26 mmol/L (22-29); Chloride 101 mmol/L (98-107); Globulin 3.5 g/dL (1.3-4.6); Glucose 91 mg/dL (65-115); Lipase 16 U/L (13-60); Osmolality Calculated 288 mOsm/kg (285-295); Sodium 139 mmol/L (136-145); Total Bilirubin 0.4 mg/dL (0.15-1.2); Total Protein 7.8 g/dL (6.6-8.7)
[2022-12-22 04:25] LABS: Bilirubin Urine Neg (Negative); Blood Urine Neg (Negative); Glucose Urine UA Norm (Normal); Ketones Urine Negative (Negative); Nitrate Urine Negative (Negative); Protein Urine Neg (Negative); Specific Gravity, Urine 1.015 (1.005-1.030); Sulfosalicylic Acid Urine Negative (Negative); Urine Appearance Clear (CLEAR); Urine Color Yellow (Yellow); pH Urine 8 (5-7)
[2022-12-22 04:26] LABS: Leukocyte Esterase Urine Negative (Negative); Urobilinogen Urine Neg (Negative)
[2022-12-22 04:29] VITALS: BP 199/90; PULSE 75; RESP 16; O2SAT 100
[2022-12-22 04:29] LABS: Anion Gap 15.9 (5-19); Aspartate Amino Transferase 32 U/L (0-32); Potassium 3.9 mmol/L (3.5-5.1)
[2022-12-22] MEDS: iohexol 350 mg/mL 500 mL Btl (per mL) IV (04:54)
[2022-12-22 06:34] VITALS: BP 198/100; PULSE 81; RESP 16; O2SAT 99
[2022-12-22 07:54] VITALS: BP 178/73; PULSE 71; RESP 18; O2SAT 97
[2022-12-22 07:55] VITALS: BP 178/73; PULSE 71; RESP 18; O2SAT 97
--- NOTE | 2022-12-22 13:15 | DCPLANNER ---
Addendum entered by Linsey Roche 01/07/23 08:41: Patient had a follow up appointment scheduled with urology - patient did not attend appointment. Original Note: manager sales support had message to schedule a follow up appointment for patient with urology. manager sales support sent patients information to the front office staff at urology. Patients information will be printed and reviewed. Clinic will call patient with appointment information.
== END 2022-12-22 07:57 | disposition home or self-care (01) ==
PROVIDERS: Emergency Medicine; Emergency Provider Family Medicine
DX: N13.2 Hydronephrosis with renal and ureteral calculous obstruction (principal); K59.00 Constipation, unspecified; Z85.3 Personal history of malignant neoplasm of breast; E78.5 Hyperlipidemia, unspecified; Z86.73 Personal history of transient ischemic attack (TIA), and cerebral infarction without residual deficits; R10.9 Unspecified abdominal pain; R30.9 Painful micturition, unspecified; R11.2 Nausea with vomiting, unspecified
CPT/HCPCS: 74177; 80053; 81003; 83690; 85025; 93005; 96361; 96372; 96374; 96375; 99284; 99285; J2270; J2405; J2550; J7030; Q9967

== ENCOUNTER 2022-12-22 11:22 | Emergency (ER) | payer MEDICARE, OTHER, SELFPAY ==
[2022-12-22] VITALS (7 sets, daily range): BP systolic 124–165; BP diastolic 72–102; PULSE 80; RESP 17; TEMP 36.2; O2SAT 94–97; BMI 30.2
--- NOTE | 2022-12-22 13:08 | W.ED.GENADLT ---
HPI - General Adult General: Chief complaint: General Medical Stated complaint: N/V/AMS Time Seen by Provider: 12/22/22 11:33 Source: patient Mode of arrival: EMS History of Present Illness: 77-year-old female seen earlier this morning with abdominal discomfort nausea vomiting it resolved she is feeling much better given her morphine for pain she is found to have a renal stone at the right UPJ 7 x 8 x 5 mm. She was discharged home with good pain control she went home according to the daughter she took a dose of lactulose for constipation tannish-yellow Sau[place]a and ondansetron threw up once and they called the ambulance there is no hematochezia or melena. She not had any fevers or chills patient is reporting being pain-free at this time her only complaint is that she is very cold and wants something to eat. Associated symptoms: Reports nausea and vomiting; Deny chest pain, confusion, cough, dyspnea, fevers/chills, headache(s), malaise, rash, short of breath or syncope Review of Systems Const: Denies: fever(s), chills, body aches, change in appetite, fatigue or malaise ENMT: Denies: throat pain, ear or mastoid pain, nasal discharge or nasal congestion Card: Denies: chest pain or syncope Resp: Denies: dyspnea GI: Reports: nausea and vomiting; Denies: abdominal pain : Denies: flank pain, difficulty voiding, dysuria, urinary frequency or urinary urgency Skin/Breast: Denies: rash or pruritus Neuro: Denies: headache(s) or confusion PFS ED PFSH: Medical History Bilateral carotid artery stenosis without cerebral infarction Cervical disc disorder with myelopathy of mid-cervical region Chronic bronchitis Closed head injury GERD (gastroesophageal reflux disease) HX: breast cancer ER [place] negative, 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 status post radiation therapy and hormonal therapy, currently on Femara Hyperlipidemia 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 disc disorder 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 region 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 Lumbar stenosis without neurogenic claudication Pain management contract signed Spondylolisthesis of cervical region 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 (cerebrum) Hx of stroke in February 07, 2019 Surgical History H/O total hip arthroplasty Right History of cholecystectomy History of hysterectomy / BSO / appendectomy History of left breast biopsy Port-A-Cath in place 04/16/20 Status post carotid endarterectomy Social History Smoking and tobacco status: never smoked Alcohol intake: never Lives independently: Yes Household members: spouse Marital status: Current occupational status: retired Physical Exam Const: GENERAL APPEARANCE: cooperative and comfortable ORIENTATION/CONSCIOUSNESS: Yes awake HENMT: COMMON NORMALS: normocephalic, atraumatic and hearing grossly normal bilaterally HEAD & SCALP: normocephalic and atraumatic Resp: COMMON NORMALS: normal respiratory effort, No retractions, No use of accessory muscles and clear to auscultation bilaterally AUSCULTATION: clear to auscultation bilaterally Cardio: COMMON NORMALS: regular rate, regular rhythm and No murmurs present (Cardio) RATE: regular rate RHYTHM: regular rhythm GI: COMMON NORMALS: Soft to palpation and No hepatosplenomegaly present AUSCULTATION: Yes normoactive bowel sounds PALPATION: Yes Soft to palpation, No Tenderness to palpation present (GI), No Guarding due to palpation present (GI) and Yes No hepatosplenomegaly present Extremity: COMMON NORMALS: normal to inspection, capillary refill normal, no clubbing, cyanosis or edema, no calf tenderness and no pedal edema Skin: COMMON NORMALS: no rashes or lesions noted GENERAL SKIN EXAM: no rashes or lesions noted Course Vital Signs: Vital signs: Vital Signs Temperature 97.1 F L 12/22/22 11:29 Pulse Rate 80 12/22/22 11:29 Respiratory Rate 17 12/22/22 11:29 Blood Pressure 161/81 12/22/22 13:15 Pulse Oximetry 95 12/22/22 13:15 Oxygen Delivery Me thod 12/22/22 11:29 MDM - General Adult Medical Decision Making Patient returns because of another episode of vomiting at home after arrival here she was observed were able to have her eat and drink without any difficulty we will discharge patient home decrease her lactulose use to half of the previously prescribed dose for relief of constipation continue her other medications gave her promethazine to use instead of ondansetron follow-up with urology as previously recommended. Medical Records I reviewed the patient's medical records. Lab Data I reviewed the patient's lab results. Discharge Plan Discharge Patient Disposition: Home Clinical Impression: Acute vomiting, Right nephrolithiasis, Constipation Condition: Stable Prescriptions: New promethazine 12.5 mg tablet 12.5 mg PO Q6H PRN (Reason: nausea and vomiting) Qty: 20 0RF Rx Instructions: 3 doses during day; last dose no later than 4 hr before bedtime No Action acetaminophen [Tylenol Extra Strength] 500 mg tablet 500 mg PO Q6H PRN (Reason: pain) pantoprazole 40 mg tablet,delayed release (DR/EC) 40 mg PO BID Qty: 180 1RF ipratropium bromide 21 mcg (0.03 %) spray,non-aerosol 2 spray intranasal TID PRN (Reason: Allergy Symptoms) Qty: 30 3RF Rx Instructions: USE 2 SPRAY(S) IN EACH NOSTRIL THREE TIMES DAILY multivitamin Tablet 1 tab PO DAILY Alphagan P 0.1 % drops 1 drp ophthalmic (eye) BID Rx Instructions: BOTH EYES cephalexin 500 mg capsule 500 mg PO TID 7 Days Qty: 21 0RF carboxymethylcellulose sodium [Refresh Tears] 0.5 % Drops 1 drp OPHTHALMIC (EYE) BEDTIME hydrocodone-acetaminophen 5-325 mg tablet 1 tab PO Q6H PRN (Reason: pain) Qty: 20 0RF tamsulosin [Flomax] 0.4 mg capsule 0.4 mg PO DAILY Qty: 20 0RF ondansetron HCl 4 mg tablet 4 mg PO Q6H PRN (Reason: nausea and vomiting) Qty: 20 0RF Calcarb 600 With Vitamin D 600 mg-10 mcg (400 unit) Tablet 1 tab PO DAILY PreserVision AREDS-2 250-90-40-1 mg Capsule 1 tab PO BID potassium citrate 99 mg Capsule 99 mg PO DAILY Discharge Orders: Discharge ED (Routine); Ordered 12/22/22 Ordered By: Parmjit Ovalle Discharge Diet: Usual diet Discharge Activity: Resume usual activity Patient Instructions: Opioid Safety, Pain Management Activity Restrictions/Additional Instructions: Here were seen today after an episode of vomiting at home. You are able to eat and drink here without difficulty after receiving promethazine. You are given a prescription for promethazine to use instead of ondansetron. In addition to that recommend that you use half-strength doses of the lactulose given to you earlier for constipation. Coding Level of Care Code ED Commercial Tire Service Technician for Hardy Enriquez
[2022-12-22] MEDS: promethazine 25 mg/mL SDV 1 mL 12.5 MG IM (13:11)
== END 2022-12-22 14:58 | disposition home or self-care (01) ==
PROVIDERS: Emergency Provider Family Medicine
DX: N20.0 Calculus of kidney (principal); K59.00 Constipation, unspecified; R11.11 Vomiting without nausea; Z85.3 Personal history of malignant neoplasm of breast; E78.5 Hyperlipidemia, unspecified; Z86.73 Personal history of transient ischemic attack (TIA), and cerebral infarction without residual deficits
CPT/HCPCS: 96372; 99284; J2550

== ENCOUNTER 2022-12-23 01:17 | Emergency (ER) | payer MEDICARE, OTHER, SELFPAY ==
[2022-12-23] VITALS (7 sets, daily range): BP systolic 130–178; BP diastolic 62–96; PULSE 91–98; RESP 16; TEMP 36.6; O2SAT 95–99
--- NOTE | 2022-12-23 01:20 | XRR_ITS ---
PROCEDURE INFORMATION: Exam: XR Chest Exam date and time: 12/23/2022 1:25 AM Age: 77 years old Clinical indication: Injury or trauma; Blunt trauma (contusions or hematomas); Prior surgery; Surgery type: Port; Patient HX: Arrival via EMS for fall at home with headstrike. Patient acting very confused. History of breast cancer. ; Additional info: AMS TECHNIQUE: Imaging protocol: Radiologic exam of the chest. Views: 1 view. COMPARISON: CT chest abdpel w/*[id number] 12/22/2022 4:52 AM FINDINGS: Lungs: Unremarkable. No consolidation. Pleural spaces: Unremarkable. No pleural effusion. No pneumothorax. Heart/Mediastinum: Unremarkable. No cardiomegaly. Bones/joints: Unremarkable. XR/XR chest 1V portable [id number] IMPRESSION: No acute findings.
--- NOTE | 2022-12-23 01:26 | CTR_ITS ---
PROCEDURE INFORMATION: Exam: CT Head Without Contrast Exam date and time: 12/23/2022 1:41 AM Age: 77 years old Clinical indication: Injury or trauma; Blunt trauma (contusions or hematomas); Altered mental status/memory loss; Confusion or disorientation; Patient HX: Arrival via EMS for fall at home with head strike. Patient acting very confused. ; Additional info: AMS TECHNIQUE: Imaging protocol: Computed tomography of the head without contrast. Radiation optimization: All CT scans at this facility use at least one of these dose optimization techniques: automated exposure control; mA and/or kV adjustment per patient size (includes targeted exams where dose is matched to clinical indication); or iterative reconstruction. REPORTING DATA: Count of CT and Cardiac NM exams in prior 12 months: This patient has received 6 known CTs and 0 known cardiac nuclear medicine studies in the 12 months prior to the current study. COMPARISON: CT head wo con* [id number] 08/19/2022 4:06 PM RADIATION DOSE METRICS: Total DLP (mGy-cm): 623.87 FINDINGS: Brain: There is marked cerebral atrophy. There is marked diffuse heterogeneity of the white matter attenuation, consistent with severe chronic white matter ischemic changes. Negative for intracranial hemorrhage. Negative for intracranial mass. Negative for midline shift of the brain. Waite matter and white matter interfaces are preserved. Cerebral ventricles: No ventriculomegaly. Paranasal sinuses: Visualized sinuses are unremarkable. No fluid levels. Mastoid air cells: Visualized mastoid air cells are well aerated. Bones/joints: Unremarkable. No acute fracture. Soft tissues: Unremarkable. CT/CT head wo con* [id number] IMPRESSION: Negative for acute intracranial abnormality.
--- NOTE | 2022-12-23 01:26 | CTR_ITS ---
PROCEDURE INFORMATION: Exam: CT Abdomen And Pelvis Without Contrast Exam date and time: 12/23/2022 1:45 AM Age: 77 years old Clinical indication: Nausea and vomiting; Prior surgery; Surgery type: Gb. Hysterectomy. Bilat alfreda. Patient HX: N/v. Diagnosed with nephrolithiasis yesterday from CT performed 12/22/2022. ; Additional info: Kidney stone TECHNIQUE: Imaging protocol: Computed tomography of the abdomen and pelvis without contrast. Radiation optimization: All CT scans at this facility use at least one of these dose optimization techniques: automated exposure control; mA and/or kV adjustment per patient size (includes targeted exams where dose is matched to clinical indication); or iterative reconstruction. REPORTING DATA: Count of CT and Cardiac NM exams in prior 12 months: This patient has received 6 known CTs and 0 known cardiac nuclear medicine studies in the 12 months prior to the current study. COMPARISON: 1. CT abdomen pelvis w con* [id number] 12/22/2022 4:[address] abdomen pelvis w con* [id number] 09/30/2020 7:35 AM RADIATION DOSE METRICS: Total DLP (mGy-cm): 457.02 FINDINGS: Liver: Normal. No mass. Gallbladder and bile ducts: Cholecystectomy. Nondilated biliary system. Pancreas: Normal. No ductal dilation. Spleen: Normal. No splenomegaly. Adrenal glands: Normal. No mass. Kidneys and ureters: Negative for nephrolithiasis. Negative for perinephric inflammation. Negative for hydroureteronephrosis. Bilateral collecting system is less distended than comparison. Stomach and bowel: Unremarkable. No obstruction. No mucosal thickening. Appendix: No evidence of appendicitis. Intraperitoneal space: Unremarkable. No free air. No significant fluid collection. Vasculature: Calcifications bilaterally in the pelvis are unchanged from recent comparison. Largest left pelvic calcification was present on 09/30/2020 comparison and could represent vascular phleboliths or chronically impacted distal ureteral stone. Lymph nodes: Unremarkable. No enlarged lymph nodes. Urinary bladder: Unremarkable bladder. Reproductive: Hysterectomy. Bones/joints: Bilateral hip arthroplasty is present. Streak artifact from the arthroplasty limits evaluation of the pelvic structures. The lumbar spine demonstrates marked discogenic and apophyseal joint degenerative changes at multiple levels. Soft tissues: Small fat containing left inguinal hernia. CT/CT kidney stone [id number] IMPRESSION: 1. No acute abdominopelvic pathology is identified. 2. Uncertain if ureteral stones are present versus vascular phleboliths in the pelvis. Streak artifact from the hip arthroplasties distorts the imaging. 3. Decreased distention of the renal collecting system since comparison.
--- NOTE | 2022-12-23 01:39 | W.ED.AMS ---
HPI - Altered Mental Status General: Chief Complaint: Altered Mental Status Stated Complaint: AMS, N/V Time Seen by Provider: 12/23/22 01:19 Source: EMS Mode of arrival: EMS Limitations: altered mental status History of Present Illness: 77-year-old female who came in tonight because she was confused when she arrives here she is able answer most my questions appropriately she is confused on the date she states that she is feels that she is not thinking right currently she denies any pain denies any fever denies any headache. 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 Lumbar stenosis without neurogenic claudication Pain management contract signed Spondylolisthesis of cervical region 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 (cerebrum) Hx of stroke in February 07, 2019 Surgical History H/O total hip arthroplasty Right History of cholecystectomy History of hysterectomy / BSO / appendectomy History of left breast biopsy Port-A-Cath in place 04/16/20 Status post carotid endarterectomy Social History Smoking and tobacco status: never smoked Alcohol intake: never Lives independently: Yes Household members: spouse Marital status: Current occupational status: retired Physical Exam Const: COMMON NORMALS: negative for patient oriented x3 EXAM LIMITATIONS: altered mental status HENMT: COMMON NORMALS: normocephalic, atraumatic and Normal external nose present HEAD & SCALP: normocephalic and atraumatic NOSE: Normal external nose present Eye: COMMON NORMALS: conjunctivae normal CONJUNCTIVA: Yes conjunctivae normal Neck/C-Spine: COMMON NORMALS: full ROM and supple Chest: COMMONS NORMALS: normal inspection of the chest Resp: COMMON NORMALS: normal respiratory effort and clear to auscultation bilaterally EFFORT & INSPECTION: Yes able to speak in complete sentences AUSCULTATION: clear to auscultation bilaterally Cardio: COMMON NORMALS: regular rate and regular rhythm RATE: regular rate RHYTHM: regular rhythm GI: COMMON NORMALS: Normal to inspection, nondistended, normoactive bowel sounds present, Soft to palpation and non-tender PALPATION: Yes Soft to palpation Extremity: COMMON NORMALS: normal to inspection Neuro: COMMON NORMALS: negative for patient oriented x3 Psych: COMMON NORMALS: negative for mental status grossly normal Skin: COMMON NORMALS: no rashes or lesions noted GENERAL SKIN EXAM: no rashes or lesions noted Course Vital Signs: Vital signs: Vital Signs Temperature 97.9 F 12/23/22 01:33 Pulse Rate 96 12/23/22 04:30 Respiratory Rate 16 12/23/22 04:30 Blood Pressure 152/90 12/23/22 04:30 Pulse Oximetry 97 12/23/22 04:30 Oxygen Delivery Me thod 12/23/22 01:33 MDM - Altered Mental Status Medical Decision Making Patient presents here initially with altered mental status she is now awake and alert and able answer all my questions she is not altered here currently she is able answer all my questions appropriately she knows the date knows where she lives I did inform her she has a UTI and I recommended her to be admitted she states she does not like stay in the hospital and adamantly refuses being admitted CT scan does not show a kidney stone she is likely passed the kidney stone she wants to take antibiotics outpatient I will prescribe her them she is to follow-up with her PCP and return if worsening she understands agrees plan. Lab Data 12/23/22 02:30 12/23/22 02:30 Radiology Impressions Chest X-Ray 12/23/22 01:20 IMPRESSION: No acute findings. Abdomen/Pelvis CT 12/23/22 01:26 IMPRESSION: 1. No acute abdominopelvic pathology is identified. 2. Uncertain if ureteral stones are present versus vascular phleboliths in the pelvis. Streak artifact from the hip arthroplasties distorts the imaging. 3. Decreased distention of the renal collecting system since comparison. Head CT 12/23/22 01:26 IMPRESSION: Negative for acute intracranial abnormality. Laboratory Results WBC 10.8 10^3/uL (4.0-10.0) H 12/23/22 02:30 RBC 4.27 10^6/uL (4.1-5.3) 12/23/22 02:30 Hgb 12.9 g/dL (11.5-15.3) 12/23/22 02:30 Hct 40.6 % (37.0-47.0) 12/23/22 02:30 MCV 95.1 fl (81-99) 12/23/22 02:30 MCH 30.2 pg (28.0-34.0) 12/23/22 02:30 MCHC 31.8 g/dL (30.0-36.0) 12/23/22 02:30 RDW 14.2 % (12.1-15.1) 12/23/22 02:30 Plt Count 215 10^3/cmm (130-400) 12/23/22 02:30 MPV 9.3 fL (7.4-10.4) 12/23/22 02:30 Neut % (Auto) 77.7 % 12/23/22 02:30 Lymph % (Auto) 11.0 % 12/23/22 02:30 [place] % (Auto) 10.7 % 12/23/22 02:30 Eos % (Auto) 0.1 % 12/23/22 02:30 Baso % (Auto) 0.2 % 12/23/22 02:30 Neut # (Auto) 8.37 10^3/uL (1.8-7.7) H 12/23/22 02:30 Lymph # (Auto) 1.2 10^3/uL (0.8-4.8) 12/23/22 02:30 [place] # (Auto) 1.2 10^3/uL (0.2-0.9) H 12/23/22 02:30 Eos # (Auto) 0.0 10^3/uL (0.0-0.8) 12/23/22 02:30 Baso # (Auto) 0.0 10^3/uL (0.0-0.1) 12/23/22 02:30 Nucleated RBC % (auto) 0 % 12/23/22 02:30 Nucleated RBCs # 0.0 /100WBC 12/23/22 02:30 PT 14.20 SECONDS (12.1-14.9) 12/23/22 02:30 INR 1.07 (0.8-1.2) 12/23/22 02:30 Specimen Type Arterial 12/23/22 02:05 Sample Site Brachial, left 12/23/22 02:05 ABG pH 7.40 (7.35-7.45) 12/23/22 02:05 ABG pCO2 40.2 mmHg (35-45) 12/23/22 02:05 ABG pO2 85.4 mmHg (80.0-100.0) 12/23/22 02:05 ABG HCO3 24.8 mmol/L (22-26) 12/23/22 02:05 ABG Base Excess -0.1 mmol/L (-2.0-2.0) 12/23/22 02:05 Gilbert Test Pos 12/23/22 02:05 Hematocrit 40.6 % (37-47) 12/23/22 02:05 Hgb O2 Saturation 95.8 % (95-100) 12/23/22 02:05 Carboxyhemoglobin 1.2 %THgb (0.4-20.1) 12/23/22 02:05 Methemoglobin 0.7 % (0.4-1.5) 12/23/22 02:05 Total Hemoglobin 13.2 g/dL (12-16) 12/23/22 02:05 O2 Delivery Device Room air 12/23/22 02:05 FiO2 21.0 % 12/23/22 02:05 Animal Rides Manager ID [place] 12/23/22 02:05 Sodium 135 mmol/L (136-145) L 12/23/22 02:30 Potassium 4.2 mmol/L (3.5-5.1) 12/23/22 02:30 Chloride 99 mmol/L (98-107) 12/23/22 02:30 Carbon Dioxide 22 mmol/L (22-29) 12/23/22 02:30 Anion Gap 18.2 (5-19) 12/23/22 02:30 BUN 22 mg/dL (8-23) 12/23/22 02:30 Creatinine 1.6 mg/dL (0.5-0.9) H 12/23/22 02:30 GFR Calculation Not Reportable 12/23/22 02:30 Glucose 145 mg/dL (65-115) H 12/23/22 02:30 POC Glucose 144 mg/dL (70-110) H 12/23/22 02:27 Calculated Osmolality 286 mOsm/kg (285-295) 12/23/22 02:30 Lactate 2.3 mmol/L (0.5-2.2) H 12/23/22 02:30 Calcium 10.0 mg/dL (8.5-10.5) 12/23/22 02:30 Magnesium 2.2 mg/dL (1.7-2.3) 12/23/22 02:30 Total Bilirubin 0.4 mg/dL (0.15-1.2) 12/23/22 02:30 AST 31 U/L (0-32) 12/23/22 02:30 ALT 22 U/L (0-33) 12/23/22 02:30 Alkaline Phosphatase 111 U/L (35-105) H 12/23/22 02:30 Total Protein 7.1 g/dL (6.6-8.7) 12/23/22 02:30 Albumin 4.0 g/dL (3.5-5.2) 12/23/22 02:30 Globulin 3.1 g/dL (1.3-4.6) 12/23/22 02:30 Lipase 13 U/L (13-60) 12/23/22 02:30 Urine Color Yellow (Yellow) 12/23/22 02:39 Urine Appearance Clear (CLEAR) 12/23/22 02:39 Urine pH 5 (5-7) 12/23/22 02:39 Ur Specific [place] 1.015 (1.005-1.030) 12/23/22 02:39 Urine Protein 2+ (Negative) H 12/23/22 02:39 Urine Glucose (UA) Norm (Normal) 12/23/22 02:39 Urine Ketones 1+ (Negative) H 12/23/22 02:39 Urine Blood Trace (Negative) H 12/23/22 02:39 Urine Nitrate Positive (Negative) H 12/23/22 02:39 Urine Bilirubin 1+ (Negative) H 12/23/22 02:39 Urine Urobilinogen 1 mg/dL (Negative) H 12/23/22 02:39 Ur Leukocyte Esterase Negative (Negative) 12/23/22 02:39 Urine RBC 0-4 /hpf (0-2) H 12/23/22 02:39 Urine WBC 0-4 /hpf (0-5) H 12/23/22 02:39 Ur Squamous Epith Cells 0-4 /hpf (0-5) H 12/23/22 02:39 Amorphous Sediment 2+ /hpf 12/23/22 02:39 Urine Bacteria Trace /hpf (NONE) 12/23/22 02:39 Hyaline Casts 15-25 /lpf H 12/23/22 02:39 Discharge Plan Discharge Patient Disposition: Home Clinical Impression: Acute UTI Condition: Stable Prescriptions: New cephalexin 500 mg capsule 500 mg PO TID 7 Days Qty: 21 0RF No Action acetaminophen [Tylenol Extra Strength] 500 mg tablet 500 mg PO Q6H PRN (Reason: pain) pantoprazole 40 mg tablet,delayed release (DR/EC) 40 mg PO BID Qty: 180 1RF ipratropium bromide 21 mcg (0.03 %) spray,non-aerosol 2 spray intranasal TID PRN (Reason: Allergy Symptoms) Qty: 30 3RF Rx Instructions: USE 2 SPRAY(S) IN EACH NOSTRIL THREE TIMES DAILY multivitamin Tablet 1 tab PO DAILY Alphagan P 0.1 % drops 1 drp ophthalmic (eye) BID Rx Instructions: BOTH EYES carboxymethylcellulose sodium [Refresh Tears] 0.5 % Drops 1 drp OPHTHALMIC (EYE) BEDTIME hydrocodone-acetaminophen 5-325 mg tablet 1 tab PO Q6H PRN (Reason: pain) Qty: 20 0RF tamsulosin [Flomax] 0.4 mg capsule 0.4 mg PO DAILY Qty: 20 0RF ondansetron HCl 4 mg tablet 4 mg PO Q6H PRN (Reason: nausea and vomiting) Qty: 20 0RF Calcarb 600 With Vitamin D 600 mg-10 mcg (400 unit) Tablet 1 tab PO DAILY PreserVision AREDS-2 250-90-40-1 mg Capsule 1 tab PO BID potassium citrate 99 mg Capsule 99 mg PO DAILY promethazine 12.5 mg tablet 12.5 mg PO Q6H PRN (Reason: nausea and vomiting) Qty: 20 0RF Rx Instructions: 3 doses during day; last dose no later than 4 hr before bedtime Discharge Orders: Discharge ED (Routine); Ordered 12/23/22 Ordered By: Korby José Luis Discharge Diet: Advance as tolerated Discharge Activity: Resume usual activity Patient Instructions: Urinary Tract Infection in Women (ED) Coding Level of Care Code ED Oxyhydrogen Welder for Hardy Enriquez
[2022-12-23 02:13] LABS: ABG PCO2 40.2 mmHg (35-45); Arterial Blood Gas Hematocrit 40.6 % (37-47); Base Excess ABG -0.1 mmol/L (-2.0-2.0); Blood Gas Allen Test Pos; Blood Gas Sample Site Brachial, left; Blood Gas Sample Type Arterial; Carboxyhemoglobin 1.2 %THgb (0.4-20.1); HCO3 ABG 24.8 mmol/L (22-26); HGB O2 Sat 95.8 % (95-100); Methemoglobin 0.7 % (0.4-1.5); Oxygen Device ROOM AIR; PO2 ABG 85.4 mmHg (80.0-100.0); Total Hemoglobin 13.2 g/dL (12-16)
[2022-12-23 02:39] LABS: Basophils % 0.2 %; Eosinophils % 0.1 %; Hematocrit 40.6 % (37.0-47.0); Hemoglobin 12.9 g/dL (11.5-15.3); Lymphocytes # 1.2 10^3/uL (0.8-4.8); Mean Corpuscular HGB Conc 31.8 g/dL (30.0-36.0); Mean Corpuscular Hemoglobin 30.2 pg (28.0-34.0); Mean Corpuscular Volume 95.1 fl (81-99); Mean Platelet Volume 9.3 fL (7.4-10.4); Monocytes # 1.2 10^3/uL (0.2-0.9); Monocytes % 10.7 %; Neutrophils # 8.37 10^3/uL (1.8-7.7); Neutrophils % 77.7 %; Nucleated Red Blood Cells % 0 %; Platelet Count 215 10^3/cmm (130-400); Red Blood Count 4.27 10^6/uL (4.1-5.3); Red Cell Distribution Width 14.2 % (12.1-15.1); White Blood Count 10.8 10^3/uL (4.0-10.0)
[2022-12-23 02:46] LABS: Glucose Point of Care 144 mg/dL (70-110)
[2022-12-23 03:02] LABS: Alanine Aminotransferase 22 U/L (0-33); Alkaline Phosphatase 111 U/L (35-105); Aspartate Amino Transferase 31 U/L (0-32); Blood Urea Nitrogen 22 mg/dL (8-23); Carbon Dioxide 22 mmol/L (22-29); Chloride 99 mmol/L (98-107); Globulin 3.1 g/dL (1.3-4.6); Glucose 145 mg/dL (65-115); Lipase 13 U/L (13-60); Magnesium 2.2 mg/dL (1.7-2.3); Osmolality Calculated 286 mOsm/kg (285-295); Sodium 135 mmol/L (136-145); Total Bilirubin 0.4 mg/dL (0.15-1.2); Total Protein 7.1 g/dL (6.6-8.7)
[2022-12-23 03:03] LABS: Lactate (Lactic Acid level) 2.3 mmol/L (0.5-2.2)
[2022-12-23 03:17] LABS: Anion Gap 18.2 (5-19); Potassium 4.2 mmol/L (3.5-5.1)
[2022-12-23 03:24] LABS: Add Urine Microscopic? YES; Bacteria Urine TRACE /hpf; Bilirubin Urine 1+ (Negative); Blood Urine Trace (Negative); Glucose Urine UA Norm (Normal); Ketones Urine 1+ (Negative); Leukocyte Esterase Urine Negative (Negative); Nitrate Urine Positive (Negative); Protein Urine 2+ (Negative); RBC Urine 0-4 /hpf (0-2); Specific Gravity, Urine 1.015 (1.005-1.030); Squamous Epithelial Cell Urine 0-4 /hpf (0-5); Urine Appearance Clear (CLEAR); Urine Color Yellow (Yellow); Urobilinogen Urine 1 mg/dL (Negative); WBC Urine 0-4 /hpf (0-5); pH Urine 5 (5-7)
[2022-12-23 03:25] LABS: Add Urine Culture? No; Amorphous Sediment Urine 2+ /hpf; Hyaline Casts Urine 15-25 /lpf
[2022-12-23 03:27] LABS: INR 1.07 (0.8-1.2)
[2022-12-23] MEDS: cefTRIAXone 1,000 MG in sodium chloride 0.9% (plus) 50 ML 100 MG IV (03:59)
[2022-12-23] MEDS: acetaminophen 325 mg Tablet 650 MG PO (04:25)
--- NOTE | 2022-12-24 10:07 | DCPLANNER ---
Addendum entered by Linsey Roche 01/13/23 11:14: Patient had a follow up appointment scheduled with urology - patient did not attend appointment. Original Note: telephonic nurse case manager had message to schedule a follow up appointment for patient with urology. telephonic nurse case manager sent patients information to the front office staff at urology. Patients information will be printed and reviewed. Clinic will call patient with appointment information.
== END 2022-12-23 05:20 | disposition home or self-care (01) ==
PROVIDERS: Emergency Provider Emergency Medicine
DX: N39.0 Urinary tract infection, site not specified (principal); Z85.3 Personal history of malignant neoplasm of breast; E78.5 Hyperlipidemia, unspecified; Z86.73 Personal history of transient ischemic attack (TIA), and cerebral infarction without residual deficits
CPT/HCPCS: 36416; 36600; 70450; 71045; 74176; 80053; 81001; 82805; 82962; 83605; 83690; 83735; 85025; 85610; 87040; 96365; 99285; J0696

== ENCOUNTER 2023-01-12 08:57 | Outpatient (CLI) | payer MEDICARE, OTHER, SELFPAY ==
--- NOTE | 2023-01-12 09:07 | CTR_ITS ---
PROCEDURE INFORMATION: Exam: CT Chest With Contrast; Diagnostic Exam date and time: 01/12/2023 11:03 AM Age: 77 years old Clinical indication: Condition or disease; Other: Breast , gastric lympoma; Other: Breast cancer, lympoma; Primary cancer: Breast, gastric lympoma; Follow-up oncological assessment; Prior surgery; Surgery type: Obi hips, appy, gb, hyst; Additional info: Surveillance TECHNIQUE: Imaging protocol: Diagnostic computed tomography of the chest with contrast. Radiation optimization: All CT scans at this facility use at least one of these dose optimization techniques: automated exposure control; mA and/or kV adjustment per patient size (includes targeted exams where dose is matched to clinical indication); or iterative reconstruction. Contrast material: OMNI 350; Contrast volume: 95 ml; Contrast route: INTRAVENOUS (IV); REPORTING DATA: Count of CT and Cardiac NM exams in prior 12 months: This patient has received 7 known CTs and 0 known cardiac nuclear medicine studies in the 12 months prior to the current study. COMPARISON: CT chest abdpel w/*[id number] 12/22/2022 4:52 AM RADIATION DOSE METRICS: Total DLP (mGy-cm): 632.61 FINDINGS: Lungs: Stable 3 mm right middle lobe nodule, series 5, image 30. Multiple stable tiny 1-2 mm nodules in the lung bases. Calcified granuloma in the left lung. Minimal scattered atelectasis. The lungs are otherwise clear. No consolidation. Pleural spaces: Unremarkable. No pneumothorax. No pleural effusion. Heart: Mitral annulus calcifications. Lymph nodes: Unremarkable. No enlarged lymph nodes. Vasculature: The ascending thoracic aorta is upper normal measuring 3.7 cm. No dissection. Bones/joints: Degenerative changes of the thoracic spine. No acute fracture. Soft tissues: Multiple calcifications in the breasts. PROCEDURE INFORMATION: Exam: CT Abdomen And Pelvis With Contrast Exam date and time: 01/12/2023 11:03 AM Age: 77 years old Clinical indication: Condition or disease; Other: Breast , gastric lympoma; Other: Breast cancer, lympoma; Primary cancer: Breast, gastric lympoma; Follow-up oncological assessment; Prior surgery; Surgery type: Obi hips, appy, gb, hyst; Additional info: Surveillance TECHNIQUE: Imaging protocol: Computed tomography of the abdomen and pelvis with contrast. Radiation optimization: All CT scans at this facility use at least one of these dose optimization techniques: automated exposure control; mA and/or kV adjustment per patient size (includes targeted exams where dose is matched to clinical indication); or iterative reconstruction. Contrast material: OMNI 350; Contrast volume: 95 ml; Contrast route: INTRAVENOUS (IV); REPORTING DATA: Count of CT and Cardiac NM exams in prior 12 months: This patient has received 7 known CTs and 0 known cardiac nuclear medicine studies in the 12 months prior to the current study. COMPARISON: CT kidney stone [id number] 12/23/2022 1:45 AM RADIATION DOSE METRICS: Total DLP (mGy-cm): 632.61 FINDINGS: Liver: Normal. No mass. Gallbladder and bile ducts: Cholecystectomy. The bile ducts are normal. Pancreas: Normal. No ductal dilation. Spleen: Calcified granuloma in the spleen. Adrenal glands: Normal. No mass. Kidneys and ureters: Stable chronic mild left hydronephrosis with columning of the of the ureter to the urinary bladder. No visible calculus. The right kidney is unremarkable. Stomach and bowel: Diverticulosis of the colon. No diverticulitis. The stomach and small bowel are unremarkable. No wall thickening or obstruction. Appendix: The appendix is not visualized. No secondary signs of appendicitis. Intraperitoneal space: Unremarkable. No free air. No significant fluid collection. Vasculature: Mild arterial calcifications. No aneurysm. Lymph nodes: Unremarkable. No enlarged lymph nodes. Urinary bladder: Small cystocele. Reproductive: Hysterectomy. The ovaries are normal. Bones/joints: Bilateral hip arthroplasties with significant streak artifact. Degenerative changes of the lumbar spine. No acute fracture. Soft tissues: Small fat containing left inguinal hernia. CT/CT chest abdpel w/*[id number] IMPRESSION: 1. Stable small pulmonary nodules measuring up to 3 mm. No new nodules. Greater than 2 year stability favors a benign process. IMPRESSION: 1. No acute findings.
[2023-01-12 09:37] LABS: Basophils # 0.1 10^3/uL (0.0-0.1); Basophils % 1.2 %; Eosinophils # 0.1 10^3/uL (0.0-0.8); Eosinophils % 1.8 %; Hematocrit 40.9 % (37.0-47.0); Hemoglobin 12.9 g/dL (11.5-15.3); Lymphocytes # 1.7 10^3/uL (0.8-4.8); Lymphocytes % 28.5 %; Mean Corpuscular HGB Conc 31.5 g/dL (30.0-36.0); Mean Corpuscular Hemoglobin 29.8 pg (28.0-34.0); Mean Corpuscular Volume 94.5 fl (81-99); Monocytes # 0.7 10^3/uL (0.2-0.9); Monocytes % 11.3 %; Neutrophils # 3.45 10^3/uL (1.8-7.7); Nucleated Red Blood Cells % 0 %; Platelet Count 212 10^3/cmm (130-400); Red Blood Count 4.33 10^6/uL (4.1-5.3); Red Cell Distribution Width 13.8 % (12.1-15.1)
[2023-01-12 09:52] LABS: Alanine Aminotransferase 15 U/L (0-33); Albumin Level 3.9 g/dL (3.5-5.2); Alkaline Phosphatase 113 U/L (35-105); Anion Gap 11.1 (5-19); Aspartate Amino Transferase 23 U/L (0-32); Blood Urea Nitrogen 21 mg/dL (8-23); Calcium 9.6 mg/dL (8.5-10.5); Carbon Dioxide 30 mmol/L (22-29); Chloride 103 mmol/L (98-107); Globulin 3.1 g/dL (1.3-4.6); Glucose 89 mg/dL (65-115); Lactate Dehydrogenase 211 U/L (135-214); Osmolality Calculated 292 mOsm/kg (285-295); Potassium 4.1 mmol/L (3.5-5.1); Sodium 140 mmol/L (136-145); Total Bilirubin 0.3 mg/dL (0.15-1.2)
[2023-01-12] MEDS: iohexol 350 mg/mL 500 mL Btl (per mL) IV (11:09)
[2023-01-12] MEDS: iohexol 350 mg/mL 500 mL Btl (per mL) PO (11:09)
== END 2023-01-12 08:58 | disposition home or self-care (01) ==
LOC: RAD 09:01
PROVIDERS: Nurse Practitioner Family; PCP Family Medicine; Visit Provider Internal Medicine Hematology & Oncology
DX: C85.99 Non-Hodgkin lymphoma, unspecified, extranodal and solid organ sites (principal); Z85.3 Personal history of malignant neoplasm of breast; R91.8 Other nonspecific abnormal finding of lung field
CPT/HCPCS: 36415; 71260; 74177; 80053; 83615; 85025; Q9967

== ENCOUNTER 2023-01-18 10:24 | Outpatient (CLI) | payer MEDICARE, OTHER, SELFPAY ==
--- NOTE | 2023-01-18 11:00 | USCV_ITS ---
Jenna Nye Age: 77 Gender: F : 1945 Exam Date: 01/18/2023 11:13 Ordering Phys: Giuliano Jonas MD (Andy) ([email or web address] [place]) Technologist: BOGDAN Exam Location: [facility] [place] Indication: Stenosis Risk Factors: Previous Vascular Surgery: Right Brachial BP: / Left Brachial BP: / Right Left Velocity (cm/s) Spectral Plaque Velocity (cm/s) Spectral Plaque Syst/Diast Broadening Syst/Diast Broadening 58.50/ 13.10 Prox CCA 63.20 / 17.90 86.10/ 19.70 Mid CCA 55.50 / 10.30 107.70/17.10 Distal CCA 55.50 / 11.10 94.80/ 20.90 Prox ICA 320.00/ 83.90 82.70/ 26.50 Mid ICA 289.40/ 59.20 83.80/ 29.80 Distal ICA 115.80/ 15.40 141.40 ECA 101.40 0.88 ICA/CCA 5.06 Vertebral 12.30/ 6.40 cm/s 88.00/ 19.70 cm/s Subclavian 77.80 130.1 0 CONCLUSIONS Right CEA. No recurrent stenosis Left ICA stenosis 70-99%. Veloicty progressed since 06/22. Moderate atheromatous plaque left carotid bulb/ICA. Recommend CTA for better evaluation. Normal antegrade Doppler flow noted in the right vertebral artery. Normal antegrade Doppler flow noted in the left vertebral artery. Pastor Banda MD (Electronically Signed) Final Date: 18 January 2023 13:36 S
== END 2023-01-18 10:25 | disposition home or self-care (01) ==
LOC: RAD 10:26
PROVIDERS: PCP Family Medicine; Visit Provider Thoracic Surgery (Cardiothoracic Vascular Surgery)
DX: I65.23 Occlusion and stenosis of bilateral carotid arteries (principal); Z09 Encounter for follow-up examination after completed treatment for conditions other than malignant neoplasm
CPT/HCPCS: 93880

== ENCOUNTER 2023-01-26 15:57 | Outpatient (CLI) | payer MEDICARE, OTHER, SELFPAY ==
--- NOTE | 2023-01-26 16:30 | CT_ITS ---
WS: [id number] CTA NECK TECHNIQUE: Contrast enhanced CTA of the neck with coronal and sagittal reformatted images and maximum intensity projection (MIP) images. NASCET criteria utilized. CLINICAL INFORMATION: carotid stenosis COMPARISON: None. DLP: 173.[address] scans at [facility] use at least one of these dose optimization techniques: automated e xposure control; mA and/or kV adjustment per patient size (includes targeted exams where dose is matc hed to clinical indication); or iterative reconstruction. FINDINGS: RIGHT: Right common carotid artery is patent. Interval postoperative RIGHT CEA. No recurrent ICA sten osis. ICA is patent to the skull base. LEFT: Left common carotid artery is patent. Eccentric calcified atheromatous plaque left carotid bulb extending into the ICA is unchanged in appearance from previous. Small residual eccentric lumen appe ars unchanged from previous. LEFT ICA stenosis approximately 75-80% unchanged from previous CTa 2020. Left ICA is patent to the skull base. Left dominant vertebral artery. Tiny patent right vertebral artery. Proximal basilar artery is patent . Partially visualized mastoid air cells well aerated. Moderate spondylitic changes cervical spine wi th central canal stenosis unchanged. CT/CT angio neck [id number] IMPRESSION: 1. Interval postoperative RIGHT CEA. No recurrent stenosis. 2. Left ICA stenosis 75-80% appears stable compared to previous. 3. Left dominant vertebral artery. Smaller but patent right vertebral artery. Proximal basilar artery is patent. 4. Advanced spondylitic changes cervical spine unchanged.
[2023-01-26] MEDS: iohexol 350 mg/mL 500 mL Btl (per mL) IV (16:34)
== END 2023-01-26 15:58 | disposition home or self-care (01) ==
PROVIDERS: PCP Family Medicine; Visit Provider Thoracic Surgery (Cardiothoracic Vascular Surgery)
DX: I65.23 Occlusion and stenosis of bilateral carotid arteries (principal)
CPT/HCPCS: 70498; Q9967

== ENCOUNTER → 2023-02-18 08:57 | Outpatient (BNVA) | payer MEDICARE, OTHER, SELFPAY | PROVIDERS: PCP Family Medicine; Visit Provider Thoracic Surgery (Cardiothoracic Vascular Surgery) | DX: I65.23 Occlusion and stenosis of bilateral carotid arteries (principal) | CPT/HCPCS: 99213 ==

== ENCOUNTER 2023-02-24 09:01 | Oncology outpatient (recurring) (ONCR) | payer MEDICARE, OTHER, SELFPAY ==
[2023-02-24 09:38] LABS: Basophils # 0.1 10^3/uL (0.0-0.1); Basophils % 1.2 %; Eosinophils # 0.2 10^3/uL (0.0-0.8); Eosinophils % 2.6 %; Hematocrit 39.6 % (37.0-47.0); Hemoglobin 13.1 g/dL (11.5-15.3); Lymphocytes # 2.2 10^3/uL (0.8-4.8); Lymphocytes % 32.7 %; Mean Corpuscular HGB Conc 33.1 g/dL (30.0-36.0); Mean Corpuscular Hemoglobin 31.2 pg (28.0-34.0); Mean Corpuscular Volume 94.3 fl (81-99); Mean Platelet Volume 9.4 fL (7.4-10.4); Monocytes # 0.8 10^3/uL (0.2-0.9); Monocytes % 11.4 %; Neutrophils # 3.41 10^3/uL (1.8-7.7); Neutrophils % 51.9 %; Nucleated Red Blood Cells % 0 %; Platelet Count 215 10^3/cmm (130-400); Red Cell Distribution Width 14.2 % (12.1-15.1); White Blood Count 6.6 10^3/uL (4.0-10.0)
[2023-02-24 10:33] LABS: Alanine Aminotransferase 17 U/L (0-33); Albumin Level 4.1 g/dL (3.5-5.2); Alkaline Phosphatase 89 U/L (35-105); Anion Gap 13.1 (5-19); Aspartate Amino Transferase 25 U/L (0-32); Blood Urea Nitrogen 24 mg/dL (8-23); Calcium 9.5 mg/dL (8.5-10.5); Carbon Dioxide 27 mmol/L (22-29); Chloride 103 mmol/L (98-107); Globulin 2.7 g/dL (1.3-4.6); Glucose 97 mg/dL (65-115); Lactate Dehydrogenase 233 U/L (135-214); Osmolality Calculated 292 mOsm/kg (285-295); Potassium 4.1 mmol/L (3.5-5.1); Sodium 139 mmol/L (136-145); Total Bilirubin 0.3 mg/dL (0.15-1.2); Total Protein 6.8 g/dL (6.6-8.7)
== END 2023-02-28 23:59 | disposition home or self-care (01) ==
PROVIDERS: Internal Medicine Hematology & Oncology; PCP Family Medicine; Visit Provider Nurse Practitioner
DX: Z08 Encounter for follow-up examination after completed treatment for malignant neoplasm (principal); Z85.72 Personal history of non-Hodgkin lymphomas; Z85.3 Personal history of malignant neoplasm of breast; Z92.21 Personal history of antineoplastic chemotherapy; Z92.23 Personal history of estrogen therapy; Z92.3 Personal history of irradiation; Z96.643 Presence of artificial hip joint, bilateral
CPT/HCPCS: 80053; 83615; 85025; 99213

== ENCOUNTER 2023-07-02 09:41 | Outpatient (CLI) | payer MEDICARE, OTHER, SELFPAY ==
--- NOTE | 2023-07-02 09:45 | USCV_ITS ---
Jenna Nye Age: 78 Gender: F : 1945 Exam Date: 07/02/2023 10:32 Ordering Phys: Giuliano Jonas MD (Andy) ([email or web address] [place] Technologist: BOGDAN [place] [facility] [place] Indication: Stenosis Risk Factors: Previous Vascular Surgery: Right Brachial BP: / Left Brachial BP: / Right Left Velocity (cm/s) Spectral Plaque Velocity (cm/s) Spectral Plaque Syst/Diast Broadening Syst/Diast Broadening 61.40/ 11.00 Prox CCA 76.90 / 10.90 57.70/ 9.20 Mid CCA 50.50 / 8.50 77.90/ 11.90 Distal CCA 46.00 / 12.20 48.90/ 12.40 Prox ICA 206.60/ 37.70 77.70/ 22.50 Mid ICA 216.50/ 29.60 89.30/ 27.20 Distal ICA 84.10 / 15.80 143.30 ECA 51.50 1.15 ICA/CCA 2.81 Antegrade Vertebral Antegrade / cm/s 82.80/ 21.00 cm/s Tri Subclavian Tri 41.70 116.9 0 FINDINGS Comparison:. 01/18/23 Prior right CEA, no recurrrent stenosis. Mild decrease of systolic velocity left ICA. Antegrade vertebral arteries. CONCLUSIONS Left ICA stenosis 50-69%. Right ICA stenosis < 50%. Dr. Ernestina Sethi DO (Electronically Signed) Final Date: 02 July 2023 14:19 S
== END 2023-07-02 09:42 | disposition home or self-care (01) ==
PROVIDERS: PCP Family Medicine; Visit Provider Thoracic Surgery (Cardiothoracic Vascular Surgery)
DX: I65.23 Occlusion and stenosis of bilateral carotid arteries (principal)
CPT/HCPCS: 93880

== ENCOUNTER 2023-08-02 07:50 | Outpatient (CLI) | payer MEDICARE, SELFPAY ==
--- NOTE | 2023-08-02 07:58 | CT_ITS ---
WS: [id number] CT CHEST, ABDOMEN, AND PELVIS TECHNIQUE: Contrast-enhanced CT of the chest, abdomen, and pelvis with coronal and sagittal reformatt ed images. CLINICAL INFORMATION: 6 month followup for gastric lymphoma, elevated LDH COMPARISON: CT 01/12/2023 DLP: 652.[address] scans at [facility] use at least one of these dose optimization techniques: automated e xposure control; mA and/or kV adjustment per patient size (includes targeted exams where dose is matc hed to clinical indication); or iterative reconstruction. CT CHEST: Stable noncalcified 3 mm RIGHT middle lobe nodule. A few tiny nodules at the lung bases similar to pr evious. Calcified granuloma LEFT lung. Ectatic ascending thoracic aorta measuring 3.5 cm unchanged. Proximal main pulmonary arteries are normal. No mediastinal or hilar lymphadenopathy. No axillary lym phadenopathy. Postoperative changes LEFT breast with associated calcifications and nodularity similar to previous. No suspicious or progressed pulmonary nodules. . CT ABDOMEN AND PELVIS: Diffuse fatty filtration of the liver. Normal portal vein and splenic vein. Sp lenic artery calcification. Fatty atrophy of the pancreas. Small cyst or hemangioma in the spleen kary ears unchanged. Stomach and proximal duodenum are normal in appearance. Adrenal glands are normal. No rmal renal parenchymal enhancement. No hydronephrosis. Aorta calcification. No periaortic or retroper itoneal lymphadenopathy. Retroaortic LEFT renal vein. Urine distended bladder. Sigmoid diverticulosis. No evidence of small or large bowel obstruction. Tin y fat-containing umbilical hernia. Hysterectomy. Small bladder cystocele. Fat-containing LEFT inguinal hernia. Cholecystectomy. Bilateral THAs significantly degrade imaging in the pelvis. IMPRESSION: 1. No evidence of progressive or new metastatic disease in the chest abdomen or pelvis. 2. Stable 3 mm nodule RIGHT middle lobe. 3. No lymphadenopathy in the chest abdomen pelvis. 4. Hysterectomy and cholecystectomy. 5. Small bladder cystocele. 6. Small esophageal hiatal hernia.
[2023-08-02] MEDS: iohexol 350 mg/mL 500 mL Btl (per mL) PO (08:20)
[2023-08-02 09:16] LABS: Blood Urea Nitrogen 18 mg/dL (8-23)
[2023-08-02] MEDS: iohexol 350 mg/mL 500 mL Btl (per mL) IV (09:30)
== END 2023-08-02 07:51 | disposition home or self-care (01) ==
PROVIDERS: PCP Family Medicine; Visit Provider Nurse Practitioner
DX: C85.99 Non-Hodgkin lymphoma, unspecified, extranodal and solid organ sites (principal); R91.8 Other nonspecific abnormal finding of lung field
CPT/HCPCS: 71260; 74177; 82565; 84520; Q9967

== ENCOUNTER → 2023-08-12 09:48 | Outpatient (BNVA) | payer MEDICARE, SELFPAY | PROVIDERS: PCP Family Medicine; Visit Provider Thoracic Surgery (Cardiothoracic Vascular Surgery) | DX: I65.23 Occlusion and stenosis of bilateral carotid arteries (principal) | CPT/HCPCS: 99213 ==

== ENCOUNTER 2023-09-02 12:29 | Oncology outpatient (recurring) (ONCR) | payer MEDICARE, SELFPAY ==
[2023-09-02 12:50] VITALS: BP 184/78; PULSE 67; RESP 18; TEMP 36.4; O2SAT 97
[2023-09-02 13:06] LABS: Basophils # 0.1 10^3/uL (0.0-0.1); Basophils % 0.9 %; Eosinophils # 0.2 10^3/uL (0.0-0.8); Eosinophils % 2.2 %; Hematocrit 40.2 % (36-47); Lymphocytes # 2.6 10^3/uL (0.8-4.8); Lymphocytes % 30.4 %; Mean Corpuscular HGB Conc 32.8 g/dL (30-55); Mean Corpuscular Hemoglobin 31.2 pg (27-33); Mean Platelet Volume 9.2 fL (7.4-10.4); Monocytes # 0.9 10^3/uL (0.2-0.9); Monocytes % 11.1 %; Neutrophils # 4.66 10^3/uL (1.8-7.7); Neutrophils % 55.3 %; Nucleated Red Blood Cells % 0 %; Platelet Count 245 10^3/cmm (157-399); Red Blood Count 4.23 10^6/uL (3.85-5.65); Red Cell Distribution Width 13.6 % (12.1-15.1); White Blood Count 8.45 10^3/uL (3.29-11.43)
[2023-09-02 13:37] LABS: Alanine Aminotransferase 17 U/L (0-33); Albumin Level 4.2 g/dL (3.5-5.2); Alkaline Phosphatase 79 U/L (35-105); Anion Gap 11.1 (5-19); Aspartate Amino Transferase 21 U/L (0-32); Blood Urea Nitrogen 29 mg/dL (8-23); Calcium 10.3 mg/dL (8.5-10.5); Carbon Dioxide 31 mmol/L (22-29); Chloride 100 mmol/L (98-107); Globulin 2.8 g/dL (1.3-4.6); Glucose 99 mg/dL (65-115); Lactate Dehydrogenase 227 U/L (135-214); Osmolality Calculated 292 mOsm/kg (285-295); Potassium 4.1 mmol/L (3.5-5.1); Sodium 138 mmol/L (136-145); Total Bilirubin 0.4 mg/dL (0.15-1.2)
== END 2023-09-30 23:59 | disposition home or self-care (01) ==
PROVIDERS: PCP Family Medicine; Visit Provider Internal Medicine
DX: C85.99 Non-Hodgkin lymphoma, unspecified, extranodal and solid organ sites (principal); Z85.3 Personal history of malignant neoplasm of breast; Z79.899 Other long term (current) drug therapy
CPT/HCPCS: 36415; 80053; 83615; 85025; 99214

== ENCOUNTER 2023-10-01 02:24 | Emergency (ER) | payer MEDICARE, SELFPAY ==
[2023-10-01 02:25] VITALS: BP 230/93; PULSE 87; RESP 18; TEMP 36.6; O2SAT 98; BMI 21.9
--- NOTE | 2023-10-01 02:32 | ED_ITS ---
HPI - Skin/Abscess/Foreign Bdy General: Chief complaint: Skin/Abscess/Foreign Body Stated complaint: Rash Time Seen by Provider: 10/01/23 02:26 Source: patient and EMS Mode of arrival: EMS Limitations: no limitations History of Present Illness: 78-year-old female states she has had a rash to her neck over the last 2 days. States has been pruritic in nature denies any pain she had no fevers states that its been worsening she has not done any treatment besides some oral creams. Denies any worsening proving factors Associated symptoms: Deny chills, fever(s), nausea or vomiting Review of Systems Const: Denies: fever(s), chills, body aches or change in appetite ENMT: Denies: throat pain or dental pain Card: Denies: chest pain Resp: Denies: dyspnea GI: Denies: abdominal pain, nausea, vomiting or diarrhea Musc: Denies: neck pain or back pain Skin/Breast: Reports: rash Neuro: Denies: headache(s) PFSH ED PFSH: Medical History Bilateral carotid artery stenosis without cerebral infarction Cervical disc disorder with myelopathy of mid-cervical region Chronic bronchitis Closed head injury GERD (gastroesophageal reflux disease) HX: breast cancer ER [place] negative, 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 status post radiation therapy and hormonal therapy, currently on Femara Hyperlipidemia 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 disc disorder 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 region FDC (current) use of opiate analgesic Lumbar stenosis without neurogenic claudication Pain management contract signed Spondylolisthesis of cervical region 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 (cerebrum) Hx of stroke in February 07, 2019 Surgical History Status post carotid endarterectomy History of left breast biopsy Port-A-Cath in place 04/16/20 History of cholecystectomy History of hysterectomy / BSO / appendectomy H/O total hip arthroplasty Right Social History Smoking and tobacco/nicotine status: never used tobacco/nicotine Alcohol intake: never Substance/Drug Use: never Lives independently: Yes Household members: spouse Marital status: Current occupational status: retired Physical Exam Const: COMMON NORMALS: no acute distress, patient oriented x3 and healthy appearing HENMT: COMMON NORMALS: normocephalic and atraumatic HEAD & SCALP: normocephalic and atraumatic Neck/C-Spine: COMMON NORMALS: full ROM and supple Chest: COMMONS NORMALS: normal inspection of the chest and normal palpation of entire chest wall Resp: COMMON NORMALS: normal respiratory effort Cardio: COMMON NORMALS: regular rate, regular rhythm and No murmurs present (Cardio) RATE: regular rate RHYTHM: regular rhythm Extremity: COMMON NORMALS: normal to inspection and full ROM Neuro: COMMON NORMALS: patient oriented x3, moves all extremities and no focal motor deficits Psych: COMMON NORMALS: mental status grossly normal Skin: NARRATIVE SKIN EXAM: Maculopapular rash noted to the neck it does cross the midline Course 2 Vital Signs: Vital signs: Vital Signs Temperature 98 F 10/01/23 02:25 Pulse Rate 87 10/01/23 02:25 Respiratory Rate 18 10/01/23 02:25 Blood Pressure 230/93 10/01/23 02:25 Pulse Oximetry 98 10/01/23 02:25 Oxygen Delivery Me thod Room Air 10/01/23 02:25 MDM - Skin/Abscess/Foreign Bdy Medicial Decision Making Patient presents with a rash to her neck we will start on steroids. She is hypertensive here she is asymptomatic we will start her on Norvasc she is to monitor blood pressure at home and follow-up with her PCP. Medical Records I reviewed the patient's medical records. No radiology studies performed this visit Discharge Plan Discharge Patient Disposition: Home Clinical Impression: Rash, Hypertension Condition: Stable Prescriptions: New prednisone 50 mg tablet 50 mg PO DAILY Qty: 5 0RF Norvasc 5 mg tablet 5 mg PO DAILY Qty: 30 0RF No Action acetaminophen [Tylenol Extra Strength] 500 mg tablet 500 mg PO Q6H PRN (Reason: pain) ipratropium bromide 21 mcg (0.03 %) spray,non-aerosol 2 spray intranasal TID PRN (Reason: Allergy Symptoms) Qty: 30 3RF Rx Instructions: USE 2 SPRAY(S) IN EACH NOSTRIL THREE TIMES DAILY multivitamin Tablet 1 tab PO DAILY Alphagan P 0.1 % drops 1 drp ophthalmic (eye) BID Rx Instructions: BOTH EYES carboxymethylcellulose sodium [Refresh Tears] 0.5 % Drops 1 drp OPHTHALMIC (EYE) BEDTIME Calcarb 600 With Vitamin D 600 mg-10 mcg (400 unit) Tablet 1 tab PO DAILY PreserVision AREDS-2 250-90-40-1 mg Capsule 1 tab PO BID potassium citrate 99 mg Capsule 99 mg PO DAILY Discharge Orders: Discharge ED (Routine); Ordered 10/01/23 Ordered By: Mackenzie Ordonez Referrals: Jackson Yi MD [Primary Care Provider] - 1-3 days Patient Instructions: Acute Rash (ED) Coding Level of Care Code ED Early Education Teacher for Hardy Enriquez
[2023-10-01] MEDS: dexamethasone 10 mg/mL INJ IVP (02:42)
[2023-10-01] MEDS: amlodipine 5 mg Tablet PO (02:42)
[2023-10-01 03:06] VITALS: BP 186/118; PULSE 74; RESP 18; O2SAT 97
== END 2023-10-01 03:06 | disposition home or self-care (01) ==
PROVIDERS: Emergency Provider Emergency Medicine; PCP Family Medicine
DX: R21 Rash and other nonspecific skin eruption (principal); I10 Essential (primary) hypertension; Z85.3 Personal history of malignant neoplasm of breast; E78.5 Hyperlipidemia, unspecified; Z86.73 Personal history of transient ischemic attack (TIA), and cerebral infarction without residual deficits
CPT/HCPCS: 96374; 99284; J1100

== ENCOUNTER 2023-10-20 08:24 | Outpatient (CLI) | payer MEDICARE, SELFPAY ==
--- NOTE | 2023-10-20 08:48 | MM_ITS ---
WS: [id number] DIAGNOSTIC BILATERAL DIGITAL BREAST TOMOSYNTHESIS MAMMOGRAPHY WITH CAD HISTORY: HX OF BR CA COMPARISON: 06/02/2022, 07/12/2020, 07/01/2020 TECHNIQUE: Bilateral craniocaudad, mediolateral oblique, and mediolateral views are submitted with to mosynthesis and SM. Computer aided detection utilized. Breast composition: There are scattered areas of fibroglandular density. Volume loss and postsurgical changes in the upper outer quadrant of the RIGHT breast. There is mild soft tissue thickening from p osttreatment. The area of scarring and gliosis in the posterior upper outer quadrant of the LEFT boom st is very similar to the prior examinations. No new mass. Benign calcifications in each breast. IMPRESSION: MM/[place] [id number] BI-RADS: 2-Benign FOLLOW UP: 1 Year Follow-up
== END 2023-10-20 08:25 | disposition home or self-care (01) ==
LOC: RAD 08:25
PROVIDERS: PCP Family Medicine; Visit Provider Internal Medicine
DX: Z85.3 Personal history of malignant neoplasm of breast (principal)
CPT/HCPCS: 77062; G0279

== ENCOUNTER 2024-01-07 06:11 | Emergency (ER) | payer MEDICARE, SELFPAY ==
[2024-01-07 06:12] VITALS: BP 162/64; PULSE 79; RESP 21; TEMP 36.5; O2SAT 100; BMI 21.4
--- NOTE | 2024-01-07 06:15 | ECG_ITS ---
[facility] Test Date: 2024-01-07 Pat Name: Jenna Nye Department: Room: Gender: Female Assistant To The Vice President: : 1945 Requested By: Esa Roth Order Number: [id number] Vicki MD: Gustabo Orta M.D. Measurements Intervals [place] Rate: 81 P: 0 MS: 0 QRS: 22 QRSD: 117 T: -42 QT: 393 QTc: 458 Interpretive Statements Multifocal atrial rhythm Nonspecific IVCD POSSIBLE ANTERIOR MYOCARDIAL INFARCTION , OF INDETERMINATE AGE [30 ms Q WAVE IN V3/V4, OR R < 0.2 mV IN V4] Compared to ECG 12/22/2022 04:22:28 Myocardial infarct finding now present Sinus rhythm no longer present T-wave abnormality no longer present Electronically Signed On 01-07-2024 17:34:59 TUBING OILER by Gustabo Orta M.D. [email or web address]/store/[id number] f
[2024-01-07 06:25] LABS: Glucose Point of Care 122 mg/dL (70-110)
--- NOTE | 2024-01-07 06:43 | XR_ITS ---
WS: [id number] Portable AP upright chest, 01/07/2024 Clinical Data: syncope Comparison: Portable chest, 12/23/2022 Findings: No nodules, masses or effusions are seen. The heart is normal. The pulmonary vascularity is not increased. No pneumonia or pneumothorax is seen. The aortic arch shows mild calcification. Monit or leads are on the chest wall. Impression: Atherosclerosis.
--- NOTE | 2024-01-07 06:45 | ED_ITS ---
HPI - Weakness 2 General: Chief complaint: Weakness Stated complaint: Weakness, Syncope Time Seen by Provider: 01/07/24 06:30 Source: patient and EMS Mode of arrival: EMS Limitations: no limitations History of Present Illness: This patient presented to our emergency department from her home via EMS. Primary complaint this morning was generalized weakness. The patient states that she has had lifelong history of constipation issues and takes milk of magnesia periodically to help control the symptoms. She states that over the past week she has not had stool and increased her dosing of milk of magnesia. She states that she can commonly did not feel like eating or drinking much for those few days. She states that yesterday afternoon she had repetitive loose stools and which cured her constipation issues. She states that she has not made much urine output in the last 24 hours because she has not had much in the way of oral intake. She states she awoke this morning and was getting out of bed and felt weak and slid down the mattress to the floor. She did not fall or strike her head or suffer a loss of consciousness. She states her dog came up and inspected her and then she made her way to the telephone call 911. She denied any chest pain, focal weakness, headache etc. EMS report was noted and appreciated. She currently denies any complaints. She denies any known history of cardiovascular disease. She has never had any abdominal surgeries. She denied any blood in her stools and no associated vomiting with her current illness. She denies shortness of breath. MD Complaint: generalized weakness Associated symptoms: Denies chest pain, chills, melena, easy bruising, fever(s), headache(s), nausea, syncope or vomiting Review of Systems 2 Const: Denies: fever(s) or chills Eyes: Denies: change in vision ENMT: Denies: throat pain, odynophagia, nasal discharge or nasal congestion Card: Reports: pre-syncope; Denies: chest pain, palpitations or syncope Resp: Denies: dyspnea, productive cough or non-productive cough GI: Reports: diarrhea; Denies: abdominal pain, nausea, vomiting, hematemesis, hematochezia or melena : Reports: oliguria; Denies: flank pain or difficulty voiding Musc: Denies: neck pain, back pain, extremity pain or extremity swelling Skin/Breast: Denies: rash Neuro: Denies: headache(s), numbness in extremities, weakness in extremities or Slurred speech present Psych: Denies: anxiety or depression Hector/Lymph: Denies: easy bruising or easy bleeding PFSH ED 2 PFSH: Medical History GERD (gastroesophageal reflux disease) Bilateral carotid artery stenosis without cerebral infarction Closed head injury Hyperlipidemia 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 disc disorder 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 region Lumbar stenosis without neurogenic claudication Stenosis of cervical spine with myelopathy FCI (current) use of opiate analgesic Pain management contract signed HX: breast cancer ER MS negative, 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 status post radiation therapy and hormonal therapy, currently on Femara Stroke (cerebrum) Hx of stroke in February 07, 2019 Spondylolisthesis of cervical region Cervical disc disorder with myelopathy of mid-cervical region Chronic bronchitis Surgical History Status post carotid endarterectomy History of left breast biopsy Port-A-Cath in place 04/16/20 History of cholecystectomy History of hysterectomy / BSO / appendectomy H/O total hip arthroplasty Right Social History Smoking and tobacco/nicotine status: never used tobacco/nicotine Alcohol intake: never Substance/Drug Use: never Lives independently: Yes Household members: spouse Marital status: Current occupational status: retired Physical Exam 2 Narrative: EXAM NARRATIVE: The patient is alert answers all questions in a goal-directed fashion and appears to be comfortable. Const: COMMON NORMALS: no acute distress, average body habitus and alert G ENERAL APPEARANCE: cooperative, comfortable and well kempt O RIENTATION/CONSCIOUSNESS: Yes awake, Yes oriented to person and Yes oriented to place HENMT: COMMON NORMALS: normocephalic, atraumatic, Normal nasal mucous membranes and turbinates present, moist oral mucous membranes and oropharynx normal HEAD & SCALP: normocephalic and atraumatic FACE & SINUS: normal facial exam and face symmetric NOSE: Normal nasal mucous membranes and turbinates present Eye: COMMON NORMALS: Equal, round and reactive pupils present, EOMs intact bilaterally and conjunctivae normal CONJUNCTIVA: Yes conjunctivae normal P UPIL: Yes Equal, round and reactive pupils present Neck/C-Spine: COMMON NORMALS: full ROM, no lymphadenopathy, supple, no meningeal signs and no JVD Chest: COMMONS NORMALS: normal inspection of the chest Resp: COMMON NORMALS: normal respiratory effort, No retractions, No use of accessory muscles and clear to auscultation bilaterally AUSCULTATION: clear to auscultation bilaterally Cardio: COMMON NORMALS: no JVD, regular rate, regular rhythm, No murmurs present (Cardio) and Peripheral pulses 2+ throughout RATE: regular rate R HYTHM: regular rhythm PERIPHERAL PULSES: Peripheral pulses 2+ throughout GI: COMMON NORMALS: Normal to inspection, nondistended, normoactive bowel sounds present, Soft to palpation, non-tender, No hepatosplenomegaly present and no masses PALPATION: Yes Soft to palpation and Yes No hepatosplenomegaly present : COMMON NORMALS: Yes no CVA tenderness BLADDER/KIDNEY EXAM: Yes no CVA tenderness Back/Pelvis: COMMON NORMALS: no CVA tenderness, thoracic and lumbar spine normal to inspection, no thoracic nor lumbar tenderness, thoraco-lumbar ROM normal and straight leg raise negative bilaterally Extremity: COMMON NORMALS: normal to inspection, full ROM, capillary refill normal, no joint enlargement, no calf tenderness and no pedal edema Neuro: COMMON NORMALS: moves all extremities, no focal motor deficits and no sensory deficits noted SENSORIUM/ORIENTATION: Yes alert, Yes oriented to person and Yes oriented to place MENINGEAL SIGNS: Yes no meningeal signs O THER: NIH stroke testing was performed. Her total score is 0 at this time. Psych: COMMON NORMALS: mental status grossly normal APPEARANCE: Yes well kempt Skin: COMMON NORMALS: no rashes or lesions noted, no wounds and turgor normal GENERAL SKIN EXAM: no rashes or lesions noted and turgor normal Course 2 Reevaluation(s): Reevaluation #1: Patient is had the benefit of emergency department evaluation and treatment. She states she feels markedly improved and is ambulated to the bathroom back unaided without any difficulty. She denies any chest pain shortness of breath lightheadedness dizziness etc. Clinical examination reveals her to be stable alert and unremarkable with no new or focal findings. To her desire to be discharged at this point we have no evidence of an ongoing emergency medical condition. Likely because of her multiple loose stools yesterday she had some volume depletion as a result of that and had a near syncopal episode this morning. Certainly no evidence at this time to suggest central nervous system cardiovascular etc. pathology ongoing. Time: 10:40 Vital Signs: Vital signs: Vital Signs Temperature 97.7 F 01/07/24 06:12 Pulse Rate 87 01/07/24 10:08 Respiratory Rate 18 01/07/24 10:08 Blood Pressure 197/95 01/07/24 10:08 Pulse Oximetry 98 01/07/24 10:08 Oxygen Delivery Me thod Room Air 01/07/24 06:12 MDM - Weakness Medical Decision Making Patient with a history of constipation who treated yourself at home for that condition and had multiple repetitive stools prior to admission who presented to the emergency department symptoms that sound consistent with near syncope. There was no focal weakness etc. 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 The patient received evaluation in the emergency department to ensure no evidence of occult ACS, volume depletion, anemia or other potential causes of her current presentation. Serial EKGs were reassuring however she had an initial troponin slightly over the URL and a repeat troponin actually had no delta therefore mitigating against ACS or ongoing cardiac ischemia. No evidence of arrhythmias or other concerning findings. Hemoglobin is in normal range. She received IV fluids in the emergency department. She had a repeat evaluations which showed her to be alert without any focal findings and able to ambulate unaided without difficulty. She is being discharged to home without any evidence of an ongoing emergency medical condition. She voiced understanding. She was appreciative of care. She prefers to use her current regimen of Pepto-Bismol for her chronic constipation. Lab Data I reviewed the patient's lab results. 01/07/24 06:38 01/07/24 06:[address] 01/07/24 06:54 IMPRESSION: 1. No acute intracranial hemorrhage or mass effect. 2. Changes of microvascular disease. 3. No definite acute infarct by CT, see above. 4. Paranasal sinus findings as discussed above. 5. Other findings discussed above. Laboratory Results WBC 9.23 10^3/uL (3.29-11.43) 01/07/24 06:38 RBC 4.32 10^6/uL (3.85-5.65) 01/07/24 06:38 Hgb 13.50 g/dL (11.27-16.99) 01/07/24 06:38 Hct 40.6 % (36-47) 01/07/24 06:38 MCV 94.0 fl (85-98) 01/07/24 06:38 MCH 31.3 pg (27-33) 01/07/24 06:38 MCHC 33.3 g/dL (30-55) 01/07/24 06:38 RDW 13.6 % (12.1-15.1) 01/07/24 06:38 Plt Count 239 10^3/cmm (157-399) 01/07/24 06:38 MPV 10.0 fL (7.4-10.4) 01/07/24 06:38 Neut % (Auto) 61.7 % 01/07/24 06:38 Lymph % (Auto) 23.5 % 01/07/24 06:38 Russell % (Auto) 11.1 % 01/07/24 06:38 Eos % (Auto) 2.5 % 01/07/24 06:38 Baso % (Auto) 1.0 % 01/07/24 06:38 Neut # (Auto) 5.70 10^3/uL (1.8-7.7) 01/07/24 06:38 Lymph # (Auto) 2.2 10^3/uL (0.8-4.8) 01/07/24 06:38 Russell # (Auto) 1.0 10^3/uL (0.2-0.9) H 01/07/24 06:38 Eos # (Auto) 0.2 10^3/uL (0.0-0.8) 01/07/24 06:38 Baso # (Auto) 0.1 10^3/uL (0.0-0.1) 01/07/24 06:38 Nucleated RBC % (auto) 0 % 01/07/24 06:38 Nucleated RBCs # 0.0 /100WBC 01/07/24 06:38 Sodium 137 mmol/L (136-145) 01/07/24 06:38 Potassium 4.2 mmol/L (3.5-5.1) 01/07/24 06:38 Chloride 102 mmol/L (98-107) 01/07/24 06:38 Carbon Dioxide 27 mmol/L (22-29) 01/07/24 06:38 Anion Gap 12.2 (5-19) 01/07/24 06:38 BUN 22 mg/dL (8-23) 01/07/24 06:38 Creatinine 0.6 mg/dL (0.5-0.9) 01/07/24 06:38 GFR Calculation Not Reportable 01/07/24 06:38 Glucose 124 mg/dL (65-115) H 01/07/24 06:38 POC Glucose 122 mg/dL (70-110) H 01/07/24 06:21 Calculated Osmolality 289 mOsm/kg (285-295) 01/07/24 06:38 Calcium 9.5 mg/dL (8.5-10.5) 01/07/24 06:38 Magnesium 2.2 mg/dL (1.7-2.3) 01/07/24 06:38 Total Bilirubin 0.3 mg/dL (0.15-1.2) 01/07/24 06:38 AST 34 U/L (0-32) H 01/07/24 06:38 ALT 18 U/L (0-33) 01/07/24 06:38 Alkaline Phosphatase 73 U/L (35-105) 01/07/24 06:38 Troponin T Baseline 17 ng/L (0-10) H 01/07/24 06:38 Troponin T 120 Minute 16.75 ng/L (0-10) H 01/07/24 08:38 Delta Troponin T -0.25 ABS# (0-10) L 01/07/24 08:38 Total Protein 6.6 g/dL (6.6-8.7) 01/07/24 06:38 Albumin 4.0 g/dL (3.5-5.2) 01/07/24 06:38 Globulin 2.6 g/dL (1.3-4.6) 01/07/24 06:38 TSH 2.49 uIU/mL (0.27-4.20) 01/07/24 06:38 Urine Color Straw (Yellow) 01/07/24 10:00 Urine Appearance Clear (CLEAR) 01/07/24 10:00 Urine pH 9 (5-7) H 01/07/24 10:00 Ur Specific [place] 1.010 (1.005-1.030) 01/07/24 10:00 Urine Protein Neg (Negative) 01/07/24 10:00 Urine Glucose (UA) Norm (Normal) 01/07/24 10:00 Urine Ketones Negative (Negative) 01/07/24 10:00 Urine Blood Neg (Negative) 01/07/24 10:00 Urine Nitrate Negative (Negative) 01/07/24 10:00 Urine Bilirubin Neg (Negative) 01/07/24 10:00 Prot Sulfosalicylic Acd Negative (Negative) 01/07/24 10:00 Urine Urobilinogen Neg mg/dL (Negative) 01/07/24 10:00 Ur Leukocyte Esterase Negative (Negative) 01/07/24 10:00 All radiology interpretation(s) finalized by discharge EKG Data EKG 1: I personally reviewed and interpreted this EKG as follows: Interpretation: Contemporaneous review of EKG reveals ventricular rate of 81 bpm. The computer interpretation listed the underlying rhythm is atrial fibrillation. I do not feel that this is atrial fibrillation I feel like that this is sinus rhythm with a borderline first-degree AV block. She may be experiencing sinus arrhythmia. QRS duration is normal corrected QT intervals normal. She has some nonspecific ST-T wave changes isolated in V2 6 and limb lead II. No prior history of atrial fibrillation noted in past EKGs. EKG 2: I personally reviewed and interpreted this EKG as follows: Interpretation: Second EKG this visit reveals a ventricular rate of 71 bpm. She has a slightly prolonged MS interval at 212 ms. She has a widened QRS duration consistent with a left bundle branch block pattern no acute ischemic changes. This is essentially unchanged as compared with prior EKG this visit. The computer generated atrial fibrillation interpretation is no longer present which is consistent with my earlier interpretation. Discharge Plan Discharge Patient Disposition: Home Clinical Impression: Near syncope, Fluid volume depletion, Chronic constipation Condition: Stable Prescriptions: No Action acetaminophen [Tylenol Extra Strength] 500 mg tablet 500 mg PO Q6H PRN (Reason: pain) ipratropium bromide 21 mcg (0.03 %) spray,non-aerosol 2 spray intranasal TID PRN (Reason: Allergy Symptoms) Qty: 30 3RF Rx Instructions: USE 2 SPRAY(S) IN EACH NOSTRIL THREE TIMES DAILY multivitamin Tablet 1 tab PO DAILY brimonidine [Alphagan P] 0.1 % drops 1 drp ophthalmic (eye) BID Rx Instructions: BOTH EYES carboxymethylcellulose sodium [Refresh Tears] 0.5 % Drops 1 drp OPHTHALMIC (EYE) BEDTIME calcium carbonate-vitamin D3 [Calcarb 600 With Vitamin D] 600 mg-10 mcg (400 unit) Tablet 1 tab PO DAILY PreserVision AREDS-2 250-90-40-1 mg Capsule 1 tab PO BID potassium citrate 99 mg Capsule 99 mg PO DAILY Discharge Orders: Discharge ED (Routine); Ordered 01/07/24 Ordered By: Esa Roth Referrals: Jackson Yi MD [Primary Care Provider] - 2 weeks Discharge Diet: Advance as tolerated Discharge Activity: Increase activity as tolerated Patient Instructions: Opioid Safety, Pain Management Activity Restrictions/Additional Instructions: Increase your fluid intake to approximately 2 quarts of water and/or sports drinks like Gatorade Powerade etc. daily. Continue all your usual medications. If it anytime you have any sustained chest pain for more than 30 minutes, feeling like you are passing out, return to the emergency department or call 911. Continue your usual diet, Pepto-Bismol use or what other regimen you feel is helpful for you with your chronic constipation. Coding Level of Care Code ED Laundry Pricing Clerk for Hardy Enriquez
--- NOTE | 2024-01-07 06:54 | CTR_ITS ---
PROCEDURE INFORMATION: Exam: CT Head Without Contrast Exam date and time: 01/07/2024 7:00 AM Age: 78 years old Clinical indication: Dizziness; Additional info: Question of facial droop-no other focal TECHNIQUE: Imaging protocol: Computed tomography of the head without contrast. Radiation optimization: All CT scans at this facility use at least one of these dose optimization techniques: automated exposure control; mA and/or kV adjustment per patient size (includes targeted exams where dose is matched to clinical indication); or iterative reconstruction. COMPARISON: CT head wo con* [id number] 12/23/2022 1:41 AM RADIATION DOSE METRICS: Total DLP (mGy-cm): 999.88 FINDINGS: Brain: No acute intracranial hemorrhage or mass effect. There is decreased attenuation in the periventricular white matter, likely from microvascular disease. No definite acute infarct by CT. MRI would be more sensitive/specific for detection, as clinically directed. Cerebral ventricles: Ventricle size is normal for age. Paranasal sinuses: Partial opacification of the right frontal and right ethmoid sinuses, similar to the prior exam. Included paranasal sinuses otherwise appear essentially clear. Mastoid air cells: No significant acute finding. Bones/joints: No definite acute skull fracture. Soft tissues: No significant acute finding. Vasculature: Vascular calcifications in the internal carotid arteries. CT/CT head wo con* [id number] IMPRESSION: 1. No acute intracranial hemorrhage or mass effect. 2. Changes of microvascular disease. 3. No definite acute infarct by CT, see above. 4. Paranasal sinus findings as discussed above. 5. Other findings discussed above.
[2024-01-07 06:59] LABS: Basophils # 0.1 10^3/uL (0.0-0.1); Eosinophils # 0.2 10^3/uL (0.0-0.8); Eosinophils % 2.5 %; Hematocrit 40.6 % (36-47); Lymphocytes # 2.2 10^3/uL (0.8-4.8); Lymphocytes % 23.5 %; Mean Corpuscular HGB Conc 33.3 g/dL (30-55); Mean Corpuscular Hemoglobin 31.3 pg (27-33); Monocytes % 11.1 %; Neutrophils % 61.7 %; Nucleated Red Blood Cells % 0 %; Platelet Count 239 10^3/cmm (157-399); Red Blood Count 4.32 10^6/uL (3.85-5.65); Red Cell Distribution Width 13.6 % (12.1-15.1); White Blood Count 9.23 10^3/uL (3.29-11.43)
[2024-01-07 07:10] LABS: Troponin(5th) Baseline 17 ng/L (0-10)
[2024-01-07 07:20] LABS: Alanine Aminotransferase 18 U/L (0-33); Alkaline Phosphatase 73 U/L (35-105); Blood Urea Nitrogen 22 mg/dL (8-23); Calcium 9.5 mg/dL (8.5-10.5); Carbon Dioxide 27 mmol/L (22-29); Chloride 102 mmol/L (98-107); Creatinine Clr Calc Pharmacy 45.4113; Globulin 2.6 g/dL (1.3-4.6); Glucose 124 mg/dL (65-115); Magnesium 2.2 mg/dL (1.7-2.3); Osmolality Calculated 289 mOsm/kg (285-295); Sodium 137 mmol/L (136-145); Thyroid Stimulating Hormone 2.49 uIU/mL (0.27-4.20); Total Bilirubin 0.3 mg/dL (0.15-1.2); Total Protein 6.6 g/dL (6.6-8.7)
[2024-01-07] MEDS: lactated ringers 1,000 ML 999 ML IV (07:21)
[2024-01-07 07:22] LABS: Anion Gap 12.2 (5-19); Aspartate Amino Transferase 34 U/L (0-32); Potassium 4.2 mmol/L (3.5-5.1)
--- NOTE | 2024-01-07 08:45 | ECG_ITS ---
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 Measurements Intervals [place] Rate: 71 P: 36 MA: 212 QRS: -5 QRSD: 120 T: 20 QT: 409 QTc: 447 Interpretive Statements SINUS RHYTHM WITH FIRST DEGREE AV BLOCK WITH OCCASIONAL SUPRAVENTRICULAR PREMATURE COMPLEXES LEFT BUNDLE BRANCH BLOCK [120+ ms QRS DURATION, 80+ ms Q/S IN V1/V2, 85+ ms R IN I/aVL/V5/V6] Compared to ECG 01/07/2024 06:15:55 First degree AV block now present Left bundle-branch block now present Atrial fibrillation no longer present Myocardial infarct finding no longer present Electronically Signed On 01-07-2024 18:02:30 FOOT WORKER by Gustabo Orta M.D. [email or web address]
[2024-01-07 09:11] LABS: Troponin 5 2HR 16.75 ng/L (0-10)
[2024-01-07 09:13] LABS: Troponin 5 2HR Delta -0.25 ABS# (0-10)
[2024-01-07 10:08] VITALS: BP 197/95; PULSE 87; RESP 18; O2SAT 98
[2024-01-07 10:13] LABS: Add Urine Microscopic? NO; Charge for UA Resulting for Rev
[2024-01-07 10:22] LABS: Bilirubin Urine Neg (Negative); Blood Urine Neg (Negative); Glucose Urine UA Norm (Normal); Ketones Urine Negative (Negative); Leukocyte Esterase Urine Negative (Negative); Nitrate Urine Negative (Negative); Protein Urine Neg (Negative); Sulfosalicylic Acid Urine Negative (Negative); Urine Appearance Clear (CLEAR); Urine Color Straw (Yellow); Urobilinogen Urine Neg (Negative); pH Urine 9 (5-7)
[2024-01-07 11:04] VITALS: PULSE 86; RESP 18; O2SAT 98
== END 2024-01-07 11:05 | disposition home or self-care (01) ==
PROVIDERS: Emergency Provider Emergency Medicine; PCP Family Medicine
DX: R55 Syncope and collapse (principal); E86.9 Volume depletion, unspecified; K59.00 Constipation, unspecified; E78.5 Hyperlipidemia, unspecified; Z85.3 Personal history of malignant neoplasm of breast; Z92.3 Personal history of irradiation; Z86.73 Personal history of transient ischemic attack (TIA), and cerebral infarction without residual deficits
CPT/HCPCS: 36415; 36416; 70450; 71045; 80053; 81003; 82962; 83735; 84443; 84484; 85025; 93005; 96360; 99285; J7120

== ENCOUNTER 2024-01-11 10:34 | Outpatient (CLI) | payer MEDICARE, SELFPAY ==
--- NOTE | 2024-01-11 11:15 | USCV_ITS ---
Jenna Nye Age: 78 Gender: F : 1945 Exam Date: 01/11/2024 10:58 Ordering Phys: Giuliano Jonas MD (Andy) ([email or web address] [place]) Technologist: CT Exam [place] [facility] [place] Indication: stenosis, previous rt cea Risk Factors: Previous Vascular Surgery: Right Brachial BP: / Left Brachial BP: / Right Left Velocity (cm/s) Spectral Plaque Velocity (cm/s) Spectral Plaque Syst/Diast Broadening Syst/Diast Broadening 76.30/ 15.40 Prox CCA 57.70 / 12.70 62.10/ 18.00 Mid CCA 52.50 / 12.30 81.50/ 18.00 Distal CCA 45.60 / 11.30 40.40/ 17.00 Prox ICA 225.30/ 77.20 60.50/ 19.30 Mid ICA 237.60/ 54.80 80.40/ 26.70 Distal ICA 91.40 / 14.80 226.50 ECA 86.50 0.70 ICA/CCA 5.20 Occluded Vertebral Antegrade / cm/s 61.50/ 16.50 cm/s Bi Subclavian Bi 66.10 99.20 FINDINGS Comparison:. 07/02/23 Prior right CEA. Mild plaque , no recurrent stenosis. Increase in velocity and tortuosity left ICA since the prior exam. Moderate elevation ICA diastolic velocity. Right vertebral artery not identifed. Antegrade left vertebral artery. CONCLUSIONS Left ICA stenosis 70-99%. Velocity is increasing. Right ICA stenosis < 50%. Non visualized right vertebral artery. Dr. Ernestina Sethi DO (Electronically Signed) Final Date: 11 January 2024 12:16 S
== END 2024-01-11 10:35 | disposition home or self-care (01) ==
LOC: RAD 10:34
PROVIDERS: PCP Family Medicine; Visit Provider Thoracic Surgery (Cardiothoracic Vascular Surgery)
DX: I65.23 Occlusion and stenosis of bilateral carotid arteries (principal)
CPT/HCPCS: 93880

== ENCOUNTER 2024-01-18 09:20 | Emergency (ER) | payer MEDICARE, SELFPAY ==
[2024-01-18 09:25] VITALS: BP 183/96; PULSE 81; RESP 16; TEMP 36.6; O2SAT 100
[2024-01-18] MEDS: ondansetron 2 mg/ML SDV 2 mL 4 MG IVP (09:48)
[2024-01-18] MEDS: sodium chloride 0.9% 1,000 ML 999 ML IV (09:49)
[2024-01-18 09:53] LABS: Basophils # 0.1 10^3/uL (0.0-0.1); Eosinophils # 0.2 10^3/uL (0.0-0.8); Eosinophils % 2.1 %; Lymphocytes # 2.2 10^3/uL (0.8-4.8); Lymphocytes % 28.5 %; Mean Corpuscular HGB Conc 33.5 g/dL (30-55); Mean Corpuscular Hemoglobin 31.5 pg (27-33); Mean Corpuscular Volume 94.1 fl (85-98); Mean Platelet Volume 9.1 fL (7.4-10.4); Monocytes # 0.7 10^3/uL (0.2-0.9); Neutrophils # 4.51 10^3/uL (1.8-7.7); Neutrophils % 59.1 %; Nucleated Red Blood Cells % 0 %; Platelet Count 251 10^3/cmm (157-399); Red Blood Count 4.57 10^6/uL (3.85-5.65); Red Cell Distribution Width 13.5 % (12.1-15.1); White Blood Count 7.64 10^3/uL (3.29-11.43)
--- NOTE | 2024-01-18 09:59 | PC.PHAR ---
Addendum entered by Jessi Mayo 01/18/24 10:00: ext med history shows amlodipine 2.5mg take two tabs =5mg daily filled on 10/01/23 30d/s pt states does not take Original Note: pt states she takes care of her own medications-pt states she takes no pills pt states she only has prescription eye drops-pt states that she takes milk of mag every am-
--- NOTE | 2024-01-18 10:13 | CT_ITS ---
WS: [id number] CT ABDOMEN PELVIS TECHNIQUE: Contrast-enhanced CT of the abdomen and pelvis with coronal and sagittal reformatted image s. CLINICAL INFORMATION: abd pain/chronic diarrhea COMPARISON: CT 2022 DLP: 444.[address] scans at [facility] use at least one of these dose optimization techniques: automated e xposure control; mA and/or kV adjustment per patient size (includes targeted exams where dose is matc hed to clinical indication); or iterative reconstruction. FINDINGS: Colon is decompressed. Mild induration about the transverse colon and LEFT descending colon suspicious for infectious or inflammatory colitis. Extensive sigmoid diverticulosis. Sigmoid colon i ncompletely visualized due to extensive beam hardening artifact from bilateral THAs. Suggestion of mi ld wall thickening of the sigmoid colon suspicious for diverticulitis. Prior hysterectomy and cholecystectomy. Mild diffuse fatty infiltration of the liver. Small esophagea l hiatal hernia. Normal portal vein and splenic vein. Air-fluid level in the stomach with food produc ts. Diffuse fatty atrophy of the pancreas. Splenic artery calcifications. Normal caliber abdominal ao rta. Aortic calcification. Adrenal glands are normal. Normal renal parenchymal enhancement. No hydronephrosis. Bilateral THAs degrade images in the pelvis. Small fat-containing LEFT inguinal hernia. Small bladder cystocele. No evidence of high-grade small or large bowel obstruction. Moderate spondylitic changes lumbar spine. Lung bases are well aerated. IMPRESSION: 1. Suspected transverse colon and LEFT descending colon infectious or inflammatory colitis 2. Sigmoid colon incompletely visualized due to extensive beam hardening artifact from bilateral YASIR s. Mild wall thickening in the sigmoid colon with extensive diverticulosis. Consider sigmoid divertic ulitis. 3. Prior hysterectomy and cholecystectomy. 4. Small esophageal hernia. 5. No other acute findings.
--- NOTE | 2024-01-18 10:13 | W.ED.NAVMDI ---
HPI - Nausea/Vomiting/Diarrhea General: Chief complaint: Nausea/Vomiting/Diarrhea Stated complaint: Diarrhea Time Seen by Provider: 01/18/24 09:25 Source: patient Mode of arrival: EMS History of Present Illness: 78-year-old female presents emergency room complaining of chronic diarrhea for the last week. Denies hematochezia melena hematemesis cough cramps no dysuria urgency or frequency no fever sweats or chills no recent oral antibiotics. Patient states she chronically has difficulty with her bowels ranging from constipation diarrhea she has had several CTs and ER visits previously for constipation. She lists on her medicine list magnesium Ex-Lax and fleets enemas using daily as needed. MD elicited complaint: diarrhea Onset (ago): minute(s) Description of diarrhea: watery and semi-solid Associated nausea: Yes Associated symtoms: Reports nausea; Denies chest pain or dysuria Review of Systems Const: Denies: fever(s) or chills Card: Denies: chest pain Resp: Denies: dyspnea GI: Reports: nausea and diarrhea; Denies: abdominal pain, vomiting, hematemesis, hematochezia or melena : Denies: flank pain, dysuria, urinary frequency or urinary urgency Musc: Denies: neck pain or back pain Skin/Breast: Denies: rash PFSH ED PFSH: Medical History GERD (gastroesophageal reflux disease) Bilateral carotid artery stenosis without cerebral infarction Closed head injury Hyperlipidemia 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 disc disorder 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 region Lumbar stenosis without neurogenic claudication Stenosis of cervical spine with myelopathy 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 Pain management contract signed HX: breast cancer ER MA negative, 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 status post radiation therapy and hormonal therapy, currently on Femara Stroke (cerebrum) Hx of stroke in February 07, 2019 Spondylolisthesis of cervical region Cervical disc disorder with myelopathy of mid-cervical region Chronic bronchitis Surgical History Status post carotid endarterectomy History of left breast biopsy Port-A-Cath in place 04/16/20 History of cholecystectomy History of hysterectomy / BSO / appendectomy H/O total hip arthroplasty Right Social History Smoking and tobacco/nicotine status: never used tobacco/nicotine Alcohol intake: never Substance/Drug Use: never Lives independently: Yes Household members: spouse Marital status: Current occupational status: retired Physical Exam Const: COMMON NORMALS: no acute distress GENERAL APPEARANCE: cooperative and comfortable ORIENTATION/CONSCIOUSNESS: Yes awake, Yes oriented to person, Yes oriented to place and Yes oriented to time HENMT: COMMON NORMALS: normocephalic, atraumatic and hearing grossly normal bilaterally HEAD & SCALP: normocephalic and atraumatic Resp: COMMON NORMALS: normal respiratory effort, No retractions, No use of accessory muscles and clear to auscultation bilaterally AUSCULTATION: clear to auscultation bilaterally Cardio: COMMON NORMALS: regular rate, regular rhythm and No murmurs present (Cardio) RATE: regular rate RHYTHM: regular rhythm GI: COMMON NORMALS: Soft to palpation and No hepatosplenomegaly present AUSCULTATION: Yes normoactive bowel sounds PALPATION: Yes Soft to palpation, No Tenderness to palpation present (GI), No Guarding due to palpation present (GI) and Yes No hepatosplenomegaly present Extremity: COMMON NORMALS: normal to inspection, capillary refill normal, no clubbing, cyanosis or edema, no calf tenderness and no pedal edema Neuro: SENSORIUM/ORIENTATION: Yes oriented to person, Yes oriented to place and Yes oriented to time Skin: COMMON NORMALS: no rashes or lesions noted GENERAL SKIN EXAM: no rashes or lesions noted Course Vital Signs: Vital signs: Vital Signs Temperature 97.8 F 01/18/24 09:25 Pulse Rate 80 01/18/24 13:08 Respiratory Rate 16 01/18/24 09:25 Blood Pressure 150/82 01/18/24 13:08 Pulse Oximetry 100 01/18/24 13:08 Oxygen Delivery Me thod Room Air 01/18/24 10:55 MDM - Nausea/Vomiting/Diarrhea Medical Decision Making Patient not have any episodes of diarrhea here CT shows diverticulitis and colitis will start on antibiotics clear liquid diet antiemetics and follow-up with primary care doctor return if is worsening symptoms. We did order C. difficile return with a stool sample when she is able Medical Records I reviewed the patient's medical records. Lab Data I reviewed the patient's lab results. 01/18/24 09:47 01/18/24 09:47 Laboratory Results WBC 7.64 10^3/uL (3.29-11.43) 01/18/24 09:47 RBC 4.57 10^6/uL (3.85-5.65) 01/18/24 09:47 Hgb 14.40 g/dL (11.27-16.99) 01/18/24 09:47 Hct 43.0 % (36-47) 01/18/24 09:47 MCV 94.1 fl (85-98) 01/18/24 09:47 MCH 31.5 pg (27-33) 01/18/24 09:47 MCHC 33.5 g/dL (30-55) 01/18/24 09:47 RDW 13.5 % (12.1-15.1) 01/18/24 09:47 Plt Count 251 10^3/cmm (157-399) 01/18/24 09:47 MPV 9.1 fL (7.4-10.4) 01/18/24 09:47 Neut % (Auto) 59.1 % 01/18/24 09:47 Lymph % (Auto) 28.5 % 01/18/24 09:47 [place] % (Auto) 9.0 % 01/18/24 09:47 Eos % (Auto) 2.1 % 01/18/24 09:47 Baso % (Auto) 1.0 % 01/18/24 09:47 Neut # (Auto) 4.51 10^3/uL (1.8-7.7) 01/18/24 09:47 Lymph # (Auto) 2.2 10^3/uL (0.8-4.8) 01/18/24 09:47 Stephenson # (Auto) 0.7 10^3/uL (0.2-0.9) 01/18/24 09:47 Eos # (Auto) 0.2 10^3/uL (0.0-0.8) 01/18/24 09:47 Baso # (Auto) 0.1 10^3/uL (0.0-0.1) 01/18/24 09:47 Nucleated RBC % (auto) 0 % 01/18/24 09:47 Nucleated RBCs # 0.0 /100WBC 01/18/24 09:47 Sodium 140 mmol/L (136-145) 01/18/24 09:47 Potassium 4.0 mmol/L (3.5-5.1) 01/18/24 09:47 Chloride 101 mmol/L (98-107) 01/18/24 09:47 Carbon Dioxide 29 mmol/L (22-29) 01/18/24 09:47 Anion Gap 14.0 (5-19) 01/18/24 09:47 BUN 22 mg/dL (8-23) 01/18/24 09:47 Creatinine 0.6 mg/dL (0.5-0.9) 01/18/24 09:47 GFR Calculation Not Reportable 01/18/24 09:47 Glucose 122 mg/dL (65-115) H 01/18/24 09:47 Calculated Osmolality 295 mOsm/kg (285-295) 01/18/24 09:47 Calcium 10.2 mg/dL (8.5-10.5) 01/18/24 09:47 Total Bilirubin 0.3 mg/dL (0.15-1.2) 01/18/24 09:47 AST 28 U/L (0-32) 01/18/24 09:47 ALT 20 U/L (0-33) 01/18/24 09:47 Alkaline Phosphatase 82 U/L (35-105) 01/18/24 09:47 Total Protein 7.4 g/dL (6.6-8.7) 01/18/24 09:47 Albumin 4.2 g/dL (3.5-5.2) 01/18/24 09:47 Globulin 3.2 g/dL (1.3-4.6) 01/18/24 09:47 Urine Color Yellow (Yellow) 01/18/24 09:55 Urine Appearance Clear (CLEAR) 01/18/24 09:55 Urine pH 7 (5-7) 01/18/24 09:55 Ur Specific [place] 1.010 (1.005-1.030) 01/18/24 09:55 Urine Protein Neg (Negative) 01/18/24 09:55 Urine Glucose (UA) Norm (Normal) 01/18/24 09:55 Urine Ketones Negative (Negative) 01/18/24 09:55 Urine Blood Neg (Negative) 01/18/24 09:55 Urine Nitrate Negative (Negative) 01/18/24 09:55 Urine Bilirubin Neg (Negative) 01/18/24 09:55 Urine Urobilinogen Norm mg/dL (Negative) 01/18/24 09:55 Ur Leukocyte Esterase 1+ (Negative) H 01/18/24 09:55 Urine RBC None /hpf (0-2) 01/18/24 09:55 Urine WBC 0-4 /hpf (0-5) H 01/18/24 09:55 Ur Squamous Epith Cells 5-10 /hpf (0-5) H 01/18/24 09:55 Amorphous Sediment 1+ /hpf 01/18/24 09:55 Urine Bacteria 1+ /hpf (NONE) H 01/18/24 09:55 Coronavirus 229E (PCR) Not detected (NOT DETECT) 01/18/24 10:15 SARS-CoV-2 (PCR) Not detected (NOT DETECT) 01/18/24 10:15 All radiology interpretation(s) finalized by discharge Discharge Plan Discharge Patient Disposition: Home Clinical Impression: Diverticulitis, Colitis Condition: Stable Prescriptions: New Cipro 500 mg tablet 500 mg PO BID Qty: 14 0RF ondansetron HCl 4 mg tablet 4 mg PO Q6H PRN (Reason: nausea and vomiting) Qty: 20 0RF metronidazole 500 mg tablet 500 mg PO BID 7 Days Qty: 14 0RF No Action Milk of Magnesia 400 mg/5 mL Suspension 30 ml PO QAM Pepto-Bismol 262 mg/15 mL Suspension 262 mg PO DAILY PRN (Reason: Diarrhea) Fleet Enema 19-7 gram/118 mL Enema 118 ml MA DAILY PRN (Reason: Constipation) Ex-Lax Maximum Strength 25 mg Tablet 25 mg PO DAILY PRN (Reason: Constipation) Alphagan P 0.1 % drops 1 drp ophthalmic (eye) BID Discharge Orders: Discharge ED (Routine); Ordered 01/18/24 Ordered By: Parmjit Ovalle Referrals: Jackson Yi MD [Primary Care Provider] - Discharge Diet: Clear Liquid Discharge Activity: Increase activity as tolerated Patient Instructions: Opioid Safety, Pain Management Activity Restrictions/Additional Instructions: Thank you for choosing [facility] for your healthcare needs today. Please realize this is an emergency room and that we are providing you with a medical screening exam and this may not be complete and all inclusive of all the testing and or work up that you may need to determine your ailment or severity of your illness. It is very important that you follow up as instructed or that you return to the Emergency Department should you have concerns or if your condition changes or worsens in any way. You are seen today for diarrhea. 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
[2024-01-18 10:20] LABS: Alanine Aminotransferase 20 U/L (0-33); Albumin Level 4.2 g/dL (3.5-5.2); Alkaline Phosphatase 82 U/L (35-105); Aspartate Amino Transferase 28 U/L (0-32); Blood Urea Nitrogen 22 mg/dL (8-23); Calcium 10.2 mg/dL (8.5-10.5); Carbon Dioxide 29 mmol/L (22-29); Chloride 101 mmol/L (98-107); Creatinine Clr Calc Pharmacy 45.4113; Globulin 3.2 g/dL (1.3-4.6); Glucose 122 mg/dL (65-115); Osmolality Calculated 295 mOsm/kg (285-295); Sodium 140 mmol/L (136-145); Total Bilirubin 0.3 mg/dL (0.15-1.2); Total Protein 7.4 g/dL (6.6-8.7)
[2024-01-18] MEDS: iohexol 350 mg/mL 500 mL Btl (per mL) IV (10:33)
[2024-01-18 10:55] VITALS: BP 190/80; PULSE 78; O2SAT 100
[2024-01-18 11:03] LABS: Add Urine Culture? No; Add Urine Microscopic? YES; Amorphous Sediment Urine 1+ /hpf; Bacteria Urine 1+ /hpf; Bilirubin Urine Neg (Negative); Blood Urine Neg (Negative); Glucose Urine UA Norm (Normal); Ketones Urine Negative (Negative); Leukocyte Esterase Urine 1+ (Negative); Nitrate Urine Negative (Negative); Protein Urine Neg (Negative); Urine Appearance Clear (CLEAR); Urine Color Yellow (Yellow); Urobilinogen Urine Norm (Negative); WBC Urine 0-4 /hpf (0-5); pH Urine 7 (5-7)
[2024-01-18] MEDS: hyDRALAzine 20 mg/mL INJ 1 mL 10 MG IVP (11:29)
[2024-01-18 11:30] VITALS: BP 180/82; PULSE 75; O2SAT 99
[2024-01-18 12:00] VITALS: BP 150/80; O2SAT 100
[2024-01-18 12:17] LABS: Adenovirus Not Detected (NOT DETECT); Chlamydia Pneumoniae Not Detected (NOT DETECT); Coronavirus 229E,HKU1,NL63,OC4 Not Detected (NOT DETECT); Human Metapneumovirus Not Detected (NOT DETECT); Human Rhinovirus/Enterovirus Not Detected (NOT DETECT); Influenza A Not Detected (NOT DETECT); Influenza A H1 Not Detected (NOT DETECT); Influenza A H1-2009 Not Detected (NOT DETECT); Influenza A H3 Not Detected (NOT DETECT); Influenza B Not Detected (NOT DETECT); Mycoplasma Pneumoniae Not Detected (NOT DETECT); Parainfluenza Virus Type 1 Not Detected (NOT DETECT); Parainfluenza Virus Type 2 Not Detected (NOT DETECT); Parainfluenza Virus Type 3 Not Detected (NOT DETECT); Parainfluenza Virus Type 4 Not Detected (NOT DETECT); Respiratory Syncytial Virus A Not Detected (NOT DETECT); Respiratory Syncytial Virus B Not Detected (NOT DETECT); SARS-COV-2 Not Detected (NOT DETECT)
[2024-01-18 13:08] VITALS: BP 150/82; PULSE 80; O2SAT 100
== END 2024-01-18 13:10 | disposition home or self-care (01) ==
PROVIDERS: Emergency Provider Family Medicine; PCP Family Medicine
DX: K57.92 Diverticulitis of intestine, part unspecified, without perforation or abscess without bleeding (principal); K52.9 Noninfective gastroenteritis and colitis, unspecified; Z11.52 Encounter for screening for COVID-19; E78.5 Hyperlipidemia, unspecified; Z85.3 Personal history of malignant neoplasm of breast; Z86.73 Personal history of transient ischemic attack (TIA), and cerebral infarction without residual deficits
CPT/HCPCS: 36415; 74177; 80053; 81001; 85025; 87635; 96361; 96374; 96375; 99285; J0360; J2405; J7030; Q9967

== ENCOUNTER → 2024-02-21 13:29 | Outpatient (BNVA) | payer MEDICARE, SELFPAY | PROVIDERS: PCP Family Medicine; Visit Provider Thoracic Surgery (Cardiothoracic Vascular Surgery) | DX: I65.23 Occlusion and stenosis of bilateral carotid arteries (principal) | CPT/HCPCS: 99213 ==

== ENCOUNTER 2024-03-13 14:26 | Outpatient (CLI) | payer MEDICARE, SELFPAY ==
--- NOTE | 2024-03-13 15:00 | CT_ITS ---
WS: [id number] CTA NECK TECHNIQUE: Contrast enhanced CTA of the neck with coronal and sagittal reformatted images and maximum intensity projection (MIP) images. NASCET criteria utilized. CLINICAL INFORMATION: bilat carotid stenosis COMPARISON: CTA 01/26/2023 and ultrasound 01/11/2024 DLP: 198.[address] scans at [facility] use at least one of these dose optimization techniques: automated e xposure control; mA and/or kV adjustment per patient size (includes targeted exams where dose is matc hed to clinical indication); or iterative reconstruction. FINDINGS: Emphysematous changes in the lung apices. Proximal subclavian arteries are patent. Paranasa l sinuses and mastoid air cells are well aerated. Normal posterior nasopharynx. Normal parapharyngeal fat. Advanced spondylitic changes cervical spine. RIGHT: Prior postoperative changes RIGHT CEA. No recurrent RIGHT ICA stenosis. RIGHT ICA is patent to the skull base. LEFT: LEFT common carotid artery is patent. Stenosis LEFT proximal ICA with dense calcification. Sten osis measures approximately 72% unchanged from previous with small residual eccentric lumen. LEFT ICA remains patent to the skull base. Left dominant vertebral artery. Tiny patent right vertebral artery. CT/CT angio neck [id number] IMPRESSION: 1. Prior postoperative changes RIGHT CEA. No recurrent stenosis. RIGHT ICA is patent to the skull base. 2. Stable 72% LEFT proximal ICA stenosis. 3. LEFT dominant vertebral artery. Tiny RIGHT vertebral artery remains patent. 4. No other significant interval changes.
[2024-03-13] MEDS: iohexol 300 mg/mL 100 mL Btl IV (15:08)
== END 2024-03-13 14:27 | disposition home or self-care (01) ==
LOC: RAD 14:26
PROVIDERS: PCP Family Medicine; Visit Provider Thoracic Surgery (Cardiothoracic Vascular Surgery)
DX: I65.22 Occlusion and stenosis of left carotid artery (principal)
CPT/HCPCS: 70498; Q9967

== ENCOUNTER 2024-03-14 10:12 | Oncology outpatient (recurring) (ONCR) | payer MEDICARE, SELFPAY ==
[2024-03-14 10:33] LABS: Basophils # 0.1 10^3/uL (0.0-0.1); Basophils % 0.7 %; Eosinophils # 0.1 10^3/uL (0.0-0.8); Eosinophils % 1.6 %; Hematocrit 41.3 % (36-47); Lymphocytes # 2.8 10^3/uL (0.8-4.8); Lymphocytes % 32.3 %; Mean Corpuscular HGB Conc 32.9 g/dL (30-55); Mean Corpuscular Hemoglobin 31.3 pg (27-33); Mean Corpuscular Volume 95.2 fl (85-98); Mean Platelet Volume 9.9 fL (7.4-10.4); Monocytes # 0.8 10^3/uL (0.2-0.9); Monocytes % 9.7 %; Neutrophils % 55.5 %; Nucleated Red Blood Cells % 0 %; Platelet Count 215 10^3/cmm (157-399); Red Blood Count 4.34 10^6/uL (3.85-5.65); White Blood Count 8.65 10^3/uL (3.29-11.43)
[2024-03-14 11:11] LABS: Alanine Aminotransferase 17 U/L (0-33); Albumin Level 3.9 g/dL (3.5-5.2); Alkaline Phosphatase 70 U/L (35-105); Anion Gap 12.3 (5-19); Aspartate Amino Transferase 23 U/L (0-32); Blood Urea Nitrogen 23 mg/dL (8-23); Carbon Dioxide 29 mmol/L (22-29); Chloride 103 mmol/L (98-107); Creatinine Clr Calc Pharmacy 47.1785; Globulin 3.1 g/dL (1.3-4.6); Glucose 90 mg/dL (65-115); Lactate Dehydrogenase 211 U/L (135-214); Osmolality Calculated 293 mOsm/kg (285-295); Potassium 4.3 mmol/L (3.5-5.1); Sodium 140 mmol/L (136-145); Total Bilirubin 0.4 mg/dL (0.15-1.2)
== END 2024-03-31 23:59 | disposition home or self-care (01) ==
PROVIDERS: PCP Family Medicine; Visit Provider Internal Medicine
DX: C85.99 Non-Hodgkin lymphoma, unspecified, extranodal and solid organ sites (principal); Z85.3 Personal history of malignant neoplasm of breast; Z79.899 Other long term (current) drug therapy; Z92.3 Personal history of irradiation
CPT/HCPCS: 36415; 80053; 83615; 85025; 99214

== ENCOUNTER 2024-05-25 23:41 | Emergency (ER) | payer MEDICARE, SELFPAY ==
[2024-05-25 23:44] VITALS: BP 183/100; PULSE 80; RESP 20; TEMP 37.2; O2SAT 99; BMI 25.6
--- NOTE | 2024-05-25 23:53 | CTR_ITS ---
PROCEDURE INFORMATION: Exam: CT Abdomen And Pelvis Without Contrast Exam date and time: 05/26/2024 12:40 AM Age: 78 years old Clinical indication: Abdominal pain; Generalized; Prior surgery; Surgery date: 6+ months; Surgery type: Gb. Hysterectomy. Bilat alfreda. Patient HX: C/O diffuse abd pain with constipation. History of lymphoma and breast cancer. ; Additional info: Abd pain, constipation TECHNIQUE: Imaging protocol: Computed tomography of the abdomen and pelvis without contrast. Radiation optimization: All CT scans at this facility use at least one of these dose optimization techniques: automated exposure control; mA and/or kV adjustment per patient size (includes targeted exams where dose is matched to clinical indication); or iterative reconstruction. COMPARISON: CT abdomen pelvis w con* [id number] 01/18/2024 10:31 AM RADIATION DOSE METRICS: Total DLP (mGy-cm): 399.26 FINDINGS: Tubes, catheters and devices: Catheterized urinary bladder. Lungs: Clear basilar lung parenchyma. Pleural spaces: No pleural fluid. Heart: Normal heart size. Diaphragm: Small sliding hiatal hernia. Liver: Hyperdense liver. Liver measures 15.3 cm in length. Gallbladder and biliary ducts: Prior cholecystectomy. Prior cholecystectomy. No biliary tree dilation or high-density retained stones appreciated. Pancreas: Moderate fatty atrophy of the pancreas. No visible pancreatic mass or edema. Spleen: Spleen measures 8.6 cm in length. Adrenal glands: Normal configuration. Kidneys and ureters: No evidence of obstruction. No visible inflammation. Stomach and bowel: Decompressed stomach. Normal caliber small bowel. Moderate volume fecal debris noted throughout the colon with relative decompression of the rectosigmoid. There is diverticulosis throughout the colon without evidence of acute diverticulitis. Appendix: Appendix is not seen as a discrete structure but there is no inflammation at the cecal base. Intraperitoneal space: No free air. No significant fluid collection. Vasculature: Normal caliber arterial structures. Retroaortic left renal vein. Lymph nodes: No enlarged lymph nodes. Urinary bladder: Urinary bladder is decompressed. Reproductive: Prior hysterectomy. No evidence of vaginal cuff or adnexal mass. Bones/joints: Bilateral hip prostheses are in place. Subjective bony demineralization. Adequate spinal canal. Mild bilateral sacroiliac osteoarthritis. No acute bony abnormality. Soft tissues: Fat containing indirect left inguinal hernia. CT/CT abdomen pelvis wo con [id number] IMPRESSION: 1. Moderate fecal retention with relative decompression of the rectosigmoid. Findings could represent constipation which may be symptomatic. Otherwise no acute abnormality. No evidence of bowel obstruction or urolithiasis. 2. Hyperdense liver. Differential diagnosis includes hemochromatosis as well as medication effect from amiodarone or gold. 3. Small sliding hiatal hernia. 4. No adenopathy. Spleen is normal in size.
--- NOTE | 2024-05-25 23:53 | ED_ITS ---
Documented by User: MANN Dan 05/28/24 13:32 HPI - Abdominal Pain 2 General: Chief Complaint: Weakness Stated Complaint: WEAKNESS Time Seen by Provider: 05/25/24 23:47 History of Present Illness: 78-year-old female comes in today for co mplaints of persistent diarrhea and weakness. Patient last week had significant constipation for about 1 week and had taken some medicine for her constipation. Now for the last 4 to 5 days patient has had persistent diarrhea stools. Patient states that she is unable to get to the bathroom at times due to the diarrhea persistence. Patient appears mildly unwell but not toxic. Patient appears in moderate pain. 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 status post radiation therapy and hormonal therapy, currently on Femara Stroke (cerebrum) Hx of stroke in February 07, 2019 Spondylolisthesis of cervical region Cervical disc disorder with myelopathy of mid-cervical region Chronic bronchitis Surgical History Status post carotid endarterectomy History of left breast biopsy Port-A-Cath in place 04/16/20 History of cholecystectomy History of hysterectomy / BSO / appendectomy H/O total hip arthroplasty Right Social History Smoking and tobacco/nicotine status: never used tobacco/nicotine Alcohol intake: never Substance/Drug Use: never Lives independently: Yes Household members: spouse Marital status: Current occupational status: retired Physical Exam 2 Const: COMMON NORMALS: alert HENMT: COMMON NORMALS: normocephalic HEAD & SCALP: normocephalic Neck/C-Spine: COMMON NORMALS: full ROM Resp: COMMON NORMALS: normal respiratory effort Cardio: COMMON NORMALS: regular rate and regular rhythm RATE: regular rate RHYTHM: regular rhythm GI: AUSCULTATION: Yes Hyperactive bowel sounds present Back/Pelvis: COMMON NORMALS: thoracic and lumbar spine normal to inspection Extremity: COMMON NORMALS: full ROM Neuro: SENSORIUM/ORIENTATION: Yes alert Skin: COMMON NORMALS: turgor normal GENERAL SKIN EXAM: turgor normal Course 2 Vital Signs: Vital signs: Vital Signs Temperature 98.9 F 05/25/24 23:44 Pulse Rate 72 05/26/24 02:30 Respiratory Rate 20 H 05/25/24 23:44 Blood Pressure 183/100 05/25/24 23:44 Pulse Oximetry 98 05/26/24 02:30 MDM - Abdominal Pain Medical Decision Making 78-year-old female comes in today for complaints of abdominal pain and diarrhea stools. Patient appears mildly unwell but not toxic. Patient appears in mild to moderate pain. Abdomen is soft with generalized tenderness. Vital signs are normal except for some elevation in blood pressure. Differential diagnosis includes bowel obstruction, diverticulitis, adverse drug effect, dehydration, urinary tract infection. Lab Data 05/25/24 23:50 05/26/24 00:35 Labs/Radiology: Radiology Impressions Abdomen/Pelvis CT 05/25/24 23:53 IMPRESSION: 1. Moderate fecal retention with relative decompression of the rectosigmoid. Findings could represent constipation which may be symptomatic. Otherwise no acute abnormality. No evidence of bowel obstruction or urolithiasis. 2. Hyperdense liver. Differential diagnosis includes hemochromatosis as well as medication effect from amiodarone or gold. 3. Small sliding hiatal hernia. 4. No adenopathy. Spleen is normal in size. Laboratory Results WBC 9.01 10^3/uL (3.29-11.43) 05/25/24 23:50 RBC 4.85 10^6/uL (3.85-5.65) 05/25/24 23:50 Hgb 15.20 g/dL (11.27-16.99) 05/25/24 23:50 Hct 45.7 % (36-47) 05/25/24 23:50 MCV 94.2 fl (85-98) 05/25/24 23:50 MCH 31.3 pg (27-33) 05/25/24 23:50 MCHC 33.3 g/dL (30-55) 05/25/24 23:50 RDW 13.8 % (12.1-15.1) 05/25/24 23:50 Plt Count 261 10^3/cmm (157-399) 05/25/24 23:50 MPV 10.5 fL (7.4-10.4) H 05/25/24 23:50 Neut % (Auto) 43.7 % 05/25/24 23:50 Lymph % (Auto) 40.7 % 05/25/24 23:50 [place] % (Auto) 11.7 % 05/25/24 23:50 Eos % (Auto) 2.6 % 05/25/24 23:50 Baso % (Auto) 1.2 % 05/25/24 23:50 Neut # (Auto) 3.94 10^3/uL (1.8-7.7) 05/25/24 23:50 Lymph # (Auto) 3.7 10^3/uL (0.8-4.8) 05/25/24 23:50 [place] # (Auto) 1.1 10^3/uL (0.2-0.9) H 05/25/24 23:50 Eos # (Auto) 0.2 10^3/uL (0.0-0.8) 05/25/24 23:50 Baso # (Auto) 0.1 10^3/uL (0.0-0.1) 05/25/24 23:50 Nucleated RBC % (auto) 0 % 05/25/24 23:50 Nucleated RBCs # 0.0 /100WBC 05/25/24 23:50 Sodium 140 mmol/L (136-145) 05/26/24 00:35 Potassium 3.5 mmol/L (3.5-5.1) 05/26/24 00:35 Chloride 100 mmol/L (98-107) 05/26/24 00:35 Carbon Dioxide 27 mmol/L (22-29) 05/26/24 00:35 Anion Gap 16.5 (5-19) 05/26/24 00:35 BUN 24 mg/dL (8-23) H 05/26/24 00:35 Creatinine 0.6 mg/dL (0.5-0.9) 05/26/24 00:35 GFR Calculation Not Reportable 05/26/24 00:35 Glucose 89 mg/dL (65-115) 05/26/24 00:35 Calculated Osmolality 294 mOsm/kg (285-295) 05/26/24 00:35 Calcium 9.8 mg/dL (8.5-10.5) 05/26/24 00:35 Total Bilirubin 0.3 mg/dL (0.15-1.2) 05/26/24 00:35 AST 34 U/L (0-32) H 05/26/24 00:35 ALT 32 U/L (0-33) 05/26/24 00:35 Alkaline Phosphatase 82 U/L (35-105) 05/26/24 00:35 Troponin T Baseline 20 ng/L (0-10) H 05/26/24 00:35 Troponin T 120 Minute 17.80 ng/L (0-10) H 05/26/24 02:23 Delta Troponin T -2.20 ABS# (0-10) L 05/26/24 02:23 Total Protein 8.0 g/dL (6.6-8.7) 05/26/24 00:35 Albumin 4.4 g/dL (3.5-5.2) 05/26/24 00:35 Globulin 3.6 g/dL (1.3-4.6) 05/26/24 00:35 Lipase 19 U/L (13-60) 05/26/24 00:35 Urine Color Yellow (Yellow) 05/26/24 00:35 Urine Appearance Clear (CLEAR) 05/26/24 00:35 Urine pH 8 (5-7) H 05/26/24 00:35 Ur Specific [place] 1.015 (1.005-1.030) 05/26/24 00:35 Urine Protein Neg (Negative) 05/26/24 00:35 Urine Glucose (UA) Norm (Normal) 05/26/24 00:35 Urine Ketones Negative (Negative) 05/26/24 00:35 Urine Blood Neg (Negative) 05/26/24 00:35 Urine Nitrate Negative (Negative) 05/26/24 00:35 Urine Bilirubin Neg (Negative) 05/26/24 00:35 Urine Urobilinogen Neg mg/dL (Negative) 05/26/24 00:35 Ur Leukocyte Esterase Negative (Negative) 05/26/24 00:35 Discharge Plan Discharge Patient Disposition: Home Clinical Impression: Generalized weakness Constipation Qualifiers: Constipation type: unspecified constipation type Qualified Code(s): K59.00 - Constipation, unspecified Condition: Stable Prescriptions: No Action amlodipine 2.5 mg tablet 2.5 mg PO DAILY cefdinir 300 mg capsule 300 mg PO BID 5 Days Qty: 10 0RF magnesium hydroxide [Milk of Magnesia] 400 mg/5 mL Suspension 30 ml PO QPM bismuth subsalicylate [Pepto-Bismol] 262 mg/15 mL Suspension 262 mg PO DAILY PRN (Reason: Diarrhea) Fleet Enema 19-7 gram/118 mL Enema 118 ml VT DAILY PRN (Reason: Constipation) Ex-Lax Maximum Strength 25 mg Tablet 25 mg PO DAILY PRN (Reason: Constipation) brimonidine [Alphagan P] 0.1 % drops 1 drp ophthalmic (eye) BID Discharge Orders: Discharge ED (Routine); Ordered 05/26/24 Ordered By: Otis Ramirez Referrals: Jackson Yi MD [Primary Care Provider] - 1 week Patient Instructions: Constipation - Adult, Weakness (Generalized) Activity Restrictions/Additional Instructions: Thank you for choosing [facility] for your healthcare needs today. Please realize that you were seen in the emergency department and that we are providing you with an emergency medical screening exam and this may not be a complete and all exclusive of all testing and/or medical workup we may need to determine your element or severity of your illness. It is very important that you follow-up as instructed with your primary care provider or specialist for the additional evaluation and to discuss your medical treatment plan. You may return to the emergency department should you have concerns or if your condition changes or worsens in any way. 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 Pain management contract signed HX: breast cancer ER VT negative, 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 status post radiation therapy and hormonal therapy, currently on Femara Stroke (cerebrum) Hx of stroke in February 07, 2019 Spondylolisthesis of cervical region Cervical disc disorder with myelopathy of mid-cervical region Chronic bronchitis Surgical History Status post carotid endarterectomy History of left breast biopsy Port-A-Cath in place 04/16/20 History of cholecystectomy History of hysterectomy / BSO / appendectomy H/O total hip arthroplasty Right Social History Smoking and tobacco/nicotine status: never used tobacco/nicotine Alcohol intake: never Substance/Drug Use: never Lives independently: Yes Household members: spouse Marital status: Current occupational status: retired Course 2 Vital Signs: Vital signs: Vital Signs Temperature 98.9 F 05/25/24 23:44 Pulse Rate 72 05/26/24 02:30 Respiratory Rate 20 H 05/25/24 23:44 Blood Pressure 183/100 05/25/24 23:44 Pulse Oximetry 98 05/26/24 02:30 MDM - Abdominal Pain Lab Data 05/25/24 23:50 05/26/24 00:35 Labs/Radiology: Radiology Impressions Abdomen/Pelvis CT 05/25/24 23:53 IMPRESSION: 1. Moderate fecal retention with relative decompression of the rectosigmoid. Findings could represent constipation which may be symptomatic. Otherwise no acute abnormality. No evidence of bowel obstruction or urolithiasis. 2. Hyperdense liver. Differential diagnosis includes hemochromatosis as well as medication effect from amiodarone or gold. 3. Small sliding hiatal hernia. 4. No adenopathy. Spleen is normal in size. Laboratory Results WBC 9.01 10^3/uL (3.29-11.43) 05/25/24 23:50 RBC 4.85 10^6/uL (3.85-5.65) 05/25/24 23:50 Hgb 15.20 g/dL (11.27-16.99) 05/25/24 23:50 Hct 45.7 % (36-47) 05/25/24 23:50 MCV 94.2 fl (85-98) 05/25/24 23:50 MCH 31.3 pg (27-33) 05/25/24 23:50 MCHC 33.3 g/dL (30-55) 05/25/24 23:50 RDW 13.8 % (12.1-15.1) 05/25/24 23:50 Plt Count 261 10^3/cmm (157-399) 05/25/24 23:50 MPV 10.5 fL (7.4-10.4) H 05/25/24 23:50 Neut % (Auto) 43.7 % 05/25/24 23:50 Lymph % (Auto) 40.7 % 05/25/24 23:50 [place] % (Auto) 11.7 % 05/25/24 23:50 Eos % (Auto) 2.6 % 05/25/24 23:50 Baso % (Auto) 1.2 % 05/25/24 23:50 Neut # (Auto) 3.94 10^3/uL (1.8-7.7) 05/25/24 23:50 Lymph # (Auto) 3.7 10^3/uL (0.8-4.8) 05/25/24 23:50 [place] # (Auto) 1.1 10^3/uL (0.2-0.9) H 05/25/24 23:50 Eos # (Auto) 0.2 10^3/uL (0.0-0.8) 05/25/24 23:50 Baso # (Auto) 0.1 10^3/uL (0.0-0.1) 05/25/24 23:50 Nucleated RBC % (auto) 0 % 05/25/24 23:50 Nucleated RBCs # 0.0 /100WBC 05/25/24 23:50 Sodium 140 mmol/L (136-145) 05/26/24 00:35 Potassium 3.5 mmol/L (3.5-5.1) 05/26/24 00:35 Chloride 100 mmol/L (98-107) 05/26/24 00:35 Carbon Dioxide 27 mmol/L (22-29) 05/26/24 00:35 Anion Gap 16.5 (5-19) 05/26/24 00:35 BUN 24 mg/dL (8-23) H 05/26/24 00:35 Creatinine 0.6 mg/dL (0.5-0.9) 05/26/24 00:35 GFR Calculation Not Reportable 05/26/24 00:35 Glucose 89 mg/dL (65-115) 05/26/24 00:35 Calculated Osmolality 294 mOsm/kg (285-295) 05/26/24 00:35 Calcium 9.8 mg/dL (8.5-10.5) 05/26/24 00:35 Total Bilirubin 0.3 mg/dL (0.15-1.2) 05/26/24 00:35 AST 34 U/L (0-32) H 05/26/24 00:35 ALT 32 U/L (0-33) 05/26/24 00:35 Alkaline Phosphatase 82 U/L (35-105) 05/26/24 00:35 Troponin T Baseline 20 ng/L (0-10) H 05/26/24 00:35 Troponin T 120 Minute 17.80 ng/L (0-10) H 05/26/24 02:23 Delta Troponin T -2.20 ABS# (0-10) L 05/26/24 02:23 Total Protein 8.0 g/dL (6.6-8.7) 05/26/24 00:35 Albumin 4.4 g/dL (3.5-5.2) 05/26/24 00:35 Globulin 3.6 g/dL (1.3-4.6) 05/26/24 00:35 Lipase 19 U/L (13-60) 05/26/24 00:35 Urine Color Yellow (Yellow) 05/26/24 00:35 Urine Appearance Clear (CLEAR) 05/26/24 00:35 Urine pH 8 (5-7) H 05/26/24 00:35 Ur Specific [place] 1.015 (1.005-1.030) 05/26/24 00:35 Urine Protein Neg (Negative) 05/26/24 00:35 Urine Glucose (UA) Norm (Normal) 05/26/24 00:35 Urine Ketones Negative (Negative) 05/26/24 00:35 Urine Blood Neg (Negative) 05/26/24 00:35 Urine Nitrate Negative (Negative) 05/26/24 00:35 Urine Bilirubin Neg (Negative) 05/26/24 00:35 Urine Urobilinogen Neg mg/dL (Negative) 05/26/24 00:35 Ur Leukocyte Esterase Negative (Negative) 05/26/24 00:35 All radiology interpretation(s) finalized by discharge Discharge Plan Discharge Patient Disposition: Home Clinical Impression: Generalized weakness Constipation Qualifiers: Constipation type: unspecified constipation type Qualified Code(s): K59.00 - Constipation, unspecified Condition: Stable Prescriptions: No Action amlodipine 2.5 mg tablet 2.5 mg PO DAILY cefdinir 300 mg capsule 300 mg PO BID 5 Days Qty: 10 0RF magnesium hydroxide [Milk of Magnesia] 400 mg/5 mL Suspension 30 ml PO QPM bismuth subsalicylate [Pepto-Bismol] 262 mg/15 mL Suspension 262 mg PO DAILY PRN (Reason: Diarrhea) Fleet Enema 19-7 gram/118 mL Enema 118 ml VT DAILY PRN (Reason: Constipation) Ex-Lax Maximum Strength 25 mg Tablet 25 mg PO DAILY PRN (Reason: Constipation) brimonidine [Alphagan P] 0.1 % drops 1 drp ophthalmic (eye) BID Discharge Orders: Discharge ED (Routine); Ordered 05/26/24 Ordered By: Otis Ramirez Referrals: Jackson Yi MD [Primary Care Provider] - 1 week Patient Instructions: Constipation - Adult, Weakness (Generalized) Activity Restrictions/Additional Instructions: Thank you for choosing [facility] for your healthcare needs today. Please realize that you were seen in the emergency department and that we are providing you with an emergency medical screening exam and this may not be a complete and all exclusive of all testing and/or medical workup we may need to determine your element or severity of your illness. It is very important that you follow-up as instructed with your primary care provider or specialist for the additional evaluation and to discuss your medical treatment plan. You may return to the emergency department should you have concerns or if your condition changes or worsens in any way. 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 [employer] Enriquez
--- NOTE | 2024-05-25 23:54 | ECG_ITS ---
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 Measurements Intervals [place] Rate: 63 P: 51 FL: 224 QRS: -9 QRSD: 133 T: 5 QT: 399 QTc: 409 Interpretive Statements SINUS RHYTHM WITH SINUS ARRHYTHMIA WITH FIRST DEGREE AV BLOCK LEFT BUNDLE BRANCH BLOCK [120+ ms QRS DURATION, 80+ ms Q/S IN V1/V2, 85+ ms R IN I/aVL/V5/V6] Compared to ECG 01/07/2024 08:45:28 No significant changes Electronically Signed On 05-26-2024 9:18:18 CDT by Gustabo Orta M.D. [id number]
[2024-05-25 23:58] LABS: Basophils # 0.1 10^3/uL (0.0-0.1); Basophils % 1.2 %; Eosinophils # 0.2 10^3/uL (0.0-0.8); Eosinophils % 2.6 %; Hematocrit 45.7 % (36-47); Lymphocytes # 3.7 10^3/uL (0.8-4.8); Lymphocytes % 40.7 %; Mean Corpuscular HGB Conc 33.3 g/dL (30-55); Mean Corpuscular Hemoglobin 31.3 pg (27-33); Mean Corpuscular Volume 94.2 fl (85-98); Mean Platelet Volume 10.5 fL (7.4-10.4); Monocytes # 1.1 10^3/uL (0.2-0.9); Monocytes % 11.7 %; Neutrophils # 3.94 10^3/uL (1.8-7.7); Neutrophils % 43.7 %; Nucleated Red Blood Cells % 0 %; Platelet Count 261 10^3/cmm (157-399); Red Blood Count 4.85 10^6/uL (3.85-5.65); Red Cell Distribution Width 13.8 % (12.1-15.1); White Blood Count 9.01 10^3/uL (3.29-11.43)
[2024-05-26] MEDS: sodium chloride 0.9% 500 ML 999 ML IV (00:40)
--- NOTE | 2024-05-26 00:47 | PC.NURSE ---
Elton gave this nurse verbal orders to insert Gar catheter for urinary retention.
[2024-05-26 01:02] LABS: Troponin(5th) Baseline 20 ng/L (0-10)
[2024-05-26 01:03] LABS: Add Urine Microscopic? NO; Alanine Aminotransferase 32 U/L (0-33); Albumin Level 4.4 g/dL (3.5-5.2); Alkaline Phosphatase 82 U/L (35-105); Anion Gap 16.5 (5-19); Aspartate Amino Transferase 34 U/L (0-32); Blood Urea Nitrogen 24 mg/dL (8-23); Calcium 9.8 mg/dL (8.5-10.5); Carbon Dioxide 27 mmol/L (22-29); Charge for UA Resulting for Rev; Chloride 100 mmol/L (98-107); Creatinine Clr Calc Pharmacy 49.1063; Globulin 3.6 g/dL (1.3-4.6); Glucose 89 mg/dL (65-115); Lipase 19 U/L (13-60); Osmolality Calculated 294 mOsm/kg (285-295); Potassium 3.5 mmol/L (3.5-5.1); Sodium 140 mmol/L (136-145); Total Bilirubin 0.3 mg/dL (0.15-1.2)
[2024-05-26 01:06] LABS: Bilirubin Urine Neg (Negative); Blood Urine Neg (Negative); Glucose Urine UA Norm (Normal); Ketones Urine Negative (Negative); Leukocyte Esterase Urine Negative (Negative); Nitrate Urine Negative (Negative); Protein Urine Neg (Negative); Specific Gravity, Urine 1.015 (1.005-1.030); Urine Appearance Clear (CLEAR); Urine Color Yellow (Yellow); Urobilinogen Urine Neg (Negative); pH Urine 8 (5-7)
[2024-05-26 01:30] VITALS: PULSE 67; O2SAT 98
[2024-05-26 02:00] VITALS: PULSE 66; O2SAT 98
[2024-05-26 02:30] VITALS: PULSE 72; O2SAT 98
== END 2024-05-26 03:09 | disposition home or self-care (01) ==
PROVIDERS: Emergency Provider Nurse Practitioner Family; PCP Family Medicine
DX: R53.1 Weakness (principal); K59.00 Constipation, unspecified; E78.5 Hyperlipidemia, unspecified; Z85.3 Personal history of malignant neoplasm of breast; Z86.73 Personal history of transient ischemic attack (TIA), and cerebral infarction without residual deficits; Z92.3 Personal history of irradiation
CPT/HCPCS: 51702; 74176; 80053; 81003; 83690; 84484; 85025; 93005; 99284; J7040

== ENCOUNTER 2024-05-26 07:22 | Emergency (ER) | payer MEDICARE, SELFPAY ==
[2024-05-26 07:23] VITALS: BP 167/75; PULSE 84; RESP 16; O2SAT 100; BMI 21.4
--- NOTE | 2024-05-26 07:25 | XR_ITS ---
WS: [id number] XR chest 1V portable [id number] REASON FOR EXAM: dyspnea/cough FINDINGS: The chest is unchanged compared to 01/07/2024. Mild to moderate tortuosity and ectasia of the thoracic aorta. Normal heart size. Calcified granulomas disease bilaterally. No acute pulmonary parenchymal or pleural abnormality. 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 Moderate degenerative spondylosis in the mid and lower tho racic spine. XR/XR chest 1V portable [id number] IMPRESSION: No acute chest abnormality.
--- NOTE | 2024-05-26 07:30 | ECG_ITS ---
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 Measurements Intervals [place] Rate: 63 P: 60 MN: 223 QRS: 0 QRSD: 123 T: -31 QT: 437 QTc: 448 Interpretive Statements SINUS RHYTHM WITH FIRST DEGREE AV BLOCK WITH OCCASIONAL SUPRAVENTRICULAR PREMATURE COMPLEXES Nonspecific IVCD ANTEROSEPTAL MYOCARDIAL INFARCTION , POSSIBLY ACUTE [40+ ms Q WAVE IN V1-V4] ACUTE TX Compared to ECG 05/26/2024 00:17:37 Myocardial infarct finding now present Sinus arrhythmia no longer present Left bundle-branch block no longer present Electronically Signed On 05-26-2024 9:18:38 CDT by Gustabo Orta M.D. [id number]
[2024-05-26 07:34] VITALS: TEMP 36.5
--- NOTE | 2024-05-26 07:35 | CT_ITS ---
WS: [id number] CT HEAD NONCONTRAST HISTORY: fall TECHNIQUE: Contiguous axial imaging performed through the brain in 3.0 mm imaging. Bone and soft tiss ue windows. Sagittal and coronal reformats reviewed. All CT scans at [facility] use at least one of these dose optimization techniques: automated exposure control; mA and/or kV adjustment per pa tient size (includes targeted exams where dose is matched to clinical indication); or iterative recon struction. DLP: 989.08 mGy.cm COMPARISON: 01/07/2024 No acute intracranial hemorrhage, midline shift or mass effect. Moderate bilateral symmetric atrophy and small vessel ischemic disease with small lacunar infarcts in the external capsules. Moderate cerebellar atrophy. Ventricles: Normal size with no hydrocephalus. Paranasal sinuses: Mild mucoperiosteal thickening involving the anterior RIGHT ethmoid air cells. No air-fluid levels. Mastoid air cells: Well pneumatized. Calvarium and scalp: Skull is intact with no soft tissue edema or swelling. CT/CT head wo con* [id number] IMPRESSION: 1. No acute intracranial hemorrhage or edema. 2. Moderate cerebral and cerebellar atrophy with small vessel ischemic disease and lacunar infarcts. 3. No skull fracture.
--- NOTE | 2024-05-26 07:35 | ED_ITS ---
HPI - Fall 2 General: Chief Complaint: Fall Stated Complaint: WEAKNESS Time Seen by Provider: 05/26/24 07:25 History of Present Illness: 78-year-old female presents emergency ro om with complaint of generalized weakness. She was seen last night with similar complaint CT of the abdomen at that time showed constipation. She has a history of a stage I breast cancer for which she was treated with lumpectomy radiation and 5 years of antiestrogen therapy. She also was diagnosed with gastric lymphoma 2020 according to office notes she was treated with systemic chemotherapy and follow-up has not shown any recurrence. She was discharged last night from the ER with constipation got milk of magnesia she had been sitting at home states she actually felt relatively well she got up she got lightheaded and dizzy vomited once and up slipping on the vomitus and falling she did states she hit her head. She was down for about 5 minutes and is able to get herself up this morning she still feels very weak. She denies any abdominal pain at this time denies any dysuria urgency or frequency no hematemesis or coffee-ground emesis. Associated symptoms-after fall: Denies abdominal pain, chest pain or neck pain Review of Systems 2 Const: Denies: fever(s) or chills Card: Denies: chest pain Resp: Denies: dyspnea GI: Denies: abdominal pain : Denies: dysuria, urinary frequency or urinary urgency Musc: Denies: neck pain or back pain Skin/Breast: Denies: rash PFSH ED 2 PFSH: Medical History GERD (gastroesophageal reflux disease) Bilateral carotid artery stenosis without cerebral infarction Closed head injury Hyperlipidemia 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 disc disorder 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 region Lumbar stenosis without neurogenic claudication 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 (current) use of opiate analgesic Pain management contract signed HX: breast cancer ER [place] negative, 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 status post radiation therapy and hormonal therapy, currently on Femara Stroke (cerebrum) Hx of stroke in February 07, 2019 Spondylolisthesis of cervical region Cervical disc disorder with myelopathy of mid-cervical region Chronic bronchitis Surgical History Status post carotid endarterectomy History of left breast biopsy Port-A-Cath in place 04/16/20 History of cholecystectomy History of hysterectomy / BSO / appendectomy H/O total hip arthroplasty Right Social History Smoking and tobacco/nicotine status: never used tobacco/nicotine Alcohol intake: never Substance/Drug Use: never Lives independently: Yes Household members: spouse Marital status: Current occupational status: retired Physical Exam 2 Const: GENERAL APPEARANCE: cooperative and comfortable O RIENTATION/CONSCIOUSNESS: Yes awake, Yes oriented to person, Yes oriented to place and Yes oriented to time HENMT: COMMON NORMALS: normocephalic, atraumatic and hearing grossly normal bilaterally HEAD & SCALP: normocephalic and atraumatic Resp: COMMON NORMALS: normal respiratory effort, No retractions, No use of accessory muscles and clear to auscultation bilaterally AUSCULTATION: clear to auscultation bilaterally Cardio: COMMON NORMALS: regular rate, regular rhythm and No murmurs present (Cardio) RATE: regular rate RHYTHM: regular rhythm GI: COMMON NORMALS: Soft to palpation and No hepatosplenomegaly present A USCULTATION: Yes normoactive bowel sounds PALPATION: Yes Soft to palpation, No Tenderness to palpation present (GI), No Guarding due to palpation present (GI) and Yes No hepatosplenomegaly present Extremity: COMMON NORMALS: normal to inspection, capillary refill normal, no clubbing, cyanosis or edema, no calf tenderness and no pedal edema Neuro: SENSORIUM/ORIENTATION: Yes oriented to person, Yes oriented to place and Yes oriented to time Skin: COMMON NORMALS: no rashes or lesions noted GENERAL SKIN EXAM: no rashes or lesions noted Course 2 Vital Signs: Vital signs: Vital Signs Temperature 97.7 F 05/26/24 07:34 Pulse Rate 98 05/26/24 10:54 Respiratory Rate 17 05/26/24 10:54 Blood Pressure 152/66 05/26/24 10:54 Pulse Oximetry 99 05/26/24 10:54 Oxygen Delivery Me thod Room Air 05/26/24 07:23 MDM - Fall Medical Decision Making No findings of the incidental finding of cystitis no leukocytosis. Abdominal exam was rather benign CT from previous visit reviewed was not repeated. Patient states she is feeling better will discharge patient home start cefdinir for cystitis. Clear liquid diet continue to use milk of magnesia to relieve constipation. Patient ambulated the halls without difficulty per nursing. Medical Records I reviewed the patient's medical records. Lab Data I reviewed the patient's lab results. 05/26/24 07:46 05/26/24 07:46 Radiology Impressions Chest X-Ray 05/26/24 07:25 IMPRESSION: No acute chest abnormality. Head CT 05/26/24 07:35 IMPRESSION: 1. No acute intracranial hemorrhage or edema. 2. Moderate cerebral and cerebellar atrophy with small vessel ischemic disease and lacunar infarcts. 3. No skull fracture. Laboratory Results WBC 9.23 10^3/uL (3.29-11.43) 05/26/24 07:46 RBC 4.59 10^6/uL (3.85-5.65) 05/26/24 07:46 Hgb 14.60 g/dL (11.27-16.99) 05/26/24 07:46 Hct 44.3 % (36-47) 05/26/24 07:46 MCV 96.5 fl (85-98) 05/26/24 07:46 MCH 31.8 pg (27-33) 05/26/24 07:46 MCHC 33.0 g/dL (30-55) 05/26/24 07:46 RDW 13.9 % (12.1-15.1) 05/26/24 07:46 Plt Count 235 10^3/cmm (157-399) 05/26/24 07:46 MPV 9.5 fL (7.4-10.4) 05/26/24 07:46 Neut % (Auto) 69.6 % 05/26/24 07:46 Lymph % (Auto) 19.0 % 05/26/24 07:46 [place] % (Auto) 9.4 % 05/26/24 07:46 Eos % (Auto) 1.0 % 05/26/24 07:46 Baso % (Auto) 0.8 % 05/26/24 07:46 Neut # (Auto) 6.43 10^3/uL (1.8-7.7) 05/26/24 07:46 Lymph # (Auto) 1.8 10^3/uL (0.8-4.8) 05/26/24 07:46 [place] # (Auto) 0.9 10^3/uL (0.2-0.9) 05/26/24 07:46 Eos # (Auto) 0.1 10^3/uL (0.0-0.8) 05/26/24 07:46 Baso # (Auto) 0.1 10^3/uL (0.0-0.1) 05/26/24 07:46 Nucleated RBC % (auto) 0 % 05/26/24 07:46 Nucleated RBCs # 0.0 /100WBC 05/26/24 07:46 Sodium 140 mmol/L (136-145) 05/26/24 07:46 Potassium 4.0 mmol/L (3.5-5.1) 05/26/24 07:46 Chloride 102 mmol/L (98-107) 05/26/24 07:46 Carbon Dioxide 27 mmol/L (22-29) 05/26/24 07:46 Anion Gap 15.0 (5-19) 05/26/24 07:46 BUN 23 mg/dL (8-23) 05/26/24 07:46 Creatinine 0.7 mg/dL (0.5-0.9) 05/26/24 07:46 GFR Calculation Not Reportable 05/26/24 07:46 Glucose 141 mg/dL (65-115) H 05/26/24 07:46 Calculated Osmolality 296 mOsm/kg (285-295) H 05/26/24 07:46 Calcium 9.6 mg/dL (8.5-10.5) 05/26/24 07:46 Total Bilirubin 0.4 mg/dL (0.15-1.2) 05/26/24 07:46 AST 38 U/L (0-32) H 05/26/24 07:46 ALT 31 U/L (0-33) 05/26/24 07:46 Alkaline Phosphatase 78 U/L (35-105) 05/26/24 07:46 Creatine Kinase 90 U/L (26-192) 05/26/24 07:46 Total Protein 7.7 g/dL (6.6-8.7) 05/26/24 07:46 Albumin 4.2 g/dL (3.5-5.2) 05/26/24 07:46 Globulin 3.5 g/dL (1.3-4.6) 05/26/24 07:46 Urine Color Yellow (Yellow) 05/26/24 08:58 Urine Appearance Clear (CLEAR) 05/26/24 08:58 Urine pH 8 (5-7) H 05/26/24 08:58 Ur Specific [place] 1.015 (1.005-1.030) 05/26/24 08:58 Urine Protein Trace (Negative) 05/26/24 08:58 Urine Glucose (UA) Norm (Normal) 05/26/24 08:58 Urine Ketones Negative (Negative) 05/26/24 08:58 Urine Blood Trace (Negative) H 05/26/24 08:58 Urine Nitrate Negative (Negative) 05/26/24 08:58 Urine Bilirubin Neg (Negative) 05/26/24 08:58 Urine Urobilinogen Norm mg/dL (Negative) 05/26/24 08:58 Ur Leukocyte Esterase Negative (Negative) 05/26/24 08:58 Urine RBC 5-10 /hpf (0-2) H 05/26/24 08:58 Urine WBC 10-15 /hpf (0-5) H 05/26/24 08:58 Ur Squamous Epith Cells 0-4 /hpf (0-5) H 05/26/24 08:58 Amorphous Sediment Not Reportable 05/26/24 08:58 Urine Bacteria Trace /hpf (NONE) 05/26/24 08:58 Urine Mucus 1+ /hpf 05/26/24 08:58 All radiology interpretation(s) finalized by discharge Discharge Plan Discharge Patient Disposition: Home Clinical Impression: Cystitis, Fall Condition: Stable Prescriptions: New cefdinir 300 mg capsule 300 mg PO BID 5 Days Qty: 10 0RF No Action amlodipine 2.5 mg tablet 2.5 mg PO DAILY magnesium hydroxide [Milk of Magnesia] 400 mg/5 mL Suspension 30 ml PO QPM bismuth subsalicylate [Pepto-Bismol] 262 mg/15 mL Suspension 262 mg PO DAILY PRN (Reason: Diarrhea) Fleet Enema 19-7 gram/118 mL Enema 118 ml [place] DAILY PRN (Reason: Constipation) Ex-Lax Maximum Strength 25 mg Tablet 25 mg PO DAILY PRN (Reason: Constipation) brimonidine [Alphagan P] 0.1 % drops 1 drp ophthalmic (eye) BID Discharge Orders: Discharge ED (Routine); Ordered 05/26/24 Ordered By: Parmjit Ovalle Referrals: Jackson Yi MD [Primary Care Provider] - Discharge Diet: Usual diet Discharge Activity: Resume usual activity Patient Instructions: Opioid Safety, Pain Management Activity Restrictions/Additional Instructions: Thank you for choosing [facility] for your healthcare needs today. It is very important that you follow up as instructed or that you return to the Emergency Department should you have concerns or if your condition changes or worsens in any way. You are seen today after a fall. Your laboratory test did not show significant abnormality except for a mild bladder infection on the urine. CT from last night reviewed. Recommend starting a cefdinir 300 twice a day for the bladder infection. You can continue to use [id number] medications for relief of your constipation. Coding Level of Care Code ED Transition Social Worker for Hardy Enriquez
[2024-05-26 07:52] LABS: Basophils # 0.1 10^3/uL (0.0-0.1); Basophils % 0.8 %; Eosinophils # 0.1 10^3/uL (0.0-0.8); Hematocrit 44.3 % (36-47); Lymphocytes # 1.8 10^3/uL (0.8-4.8); Mean Corpuscular Hemoglobin 31.8 pg (27-33); Mean Corpuscular Volume 96.5 fl (85-98); Mean Platelet Volume 9.5 fL (7.4-10.4); Monocytes # 0.9 10^3/uL (0.2-0.9); Monocytes % 9.4 %; Neutrophils # 6.43 10^3/uL (1.8-7.7); Neutrophils % 69.6 %; Nucleated Red Blood Cells % 0 %; Platelet Count 235 10^3/cmm (157-399); Red Blood Count 4.59 10^6/uL (3.85-5.65); Red Cell Distribution Width 13.9 % (12.1-15.1); White Blood Count 9.23 10^3/uL (3.29-11.43)
[2024-05-26 08:07] LABS: Alanine Aminotransferase 31 U/L (0-33); Albumin Level 4.2 g/dL (3.5-5.2); Alkaline Phosphatase 78 U/L (35-105); Aspartate Amino Transferase 38 U/L (0-32); Blood Urea Nitrogen 23 mg/dL (8-23); Calcium 9.6 mg/dL (8.5-10.5); Carbon Dioxide 27 mmol/L (22-29); Chloride 102 mmol/L (98-107); Creatine Phosphokinase 90 U/L (26-192); Creatinine Clr Calc Pharmacy 45.4113; Globulin 3.5 g/dL (1.3-4.6); Glucose 141 mg/dL (65-115); Osmolality Calculated 296 mOsm/kg (285-295); Sodium 140 mmol/L (136-145); Total Bilirubin 0.4 mg/dL (0.15-1.2); Total Protein 7.7 g/dL (6.6-8.7)
[2024-05-26] MEDS: sodium chloride 0.9% 500 ML 999 ML IV (08:50)
[2024-05-26 09:26] LABS: Add Urine Microscopic? YES; Bilirubin Urine Neg (Negative); Blood Urine Trace (Negative); Glucose Urine UA Norm (Normal); Ketones Urine Negative (Negative); Leukocyte Esterase Urine Negative (Negative); Nitrate Urine Negative (Negative); Protein Urine Trace (Negative); Specific Gravity, Urine 1.015 (1.005-1.030); Urine Appearance Clear (CLEAR); Urine Color Yellow (Yellow); Urobilinogen Urine Norm (Negative); pH Urine 8 (5-7)
[2024-05-26 09:33] LABS: Squamous Epithelial Cell Urine 0-4 /hpf (0-5)
[2024-05-26 09:34] LABS: Bacteria Urine TRACE /hpf; Mucus Urine 1+ /hpf
[2024-05-26 10:32] VITALS: BP 152/66; PULSE 98; RESP 17; O2SAT 99
[2024-05-26 10:54] VITALS: BP 152/66; PULSE 98; RESP 17; O2SAT 99
== END 2024-05-26 10:55 | disposition home or self-care (01) ==
PROVIDERS: Emergency Provider Family Medicine; PCP Family Medicine
DX: N30.90 Cystitis, unspecified without hematuria (principal); E78.5 Hyperlipidemia, unspecified; Z85.3 Personal history of malignant neoplasm of breast; Z86.73 Personal history of transient ischemic attack (TIA), and cerebral infarction without residual deficits
CPT/HCPCS: 70450; 71045; 80053; 81001; 82550; 85025; 93005; 96360; 96361; 99285; J7040

== ENCOUNTER 2024-05-30 08:44 | Emergency (ER) | payer MEDICARE, SELFPAY ==
[2024-05-30 08:44] VITALS: BP 132/61; PULSE 75; RESP 26; TEMP 36.7; O2SAT 100; BMI 31.1
--- NOTE | 2024-05-30 09:04 | ED_ITS ---
HPI - Abdominal Pain 2 General: Chief Complaint: Nausea/Vomiting/Diarrhea Stated Complaint: Diarrhea x 1 Week Time Seen by Provider: 05/30/24 08:56 Source: patient Mode of arrival: EMS Limitations: no limitations History of Present Illness: Patient is an 78-year-old female presents to ED today with complaint of abdominal pain and dizziness. Patient was seen here in our facility on 05/25 secondary to abdominal pain, diarrhea. She had had some constipation and took constipation relief medications which then resulted in diarrhea. CT scan at that visit continued to show constipation. Remainder of workup is essentially benign. She returned the day after for continued symptoms as well as a fall. She was diagnosed with acute cystitis on that visit and placed on cefdinir. She has not had any further falls since her last visit 4 days ago. She states she called an ambulance today secondary to abdominal pain and feeling dizzy while on the toilet this morning. She states she did have a bowel movement this morning that was loose. She complains of pain in her abdomen and often rubs her right lower quadrant. She arrives with stable vital signs. She has not been running fevers. She has not had any vomiting over the past few days. PMH significant for breast cancer as well as gastric lymphoma. MD elicited complaint: abdominal pain Pertinent past history: constipation Onset (ago): day(s) Pain Consistency: constant Severity: moderate Quality: cramping Radiation: none Migration to: no migration Exacerbating factors: nothing Relieving factors: nothing Associated Symptoms: Denies chills, dysuria, fever(s), nausea, syncope and vomiting Related Data: Patient : No Review of Systems 2 Const: Denies: fever(s), chills, body aches, fatigue or malaise Eyes: Denies: change in vision, blurry vision, photophobia, floaters or seeing flashes Card: Denies: chest pain, palpitations, syncope or pre-syncope Resp: Denies: dyspnea GI: Reports: abdominal pain; Denies: nausea or vomiting : Denies: flank pain, difficulty voiding, dysuria, urinary frequency, urinary urgency or urinary hesitancy Musc: Denies: neck pain, back pain, extremity pain or joint pain Skin/Breast: Denies: rash Neuro: Reports: dizziness; Denies: headache(s), numbness in extremities, weakness in extremities, sensory changes, lack of coordination, frequent falls, behavioral changes, Slurred speech present or seizure-like activity PFSH ED 2 PFSH: Medical History GERD (gastroesophageal reflux disease) Bilateral carotid artery stenosis without cerebral infarction Closed head injury Hyperlipidemia 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 disc disorder 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 region Lumbar stenosis without neurogenic claudication Stenosis of cervical spine with 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 Pain management contract signed HX: breast cancer ER CT negative, 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 status post radiation therapy and hormonal therapy, currently on Femara Stroke (cerebrum) Hx of stroke in February 07, 2019 Spondylolisthesis of cervical region Cervical disc disorder with myelopathy of mid-cervical region Chronic bronchitis Surgical History Status post carotid endarterectomy History of left breast biopsy Port-A-Cath in place 04/16/20 History of cholecystectomy History of hysterectomy / BSO / appendectomy H/O total hip arthroplasty Right Social History Smoking and tobacco/nicotine status: never used tobacco/nicotine Alcohol intake: never Substance/Drug Use: never Lives independently: Yes Household members: spouse Marital status: Current occupational status: retired Physical Exam 2 Const: COMMON NORMALS: no acute distress, average body habitus, patient oriented x3, no limitations, healthy appearing, alert and well nourished G ENERAL APPEARANCE: cooperative HENMT: COMMON NORMALS: normocephalic and atraumatic HEAD & SCALP: n ormocephalic and atraumatic Eye: COMMON NORMALS: no scleral icterus Neck/C-Spine: COMMON NORMALS: full ROM, no lymphadenopathy, supple and no meningeal signs Chest: COMMONS NORMALS: normal inspection of the chest Resp: COMMON NORMALS: normal respiratory effort and clear to auscultation bilaterally AUSCULTATION: clear to auscultation bilaterally Cardio: COMMON NORMALS: regular rate and regular rhythm RATE: regular rate RHYTHM: regular rhythm GI: COMMON NORMALS: Normal to inspection, nondistended, normoactive bowel sounds present, Soft to palpation, No hepatosplenomegaly present and no masses INSPECTION: Yes normal to inspection AUSCULTATION: Yes normoactive bowel sounds PALPATION: Yes Soft to palpation, Yes Tenderness to palpation present (GI), No Guarding due to palpation present (GI), No Rigid due to palpation and Yes No hepatosplenomegaly present : COMMON NORMALS: Yes no CVA tenderness BLADDER/KIDNEY EXAM: Yes no CVA tenderness Back/Pelvis: COMMON NORMALS: no CVA tenderness and thoracic and lumbar spine normal to inspection Extremity: COMMON NORMALS: normal to inspection GENERAL: Yes normal exam except as noted Neuro: VISHAL COMA SCALE: document GCS findings Vishal coma scale eye opening: Spontaneous Vishal coma scale verbal response: Orientated Vishal coma scale motor response: Obey commands [place] coma scale total score: 15 COMMON NORMALS: patient oriented x3, moves all extremities, no focal motor deficits and no sensory deficits noted SENSORIUM/ORIENTATION: Yes alert MENINGEAL SIGNS: Yes no meningeal signs CRANIAL NERVES: Yes CN normal except as noted COORDINATION/BALANCE: [id number] test normal SPEECH: speech normal G AIT: Yes Unable to assess gait MOTOR EXAM: 5/5 motor strength present throughout COORDINATION: [id number] test normal Skin: COMMON NORMALS: no rashes or lesions noted GENERAL SKIN EXAM: no rashes or lesions noted Course 2 Vital Signs: Vital signs: Vital Signs Temperature 98.0 F 05/30/24 08:44 Pulse Rate 75 05/30/24 08:44 Respiratory Rate 26 H 05/30/24 08:44 Blood Pressure 132/61 05/30/24 08:44 Pulse Oximetry 100 05/30/24 08:44 Oxygen Delivery Me thod Room Air 05/30/24 08:44 MDM - Abdominal Pain Medical Decision Making Patient's vital signs are normal. Her blood work is completely unremarkable. UA that she was diagnosed with on last visit seems to be improving. CT scan showing continued constipation as well as sigmoid diverticulosis. No evidence for diverticulitis. She has no pain to her left abdomen. Patient feeling improved. She was up and ambulatory in her room without difficulty or assistance. She states she feels well enough to go home at this time. Recommend continuing stool softener such as Colace and MiraLAX to help with her constipation. Recommend she follow-up with her primary care provider. Return ED precautions given. Medical Records I reviewed the patient's medical records. Lab Data I reviewed the patient's lab results. 05/30/24 09:13 05/30/24 09:13 Labs/Radiology: Radiology Impressions Abdomen/Pelvis CT 05/30/24 09:04 IMPRESSION: 1. Sigmoid diverticulosis. No definite evidence of acute diverticulitis although some images degraded in the pelvis due to beam hardening artifact. Recommend correlation with clinical symptoms 2. RIGHT colon constipation similar to previous. 3. Prior cholecystectomy. 4. Small esophageal hiatal hernia. 5. No other significant changes. Laboratory Results WBC 8.56 10^3/uL (3.29-11.43) 05/30/24 09:13 RBC 4.20 10^6/uL (3.85-5.65) 05/30/24 09:13 Hgb 13.20 g/dL (11.27-16.99) 05/30/24 09:13 Hct 39.1 % (36-47) 05/30/24 09:13 MCV 93.1 fl (85-98) 05/30/24 09:13 MCH 31.4 pg (27-33) 05/30/24 09:13 MCHC 33.8 g/dL (30-55) 05/30/24 09:13 RDW 13.7 % (12.1-15.1) 05/30/24 09:13 Plt Count 253 10^3/cmm (157-399) 05/30/24 09:13 MPV 9.4 fL (7.4-10.4) 05/30/24 09:13 Neut % (Auto) 59.8 % 05/30/24 09:13 Lymph % (Auto) 27.8 % 05/30/24 09:13 [place] % (Auto) 10.0 % 05/30/24 09:13 Eos % (Auto) 1.5 % 05/30/24 09:13 Baso % (Auto) 0.8 % 05/30/24 09:13 Neut # (Auto) 5.11 10^3/uL (1.8-7.7) 05/30/24 09:13 Lymph # (Auto) 2.4 10^3/uL (0.8-4.8) 05/30/24 09:13 [place] # (Auto) 0.9 10^3/uL (0.2-0.9) 05/30/24 09:13 Eos # (Auto) 0.1 10^3/uL (0.0-0.8) 05/30/24 09:13 Baso # (Auto) 0.1 10^3/uL (0.0-0.1) 05/30/24 09:13 Nucleated RBC % (auto) 0 % 05/30/24 09:13 Nucleated RBCs # 0.0 /100WBC 05/30/24 09:13 Sodium 139 mmol/L (136-145) 05/30/24 09:13 Potassium 3.6 mmol/L (3.5-5.1) 05/30/24 09:13 Chloride 103 mmol/L (98-107) 05/30/24 09:13 Carbon Dioxide 23 mmol/L (22-29) 05/30/24 09:13 Anion Gap 16.6 (5-19) 05/30/24 09:13 BUN 19 mg/dL (8-23) 05/30/24 09:13 Creatinine 0.6 mg/dL (0.5-0.9) 05/30/24 09:13 GFR Calculation Not Reportable 05/30/24 09:13 Glucose 100 mg/dL (65-115) 05/30/24 09:13 Calculated Osmolality 290 mOsm/kg (285-295) 05/30/24 09:13 Calcium 9.3 mg/dL (8.5-10.5) 05/30/24 09:13 Total Bilirubin 0.5 mg/dL (0.15-1.2) 05/30/24 09:13 AST 21 U/L (0-32) 05/30/24 09:13 ALT 16 U/L (0-33) 05/30/24 09:13 Alkaline Phosphatase 77 U/L (35-105) 05/30/24 09:13 Total Protein 7.0 g/dL (6.6-8.7) 05/30/24 09:13 Albumin 3.8 g/dL (3.5-5.2) 05/30/24 09:13 Globulin 3.2 g/dL (1.3-4.6) 05/30/24 09:13 Lipase 19 U/L (13-60) 05/30/24 09:13 Urine Color Yellow (Yellow) 05/30/24 10:28 Urine Appearance Clear (CLEAR) 05/30/24 10:28 Urine pH 7.5 (5-7) 05/30/24 10:28 Urine Protein Negative (Negative) 05/30/24 10:28 Urine Glucose (UA) Negative (Normal) 05/30/24 10:28 Urine Ketones Negative (Negative) 05/30/24 10:28 Urine Nitrate Negative (Negative) 05/30/24 10:28 Urine Bilirubin Negative (Negative) 05/30/24 10:28 Urine Urobilinogen 0.2 mg/dL (Negative) 05/30/24 10:28 Ur Leukocyte Esterase Negative (Negative) 05/30/24 10:28 Amorphous Sediment Not Reportable 05/30/24 10:28 All radiology interpretation(s) finalized by discharge Discharge Plan Discharge Patient Disposition: Home Clinical Impression: Constipation Condition: Stable Prescriptions: No Action amlodipine 2.5 mg tablet 2.5 mg PO DAILY magnesium hydroxide [Milk of Magnesia] 400 mg/5 mL Suspension 30 ml PO QPM PRN (Reason: Constipation) bismuth subsalicylate [Pepto-Bismol] 262 mg/15 mL Suspension 262 mg PO DAILY PRN (Reason: Diarrhea) Fleet Enema 19-7 gram/118 mL Enema [address] DAILY PRN (Reason: Constipation) Ex-Lax Maximum Strength 25 mg Tablet 25 mg PO DAILY PRN (Reason: Constipation) brimonidine [Alphagan P] 0.1 % drops 1 drp ophthalmic (eye) BID Discharge Orders: Discharge ED (Routine); Ordered 05/30/24 Ordered By: Corrine Mcnulty Referrals: Jackson Yi MD [Primary Care Provider] - Patient Instructions: Constipation (DC) Coding Level of Care Code ED Home Security Alarm Installer for Chg Zoe
--- NOTE | 2024-05-30 09:04 | CT_ITS ---
WS: [id number] CT ABDOMEN PELVIS TECHNIQUE: Contrast-enhanced CT of the abdomen and pelvis with coronal and sagittal reformatted image s. CLINICAL INFORMATION: abdominal pain COMPARISON: CT 05/26/2024 DLP: 450.[address] scans at [facility] use at least one of these dose optimization techniques: automated e xposure control; mA and/or kV adjustment per patient size (includes targeted exams where dose is matc hed to clinical indication); or iterative reconstruction. FINDINGS: Bilateral THAs degrade images in the pelvis. Cholecystectomy clips. Normal portal vein and splenic ve in. No hepatic lesions. Tiny cyst or hemangioma in the spleen. Small esophageal canal hernia. Fatty a trophy of the pancreas. Subpleural nodularity in the lung bases. Adrenal glands are normal. Normal re nal parenchymal enhancement. No hydronephrosis. Sigmoid diverticulosis. Sigmoid is incompletely visua lized in some areas due to beam hardening artifact in the pelvis. No definite evidence of acute diver ticulitis. RIGHT colon constipation. Urine distended bladder. CT/CT abdomen pelvis w con* [id number] IMPRESSION: 1. Sigmoid diverticulosis. No definite evidence of acute diverticulitis althou gh some images degraded in the pelvis due to beam hardening artifact. Recommend correlation with clinical symptoms 2. RIGHT colon constipation similar to previous. 3. Prior cholecystectomy. 4. Small esophageal hiatal hernia. 5. No other significant changes.
[2024-05-30 09:23] LABS: Basophils # 0.1 10^3/uL (0.0-0.1); Basophils % 0.8 %; Eosinophils # 0.1 10^3/uL (0.0-0.8); Eosinophils % 1.5 %; Hematocrit 39.1 % (36-47); Lymphocytes # 2.4 10^3/uL (0.8-4.8); Lymphocytes % 27.8 %; Mean Corpuscular HGB Conc 33.8 g/dL (30-55); Mean Corpuscular Hemoglobin 31.4 pg (27-33); Mean Corpuscular Volume 93.1 fl (85-98); Mean Platelet Volume 9.4 fL (7.4-10.4); Monocytes # 0.9 10^3/uL (0.2-0.9); Neutrophils # 5.11 10^3/uL (1.8-7.7); Neutrophils % 59.8 %; Nucleated Red Blood Cells % 0 %; Platelet Count 253 10^3/cmm (157-399); Red Cell Distribution Width 13.7 % (12.1-15.1); White Blood Count 8.56 10^3/uL (3.29-11.43)
[2024-05-30 09:44] LABS: Alanine Aminotransferase 16 U/L (0-33); Albumin Level 3.8 g/dL (3.5-5.2); Alkaline Phosphatase 77 U/L (35-105); Anion Gap 16.6 (5-19); Aspartate Amino Transferase 21 U/L (0-32); Blood Urea Nitrogen 19 mg/dL (8-23); Calcium 9.3 mg/dL (8.5-10.5); Carbon Dioxide 23 mmol/L (22-29); Chloride 103 mmol/L (98-107); Creatinine Clr Calc Pharmacy 53.9258; Globulin 3.2 g/dL (1.3-4.6); Glucose 100 mg/dL (65-115); Lipase 19 U/L (13-60); Osmolality Calculated 290 mOsm/kg (285-295); Potassium 3.6 mmol/L (3.5-5.1); Sodium 139 mmol/L (136-145); Total Bilirubin 0.5 mg/dL (0.15-1.2)
[2024-05-30] MEDS: iohexol 350 mg/mL 500 mL Btl (per mL) IV (10:03)
[2024-05-30] MEDS: sodium chloride 0.9% 1,000 ML 999 ML IV (10:16)
--- NOTE | 2024-05-30 10:30 | PC.PHAR ---
PT IS ABLE TO VERIFY WHAT SHE TAKES BUT DOES NOT SEEM TO REMEMBER WHEN SHE LAST TOOK IT.
[2024-05-30 10:39] LABS: Charge for UA Resulting for Rev
[2024-05-30 11:13] LABS: Bilirubin Urine Negative (Negative); Glucose Urine UA Negative (Normal); Ketones Urine Negative (Negative); Leukocyte Esterase Urine Negative (Negative); Nitrate Urine Negative (Negative); Protein Urine Negative (Negative); Urine Appearance Clear (CLEAR); Urine Color Yellow (Yellow); Urobilinogen Urine 0.2 mg/dL (Negative); pH Urine 7.5 (5-7)
[2024-05-30 11:36] LABS: Blood Urine Neg (Negative)
[2024-05-30 11:37] LABS: Specific Gravity, Urine 1.027 (1.005-1.030)
[2024-05-30 11:59] VITALS: BP 132/61; PULSE 75; RESP 26; TEMP 36.7; O2SAT 100
== END 2024-05-30 12:01 | disposition home or self-care (01) ==
PROVIDERS: Emergency Provider Physician Assistant; PCP Family Medicine
DX: K59.00 Constipation, unspecified (principal); E78.5 Hyperlipidemia, unspecified; Z85.3 Personal history of malignant neoplasm of breast; Z92.3 Personal history of irradiation; Z86.73 Personal history of transient ischemic attack (TIA), and cerebral infarction without residual deficits
CPT/HCPCS: 36415; 74177; 80053; 81003; 81015; 83690; 85025; 99285; J7030; Q9967

== ENCOUNTER 2024-09-11 10:00 | Oncology outpatient (recurring) (ONCR) | payer MEDICARE, SELFPAY ==
--- NOTE | 2024-09-01 12:00 | CTR_ITS ---
PROCEDURE INFORMATION: Exam: CT Chest With Contrast; Diagnostic Exam date and time: 09/01/2024 12:34 PM Age: 79 years old Clinical indication: Condition or disease; Other: HX of breast cancer; Prior surgery; Surgery date: 6+ months; Surgery type: Gb, scar hip; Additional info: Surveillance TECHNIQUE: Imaging protocol: Diagnostic computed tomography of the chest with contrast. Radiation optimization: All CT scans at this facility use at least one of these dose optimization techniques: automated exposure control; mA and/or kV adjustment per patient size (includes targeted exams where dose is matched to clinical indication); or iterative reconstruction. Contrast material: [id number]; Contrast volume: 100 ml; Contrast route: INTRAVENOUS (IV); COMPARISON: CT chest abdpel w/*[id number] 08/02/2023 9:21 AM RADIATION DOSE METRICS: Total DLP (mGy-cm): 551.55 FINDINGS: Lungs: Numerous benign granulomas noted. There are scattered benign centrilobular nodules some in a tree-in-bud configuration and unchanged. No infiltrate. Pleural spaces: Unremarkable. No pneumothorax. No pleural effusion. Heart: Calcification of the mitral valve annulus noted. Lymph nodes: Unremarkable. No enlarged lymph nodes. Vasculature: Calcified atherosclerotic plaque noted. Bones/joints: Unremarkable. No acute fracture. No bone lesions. Soft tissues: Surgical changes lateral left breast noted mild subpleural reticulation in the anterior left upper lobe possibly from radiation. PROCEDURE INFORMATION: Exam: CT Abdomen And Pelvis With Contrast Exam date and time: 09/01/2024 12:34 PM Age: 79 years old Clinical indication: Condition or disease; Other: HX of breast cancer; Prior surgery; Surgery date: 6+ months; Surgery type: Gb, scar hip; Additional info: Surveillance TECHNIQUE: Imaging protocol: Computed tomography of the abdomen and pelvis with contrast. Radiation optimization: All CT scans at this facility use at least one of these dose optimization techniques: automated exposure control; mA and/or kV adjustment per patient size (includes targeted exams where dose is matched to clinical indication); or iterative reconstruction. Contrast material: [id number]; Contrast volume: 100 ml; Contrast route: INTRAVENOUS (IV); COMPARISON: CT abdomen pelvis w con* [id number] 05/30/2024 9:56 AM RADIATION DOSE METRICS: Total DLP (mGy-cm): 551.55 FINDINGS: Limitations: Bilateral orthopedic hardware of the hips creates artifact limiting visualization of the pelvis. Liver: Normal. No mass. Gallbladder and biliary ducts: There has been cholecystectomy. Pancreas: Normal. No ductal dilation. Spleen: Normal. No splenomegaly. Adrenal glands: Normal. No mass. Kidneys and ureters: Normal. No hydronephrosis. Stomach and bowel: Moderate diverticulosis is noted. No evidence of diverticulitis. No obstruction. Appendix: No evidence of appendicitis. Intraperitoneal space: Unremarkable. No free air. No significant fluid collection. Vasculature: Calcified atherosclerotic plaque noted. Retrocaval left renal vein as an incidental finding. Lymph nodes: Unremarkable. No enlarged lymph nodes. Urinary bladder: Small cystocele noted. Reproductive: There has been hysterectomy. Bones/joints: Unremarkable. No acute fracture. No bone lesions. Soft tissues: Unremarkable. CT/CT chest abdpel w/*[id number] IMPRESSION: No acute findings. IMPRESSION: 1. No acute findings. 2. Diverticulosis without evidence diverticulitis. 3. Limited visualization of the pelvis due to artifact from bilateral total hip arthroplasties.
[2024-09-01] MEDS: iohexol 350 mg/mL 500 mL Btl (per mL) PO (12:30)
[2024-09-01] MEDS: iohexol 350 mg/mL 500 mL Btl (per mL) IV (12:30)
[2024-09-01 12:35] LABS: Blood Urea Nitrogen 20 mg/dL (8-23)
[2024-09-11 10:28] LABS: Basophils # 0.1 10^3/uL (0.0-0.1); Basophils % 1.2 %; Eosinophils # 0.1 10^3/uL (0.0-0.8); Eosinophils % 1.7 %; Hematocrit 42.9 % (36-47); Lymphocytes # 2.3 10^3/uL (0.8-4.8); Mean Corpuscular HGB Conc 32.4 g/dL (30-55); Mean Corpuscular Hemoglobin 31.3 pg (27-33); Mean Corpuscular Volume 96.6 fl (85-98); Mean Platelet Volume 9.2 fL (7.4-10.4); Monocytes # 0.7 10^3/uL (0.2-0.9); Monocytes % 9.7 %; Neutrophils # 3.66 10^3/uL (1.8-7.7); Neutrophils % 53.3 %; Nucleated Red Blood Cells % 0 %; Platelet Count 291 10^3/cmm (157-399); Red Blood Count 4.44 10^6/uL (3.85-5.65); Red Cell Distribution Width 13.2 % (12.1-15.1); White Blood Count 6.88 10^3/uL (3.29-11.43)
[2024-09-11 10:51] LABS: Alanine Aminotransferase 16 U/L (0-33); Alkaline Phosphatase 122 U/L (35-105); Anion Gap 11.5 (5-19); Aspartate Amino Transferase 21 U/L (0-32); Blood Urea Nitrogen 23 mg/dL (8-23); Calcium 9.6 mg/dL (8.5-10.5); Carbon Dioxide 30 mmol/L (22-29); Chloride 100 mmol/L (98-107); Globulin 2.5 g/dL (1.3-4.6); Glucose 97 mg/dL (65-115); Lactate Dehydrogenase 208 U/L (135-214); Osmolality Calculated 288 mOsm/kg (285-295); Potassium 4.5 mmol/L (3.5-5.1); Sodium 137 mmol/L (136-145); Total Bilirubin 0.3 mg/dL (0.15-1.2); Total Protein 6.5 g/dL (6.6-8.7)
== END 2024-09-30 23:59 | disposition home or self-care (01) ==
PROVIDERS: PCP Family Medicine; Visit Provider Nurse Practitioner Family
DX: C85.99 Non-Hodgkin lymphoma, unspecified, extranodal and solid organ sites (principal); Z85.3 Personal history of malignant neoplasm of breast; Z79.899 Other long term (current) drug therapy; Z92.3 Personal history of irradiation; Z53.9 Procedure and treatment not carried out, unspecified reason
CPT/HCPCS: 36415; 71260; 74177; 80053; 82565; 83615; 84520; 85025; 99213

== ENCOUNTER → 2024-10-17 10:46 | Outpatient (BNVA) | payer MEDICARE, SELFPAY | PROVIDERS: PCP Family Medicine; Visit Provider Podiatrist Foot & Ankle Surgery | DX: L84 Corns and callosities; L60.3 Nail dystrophy | CPT/HCPCS: 99203 ==

== ENCOUNTER 2024-10-23 09:44 | Outpatient (CLI) | payer MEDICARE, SELFPAY ==
--- NOTE | 2024-10-23 10:00 | MM_ITS ---
WS: [id number] DIAGNOSTIC BILATERAL DIGITAL BREAST TOMOSYNTHESIS MAMMOGRAPHY WITH CAD HISTORY: history of breast cancer COMPARISON: 10/20/2023, 06/02/2022, 07/01/2020, 02/13/2019 TECHNIQUE: Bilateral craniocaudad, mediolateral oblique, and mediolateral views are submitted with to mosynthjair and ASHA. Computer aided detection utilized. Breast composition: There are scattered areas of fibroglandular density. There has been a very slow change in appearance of the upper outer quadrant of the LEFT breast since 2019. There are a few new areas of asymmetry which may be scar related with the surgery. There are ne w and increasing dystrophic calcifications. One area that is of slightly increased density measuring 9 x 6 mm is along the surgical tract at 12:00. Recommend additional spot compression views at this ti me. Very large dystrophic calcifications in the RIGHT breast. MM/MM diag BI tomosynthesis [id number] IMPRESSION: BI-RADS: 0 - Incomplete: Need additional imaging evaluation. FOLLOW UP: Need Additional Imaging LEFT breast: Spot compression views (CC and MLO). True ML. Ultrasound to follow if abnormality persists.
== END 2024-10-23 09:45 | disposition home or self-care (01) ==
LOC: RAD 09:46
PROVIDERS: PCP Family Medicine; Visit Provider Nurse Practitioner Family
DX: R92.1 Mammographic calcification found on diagnostic imaging of breast (principal); N64.89 Other specified disorders of breast; Z85.3 Personal history of malignant neoplasm of breast
CPT/HCPCS: 77062; G0279

== ENCOUNTER 2025-05-12 17:18 | Emergency (ER) | payer MEDICARE, SELFPAY ==
[2025-05-12 17:22] VITALS: BP 172/78; PULSE 76; RESP 16; TEMP 36.6; O2SAT 99
--- OUTSIDE RECORDS SUMMARY | 2025-05-12 17:22 | XMS_ITS | Encounter Summary ---
Author Organization [facility] Address [address] [place] [address] Care Team Providers Care Mathematician Name Role Phone Unavailable Primary Care Provider Unavailabl e Encounter Details Date Type Department Care Team (Late st Contact Info) Description 10/16/[address] [facility] Pre-Registration [place] CALL TO MAKE APPOINTMENT ONLY [address] [place] [address] Carl Thompson MD [address] [place] [address] Non-Hodgkin lymphoma, unspecified, extranodal and solid organ sites (CMS/HCC); Malignant neoplasm of upper-outer quadrant of left female breast (CMS/HCC); Estrogen receptor positive status (ER+); long-term (current) use of aromatase inhibitors Social History Tobacco Use Types Packs/Day Years Used Date Smoking Tobacco: Never Assessed Comments Unknown Sex and Gender Information Value Date Recorded Sex Assigned at Not on file Legal Sex Female 4:51 PM CDT Gender Identity Not on file Sexual Orientation Not on file documented as of this encounter Plan of Treatment Not on file documented as of this encounter Visit Diagnoses Diagnosis Non-Hodgkin lymphoma, unspecified, extranodal and solid organ sites (CMS/HCC) Malignant neoplasm of upper-outer quadrant of left female breast (CMS/HCC) Malignant neoplasm of upper-outer quadrant of female breast Estrogen receptor positive status (ER+) Estrogen receptor positive status [ER+] 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
--- OUTSIDE RECORDS SUMMARY | 2025-05-12 17:22 | XMS_ITS | Clinical Summary ---
Author Organization [facility] Address [address] [place] [address] Phone Care Team Providers Care Special Librarian Name Role Phone Unavailable Primary Care Provider Unavailabl e Social History Tobacco Use Types Packs/Day Years Used Date Smoking Tobacco: Never Assessed Comments Unknown Sex and Gender Information Value Date Recorded Sex Assigned at Not on file Legal Sex Female 4:51 PM CDT Gender Identity Not on file Sexual Orientation Not on file Plan of Treatment Health Maintenance Due Date Last Done Comments DTAP/TDAP/TD VACCINES (1 - Tdap) 1962 PNEUMOCOCCAL VACCINE 50+ YEARS (1 of 1 - PCV) 07/01/19 93 ZOSTER VACCINE (1 of 2) 1993 OSTEOPOROSIS SCREENING 2008 RSV VACCINE (60+ or ) (1 - 1-dose 75+ series) 2018 INFLUENZA VACCINE (#1) [address] [place] [id number] [facility]
--- OUTSIDE RECORDS SUMMARY | 2025-05-12 17:22 | XMS_ITS | Clinical Summary ---
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
--- OUTSIDE RECORDS SUMMARY | 2025-05-12 17:22 | XMS_ITS | Data Portability ---
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 Patient declines any changes to her medication but was willing to restart blood pressure pills. There is some concerns of the ability of this patient to take care of herself as she likely needs more assistance. The patient has been adamant about not needing additional assistance and that she is capable of taking care of herself. The patient is not exhibiting the best judgment and insight into her own health. [email or web address] Not available 01/01/2025 12:20:57 Plan of Treatment Reminders Order Date Submit Date Provider Last Modified By Organization Details Last Modified Time Details Appointments None recorded. Lab CMP, serum or plasma 2024 025 ZARA [facility], [address], [facility], [place], [address], 12:33:14 CBC 2024 025 [facility], [address] [facility] [address], [address], [place], [address], 12:30:57 lipid panel, blood 2024 025 [facility], [address] [facility] [address], [address], [place], [address], 12:33:17 Referral enrichment assistant referral 2023 024 [facility], [address] [place], [address], 12:00:47 Procedures None recorded. Surgeries None recorded. Imaging None recorded. Medication Orders amlodipine 2.5 mg tablet 2024 025 [facility] 15, [address], [place], [address], 11:09:00 amlodipine 2.5 mg tablet 2023 025 [facility] 15, [address], [place], [address], 10:55:54 amlodipine 2.5 mg tablet 2023 024 [facility], [address], [place], [address], 10:55:45 Patient TargetsNo targets recorded. Patient InstructionsNo instructions recorded. 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 Referring Physician: Ben Yi, Family Medicine, Encounter Date: 10/02/2024 Results Created Date Observation Date Name Description Value Unit Range Abnormal Flag Note LastModifiedBy Organization Detail LastModifiedTime 01/02/2001/01/2025 CBC WBC 8.2 x10 4.0-10 .5 Not Available [facility] [address], [place], [address], 01/01/2025 12:30:57 01/02/2001/01/2025 CBC RBC 4.28 x10 3.50-5 .50 Not Available [facility] [address], [place], [address], 01/01/2025 12:30:57 01/02/20 25 01/01/2025 CBC HGB 13.6 g/dL 12.0-1 6.0 Not Available [facility] [address] [facility], [place], [address], 01/01/2025 12:30:57 01/02/20 25 01/01/2025 CBC HCT 40.2 % 37.0-4 7.0 Not Available [facility] [address] [facility] 1, [place], [address], 01/01/2025 12:30:57 01/02/20 25 01/01/2025 CBC MCV 94.0 fL 80.0-9 9.9 Not Available [facility] [address] [facility] [address], [place], [address], 01/01/2025 12:30:57 01/02/20 25 01/01/2025 CBC MCH 31.7 pg 27.0-3 2.0 Not Available [facility] [address] [facility] [address] [facility], [place], [address], 01/01/2025 12:30:57 01/02/20 25 01/01/2025 CBC MCHC 33.8 g/dL 32.0-3 6.0 Not Available [facility] [address] [facility] [address] [facility], [place], [address], 01/01/2025 12:30:57 01/02/20 25 01/01/2025 CBC RDW 13.9 % 11.5-1 4.5 Not Available [facility] [address] [facility] [address] [facility], [place], [address], 01/01/2025 12:30:57 01/02/20 25 01/01/2025 CBC plt 271.2 x10 140.0- 451.0 Not Available [facility] [address] [facility] [address] [facility], [place], [address], 01/01/2025 12:30:57 01/02/20 25 01/01/2025 CBC lymphocytes % 38.4 % 20.0-5 0.0 Not Available [facility] [address] [facility] [address] [facility], [place], [address], 01/01/2025 12:30:57 01/02/20 25 01/01/2025 CBC granulcytes % 49.9 % 30.0-7 0.0 Not Available [facility] [address] [facility], [place], [address], 01/01/2025 12:30:57 01/02/20 25 01/01/2025 CBC monocytes % 10.3 % 2.0-16 .0 Not Available [facility] [address] [facility] 1, [place], [address], 01/01/2025 12:30:57 01/02/20 25 01/01/2025 CBC granulcytes# 4.1 x10 Not Sherice ilable [facility] [address] [facility] [address] [facility], [place], [address], 01/01/2025 12:30:57 01/02/20 25 01/01/2025 CBC lymphocytes # 3.1 x10 Not Available [facility] [address] [facility] [address] [facility], [place], [address], 01/01/2025 12:30:57 01/02/20 25 01/01/2025 CBC monocytes # 0.8 x10 Not Avai lable [facility] [address] [facility] [address] [facility], [place], [address], 01/01/2025 12:30:57 01/02/20 25 01/01/2025 CMP (FEMA LE) glucose 85.0 mg/dL 60.0-9 9.0 Not Available [facility] [address] [facility] [address], [place], [address], 01/01/2025 12:33:14 01/02/20 25 01/01/2025 CMP (FEMA LE) BUN (blood urea nitrogen) 28.0 mg/dL 10.0-2 6.0 high Not Available [facility] [address] [facility], [place], [address], 01/01/2025 12:33:14 01/02/20 25 01/01/2025 CMP (FEMA LE) creatinine (serum) 0.8 mg/dL 0.4-1. 5 Not Available [facility] [address] [facility], [place], [address], 01/01/2025 12:33:14 01/02/20 25 01/01/2025 CMP (FEMA LE) BUN/creatini ne ratio 35.00 ratio Not Available [facility] [address] [facility], [place], [address], 01/01/2025 12:33:14 01/02/20 25 01/01/2025 CMP (FEMA LE) eGFR calculated 73.2 Not Available [facility] [address] [facility], [place], [address], 01/01/2025 12:33:14 01/02/20 25 01/01/2025 CMP (FEMA LE) total protein 8.1 g/dL 6.0-8. 5 Not Available [facility] [address] [facility], [place], [address], 01/01/2025 12:33:14 01/02/20 25 01/01/2025 CMP (FEMA LE) total bilirubin 0.7 mg/dL 0.2-1. 3 Not Available [facility] [address] [facility], [place], [address], 01/01/2025 12:33:14 01/02/20 25 01/01/2025 CMP (FEMA LE) albumin 4.5 g/dL 3.5-5. 5 Not Available [facility] [address] [facility], [place], [address], 01/01/2025 12:33:14 01/02/20 25 01/01/2025 CMP (FEMA LE) globulin 3.6 calc Not Available [facility] [address] [facility], [place], [address], 01/01/2025 12:33:14 01/02/20 25 01/01/2025 CMP (FEMA LE) AST (SGOT) 30.0 U/L 0.0-46 .0 Not Available [facility] [address] [facility], [place], [address], 01/01/2025 12:33:14 01/02/20 25 01/01/2025 CMP (FEMA LE) altv (SGPT) 18.0 U/L 13.0-6 9.0 normal Not Available [facility] [address] [facility] [address], [place], [address], 01/01/2025 12:33:14 01/02/20 25 01/01/2025 CMP (FEMA LE) A/G ratio 1.3 ratio Not Available [facility] [address] [facility], [place], [address], 01/01/2025 12:33:14 01/02/20 25 01/01/2025 CMP (FEMA LE) ALP phos 89.0 U/L 30.0-1 40.0 normal Not Available [facility] [address] [facility] [address], [place], [address], 01/01/2025 12:33:14 01/02/20 25 01/01/2025 CMP (FEMA LE) calcium 10.6 mg/dL 8.4-10 .5 high Not Available [facility] [address] [facility], [place], [address], 01/01/2025 12:33:14 01/02/20 25 01/01/2025 CMP (FEMA LE) sodium 141.0 mmol/ L 136.0- 145.0 Not Available [facility] [address] [facility], [place], [address], 01/01/2025 12:33:14 01/02/20 25 01/01/2025 CMP (FEMA LE) potassium 4.4 mmol/ L 3.5-5. 1 Not Available [facility] [address] [facility], [place], [address], 01/01/2025 12:33:14 01/02/20 25 01/01/2025 CMP (FEMA LE) chloride 100.0 mmol/ L 98.0-1 10.0 normal Not Available [facility] [address] [facility], [place], [address], 01/01/2025 12:33:14 01/02/20 25 01/01/2025 CMP (FEMA LE) C02 34.0 mmol/ L 22.0-3 1.0 high Not Available [facility] [address] [facility], [place], [address], 01/01/2025 12:33:14 01/02/20 25 01/01/2025 CMP (FEMA LE) anion gap 7.0 calc Not Available [facility] [address] [facility], [place], [address], 01/01/2025 12:33:14 01/02/20 25 01/01/2025 CMP (FEMA LE) osmolality 295.6 calc Not Available [facility] [address] [facility], [place], [address], 01/01/2025 12:33:14 01/02/20 25 01/01/2025 LIPID PROFI LE (FEMA LE) cholesterol 250.0 mg/dL 0.0-20 0.0 high Not Available [facility] [address] [facility], [place], [address], 01/01/2025 12:33:17 01/02/20 25 01/01/2025 LIPID PROFI LE (FEMA LE) trig 245.0 mg/dL 0.0-15 0.0 high Not Available [facility] [address] [facility], [place], [address], 01/01/2025 12:33:17 01/02/20 25 01/01/2025 LIPID PROFI LE (FEMA LE) HDL - direct 40.0 mg/dL >40.0 Not Available [facility] [address] [address], [place], [address], 01/01/2025 12:33:17 01/02/20 25 01/01/2025 LIPID PROFI LE (FEMA LE) VLDL - direct 49.0 mg/dL Not Available [facility] [address] [address], [place], [address], 01/01/2025 12:33:17 01/02/20 25 01/01/2025 LIPID PROFI LE (FEMA LE) LDL - direct 161.0 mg/dL 0.0-13 0.0 high Not Available [facility] [address] [address], [place], [address], 01/01/2025 12:33:17 Result Notes None recorded. Problems Name Problem SNOMED Code Status Onset Date Resolution Date Notes Provider Name and Address Organization Details Recorded Time Gastroes ophageal reflux disease 596776654 Active 2021 GERD (GASTROE SOPHAGEA L REFLUX DISEASE) ; Impressi on: sx controll ed on current medicati ons.; Recorded 07/08/20 10:44AM by Ben Yi MD, Office Visit; Promoted ; acuity set as *; Mere shannon [facility] 5 16:43:55 Cerebrov ascular accident 267822239 Completed 202101/01/2025 STROKE; 06/30/20 3:06PM by Arturo Hernandezic al Summary; Promoted ; acuity set as *; Ben Yi MD [address] [place] [address], [phone], [facility] 5 12:07:52 Chronic bronchio litis 273165234 Active 2021 CHRONIC BRONCHIO LITIS; 06/30/20 3:04PM by Arturo Hernandezic al Summary; Promoted ; acuity set as *; JENNIFER shannon [facility] 5 20:47:29 Bilatera l stenosis of carotid arteries 379642297 Active 2021 BILATERA L CAROTID ARTERY STENOSIS WITHOUT CEREBRAL INFARCTI ON; 06/30/20 3:07PM by Arturo Hernandezic al Summary; Promoted ; acuity set as *; Mere shannon [facility] 5 10:13:12 Hyperlip idemia 70089589 Active 2021 HYPERLIP EMIA; 06/30/20 22 3:06PM by Arturo Hernandezic al Summary; Promoted ; acuity set as *; Mere shannon [facility] 5 16:44:46 Closed injury of head 24428085688 6 Completed 202112/31/2024 CLOSED HEAD INJURY; 06/30/20 22 3:04PM by Arturo Hernandezic al Summary; Promoted ; acuity set as *; Mere shannon [facility] 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, [facility] 12:07:23 [facility] hyperten haider 16565485 Active 2022 Mere shannon [facility] 5 16:43:37 Surgical follow-u p 381258005 Completed 12/31/2024 Mere shannon, [facility] 5 16:45:32 Chronic constipa tion 882957594 Active Mere shannon [facility] 5 16:48:33 Degenera tion of lumbar interver tebral disc 16802351 Active Ben Yi MD [address] [place] [address], [phone], 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, [facility]eline[facility] 5 12:05:56 Hyperten sive disorder 86506454 Completed 12/31/2024 Removal Reason: duplicat e Mere shannon [facility] 16:46:36 History of malignan t neoplasm of breast 871376886 Active Mere shannon [facility] 5 16:44:28 Acute urinary tract infectio n 181659705 Completed 12/31/2024 Mere shannon [facility] 5 16:43:00 Carpal tunnel syndrome 21322790 Completed 01/01/2025 Removal Reason: s/p surgery Ben Yi MD [address] [place] [address], [phone], [facility] 5 12:04:24 History of total hip arthropl asty 77131664026 6 Completed 01/01/2025 Ben Yi MD [address] [place] [address], [phone], [facility] 5 12:06:06 Hammer toe 508102226 Active 2023 Mere shannon [facility] 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 5 12:43:26 Problem Notes None recorded. Procedures Surgical History Date Name Laterality Status Provider Name and Address Organization Details Recorded Time procedure on hip completed DALE MARTINEZ [facility] 01/01/2025 10:57:34 Imaging Results None recorded. Procedure Notes None recorded. Medical Equipment None Reported. Allergies Allergen ID Allergen Name Allergen Category Reaction Reaction Severity Criticality Documentation Date Start Date Code Code System Note Provider Name and Address Organization Details Recorded Time 32148 adhesive bandage-a dhes.patsy vr1 medicatio n Not available Not available Not available 05/29/2023 93401 UNK Comme nt: Recor ded 07/08 9:11A M by There sa Alvarez Offic e Visit ; Promo [place]; Joel massey ce: *; Reaso n: Drug aller gy; ; [facility] Available [facility] 3 02:25:20 79466 Vaccine product containin g only Influenza virus antigen (medicina l product) medicatio n Not available Not available Not available 05/29/2023 81462 43353 105 SNOMED Comme nt: Recor ded 07/08 9:11A M by There sa Alvarez , Offic e Visit ; Jun salvador; Joel massey ce: *; Reaso n: Drug aller gy; ; Ben Yi MD [address] [place] [address], [phone], [facility] 4 12:11:50 Medications Name Sig Start Date Stop Date Status Note LastModified by Organization Details LastModified Time atorvasta tin 40 mg tablet Take 1 tablet every day by oral route at bedtime. 2024 active Not Available Not Available Not Avai lable hydrocodo ne 5 mg-acetam inophen 325 mg tablet TAKE 1 TABLET BY MOUTH EVERY 6 HOURS NEEDED FOR PAIN 06/25 completed Not Available Not Available Not Available promethaz ine 12.5 mg tablet TAKE 1 TABLET BY MOUTH EVERY 6 HOURS NEEDED FOR NAUSEA AND VOMITING - TAKE 3 DOSES DURING THE DAY, LAST DOSE NO MORE THAN 4 HOURS BEFORE BEDTIME 10/05 completed Not Available Not Available Not Available ondansetr on HCl 4 mg tablet TAKE 1 TABLET BY MOUTH EVERY 6 HOURS NEEDED FOR NAUSEA AND VOMITING 03/24 completed Not Available Not Available Not Available amlodipin e 2.5 mg tablet TAKE 1 TABLET BY MOUTH ONCE DAILY active Not Available Not Available No t Available metronida zole 500 mg tablet TAKE 1 TABLET BY MOUTH TWICE DAILY FOR 7 DAYS 03/24 completed Not Available Not Available Not Available ciproflox acin 500 mg tablet TAKE 1 TABLET BY MOUTH TWICE DAILY 03/24 completed Not Available Not Available Not Available triamcino lone acetonide 0.1 % topical cream APPLY A THIN LAYER TO THE AFFECTED AREA(S) BY TOPICAL ROUTE 2 TIMES PER DAY 03/24 completed Not Available Not Available Not Available tamsulosi n 0.4 mg capsule TAKE 1 CAPSULE BY MOUTH ONCE DAILY 10/05 completed Not Available Not Available Not Available cephalexi n 500 mg capsule Take 1 capsule every 6 hours by oral route. 02/02 completed Not Available Not Available Not Available pantopraz ole 40 mg tablet,de layed release TAKE 1 TABLET BY MOUTH TWICE DAILY 03/24 completed Not Available Not Available Not Available bismuth subsalicy late 262 mg/15 mL oral suspensio n Take 262 mg by oral route. 06/26 completed Not Available Not Available Not Available prednison e 50 mg tablet 10/05 completed Not Available Not Available Not Available brimonidi ne 0.2 % eye drops INSTILL 1 DROP INTO EACH EYE TWICE DAILY active Not Available Not Available No t Available sodium phosphate s 19 gram-7 gram/118 mL enema 118 mL by rectal route. 2023 active Not Available Not Available Not Avai lable timolol maleate 0.5 % eye drops two times daily 03/24 completed 0; Recorded 07/08/20 22 9:10AM by Jennifer Alvarez, Office Visit; Not Available Not Available Not Available cefdinir 300 mg capsule TAKE 1 CAPSULE BY MOUTH TWICE DAILY FOR 5 DAYS 06/25 completed Not Available Not Available Not Available ipratropi um bromide 21 mcg (0.03 %) nasal spray USE 2 SPRAY(S) IN EACH NOSTRIL THREE TIMES DAILY NEEDED FOR ALLERGIE S 06/25 completed Not Available Not Available Not Available amoxicill in 875 mg-potass ium clavulana te 125 mg tablet Take 1 tablet every 12 hours by oral route for 7 days. 02/10 completed Not Available Not Available Not Available lactulose 10 gram/15 mL oral solution TAKE 45 ML BY MOUTH EVERY 2 HOURS UNTIL DESIRED LAXATIVE EFFECT 06/25 completed Not Available Not Available Not Available ipratropi um bromide three times daily 10/05 completed 0; Recorded 07/08/20 22 9:09AM by Jennifer Alvarez, Office Visit; Not Available Not Available Not Available Multivita mins daily 06/25 completed 0; Recorded 07/08/20 22 9:10AM by Jennifer Alvarez, Office Visit; Not Available Not Available Not Available latanopro st at bedtime 06/25 completed 0; Recorded 07/08/20 9:10AM by Jennifer Alvarez, Office Visit; Not Available Not Available Not Available acetamino phen-brom elains every 6 hours as needed for pain 03/24 completed 0; Recorded 07/08/20 22 9:10AM by Jennifer Alvarez, Office Visit; Not Available Not Available Not Available Alphagan P 0.1 % eye drops INSTILL 1 DROP INTO EACH EYE TWICE DAILY active Not Available Not Available No t Available brimonidi ne tartrate (bulk) two times daily 06/25 completed 0; Recorded 07/08/20 22 9:10AM by Jennifer Alvarez, Office Visit; Not Available Not Available Not Available Vitals Date Recorded Body height Body mass index (BMI) Body weight Body temperature Oxygen saturation Oxygen saturation in Arterial blood by Pulse oximetry Heart rate Systolic And Diastolic Provider Name and Address Organization Details Last Updated DateTime 5 157.48 cm 21.9 kg/m2 96538.2 9 g 97.4 [degF] 99 % 99 % 51 /min 146/82 mm[Hg] [facility] 5 11:00:47 Date Recorded Body height Body mass index (BMI) Body weight Oxygen saturation Oxygen saturation in Arterial blood by Pulse oximetry Heart rate Respiratory rate Body temperature Systolic And Diastolic Provider Name and Address Organization Details Last Updated DateTime 4 157.48 cm 23.4 kg/m2 71076.5 2 g 97 % 97 % 84 /min 16 /min 98.5 [degF] 128/70 mm[Hg] Jo Stewart [facility] 4 15:02:05 Date Recorded Body height Body mass index (BMI) Body weight Body temperature Oxygen saturation Oxygen saturation in Arterial blood by Pulse oximetry Heart rate Systolic And Diastolic Provider Name and Address Organization Details Last Updated DateTime 4 157.48 cm 23.1 kg/m2 27903.4 4 g 97.4 [degF] 97 % 97 % 85 /min 140/84 mm[Hg] [facility] 4 14:34:45 Date Recorded Body height Respiratory rate Body mass index (BMI) Body weight Body temperature Heart rate Oxygen saturation Oxygen saturation in Arterial blood by Pulse oximetry Systolic And Diastolic Provider Name and Address Organization Details Last Updated DateTime 4 157.48 cm 20 /min 21.7 kg/m2 74507.7 g 97 [degF] 80 /min 96 % 96 % 120/78 mm[Hg] JENNIFER [facility] 4 11:42:24 Date Recorded Body height Respiratory rate Body mass index (BMI) Body weight Body temperature Oxygen saturation Oxygen saturation in Arterial blood by Pulse oximetry Heart rate Systolic And Diastolic Provider Name and Address Organization Details Last Updated DateTime 4 157.48 cm 20 /min 21.1 kg/m2 20995.9 2 g 97.4 [degF] 98 % 98 % 88 /min 120/74 mm[Hg] [facility] 4 11:26:19 Social History Question Answer Notes LastModified by [employer] Details LastModified Time Tobacco Smoking Status Never [facility]oker [facility] 01/01/2025 10:56:21 Are You Blind Or Do You Have Difficulty Seeing? No Information not available 01/01/2025 What Is Your Level Of Caffeine Consumption? Occasional Information not available 01/01/2025 Are You Deaf Or Do You Have Serious Difficulty Hearing? No Information not available 01/01/2025 Sex: Unknown Functional Status Question Answer Note LastModified by [employer] Details LastModified Time Do you use any illicit or recreational drugs? No Information not available 01/01/2025 What is your level of alcohol consumption? None Information not available 01/01/2025 Are you currently employed? No Information not available 01/01/2025 Are you able to walk? YESWOREST Information not available 01/01/2025 Are you able to care for yourself? Yes Information n ot available 01/01/2025 Mental Status Question Answer Note LastModified by Organization D etails LastModified Time Do you have difficulty concentrating, remembering or making decisions? No Information no t available 01/01/2025 Family History Nothing Reported. Medical History No medical history recorded. Gynecological HistoryNo gynecological history recorded. Obstetrics History GPAL:G 0 P 0 0 0 0 Immunizations Vaccine Type Date Status Note Provider Nam e and Address Organization Details Recorded Time zoster recombinant 2 completed JENNIFER shannon [facility] 06/16/2024 17:38:13 zoster recombinant 3 completed JENNIFER shannon [facility] 06/16/2024 17:38:13 COVID-19, mRNA, LNP-S, PF, 30 mcg/0.3 mL dose 1 completed JENNIFER shannon [facility] 06/16/2024 17:38:13 COVID-19, mRNA, LNP-S, PF, 30 mcg/0.3 mL dose, roddy-sucrose 2 completed JENNIFER shannon [facility] 06/16/2024 17:38:13 Pneumococcal conjugate PCV20, polysaccharide [id number] conjugate, adjuvant, PF 4 completed Ben Yi MD [address] [place] [address], [phone], [facility] 06/26/2024 15:25:09 Influenza, adjuvanted, trivalent, PF 4 completed Ben Yi MD [address] [place] [address], [phone], [facility] 06/26/2024 15:25:09 Past Encounters Encounter ID Performer Location Encounter Start Date Encounter Closed Date Diagnosis/Indication Diagnosis SNOMED-CT Code Diagnosis ICD10 Code Diagnosis Note [id number] Ben Yi MD [facility] ([facility] [address] [place] [phone] 10/05/2023 14:33:12 10/05/2023 16:56:53 Psoriasis 9038753 L40.9 Possibly psoriasis on her skin. Will treat with steroids. Follow-up if rash returns. Malignant lymphoma of extranodal AND/OR solid organ site 56388594 C85.99 Primary ma lignant neoplasm of female breast 95159841 C50.912 Hyperlipidemia 95329195 E78.5 Spinal jacinto nosis of lumbar region 72422528 M48.062 Essential hypertension 55464529 I10 Patient had elevation of her blood pressure but it is improved today. The patient is not checking it at home, so encouraged her to do so. Follow-up if continued elevations of blood pressure are noted. Encouraged patient to make routine follow-ups . Follow-up in 3 months. [id number] Ben Yi MD [facility] ([facility]) [address] [place] [address] [phone] 11/25/2023 11:30:27 11/28/2023 20:27:06 Cellulitis [id number] L03.90 Concerned about infection developing in the wound. Will start antibiotic s. Discussed wound care with patient. Follow-up with PCP if symptoms do not improve or worsen. [id number] Ben Yi MD [facility] ([facility]) [address] [place] [address] [phone] 02/03/2024 10:35:25 02/03/2024 11:23:03 Dog bite of hand [id number] S61.451A Does takePatien t reports that the dog has been acting normal and it was unprovoked attack. Reasonable to do that regularly but does not believe he is up-to-date on rabies vaccinatio n. No changes in behavior that would suggest rabies infection. Would be a low risk for rabies and this was discussed with the patient patient. The patient opted to not proceed with rabies treatment. Discussed wound care. Recommend we do start antibiotic s given the fact that it is a bite on the hand. Follow-up if symptoms change or wound does not improving. [id number] Ben Yi MD [facility] ([facility]) [address] [place] [address] [phone] 02/07/2024 11:23:21 02/07/2024 12:01:27 Dog bite of hand [id number] S61.451A Concerned that the infection is contributi ng to the patient's pain. The wound itself does not look infected. Mended applying wet-to-dry dressings and this was demonstrat ed to the patient. Complete course of antibiotic s. Will follow-up in 1 week. [id number] MANN JOSE [facility] ([facility]) [address] [place] [address] [phone] 02/11/2024 14:49:21 02/11/2024 16:05:32 Dog bite of hand [id number] S61.451D Discussed to continue washing with soap and water daily. Keep area covered when outside. May open to air when inside. Return for wound check if you develop redness, purulent drainage, increased pain, or concerns arise. [id number] Ben Yi MD [facility] ([facility]) [address] [place] [address] [phone] 03/24/2024 14:25:37 03/24/2024 15:10:10 Essential hypertension [id number] I10 Reviewed pressure log. She has labile pressures. However, she has not been symptomati c. Patient states that her blood pressure has been persistent ly elevated since stopping amlodipine . She would like to have her blood pressure treated. We will restart amlodipine and I will continue to monitor her blood pressure at home. Follow-up in 3 months or sooner if there are issues. [id number] Ben Yi MD [facility] ([facility]) [address] [place] [address] [phone] 06/26/2024 11:35:08 06/26/2024 12:44:53 Essential hypertension [id number] I10 Continue amlodipine . Continue monitoring blood pressure at home. Active or passive immunization [id number] Z23 The patient is agreeable for flu shot today. The patient never got her second pneumonia shot so we will do a Prevnar 20 today. Chronic constipation 236 [id number] K59.09 stable Bilateral stenosis of carotid arteries [id number] I65.23 no sx Malignant tumor of breast [id number] C50.919 follows with oncology [id number] Ben Yi MD [facility] ([facility]) [address] [place] [address] [phone] 10/02/2024 11:06:46 10/02/2024 11:42:05 Foot pain [id number] M79.672 Given the patient's concerns and the state of her foot, podiatry referral would be warranted. Patient was agreeable with this plan. Cheko toe [id number] M20 .42 [id number] Ben Yi MD [facility] ([facility]) [address] [place] [address] [phone] 01/01/2025 10:44:30 01/01/2025 11:21:10 Essential hypertension 08455277 I10 Given the elevations in blood pressure I do recommend that we restart blood pressure medication s. With amlodipine to 2.5 mg that she was tolerating this medication previously . Degenerati on of lumbar intervertebral disc [id number] M51.369 Patient denies any significan t back pain or pain concerns today. Hyperlipidemia 18770994 E78.5 Bilateral stenosis of carotid arteries [id number] I65.23 no sx Chronic bronchiolitis 73 9887811 J44.9 Chronic constipation 236 883151 K59.09 stable Gastroesop hageal reflux disease 151131044 K21.9 History of fall 29824252 9 Z91.81 Frail elderly [id number] R54 Need for [facility] care assistance [phone] [id number] Z74.1 Health Concerns Section Related Observation LastModified by Organization Detai ls LastModified Time None Recorded Concern Status LastModified by Organization Details LastModified Time None Recorded Advance Directives Directive None Recorded Payers Insurance Date Sequence Insurance Name Policy Number Policy Lee Covered Member ID Lee Member ID Guarantor Name 01/01/2025 1 [place] [id number] Jenna Nye [id number] Jenna Nye 01/01/2025 1 [place]/A DVANTAGE - PPO) [id number] Jenna Nye [id number] Jenna Nye Notes Date Note Type Note Provider Name and Address Organization Details Recorded Time 02/11/2024 text/html [facility] bypatient.Location:[facility]; right hand Quality:tender walk in patientpatient is here today for a bite on her right hand from her Dog, patient seen Dr Yi on 02/03/24 and he put her on Augmentin. Pt had a f/u on 02/[address] Yi for a wound check. 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 Has been keeping it clean and covered with a band aid. MANN JOSE [address] [place], [phone], [facility], LDonavanLJimi. 02/11/2024 16:19:27 03/24/2024 text/html This is a 78-yea r-old female that comes in today to discuss blood pressure. Patient states that she has been having some elevated blood pressure readings. Patient brings a log of her blood pressure readings with her today. No other concerns today. Ben Yi MD [address] [place] [address], [phone], [facility], LDonavanLDonavanC. 03/26/2024 08:08:06 06/26/2024 text/html Annual WellnessReported bypatient.Diet and Nutrition:healthy diet Fracture Risk:no history of fractures; no recent explained fracture; no sudden unexplained fractures; no previous musculoskeletal injuries Physical Activity:discussed weightbearing activities; discussed exercise habits Additional Lifestyle Factors:no tobacco use; no alcohol intake Depression Risk:never feels sad, empty, or tearful; no loss of interest in activities; no significant changes in weight; no sleep disturbances or insomnia; no agitation; no loss of energy; no feelings of worthlessness or guilt; no thoughts of suicide; no history of depression; no history of mood disorders Hearing:no loss of hearing Vision:no vision problems This is an 78-year-old female comes in today for routine follow-up. Patient denies any acute concerns today. Has been checking her blood pressure at home and it is good when she checks it at home. Patient is tolerating her medication without any issues. Ben Yi MD [address] [place] [address], [phone], [facility], LDonavanLDonavanC. 06/26/2024 15:32:14 10/02/2024 text/html This is an 79-ye ar-old female comes in today with left foot pain. The patient has a callus on the bottom of her left foot that has been hurting and bothering her. Also has calluses on the tips of her toes of the same foot. Ben Yi MD [address] [place] [address], [phone], [facility], L[facility] 10/03/2024 13:29:17 01/01/2025 text/html Hypertension IM/FMReported bypatient.Quality:here for check-up Associated Symptoms:no shortness of breath; no palpitations; no numbness; no tingling; no chest pain;headaches This is an 79-year-old female that comes in today for routine follow-up. Patient denies any acute concerns today. Did state that her blood pressure was elevated today. Blood pressure remains elevated when checked in the clinic today. The patient states that she was told by someone to stop her medications. The patient does not recall who told her to stop. The patient is not currently taking any blood pressure medications. Patient denies any concerns today. Ben Yi MD [address] [place] [address], [phone], [facility], L[facility] 01/01/2025 12:21:23 OBGyn Episode No OBEpisode recorded.
--- OUTSIDE RECORDS SUMMARY | 2025-05-12 17:22 | XMS_ITS | Encounter Summary ---
Author Organization [facility] Address [address] [place] [address] Care Team Providers Care Marine Technician Name Role Phone Unavailable Primary Care Provider Unavailabl e Reason for Referral * PET Scan (Urgent) - Closed Specialty Diagnoses / Procedures Referred By Deborah rasheed Referred To Contact Radiology Diagnoses Lymphoma, non-Hodgkin's (CMS/HCC) Procedures PET TUMOR IMG W CT SKL BSE MID THG Deana Barahona FNP [address] [place] [address] Phone: tel: fax: [facility] Nuclear Medicine [address] [place] [phone] Phone: tel: fax: Referral ID Status Reason Start Date Expiration Date V isits Requested Visits Authorized [id number] Closed [facility] to Schedule 08/12/2020 10/10/2020 1 1 Encounter Details Date Type Department Care Team (Late st Contact Info) Description 06/27/2020 Ancillary Orders [facility] Pre-Registration [place] CALL TO MAKE APPOINTMENT ONLY [address] [place] [address] Deana Barahona FNP [address] [place] [address] Lymphoma, non-Hodgkin's (CMS/HCC) Social History Tobacco Use Types Packs/Day Years Used Date Smoking Tobacco: Never Assessed Comments Unknown Sex and Gender Information Value Date Recorded Sex Assigned at Not on file Legal Sex Female 4:51 PM CDT Gender Identity Not on file Sexual Orientation Not on file documented as of this encounter Plan of Treatment Not on file documented as of this encounter Results * PET TUMOR IMG W CT SKL BSE MID THG (08/15/2020 4:15 PM CDT) Anatomical Region Laterality Modality Nuclear Medicine 08/15/2020 4:15 PM CDT Impressions 08/15/2020 5:53 PM CDT IMPRESSION: 1. No hypermetabolic lymph nodes are seen to suggest metabolically active disease. 2. Right breast nodular lesion shows hypermetabolic activity and raises concern for primary breast carcinoma. There are left breast foci that show metabolic uptake as well. Bilateral mammographic/ultrasound correlation is recommended. Ultimately tissue diagnosis may be needed. 3. Groundglass right lower lobe focus measuring 7 mm shows only mild uptake below that of the mediastinal blood pool and favors an infectious/inflammatory entity. Precautionary follow-up CT in three months is recommended to document stability or persistence given that this lesion is technically below PET/CT size evaluation threshold. 4. Incidental findings as above. This laboratory has been accredited by the [employer]oci[employer] Commission for the Accreditation of Nuclear Medicine Laboratories (IAC Nuclear/PET). [id number] Narrative 08/15/2020 5:53 PM CDT Radionuclide PET Metabolic Tumor Imaging with CT Attenuation Correction and Anatomic Localization from Skull Base to Mid Thigh: Radiopharmaceutical: V-20-[id number] Dose: 13.9 mCi right AC IV Time of Injection: 14:40 hrs Clinical Indication: Initial treatment strategy to evaluate non-Hodgkin lymphoma. FDG (S-30-Xilqxcafslkifbyzvn) PET imaging was performed at 15:40 hrs approximately one hour following intravenous infusion of the radiopharmaceutical agent using an integrated 16-slice PET/CT scanner. A noncontrast CT scan was performed for attenuation correction of PET data and for anatomic localization. No contrast was administered. Imaging was performed from the skull base to mid thigh levels with subsequent reconstruction of full trunk, orthogonal view slices in transverse, sagittal, and coronal projections which were reviewed along with dynamic multiimage planar and non attenuation corrected sagittal views. Blood glucose at the time of tracer injection was 102 mg/dl with normal biodistribution of tracer. The quality of this examination is acceptable with regards to count density, processed images, data display and lack of important artifacts (including but not limited to motion and attenuation artifacts). Head/Neck: No suspicious focal uptake. Thorax: Mediastinal blood pool shows a max SUV of 2.56. There is a right breast nodule noted on image 92 that measures approximately 9 mm in size and shows a max SUV of 3.39. Peripheral left breast strand-like density on image 101 shows a max SUV of 2.34. There is a more nodular mid left breast 9 mm focus of nodularity that shows max SUV of 1.86 on image 89. Right lower lobe 7 mm groundglass focus shows a max SUV of 1.49 on image 88. No suspicious other pulmonary nodules. No suspicious lavelle uptake is seen within the chest otherwise. Abdomen/Pelvis: Hepatic background shows a max SUV of 3.07. No suspicious abdominal/pelvic lavelle uptake. The spleen is not enlarged or hypermetabolic. Mild left colon diverticulosis is noted without evidence of diverticulitis. Musculoskeletal: No suspicious focal uptake. Procedure Note Bill Dempsey MD - 08/15/2020 Radionuclide PET Metabolic Tumor Imaging with CT Attenuation Correction and Anatomic Localization from Skull Base to Mid Thigh: Radiopharmaceutical: W-40-Ydyezzbwdsvvcqkepn Dose: 13.9 mCi right AC IV Time of Injection: 14:40 hrs Clinical Indication: Initial treatment strategy to evaluate non-Hodgkin lymphoma. FDG (S-98-Ysubsmjmmyrruxmokz) PET imaging was performed at 15:40 hrs approximately one hour following intravenous infusion of the radiopharmaceutical agent using an integrated 16-slice PET/CT scanner. A noncontrast CT scan was performed for attenuation correction of PET data and for anatomic localization. No contrast was administered. Imaging was performed from the skull base to mid thigh levels with subsequent reconstruction of full trunk, orthogonal view slices in transverse, sagittal, and coronal projections which were reviewed along with dynamic multiimage planar and non attenuation corrected sagittal views. Blood glucose at the time of tracer injection was 102 mg/dl with normal biodistribution of tracer. The quality of this examination is acceptable with regards to count density, processed images, data display and lack of important artifacts (including but not limited to motion and attenuation artifacts). Head/Neck: No suspicious focal uptake. Thorax: Mediastinal blood pool shows a max SUV of 2.56. There is a right breast nodule noted on image 92 that measures approximately 9 mm in size and shows a max SUV of 3.39. Peripheral left breast strand-like density on image 101 shows a max SUV of 2.34. There is a more nodular mid left breast 9 mm focus of nodularity that shows max SUV of 1.86 on image 89. Right lower lobe 7 mm groundglass focus shows a max SUV of 1.49 on image 88. No suspicious other pulmonary nodules. No suspicious lavelle uptake is seen within the chest otherwise. Abdomen/Pelvis: Hepatic background shows a max SUV of 3.07. No suspicious abdominal/pelvic lavelle uptake. The spleen is not enlarged or hypermetabolic. Mild left colon diverticulosis is noted without evidence of diverticulitis. Musculoskeletal: No suspicious focal uptake. IMPRESSION: 1. No hypermetabolic lymph nodes are seen to suggest metabolically active disease. 2. Right breast nodular lesion shows hypermetabolic activity and raises concern for primary breast carcinoma. There are left breast foci that show metabolic uptake as well. Bilateral mammographic/ultrasound correlation is recommended. Ultimately tissue diagnosis may be needed. 3. Groundglass right lower lobe focus measuring 7 mm shows only mild uptake below that of the mediastinal blood pool and favors an infectious/inflammatory entity. Precautionary follow-up CT in three months is recommended to document stability or persistence given that this lesion is technically below PET/CT size evaluation threshold. 4. Incidental findings as above. This laboratory has been accredited by the In[employer]oci[employer] Commission for the Accreditation of Nuclear Medicine Laboratories (IAC Nuclear/PET). [id number] Deana Barahona [facility] PE ORDERABLES Final Result documented in this encounter Visit Diagnoses Diagnosis Lymphoma, non-Hodgkin's (CMS/HCC) Lymphosarcoma, unspecified site, extranodal and solid organ sites Lymphoma, non-Hodgkin's (CMS/HCC) Lymphosarcoma, unspecified site, extranodal and solid organ sites documented in this encounter
--- NOTE | 2025-05-12 17:46 | XRR_ITS ---
PROCEDURE INFORMATION: Exam: XR Abdomen Exam date and time: 05/12/2025 6:03 PM Age: 79 years old Clinical indication: Abdominal pain; Abdomen pain; N/v/d TECHNIQUE: Imaging protocol: Radiologic exam of the abdomen. Views: 2 Views. Upright and supine views. COMPARISON: CT chest abdpel w/*[id number] 08/02/2023 9:21 AM FINDINGS: Lungs: No large focal consolidation. Pleural spaces: No large pleural effusion. No distinct pneumothorax. Heart/Mediastinum: Cardiomediastinal silhouette is midline and normal in size. Gastrointestinal tract: Moderate colonic stool burden. No evidence of bowel obstruction. Intraperitoneal space: No evidence of intra-abdominal free air. Bones/joints: Status post bilateral hip arthroplasty. XR/XR acute abdomen series [id number] IMPRESSION: Moderate colonic stool burden.
[2025-05-12] MEDS: ondansetron 2 mg/ML SDV 2 mL 4 MG IVP (17:58)
--- NOTE | 2025-05-12 17:58 | ED_ITS ---
HPI - Nausea/Vomiting/Diarrhea 2 General: Chief complaint: Nausea/Vomiting/Diarrhea Stated complaint: throat hurting Time Seen by Provider: 05/12/25 17:30 History of Present Illness: 79-year-old female history of constipati on, hypertension presents to ED with nausea, vomiting, diffuse abdominal pain x 1 day. She has association of constipation. She has not noted if she is passing gas. Surgical abdominal history include open cholecystectomy, hysterectomy. Unknown when her last colonoscopy or if she has had 1. Patient cannot recall. Associated nausea: Yes Associated symtoms: Reports nausea; Denies anxiety, change in vision, chest pain, headache(s) or palpitations Related Data Home Medications ?Medication ?Instructions ?Recorded ?Confirmed bismuth subsalicylate 262 mg/15 mL 262 mg PO DAILY PRN Diarrhea 01/18/24 10/17/24 oral suspension (Pepto-Bismol) brimonidine 0.1 % eye drops 1 drp ophthalmic (eye) BID 01/18/24 10/17/24 (Alphagan P) magnesium hydroxide 400 mg/5 mL 30 ml PO QPM PRN Const ipation 01/18/24 10/17/24 oral suspension (Milk of Magnesia) sennosides 25 mg tablet (Ex-Lax 25 mg PO DAILY PRN Con stipation 01/18/24 10/17/24 Maximum Strength) sodium phosphates 19 gram-7 118 ml NE DAILY PRN Consti pation 01/18/24 10/17/24 gram/118 mL enema (Fleet Enema) amlodipine 2.5 mg tablet 2.5 mg PO DAILY 05/26/24 Previous Rx's ?Medication ?Instructions ?Recorded magnesium citrate (Citrate of 60 ml PO BID #296 mL 10/25 Magnesia oral) ondansetron 4 mg disintegrating 4 mg PO Q8H PRN nausea and 05/12/25 tablet vomiting 4 days #14 tabs Allergies Allergy/AdvReac Type Severity Reaction Status Date / Time adhesive tape Allergy ALGY-Rash Verified 10/17/24 11:01 Influenza Virus Vaccines Allergy ALGY-Rash Verified 10/17/24 11:01 Review of Systems 2 General: Reports: 10 or more systems reviewed and unremarkable except in HPI and below Const: Denies: fever(s) or chills Eyes: Denies: change in vision or blurry vision ENMT: Denies: throat pain Card: Denies: chest pain or palpitations Resp: Denies: dyspnea or productive cough GI: Reports: abdominal pain, nausea, vomiting and change in stool character : Denies: flank pain or difficulty voiding Musc: Denies: neck pain, back pain or extremity pain Skin/Breast: Denies: rash, pruritus or erythema Neuro: Denies: headache(s) or numbness in extremities Psych: Denies: anxiety or depression Hector/Lymph: Denies: easy bruising or easy bleeding PFSH ED 2 PFSH: Medical History (Updated 05/12/25 @ 18:53 by JOVAN Potter) GERD (gastroesophageal reflux disease) Bilateral carotid artery stenosis without cerebral infarction Closed head injury Hyperlipidemia 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 disc disorder 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 region Lumbar stenosis without neurogenic claudication Stenosis of cervical spine with 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 Pain management contract signed HX: breast cancer ER NE negative, 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 status post radiation therapy and hormonal therapy, currently on Femara Stroke (cerebrum) Hx of stroke in February 07, 2019 Spondylolisthesis of cervical region Cervical disc disorder with myelopathy of mid-cervical region Chronic bronchitis Surgical History Status post carotid endarterectomy History of left breast biopsy Port-A-Cath in place 04/16/20 History of cholecystectomy History of hysterectomy / BSO / appendectomy H/O total hip arthroplasty Right Social History Smoking and tobacco/nicotine status: never used tobacco/nicotine Alcohol intake: never Substance/Drug Use: never Lives independently: Yes Household members: spouse Marital status: Current occupational status: retired Physical Exam 2 Const: COMMON NORMALS: no acute distress, average body habitus and patient oriented x3 HENMT: COMMON NORMALS: normocephalic and atraumatic HEAD & SCALP: n ormocephalic and atraumatic Neck/C-Spine: COMMON NORMALS: full ROM and no lymphadenopathy Chest: COMMONS NORMALS: normal inspection of the chest and normal palpation of entire chest wall Resp: COMMON NORMALS: normal respiratory effort and No retractions Cardio: COMMON NORMALS: regular rate and regular rhythm RATE: regular rate RHYTHM: regular rhythm GI: COMMON NORMALS: non-tender INSPECTION: Yes normal to inspection A USCULTATION: Yes Hyperactive bowel sounds present PALPATION: Yes Firmness to palpation present (GI), No Tenderness to palpation present (GI) and No Guarding due to palpation present (GI) PERCUSSION: normal to percussion and dullness to percussion : COMMON NORMALS: Yes no CVA tenderness BLADDER/KIDNEY EXAM: Yes no CVA tenderness Back/Pelvis: COMMON NORMALS: no CVA tenderness Extremity: COMMON NORMALS: normal to inspection and full ROM Neuro: COMMON NORMALS: patient oriented x3 Psych: COMMON NORMALS: mental status grossly normal, Normal thought process present and cooperative THOUGHT PROCESS: Normal thought process present Skin: COMMON NORMALS: no rashes or lesions noted and no wounds GENERAL SKIN EXAM: no rashes or lesions noted Course 2 Vital Signs: Vital signs: Vital Signs Temperature 97.9 F 05/12/25 17:22 Pulse Rate 89 05/12/25 19:24 Respiratory Rate 16 05/12/25 17:22 Blood Pressure 199/86 05/12/25 19:24 Pulse Oximetry 93 05/12/25 19:24 Oxygen Delivery Me thod Room Air 05/12/25 19:07 MDM - Nausea/Vomiting/Diarrhea Medical Decision Making Patient is a pleasant 79-year-old female presents ED with nausea, vomiting, constipation presented to the ED with workup essentially negative except for large burden of stool noted on my view in the colon. Plan is for laxatives, clear liquid diet, and control the nausea. Patient states understanding. All of her and her son's questions were answered to their satisfaction. Lab Data 05/12/25 18:39 05/12/25 18:39 Radiology Impressions Chest/Abdomen X-ray 05/12/25 17:46 IMPRESSION: Moderate colonic stool burden. Laboratory Results WBC 9.78 10^3/uL (3.29-11.43) 05/12/25 18:39 RBC 4.58 10^6/uL (3.85-5.65) 05/12/25 18:39 Hgb 13.90 g/dL (11.27-16.99) 05/12/25 18:39 Hct 43.5 % (36-47) 05/12/25 18:39 MCV 95.0 fl (85-98) 05/12/25 18:39 MCH 30.3 pg (27-33) 05/12/25 18:39 MCHC 32.0 g/dL (30-55) 05/12/25 18:39 RDW 13.9 % (12.1-15.1) 05/12/25 18:39 Plt Count 238 10^3/cmm (157-399) 05/12/25 18:39 MPV 9.7 fL (7.4-10.4) 05/12/25 18:39 Neut % (Auto) 48.1 % 05/12/25 18:39 Lymph % (Auto) 37.1 % 05/12/25 18:39 Benton % (Auto) 11.7 % 05/12/25 18:39 Eos % (Auto) 1.9 % 05/12/25 18:39 Baso % (Auto) 1.0 % 05/12/25 18:39 Neut # (Auto) 4.70 10^3/uL (1.8-7.7) 05/12/25 18:39 Lymph # (Auto) 3.6 10^3/uL (0.8-4.8) 05/12/25 18:39 Benton # (Auto) 1.1 10^3/uL (0.2-0.9) H 05/12/25 18:39 Eos # (Auto) 0.2 10^3/uL (0.0-0.8) 05/12/25 18:39 Baso # (Auto) 0.1 10^3/uL (0.0-0.1) 05/12/25 18:39 Nucleated RBC % (auto) 0 % 05/12/25 18:39 Nucleated RBCs # 0.0 /100WBC 05/12/25 18:39 Sodium 139 mmol/L (136-145) 05/12/25 18:39 Potassium 3.6 mmol/L (3.5-5.1) 05/12/25 18:39 Chloride 101 mmol/L (98-107) 05/12/25 18:39 Carbon Dioxide 24 mmol/L (22-29) 05/12/25 18:39 Anion Gap 17.6 (5-19) 05/12/25 18:39 BUN 22 mg/dL (8-23) 05/12/25 18:39 Creatinine 0.6 mg/dL (0.5-0.9) 05/12/25 18:39 GFR Calculation Not Reportable 05/12/25 18:39 Glucose 84 mg/dL (65-115) 05/12/25 18:39 Calculated Osmolality 291 mOsm/kg (285-295) 05/12/25 18:39 Lactic Acid 1.3 mmol/L (0.5-2.2) 05/12/25 18:39 Calcium 9.8 mg/dL (8.5-10.5) 05/12/25 18:39 Total Bilirubin 0.4 mg/dL (0.15-1.2) 05/12/25 18:39 AST 24 U/L (0-32) 05/12/25 18:39 ALT 14 U/L (0-33) 05/12/25 18:39 Alkaline Phosphatase 87 U/L (35-105) 05/12/25 18:39 C-Reactive Protein 3.7 mg/L (0.0-4.9) 05/12/25 18:39 Total Protein 7.5 g/dL (6.6-8.7) 05/12/25 18:39 Albumin 4.0 g/dL (3.5-5.2) 05/12/25 18:39 Globulin 3.5 g/dL (1.3-4.6) 05/12/25 18:39 Lipase 17 U/L (13-60) 05/12/25 18:39 Urine Color Yellow (Yellow) 05/12/25 18:20 Urine Appearance Clear (CLEAR) 05/12/25 18:20 Urine pH 8.5 (5-7) A 05/12/25 18:20 Ur Specific [place] 1.006 (1.005-1.030) 05/12/25 18:20 Urine Protein Negative (Negative) 05/12/25 18:20 Urine Glucose (UA) Negative (Normal) 05/12/25 18:20 Urine Ketones Negative (Negative) 05/12/25 18:20 Urine Blood Negative (Negative) 05/12/25 18:20 Urine Nitrate Negative (Negative) 05/12/25 18:20 Urine Bilirubin Negative (Negative) 05/12/25 18:20 Urine Urobilinogen 0.2 mg/dL (Negative) 05/12/25 18:20 Ur Leukocyte Esterase Trace (Negative) A 05/12/25 18:20 Urine RBC 0-2 /hpf (0-2) 05/12/25 18:20 Urine WBC 6-10 /hpf (0-5) 05/12/25 18:20 Ur Squamous Epith Cells 0-5 /hpf (0-5) 05/12/25 18:20 Amorphous Sediment Not Reportable 05/12/25 18:20 Urine Bacteria 1+ /hpf (NONE) H 05/12/25 18:20 Hyaline Casts 0-4 /lpf H 05/12/25 18:20 XR interpretation done by ED provider, pending radiology final review ED provider radiology interpretation(s): large amount of feces t/o colon Discharge Plan Discharge Patient Disposition: Home Clinical Impression: Obstipation Nausea & vomiting Qualifiers: Vomiting type: bilious vomiting Qualified Code(s): R11.14 - Bilious vomiting Condition: Stable Prescriptions: New magnesium citrate [Citrate of Magnesia] Solution 60 ml PO BID Qty: 296 0RF ondansetron 4 mg tablet,disintegrating 4 mg PO Q8H PRN (Reason: nausea and vomiting) 4 Days Qty: 14 0RF No Action amlodipine 2.5 mg tablet 2.5 mg PO DAILY magnesium hydroxide [Milk of Magnesia] 400 mg/5 mL Suspension 30 ml PO QPM PRN (Reason: Constipation) bismuth subsalicylate [Pepto-Bismol] 262 mg/15 mL Suspension 262 mg PO DAILY PRN (Reason: Diarrhea) Fleet Enema 19-7 gram/118 mL Enema 118 ml NE DAILY PRN (Reason: Constipation) Ex-Lax Maximum Strength 25 mg Tablet 25 mg PO DAILY PRN (Reason: Constipation) brimonidine [Alphagan P] 0.1 % drops 1 drp ophthalmic (eye) BID Discharge Orders: Discharge ED (Routine); Ordered 05/12/25 Ordered By: Bekah Savage Referrals: Jackson Yi MD [Primary Care Provider, Family Practice] Discharge Diet: Clear Liquid Patient Instructions: Clear Liquid Diet, Full Liquid Diet, Constipation (ED), Patient Portal & Sumaya Instructions Activity Restrictions/Additional Instructions: Take senna S x 2 pills at night Take the magnesium citrate bottle, 60 mL twice a day until 3?4 stools Only utilize ondansetron for ongoing nausea and vomiting. This medication can cause you constipation Clear liquid diet until pain and nausea resolves. Increase your fluid intake. Go to a timed drinking system. It is time to take a drink. Despite being thirsty or not, take a drink of noncaffeinated beverage. You need to be intaking 2500 mL/a day Return to ED for worsening pain, ongoing nausea, vomiting, or fever greater than 100.4, inability to pass gas Print Language: Ivorian Coding Level of Care Code ED Cornice Upholsterer for Hardy Enriquez
[2025-05-12 18:00] VITALS: BP 201/94; PULSE 85; O2SAT 97
--- NOTE | 2025-05-12 18:08 | PC.NURSE ---
pt states multiple complaints, pt states right hip pain, then changes it to nausea that is new onset x1hr. pt son then states she was c/o constipation. Pt seems a/o but is having confusion. Janette notified and aware.
[2025-05-12 18:35] LABS: Glucose Urine UA Negative (Normal); Nitrate Urine Negative (Negative); Specific Gravity, Urine 1.006 (1.005-1.030)
[2025-05-12 18:40] LABS: Add Urine Microscopic? YES
[2025-05-12 18:47] LABS: Hematocrit 43.5 % (36-47); Hemoglobin 13.90 g/dL (11.27-16.99); Mean Corpuscular HGB Conc 32.0 g/dL (30-55); Mean Corpuscular Hemoglobin 30.3 pg (27-33); Mean Corpuscular Volume 95.0 fl (85-98); Nucleated Red Blood Cells % 0 %; Platelet Count 238 10^3/cmm (157-399); Red Blood Count 4.58 10^6/uL (3.85-5.65); White Blood Count 9.78 10^3/uL (3.29-11.43)
[2025-05-12 19:04] LABS: Alanine Aminotransferase 14 U/L (0-33); Albumin Level 4.0 g/dL (3.5-5.2); Alkaline Phosphatase 87 U/L (35-105); Anion Gap 17.6 (5-19); Aspartate Amino Transferase 24 U/L (0-32); Blood Urea Nitrogen 22 mg/dL (8-23); Calcium 9.8 mg/dL (8.5-10.5); Carbon Dioxide 24 mmol/L (22-29); Chloride 101 mmol/L (98-107); Globulin 3.5 g/dL (1.3-4.6); Glucose 84 mg/dL (65-115); Lactic Sepsis W/Reflex 1.3 mmol/L (0.5-2.2); Lipase 17 U/L (13-60); Osmolality Calculated 291 mOsm/kg (285-295); Potassium 3.6 mmol/L (3.5-5.1); Sodium 139 mmol/L (136-145); Total Protein 7.5 g/dL (6.6-8.7)
[2025-05-12 19:07] VITALS: BP 199/86; PULSE 91; O2SAT 93
[2025-05-12 19:24] VITALS: BP 199/86; PULSE 89; O2SAT 93
== END 2025-05-12 19:25 | disposition home or self-care (01) ==
PROVIDERS: Emergency Provider Physician Assistant; PCP Family Medicine
DX: K59.00 Constipation, unspecified (principal); R11.14 Bilious vomiting; E78.5 Hyperlipidemia, unspecified
CPT/HCPCS: 36415; 74022; 80053; 81001; 83605; 83690; 85025; 86140; 96361; 96374; 99284; J2405; J7030

== ENCOUNTER 2025-05-17 09:41 | Emergency (ER) | payer MEDICARE, SELFPAY ==
[2025-05-17 09:42] VITALS: BP 172/75; PULSE 77; RESP 17; TEMP 36.6; O2SAT 98; BMI 22.8
--- NOTE | 2025-05-17 09:58 | XR_ITS ---
WS: [id number] XR hip RT 2-3V wo/w pel* [id number] REASON FOR EXAM: hip pain FINDINGS: No acute fracture. Total right hip arthroplasty. Components of the arthroplasty are intact and in proper position and alignment. Lucency in the greater trochanter adjacent to the femoral component. The left YASIR is relatively unchanged compared to 02/23/2022. XR/XR hip RT 2-3V wo/w pel* [id number] IMPRESSION: Stable total left hip arthroplasty with no acute abnormality.
--- OUTSIDE RECORDS SUMMARY | 2025-05-17 10:00 | XMS_ITS | Clinical Summary ---
Author Organization [facility] Address [address] [place] [address] Phone Care Team Providers Care Personnel Technician Name Role Phone Unavailable Primary Care [...] 2018 INFLUENZA VACCINE (#1) [address] [place] [id number] [facility]
--- OUTSIDE RECORDS SUMMARY | 2025-05-17 10:00 | XMS_ITS | Encounter Summary ---
Author Organization [facility] Address [address] [place] [address] Care Team Providers Care Boilers And Pressure Vessels Inspector Name Role Phone Unavailable Primary Care Provider Unavailabl e Reason for Referral * PET Scan (Urgent) - Closed Specialty Diagnoses / Procedures Referred By Deborah rasheed Referred To Contact Radiology Diagnoses Lymphoma, non-Hodgkin's (CMS/HCC) Procedures PET TUMOR IMG W CT SKL BSE MID THG Deana Barahona FNP [address] [place] [address] Phone: tel: fax: [facility] Nuclear [facility] [address] [place] [phone] Phone: tel: fax: Referral ID Status Reason Start Date Expiration Date V isits Requested Visits Authorized [id number] Closed [facility] CTS to Schedule 08/12/2020 10/10/2020 1 1 Encounter Details Date Type Department Care Team (Late st Contact Info) Description 06/27/2020 Ancillary Orders [facility] Pre-Registration [place] CALL TO MAKE APPOINTMENT ONLY [address] [place] [address] Deana Barahona FNP [address] [place] [address] Lymphoma, non-Hodgkin's (CMS/HCC) Social History [...] Accreditation of Nuclear Medicine Laboratories (IAC Nuclear/PET). [id number] Narrative 08/15/2020 5:53 PM CDT Radionuclide PET Metabolic Tumor Imaging with CT Attenuation Correction and Anatomic Localization from Skull Base to Mid Thigh: Radiopharmaceutical: [id number] Dose: 13.9 mCi right AC IV Time of Injection: 14:40 hrs Clinical Indication: Initial treatment strategy to evaluate non-Hodgkin lymphoma. FDG ([id number]) PET imaging was performed at 15:40 hrs [...] from Skull Base to Mid Thigh: Radiopharmaceutical: [id number] Dose: 13.9 mCi right AC IV Time of Injection: 14:40 hrs Clinical Indication: Initial treatment strategy to evaluate non-Hodgkin lymphoma. FDG ([id number]) PET imaging was performed at 15:40 hrs [...] Accreditation of Nuclear Medicine Laboratories (IAC Nuclear/PET). [id number] Deana Barahona [facility] PE ORDERABLES Final Result documented in this encounter Visit Diagnoses Diagnosis Lymphoma, non-Hodgkin's (CMS/HCC) Lymphosarcoma, unspecified site, extranodal and solid organ sites Lymphoma, non-Hodgkin's (CMS/HCC) Lymphosarcoma, unspecified site, extranodal and solid organ sites documented in this encounter
--- OUTSIDE RECORDS SUMMARY | 2025-05-17 10:00 | XMS_ITS | Clinical Summary ---
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
--- OUTSIDE RECORDS SUMMARY | 2025-05-17 10:00 | XMS_ITS | Encounter Summary ---
Author Organization [facility] Address [address] [place] [address] Care Team Providers Care Medical Laboratory Technical Officer Name Role Phone Unavailable Primary Care Provider Unavailabl e Encounter Details Date Type Department Care Team (Late st Contact Info) Description 10/16/2020 Ancillary Orders [facility] Pre-Registration [place] CALL TO MAKE APPOINTMENT ONLY [address] [place] [address] Carl Thompson MD [address] [place] [address] Non-Hodgkin lymphoma, unspecified, extranodal and solid organ sites (CMS/HCC); Malignant neoplasm of upper-outer quadrant of left female breast (CMS/HCC); Estrogen receptor positive status (ER+); intermediate (current) use of aromatase inhibitors Social History [...] status (ER+) Estrogen receptor positive status [ER+] 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
--- OUTSIDE RECORDS SUMMARY | 2025-05-17 10:00 | XMS_ITS | Data Portability ---
Author Organization [facility]ANILO [facility] Address [address] [place] [id number] Care Team Providers Care Tank Riveter Name Role Phone BEN YI Primary Care [...] serum or plasma 2024 025 ZARA [facility], [address], [facility] 1, [place], [address], 12:33:14 CBC 2024 025 [facility]IRK [facility], [address], [address], [place], [address], 12:30:57 lipid panel, blood 2024 025 DUNKIRK [facility], [address], [address], [place], [address], 12:33:17 Referral certified personal trainer referral 2023 024 [facility], [address] [place], [address], 12:00:47 Procedures None recorded. Surgeries None recorded. Imaging None recorded. Medication Orders amlodipine 2.5 mg tablet 2024 025 [facility] 15, [address], [place], [address], 11:09:00 amlodipine 2.5 mg tablet 2023 025 [facility] 15, [address], [place], [address], 10:55:54 amlodipine 2.5 mg tablet 2023 024 [facility] 15, [address], [place], [address], 10:55:45 Patient TargetsNo targets recorded. Patient InstructionsNo instructions recorded. 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 Referring Physician: Ben Yi, Family Medicine, Encounter Date: 10/02/2024 Results Created Date Observation Date Name Description Value Unit Range Abnormal Flag Note LastModifiedBy Organization Detail LastModifiedTime 01/02/2001/01/2025 CBC WBC 8.2 x10 4.0-10 .5 Not Available [facility] [address], [place], [address], 01/01/2025 12:30:57 01/02/2001/01/2025 CBC RBC 4.28 x10 3.50-5 .50 Not Available [facility] [address], [place], [address], 01/01/2025 12:30:57 01/02/20 25 01/01/2025 CBC HGB 13.6 g/dL 12.0-1 6.0 Not Available [facility] [address] [facility] 1, [place], [address], 01/01/2025 12:30:57 01/02/20 25 01/01/2025 CBC HCT 40.2 % 37.0-4 7.0 Not Available [facility] [address] [facility] 1, [place], [address], 01/01/2025 12:30:57 01/02/20 25 01/01/2025 CBC MCV 94.0 fL 80.0-9 9.9 Not Available [facility] [address] [facility] 1, [place], [address], 01/01/2025 12:30:57 01/02/20 25 01/01/2025 CBC MCH 31.7 pg 27.0-3 2.0 Not Available [facility] [address] [facility] 1, [place], [address], 01/01/2025 12:30:57 01/02/20 25 01/01/2025 CBC MCHC 33.8 g/dL 32.0-3 6.0 Not Available [facility] [address] [facility] 1, [place], [address], 01/01/2025 12:30:57 01/02/20 25 01/01/2025 CBC RDW 13.9 % 11.5-1 4.5 Not Available [facility] [address] [facility] 1, [place], [address], 01/01/2025 12:30:57 01/02/20 25 01/01/2025 CBC plt 271.2 x10 140.0- 451.0 Not Available [facility] [address] [facility] 1, [place], [address], 01/01/2025 12:30:57 01/02/20 25 01/01/2025 CBC lymphocytes % 38.4 % 20.0-5 0.0 Not Available [facility] [address] [facility] 1, [place], [address], 01/01/2025 12:30:57 01/02/20 25 01/01/2025 CBC granulcytes % 49.9 % 30.0-7 0.0 Not Available [facility] [address] [facility] 1, [place], [address], 01/01/2025 12:30:57 01/02/20 25 01/01/2025 CBC monocytes % 10.3 % 2.0-16 .0 Not Available [facility] [address] [facility] 1, [place], [address], 01/01/2025 12:30:57 01/02/20 25 01/01/2025 CBC granulcytes# 4.1 x10 Not Sherice ilable [facility] [address] [facility] 1, [place], [address], 01/01/2025 12:30:57 01/02/20 25 01/01/2025 CBC lymphocytes # 3.1 x10 Not Available [facility] [address] [facility] 1, [place], [address], 01/01/2025 12:30:57 01/02/20 25 01/01/2025 CBC monocytes # 0.8 x10 Not Avai lable [facility] [address] [facility] 1, [place], [address], 01/01/2025 12:30:57 01/02/20 25 01/01/2025 CMP (FEMA LE) glucose 85.0 mg/dL 60.0-9 9.0 Not Available [facility] [address], [place], [address], 01/01/2025 12:33:14 01/02/20 25 01/01/2025 CMP (FEMA LE) BUN (blood urea nitrogen) 28.0 mg/dL 10.0-2 6.0 high Not Available [facility] [address] [facility] 1, [place], [address], 01/01/2025 12:33:14 01/02/20 25 01/01/2025 CMP (FEMA LE) creatinine (serum) 0.8 mg/dL 0.4-1. 5 Not Available [facility] [address] [facility] 1, [place], [address], 01/01/2025 12:33:14 01/02/20 25 01/01/2025 CMP (FEMA LE) BUN/creatini ne ratio 35.00 ratio Not Available [facility] [address] [facility] 1, [place], [address], 01/01/2025 12:33:14 01/02/20 25 01/01/2025 CMP (FEMA LE) eGFR calculated 73.2 Not Available [facility] [address] [facility] 1, [place], [address], 01/01/2025 12:33:14 01/02/20 25 01/01/2025 CMP (FEMA LE) total protein 8.1 g/dL 6.0-8. 5 Not Available [facility] [address] [facility] 1, [place], [address], 01/01/2025 12:33:14 01/02/20 25 01/01/2025 CMP (FEMA LE) total bilirubin 0.7 mg/dL 0.2-1. 3 Not Available [facility] [address] [facility] 1, [place], [address], 01/01/2025 12:33:14 01/02/20 25 01/01/2025 CMP (FEMA LE) albumin 4.5 g/dL 3.5-5. 5 Not Available [facility] [address] [facility], [place], [address], 01/01/2025 12:33:14 01/02/20 25 01/01/2025 CMP (FEMA LE) globulin 3.6 calc Not Available [facility] [address], [place], [address], 01/01/2025 12:33:14 01/02/20 25 01/01/2025 CMP (FEMA LE) AST (SGOT) 30.0 U/L 0.0-46 .0 Not Available [facility] [address], [place], [address], 01/01/2025 12:33:14 01/02/20 25 01/01/2025 CMP (FEMA LE) altv (SGPT) 18.0 U/L 13.0-6 9.0 normal Not Available [facility] [address], [place], [address], 01/01/2025 12:33:14 01/02/20 25 01/01/2025 CMP (FEMA LE) A/G ratio 1.3 ratio Not Available [facility] [address], [place], [address], 01/01/2025 12:33:14 01/02/20 25 01/01/2025 CMP (FEMA LE) ALP phos 89.0 U/L 30.0-1 40.0 normal Not Available [facility] [address], [place], [address], 01/01/2025 12:33:14 01/02/20 25 01/01/2025 CMP (FEMA LE) calcium 10.6 mg/dL 8.4-10 .5 high Not Available [facility] [address] [facility] 1, [place], [address], 01/01/2025 12:33:14 01/02/20 25 01/01/2025 CMP (FEMA LE) sodium 141.0 mmol/ L 136.0- 145.0 Not Available [facility] [address] [facility] 1, [place], [address], 01/01/2025 12:33:14 01/02/20 25 01/01/2025 CMP (FEMA LE) potassium 4.4 mmol/ L 3.5-5. 1 Not Available [facility] [address] [facility] 1, [place], [address], 01/01/2025 12:33:14 01/02/20 25 01/01/2025 CMP (FEMA LE) chloride 100.0 mmol/ L 98.0-1 10.0 normal Not Available [facility] [address] [facility] 1, [place], [address], 01/01/2025 12:33:14 01/02/20 25 01/01/2025 CMP (FEMA LE) C02 34.0 mmol/ L 22.0-3 1.0 high Not Available [facility] [address] [facility] 1, [place], [address], 01/01/2025 12:33:14 01/02/20 25 01/01/2025 CMP (FEMA LE) anion gap 7.0 calc Not Available [facility] [address] [facility] 1, [place], [address], 01/01/2025 12:33:14 01/02/20 25 01/01/2025 CMP (FEMA LE) osmolality 295.6 calc Not Available [facility] [address] [facility] 1, [place], [address], 01/01/2025 12:33:14 01/02/20 25 01/01/2025 LIPID PROFI LE (FEMA LE) cholesterol 250.0 mg/dL 0.0-20 0.0 high Not Available [facility] [address] [facility] 1, [place], [address], 01/01/2025 12:33:17 01/02/20 25 01/01/2025 LIPID PROFI LE (FEMA LE) trig 245.0 mg/dL 0.0-15 0.0 high Not Available [facility] [address] [facility] 1, [place], [address], 01/01/2025 12:33:17 01/02/20 25 01/01/2025 LIPID PROFI LE (FEMA LE) HDL - direct 40.0 mg/dL >40.0 Not Available [facility] [address] [facility] 1, [place], [address], 01/01/2025 12:33:17 01/02/20 25 01/01/2025 LIPID PROFI LE (FEMA LE) VLDL - direct 49.0 mg/dL Not Available [facility] [address] [address], [place], [address], 01/01/2025 12:33:17 01/02/20 25 01/01/2025 LIPID PROFI LE (FEMA LE) LDL - direct 161.0 mg/dL 0.0-13 0.0 high Not Available [facility] [address] [address], [place], [address], 01/01/2025 12:33:17 Result Notes None recorded. 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 5 16:44:28 Acute urinary tract infectio n 228137057 Completed 12/31/2024 Mere shannon [facility] 5 16:43:00 Carpal tunnel syndrome 73382207 Completed 01/01/2025 Removal Reason: s/p surgery Ben Yi MD [address] [place] [address], [phone], [facility], L.L.CDonavan 5 12:04:24 History of total hip arthropl asty 43587222066 6 Completed 01/01/2025 Ben Yi MD [address] [place] [address], [address], [facility], MadelineL.CDonavan 5 12:06:06 Cerebrov ascular accident 819981115 Completed 202101/01/2025 STROKE; 06/30/20 3:06PM by Arturo Hernandezic al Summary; Promoted ; acuity set as *; Ben Yi MD [address] [place] [address], [address], [facility], L[facility]C. 5 12:07:52 Chronic bronchio litis 540554782 Active 2021 CHRONIC BRONCHIO LITIS; 06/30/20 3:04PM by Jennifer Alvarez, Historic al Summary; Promoted ; acuity set as *; JENNIFER shannon, [facility], L[facility]C. 5 20:47:29 Bilatera l stenosis of carotid arteries 237034732 Active 2021 BILATERA L CAROTID ARTERY STENOSIS WITHOUT CEREBRAL INFARCTI ON; 06/30/20 3:07PM by Arturo Hernandezic al Summary; Promoted ; acuity set as *; Mere shannon [facility], L[facility] 5 10:13:12 Hyperlip idemia 03750335 Active 2021 HYPERLIP EMIA; 06/30/20 3:06PM by Arturo Hernandezic al Summary; Promoted ; acuity set as *; Mere shannon [facility] 5 16:44:46 Closed injury of head 07851014820 6 Completed 202112/31/2024 CLOSED HEAD INJURY; 06/30/20 3:04PM by Arturo Hernandezic al Summary; Promoted ; acuity set as *; Mere shannon [facility] 5 16:47:26 Gastroes ophageal reflux disease 669883465 Active 2021 GERD (GASTROE SOPHAGEA L REFLUX DISEASE) ; Impressi on: sx controll ed on current medicati ons.; Recorded 07/08/20 10:44AM by Ben Yi MD, Office Visit; Promoted ; acuity set as *; Mere shannon [facility] 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 5 12:06:55 Primary malignan t neoplasm of female breast 14811944 Completed 202201/01/2025 Ben Yi MD [address] [place] [address], [address], [facility], [facility] 5 12:07:23 Essentia l hyperten haider 50110100 Active 2022 Mere shannon [facility]. 16:43:37 Hammer toe 600914725 Active 2023 Mere shannon [facility]. 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 12:43:26 Problem Notes None recorded. Procedures Surgical History Date Name Laterality Status Provider Name and Address Organization Details Recorded Time procedure on hip completed DALE MARTINEZ [facility] 01/01/2025 10:57:34 Imaging Results None recorded. Procedure Notes None recorded. Medical Equipment None Reported. Allergies Allergen ID Allergen Name Allergen Category Reaction Reaction Severity Criticality Documentation Date Start Date Code Code System Note Provider Name and Address Organization Details Recorded Time 78510 adhesive bandage-a dhes.patsy vr1 medicatio n Not available Not available Not available 05/29/2023 66872 UNK Comme nt: Recor ded 07/08 9:11A M by There sa Alvarez Offic e Visit ; Promo [place]; Signi bryson ce: *; Reaso n: Drug aller gy; ; Not Available [facility] 3 02:25:20 11551 Vaccine product containin g only Influenza virus antigen (medicina l product) medicatio n Not available Not available Not available 05/29/2023 92525 34324 105 SNOMED Comme nt: Recor ded 07/08 9:11A M by There sa Alvarez , Offic e Visit ; Jun salvador; Joel massey ce: *; Reaso n: Drug aller gy; ; Ben Yi MD [address] [place] [address], [address], [facility] 4 12:11:50 Medications Name [...] Updated DateTime 5 157.48 cm 21.9 kg/m2 21892.2 9 g 97.4 [degF] 99 % 99 % 51 /min 146/82 mm[Hg] [facility] 5 11:00:47 Date Recorded Body height Body mass index (BMI) Body weight Oxygen saturation Oxygen saturation in Arterial blood by Pulse oximetry Heart rate Respiratory rate Body temperature Systolic And Diastolic Provider Name and Address Organization Details Last Updated DateTime 4 157.48 cm 23.4 kg/m2 74359.5 2 g 97 % 97 % 84 /min 16 /min 98.5 [degF] 128/70 mm[Hg] Jo Stewart [facility] 4 15:02:05 Date Recorded Body height Body mass index (BMI) Body weight Body temperature Oxygen saturation Oxygen saturation in Arterial blood by Pulse oximetry Heart rate Systolic And Diastolic Provider Name and Address Organization Details Last Updated DateTime 4 157.48 cm 23.1 kg/m2 91871.4 4 g 97.4 [degF] 97 % 97 % 85 /min 140/84 mm[Hg] [facility] 4 14:34:45 Date Recorded Body height Respiratory rate Body mass index (BMI) Body weight Body temperature Heart rate Oxygen saturation Oxygen saturation in Arterial blood by Pulse oximetry Systolic And Diastolic Provider Name and Address Organization Details Last Updated DateTime 4 157.48 cm 20 /min 21.7 kg/m2 96176.7 g 97 [degF] 80 /min 96 % 96 % 120/78 mm[Hg] JENNIFER [facility] 4 11:42:24 Date Recorded Body height Respiratory rate Body mass index (BMI) Body weight Body temperature Oxygen saturation Oxygen saturation in Arterial blood by Pulse oximetry Heart rate Systolic And Diastolic Provider Name and Address Organization Details Last Updated DateTime 4 157.48 cm 20 /min 21.1 kg/m2 19753.9 2 g 97.4 [degF] 98 % 98 % 88 /min 120/74 mm[Hg] [facility] 4 11:26:19 Social History Question Answer Notes LastModified by OneTok Details LastModified Time Tobacco Smoking Status Never [facility]oker [facility] 01/01/2025 10:56:21 Are You Blind Or Do You Have Difficulty Seeing? No Information not available 01/01/2025 What Is Your Level Of Caffeine Consumption? Occasional Information not available 01/01/2025 Are You Deaf Or Do You Have Serious Difficulty Hearing? No Information not available 01/01/2025 Sex: Unknown Functional Status Question Answer Note LastModified by One[employer] Details LastModified Time Do you use any [...] Time zoster recombinant 2 completed JENNIFER shannon [facility] 06/16/2024 17:38:13 zoster recombinant 3 completed JENNIFER shannon [facility] 06/16/2024 17:38:13 COVID-19, mRNA, LNP-S, PF, 30 mcg/0.3 mL dose 1 completed JENNIFER shannon [facility] 06/16/2024 17:38:13 COVID-19, mRNA, LNP-S, PF, 30 mcg/0.3 mL dose, roddy-sucrose 2 completed JENNIFER shannon [facility] 06/16/2024 17:38:13 Pneumococcal conjugate PCV20, polysaccharide NLA245 conjugate, adjuvant, PF 4 completed Ben Yi MD [address] [place] [address], [phone], [facility] 06/26/2024 15:25:09 Influenza, adjuvanted, trivalent, PF 4 completed Ben Yi MD [address] [place] [address], [address], [facility] 06/26/2024 15:25:09 Past Encounters Encounter ID Performer Location Encounter Start Date Encounter Closed Date Diagnosis/Indication Diagnosis SNOMED-CT Code Diagnosis ICD10 Code Diagnosis Note [id number] Ben Yi MD [facility] ([facility]) [address] [place] [phone] 10/05/2023 14:33:12 10/05/2023 16:56:53 Psoriasis 1256970 L40.9 Possibly psoriasis on her skin. Will treat with steroids. Follow-up if rash returns. Malignant lymphoma of extranodal AND/OR solid organ site 97092228 C85.99 Primary ma lignant neoplasm of female breast 11773333 C50.912 Hyperlipidemia 92514588 E78.5 Spinal jacinto nosis of lumbar region 73305278 M48.062 Essential hypertension 82801558 I10 Patient had elevation of her blood pressure but it is improved today. The patient is not checking it at home, so encouraged her to do so. Follow-up if continued elevations of blood pressure are noted. Encouraged patient to make routine follow-ups . Follow-up in 3 months. [id number] Ben Yi MD [facility] ([facility]) [address] [place] [id number] 11/25/2023 11:30:27 11/28/2023 20:27:06 Cellulitis 351572805 L03.90 Concerned about infection developing in the wound. Will start antibiotic s. Discussed wound care with patient. Follow-up with PCP if symptoms do not improve or worsen. [id number] Ben Yi MD [facility] ([facility]) [address] [place] [phone] 5 02/03/2024 10:35:25 02/03/2024 11:23:03 Dog bite of hand 884822768 S61.451A Does takePatien t reports that the [...] symptoms change or wound does not improving. [id number] Ben iY MD [facility] ([facility]) [address] [place] [phone] 5 02/07/2024 11:23:21 02/07/2024 12:01:27 Dog bite of hand 380525938 S61.451A Concerned that the infection is contributi ng to the patient's pain. The wound itself does not look infected. Mended applying wet-to-dry dressings and this was demonstrat ed to the patient. Complete course of antibiotic s. Will follow-up in 1 week. [id number] MANN JOSE [facility] ([facility]) [address] [place] [phone] 5 02/11/2024 14:49:21 02/11/2024 16:05:32 Dog bite of hand 292846468 S61.451D Discussed to continue washing with soap and water daily. Keep area covered when outside. May open to air when inside. Return for wound check if you develop redness, purulent drainage, increased pain, or concerns arise. [id number] Ben Yi MD [facility] ([facility]) [address] [place] [id number] 5 03/24/2024 14:25:37 03/24/2024 15:10:10 Essential hypertension 13224236 I10 Reviewed pressure log. She has labile [...] months or sooner if there are issues. [id number] Ben Yi MD [facility] ([facility]) [address] [place] [phone] 5 06/26/2024 11:35:08 06/26/2024 12:44:53 Essential hypertension 43815624 I10 Continue amlodipine . Continue monitoring blood pressure at home. Active or passive immunization 987310731 Z23 The patient is agreeable for flu shot today. The patient never got her second pneumonia shot so we will do a Prevnar 20 today. Chronic constipation 236 841315 K59.09 stable Bilateral stenosis of carotid arteries 763733599 I65.23 no sx Malignant tumor of breast 670560789 C50.919 follows with oncology [id number] Ben Yi MD [facility] ([facility]) [address] [place] [phone] 5 10/02/2024 11:06:46 10/02/2024 11:42:05 Foot pain 19306085 M79.672 Given the patient's concerns and the state of her foot, podiatry referral would be warranted. Patient was agreeable with this plan. Cheko toe 036895903 M20 .42 [id number] Ben Yi MD [facility] ([facility]) [address] [place] [phone] 5 01/01/2025 10:44:30 01/01/2025 11:21:10 Essential hypertension 75023520 I10 Given the elevations in blood pressure I do recommend that we restart blood pressure medication s. With amlodipine to 2.5 mg that she was tolerating this medication previously . Degenerati on of lumbar intervertebral disc 18021328 M51.369 Patient denies any significan t back pain or pain concerns today. Hyperlipidemia 83347931 E78.5 Bilateral stenosis of carotid arteries 604950723 I65.23 no sx Chronic bronchiolitis 73 5822142 J44.9 Chronic constipation 236 564973 K59.09 stable Gastroesop hageal reflux disease 176812572 K21.9 History of fall 55112043 9 Z91.81 Frail elderly 839867217 R54 Need for [facility] care assistance [id number] 5377691 Z74.1 Health Concerns Section Related Observation LastModified by Organization Detai ls LastModified Time None Recorded Concern Status LastModified by Organization Details LastModified Time None Recorded Advance Directives Directive None Recorded Payers Insurance Date Sequence Insurance Name Policy Number Policy Lee Covered Member ID Lee Member ID Guarantor Name 01/01/2025 1 [place] [id number] Jenna Nye [id number] Jenna Nye 01/01/2025 1 [place]/A DVANTAGE - PPO) [id number] Jenna Nye [id number] Jenna Nye Notes Date Note Type [...] for a wound check. Pt states it's mangle tender. Has been keeping it clean and covered with a band aid. MANN JOSE [address] [place], [address], [facility], LDonavanLJimi. 02/11/2024 16:19:27 03/24/2024 text/html This is a 78-yea r-old female that comes in today to discuss blood pressure. Patient states that she has been having some elevated blood pressure readings. Patient brings a log of her blood pressure readings with her today. No other concerns today. Ben Yi MD [address] [place] [address], [phone], [facility], LDonavanLDonavanC. 03/26/2024 08:08:06 06/26/2024 text/html [...] medication without any issues. Ben Yi MD [address] [place] [address], [phone], [facility], LDonavanLDonavanC. 06/26/2024 15:32:14 10/02/2024 text/html This is an 79-ye ar-old female comes in today with left foot pain. The patient has a callus on the bottom of her left foot that has been hurting and bothering her. Also has calluses on the tips of her toes of the same foot. Ben Yi MD [address] [place] [address], [phone], [facility] 10/03/2024 13:29:17 01/01/2025 text/html [...] denies any concerns today. Ben Yi MD [address] [place] [address], [phone], [facility] [facility] 01/01/2025 12:21:23 OBGyn Episode No OBEpisode recorded.
[2025-05-17 10:47] VITALS: BP 176/85; PULSE 62; RESP 16; O2SAT 98
--- NOTE | 2025-05-17 10:47 | ED_ITS ---
HPI - Extremity Problem General: Chief complaint: Extremity Injury, Lower Stated complaint: lower right back/hip area pain Time Seen by Provider: 05/17/25 10:41 History of Present Illness: 79-year-old female presents emergency ro om complaining of right-sided lower back pain no precipitating injuries. She denies any dysuria denies frequency. No radiation of pain into her lower extremities no fecal incontinence or urinary retention. Associated symptoms: Deny chest pain, fever(s) or rash Related Data Home Medications ?Medication ?Instructions ?Recorded ?Confirmed bismuth subsalicylate 262 mg/15 mL 262 mg PO DAILY PRN Diarrhea 01/18/24 10/17/24 oral suspension (Pepto-Bismol) brimonidine 0.1 % eye drops 1 drp ophthalmic (eye) BID 01/18/24 10/17/24 (Alphagan P) magnesium hydroxide 400 mg/5 mL 30 ml PO QPM PRN Const ipation 01/18/24 10/17/24 oral suspension (Milk of Magnesia) sennosides 25 mg tablet (Ex-Lax 25 mg PO DAILY PRN Con stipation 01/18/24 10/17/24 Maximum Strength) sodium phosphates 19 gram-7 118 ml OH DAILY PRN Consti pation 01/18/24 10/17/24 gram/118 mL enema (Fleet Enema) amlodipine 2.5 mg tablet 2.5 mg PO DAILY 05/26/24 Previous Rx's ?Medication ?Instructions ?Recorded magnesium citrate (Citrate of 60 ml PO BID #296 mL 10/25 Magnesia oral) diclofenac sodium 75 mg 75 mg PO Q12H PRN pain #20 t abs 05/17/25 tablet,delayed release Allergies Allergy/AdvReac Type Severity Reaction Status Date / Time adhesive tape Allergy ALGY-Rash Verified 10/17/24 11:01 Influenza Virus Vaccines Allergy ALGY-Rash Verified 10/17/24 11:01 Review of Systems Const: Denies: fever(s) or chills Card: Denies: chest pain Resp: Denies: dyspnea GI: Denies: abdominal pain : Denies: dysuria, urinary frequency or urinary urgency Musc: Denies: neck pain or back pain Skin/Breast: Denies: rash PFSH ED PFSH: Medical History GERD (gastroesophageal reflux disease) Bilateral carotid artery stenosis without cerebral infarction Closed head injury Hyperlipidemia 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 disc disorder 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 region Lumbar stenosis without neurogenic claudication Stenosis of cervical spine with myelopathy 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 Pain management contract signed HX: breast cancer ER OH negative, 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 status post radiation therapy and hormonal therapy, currently on Femara Stroke (cerebrum) Hx of stroke in February 07, 2019 Spondylolisthesis of cervical region Cervical disc disorder with myelopathy of mid-cervical region Chronic bronchitis Surgical History Status post carotid endarterectomy History of left breast biopsy Port-A-Cath in place 04/16/20 History of cholecystectomy History of hysterectomy / BSO / appendectomy H/O total hip arthroplasty Right Social History Smoking and tobacco/nicotine status: never used tobacco/nicotine Alcohol intake: never Substance/Drug Use: never Lives independently: Yes Household members: spouse Marital status: Current occupational status: retired Physical Exam Const: COMMON NORMALS: no acute distress GENERAL APPEARANCE: cooperative and comfortable ORIENTATION/CONSCIOUSNESS: Yes awake, Yes oriented to person, Yes oriented to place and Yes oriented to time HENMT: COMMON NORMALS: normocephalic, atraumatic and hearing grossly normal bilaterally HEAD & SCALP: normocephalic and atraumatic Resp: COMMON NORMALS: normal respiratory effort, No retractions, No use of accessory muscles and clear to auscultation bilaterally AUSCULTATION: clear to auscultation bilaterally Cardio: COMMON NORMALS: regular rate, regular rhythm and No murmurs present (Cardio) RATE: regular rate RHYTHM: regular rhythm GI: COMMON NORMALS: Soft to palpation and No hepatosplenomegaly present AUSCULTATION: Yes normoactive bowel sounds PALPATION: Yes Soft to palpation, No Tenderness to palpation present (GI), No Guarding due to palpation present (GI) and Yes No hepatosplenomegaly present Extremity: COMMON NORMALS: normal to inspection, capillary refill normal, no clubbing, cyanosis or edema, no calf tenderness and no pedal edema OTHER: Examination of the right hip patient has tenderness above and posterior to the posterior iliac crest. Examination of the hip itself can flex at the hip internally externally rotate without exhibiting any pain. Neurovascular the lower extremity is otherwise intact. Neuro: SENSORIUM/ORIENTATION: Yes oriented to person, Yes oriented to place and Yes oriented to time Skin: COMMON NORMALS: no rashes or lesions noted GENERAL SKIN EXAM: no rashes or lesions noted Course Vital Signs: Vital signs: Vital Signs Temperature 97.8 F 05/17/25 09:42 Pulse Rate 63 05/17/25 11:49 Respiratory Rate 18 05/17/25 11:49 Blood Pressure 152/76 05/17/25 11:49 Pulse Oximetry 97 05/17/25 11:49 Oxygen Delivery Me thod Room Air 05/17/25 11:49 MDM - Extremity (Nontraumatic) Medical Decision Making X-ray of the hip shows arthroplasty in good position. Patient states she has improvement with the Toradol she has this happened fairly frequently cannot recall any precipitating injury have her follow-up with her primary care as needed. Lab Data Radiology Impressions Hip/Pelvis X-Ray 05/17/25 09:58 IMPRESSION: Stable total left hip arthroplasty with no acute abnormality. All radiology interpretation(s) finalized by discharge Discharge Plan Discharge Patient Disposition: Home Clinical Impression: Pain in left lumbar region of back Condition: Stable Prescriptions: New diclofenac sodium 75 mg tablet,delayed release (DR/EC) 75 mg PO Q12H PRN (Reason: pain) Qty: 20 0RF No Action amlodipine 2.5 mg tablet 2.5 mg PO DAILY magnesium hydroxide [Milk of Magnesia] 400 mg/5 mL Suspension 30 ml PO QPM PRN (Reason: Constipation) bismuth subsalicylate [Pepto-Bismol] 262 mg/15 mL Suspension 262 mg PO DAILY PRN (Reason: Diarrhea) Fleet Enema 19-7 gram/118 mL Enema 118 ml OH DAILY PRN (Reason: Constipation) Ex-Lax Maximum Strength 25 mg Tablet 25 mg PO DAILY PRN (Reason: Constipation) brimonidine [Alphagan P] 0.1 % drops 1 drp ophthalmic (eye) BID magnesium citrate [Citrate of Magnesia] Solution 60 ml PO BID Qty: 296 0RF Discharge Orders: Discharge ED (Routine); Ordered 05/17/25 Ordered By: Parmjit Ovalle Referrals: Jackson Yi MD [Primary Care Provider, Family Practice] Discharge Diet: Usual diet Discharge Activity: Increase activity as tolerated Patient Instructions: Low Back Strain (ED), Lower Back Exercises (ED), Opioid Safety, Pain Management, Patient Portal & [facility] Instructions Activity Restrictions/Additional Instructions: Thank you for choosing [facility] for your healthcare needs today. It is very important that you follow up as instructed or that you return to the Emergency Department should you have concerns or if your condition changes or worsens in any way. Print Language: Bulgarian Coding Level of Care Code ED Customer Service Advocate for Hardy Enriquez
[2025-05-17 11:49] VITALS: BP 152/76; PULSE 63; RESP 18; O2SAT 97
== END 2025-05-17 11:54 | disposition home or self-care (01) ==
PROVIDERS: Emergency Provider Family Medicine; PCP Family Medicine
DX: M54.50 Low back pain, unspecified (principal); Z96.642 Presence of left artificial hip joint
CPT/HCPCS: 73502; 96374; 99284; J1885

== ENCOUNTER 2025-06-13 02:29 | Emergency (ER) | payer MEDICARE, SELFPAY ==
[2025-06-13 02:38] VITALS: BP 135/76; PULSE 58; RESP 16; TEMP 36.4; O2SAT 98; BMI 21.9
--- NOTE | 2025-06-13 03:00 | PC.NURSE ---
this nurse was triaging patient, at the end of triage I stated we will get you back to a room as soon as we have one open . Pt stated I just want to go home, I feel better . Pt son agreed with pt to go home, pt LWBS.
--- OUTSIDE RECORDS SUMMARY | 2025-06-13 18:32 | XMS_ITS | Clinical Summary ---
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
--- OUTSIDE RECORDS SUMMARY | 2025-06-13 18:32 | XMS_ITS | Clinical Summary ---
Author Organization [facility] Address [address] [place] [address] Phone Care Team Providers Care Soft Boarder Name Role Phone Unavailable Primary Care Provider [...] 2018 INFLUENZA VACCINE (#1) [address] [place] [id number] [facility]
--- OUTSIDE RECORDS SUMMARY | 2025-06-13 18:32 | XMS_ITS | Encounter Summary ---
Author Organization [facility] Address [address] [place] [address] Care Team Providers Care Caster Operator Name Role Phone Unavailable Primary Care Provider Unavailabl e Encounter Details Date Type Department Care Team (Late st Contact Info) Description 10/16/2020 Ancillary Orders [facility] Pre-Registration [place] CALL TO MAKE APPOINTMENT ONLY [address] [place] [address] Carl Thompson MD [address] [place] [address] Non-Hodgkin lymphoma, unspecified, extranodal and solid organ sites (CMS/HCC); Malignant neoplasm of upper-outer quadrant of left female breast (CMS/HCC); Estrogen receptor positive status (ER+); 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
--- OUTSIDE RECORDS SUMMARY | 2025-06-13 18:32 | XMS_ITS | Encounter Summary ---
Author Organization [facility] Address [address] [place] [address] Care Team Providers Care Digital Communications Manager Name Role Phone Unavailable Primary Care Provider Unavailabl e Reason for Referral * PET Scan (Urgent) - Closed Specialty Diagnoses / Procedures Referred By Deborah rasheed Referred To Contact Radiology Diagnoses Lymphoma, non-Hodgkin's (CMS/HCC) Procedures PET TUMOR IMG W CT SKL BSE MID THG Deana Barahona FNP [address] [place] [address] Phone: tel: fax: [facility] Nuclear Medicine [address] [place] [phone] Phone: tel: fax: Referral ID Status Reason Start Date Expiration Date V isits Requested Visits Authorized [id number] Closed [facility] [place] [place] CTS to Schedule 08/12/2020 10/10/2020 1 1 Encounter Details Date Type Department Care Team (Late st Contact Info) Description 06/27/2020 Ancillary Orders [facility] Pre-Registration [place] CALL TO MAKE APPOINTMENT ONLY [address] [place] [address] Deana Barahona FNP [address] [place] [address] Lymphoma, non-Hodgkin's (CMS/HCC) Social History [...] Accreditation of Nuclear Medicine Laboratories (IAC Nuclear/PET). [id number] Narrative 08/15/2020 5:53 PM CDT Radionuclide PET Metabolic Tumor Imaging with CT Attenuation Correction and Anatomic Localization from Skull Base to Mid Thigh: Radiopharmaceutical: A-42-Oobwykybreyajgldxg Dose: 13.9 mCi right AC IV Time of Injection: 14:40 hrs Clinical Indication: Initial treatment strategy to evaluate non-Hodgkin lymphoma. FDG (J-60-Gvpzodtmvrbjpfkqxw) PET imaging was performed at 15:40 hrs [...] from Skull Base to Mid Thigh: Radiopharmaceutical: M-12-Nnjxplohqexgfdktry Dose: 13.9 mCi right AC IV Time of Injection: 14:40 hrs Clinical Indication: Initial treatment strategy to evaluate non-Hodgkin lymphoma. FDG (I-99-Iathmjcjmpnmeirowm) PET imaging was performed at 15:40 hrs [...] Accreditation of Nuclear Medicine Laboratories (IAC Nuclear/PET). [id number] Deana Barahona [facility] PE ORDERABLES Final Result documented in this encounter Visit Diagnoses Diagnosis Lymphoma, non-Hodgkin's (CMS/HCC) Lymphosarcoma, unspecified site, extranodal and solid organ sites Lymphoma, non-Hodgkin's (CMS/HCC) Lymphosarcoma, unspecified site, extranodal and solid organ sites documented in this encounter
== END 2025-06-13 03:02 | disposition left against medical advice (07) ==
LOC: ER 02:33
PROVIDERS: Emergency Provider Family Medicine; PCP Family Medicine
DX: Z01.89 Encounter for other specified special examinations (principal); Z53.21 Procedure and treatment not carried out due to patient leaving prior to being seen by health care provider
CPT/HCPCS: 36416; 82962

== ENCOUNTER 2025-06-14 18:20 | Emergency (ER) | payer MEDICARE, SELFPAY ==
[2025-06-14 18:25] VITALS: BP 176/80; PULSE 65; RESP 16; TEMP 36.6; O2SAT 97; BMI 23.4
--- OUTSIDE RECORDS SUMMARY | 2025-06-14 18:29 | XMS_ITS | Clinical Summary ---
Author Organization [facility] Address [address] [place] [address] Phone Care Team Providers Care Cut Pressman Name Role Phone Unavailable Primary Care Provider [...] 2018 INFLUENZA VACCINE (#1) [address] [place] [id number] [facility]
--- OUTSIDE RECORDS SUMMARY | 2025-06-14 18:29 | XMS_ITS | Encounter Summary ---
Author Organization [facility] Address [address] [place] [address] Care Team Providers Care Head Concierge Name Role Phone Unavailable Primary Care Provider Unavailabl e Reason for Referral * PET Scan (Urgent) - Closed Specialty Diagnoses / Procedures Referred By Deborah rasheed Referred To Contact Radiology Diagnoses Lymphoma, non-Hodgkin's (CMS/HCC) Procedures PET TUMOR IMG W CT SKL BSE MID THG Deana Barahona FNP [address] [place] [address] Phone: tel: fax: [facility] Nuclear Medicine [address] [place] [phone] Phone: tel: fax: Referral ID Status Reason Start Date Expiration Date V isits Requested Visits Authorized [id number] Closed [facility] CTS to Schedule 08/12/2020 10/10/2020 1 1 Encounter Details Date Type Department Care Team (Late st Contact Info) Description 06/27/2020 Ancillary Orders [place] [facility] Pre-Registration [place] CALL TO MAKE APPOINTMENT ONLY [address] [place] [address] Deana Barahona FNP [address] [place] [address] Lymphoma, non-Hodgkin's (CMS/HCC) Social History [...] Accreditation of Nuclear Medicine Laboratories (IAC Nuclear/PET). [id number] Narrative 08/15/2020 5:53 PM CDT Radionuclide PET Metabolic Tumor Imaging with CT Attenuation Correction and Anatomic Localization from Skull Base to Mid Thigh: Radiopharmaceutical: E-02-Dpcnspivzpmetbqiuz Dose: 13.9 mCi right AC IV Time of Injection: 14:40 hrs Clinical Indication: Initial treatment strategy to evaluate non-Hodgkin lymphoma. FDG (F-22-Mzavgatzymulfusfkt) PET imaging was performed at 15:40 hrs [...] max SUV of 3.07. No suspicious abdominal/pelvic lvaelle uptake. The spleen is not enlarged or hypermetabolic. Mild left colon diverticulosis is noted without evidence of diverticulitis. Musculoskeletal: No suspicious focal uptake. Procedure Note Bill Dempsey MD - 08/15/2020 Radionuclide PET Metabolic Tumor Imaging with CT Attenuation Correction and Anatomic Localization from Skull Base to Mid Thigh: Radiopharmaceutical: W-71-Tzhdwmqfrozyrvqhic Dose: 13.9 mCi right AC IV Time of Injection: 14:40 hrs Clinical Indication: Initial treatment strategy to evaluate non-Hodgkin lymphoma. FDG (G-27-Lbknnzjeuhsbztjooi) PET imaging was performed at 15:40 hrs [...] Accreditation of Nuclear Medicine Laboratories (IAC Nuclear/PET). [id number] Deana Barahona [facility] PE ORDERABLES Final Result documented in this encounter Visit Diagnoses Diagnosis Lymphoma, non-Hodgkin's (CMS/HCC) Lymphosarcoma, unspecified site, extranodal and solid organ sites Lymphoma, non-Hodgkin's (CMS/HCC) Lymphosarcoma, unspecified site, extranodal and solid organ sites documented in this encounter
--- OUTSIDE RECORDS SUMMARY | 2025-06-14 18:29 | XMS_ITS | Encounter Summary ---
Author Organization [facility] Address [address] [place] [address] Care Team Providers Care Gsa Coordinator Name Role Phone Unavailable Primary Care Provider Unavailabl e Encounter Details Date Type Department Care Team (Late st Contact Info) Description 10/16/2020 Ancillary Orders [facility] Pre-Registration [place] CALL TO MAKE APPOINTMENT ONLY [address] [place] [address] Carl Thompson MD [address] [place] [address] Non-Hodgkin lymphoma, unspecified, extranodal and solid organ sites (CMS/HCC); Malignant neoplasm of upper-outer quadrant of left female breast (CMS/HCC); Estrogen receptor positive status (ER+); 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
--- OUTSIDE RECORDS SUMMARY | 2025-06-14 18:29 | XMS_ITS | Clinical Summary ---
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
--- NOTE | 2025-06-14 19:04 | XRR_ITS ---
PROCEDURE INFORMATION: Exam: XR Right Elbow Exam date and time: 06/14/2025 7:17 PM Age: 79 years old Clinical indication: Injury or trauma; Fall; Blunt trauma (contusions or hematomas); Elbow; Right; Additional info: Fall x1 week TECHNIQUE: Imaging protocol: Radiologic exam of the right elbow. Views: 3 or more views. COMPARISON: No relevant prior studies available. FINDINGS: Bones/joints: No acute fracture or dislocation of the right elbow. Soft tissues: Unremarkable soft tissues. No joint effusion. XR/XR elbow RT min 3V* [id number] IMPRESSION: No acute fracture or dislocation of the right elbow.
[2025-06-14] MEDS: HYDROcodone-acetaminophen 5-325 mg Tablet 1 TAB PO (19:23)
--- NOTE | 2025-06-15 00:59 | W.ED.FALL ---
HPI - Fall General: Chief Complaint: Fall Stated Complaint: pain in right arm fall last week Time Seen by Provider: 06/14/25 18:43 Source: patient Mode of arrival: ambulatory Limitations: no limitations History of Present Illness: Patient is an 79-year-old female who presents the emergency department complaining of right elbow pain. Initially patient cannot remember why she came to the ER, she reported to triage that her back was bothering her though later clarified and said that her right forearm is bothering her, where she recently had a fall and skin tear to the area. Son is present, stating the patient has dementia and she is at baseline. There has been no new injury since her fall last week.Patient has no other concerns at this time, vitals are stable. MD complaint: other (Right arm pain status post fall 1 week ago) Onset (ago): week(s) (1) Associated symptoms-after fall: Denies abdominal pain, chest pain, headache(s) or neck pain Related Data Home Medications ?Medication ?Instructions ?Recorded ?Confirmed bismuth subsalicylate 262 mg/15 mL 262 mg PO DAILY PRN Diarrhea 01/18/24 10/17/24 oral suspension (Pepto-Bismol) brimonidine 0.1 % eye drops 1 drp ophthalmic (eye) BID 01/18/24 10/17/24 (Alphagan P) magnesium hydroxide 400 mg/5 mL 30 ml PO QPM PRN Constipation 01/18/24 10/17/24 oral suspension (Milk of Magnesia) sennosides 25 mg tablet (Ex-Lax 25 mg PO DAILY PRN Constipation 01/18/24 10/17/24 Maximum Strength) sodium phosphates 19 gram-7 118 ml MO DAILY PRN Constipation 01/18/24 10/17/24 gram/118 mL enema (Fleet Enema) amlodipine 2.5 mg tablet 2.5 mg PO DAILY 05/26/24 10/17/24 Previous Rx's ?Medication ?Instructions ?Recorded magnesium citrate (Citrate of 60 ml PO BID #296 mL 05/12/25 Magnesia oral) diclofenac sodium 75 mg 75 mg PO Q12H PRN pain #20 tabs 05/17/25 tablet,delayed release Allergies Allergy/AdvReac Type Severity Reaction Status Date / Time adhesive tape Allergy ALGY-Rash Verified 06/14/25 18:29 Influenza Virus Vaccines Allergy ALGY-Rash Verified 06/14/25 18:29 Review of Systems General: Reports: 10 or more systems reviewed and unremarkable except in HPI and below Const: Denies: fever(s) or chills Card: Denies: chest pain Resp: Denies: dyspnea or productive cough GI: Denies: abdominal pain, nausea, vomiting or diarrhea : Denies: flank pain Musc: Reports: extremity pain (RUE); Denies: neck pain, back pain, extremity swelling, joint pain, joint swelling, joint redness, joint warmth, limited range of motion or muscle weakness Skin/Breast: Denies: rash Neuro: Denies: headache(s), numbness in extremities or weakness in extremities PFSH ED PFSH: Medical History GERD (gastroesophageal reflux disease) Bilateral carotid artery stenosis without cerebral infarction Closed head injury Hyperlipidemia 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 disc disorder 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 region Lumbar stenosis without neurogenic claudication Stenosis of cervical spine with myelopathy 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 Pain management contract signed HX: breast cancer [place] negative, 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 status post radiation therapy and hormonal therapy, currently on Femara Stroke (cerebrum) Hx of stroke in February 07, 2019 Spondylolisthesis of cervical region Cervical disc disorder with myelopathy of mid-cervical region Chronic bronchitis Surgical History Status post carotid endarterectomy History of left breast biopsy Port-A-Cath in place 04/16/20 History of cholecystectomy History of hysterectomy / BSO / appendectomy H/O total hip arthroplasty Right Social History Smoking and tobacco/nicotine status: never used tobacco/nicotine Alcohol intake: never Substance/Drug Use: never Lives independently: Yes Household members: spouse Marital status: Current occupational status: retired Physical Exam Const: COMMON NORMALS: no acute distress, average body habitus, no limitations, healthy appearing and alert ORIENTATION/CONSCIOUSNESS: Yes awake HENMT: COMMON NORMALS: normocephalic and atraumatic HEAD & SCALP: normocephalic and atraumatic Eye: COMMON NORMALS: Equal, round and reactive pupils present and EOMs intact bilaterally PUPIL: Yes Equal, round and reactive pupils present Neck/C-Spine: COMMON NORMALS: full ROM Resp: COMMON NORMALS: normal respiratory effort, No retractions, No use of accessory muscles and clear to auscultation bilaterally AUSCULTATION: clear to auscultation bilaterally Cardio: COMMON NORMALS: regular rate and regular rhythm RATE: regular rate RHYTHM: regular rhythm Back/Pelvis: COMMON NORMALS: thoracic and lumbar spine normal to inspection, no thoracic nor lumbar tenderness and thoraco-lumbar ROM normal Extremity: NARRATIVE EXTREMITY EXAM: Skin tear to right arm, wrapped in bandage. There is minimal tenderness to palpation surrounding this area, though full range of motion at the elbow and wrist on the right upper extremity. Distal neurovascular exam is normal. Neuro: COMMON NORMALS: moves all extremities, no focal motor deficits and no sensory deficits noted SENSORIUM/ORIENTATION: Yes alert GAIT: Yes Normal gait present Course Vital Signs: Vital signs: Vital Signs Temperature 97.8 F 06/14/25 18:25 Pulse Rate 65 06/14/25 18:25 Respiratory Rate 16 06/14/25 18:25 Blood Pressure 176/80 06/14/25 18:25 Pulse Oximetry 97 06/14/25 18:25 Oxygen Delivery Me thod Room Air 06/14/25 18:25 MDM - Fall Medical Decision Making Patient fell a week ago, had skin tear to right elbow and now is reporting pain. On exam appears that she has good amount of skin tenderness related to the skin tear, which is delayed healing and I did instruct patient and son on proper ways to allow this to heal, it appeared to be too moist underneath the bandage. There is no significant signs of cellulitis however, an x-ray was negative for any acute fracture or dislocation. Her neurovascular exam was normal and overall this can be treated conservatively at home with better wound care. Discharged home at this time. Lab Data Radiology Impressions Elbow X-Ray 06/14/25 19:04 IMPRESSION: No acute fracture or dislocation of the right elbow. All radiology interpretation(s) finalized by discharge Discharge Plan Discharge Patient Disposition: Home Clinical Impression: Contusion of elbow, right Condition: Stable Prescriptions: No Action amlodipine 2.5 mg tablet 2.5 mg PO DAILY magnesium hydroxide [Milk of Magnesia] 400 mg/5 mL Suspension 30 ml PO QPM PRN (Reason: Constipation) bismuth subsalicylate [Pepto-Bismol] 262 mg/15 mL Suspension 262 mg PO DAILY PRN (Reason: Diarrhea) Fleet Enema 19-7 gram/118 mL Enema 118 ml MO DAILY PRN (Reason: Constipation) Ex-Lax Maximum Strength 25 mg Tablet 25 mg PO DAILY PRN (Reason: Constipation) brimonidine [Alphagan P] 0.1 % drops 1 drp ophthalmic (eye) BID magnesium citrate [Citrate of Magnesia] Solution 60 ml PO BID Qty: 296 0RF diclofenac sodium 75 mg tablet,delayed release (DR/EC) 75 mg PO Q12H PRN (Reason: pain) Qty: 20 0RF Discharge Orders: Discharge ED (Routine); Ordered 06/14/25 Ordered By: Mychal Vyas Referrals: Jackson Yi MD [Primary Care Provider, [facility]] Patient Instructions: Patient Portal & [facility] Instructions Activity Restrictions/Additional Instructions: Elbow Contusion Discharge Diagnosis: 79-year-old female with right elbow contusion and associated skin tear, sustained from a fall one week ago. Wound Care for Skin Tear: - Continue gentle wound care to minimize further trauma and promote optimal healing. Clean the area with saline or mild soap and water, pat dry, and apply a non-adherent dressing. Change the dressing as needed, typically every 1?3 days, or sooner if soiled. Avoid adhesive tapes directly on fragile skin. Monitor for signs of infection (increased redness, warmth, swelling, purulent drainage). - Maintain a moist wound environment to facilitate healing and reduce infection risk. If the skin flap is viable, gently reposition it over the wound before dressing. Pain Management: - For mild to moderate pain, acetaminophen or NSAIDs are recommended as first-line agents, unless contraindicated. NSAIDs should be used at the lowest effective dose and for the shortest duration necessary, given age-related risks. - Opioids are not recommended except for brief use in cases of severe pain not controlled by other measures. Activity and Mobilization: - Early gentle mobilization is encouraged to prevent joint stiffness and promote recovery. Avoid prolonged immobilization, as this may lead to poorer outcomes. - Gradually resume activities as tolerated, avoiding high-force or repetitive movements that may aggravate the injury. - If significant pain or swelling persists, limit activity and consider short-term use of a sling for comfort, but avoid prolonged immobilization. Elevation and Swelling Control: - Elevate the affected arm above heart level when possible to reduce swelling. - Apply ice packs (wrapped in a cloth) for 15?20 minutes every 2?3 hours during the first 48 hours if swelling is present, unless contraindicated. Return Precautions: - Seek prompt medical attention for any of the following: - Increasing pain, swelling, or redness - Signs of infection (fever, purulent drainage, spreading erythema) - New numbness, tingling, or weakness in the hand or arm - Inability to move the elbow or worsening range of motion - Bleeding that does not stop with gentle pressure Follow-Up: - Routine follow-up is recommended within 1?2 weeks to assess healing and recovery, or sooner if symptoms worsen. Additional Considerations: - Assess for psychosocial or nonphysical factors that may delay recovery, and address as appropriate. - Consider ergonomic modifications to daily activities to reduce risk of further injury. Summary: This management plan is consistent with consensus guidelines from the [employer] and current evidence-based wound care practices for elderly patients with skin tears and elbow contusions. Print Language: Chinese Coding Level of Care Code ED Service Mechanic for Hardy Enriquez
== END 2025-06-14 20:54 | disposition home or self-care (01) ==
PROVIDERS: Emergency Provider Physician Assistant; PCP Family Medicine
DX: S50.01XA Contusion of right elbow, initial encounter (principal); E78.5 Hyperlipidemia, unspecified; Z85.3 Personal history of malignant neoplasm of breast; W19.XXXA Unspecified fall, initial encounter; Z86.73 Personal history of transient ischemic attack (TIA), and cerebral infarction without residual deficits
CPT/HCPCS: 73080; 99283; J9999

== ENCOUNTER 2025-06-15 17:57 | Emergency (ER) | payer MEDICARE, SELFPAY ==
--- OUTSIDE RECORDS SUMMARY | 2025-06-15 18:02 | XMS_ITS | Encounter Summary ---
Author Organization [facility] Address [address] [place] [address] Care Team Providers Care Mud Analysis Operator Name Role Phone Unavailable Primary Care Provider Unavailabl e Reason for Referral * PET Scan (Urgent) - Closed Specialty Diagnoses / Procedures Referred By Deborah rasheed Referred To Contact Radiology Diagnoses Lymphoma, non-Hodgkin's (CMS/HCC) Procedures PET TUMOR IMG W CT SKL BSE MID THG Deana Barahona FNP [address] [place] [address] Phone: tel: fax: [facility] Nuclear Medicine [address] [place] [id number] Phone: tel: fax: Referral ID Status Reason Start Date Expiration Date V isits Requested Visits Authorized [id number] Closed [facility] to Schedule 08/12/2020 10/10/2020 1 1 Encounter Details Date Type Department Care Team (Late st Contact Info) Description 06/27/2020 Ancillary Orders [facility] Pre-Registration [facility] CALL TO MAKE APPOINTMENT ONLY [address] [place] [address] Deana Barahona FNP [address] [place] [address] Lymphoma, non-Hodgkin's (CMS/HCC) Social History [...] Accreditation of Nuclear Medicine Laboratories (IAC Nuclear/PET). [id number] Narrative 08/15/2020 5:53 PM CDT Radionuclide PET Metabolic Tumor Imaging with CT Attenuation Correction and Anatomic Localization from Skull Base to Mid Thigh: Radiopharmaceutical: [id number] Dose: 13.9 mCi right AC IV Time of Injection: 14:40 hrs Clinical Indication: Initial treatment strategy to evaluate non-Hodgkin lymphoma. FDG (A-[id number]) PET imaging was performed at 15:40 hrs [...] from Skull Base to Mid Thigh: Radiopharmaceutical: [id number]-[id number] Dose: 13.9 mCi right AC IV Time of Injection: 14:40 hrs Clinical Indication: Initial treatment strategy to evaluate non-Hodgkin lymphoma. FDG (H-54-Iriqmtpiugdqnswfqg) PET imaging was performed at 15:40 hrs [...] Accreditation of Nuclear Medicine Laboratories (IAC Nuclear/PET). [id number] Deana Barahona [facility] PE ORDERABLES Final Result documented in this encounter Visit Diagnoses Diagnosis Lymphoma, non-Hodgkin's (CMS/HCC) Lymphosarcoma, unspecified site, extranodal and solid organ sites Lymphoma, non-Hodgkin's (CMS/HCC) Lymphosarcoma, unspecified site, extranodal and solid organ sites documented in this encounter
--- OUTSIDE RECORDS SUMMARY | 2025-06-15 18:02 | XMS_ITS | Clinical Summary ---
Author Organization [facility] Address [address] [place] [address] Phone Care Team Providers Care Skid Road Man Name Role Phone Unavailable Primary Care Provider [...] series) 2018 INFLUENZA VACCINE (#1) [address] [place] [id number] [facility]
--- OUTSIDE RECORDS SUMMARY | 2025-06-15 18:02 | XMS_ITS | Clinical Summary ---
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
--- OUTSIDE RECORDS SUMMARY | 2025-06-15 18:02 | XMS_ITS | Encounter Summary ---
Author Organization [facility] Address [address] [place] [address] Care Team Providers Care Import Export Agent Name Role Phone Unavailable Primary Care Provider Unavailabl e Encounter Details Date Type Department Care Team (Late st Contact Info) Description 10/16/2020 Ancillary Orders 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
[2025-06-15 18:35] VITALS: BP 162/86; PULSE 89; RESP 16; TEMP 36.7; O2SAT 97
--- NOTE | 2025-06-15 19:08 | XRR_ITS ---
PROCEDURE INFORMATION: Exam: XR Lumbosacral Spine Exam date and time: 06/15/2025 7:37 PM Age: 79 years old Clinical indication: Low back pain; Additional info: Fall x1 week, pain TECHNIQUE: Imaging protocol: Radiologic exam of the lumbosacral spine. Views: 2 or 3 views. COMPARISON: CR XR hip RT 2-3V wo/w pel* [id number] 05/17/2025 10:34 AM FINDINGS: Bones/joints: Grade 1 retrolisthesis at L3-L4 and L4-L5 and grade 1 anterolisthesis at L5-S1. Moderate to advanced multilevel lumbar spondylosis with intervertebral disc space height loss and endplate degenerative changes. No definite acute fracture. Vertebral body heights are maintained. Soft tissues: Unremarkable. Organs: Cholecystectomy clips. Vasculature: Atherosclerotic aortic calcifications. XR/XR lumbar spine 2-3V* [id number] IMPRESSION: 1. No acute osseous findings. 2. Moderate to advanced multilevel lumbar spondylosis.
--- NOTE | 2025-06-15 19:11 | XRR_ITS ---
PROCEDURE INFORMATION: Exam: XR Right Ribs Exam date and time: 06/15/2025 7:31 PM Age: 79 years old Clinical indication: Chest wall pain; Right; Additional info: Fall x1 week TECHNIQUE: Imaging protocol: Radiologic exam of the right ribs. Views: 2 views. COMPARISON: CT chest abdpel w/*[id number] 09/01/2024 12:34 PM FINDINGS: Bones/joints: Moderate degenerative changes of the acromioclavicular and glenohumeral joints. Vasculature: Atherosclerotic aortic calcifications. Organs: Cholecystectomy clips. Soft tissues: Normal. XR/XR ribs RT 2V* [id number] IMPRESSION: No definite acute rib fracture.
[2025-06-15] MEDS: HYDROmorphone tab 2 MG TABLET PO (19:26)
[2025-06-15] MEDS: HYDROcodone-acetaminophen 5-325 mg Tablet 2 TAB PO (20:52)
--- NOTE | 2025-06-15 20:52 | ED_ITS ---
Documented by User: JOVAN Jeffers 06/15/25 20:57 HPI - General Adult General: Chief complaint: General Medical Stated complaint: R Arm and back Pain Time Seen by Provider: 06/15/25 18:40 Source: patient and family (son) Mode of arrival: ambulatory Limitations: no limitations History of Present Illness: Patient is an 79-year-old female who presents to the Emergency Department for the second time in 24 hours for right arm pain, as well as right lower back pain. Was seen yesterday, had normal x-ray and examination and discharged home in stable condition. She reports back since she is still having pain in the same area, no new injuries. The initial injury was a fall a week ago. She reports that the pain is mild, she is concerned that she did not get sent home with pain medications yesterday. No new complaints, no new weakness, no chest pain or shortness of breath, no urinary symptoms, no other symptoms at this time. She does have a history of dementia. Vitals are stable. MD complaint: Right elbow pain, right lower back pain Onset (ago): week(s) Associated symptoms: Deny chest pain, dyspnea, headache(s), nausea, rash or vomiting Related Data Home Medications ?Medication ?Instructions ?Recorded ?Confirmed bismuth subsalicylate 262 mg/15 mL 262 mg PO DAILY PRN Diarrhea 01/18/24 10/17/24 oral suspension (Pepto-Bismol) brimonidine 0.1 % eye drops 1 drp ophthalmic (eye) BID 01/18/24 10/17/24 (Alphagan P) magnesium hydroxide 400 mg/5 mL 30 ml PO QPM PRN Const ipation 01/18/24 10/17/24 oral suspension (Milk of Magnesia) sennosides 25 mg tablet (Ex-Lax 25 mg PO DAILY PRN Con stipation 01/18/24 10/17/24 Maximum Strength) sodium phosphates 19 gram-7 118 ml [place] DAILY PRN Consti pation 01/18/24 10/17/24 gram/118 mL enema (Fleet Enema) amlodipine 2.5 mg tablet 2.5 mg PO DAILY 05/26/24 Previous Rx's ?Medication ?Instructions ?Recorded magnesium citrate (Citrate of 60 ml PO BID #296 mL 10/25 Magnesia oral) diclofenac sodium 75 mg 75 mg PO Q12H PRN pain #20 t abs 05/17/25 tablet,delayed release Allergies Allergy/AdvReac Type Severity Reaction Status Date / Time adhesive tape Allergy ALGY-Rash Verified 06/14/25 18:29 Influenza Virus Vaccines Allergy ALGY-Rash Verified 06/14/25 18:29 Review of Systems General: Reports: 10 or more systems reviewed and unremarkable except in HPI and below Const: Denies: fever(s) or chills Card: Denies: chest pain Resp: Denies: dyspnea or productive cough GI: Denies: abdominal pain, nausea, vomiting or diarrhea : Denies: flank pain Musc: Reports: back pain and joint pain (Right elbow); Denies: neck pain, extremity pain, extremity swelling, joint swelling, joint redness, joint warmth, limited range of motion or muscle weakness Skin/Breast: Denies: rash Neuro: Denies: headache(s), numbness in extremities or weakness in extremities PFSH ED PFSH: Medical History GERD (gastroesophageal reflux disease) Bilateral carotid artery stenosis without cerebral infarction Closed head injury Hyperlipidemia 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 disc disorder 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 region Lumbar stenosis without neurogenic claudication Stenosis of cervical spine with myelopathy 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) use of opiate analgesic Pain management contract signed HX: breast cancer ER [place] negative, 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 status post radiation therapy and hormonal therapy, currently on Femara Stroke (cerebrum) Hx of stroke in February 07, 2019 Spondylolisthesis of cervical region Cervical disc disorder with myelopathy of mid-cervical region Chronic bronchitis Surgical History Status post carotid endarterectomy History of left breast biopsy Port-A-Cath in place 04/16/20 History of cholecystectomy History of hysterectomy / BSO / appendectomy H/O total hip arthroplasty Right Social History Smoking and tobacco/nicotine status: never used tobacco/nicotine Alcohol intake: never Substance/Drug Use: never Lives independently: Yes Household members: spouse Marital status: Current occupational status: retired Physical Exam Const: COMMON NORMALS: no acute distress, healthy appearing, alert and well nourished ORIENTATION/CONSCIOUSNESS: Yes oriented to person HENMT: COMMON NORMALS: normocephalic and atraumatic HEAD & SCALP: normocephalic and atraumatic Neck/C-Spine: COMMON NORMALS: full ROM, supple and no meningeal signs Resp: COMMON NORMALS: normal respiratory effort, No use of accessory muscles and clear to auscultation bilaterally AUSCULTATION: clear to auscultation bilaterally Cardio: COMMON NORMALS: regular rate and regular rhythm RATE: regular rate RHYTHM: regular rhythm Back/Pelvis: OTHER: No significant reproducible tenderness palpation to the back muscles or right lateral ribs. No step-off deformity. No signs of trauma. Full range of motion. Extremity: COMMON NORMALS: full ROM, capillary refill normal, no joint enlargement and no clubbing, cyanosis or edema NARRATIVE EXTREMITY EXAM: Skin tear right elbow, healing well and unchanged overall from yesterday. No significant reproducible tenderness palpation to the right arm. Distal neurovascular exam is intact. No change from previous exam yesterday. Neuro: COMMON NORMALS: moves all extremities, no focal motor deficits and no sensory deficits noted SENSORIUM/ORIENTATION: Yes alert and Yes oriented to person MENINGEAL SIGNS: Yes no meningeal signs Skin: COMMON NORMALS: no rashes or lesions noted GENERAL SKIN EXAM: no rashes or lesions noted Course Vital Signs: Vital signs: Vital Signs Temperature 98.1 F 06/15/25 18:35 Pulse Rate 89 06/15/25 18:35 Respiratory Rate 16 06/15/25 18:35 Blood Pressure 162/86 06/15/25 18:35 Pulse Oximetry 97 06/15/25 18:35 Oxygen Delivery Me thod Room Air 06/15/25 18:35 [facility] - General Adult Medical Decision Making Patient presented for the second time in 24 hours for continued pain to her right upper extremity. I question if this is related to patient's history of dementia, palpation of the right upper arm, where she is reporting still pain despite normal x-ray yesterday and normal exam yesterday, does not elicit any pain. She has full range of motion, full neurovascular status intact, and no new trauma since the initial fall a week ago. I have no concern for any DVT. In addition she has complaint today of right parathoracic/paralumbar back pain, that is nontender to palpation and does not appear to bother her when she is ambulating. Still did an x-ray of the right ribs and right lower back, I viewed these x-rays and do not see any obvious significant normalities and upon recheck of the patient's pain she states she feels without pain at this time and wants to go home to feed her animals. I informed her again of conservative measures at home to treat her conservative pain, that is still likely associated with the fall a week ago. She is encouraged to continue her wound care, and will be sent half dose of [place] to take before bed and strict precautions are given with this medication as well. This is to be used for breakthrough pain and if she has any more concerns to follow-up with primary care. Son and patient agree with this plan. Lab Data Radiology Impressions Lumbar Spine X-Ray 06/15/25 19:08 IMPRESSION: 1. No acute osseous findings. 2. Moderate to advanced multilevel lumbar spondylosis. Ribs X-Ray 06/15/25 19:11 IMPRESSION: No definite acute rib fracture. All radiology interpretation(s) finalized by discharge Discharge Plan Discharge Patient Disposition: Home Clinical Impression: Back pain Qualifiers: Back pain location: low back pain Chronicity: chronic Back pain laterality: right Sciatica presence: without sciatica Qualified Code(s): M54.50 - Low back pain, unspecified Contusion of elbow, right Qualifiers: Encounter type: initial encounter Qualified Code(s): S50.01XA - Contusion of right elbow, initial encounter Condition: Stable Prescriptions: No Action amlodipine 2.5 mg tablet 2.5 mg PO DAILY magnesium hydroxide [Milk of Magnesia] 400 mg/5 mL Suspension 30 ml PO QPM PRN (Reason: Constipation) bismuth subsalicylate [Pepto-Bismol] 262 mg/15 mL Suspension 262 mg PO DAILY PRN (Reason: Diarrhea) Fleet Enema 19-7 gram/118 mL Enema 118 ml [place] DAILY PRN (Reason: Constipation) Ex-Lax Maximum Strength 25 mg Tablet 25 mg PO DAILY PRN (Reason: Constipation) brimonidine [Alphagan P] 0.1 % drops 1 drp ophthalmic (eye) BID magnesium citrate [Citrate of Magnesia] Solution 60 ml PO BID Qty: 296 0RF diclofenac sodium 75 mg tablet,delayed release (DR/EC) 75 mg PO Q12H PRN (Reason: pain) Qty: 20 0RF Discharge Orders: Discharge ED (Routine); Ordered 06/15/25 Ordered By: Mychal Vyas Referrals: Jackson Yi MD [Primary Care Provider, Family Practice] Patient Instructions: Opioid Safety, Pain Management, Patient Portal & [facility] Instructions Activity Restrictions/Additional Instructions: Continue treating conservatively at home. Follow-up with primary care provider as needed. Return with any new or worsening. Print Language: Divehi Coding Level of Care Code ED Customs Consultant for Chg Fwd Documented by User: Heath Holden DO 06/16/25 02:13 HPI - General Adult General: Chief complaint: General Medical Stated complaint: R Arm and back Pain Time Seen by Provider: 06/15/25 18:40 Related Data Home Medications ?Medication ?Instructions ?Recorded ?Confirmed bismuth subsalicylate 262 mg/15 mL 262 mg PO DAILY PRN Diarrhea 01/18/24 10/17/24 oral suspension (Pepto-Bismol) brimonidine 0.1 % eye drops 1 drp ophthalmic (eye) BID 01/18/24 10/17/24 (Alphagan P) magnesium hydroxide 400 mg/5 mL 30 ml PO QPM PRN Const ipation 01/18/24 10/17/24 oral suspension (Milk of Magnesia) sennosides 25 mg tablet (Ex-Lax 25 mg PO DAILY PRN Con stipation 01/18/24 10/17/24 Maximum Strength) sodium phosphates 19 gram-7 118 ml [place] DAILY PRN Consti pation 01/18/24 10/17/24 gram/118 mL enema (Fleet Enema) amlodipine 2.5 mg tablet 2.5 mg PO DAILY 05/26/24 Previous Rx's ?Medication ?Instructions ?Recorded magnesium citrate (Citrate of 60 ml PO BID #296 mL 10/25 Magnesia oral) diclofenac sodium 75 mg 75 mg PO Q12H PRN pain #20 t abs 05/17/25 tablet,delayed release Allergies Allergy/AdvReac Type Severity Reaction Status Date / Time adhesive tape Allergy ALGY-Rash Verified 06/14/25 18:29 Influenza Virus Vaccines Allergy ALGY-Rash Verified 06/14/25 18:29 [facility] ED PFSH: Medical History GERD (gastroesophageal reflux disease) Bilateral carotid artery stenosis without cerebral infarction Closed head injury Hyperlipidemia 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 disc disorder 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 region Lumbar stenosis without neurogenic claudication Stenosis of cervical spine with myelopathy 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 Pain management contract signed HX: breast cancer ER [place] negative, 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 status post radiation therapy and hormonal therapy, currently on Femara Stroke (cerebrum) Hx of stroke in February 07, 2019 Spondylolisthesis of cervical region Cervical disc disorder with myelopathy of mid-cervical region Chronic bronchitis Surgical History Status post carotid endarterectomy History of left breast biopsy Port-A-Cath in place 04/16/20 History of cholecystectomy History of hysterectomy / BSO / appendectomy H/O total hip arthroplasty Right Social History Smoking and tobacco/nicotine status: never used tobacco/nicotine Alcohol intake: never Substance/Drug Use: never Lives independently: Yes Household members: spouse Marital status: Current occupational status: retired Course Vital Signs: Vital signs: Vital Signs Temperature 98.1 F 06/15/25 18:35 Pulse Rate 89 06/15/25 18:35 Respiratory Rate 16 06/15/25 18:35 Blood Pressure 162/86 06/15/25 18:35 Pulse Oximetry 97 06/15/25 18:35 Oxygen Delivery Me thod Room Air 06/15/25 18:35 [facility] - General Adult Medical Decision Making Patient presented for the second time in 24 hours for continued pain to her right upper extremity. I question if this is related to patient's history of dementia, palpation of the right upper arm, where she is reporting still pain despite normal x-ray yesterday and normal exam yesterday, does not elicit any pain. She has full range of motion, full neurovascular status intact, and no new trauma since the initial fall a week ago. I have no concern for any DVT. In addition she has complaint today of right parathoracic/paralumbar back pain, that is nontender to palpation and does not appear to bother her when she is ambulating. Still did an x-ray of the right ribs and right lower back, I viewed these x-rays and do not see any obvious significant normalities and upon recheck of the patient's pain she states she feels without pain at this time and wants to go home to feed her animals. I informed her again of conservative measures at home to treat her conservative pain, that is still likely associated with the fall a week ago. She is encouraged to continue her wound care, and will be sent half dose of [place] to take before bed and strict precautions are given with this medication as well. This is to be used for breakthrough pain and if she has any more concerns to follow-up with primary care. Son and patient agree with this plan. This patient was originally seen by Mr. Lilliam PA-C. I agree with his history, evaluation, and management. Lab Data Radiology Impressions Lumbar Spine X-Ray 06/15/25 19:08 IMPRESSION: 1. No acute osseous findings. 2. Moderate to advanced multilevel lumbar spondylosis. Ribs X-Ray 06/15/25 19:11 IMPRESSION: No definite acute rib fracture. Discharge Plan Discharge Patient Disposition: Home Clinical Impression: Back pain Qualifiers: Back pain location: low back pain Chronicity: chronic Back pain laterality: right Sciatica presence: without sciatica Qualified Code(s): M54.50 - Low back pain, unspecified Contusion of elbow, right Qualifiers: Encounter type: initial encounter Qualified Code(s): S50.01XA - Contusion of right elbow, initial encounter Condition: Stable Prescriptions: No Action amlodipine 2.5 mg tablet 2.5 mg PO DAILY magnesium hydroxide [Milk of Magnesia] 400 mg/5 mL Suspension 30 ml PO QPM PRN (Reason: Constipation) bismuth subsalicylate [Pepto-Bismol] 262 mg/15 mL Suspension 262 mg PO DAILY PRN (Reason: Diarrhea) Fleet Enema 19-7 gram/118 mL Enema 118 ml [place] DAILY PRN (Reason: Constipation) Ex-Lax Maximum Strength 25 mg Tablet 25 mg PO DAILY PRN (Reason: Constipation) brimonidine [Alphagan P] 0.1 % drops 1 drp ophthalmic (eye) BID magnesium citrate [Citrate of Magnesia] Solution 60 ml PO BID Qty: 296 0RF diclofenac sodium 75 mg tablet,delayed release (DR/EC) 75 mg PO Q12H PRN (Reason: pain) Qty: 20 0RF Discharge Orders: Discharge ED (Routine); Ordered 06/15/25 Ordered By: Mychal Vyas Referrals: Jackson Yi MD [Primary Care Provider, Family Practice] Patient Instructions: Opioid Safety, Pain Management, Patient Portal & [facility] Instructions Activity Restrictions/Additional Instructions: Continue treating conservatively at home. Follow-up with primary care provider as needed. Return with any new or worsening. Print Language: Divehi Coding Level of Care Code ED Customs Consultant for Hardy Enriquez
== END 2025-06-15 20:57 | disposition home or self-care (01) ==
PROVIDERS: Emergency Provider Physician Assistant; PCP Family Medicine
DX: M54.50 Low back pain, unspecified (principal); S50.01XA Contusion of right elbow, initial encounter; E78.5 Hyperlipidemia, unspecified; Z85.3 Personal history of malignant neoplasm of breast; X58.XXXA Exposure to other specified factors, initial encounter
CPT/HCPCS: 71100; 72100; 99284; J9999

== ENCOUNTER 2025-06-23 14:15 | Inpatient (IN) | payer MEDICARE, SELFPAY ==
[2025-06-23] VITALS (17 sets, daily range): BP systolic 75–169; BP diastolic 46–116; PULSE 42–99; RESP 11–25; TEMP 36.7–36.8; O2SAT 93–98; BMI 25.2
--- OUTSIDE RECORDS SUMMARY | 2025-06-23 14:23 | XMS_ITS | Encounter Summary ---
Author Organization [facility] Address [address] [place] [address] Care Team Providers Care Associate Professor Of Radiology Name Role Phone Unavailable Primary Care Provider Unavailabl e Encounter Details Date Type Department Care Team (Late st Contact Info) Description 10/16/2020 Ancillary Orders [facility] Pre-Registration [place] CALL TO MAKE APPOINTMENT ONLY [address] [place] [address] Carl [place] MD [address] [place] [address] Non-Hodgkin lymphoma, unspecified, extranodal and solid organ sites (CMS/HCC); Malignant neoplasm of upper-outer quadrant of left female breast (CMS/HCC); Estrogen receptor positive status (ER+); 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
--- OUTSIDE RECORDS SUMMARY | 2025-06-23 14:23 | XMS_ITS | Clinical Summary ---
Author Organization [facility] Address [address] [place] [address] Phone Care Team Providers Care Armored Service Technician Name Role Phone Unavailable Primary Care [...] INFLUENZA VACCINE (#1) [address] [place] [address] [facility]
--- OUTSIDE RECORDS SUMMARY | 2025-06-23 14:23 | XMS_ITS | Clinical Summary ---
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
--- OUTSIDE RECORDS SUMMARY | 2025-06-23 14:24 | XMS_ITS | Encounter Summary ---
Author Organization [facility] Address [address] [place] [address] Care Team Providers Care Spray Technician Name Role Phone Unavailable Primary Care Provider Unavailabl e Reason for Referral * PET Scan (Urgent) - Closed Specialty Diagnoses / Procedures Referred By Deborah rasheed Referred To Contact Radiology Diagnoses Lymphoma, non-Hodgkin's (CMS/HCC) Procedures PET TUMOR IMG W CT SKL BSE MID THG Deana Barahona FNP [address] [place] [address] Phone: tel: fax: [facility] Nuclear Medicine [address] [place] [address] Phone: tel: fax: Referral ID Status Reason Start Date Expiration Date V isits Requested Visits Authorized [id number] Closed [facility] CTS to Schedule 08/12/2020 10/10/2020 1 1 Encounter Details Date Type Department Care Team (Late st Contact Info) Description 06/27/2020 Ancillary Orders [facility] Pre-Registration [place] CALL TO MAKE APPOINTMENT ONLY [address] [place] [address] Deana Barahona FNP [address] [place] [address] Lymphoma, non-Hodgkin's (CMS/HCC) Social History [...] Accreditation of Nuclear Medicine Laboratories (IAC Nuclear/PET). [id number] Narrative 08/15/2020 5:53 PM CDT Radionuclide PET Metabolic Tumor Imaging with CT Attenuation Correction and Anatomic Localization from Skull Base to Mid Thigh: Radiopharmaceutical: [id number] Dose: 13.9 mCi right AC IV Time of Injection: 14:40 hrs Clinical Indication: Initial treatment strategy to evaluate non-Hodgkin lymphoma. FDG (V-20-Zywxaqojmpfeknwmnp) PET imaging was performed at 15:40 hrs [...] from Skull Base to Mid Thigh: Radiopharmaceutical: [id number] Dose: 13.9 mCi right AC IV Time of Injection: 14:40 hrs Clinical Indication: Initial treatment strategy to evaluate non-Hodgkin lymphoma. FDG (I-19-Xqkkoyxhbfdszonlmr) PET imaging was performed at 15:40 hrs [...] Accreditation of Nuclear Medicine Laboratories (IAC Nuclear/PET). [id number] Deana Barahona [facility] PE ORDERABLES Final Result documented in this encounter Visit Diagnoses Diagnosis Lymphoma, non-Hodgkin's (CMS/HCC) Lymphosarcoma, unspecified site, extranodal and solid organ sites Lymphoma, non-Hodgkin's (CMS/HCC) Lymphosarcoma, unspecified site, extranodal and solid organ sites documented in this encounter
--- NOTE | 2025-06-23 14:31 | ECG_ITS ---
[facility] Test Date: 2025-06-23 Pat Name: Jenna Nye Department: Room: Gender: Female Occupational Health And Safety Manager: : 1945 Requested By: Esa Roth Order Number: [id number] Vicki MD: Gustabo Orta M.D. Measurements Intervals [place] Rate: 45 P: 56 VA: 204 QRS: 10 QRSD: 95 T: 117 QT: 596 QTc: 519 Interpretive Statements SINUS BRADYCARDIA WITH OCCASIONAL VENTRICULAR PREMATURE COMPLEXES SEPTAL MYOCARDIAL INFARCTION , OF INDETERMINATE AGE [40+ ms Q WAVE IN V1/V2] MODERATE T-WAVE ABNORMALITY, CONSIDER ANTEROLATERAL ISCHEMIA [-0.1+ mV T-WAVE IN V3-V6] PROLONGED QT INTERVAL. NONSPECIFIC INTRAVENTRICULAR CONDUCTION DELAY CRITICAL TEST RESULT Compared to ECG 05/26/2024 07:30:23 Ventricular premature complex(es) now present.T-wave abnormality now present Possible ischemia now present . Prolonged QT interval now present Sinus rhythm no longer present. First degree AV block no longer present Intraventricular conduction delay no longer present Myocardial infarct finding still present Electronically Signed On 06-24-2025 18:58:19 CDT by Gustabo Orta M.D. [email or web address]
--- NOTE | 2025-06-23 14:31 | XRR_ITS ---
PROCEDURE INFORMATION: Exam: XR Chest Exam date and time: 06/23/2025 2:32 PM Age: 79 years old Clinical indication: Pain; Chest pressure; Additional info: Chest pain; N/v; Loc TECHNIQUE: Imaging protocol: Radiologic exam of the chest. Views: 1 view. COMPARISON: CT chest abdpel w/*[id number] 09/01/2024 12:34 PM FINDINGS: Lungs: Unremarkable. No consolidation or mass. Pleural spaces: Unremarkable. No pleural effusion. No pneumothorax. Heart/Mediastinum: Unremarkable. No cardiomegaly. Bones/joints: Unremarkable. XR/XR chest 1V portable [id number] IMPRESSION: No acute findings.
[2025-06-23 14:39] LABS: Hematocrit 40.1 % (36-47); Hemoglobin 13.10 g/dL (11.27-16.99); Mean Corpuscular HGB Conc 32.7 g/dL (30-55); Mean Corpuscular Hemoglobin 30.5 pg (27-33); Mean Corpuscular Volume 93.3 fl (85-98); Nucleated Red Blood Cells % 0 %; Platelet Count 256 10^3/cmm (157-399); Red Blood Count 4.30 10^6/uL (3.85-5.65); White Blood Count 8.68 10^3/uL (3.29-11.43)
--- NOTE | 2025-06-23 14:41 | CTR_ITS ---
PROCEDURE INFORMATION: Exam: CT Head Without Contrast Exam date and time: 06/23/2025 2:59 PM Age: 79 years old Clinical indication: Altered mental status/memory loss; Additional info: AMS PT presents to ED with son for AMS, n/v. HX dementia. Son denies cardiac HX. PT has intermittent episodes of decreased loc during triage TECHNIQUE: Imaging protocol: Computed tomography of the head without contrast. Radiation optimization: All CT scans at this facility use at least one of these dose optimization techniques: automated exposure control; mA and/or kV adjustment per patient size (includes targeted exams where dose is matched to clinical indication); or iterative reconstruction. COMPARISON: CT head wo con* [id number] 05/26/2024 7:52 AM RADIATION DOSE METRICS: Total DLP (mGy-cm): 1134.73 FINDINGS: Brain: Prominent diffuse cerebral atrophy is noted. There is prominent chronic periventricular white matter ischemic change. There is no evidence of mass effect, hemorrhage or infarct. Cerebral ventricles: No ventriculomegaly. No midline shift. Paranasal sinuses: Visualized sinuses are unremarkable. No fluid levels. Mastoid air cells: Visualized mastoid air cells are well aerated. Bones: Unremarkable. No acute fracture. Soft tissues: Unremarkable. CT/CT head wo con* [id number] IMPRESSION: 1. No acute findings noted 2. Cerebral atrophy with chronic ischemic changes noted
--- NOTE | 2025-06-23 14:43 | ED_ITS ---
HPI - Altered Mental Status 2 General: Chief Complaint: Nausea/Vomiting/Diarrhea Stated Complaint: N/V loss of consciousness Time Seen by Provider: 06/23/25 14:32 Source: patient and family (Son) Mode of arrival: wheelchair Limitations: altered mental status History of Present Illness: This patient was transported to the emergency department by her son. He states that they were driving along today and she seemed to be very slow to respond and then would not respond at all for short period of time and then would be slow again. He states that she fluctuated in and out of levels of consciousness. He is unclear certain of what might be contributing to this. He states he has control of her medications and she does not have any sedating medications that he is aware. She does not use alcohol etc. She has not been recently ill with any other conditions. No history of diabetes etc. No trauma history known. She has not been recently ill with fevers or chills nausea vomiting or diarrhea etc. He states that she tends not to drink as much fluid as he thinks she should. He states that she has not complained of chest pain or shortness of breath or other symptoms. When questioned she denies any pain at this time. She does have a history of mild dementia and both she and her son live in the same home now. MD complaint: altered mental status and confusion Timing confirmed by: family member Associated symptoms: Deny depression Related Data Home Medications ?Medication ?Instructions ?Recorded ?Confirmed bismuth subsalicylate 262 mg/15 mL 262 mg PO DAILY PRN Diarrhea 01/18/24 06/23/25 oral suspension (Pepto-Bismol) brimonidine 0.1 % eye drops 1 drp ophthalmic (eye) BID 01/18/24 06/23/25 (Alphagan P) magnesium hydroxide 400 mg/5 mL 30 ml PO QPM PRN Const ipation 01/18/24 06/23/25 oral suspension (Milk of Magnesia) sennosides 25 mg tablet (Ex-Lax 25 mg PO DAILY PRN Con stipation 01/18/24 06/23/25 Maximum Strength) sodium phosphates 19 gram-7 118 ml [place] DAILY PRN Consti pation 01/18/24 06/23/25 gram/118 mL enema (Fleet Enema) amlodipine 2.5 mg tablet 2.5 mg PO DAILY 05/26/24 mupirocin 2 % topical ointment See Rx Instructions .Nanci MCBRIDE 06/23/25 06/23/25 Previous Rx's ?Medication ?Instructions ?Recorded magnesium citrate (Citrate of 60 ml PO BID #296 mL 10/25 Magnesia oral) Allergies Allergy/AdvReac Type Severity Reaction Status Date / Time adhesive tape Allergy ALGY-Rash Verified 06/23/25 14:17 Influenza Virus Vaccines Allergy ALGY-Rash Verified 06/23/25 14:17 Review of Systems 2 Const: Denies: fever(s) or chills ENMT: Denies: odynophagia, nasal discharge or nasal congestion Card: Denies: chest pain, syncope or pre-syncope Resp: Denies: dyspnea, productive cough or non-productive cough GI: Denies: abdominal pain, nausea, vomiting or diarrhea : Denies: flank pain, difficulty voiding or dysuria Musc: Denies: neck pain, back pain, extremity pain or extremity swelling Skin/Breast: Denies: rash Neuro: Denies: headache(s), numbness in extremities, weakness in extremities or seizure-like activity Psych: Denies: depression Endo: Denies: polyuria or polydipsia PFSH ED 2 PFSH: Medical History GERD (gastroesophageal reflux disease) Bilateral carotid artery stenosis without cerebral infarction Closed head injury Hyperlipidemia 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 disc disorder 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 region Lumbar stenosis without neurogenic claudication Stenosis 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 spine 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 Pain management contract signed HX: breast cancer ER [place] negative, 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 status post radiation therapy and hormonal therapy, currently on Femara Stroke (cerebrum) Hx of stroke in February 07, 2019 Spondylolisthesis of cervical region Cervical disc disorder with myelopathy of mid-cervical region Chronic bronchitis Surgical History Status post carotid endarterectomy History of left breast biopsy Port-A-Cath in place 04/16/20 History of cholecystectomy History of hysterectomy / BSO / appendectomy H/O total hip arthroplasty Right Social History Smoking and tobacco/nicotine status: never used tobacco/nicotine Alcohol intake: never Substance/Drug Use: never Lives independently: Yes Household members: spouse Marital status: Current occupational status: retired Physical Exam 2 Narrative: She is awake and responds to voice but has some difficulty sustaining conversation and has fluctuating levels of consciousness. She can answer her name and give me her birthdate but is unclear at as to the date and her location currently. Const: COMMON NORMALS: no acute distress, average body habitus and alert E XAM LIMITATIONS: altered mental status GENERAL APPEARANCE: cooperative HENMT: COMMON NORMALS: normocephalic, moist oral mucous membranes and oropharynx normal HEAD & SCALP: normocephalic FACE & SINUS: face symmetric Eye: COMMON NORMALS: conjunctivae normal, normal visual chavez by confrontation and fundi normal bilaterally CONJUNCTIVA: Yes conjunctivae normal PUPIL: Yes pupil size - right Right pupil size (mm): 2 and Yes pupil size - left (2) EOM: Yes EOM abnormal DIRECT OPHTHALMOSCOPY: Yes fundi normal bilaterally Neck/C-Spine: COMMON NORMALS: full ROM, supple, Thyroid normal and No carotid bruits THYROID: Thyroid normal OTHER: She has a well-healed surgical scar in her right anterior neck Chest: COMMONS NORMALS: normal inspection of the chest Resp: COMMON NORMALS: normal respiratory effort, No use of accessory muscles and clear to auscultation bilaterally AUSCULTATION: clear to auscultation bilaterally Cardio: COMMON NORMALS: regular rate, regular rhythm, No murmurs present (Cardio) and Peripheral pulses 2+ throughout RATE: regular rate RHYTHM: r egular rhythm PERIPHERAL PULSES: Peripheral pulses 2+ throughout GI: COMMON NORMALS: Normal to inspection, nondistended, normoactive bowel sounds present, Soft to palpation, non-tender and No hepatosplenomegaly present PALPATION: Yes Soft to palpation and Yes No hepatosplenomegaly present Back/Pelvis: COMMON NORMALS: thoracic and lumbar spine normal to inspection and no thoracic nor lumbar tenderness Extremity: COMMON NORMALS: normal to inspection, full ROM and no pedal edema Neuro: COMMON NORMALS: moves all extremities, no focal motor deficits and no sensory deficits noted SENSORIUM/ORIENTATION: Yes alert Skin: COMMON NORMALS: no rashes or lesions noted, no wounds and turgor normal GENERAL SKIN EXAM: no rashes or lesions noted and turgor normal Course 2 Reevaluation(s): Reevaluation #1: Again reviewed her medication list she does take a low-dose of amlodipine but she has no access to other prescribed medicines such as opiates etc. Her QT is prolonged compared with previous tracings we will go ahead and give her a gram of calcium gluconate while we are proceeding with her workup. Time: 14:59 Reevaluation #2: Her blood pressure is improved and she is more alert now after receiving calcium gluconate single dose of 1 g IV. Son feels she is pretty close to her usual baseline. Reviewed medications with her son who has not certain but he does not think that she takes any amlodipine at home. He still cannot rule out that she might not have medications in a location that he is not aware. Time: 15:57 Reevaluation #3: Patient has evidence of a urinary tract infection which may be a contributing factor to her altered mental status her vital signs are certainly improved after IV fluids and a gram of calcium. Discussed with the son who is her primary caregiver and he would endorse a period of observation which I think is reasonable given her clinical picture. She is also in atrial fibrillation now which is not documented as being a known condition in her chart and her son does not have any knowledge of her ever being in atrial fibrillation. He does have DURABLE POWER OF ACCOUNTS PAYABLE TECHNICIAN for healthcare decisions. Time: 17:01 Consultations: Consultation #1: Discussed with the attending hospitalist Dr. Arauz who agreed to place the patient in observation status. Time: 17:14 Vital Signs: Vital signs: Vital Signs Pulse Rate 66 06/23/25 15:30 Respiratory Rate 21 H 06/23/25 15:30 Blood Pressure 163/68 06/23/25 15:30 Pulse Oximetry 98 06/23/25 14:45 Oxygen Delivery Me thod Room Air 06/23/25 14:16 MDM - Altered Mental Status Medical Decision Making This patient was transported as noted in the HPI to the emergency department by her son who noted fluctuating level of consciousness today. He he added that she has mild chronic dementia but he lives with her and is her primary caregiver. He is not aware of any medication misadventures trauma recent illness etc. Her initial evaluation revealed her to be confused with bradycardia and hypotension. Workup was initiated to evaluate for potential causes of her acute delirium to include possible stroke, infection, medication misadventure, other toxic metabolic etiologies. Initial EKG showed a prolonged QT interval and she was given a gram of calcium gluconate followed by her IV fluid infusion. She had no focal neurologic findings and her CT scan was reassuring w/o hemorrhage, etc. Her edition improved with improving vital signs and some improvement in her mental status with a more baseline mental status per son. It was noted that she had urinary tract infection per a catheterized urinary specimen without any evidence that suggest sepsis and at this time. There was concerned about possible calcium channel abigail misadventure given that that was listed on her chart but her son was unaware of her having a store of calcium channel blockers in the home and he is the primary test director of her medications. She had a elevated troponin on initial laboratories and the implications of this was unclear. Repeat EKG did not show ischemic changes but did note that she was in atrial fibrillation with a normal corrected QT interval. Is unclear whether this atrial fibrillation has has been intermittently present and undiagnosed or whether it is a new diagnosis. She does not appear to be septic however because of her delirium superimposed on her dementia as well as her urinary tract infection and potentially new diagnosis of atrial fibrillation she is being placed in observation status for further workup and response to therapy. Again she is markedly clinically improved and does not represent sepsis or an unstable medical condition at this time. Medical Records I reviewed the patient's medical records. Lab Data I reviewed the patient's lab results. 06/23/25 14:30 06/23/25 14:30 Radiology Impressions Chest X-Ray 06/23/25 14:31 IMPRESSION: No acute findings. Head CT 06/23/25 14:41 IMPRESSION: 1. No acute findings noted 2. Cerebral atrophy with chronic ischemic changes noted Laboratory Results WBC 8.68 10^3/uL (3.29-11.43) 06/23/25 14:30 RBC 4.30 10^6/uL (3.85-5.65) 06/23/25 14:30 Hgb 13.10 g/dL (11.27-16.99) 06/23/25 14:30 Hct 40.1 % (36-47) 06/23/25 14:30 MCV 93.3 fl (85-98) 06/23/25 14:30 MCH 30.5 pg (27-33) 06/23/25 14:30 MCHC 32.7 g/dL (30-55) 06/23/25 14:30 RDW 14.2 % (12.1-15.1) 06/23/25 14:30 Plt Count 256 10^3/cmm (157-399) 06/23/25 14:30 MPV 9.4 fL (7.4-10.4) 06/23/25 14:30 Neut % (Auto) 40.9 % 06/23/25 14:30 Lymph % (Auto) 45.2 % 06/23/25 14:30 Hunt % (Auto) 10.3 % 06/23/25 14:30 Eos % (Auto) 2.3 % 06/23/25 14:30 Baso % (Auto) 1.2 % 06/23/25 14:30 Neut # (Auto) 3.56 10^3/uL (1.8-7.7) 06/23/25 14:30 Lymph # (Auto) 3.9 10^3/uL (0.8-4.8) 06/23/25 14:30 Hunt # (Auto) 0.9 10^3/uL (0.2-0.9) 06/23/25 14:30 Eos # (Auto) 0.2 10^3/uL (0.0-0.8) 06/23/25 14:30 Baso # (Auto) 0.1 10^3/uL (0.0-0.1) 06/23/25 14:30 Nucleated RBC % (auto) 0 % 06/23/25 14:30 Nucleated RBCs # 0.0 /100WBC 06/23/25 14:30 Sodium 135 mmol/L (136-145) L 06/23/25 14:30 Potassium 4.0 mmol/L (3.5-5.1) 06/23/25 14:30 Chloride 99 mmol/L (98-107) 06/23/25 14:30 Carbon Dioxide 25 mmol/L (22-29) 06/23/25 14:30 Anion Gap 15.0 (5-19) 06/23/25 14:30 BUN 18 mg/dL (8-23) 06/23/25 14:30 Creatinine 0.8 mg/dL (0.5-0.9) 06/23/25 14:30 GFR Calculation Not Reportable 06/23/25 14:30 Glucose 140 mg/dL (65-115) H 06/23/25 14:30 Calculated Osmolality 284 mOsm/kg (285-295) L 06/23/25 14:30 Calcium 9.6 mg/dL (8.5-10.5) 06/23/25 14:30 Total Bilirubin 0.4 mg/dL (0.15-1.2) 06/23/25 14:30 AST 21 U/L (0-32) 06/23/25 14:30 ALT 13 U/L (0-33) 06/23/25 14:30 Alkaline Phosphatase 79 U/L (35-105) 06/23/25 14:30 Troponin T Baseline 29 ng/L (0-10) H 06/23/25 14:30 Troponin T 120 Minute 20.64 ng/L (0-10) H 06/23/25 16:24 Delta Troponin T -8.36 ABS# (0-10) L 06/23/25 16:24 Total Protein 6.8 g/dL (6.6-8.7) 06/23/25 14:30 Albumin 4.1 g/dL (3.5-5.2) 06/23/25 14:30 Globulin 2.7 g/dL (1.3-4.6) 06/23/25 14:30 Urine Color Yellow (Yellow) 06/23/25 15:39 Urine Appearance Clear (CLEAR) 06/23/25 15:39 Urine pH 7.5 (5-7) 06/23/25 15:39 Ur Specific [place] 1.015 (1.005-1.030) 06/23/25 15:39 Urine Protein 1+ (Negative) A 06/23/25 15:39 Urine Glucose (UA) Negative (Normal) 06/23/25 15:39 Urine Ketones Negative (Negative) 06/23/25 15:39 Urine Blood Negative (Negative) 06/23/25 15:39 Urine Nitrate Negative (Negative) 06/23/25 15:39 Urine Bilirubin Negative (Negative) 06/23/25 15:39 Urine Urobilinogen 1.0 mg/dL (Negative) 06/23/25 15:39 Ur Leukocyte Esterase 2+ (Negative) A 06/23/25 15:39 Urine RBC 0-2 /hpf (0-2) 06/23/25 15:39 Urine WBC 51-100 /hpf (0-5) H 06/23/25 15:39 Ur Squamous Epith Cells 0-5 /hpf (0-5) 06/23/25 15:39 Amorphous Sediment Not Reportable 06/23/25 15:39 Urine Bacteria 4+ /hpf (NONE) H 06/23/25 15:39 Hyaline Casts 10.73 /lpf 06/23/25 15:39 Salicylates < 0.3 mg/dL (3-10) L 06/23/25 14:30 Urine Opiates Screen Negative ng/mL (Negative) 06/23/25 15:39 Acetaminophen < 5.0 ug/mL (10-30) L 06/23/25 14:30 Ur Barbiturates Screen Negative ng/mL (Negative) 06/23/25 15:39 Ur Phencyclidine Scrn Negative ng/mL (Negative) 06/23/25 15:39 Ur Amphetamines Screen Negative ng/mL (Negative) 06/23/25 15:39 U Benzodiazepines Scrn Negative ng/mL (Negative) 06/23/25 15:39 Urine Cocaine Screen Negative ng/mL (Negative) 06/23/25 15:39 U Marijuana (THC) Screen Negative ng/mL (Negative) 06/23/25 15:39 Ethyl Alcohol < 10 mg/dL (0-10) 06/23/25 14:30 All radiology interpretation(s) finalized by discharge EKG Data EKG 1: I personally reviewed and interpreted this EKG as follows: Interpretation: Contemporaneous review of EKG reveals a ventricular rate of 45 beats minute. He has normal KS interval, QRS QRS duration; does have prolonged QTc. No acute ST- T wave changes noted. No acute changes when compared with prior EKG tracings this system. EKG 2: I personally reviewed and interpreted this EKG as follows: Interpretation: Second EKG this visit reveals a ventricular rate of 74 bpm. The P waves are not discernible. She has a QRS duration of which is normal, a corrected QT interval which is also normal. The rhythm appears to be a change rhythm from that which was noted initially on the visit and she is now in atrial fibrillation with a controlled ventricular response. The prolonged QT interval previously noted is now resolved. Discharge Plan Discharge Patient Disposition: Placed in Observation Clinical Impression: Delirium, Chronic dementia, Atrial fibrillation, Urinary tract infection Coding Level of Care Code ED Electrical And Instrument Engineer for Hardy Enriquez
[2025-06-23 15:01] LABS: Troponin(5th) Baseline 29 ng/L (0-10)
[2025-06-23 15:02] LABS: Alanine Aminotransferase 13 U/L (0-33); Albumin Level 4.1 g/dL (3.5-5.2); Alkaline Phosphatase 79 U/L (35-105); Aspartate Amino Transferase 21 U/L (0-32); Blood Urea Nitrogen 18 mg/dL (8-23); Calcium 9.6 mg/dL (8.5-10.5); Carbon Dioxide 25 mmol/L (22-29); Chloride 99 mmol/L (98-107); Creatinine Clr Calc Pharmacy 46.1377; Globulin 2.7 g/dL (1.3-4.6); Glucose 140 mg/dL (65-115); Osmolality Calculated 284 mOsm/kg (285-295); Sodium 135 mmol/L (136-145); Total Protein 6.8 g/dL (6.6-8.7)
[2025-06-23 15:05] LABS: Acetaminophen < 5.0 ug/mL (10-30); Alcohol Level < 10 mg/dL (0-10); Salicylate < 0.3 mg/dL (3-10)
[2025-06-23 15:07] LABS: Anion Gap 15.0 (5-19); Potassium 4.0 mmol/L (3.5-5.1)
[2025-06-23] MEDS: calcium gluconate 0.1 gm/mL 10% SDV 10mL 1 GM IVP (15:09)
[2025-06-23 15:51] LABS: Glucose Urine UA Negative (Normal); Nitrate Urine Negative (Negative); Specific Gravity, Urine 1.015 (1.005-1.030)
[2025-06-23 15:56] LABS: Add Urine Microscopic? YES
[2025-06-23 15:58] LABS: PCP Screen Urine Negative (Negative)
[2025-06-23 16:05] LABS: UA Slide Review UA Slide Review Perf
--- NOTE | 2025-06-23 16:31 | ECG_ITS ---
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 Measurements Intervals [place] Rate: 74 P: 0 ME: 0 QRS: 59 QRSD: 129 T: 0 QT: 433 QTc: 481 Interpretive Statements multifocal atrial rhythm ANTEROSEPTAL MYOCARDIAL INFARCTION , OF INDETERMINATE AGE [40+ ms Q WAVE IN V1-V4] NONSPECIFIC INTRAVENTRICULAR CONDUCTION DELAY Compared to ECG 06/23/2025 16:36:18 Ventricular premature complex(es) no longer present Aberrant conduction of supraventricular beat(s) still present Intraventricular conduction delay no longer present Myocardial infarct finding still present Electronically Signed On 06-24-2025 19:09:35 CDT by Gustabo Orta M.D. [email or web address]
--- NOTE | 2025-06-23 16:36 | ECG_ITS ---
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 Measurements Intervals [place] Rate: 72 P: 0 DE: 0 QRS: 59 QRSD: 132 T: -76 QT: 429 QTc: 471 Interpretive Statements multifocal atrial rhythm INTRAVENTRICULAR CONDUCTION DELAY [130+ ms QRS DURATION] ANTEROSEPTAL MYOCARDIAL INFARCTION , OF INDETERMINATE AGE Compared to ECG 06/23/2025 14:25:19 Aberrant conduction of supraventricular beat(s) now present Intraventricular conduction delay now present Sinus bradycardia no longer present T-wave abnormality no longer present Possible ischemia no longer present Prolonged QT interval no longer present Myocardial infarct finding still present lead V6 is missing Electronically Signed On 06-24-2025 19:11:00 CDT by Gustabo Orta M.D. [email or web address]
[2025-06-23 16:58] LABS: Troponin 5 2HR 20.64 ng/L (0-10)
[2025-06-23 16:59] LABS: Troponin 5 2HR Delta -8.36 ABS# (0-10)
[2025-06-23] MEDS: cefTRIAXone 2,000 mg SDV 2000 MG IVP (17:09)
--- NOTE | 2025-06-23 17:32 | P.HP_ITS ---
Providers/Chief Complaint 2 Admitting Physician: West Dudley MD Primary Care Provider: Jackson Yi MD Chief Complaint: N/V loss of consciousness History of Present Illness As per the previous notes and the patient/family: The patient is poor historian as she has mild cognitive impairment versus altered mentation which could be acute or acute on chronic. Possible progressive memory deterioration. The history is unreliable and taken from the retrospective notes This patient was transported to the emergency department by her son. He states that they were driving along today and she seemed to be very slow to respond and then would not respond at all for short period of time and then would be slow again. He states that she fluctuated in and out of levels of consciousness. He is unclear certain of what might be contributing to this. He states he has control of her medications and she does not have any sedating medications that he is aware. She does not use alcohol etc. She has not been recently ill with any other conditions. No history of diabetes etc. No trauma history known. She has not been recently ill with fevers or chills nausea vomiting or diarrhea etc. He states that she tends not to drink as much fluid as he thinks she should. He states that she has not complained of chest pain or shortness of breath or other symptoms. When questioned she denies any pain at this time. She does have a history of mild dementia and both she and her son live in the same home now. The CODE STATUS has not been discussed with the patient since she is not oriented to time and the son was not available in the room, therefore to keep her meanwhile full code and treat accordingly. CODE STATUS to revised accordingly after discussion with the son. Review of Systems 2 General: Reports: 10 or more systems reviewed and unremarkable except in HPI and below Medications/Allergies Home Medications ?Medication ?Instructions ?Recorded ?Confirmed ?Last Taken ?Type bismuth subsalicylate 262 mg/15 mL 262 mg PO DAILY PRN Diarrhea 01/18/24 06/23/25 Unknown History oral suspension (Pepto-Bismol) brimonidine 0.1 % eye drops 1 drp ophthalmic (eye) BID 01/18/24 06/23/25 06/23/25 History (Alphagan P) magnesium hydroxide 400 mg/5 mL 30 ml PO QPM PRN Const ipation 01/18/24 06/23/25 05/25/24 History oral suspension (Milk of Magnesia) sennosides 25 mg tablet (Ex-Lax 25 mg PO DAILY PRN Con stipation 01/18/24 06/23/25 Unknown History Maximum Strength) sodium phosphates 19 gram-7 118 ml CA DAILY PRN Consti pation 01/18/24 06/23/25 Unknown History gram/118 mL enema (Fleet Enema) amlodipine 2.5 mg tablet 2.5 mg PO DAILY 05/26/2405/25/24 History magnesium citrate (Citrate of 60 ml PO BID #296 mL 10/2506/23/25 Unknown Rx Magnesia oral) mupirocin 2 % topical ointment See Rx Instructions .[place] .COMPLEX 06/23/25 06/23/25 Unknown History Allergies Allergy/AdvReac Type Severity Reaction Status Date / Time adhesive tape Allergy ALGY-Rash Verified 06/23/25 14:17 Influenza Virus Vaccines Allergy ALGY-Rash Verified 06/23/25 14:17 PFSH Acute 2 PFSH: Medical History (Updated 06/23/25 @ 17:14 by Esa Roth DO) GERD (gastroesophageal reflux disease) Bilateral carotid artery stenosis without cerebral infarction Closed head injury Hyperlipidemia 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 disc disorder 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 region Lumbar stenosis without neurogenic claudication Stenosis of cervical spine with 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 Pain management contract signed HX: breast cancer ER CA negative, 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 status post radiation therapy and hormonal therapy, currently on Femara Stroke (cerebrum) Hx of stroke in February 07, 2019 Spondylolisthesis of cervical region Cervical disc disorder with myelopathy of mid-cervical region Chronic bronchitis Surgical History Status post carotid endarterectomy History of left breast biopsy Port-A-Cath in place 04/16/20 History of cholecystectomy History of hysterectomy / BSO / appendectomy H/O total hip arthroplasty Right Social History Smoking and tobacco/nicotine status: never used tobacco/nicotine Alcohol intake: never Substance/Drug Use: never Lives independently: Yes Household members: spouse Marital status: Current occupational status: retired Vitals/I&O/Wt Last Vital Signs Pulse 66 06/23/25 15:30 Resp 21 H 06/23/25 15:30 BP 163/68 06/23/25 15:30 Pulse Ox 98 06/23/25 14:45 O2 Del Method Room Air 06/23/25 14:16 06/23/25 06/23/25 06/23/25 06:59 14:59 22:59 Intake Total 0 / 0 1000 / 1000 Balance 0 / 0 1000 / 1000 Weight last 48 hrs Weight 64.229 kg Physical Exam 2 Narrative: General: Alert oriented to self and place, patient seen lying comfortably without any distress HEENT: Normocephalic, atraumatic, EOMI, breathing at room air Cardio: Regular rate rhythm, normal S1-S2, no murmurs rubs gallops, JVD_normal Respiratory: Good bilateral air entry, no wheezes no rhonchi appreciated GI: Abdomen soft, nontender, nondistended, normoactive bowel sounds present all 4 quadrants, Neuro: Cranial nerves II to XII intact, strength 5/5, sensation 5/5, mild cognitive impairment versus not oriented to time however pleasant appearing lady and able to interact appropriately Behavior: Appropriate and cooperative Extremities: Pulses 2+, no edema, no cyanosis Skin: Visible skin intact, no rashes Data 06/23/25 14:30 06/23/25 14:30 Micro: Microbiology 06/23/25 17:16 Blood Culture - Preliminary Blood SPECIMEN COLLECTED 06/23/25 14:30 Blood Culture - Preliminary Blood SPECIMEN COLLECTED A&P Assessment and plan 1. Urinary tract infection: 2. Atrial fibrillation: 3. Chronic dementia: 4. Delirium: 5. Left hip pain: 6. GERD (gastroesophageal reflux disease): 7. Lumbar radiculopathy: Plan: UTI: - Urine cultures and blood cultures - Ceftriaxone 1 g daily - Maintain intake and output - Maintain adequate hydration New-onset atrial fibrillation: -Currently heart rate controlled, echo -Based on echo results consideration of anticoagulation, valvular versus nonvalvular in nature -Consider cardio consult based on echo results -Troponin and telemetry -Monitor vitals -No need for heart rate control at the moment since the heart rate is in 50s and 60s Altered mentation: Likely secondary to UTI Neuro vitals to monitor Fall risk assessment and aspiration precautions GERD: Famotidine and Maalox Chronic dementia: TSH, vitamin B12 syphilis CT head did not showed acute insult Consider memantine/donepezil as inpatient versus outpatient with PCP follow-up Left hip pain/lumbar radiculopathy Adequate analgesia VTE: Heparin twice daily Diet: Cardiac diet PDMP PDMP Reviewed: Not Reviewed Attestations 2 Medical Necessity Statement*: The patient will stay less than 2 midnights for observation for altered mentation and new onset/newly diagnosed atrial fibrillation Time Spent in Patient Care: 16 - 35 minutes (>than 50% of time sp ent in counselling and/or direct pt care on unit) . Other Attestations: Patient condition has been discussed at length with the patient/family, I have independently reviewed the chart labs imaging and diagnostics and EKG. the goals of care and code status with the patient/family/NOK/legal education courses sales representative, and documented accordingly. The patient/family has been informed about the current condition and further plan of care. Agreed with the plan of care and understood without any language barrier. This documentation was created by [employer] tooth inspector software. Every effort was made to ensure accuracy of tooth inspector. Any obvious errors or omissions should be clarified with the author of the document. Coding Level of Care Code Acute Code for Chg Fwd Diagnoses Urinary tract infection N39.0 Atrial fibrillation I48.91 Chronic dementia F03.90 Delirium R41.0 Left hip pain M25.552 GERD (gastroesophageal reflux disease) K21.9 Lumbar radiculopathy M54.16
--- NOTE | 2025-06-23 17:44 | PC.NURSE ---
This nurse took report from EDINSON Grossman in ER at [phone].
--- NOTE | 2025-06-23 18:04 | PC.NURSE ---
This nurse assumed care of pt at this time.
[2025-06-23] MEDS: heparin 5,000 unit/mL INJ 1 mL 5000 UNIT SUBCUT (18:40)
[2025-06-23 18:53] LABS: Magnesium 2.5 mg/dL (1.7-2.3); Thyroid Stimulating Hormone 3.57 uIU/mL (0.27-4.20)
[2025-06-23 20:13] LABS: Vitamin B12 1158 pg/mL (232-1245)
--- NOTE | 2025-06-23 20:31 | ECG_ITS ---
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 Measurements Intervals [place] Rate: 89 P: -14 OR: 221 QRS: 1 QRSD: 128 T: 252 QT: 404 QTc: 493 Interpretive Statements multifocal atrial rhythm LEFT BUNDLE BRANCH BLOCK [120+ ms QRS DURATION, 80+ ms Q/S IN V1/V2, 85+ ms R IN I/aVL/V5/V6] Compared to ECG 06/23/2025 16:39:31 First degree AV block now present Left bundle-branch block now present Atrial fibrillation no longer present Myocardial infarct finding no longer present Electronically Signed On 06-24-2025 19:05:19 CDT by Gustabo Orta M.D. [email or web address]
[2025-06-23 20:39] LABS: Rapid Plasma Reagin Syphilis Nonreactive (Nonreactive)
[2025-06-23] MEDS: haloperidol inj 5 mg/mL INJ 1 mL 1 MG IM (20:48)
[2025-06-23 21:17] LABS: Troponin 5 6HR 22.66 ng/L (0-10)
[2025-06-23 21:19] LABS: Troponin 5 6HR Delta -6.34 ng/L (0-12)
[2025-06-23] MEDS: HYDROmorphone tab 2 MG TABLET PO (22:52)
[2025-06-24] VITALS: BP 163/83; PULSE 82; RESP 15; TEMP 36.9; O2SAT 95
[2025-06-24 04:55] LABS: Hematocrit 42.2 % (36-47); Hemoglobin 14.00 g/dL (11.27-16.99); Mean Corpuscular HGB Conc 33.2 g/dL (30-55); Mean Corpuscular Hemoglobin 30.4 pg (27-33); Mean Corpuscular Volume 91.7 fl (85-98); Nucleated Red Blood Cells % 0 %; Platelet Count 263 10^3/cmm (157-399); Red Blood Count 4.60 10^6/uL (3.85-5.65); White Blood Count 8.65 10^3/uL (3.29-11.43)
[2025-06-24 05:12] LABS: Alanine Aminotransferase 14 U/L (0-33); Albumin Level 3.8 g/dL (3.5-5.2); Alkaline Phosphatase 79 U/L (35-105); Anion Gap 14.7 (5-19); Aspartate Amino Transferase 22 U/L (0-32); Blood Urea Nitrogen 16 mg/dL (8-23); Calcium 9.6 mg/dL (8.5-10.5); Carbon Dioxide 26 mmol/L (22-29); Chloride 100 mmol/L (98-107); Creatinine Clr Calc Pharmacy 44.1470; Globulin 3.3 g/dL (1.3-4.6); Glucose 94 mg/dL (65-115); Osmolality Calculated 285 mOsm/kg (285-295); Potassium 3.7 mmol/L (3.5-5.1); Sodium 137 mmol/L (136-145); Total Protein 7.1 g/dL (6.6-8.7)
[2025-06-24] MEDS: heparin 5,000 unit/mL INJ 1 mL 5000 UNIT SUBCUT ×2 (05:57→20:51)
[2025-06-24 05:59] VITALS: BP 168/88; PULSE 81; RESP 13; TEMP 36.6; O2SAT 97
[2025-06-24 07:22] VITALS: BP 170/86; PULSE 89; RESP 15; TEMP 36.6; O2SAT 96
[2025-06-24] MEDS: HYDROmorphone tab 2 MG TABLET PO (10:55)
[2025-06-24] MEDS: haloperidol inj 5 mg/mL INJ 1 mL 1 MG IM (11:44)
--- NOTE | 2025-06-24 11:44 | PC.NURSE ---
PRN Haldol: PRN Haldol 1 mg IM given to pt in left deltoid due to increased agitation. Injection site cleaned with alcohol and band-aid applied afterwards. No s/s of bleeding. Pt is throwing items she can reach from bedside, hitting, and kicking staff. Will monitor for medication effectiveness.
[2025-06-24 12:00] VITALS: BP 181/86; PULSE 94; RESP 15; TEMP 36.7; O2SAT 95
--- NOTE | 2025-06-24 12:46 | PC.NURSE ---
PRN Haldol: Medication not effective. Pt continues to try kicking staff, throwing items, pulling at lines, and being verbally aggressive.
--- NOTE | 2025-06-24 15:09 | P.PN_ITS ---
Subjective 2 Subjective: the patient was seen in the morning, and was agitated. she was having acute delirium episode disoriented and trying to go out of the bed she also had the same sun dawning episode overnight and recieved haldol the son came and confirmed her code status he has been informed about her delirium and cognitive decline and understands the situation. to keep the patient for further safe disposition and management of her delirum Vitals/I&O/Wt Last Vital Signs Temp 98.0 F 06/24/25 12:00 Pulse 94 06/24/25 12:00 Resp 15 06/24/25 12:00 BP 181/86 06/24/25 12:00 Pulse Ox 95 06/24/25 12:00 O2 Del Method Room Air 06/24/25 12:00 06/24/25 06/24/25 06/24/25 06:59 14:59 22:59 Intake Total 1088.75 / 2088.75 360 / 360 Balance 1088.75 / 688.75 360 / 360 Weight last 48 hrs Weight 58.513 kg Weight 58.513 kg Weight 64.229 kg Physical Exam 2 Narrative: General: patient seen trying get out of the bed, folleys catheter in place. alert but disoriented HEENT: Normocephalic, atraumatic, EOMI, breathing at room air Cardio: IRRegular rate rhythm, normal S1-S2, no murmurs rubs gallops, JVD_normal Respiratory: Good bilateral air entry, no wheezes no rhonchi appreciated GI: Abdomen soft, nontender, nondistended, normoactive bowel sounds present all 4 quadrants, Neuro: unable to assess due to patient incooperative behaviour Behavior: uncooperative and mild agitation Extremities: Pulses 2+, no edema, no cyanosis Skin: Visible skin intact, no rashes Data 06/24/25 04:41 06/24/25 04:41 Micro: Microbiology 06/23/25 15:39 Urine Culture - Preliminary Urine,Clean Catch Gram Negative Rods 06/23/25 17:16 Blood Culture - Preliminary Blood SPECIMEN COLLECTED 06/23/25 14:30 Blood Culture - Preliminary Blood SPECIMEN COLLECTED A&P Assessment and plan 1. CHF (congestive heart failure): 2. Urinary tract infection: 3. Atrial fibrillation: 4. Chronic dementia: 5. Delirium: 6. Hyperlipidemia: 7. Lumbar radiculopathy: 8. Lumbar spinal stenosis: 9. Bilateral carotid artery stenosis without cerebral infarction: Plan: UTI: - Urine cultures and blood cultures - Ceftriaxone 1 g daily - Maintain intake and output - Maintain adequate hydration New-onset atrial fibrillation: Chadsvasc >2, HASBLED: Around 2, risk of fall, non valvular At fib -Currently heart rate controlled, echo showed CHF with reduced EF from 71% to 33%, started on enoxaparin full dose anticoagulation considering that might need intervention from cardio possible cath vs cardioversion? - consulted cardio for further management - started on heart failure medications with BB, DANG-i and spironolactone at the time with small dose carvedilol 6.25mb bid and monitor HR and BP, if less than 60 HR and systolic BP <100mmhg to hold it, to monitor her BP and electrolytes - start losartan 25mg daily - start spironolactone 12.5mg daily - titrate doses of HF medications as per tolerability - consider SGLT2 inhibitors as outpatient if no contraindications ( currently having UTI therefore to hold it) -Troponin was not having remarkable rise and telemetry, showing at fib -Monitor vitals Altered mentation: acute encephalopathy secondary to UTI, metabolic encephalopathy/toxic encephalopathy Likely secondary to UTI and continue on abx Neuro vitals to monitor Fall risk assessment and aspiration precautions haldol PRN as needed GERD: Famotidine and Maalox Chronic dementia: TSH, vitamin B12 syphilis was unremarkable CT head did not showed acute insult Consider memantine/donepezil as inpatient versus outpatient with PCP follow-up Left hip pain/lumbar radiculopathy Adequate analgesia VTE: full dose enoxaparin Diet: Cardiac diet transfer to [facility] PDMP PDMP Reviewed: Not Reviewed Attestations 2 Medical Necessity Statement*: the patient will stay over 2 midnights considering patient having new CHF, at fib, delirium and safe disposition Time Spent in Patient Care: 16 - 35 minutes (>than 50% of time sp ent in counselling and/or direct pt care on unit) . Other Attestations: Patient condition has been discussed at length with the patient/family, I have independently reviewed the chart labs imaging and diagnostics and EKG. the goals of care and code status with the patient/family/NOK/legal call center support representative, and documented accordingly. The patient/family has been informed about the current condition and further plan of care. Agreed with the plan of care and understood without any language barrier. This documentation was created by [employer] certified hyperbaric technician software. Every effort was made to ensure accuracy of certified hyperbaric technician. Any obvious errors or omissions should be clarified with the author of the document. Coding Level of Care Code 81447 Diagnoses CHF (congestive heart failure) I50.9 Urinary tract infection N39.0 Atrial fibrillation I48.91 Chronic dementia F03.90 Delirium R41.0 Hyperlipidemia E78.5 Lumbar radiculopathy M54.16 Lumbar spinal stenosis M48.061 Bilateral carotid artery stenosis without cerebral infarction I65.23
--- NOTE | 2025-06-24 15:34 | PM.CONSULT ---
Providers/Reason For Consult Consulting Physician/Specialty*: OPAL Orta MD/cardiology Reason for Consult*: Patient was atrial fibrillation and echocardiograph evidence of LV systolic dysfunction Requesting Physician: Dr. Dudley Attending Physician: West Dudley MD Primary Care Provider: Jackson Yi MD History of Present Illness History of Present Illness Jenna Nye is a 79 year old female who is admitted to the hospital through the emergency room where she presented with an episode of? Passing out spell. She was found to be in ?atrial fibrillation. She had an echocardiogram which revealed LV ejection fraction of 33%. Cardiology consult is requested for further cardiac evaluation and recommendations. This patient is known to have progressive dementia. She was found to be very agitated and restless in the bed at the time of my examination. Most of the information is from her son and also from the medical records. She apparently had few episodes of passing out spells? yesterday while she was in the car with her son. According to her son, she was getting agitated and confused over the last several months. Yesterday as she was in the car with him and was found to have episodes of unresponsive state while sitting up in the car. She was not answering to his questions. For that reason, she was brought to the emergency room. She did not have any fever or chills. No headache. She had multiple episodes of fall lately. She was seen in the emergency room numerous times for various complaints over the last couple of years, including multiple falls. According to her son, she lost her in 2022. She used to live alone. But for the last 4 to 5 months, he moved in with her. Her mental status has been progressively getting worse. Currently she has a DNR status She never had any cardiac illnesses that he knows of. She was found to be in ? atrial fibrillation with a controlled ventricular response rate at the time of her admission. She has a history of hypertension, dyslipidemia and carotid artery disease. She had a carotid endarterectomy on the right side by Dr. Jonas, several years ago. She has moderate disease in the left ICA. Compliance to medication is questionable. She never had any heart failure. Her LV ejection fraction was normal in 2022. She has not had unusual shortness of breath. No chest pain or palpitations. Review of Systems Narrative: CONSTITUTIONAL: No fever or chills. EYES: No blurring of vision or other visual disturbances lately. ENT: No hoarseness of voice, auditory disturbances or sore throat. CARDIOVASCULAR: As mentioned above. RESPIRATORY: No significant cough. GASTROINTESTINAL: No hematemesis or melena. GENITOURINARY: No dysuria or hematuria. INTEGUMENTARY: No skin rashes or history of skin cancer. NEURO: As mentioned above PSYCHIATRIC: No history of psychosis or major depression. HEMATOLOGIC: No bleeding disorders or significant anemia. ENDOCRINE: No history of polyuria or polydipsia. MUSCULOSKELETAL: Multiple falls in the recent past ALLERGY/IMMUNOLOGY: As mentioned above. Medications/Allergies Home Medications ?Medication ?Instructions ?Recorded ?Confirmed ?Last Taken ?Type bismuth subsalicylate 262 mg/15 mL 262 mg PO DAILY PRN Diarrhea 01/18/24 06/23/25 Unknown History oral suspension (Pepto-Bismol) brimonidine 0.1 % eye drops 1 drp ophthalmic (eye) BID 01/18/24 06/23/25 06/23/25 History (Alphagan P) magnesium hydroxide 400 mg/5 mL 30 ml PO QPM PRN Constipation 01/18/24 06/23/25 05/25/24 History oral suspension (Milk of Magnesia) sennosides 25 mg tablet (Ex-Lax 25 mg PO DAILY PRN Constipation 01/18/24 06/23/25 Unknown History Maximum Strength) sodium phosphates 19 gram-7 118 ml IN DAILY PRN Constipation 01/18/24 06/23/25 Unknown History gram/118 mL enema (Fleet Enema) amlodipine 2.5 mg tablet 2.5 mg PO DAILY 05/26/24 06/23/25 05/25/24 History magnesium citrate (Citrate of 60 ml PO BID #296 mL 05/12/25 06/23/25 Unknown Rx Magnesia oral) mupirocin 2 % topical ointment See Rx Instructions .Route .COMPLEX 06/23/25 06/23/25 Unknown History Allergies Allergy/AdvReac Type Severity Reaction Status Date / Time adhesive tape Allergy ALGY-Rash Verified 06/23/25 14:17 Influenza Virus Vaccines Allergy ALGY-Rash Verified 06/23/25 14:17 Current Medications Generic Name Dose Route Start Last Admin Trade Name Freq PRN Reason Stop Dose Admin Famotidine 10 mg 06/24/25 09:00 06/24/25 08:59 Famotidine 20 Mg/2 Ml Inj IVP 10 mg Q12H DEIDRE Administration Heparin Sodium (Porcine) 5,000 unit 06/23/25 18:00 06/24/25 05:57 Heparin 5,000 Unit/Ml Inj 1 Ml SUBCUT 5,000 unit Q12H DEIDRE Administration Hydromorphone HCl 2 mg 06/23/25 18:30 06/24/25 10:55 Hydromorphone Tab 2 Mg Tablet PO 2 mg Q6H PRN Administration SEVERE PAIN Lactated Ringer's 1,000 mls @ 75 mls/hr 06/23/25 18:00 06/24/25 05:59 Lactated Ringers IV 06/24/25 17:59 75 mls/hr .[id number] DEIDRE Administration PFSH Acute PFSH: Medical History GERD (gastroesophageal reflux disease) Bilateral carotid artery stenosis without cerebral infarction Closed head injury Hyperlipidemia 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 disc disorder 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 region Lumbar stenosis without neurogenic claudication Stenosis of cervical spine with myelopathy senior care (current) use of opiate analgesic Pain management contract signed HX: breast cancer ER [place] negative, 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 status post radiation therapy and hormonal therapy, currently on Femara Stroke (cerebrum) Hx of stroke in February 07, 2019 Spondylolisthesis of cervical region Cervical disc disorder with myelopathy of mid-cervical region Chronic bronchitis Surgical History Status post carotid endarterectomy History of left breast biopsy Port-A-Cath in place 04/16/20 History of cholecystectomy History of hysterectomy / BSO / appendectomy H/O total hip arthroplasty Right Social History Smoking and tobacco/nicotine status: never used tobacco/nicotine Alcohol intake: never Substance/Drug Use: never Lives independently: Yes Household members: spouse Marital status: Current occupational status: retired Vitals/I&O/Wt Last Vital Signs Temp 98.0 F 06/24/25 12:00 Pulse 94 06/24/25 12:00 Resp 15 06/24/25 12:00 BP 181/86 06/24/25 12:00 Pulse Ox 95 06/24/25 12:00 O2 Del Method Room Air 06/24/25 12:00 06/24/25 06/24/25 06/24/25 06:59 14:59 22:59 Intake Total 1088.75 / 2088.75 360 / 360 Balance 1088.75 / 688.75 360 / 360 Weight last 48 hrs Weight 129 lb Weight 129 lb Weight 141 lb 9.6 oz Physical Exam Narrative: GENERAL: The patient is alert but agitated and remains confused. Moving all extremities. HEENT: No significant pallor, icterus or lymphadenopathy.Oral cavity: There are no mucous membrane lesions. NECK: Trachea appears to be central. No masses noted. No JVD or thyromegaly appreciated. RESPIRATORY: Chest is symmetrical. No intercostals muscle retraction or any accessory muscle activation. There is no chest wall tenderness. Breath sounds are heard bilaterally. No rales or rhonchi heard. No evidence of any consolidation. BREASTS: Deferred. HEART: The heart sounds are normal. No S3 or S4. Short systolic murmur in the left sternal border. No diastolic murmurs. No pericardial rub ABDOMEN: No vessel pulsations or distention. No tenderness. No organomegaly appreciated. Bowel sounds are normally heard. : Deferred. RECTAL: Deferred. LYMPHATIC: No lymphadenopathy noted in the neck. EXTREMITIES: Relatively cold extremities. Pulses are palpable but weak MUSCULOSKELETAL: No acute joint deformities or swelling SKIN: There are no significant rashes or ecchymosis NEUROPSYCHIATRIC: Agitated and confused. No focal motor deficits. Data 06/25/25 09:18 06/25/25 09:18 Other Labs: Laboratory Last Values WBC 8.65 10^3/uL (3.29-11.43) 06/24/25 04:41 RBC 4.60 10^6/uL (3.85-5.65) 06/24/25 04:41 Hgb 14.00 g/dL (11.27-16.99) 06/24/25 04:41 Hct 42.2 % (36-47) 06/24/25 04:41 MCV 91.7 fl (85-98) 06/24/25 04:41 MCH 30.4 pg (27-33) 06/24/25 04:41 MCHC 33.2 g/dL (30-55) 06/24/25 04:41 RDW 14.0 % (12.1-15.1) 06/24/25 04:41 Plt Count 263 10^3/cmm (157-399) 06/24/25 04:41 MPV 9.6 fL (7.4-10.4) 06/24/25 04:41 Neut % (Auto) 47.9 % 06/24/25 04:41 Lymph % (Auto) 38.4 % 06/24/25 04:41 [place] % (Auto) 10.6 % 06/24/25 04:41 Eos % (Auto) 1.8 % 06/24/25 04:41 Baso % (Auto) 1.0 % 06/24/25 04:41 Neut # (Auto) 4.13 10^3/uL (1.8-7.7) 06/24/25 04:41 Lymph # (Auto) 3.3 10^3/uL (0.8-4.8) 06/24/25 04:41 [place] # (Auto) 0.9 10^3/uL (0.2-0.9) 06/24/25 04:41 Eos # (Auto) 0.2 10^3/uL (0.0-0.8) 06/24/25 04:41 Baso # (Auto) 0.1 10^3/uL (0.0-0.1) 06/24/25 04:41 Nucleated RBC % (auto) 0 % 06/24/25 04:41 Nucleated RBCs # 0.0 /100WBC 06/24/25 04:41 Sodium 137 mmol/L (136-145) 06/24/25 04:41 Potassium 3.7 mmol/L (3.5-5.1) 06/24/25 04:41 Chloride 100 mmol/L (98-107) 06/24/25 04:41 Carbon Dioxide 26 mmol/L (22-29) 06/24/25 04:41 Anion Gap 14.7 (5-19) 06/24/25 04:41 BUN 16 mg/dL (8-23) 06/24/25 04:41 Creatinine 0.7 mg/dL (0.5-0.9) 06/24/25 04:41 GFR Calculation Not Reportable 06/24/25 04:41 Glucose 94 mg/dL (65-115) 06/24/25 04:41 POC Glucose 146 mg/dL (70-110) H 06/23/25 14:29 Calculated Osmolality 285 mOsm/kg (285-295) 06/24/25 04:41 Calcium 9.6 mg/dL (8.5-10.5) 06/24/25 04:41 Phosphorus 2.1 mg/dL (2.5-4.5) L 06/23/25 16:24 Magnesium 2.5 mg/dL (1.7-2.3) H 06/23/25 16:24 Total Bilirubin 0.5 mg/dL (0.15-1.2) 06/24/25 04:41 AST 22 U/L (0-32) 06/24/25 04:41 ALT 14 U/L (0-33) 06/24/25 04:41 Alkaline Phosphatase 79 U/L (35-105) 06/24/25 04:41 Troponin T Baseline 29 ng/L (0-10) H 06/23/25 14:30 Troponin T 120 Minute 20.64 ng/L (0-10) H 06/23/25 16:24 Delta Troponin T -8.36 ABS# (0-10) L 06/23/25 16:24 Troponin T Hi Sens 6Hr 22.66 ng/L (0-10) H 06/23/25 20:45 Troponin T Hi Sens 6Hr Delta -6.34 ng/L (0-12) L 06/23/25 20:45 Total Protein 7.1 g/dL (6.6-8.7) 06/24/25 04:41 Albumin 3.8 g/dL (3.5-5.2) 06/24/25 04:41 Globulin 3.3 g/dL (1.3-4.6) 06/24/25 04:41 Vitamin B12 1158 pg/mL (232-1245) 06/23/25 14:30 TSH 3.57 uIU/mL (0.27-4.20) 06/23/25 16:24 Urine Color Yellow (Yellow) 06/23/25 15:39 Urine Appearance Clear (CLEAR) 06/23/25 15:39 Urine pH 7.5 (5-7) 06/23/25 15:39 Ur Specific [place] 1.015 (1.005-1.030) 06/23/25 15:39 Urine Protein 1+ (Negative) A 06/23/25 15:39 Urine Glucose (UA) Negative (Normal) 06/23/25 15:39 Urine Ketones Negative (Negative) 06/23/25 15:39 Urine Blood Negative (Negative) 06/23/25 15:39 Urine Nitrate Negative (Negative) 06/23/25 15:39 Urine Bilirubin Negative (Negative) 06/23/25 15:39 Urine Urobilinogen 1.0 mg/dL (Negative) 06/23/25 15:39 Ur Leukocyte Esterase 2+ (Negative) A 06/23/25 15:39 Urine RBC 0-2 /hpf (0-2) 06/23/25 15:39 Urine WBC 51-100 /hpf (0-5) H 06/23/25 15:39 Ur Squamous Epith Cells 0-5 /hpf (0-5) 06/23/25 15:39 Amorphous Sediment Not Reportable 06/23/25 15:39 Urine Bacteria 4+ /hpf (NONE) H 06/23/25 15:39 Hyaline Casts 10.73 /lpf 06/23/25 15:39 Salicylates < 0.3 mg/dL (3-10) L 06/23/25 14:30 Urine Opiates Screen Negative ng/mL (Negative) 06/23/25 15:39 Acetaminophen < 5.0 ug/mL (10-30) L 06/23/25 14:30 Ur Barbiturates Screen Negative ng/mL (Negative) 06/23/25 15:39 Ur Phencyclidine Scrn Negative ng/mL (Negative) 06/23/25 15:39 Ur Amphetamines Screen Negative ng/mL (Negative) 06/23/25 15:39 U Benzodiazepines Scrn Negative ng/mL (Negative) 06/23/25 15:39 Urine Cocaine Screen Negative ng/mL (Negative) 06/23/25 15:39 U Marijuana (THC) Screen Negative ng/mL (Negative) 06/23/25 15:39 Ethyl Alcohol < 10 mg/dL (0-10) 06/23/25 14:30 RPR Nonreactive (Nonreactive) 06/23/25 14:30 Micro: Microbiology 06/23/25 15:39 Urine Culture - Preliminary Urine,Clean Catch Gram Negative Rods 06/23/25 17:16 Blood Culture - Preliminary Blood SPECIMEN COLLECTED 06/23/25 14:30 Blood Culture - Preliminary Blood SPECIMEN COLLECTED Other data: Echocardiogram from today Moderate diffuse hypokinesis left ventricular ejection fraction of 33%. Mildly dilated LV.Grade III/IV diastolic dysfunction (restrictive filling pattern), severely elevated filling pressures. Mildly increased left atrial size. Thickened mitral valve. Moderate mitral annular calcification. Mild mitral valve regurgitation. Thickened aortic valve. Trace aortic valve regurgitation. Mild tricuspid valve regurgitation. Mild pulmonary valve regurgitation. Estimated pulmonary artery peak systolic pressure 70 mmHg with a mean pressure of 38 mmHg-moderate pulmonary hypertension. There is no pericardial effusion. There are no intracardiac masses. Compared to study from 02/11/2022, there is significant decline in the LV ejection fraction from 71% to 33% and development of pulmonary hypertension. The EKG showed Possible multifocal atrial rhythm. Poor R wave progression. QS pattern in lead V2 V3. Diffuse nonspecific ST-T changes. Nonspecific IVCD. A&P Assessment and plan 1. Multifocal atrial tachycardia determined by electrocardiography: Review of the patient's EKG showed multifocal atrial rhythm/tachycardia. Since the heart rate is under control, I may hold off on any specific medications at this time. 2. Cardiomyopathy, unspecified type: The etiology of the LV dysfunction is not clear at this time. It could be arrhythmogenic. Underlying coronary ischemia cannot be excluded. Patient currently has no chest pain. Patient may be treated with GDMT-agree with the carvedilol, losartan, spironolactone and careful IV diuresis. 3. Congestive heart failure, unspecified HF chronicity, unspecified heart failure type: The heart failure seems to be fairly compensated at this time. I may go ahead and do a pro BNP to further evaluate. Hemodynamically the patient seems to be stable 4. Mixed hyperlipidemia: Lipid profile on the blood in the lab. 5. Bilateral carotid artery stenosis without cerebral infarction: May continue on the current management. Patient was found to have left ICA stenosis of 72% by CTA in March of last year. A repeat Doppler examination may be appropriate to reevaluate. 6. Benign hypertension: Patient has stage II hypertension. The antihypertensive medications may be optimized. Plan: I discussed with the patient's son regarding further cardiac evaluation. In view of her poor overall physical condition, she would not be a good candidate for any invasive /interventional procedures. The son who has the power of compliance attorney, did not want her to go through cardiac catheterization or coronary interventions. He wants her to be just managed medically. May be continued on aspirin She will be started on guideline directed medical therapy Patient the clinical progress, further recommendations will be made Thank you for the opportunity to evaluate this patient and make these recommendations PDMP PDMP Reviewed: Not Reviewed Coding Level of Care Code 88385 Diagnoses Multifocal atrial tachycardia determined by electrocardiography I47.19 Cardiomyopathy, unspecified type I42.9 Cardiomyopathy type: unspecified Congestive heart failure, unspecified HF chronicity, unspecified heart failure type I50.9 Heart failure chronicity: unspecified Heart failure type: unspecified Mixed hyperlipidemia E78.2 Hyperlipidemia type: mixed hyperlipidemia Bilateral carotid artery stenosis without cerebral infarction I65.23 Benign hypertension I10
[2025-06-24 15:57] VITALS: BP 186/93; PULSE 108; RESP 16; TEMP 36.7; O2SAT 90
[2025-06-24] MEDS: haloperidol inj 5 mg/mL INJ 1 mL 2 MG IM ×2 (16:29→23:44)
--- NOTE | 2025-06-24 16:29 | PC.NURSE ---
PRN Haldol: PRN Haldol 2 mg IM given to pt in right deltoid due to increased agitation. Injection site cleaned with alcohol and band-aid applied afterwards. No s/s of bleeding. Pt is throwing items she can reach from bedside, hitting, and kicking staff. Pt is also pulling at line and catheter. Will monitor for medication effectiveness.
[2025-06-24] MEDS: cefTRIAXone 1,000 mg SDV 1000 MG IVP (16:30)
--- NOTE | 2025-06-24 17:56 | USCV_ITS ---
Jenna Nye Age: 79 Gender: F : 1945 Exam Date: 06/24/2025 08:05 Ordering Phys: West Dudley MD Technologist: Harshad Kauffman Exam Location: [facility] [place] Indication: new onset afib, sinus feng BP: 170 / 86 HR: 63 Rhythm: Sinus Technical Quality: Adequate MEASUREMENTS (Male / Female) Normal Values 2D ECHO LV Diastolic Diameter PLAX 4.4 cm 4.2 - 5.9 / 3.9 - 5.3 cm IVS Diastolic Thickness 1.1 cm 0.6 - 1.0 / 0.6 - 0.9 cm IVS Systolic Thickness 1.2 cm LVPW Diastolic Thickness 0.9 cm 0.6 - 1.0 / 0.6 - 0.9 cm LVPW Systolic Thickness 1.7 cm LVOT Diameter 2.1 cm LV Ejection Fraction 2D Teich 41.0 % LV Ejection Fraction MOD 4C 27.7 % LV Ejection Fraction MOD 2C 34.7 % LV Ejection Fraction 2C AL 32.7 % LA Diameter 3.3 cm RA Systolic Volume 4C AL 20.2 ml RA Systolic Volume 4C MOD 20.0 ml LA Sys Volume AL 47.8 cm cubed LA Sys Volume Index AL 30.1 cm cubed/m squared Aorta at Sinotubular Diameter 2.6 cm IVC Diameter 1.1 cm M-MODE LA Ao Ratio MM 1.7 AV Cusp Separation MM 1.4 cm DOPPLER AV Peak Velocity 174.0 cm/s LVOT Peak Velocity 85.0 cm/s AV Area Cont Eq vti 1.7 cm squared AV Area Cont Eq pk 1.6 cm squared MV Peak Velocity 178.0 cm/s MV Area PHT 3.9 cm squared Mitral E to A Ratio 0.7 TV Peak Velocity 363.7 cm/s TR Peak Velocity 409.0 cm/s TR Peak Gradient 66.9 mmHg TR Mean Velocity 277.0 cm/s TR Mean Gradient 35.0 mmHg TR Velocity Time Integral 94.2 cm PV Peak Velocity 105.3 cm/s RV Ejection Time 0.3 s FINDINGS Left Ventricle Moderate diffuse hypokinesis left ventricular ejection fraction of 33%. Mildly dilated LV.Grade III/IV diastolic dysfunction (restrictive filling pattern), severely elevated filling pressures. Right Ventricle Normal right ventricular size and systolic function. Right Atrium Normal right atrial size. Left Atrium Mildly increased left atrial size. Mitral Valve Thickened mitral valve. Moderate mitral annular calcification. Mild mitral valve regurgitation. Aortic Valve Thickened aortic valve. Trace aortic valve regurgitation. Tricuspid Valve Mild tricuspid valve regurgitation. Pulmonic Valve Mild pulmonary valve regurgitation. Pericardium No pericardial effusion. Aorta Normal aortic annulus size. IVC Normal inferior vena cava. CONCLUSIONS Moderate diffuse hypokinesis left ventricular ejection fraction of 33%. Mildly dilated LV.Grade III/IV diastolic dysfunction (restrictive filling pattern), severely elevated filling pressures. Mildly increased left atrial size. Thickened mitral valve. Moderate mitral annular calcification. Mild mitral valve regurgitation. Thickened aortic valve. Trace aortic valve regurgitation. Mild tricuspid valve regurgitation. Mild pulmonary valve regurgitation. Estimated pulmonary artery peak systolic pressure 70 mmHg with a mean pressure of 38 mmHg-moderate pulmonary hypertension. There is no pericardial effusion. There are no intracardiac masses. Compared to study from 02/11/2022, there is significant decline in the LV ejection fraction from 71% to 33% and development of pulmonary hypertension. Dr Gustabo Orta MD [facility] (Electronically Signed) Final Date: 24 June 2025 10:39 S
[2025-06-24 18:59] LABS: NT Pro B Type Natriuretic Pept 6420 pg/mL (0-450)
[2025-06-24 19:11] VITALS: BP 148/88; PULSE 79; RESP 23; TEMP 36.7; O2SAT 90
[2025-06-24 20:19] LABS: Cholesterol 233 mg/dL (0-200); HDL Cholesterol 35 mg/dL (60-100); Triglycerides 265 mg/dL (0-150)
[2025-06-25 04:00] VITALS: BP 175/102
[2025-06-25 08:00] VITALS: BP 167/91; PULSE 94; RESP 16; TEMP 36.8; O2SAT 96
--- NOTE | 2025-06-25 08:29 | PM.PN ---
Subjective Subjective: The patient was seen in the morning and better than yesterday more calm and has been given haldol for her agitation alert and cooperative spoke to the son and would prefer her on medical management without any further intervention Vitals/I&O/Wt Last Vital Signs Temp 98.1 F 06/24/25 19:11 Pulse 79 06/24/25 19:11 Resp 23 H 06/24/25 19:11 BP 175/102 06/25/25 04:00 Pulse Ox 90 06/24/25 19:11 O2 Del Method Room Air 06/24/25 19:11 06/24/25 06/25/25 06/25/25 22:59 06:59 14:59 Intake Total 1050 / 1410 100 / 1510 Output Total 1200 / 1200 200 / 1400 Balance -150 / 210 -100 / 110 Weight last 48 hrs Weight 58.649 kg Weight 58.513 kg Weight 58.513 kg Weight 64.229 kg Physical Exam Narrative: General: patient seen not oriented to place and time, oriented to self, calm today and not in distress, HEENT: Normocephalic, atraumatic, EOMI, breathing at room air Cardio: IRRegular rate rhythm, normal S1-S2, no murmurs rubs gallops, JVD_normal Respiratory: Good bilateral air entry, no wheezes no rhonchi appreciated GI: Abdomen soft, nontender, nondistended, normoactive bowel sounds present all 4 quadrants, Neuro:grossly unremarkable Behavior: cooperative and calm Extremities: Pulses 2+, no edema, no cyanosis Skin: Visible skin intact, no rashes Data 06/25/25 09:18 06/25/25 09:18 Micro: Microbiology 06/23/25 17:16 Blood Culture - Preliminary Blood NEGATIVE TO DATE 06/23/25 14:30 Blood Culture - Preliminary Blood NEGATIVE TO DATE 06/23/25 15:39 Urine Culture - Preliminary Urine,Clean Catch Gram Negative Rods A&P Assessment and plan 1. Congestive heart failure, unspecified HF chronicity, unspecified heart failure type: 2. Urinary tract infection: 3. Atrial fibrillation, unspecified type: 4. Chronic dementia: 5. Delirium: 6. Mixed hyperlipidemia: 7. Lumbar radiculopathy: 8. Lumbar spinal stenosis: 9. Bilateral carotid artery stenosis without cerebral infarction: 10. Pulmonary hypertension: Plan: UTI: - Urine cultures showed gram negative rods, sensitivity awaited, blood cultures pending - Ceftriaxone 1 g daily to continue and to follow the final results - if patient spikes fever then consider blood cultures repeat and escalation of abx - Maintain intake and output - Maintain adequate hydration New-onset atrial fibrillation: Chadsvasc >2, HASBLED: Around 2, risk of fall, non valvular At fib -Currently heart rate controlled, echo showed CHF with reduced EF from 71% to 33%, cardiology was consulted and after thorough discussion with the patient's son for all the risk and benefits, the son opted to keep medical management and not to go for any intervention by cardioversion or device insertion for atrial fibrillation. - Continue aspirin, anticoagulation not started although the Ian Vascor is high however the patient is at high risk of bleeding due to falls and agitation. - On heart failure medications with BB, DANG-i and spironolactone at the time with small dose carvedilol 12.5 twice daily and monitor HR and BP, if less than 60 HR and systolic BP <100mmhg to hold it, to monitor her BP and electrolytes - Continue losartan 25mg daily - Continue spironolactone 12.5mg daily - titrate doses of HF medications as per tolerability - consider SGLT2 inhibitors as outpatient if no contraindications ( currently having UTI therefore to hold it) -Troponin was not having remarkable rise and telemetry, showing at fib -Monitor vitals Hypertension: Continue amlodipine 5 mg and can increase to 10 mg Keep the patient calm since her agitation can also increase blood pressure Monitor blood pressure Altered mentation: acute encephalopathy secondary to UTI, metabolic encephalopathy/toxic encephalopathy Likely secondary to UTI and continue on abx Neuro vitals to monitor Fall risk assessment and aspiration precautions haldol PRN as needed GERD: Famotidine and Maalox Chronic dementia: TSH, vitamin B12 syphilis was unremarkable CT head did not showed acute insult Consider memantine/donepezil as inpatient versus outpatient with PCP follow-up Left hip pain/lumbar radiculopathy Adequate analgesia VTE: full dose enoxaparin Diet: Cardiac diet disposition: shelter? vs home to be decided after discussing with the son PDMP PDMP Reviewed: Not Reviewed Attestations Medical Necessity Statement*: the patient will stay further considering patient having new CHF, at fib, delirium and safe disposition Time Spent in Patient Care: 16 - 35 minutes (>than 50% of time spent in counselling and/or direct pt care on unit). Other Attestations: Patient condition has been discussed at length with the patient/family, I have independently reviewed the chart labs imaging and diagnostics and EKG. the goals of care and code status with the patient/family/NOK/legal product representative, and documented accordingly. The patient/family has been informed about the current condition and further plan of care. Agreed with the plan of care and understood without any language barrier. This documentation was created by [employer] insecticide supervisor software. Every effort was made to ensure accuracy of insecticide supervisor. Any obvious errors or omissions should be clarified with the author of the document. Coding Level of Care Code Acute Code for Chg Fwd Diagnoses Congestive heart failure, unspecified HF chronicity, unspecified heart failure type I50.9 Heart failure chronicity: unspecified Heart failure type: unspecified Urinary tract infection N39.0 Atrial fibrillation, unspecified type I48.91 Atrial fibrillation type: unspecified Chronic dementia F03.90 Delirium R41.0 Mixed hyperlipidemia E78.2 Hyperlipidemia type: mixed hyperlipidemia Lumbar radiculopathy M54.16 Lumbar spinal stenosis M48.061 Bilateral carotid artery stenosis without cerebral infarction I65.23 Pulmonary hypertension I27.20
--- NOTE | 2025-06-25 08:33 | PM.DCS ---
Discharge Providers Date of Admission: 06/24/25 19:17 Date of Discharge: June 25, 2025 Attending Provider at Admission: West Dudley MD Attending Provider at Discharge: West Dudley MD Primary Care Provider: Jackson Yi MD Diagnoses at Discharge Discharge Diagnosis 1. Congestive heart failure, unspecified HF chronicity, unspecified heart failure type: 2. Urinary tract infection: 3. Atrial fibrillation, unspecified type: 4. Chronic dementia: 5. Delirium: 6. Mixed hyperlipidemia: 7. Lumbar radiculopathy: 8. Lumbar spinal stenosis: 9. Bilateral carotid artery stenosis without cerebral infarction: Reason for Visit Reason for Visit: N/V loss of consciousness Brief History: As per the previous notes and the patient/family: The patient is poor historian as she has mild cognitive impairment versus altered mentation which could be acute or acute on chronic. Possible progressive memory deterioration. The history is unreliable and taken from the retrospective notes This patient was transported to the emergency department by her son. He states that they were driving along today and she seemed to be very slow to respond and then would not respond at all for short period of time and then would be slow again. He states that she fluctuated in and out of levels of consciousness. He is unclear certain of what might be contributing to this. He states he has control of her medications and she does not have any sedating medications that he is aware. She does not use alcohol etc. She has not been recently ill with any other conditions. No history of diabetes etc. No trauma history known. She has not been recently ill with fevers or chills nausea vomiting or diarrhea etc. He states that she tends not to drink as much fluid as he thinks she should. He states that she has not complained of chest pain or shortness of breath or other symptoms. When questioned she denies any pain at this time. She does have a history of mild dementia and both she and her son live in the same home now. The CODE STATUS has not been discussed with the patient since she is not oriented to time and the son was not available in the room, therefore to keep her meanwhile full code and treat accordingly. CODE STATUS to revised accordingly after discussion with the son. Hospital Course Hospital Course The patient was admitted for the patient has likely UTI and started on ceftriaxone. she also underwent CT head which did not show any acute insult. Chest x-ray did not show any acute findings. Microbiology showed urine culture showing gram-negative rods and preliminary blood cultures were negative. Echo was done since the patient was found to have atrial fibrillation on EKG. Echo showed co heart failure with reduced ejection fraction 33%. Cardiology was consulted meanwhile patient was started on full dose anticoagulation in case the intervention is required however after discussing with the son and all the benefits and risk of the intervention this is opted for medical management. The full dose anticoagulation was held and started on aspirin since the patient has high risk of bleeding due to agitation and falls. The patient kept in the hospital for adequate replacement longterm which the son also agreed for Discharge Data Studies Completed and Pending Completed Studies During Hospitalization Category Date Time Status CT head wo con* [id number] Stat Cat Scan 06/23/25 14:41 Completed XR chest 1V portable [id number] Stat Exams 06/23/25 14:31 Completed CV. echo complete* [id number] Routine Ultrasound 06/24/25 17:56 Completed Pending at discharge Category Date Time Status Blood Culture Stat Lab 06/23/25 17:16 Results CBC Auto Diff [Complete Blood Count w/Auto] AM LABS Lab 06/26/25 04:00 Ordered CBC Auto Diff [Complete Blood Count w/Auto] Stat Lab 06/25/25 08:33 Ordered CMP [Comprehensive Metabolic Panel] AM LABS Lab 06/26/25 04:00 Ordered CMP [Comprehensive Metabolic Panel] Stat Lab 06/25/25 08:33 Ordered Urine Culture Stat Lab 06/23/25 15:39 Results CV carotid duplex BI* [id number] Routine Ultrasound 06/25/25 18:29 Ordered Radiology Impressions Chest X-Ray 06/23/25 14:31 IMPRESSION: No acute findings. Head CT 06/23/25 14:41 IMPRESSION: 1. No acute findings noted 2. Cerebral atrophy with chronic ischemic changes noted Laboratory Results WBC 8.65 10^3/uL (3.29-11.43) 06/24/25 04:41 RBC 4.60 10^6/uL (3.85-5.65) 06/24/25 04:41 Hgb 14.00 g/dL (11.27-16.99) 06/24/25 04:41 Hct 42.2 % (36-47) 06/24/25 04:41 MCV 91.7 fl (85-98) 06/24/25 04:41 MCH 30.4 pg (27-33) 06/24/25 04:41 MCHC 33.2 g/dL (30-55) 06/24/25 04:41 RDW 14.0 % (12.1-15.1) 06/24/25 04:41 Plt Count 263 10^3/cmm (157-399) 06/24/25 04:41 MPV 9.6 fL (7.4-10.4) 06/24/25 04:41 Neut % (Auto) 47.9 % 06/24/25 04:41 Lymph % (Auto) 38.4 % 06/24/25 04:41 [place] % (Auto) 10.6 % 06/24/25 04:41 Eos % (Auto) 1.8 % 06/24/25 04:41 Baso % (Auto) 1.0 % 06/24/25 04:41 Neut # (Auto) 4.13 10^3/uL (1.8-7.7) 06/24/25 04:41 Lymph # (Auto) 3.3 10^3/uL (0.8-4.8) 06/24/25 04:41 [place] # (Auto) 0.9 10^3/uL (0.2-0.9) 06/24/25 04:41 Eos # (Auto) 0.2 10^3/uL (0.0-0.8) 06/24/25 04:41 Baso # (Auto) 0.1 10^3/uL (0.0-0.1) 06/24/25 04:41 Nucleated RBC % (auto) 0 % 06/24/25 04:41 Nucleated RBCs # 0.0 /100WBC 06/24/25 04:41 Sodium 137 mmol/L (136-145) 06/24/25 04:41 Potassium 3.7 mmol/L (3.5-5.1) 06/24/25 04:41 Chloride 100 mmol/L (98-107) 06/24/25 04:41 Carbon Dioxide 26 mmol/L (22-29) 06/24/25 04:41 Anion Gap 14.7 (5-19) 06/24/25 04:41 BUN 16 mg/dL (8-23) 06/24/25 04:41 Creatinine 0.7 mg/dL (0.5-0.9) 06/24/25 04:41 GFR Calculation Not Reportable 06/24/25 04:41 Glucose 94 mg/dL (65-115) 06/24/25 04:41 POC Glucose 146 mg/dL (70-110) H 06/23/25 14:29 Calculated Osmolality 285 mOsm/kg (285-295) 06/24/25 04:41 Calcium 9.6 mg/dL (8.5-10.5) 06/24/25 04:41 Phosphorus 2.1 mg/dL (2.5-4.5) L 06/23/25 16:24 Magnesium 2.5 mg/dL (1.7-2.3) H 06/23/25 16:24 Total Bilirubin 0.5 mg/dL (0.15-1.2) 06/24/25 04:41 AST 22 U/L (0-32) 06/24/25 04:41 ALT 14 U/L (0-33) 06/24/25 04:41 Alkaline Phosphatase 79 U/L (35-105) 06/24/25 04:41 Troponin T Baseline 29 ng/L (0-10) H 06/23/25 14:30 Troponin T 120 Minute 20.64 ng/L (0-10) H 06/23/25 16:24 Delta Troponin T -8.36 ABS# (0-10) L 06/23/25 16:24 Troponin T Hi Sens 6Hr 22.66 ng/L (0-10) H 06/23/25 20:45 Troponin T Hi Sens 6Hr Delta -6.34 ng/L (0-12) L 06/23/25 20:45 NT-Pro-B Natriuret Pep 6420 pg/mL (0-450) H 06/24/25 04:41 Total Protein 7.1 g/dL (6.6-8.7) 06/24/25 04:41 Albumin 3.8 g/dL (3.5-5.2) 06/24/25 04:41 Globulin 3.3 g/dL (1.3-4.6) 06/24/25 04:41 Triglycerides 265 mg/dL (0-150) H 06/24/25 04:41 Cholesterol 233 mg/dL (0-200) H 06/24/25 04:41 LDL Cholesterol, Calc 145 mg/dL (50-129) H 06/24/25 04:41 HDL Cholesterol 35 mg/dL (60-100) L 06/24/25 04:41 LDL/HDL Ratio 4.14 RATIO (0.00-3.22) H 06/24/25 04:41 Cholesterol/HDL Ratio 6.66 mg/dL (0.0-4.40) H 06/24/25 04:41 Vitamin B12 1158 pg/mL (232-1245) 06/23/25 14:30 TSH 3.57 uIU/mL (0.27-4.20) 06/23/25 16:24 Urine Color Yellow (Yellow) 06/23/25 15:39 Urine Appearance Clear (CLEAR) 06/23/25 15:39 Urine pH 7.5 (5-7) 06/23/25 15:39 Ur Specific [place] 1.015 (1.005-1.030) 06/23/25 15:39 Urine Protein 1+ (Negative) A 06/23/25 15:39 Urine Glucose (UA) Negative (Normal) 06/23/25 15:39 Urine Ketones Negative (Negative) 06/23/25 15:39 Urine Blood Negative (Negative) 06/23/25 15:39 Urine Nitrate Negative (Negative) 06/23/25 15:39 Urine Bilirubin Negative (Negative) 06/23/25 15:39 Urine Urobilinogen 1.0 mg/dL (Negative) 06/23/25 15:39 Ur Leukocyte Esterase 2+ (Negative) A 06/23/25 15:39 Urine RBC 0-2 /hpf (0-2) 06/23/25 15:39 Urine WBC 51-100 /hpf (0-5) H 06/23/25 15:39 Ur Squamous Epith Cells 0-5 /hpf (0-5) 06/23/25 15:39 Amorphous Sediment Not Reportable 06/23/25 15:39 Urine Bacteria 4+ /hpf (NONE) H 06/23/25 15:39 Hyaline Casts 10.73 /lpf 06/23/25 15:39 Salicylates < 0.3 mg/dL (3-10) L 06/23/25 14:30 Urine Opiates Screen Negative ng/mL (Negative) 06/23/25 15:39 Acetaminophen < 5.0 ug/mL (10-30) L 06/23/25 14:30 Ur Barbiturates Screen Negative ng/mL (Negative) 06/23/25 15:39 Ur Phencyclidine Scrn Negative ng/mL (Negative) 06/23/25 15:39 Ur Amphetamines Screen Negative ng/mL (Negative) 06/23/25 15:39 U Benzodiazepines Scrn Negative ng/mL (Negative) 06/23/25 15:39 Urine Cocaine Screen Negative ng/mL (Negative) 06/23/25 15:39 U Marijuana (THC) Screen Negative ng/mL (Negative) 06/23/25 15:39 Ethyl Alcohol < 10 mg/dL (0-10) 06/23/25 14:30 RPR Nonreactive (Nonreactive) 06/23/25 14:30 Vitals Last Vital Signs Temp 98.1 F 06/24/25 19:11 Pulse 79 06/24/25 19:11 Resp 23 H 06/24/25 19:11 BP 175/102 06/25/25 04:00 Pulse Ox 90 06/24/25 19:11 O2 Del Method Room Air 06/24/25 19:11 Discharge Plan Discharge Condition: Stable Prescriptions: New sulfamethoxazole-trimethoprim [Bactrim DS] 800-160 mg tablet 1 tab PO BID 3 Days Qty: 6 0RF Continued amlodipine 2.5 mg tablet 2.5 mg PO DAILY magnesium hydroxide [Milk of Magnesia] 400 mg/5 mL Suspension 30 ml PO QPM PRN (Reason: Constipation) bismuth subsalicylate [Pepto-Bismol] 262 mg/15 mL Suspension 262 mg PO DAILY PRN (Reason: Diarrhea) Fleet Enema 19-7 gram/118 mL Enema 118 ml [place] DAILY PRN (Reason: Constipation) Ex-Lax Maximum Strength 25 mg Tablet 25 mg PO DAILY PRN (Reason: Constipation) brimonidine [Alphagan P] 0.1 % drops 1 drp ophthalmic (eye) BID mupirocin 2 % ointment See Rx Instructions .ROUTE .COMPLEX Rx Instructions: APPLY A SMALL AMOUNT OF OINTMENT TOPICALLY TO AFFECTED AREA THREE TIMES DAILY. Discontinued magnesium citrate [Citrate of Magnesia] Solution 60 ml PO BID Qty: 296 0RF Referrals: Lucero Skinner DO [Referring, Geriatrics] Referral Note: cognitive impairment and memory concerns Jackson Yi MD [Primary Care Provider, [facility]] - 4-7 days Referral Note: post discharge follow up for cognitive concerns Discharge Diet: Advance as tolerated Discharge Activity: Resume usual activity Patient Instructions: Opioid Safety, Patient Portal & [facility] Instructions Discharge Attestations Time Spent in Discharge Care*: less than 30 min Specific Discharge Activities: educating patient, educating and/or supporting family/caregiver, discussing with pcp/other providers, discussing with rn case management/social workers/dc planners, documenting/other paperwork and evaluating patient/reviewing data Status at Discharge: Cognitive status at discharge: mildly impaired cognition, Behavioral status at discharge: can be uncooperative, Functional status at discharge: other assisted ambulation, Overall status at discharge: patient is not back to baseline Quality Metrics Clinical Quality Measures [ No reported AMI, CVA or VTE this stay] Coding Level of Care Code Acute Code for Chg Fwd Diagnoses Congestive heart failure, unspecified HF chronicity, unspecified heart failure type I50.9 Heart failure type: unspecified Heart failure chronicity: unspecified Urinary tract infection N39.0 Atrial fibrillation, unspecified type I48.91 Atrial fibrillation type: unspecified Chronic dementia F03.90 Delirium R41.0 Mixed hyperlipidemia E78.2 Hyperlipidemia type: mixed hyperlipidemia Lumbar radiculopathy M54.16 Lumbar spinal stenosis M48.061 Bilateral carotid artery stenosis without cerebral infarction I65.23
[2025-06-25 08:35] VITALS: BP 175/102
[2025-06-25] MEDS: heparin 5,000 unit/mL INJ 1 mL 5000 UNIT SUBCUT ×2 (08:37→18:12)
[2025-06-25 09:32] LABS: Hematocrit 42.8 % (36-47); Hemoglobin 14.20 g/dL (11.27-16.99); Mean Corpuscular HGB Conc 33.2 g/dL (30-55); Mean Corpuscular Hemoglobin 31.3 pg (27-33); Mean Corpuscular Volume 94.5 fl (85-98); Nucleated Red Blood Cells % 0 %; Platelet Count 255 10^3/cmm (157-399); Red Blood Count 4.53 10^6/uL (3.85-5.65); White Blood Count 13.63 10^3/uL (3.29-11.43)
[2025-06-25 09:46] LABS: Alanine Aminotransferase 16 U/L (0-33); Albumin Level 3.5 g/dL (3.5-5.2); Alkaline Phosphatase 80 U/L (35-105); Anion Gap 15.5 (5-19); Aspartate Amino Transferase 39 U/L (0-32); Blood Urea Nitrogen 15 mg/dL (8-23); Calcium 9.2 mg/dL (8.5-10.5); Carbon Dioxide 24 mmol/L (22-29); Chloride 97 mmol/L (98-107); Creatinine Clr Calc Pharmacy 44.1943; Globulin 3.2 g/dL (1.3-4.6); Glucose 139 mg/dL (65-115); Osmolality Calculated 279 mOsm/kg (285-295); Potassium 3.5 mmol/L (3.5-5.1); Sodium 133 mmol/L (136-145); Total Protein 6.7 g/dL (6.6-8.7)
--- NOTE | 2025-06-25 09:47 | PC.CHAP ---
Pastoral Care Encounter/Spiritual Assessment Type of Contact [] Declined area mechanic visit [] Patient/Family/Request visit [] Outpatient visit [] Follow-up visit [] Physician referral [] Code/Alert [x] Routine visit [] Staff referral [] Actively dying [] Patient sleeping [] Family support [] [] Out of room [] Palliative care [] [x] Receiving care in room [] Pre-surgical visit [] Trauma [] Long length of stay [] ICU visit [] Other: Relational/Emotional Strength [] Patient feels connected with others/family/visitors/staff [] Distress [] Loneliness/isolation [] Abandonment Spirituality of Patient [] Person of Kylie [] Attends Faith of their Kylie [] Believes in Prayer [] Reads Bible or Confucianism materials [] There are Spiritual issues to be addressed [employer] Operator Interventions [x] Prayer [] Active listening [] Non-anxious presence [] Spiritual/emotional support [] Crisis/trauma care [] Spiritual counseling [] Bereavement support [] Provided bereavement packet [] Provided Bible/devotional materials [] Provided toy/stuffed animal, coloring book to patient or family member [] Provided Communion [] Anointing/[place] [] Salvation [] Completed spiritual assessment [] Other: Impact on Illness or Injury [] Angry [] Fearful [] Anxious [] Often cries [] Exhaustion [] Unable to work [] Unable to attend confucianism [] Unable to walk/stand [] Unable to read [] Unable to drive [] Unable to eat/drink [] Unable to sleep [] Unable to be with family [] Patient intubated [] Other: Summary Time spent with patient
[2025-06-25 12:00] VITALS: BP 132/77; PULSE 70; RESP 20; TEMP 36.5; O2SAT 96
--- NOTE | 2025-06-25 12:20 | PC.NURSE ---
a small seed tick found between great and second tow on left foot.easily removed.dr groves notified.
[2025-06-25 16:00] VITALS: BP 152/74; PULSE 68; RESP 16; TEMP 37.4; O2SAT 97
[2025-06-25] MEDS: cefTRIAXone 1,000 mg SDV 1000 MG IVP (17:23)
--- NOTE | 2025-06-25 18:29 | USCV_ITS ---
Jenna Nye Age: 79 Gender: F : 1945 Exam Date: 06/25/2025 15:07 Ordering Phys: Gustabo Orta MD ([email or web address]) Technologist: BOGDAN Exam Location: [facility] [place] Indication: Bilateral Stenosis Risk Factors: Previous Vascular Surgery: Right Brachial BP: / Left Brachial BP: / Right Left Velocity (cm/s) Spectral Plaque Velocity (cm/s) Spectral Plaque Syst/Diast Broadening Syst/Diast Broadening 55.60/ 15.40 Prox CCA 56.20 / 9.70 88.00/ 20.60 Mid CCA 59.30 / 9.60 53.00/ 6.30 Distal CCA 41.10 / 8.40 47.70/ 10.50 Prox ICA 295.60/ 72.40 65.00/ 18.10 Mid ICA 225.00/ 31.10 82.30/ 14.80 Distal ICA 78.30 / 9.70 237.60 ECA 133.70 0.90 ICA/CCA 7.20 Antegrade Vertebral Antegrade 55.90/ 10.40 cm/s 70.90/ 14.60 cm/s Tri Subclavian Tri 73.40 70.40 CONCLUSIONS Right ICA stenosis <50%. Mild atheromatous plaque Left ICA stenosis 70-99%. Velocities progressed since 2023.. Recommend CTA in further evaluation. .Moderate atheromatous plaque left carotid bulb/ICA. Intimal thickening in the common carotid arteries and internal carotid arteries bilaterally. Normal antegrade Doppler flow noted in the right vertebral artery. Normal antegrade Doppler flow noted in the left vertebral artery. Pastor Banda MD (Electronically Signed) Final Date: 25 June 2025 15:35 S
[2025-06-25 20:00] VITALS: BP 159/63; PULSE 62
--- NOTE | 2025-06-25 21:16 | PM.PN ---
Subjective Subjective: Patient is somewhat drowsy. No chest pain or shortness of breath. Telemetry shows multifocal atrial rhythm. Blood pressure still staying in the 150s and 160s Medications: Medication Review Details: Current Medications Acetaminophen (Acetaminophen 325 Mg Tablet) 650 mg PO Q6H PRN PRN Reason: Mild/Mod Pain Or Temp >/= 101 Al Hydrox/Mg Hydrox/Simethicone (Ygmt-Fvw-Wfxbjppqr-Masoud 30 Ml Udc) 15 ml PO Q6H PRN PRN Reason: INDIGESTION Amlodipine Besylate (Amlodipine 5 Mg Tablet) 10 mg PO DAILY [facility] Last Admin: 06/25/25 08:37 Dose: 10 mg Aspirin (Aspirin 81 Mg Ec Tablet) 81 mg PO DAILY [facility] Last Admin: 06/25/25 08:36 Dose: 81 mg Bisacodyl (Bisacodyl 5 Mg Tablet) 10 mg PO DAILY PRN; Protocol PRN Reason: Constipation (see protocol) Carvedilol (Carvedilol 6.25 Mg Tablet) 12.5 mg PO BID [facility] Last Admin: 06/25/25 17:24 Dose: 12.5 mg Ceftriaxone Sodium (Ceftriaxone 1,000 Mg Sdv) 1,000 mg IVP Q24H [facility]; Protocol Last Admin: 06/25/25 17:23 Dose: 1,000 mg Famotidine (Famotidine 20 Mg/2 Ml Inj) 10 mg IVP Q12H [facility] Last Admin: 06/25/25 20:26 Dose: 10 mg Haloperidol Lactate (Haloperidol Inj 5 Mg/Ml Inj 1 Ml) 2 mg IM Q6H PRN PRN Reason: AGITATION Last Admin: 06/24/25 23:44 Dose: 2 mg Heparin Sodium (Porcine) (Heparin 5,000 Unit/Ml Inj 1 Ml) 5,000 unit SUBCUT Q12H [facility] Last Admin: 06/25/25 18:12 Dose: 5,000 unit Hydromorphone HCl (Hydromorphone Tab 2 Mg Tablet) 1 mg PO Q6H PRN PRN Reason: SEVERE PAIN Losartan Potassium (Losartan 50 Mg Tablet) 25 mg PO DAILY [facility] Last Admin: 06/25/25 08:35 Dose: 25 mg Magnesium Hydroxide (Magnesium Hydroxide 30 Ml Udc) 30 ml PO DAILY PRN; Protocol PRN Reason: Constipation (see protocol) Potassium Phosphate (Phosphorus 250 Mg Tablet) 250 mg PO BID [facility] Last Admin: 06/25/25 17:24 Dose: 250 mg Spironolactone (Spironolactone 25 Mg Tablet) 12.5 mg PO DAILY [facility] Last Admin: 06/25/25 08:36 Dose: 12.5 mg Vitals/I&O/Wt Last Vital Signs Temp 99.3 F 06/25/25 16:00 Pulse 62 06/25/25 20:00 Resp 16 06/25/25 16:00 BP 159/63 06/25/25 20:00 Pulse Ox 97 06/25/25 16:00 O2 Del Method Room Air 06/25/25 16:00 06/25/25 06/25/25 06/25/25 06:59 14:59 22:59 Intake Total 100 / 1510 300 / 300 60 / 360 Output Total 200 / 1400 450 / 450 Balance -100 / 110 300 / 300 -390 / -90 Weight last 48 hrs Weight 129 lb 4.8 oz Weight 129 lb Physical Exam Narrative: GENERAL: The patient is somewhat drowsy HEENT: No significant pallor, icterus or lymphadenopathy.Oral cavity: There are no mucous membrane lesions. NECK: Trachea appears to be central. No masses noted. No JVD or thyromegaly appreciated. RESPIRATORY: Chest is symmetrical. No intercostals muscle retraction or any accessory muscle activation. There is no chest wall tenderness. Breath sounds are heard bilaterally. No rales or rhonchi heard. No evidence of any consolidation. BREASTS: Deferred. HEART: The heart sounds are normal. No S3 or S4. Short systolic murmur in the left sternal border. No diastolic murmurs. No pericardial rub ABDOMEN: No vessel pulsations or distention. No tenderness. No organomegaly appreciated. Bowel sounds are normally heard. : Deferred. RECTAL: Deferred. LYMPHATIC: No lymphadenopathy noted in the neck. EXTREMITIES: Relatively cold extremities. Pulses are palpable but weak MUSCULOSKELETAL: No acute joint deformities or swelling SKIN: There are no significant rashes or ecchymosis NEUROPSYCHIATRIC: Agitated and confused. No focal motor deficits. Data 06/25/25 09:18 06/25/25 09:18 Other Labs: Laboratory Last Values WBC 13.63 10^3/uL (3.29-11.43) H 06/25/25 09:18 RBC 4.53 10^6/uL (3.85-5.65) 06/25/25 09:18 Hgb 14.20 g/dL (11.27-16.99) 06/25/25 09:18 Hct 42.8 % (36-47) 06/25/25 09:18 MCV 94.5 fl (85-98) 06/25/25 09:18 MCH 31.3 pg (27-33) 06/25/25 09:18 MCHC 33.2 g/dL (30-55) 06/25/25 09:18 RDW 14.0 % (12.1-15.1) 06/25/25 09:18 Plt Count 255 10^3/cmm (157-399) 06/25/25 09:18 MPV 9.5 fL (7.4-10.4) 06/25/25 09:18 Neut % (Auto) 69.8 % 06/25/25 09:18 Lymph % (Auto) 21.1 % 06/25/25 09:18 [place] % (Auto) 8.4 % 06/25/25 09:18 Eos % (Auto) 0.1 % 06/25/25 09:18 Baso % (Auto) 0.4 % 06/25/25 09:18 Neut # (Auto) 9.51 10^3/uL (1.8-7.7) H 06/25/25 09:18 Lymph # (Auto) 2.9 10^3/uL (0.8-4.8) 06/25/25 09:18 [place] # (Auto) 1.1 10^3/uL (0.2-0.9) H 06/25/25 09:18 Eos # (Auto) 0.0 10^3/uL (0.0-0.8) 06/25/25 09:18 Baso # (Auto) 0.1 10^3/uL (0.0-0.1) 06/25/25 09:18 Nucleated RBC % (auto) 0 % 06/25/25 09:18 Nucleated RBCs # 0.0 /100WBC 06/25/25 09:18 Sodium 133 mmol/L (136-145) L 06/25/25 09:18 Potassium 3.5 mmol/L (3.5-5.1) 06/25/25 09:18 Chloride 97 mmol/L (98-107) L 06/25/25 09:18 Carbon Dioxide 24 mmol/L (22-29) 06/25/25 09:18 Anion Gap 15.5 (5-19) 06/25/25 09:18 BUN 15 mg/dL (8-23) 06/25/25 09:18 Creatinine 0.8 mg/dL (0.5-0.9) 06/25/25 09:18 GFR Calculation Not Reportable 06/25/25 09:18 Glucose 139 mg/dL (65-115) H 06/25/25 09:18 POC Glucose 146 mg/dL (70-110) H 06/23/25 14:29 Calculated Osmolality 279 mOsm/kg (285-295) L 06/25/25 09:18 Calcium 9.2 mg/dL (8.5-10.5) 06/25/25 09:18 Phosphorus 2.1 mg/dL (2.5-4.5) L 06/23/25 16:24 Magnesium 2.5 mg/dL (1.7-2.3) H 06/23/25 16:24 Total Bilirubin 0.7 mg/dL (0.15-1.2) 06/25/25 09:18 AST 39 U/L (0-32) H 06/25/25 09:18 ALT 16 U/L (0-33) 06/25/25 09:18 Alkaline Phosphatase 80 U/L (35-105) 06/25/25 09:18 Troponin T Baseline 29 ng/L (0-10) H 06/23/25 14:30 Troponin T 120 Minute 20.64 ng/L (0-10) H 06/23/25 16:24 Delta Troponin T -8.36 ABS# (0-10) L 06/23/25 16:24 Troponin T Hi Sens 6Hr 22.66 ng/L (0-10) H 06/23/25 20:45 Troponin T Hi Sens 6Hr Delta -6.34 ng/L (0-12) L 06/23/25 20:45 NT-Pro-B Natriuret Pep 6420 pg/mL (0-450) H 06/24/25 04:41 Total Protein 6.7 g/dL (6.6-8.7) 06/25/25 09:18 Albumin 3.5 g/dL (3.5-5.2) 06/25/25 09:18 Globulin 3.2 g/dL (1.3-4.6) 06/25/25 09:18 Triglycerides 265 mg/dL (0-150) H 06/24/25 04:41 Cholesterol 233 mg/dL (0-200) H 06/24/25 04:41 LDL Cholesterol, Calc 145 mg/dL (50-129) H 06/24/25 04:41 HDL Cholesterol 35 mg/dL (60-100) L 06/24/25 04:41 LDL/HDL Ratio 4.14 RATIO (0.00-3.22) H 06/24/25 04:41 Cholesterol/HDL Ratio 6.66 mg/dL (0.0-4.40) H 06/24/25 04:41 Vitamin B12 1158 pg/mL (232-1245) 06/23/25 14:30 TSH 3.57 uIU/mL (0.27-4.20) 06/23/25 16:24 Urine Color Yellow (Yellow) 06/23/25 15:39 Urine Appearance Clear (CLEAR) 06/23/25 15:39 Urine pH 7.5 (5-7) 06/23/25 15:39 Ur Specific [place] 1.015 (1.005-1.030) 06/23/25 15:39 Urine Protein 1+ (Negative) A 06/23/25 15:39 Urine Glucose (UA) Negative (Normal) 06/23/25 15:39 Urine Ketones Negative (Negative) 06/23/25 15:39 Urine Blood Negative (Negative) 06/23/25 15:39 Urine Nitrate Negative (Negative) 06/23/25 15:39 Urine Bilirubin Negative (Negative) 06/23/25 15:39 Urine Urobilinogen 1.0 mg/dL (Negative) 06/23/25 15:39 Ur Leukocyte Esterase 2+ (Negative) A 06/23/25 15:39 Urine RBC 0-2 /hpf (0-2) 06/23/25 15:39 Urine WBC 51-100 /hpf (0-5) H 06/23/25 15:39 Ur Squamous Epith Cells 0-5 /hpf (0-5) 06/23/25 15:39 Amorphous Sediment Not Reportable 06/23/25 15:39 Urine Bacteria 4+ /hpf (NONE) H 06/23/25 15:39 Hyaline Casts 10.73 /lpf 06/23/25 15:39 Salicylates < 0.3 mg/dL (3-10) L 06/23/25 14:30 Urine Opiates Screen Negative ng/mL (Negative) 06/23/25 15:39 Acetaminophen < 5.0 ug/mL (10-30) L 06/23/25 14:30 Ur Barbiturates Screen Negative ng/mL (Negative) 06/23/25 15:39 Ur Phencyclidine Scrn Negative ng/mL (Negative) 06/23/25 15:39 Ur Amphetamines Screen Negative ng/mL (Negative) 06/23/25 15:39 U Benzodiazepines Scrn Negative ng/mL (Negative) 06/23/25 15:39 Urine Cocaine Screen Negative ng/mL (Negative) 06/23/25 15:39 U Marijuana (THC) Screen Negative ng/mL (Negative) 06/23/25 15:39 Ethyl Alcohol < 10 mg/dL (0-10) 06/23/25 14:30 RPR Nonreactive (Nonreactive) 06/23/25 14:30 Micro: Microbiology 06/23/25 15:39 Urine Culture - Final Urine,Clean Catch Enterobacter cloacae 06/23/25 17:16 Blood Culture - Preliminary Blood NEGATIVE TO DATE 06/23/25 14:30 Blood Culture - Preliminary Blood NEGATIVE TO DATE A&P Assessment and plan 1. Multifocal atrial tachycardia determined by electrocardiography: Review of the patient's EKG showed multifocal atrial rhythm/tachycardia. Since the heart rate is under control, I may hold off on any specific medications at this time. 2. Cardiomyopathy, unspecified type: Patient may be continued on the current medications. Her hemodynamic status seems to be stable. 3. Congestive heart failure, unspecified HF chronicity, unspecified heart failure type: As mentioned above 4. Mixed hyperlipidemia: Her LDL is elevated. I may start her on Lipitor 10 mg p.o. daily 5. Bilateral carotid artery stenosis without cerebral infarction: May continue on the current management. Patient was found to have left ICA stenosis of 72% by CTA in March of last year. A repeat Doppler examination may be appropriate to reevaluate. 6. Benign hypertension: The blood pressure still remains elevated. The antihypertensive medications may be optimized. Plan: For the heart failure, we will try to optimize the GDMT The dose of the losartan may be increased to 50 mg p.o. daily Lipitor 20 mg p.o. daily Other medication may be continued Based on the clinical progress, further management decisions will be made PDMP PDMP Reviewed: Not Reviewed Attestations Medical Necessity Statement*: Patient requires continued hospital stay for close monitoring and further management Coding Level of Care Code Acute Code for Chg Fwd Diagnoses Multifocal atrial tachycardia determined by electrocardiography I47.19 Cardiomyopathy, unspecified type I42.9 Cardiomyopathy type: unspecified Congestive heart failure, unspecified HF chronicity, unspecified heart failure type I50.9 Heart failure chronicity: unspecified Heart failure type: unspecified Mixed hyperlipidemia E78.2 Hyperlipidemia type: mixed hyperlipidemia Bilateral carotid artery stenosis without cerebral infarction I65.23 Benign hypertension I10
[2025-06-25] MEDS: ATORVASTATIN 10 MG TABLET 20 MG PO (22:40)
[2025-06-26] VITALS (7 sets, daily range): BP systolic 117–173; BP diastolic 60–104; PULSE 68–84; RESP 13–15; TEMP 36.1–36.8; O2SAT 94–97
[2025-06-26 04:34] LABS: Hematocrit 43.2 % (36-47); Hemoglobin 14.70 g/dL (11.27-16.99); Mean Corpuscular HGB Conc 34.0 g/dL (30-55); Mean Corpuscular Hemoglobin 30.8 pg (27-33); Mean Corpuscular Volume 90.4 fl (85-98); Nucleated Red Blood Cells % 0 %; Platelet Count 291 10^3/cmm (157-399); Red Blood Count 4.78 10^6/uL (3.85-5.65); White Blood Count 11.91 10^3/uL (3.29-11.43)
[2025-06-26 04:53] LABS: Alanine Aminotransferase 18 U/L (0-33); Albumin Level 3.8 g/dL (3.5-5.2); Alkaline Phosphatase 82 U/L (35-105); Anion Gap 16.8 (5-19); Aspartate Amino Transferase 39 U/L (0-32); Blood Urea Nitrogen 18 mg/dL (8-23); Calcium 9.4 mg/dL (8.5-10.5); Carbon Dioxide 24 mmol/L (22-29); Chloride 102 mmol/L (98-107); Creatinine Clr Calc Pharmacy 44.1943; Globulin 3.6 g/dL (1.3-4.6); Glucose 113 mg/dL (65-115); Osmolality Calculated 291 mOsm/kg (285-295); Potassium 3.8 mmol/L (3.5-5.1); Sodium 139 mmol/L (136-145); Total Protein 7.4 g/dL (6.6-8.7)
--- NOTE | 2025-06-26 07:42 | P.PN_ITS ---
Subjective 2 Subjective: Patient sedated at this time. Seems to be sleeping well Has not been complaining about chest pain or unusual shortness of breath. Medications: Medication Review Details: Current Medications Acetaminophen (Acetaminophen 325 Mg Tablet) 650 mg PO Q6H PRN PRN Reason: Mild/Mod Pain Or Temp >/= 101 Al Hydrox/Mg Hydrox/Simethicone (Xyuu-Cld-Bycirjral-Masoud 30 Ml Udc) 15 ml PO Q6H PRN PRN Reason: INDIGESTION Amlodipine Besylate (Amlodipine 5 Mg Tablet) 10 mg PO DAILY [facility] Last Admin: 06/25/25 08:37 Dose: 10 mg Aspirin (Aspirin 81 Mg Ec Tablet) 81 mg PO DAILY [facility] Last Admin: 06/25/25 08:36 Dose: 81 mg Atorvastatin Calcium (Atorvastatin 10 Mg Tablet) 20 mg PO BEDTIME [facility] Last Admin: 06/25/25 22:40 Dose: 20 mg Bisacodyl (Bisacodyl 5 Mg Tablet) 10 mg PO DAILY PRN; Protocol PRN Reason: Constipation (see protocol) Carvedilol (Carvedilol 6.25 Mg Tablet) 12.5 mg PO BID [facility] Last Admin: 06/25/25 17:24 Dose: 12.5 mg Ceftriaxone Sodium (Ceftriaxone 1,000 Mg Sdv) 1,000 mg IVP Q24H [facility]; Protocol Last Admin: 06/25/25 17:23 Dose: 1,000 mg Famotidine (Famotidine 20 Mg/2 Ml Inj) 10 mg IVP Q12H [facility] Last Admin: 06/25/25 20:26 Dose: 10 mg Haloperidol Lactate (Haloperidol Inj 5 Mg/Ml Inj 1 Ml) 2 mg IM Q6H PRN PRN Reason: AGITATION Last Admin: 06/24/25 23:44 Dose: 2 mg Heparin Sodium (Porcine) (Heparin 5,000 Unit/Ml Inj 1 Ml) 5,000 unit SUBCUT Q12H [facility] Last Admin: 06/25/25 18:12 Dose: 5,000 unit Hydromorphone HCl (Hydromorphone Tab 2 Mg Tablet) 1 mg PO Q6H PRN PRN Reason: SEVERE PAIN Losartan Potassium (Losartan 50 Mg Tablet) 25 mg PO DAILY [facility] Last Admin: 06/25/25 08:35 Dose: 25 mg Magnesium Hydroxide (Magnesium Hydroxide 30 Ml Udc) 30 ml PO DAILY PRN; Protocol PRN Reason: Constipation (see protocol) Potassium Phosphate (Phosphorus 250 Mg Tablet) 250 mg PO BID [facility] Last Admin: 06/25/25 17:24 Dose: 250 mg Spironolactone (Spironolactone 25 Mg Tablet) 12.5 mg PO DAILY [facility] Last Admin: 06/25/25 08:36 Dose: 12.5 mg Vitals/I&O/Wt Last Vital Signs Temp 99.3 F 06/25/25 16:00 Pulse 62 06/25/25 20:00 Resp 16 06/25/25 16:00 BP 143/79 06/26/25 04:00 Pulse Ox 97 06/25/25 16:00 O2 Del Method Room Air 06/25/25 16:00 06/25/25 06/26/25 06/26/25 22:59 06:59 14:59 Intake Total 110 / 410 50 / 460 Output Total 575 / 575 475 / 1050 Balance -465 / -165 -425 / -590 Weight last 48 hrs Weight 120 lb 12.8 oz Weight 129 lb 4.8 oz Physical Exam 2 Narrative: GENERAL: The patient is somewhat drowsy HEENT: No significant pallor, icterus or lymphadenopathy.Oral cavity: There are no mucous membrane lesions. NECK: Trachea appears to be central. No masses noted. No JVD or thyromegaly appreciated. RESPIRATORY: Chest is symmetrical. No intercostals muscle retraction or any accessory muscle activation. There is no chest wall tenderness. Breath sounds are heard bilaterally. No rales or rhonchi heard. No evidence of any consolidation. BREASTS: Deferred. HEART: The heart sounds are normal. No S3 or S4. Short systolic murmur in the left sternal border. No diastolic murmurs. No pericardial rub ABDOMEN: No vessel pulsations or distention. No tenderness. No organomegaly appreciated. Bowel sounds are normally heard. : Deferred. RECTAL: Deferred. LYMPHATIC: No lymphadenopathy noted in the neck. EXTREMITIES: Relatively cold extremities. Pulses are palpable but weak MUSCULOSKELETAL: No acute joint deformities or swelling SKIN: There are no significant rashes or ecchymosis NEUROPSYCHIATRIC: Agitated and confused. No focal motor deficits. Data 06/26/25 04:06 06/26/25 04:06 Other Labs: Laboratory Last Values WBC 11.91 10^3/uL (3.29-11.43) H 06/26/25 04:06 RBC 4.78 10^6/uL (3.85-5.65) 06/26/25 04:06 Hgb 14.70 g/dL (11.27-16.99) 06/26/25 04:06 Hct 43.2 % (36-47) 06/26/25 04:06 MCV 90.4 fl (85-98) 06/26/25 04:06 MCH 30.8 pg (27-33) 06/26/25 04:06 MCHC 34.0 g/dL (30-55) 06/26/25 04:06 RDW 14.0 % (12.1-15.1) 06/26/25 04:06 Plt Count 291 10^3/cmm (157-399) 06/26/25 04:06 MPV 10.3 fL (7.4-10.4) 06/26/25 04:06 Neut % (Auto) 54.6 % 06/26/25 04:06 Lymph % (Auto) 29.4 % 06/26/25 04:06 [place] % (Auto) 13.9 % 06/26/25 04:06 Eos % (Auto) 0.8 % 06/26/25 04:06 Baso % (Auto) 1.0 % 06/26/25 04:06 Neut # (Auto) 6.52 10^3/uL (1.8-7.7) 06/26/25 04:06 Lymph # (Auto) 3.5 10^3/uL (0.8-4.8) 06/26/25 04:06 [place] # (Auto) 1.7 10^3/uL (0.2-0.9) H 06/26/25 04:06 Eos # (Auto) 0.1 10^3/uL (0.0-0.8) 06/26/25 04:06 Baso # (Auto) 0.1 10^3/uL (0.0-0.1) 06/26/25 04:06 Nucleated RBC % (auto) 0 % 06/26/25 04:06 Nucleated RBCs # 0.0 /100WBC 06/26/25 04:06 Sodium 139 mmol/L (136-145) 06/26/25 04:06 Potassium 3.8 mmol/L (3.5-5.1) 06/26/25 04:06 Chloride 102 mmol/L (98-107) 06/26/25 04:06 Carbon Dioxide 24 mmol/L (22-29) 06/26/25 04:06 Anion Gap 16.8 (5-19) 06/26/25 04:06 BUN 18 mg/dL (8-23) 06/26/25 04:06 Creatinine 0.8 mg/dL (0.5-0.9) 06/26/25 04:06 GFR Calculation Not Reportable 06/26/25 04:06 Glucose 113 mg/dL (65-115) 06/26/25 04:06 POC Glucose 146 mg/dL (70-110) H 06/23/25 14:29 Calculated Osmolality 291 mOsm/kg (285-295) 06/26/25 04:06 Calcium 9.4 mg/dL (8.5-10.5) 06/26/25 04:06 Phosphorus 2.1 mg/dL (2.5-4.5) L 06/23/25 16:24 Magnesium 2.5 mg/dL (1.7-2.3) H 06/23/25 16:24 Total Bilirubin 0.6 mg/dL (0.15-1.2) 06/26/25 04:06 AST 39 U/L (0-32) H 06/26/25 04:06 ALT 18 U/L (0-33) 06/26/25 04:06 Alkaline Phosphatase 82 U/L (35-105) 06/26/25 04:06 Troponin T Baseline 29 ng/L (0-10) H 06/23/25 14:30 Troponin T 120 Minute 20.64 ng/L (0-10) H 06/23/25 16:24 Delta Troponin T -8.36 ABS# (0-10) L 06/23/25 16:24 Troponin T Hi Sens 6Hr 22.66 ng/L (0-10) H 06/23/25 20:45 Troponin T Hi Sens 6Hr Delta -6.34 ng/L (0-12) L 06/23/25 20:45 NT-Pro-B Natriuret Pep 6420 pg/mL (0-450) H 06/24/25 04:41 Total Protein 7.4 g/dL (6.6-8.7) 06/26/25 04:06 Albumin 3.8 g/dL (3.5-5.2) 06/26/25 04:06 Globulin 3.6 g/dL (1.3-4.6) 06/26/25 04:06 Triglycerides 265 mg/dL (0-150) H 06/24/25 04:41 Cholesterol 233 mg/dL (0-200) H 06/24/25 04:41 LDL Cholesterol, Calc 145 mg/dL (50-129) H 06/24/25 04:41 HDL Cholesterol 35 mg/dL (60-100) L 06/24/25 04:41 LDL/HDL Ratio 4.14 RATIO (0.00-3.22) H 06/24/25 04:41 Cholesterol/HDL Ratio 6.66 mg/dL (0.0-4.40) H 06/24/25 04:41 Vitamin B12 1158 pg/mL (232-1245) 06/23/25 14:30 TSH 3.57 uIU/mL (0.27-4.20) 06/23/25 16:24 Urine Color Yellow (Yellow) 06/23/25 15:39 Urine Appearance Clear (CLEAR) 06/23/25 15:39 Urine pH 7.5 (5-7) 06/23/25 15:39 Ur Specific [place] 1.015 (1.005-1.030) 06/23/25 15:39 Urine Protein 1+ (Negative) A 06/23/25 15:39 Urine Glucose (UA) Negative (Normal) 06/23/25 15:39 Urine Ketones Negative (Negative) 06/23/25 15:39 Urine Blood Negative (Negative) 06/23/25 15:39 Urine Nitrate Negative (Negative) 06/23/25 15:39 Urine Bilirubin Negative (Negative) 06/23/25 15:39 Urine Urobilinogen 1.0 mg/dL (Negative) 06/23/25 15:39 Ur Leukocyte Esterase 2+ (Negative) A 06/23/25 15:39 Urine RBC 0-2 /hpf (0-2) 06/23/25 15:39 Urine WBC 51-100 /hpf (0-5) H 06/23/25 15:39 Ur Squamous Epith Cells 0-5 /hpf (0-5) 06/23/25 15:39 Amorphous Sediment Not Reportable 06/23/25 15:39 Urine Bacteria 4+ /hpf (NONE) H 06/23/25 15:39 Hyaline Casts 10.73 /lpf 06/23/25 15:39 Salicylates < 0.3 mg/dL (3-10) L 06/23/25 14:30 Urine Opiates Screen Negative ng/mL (Negative) 06/23/25 15:39 Acetaminophen < 5.0 ug/mL (10-30) L 06/23/25 14:30 Ur Barbiturates Screen Negative ng/mL (Negative) 06/23/25 15:39 Ur Phencyclidine Scrn Negative ng/mL (Negative) 06/23/25 15:39 Ur Amphetamines Screen Negative ng/mL (Negative) 06/23/25 15:39 U Benzodiazepines Scrn Negative ng/mL (Negative) 06/23/25 15:39 Urine Cocaine Screen Negative ng/mL (Negative) 06/23/25 15:39 U Marijuana (THC) Screen Negative ng/mL (Negative) 06/23/25 15:39 Ethyl Alcohol < 10 mg/dL (0-10) 06/23/25 14:30 RPR Nonreactive (Nonreactive) 06/23/25 14:30 Micro: Microbiology 06/23/25 15:39 Urine Culture - Final Urine,Clean Catch Enterobacter cloacae A&P Assessment and plan 1. Multifocal atrial tachycardia determined by electrocardiography: Review of the patient's EKG showed multifocal atrial rhythm/tachycardia. Since the heart rate is under control, I may hold off on any specific medications at this time. 2. Cardiomyopathy, unspecified type: Patient may be continued on the current medications. Her hemodynamic status seems to be stable. Try to optimize the GDMT 3. Congestive heart failure, unspecified HF chronicity, unspecified heart failure type: As mentioned above. 4. Mixed hyperlipidemia: Her LDL is elevated. I may start her on Lipitor 10 mg p.o. daily 5. Bilateral carotid artery stenosis without cerebral infarction: May continue on the current management. Patient was found to have left ICA stenosis of 72% by CTA in March of last year. A repeat Doppler examination may be appropriate to reevaluate. Repeat duplex examination revealed progression of the disease on the left. Apparently the family did not want her to have carotid intervention in the past. Need to discuss again with the patient's son to confirm this 6. Benign hypertension: The blood pressure still remains elevated. The antihypertensive medications may be optimized. 7. Alzheimer's dementia with agitation, unspecified dementia severity, unspecified timing of dementia onset: Management as per the primary Plan: May continue other current medications. If the patient's family want to go ahead with carotid intervention, she may require a cardiac catheterization to evaluate the coronary arteries. After discussing with the son, final decision will be made. May continue on the current management for the time being. PDMP PDMP Reviewed: Not Reviewed Attestations 2 Medical Necessity Statement*: Patient requires continued hospital stay for close monitoring and further management Coding Level of Care Code 86465 Diagnoses Multifocal atrial tachycardia determined by electrocardiography I47.19 Cardiomyopathy, unspecified type I42.9 Cardiomyopathy type: unspecified Congestive heart failure, unspecified HF chronicity, unspecified heart failure type I50.9 Heart failure chronicity: unspecified Heart failure type: unspecified Mixed hyperlipidemia E78.2 Hyperlipidemia type: mixed hyperlipidemia Bilateral carotid artery stenosis without cerebral infarction I65.23 Benign hypertension I10 Alzheimer's dementia with agitation, unspecified dementia severity, unspecified timing of dementia onset G30.9; F02.811 Alzheimer's disease onset: unspecified onset Dementia severity: unspecified severity
--- NOTE | 2025-06-26 08:44 | PM.PN ---
Subjective Subjective: patient alert but having on and off agitation episodes likely sun dawning/hyperactive delirium? patient is not oriented to place and time Medications: Medication Review Details: Current Medications Acetaminophen (Acetaminophen 325 Mg Tablet) 650 mg PO Q6H PRN PRN Reason: Mild/Mod Pain Or Temp >/= 101 Al Hydrox/Mg Hydrox/Simethicone (Kzyt-Ftg-Jbmosxfkl-Masoud 30 Ml Udc) 15 ml PO Q6H PRN PRN Reason: INDIGESTION Amlodipine Besylate (Amlodipine 5 Mg Tablet) 10 mg PO DAILY [facility] Last Admin: 06/25/25 08:37 Dose: 10 mg Aspirin (Aspirin 81 Mg Ec Tablet) 81 mg PO DAILY [facility] Last Admin: 06/25/25 08:36 Dose: 81 mg Atorvastatin Calcium (Atorvastatin 10 Mg Tablet) 20 mg PO BEDTIME DEIDRE Last Admin: 06/25/25 22:40 Dose: 20 mg Bisacodyl (Bisacodyl 5 Mg Tablet) 10 mg PO DAILY PRN; Protocol PRN Reason: Constipation (see protocol) Carvedilol (Carvedilol 6.25 Mg Tablet) 12.5 mg PO BID [facility] Last Admin: 06/25/25 17:24 Dose: 12.5 mg Ceftriaxone Sodium (Ceftriaxone 1,000 Mg Sdv) 1,000 mg IVP Q24H DEIDRE; Protocol Last Admin: 06/25/25 17:23 Dose: 1,000 mg Famotidine (Famotidine 20 Mg/2 Ml Inj) 10 mg IVP Q12H DEIDRE Last Admin: 06/25/25 20:26 Dose: 10 mg Haloperidol Lactate (Haloperidol Inj 5 Mg/Ml Inj 1 Ml) 2 mg IM Q6H PRN PRN Reason: AGITATION Last Admin: 06/24/25 23:44 Dose: 2 mg Heparin Sodium (Porcine) (Heparin 5,000 Unit/Ml Inj 1 Ml) 5,000 unit SUBCUT Q12H DEIDRE Last Admin: 06/25/25 18:12 Dose: 5,000 unit Hydromorphone HCl (Hydromorphone Tab 2 Mg Tablet) 1 mg PO Q6H PRN PRN Reason: SEVERE PAIN Losartan Potassium (Losartan 50 Mg Tablet) 25 mg PO DAILY [facility] Last Admin: 06/25/25 08:35 Dose: 25 mg Magnesium Hydroxide (Magnesium Hydroxide 30 Ml Udc) 30 ml PO DAILY PRN; Protocol PRN Reason: Constipation (see protocol) Potassium Phosphate (Phosphorus 250 Mg Tablet) 250 mg PO BID [facility] Last Admin: 06/25/25 17:24 Dose: 250 mg Spironolactone (Spironolactone 25 Mg Tablet) 12.5 mg PO DAILY [facility] Last Admin: 06/25/25 08:36 Dose: 12.5 mg Vitals/I&O/Wt Last Vital Signs Temp 99.3 F 06/25/25 16:00 Pulse 62 06/25/25 20:00 Resp 16 06/25/25 16:00 BP 143/79 06/26/25 04:00 Pulse Ox 97 06/25/25 16:00 O2 Del Method Room Air 06/25/25 16:00 06/25/25 06/26/25 06/26/25 22:59 06:59 14:59 Intake Total 110 / 410 50 / 460 Output Total 575 / 575 475 / 1050 Balance -465 / -165 -425 / -590 Weight last 48 hrs Weight 54.794 kg Weight 58.649 kg Physical Exam Narrative: General: patient seen not oriented to place and time, oriented to self, calm today and not in distress HEENT: Normocephalic, atraumatic, EOMI, breathing at room air Cardio: normal rate rhythm, normal S1-S2, no murmurs rubs gallops, JVD_normal Respiratory: Good bilateral air entry, no wheezes no rhonchi appreciated GI: Abdomen soft, nontender, nondistended, normoactive bowel sounds present all 4 quadrants, Neuro:grossly unremarkable Behavior: cooperative and calm Extremities: Pulses 2+, no edema, no cyanosis Skin: Visible skin intact, no rashes Data 06/26/25 04:06 06/26/25 04:06 Micro: Microbiology 06/23/25 15:39 Urine Culture - Final Urine,Clean Catch Enterobacter cloacae A&P Assessment and plan 1. Congestive heart failure, unspecified HF chronicity, unspecified heart failure type: 2. Urinary tract infection: 3. Atrial fibrillation, unspecified type: 4. Chronic dementia: 5. Delirium: 6. Mixed hyperlipidemia: 7. Lumbar radiculopathy: 8. Lumbar spinal stenosis: 9. Bilateral carotid artery stenosis without cerebral infarction: 10. Pulmonary hypertension: Plan: UTI: - Urine cultures showed gram negative rods based on sensitivity - Ceftriaxone 1 g daily to continue - if patient spikes fever then consider blood cultures repeat and escalation of abx - Maintain intake and output - Maintain adequate hydration New-onset atrial fibrillation: Chadsvasc >2, HASBLED: Around 2, risk of fall, non valvular At fib -Currently heart rate controlled, echo showed CHF with reduced EF from 71% to 33%, cardiology was consulted and after thorough discussion with the patient's son for all the risk and benefits, the son opted to keep medical management and not to go for any intervention by cardioversion or device insertion for atrial fibrillation. - Continue aspirin, anticoagulation not started although the Ian Vascor is high however the patient is at high risk of bleeding due to falls and agitation. - On heart failure medications with BB, DANG-i and spironolactone at the time with small dose carvedilol 12.5 twice daily and monitor HR and BP, if less than 60 HR and systolic BP <100mmhg to hold it, to monitor her BP and electrolytes - Continue losartan 25mg daily - Continue spironolactone 12.5mg daily - titrate doses of HF medications as per tolerability - consider SGLT2 inhibitors as outpatient if no contraindications ( currently having UTI therefore to hold it) -Troponin was not having remarkable rise and telemetry, showing at fib -Monitor vitals Left ICA stenosis: 70%-99% CTA cardio consult further after CTA Hypertension: Continue amlodipine increase to 10 mg Keep the patient calm since her agitation can also increase blood pressure Monitor blood pressure Altered mentation: acute encephalopathy secondary to UTI, metabolic encephalopathy/toxic encephalopathy Likely secondary to UTI and continue on abx Neuro vitals to monitor Fall risk assessment and aspiration precautions haldol PRN as needed consulted psych for better management of delirium Gait and balance concerns: patient is disoriented on and off, the patient has imbalance with risk of falls when she walks and concerns of head trauma or further complications, patient need safe disposition continue OT/PT GERD: Famotidine and Maalox Chronic dementia: TSH, vitamin B12 syphilis was unremarkable CT head did not showed acute insult Consider memantine/donepezil as inpatient versus outpatient with PCP follow-up Left hip pain/lumbar radiculopathy Adequate analgesia VTE: full dose enoxaparin Diet: Cardiac diet disposition: group home PDMP PDMP Reviewed: Not Reviewed Attestations Medical Necessity Statement*: the patient will stay further considering patient having new CHF, at fib, delirium and safe disposition Time Spent in Patient Care: 16 - 35 minutes (>than 50% of time spent in counselling and/or direct pt care on unit). Other Attestations: Patient condition has been discussed at length with the patient/family, I have independently reviewed the chart labs imaging and diagnostics and EKG. the goals of care and code status with the patient/family/NOK/legal rental representative, and documented accordingly. The patient/family has been informed about the current condition and further plan of care. Agreed with the plan of care and understood without any language barrier. This documentation was created by [email or web address] orthopedic radiologic technologist software. Every effort was made to ensure accuracy of orthopedic radiologic technologist. Any obvious errors or omissions should be clarified with the author of the document. Coding Level of Care Code 38012 Diagnoses Congestive heart failure, unspecified HF chronicity, unspecified heart failure type I50.9 Heart failure chronicity: unspecified Heart failure type: unspecified Urinary tract infection N39.0 Atrial fibrillation, unspecified type I48.91 Atrial fibrillation type: unspecified Chronic dementia F03.90 Delirium R41.0 Mixed hyperlipidemia E78.2 Hyperlipidemia type: mixed hyperlipidemia Lumbar radiculopathy M54.16 Lumbar spinal stenosis M48.061 Bilateral carotid artery stenosis without cerebral infarction I65.23 Pulmonary hypertension I27.20
[2025-06-26] MEDS: heparin 5,000 unit/mL INJ 1 mL 5000 UNIT SUBCUT ×2 (09:25→20:48)
--- NOTE | 2025-06-26 09:36 | PC.CHAP ---
Pastoral Care Encounter/Spiritual Assessment Type of Contact [] Declined top inventory control executive visit [] Patient/Family/Request visit [] Outpatient visit [] Follow-up visit [] Physician referral [] Code/Alert [] Routine visit [] Staff referral [] Actively dying [x] Patient sleeping [] Family support [] [] Out of room [] Palliative care [] [] Receiving care in room [] Pre-surgical visit [] Trauma [] Long length of stay [] ICU visit [] Other: Relational/Emotional Strength [] Patient feels connected with others/family/visitors/staff [] Distress [] Loneliness/isolation [] Abandonment Spirituality of Patient [] Person of Kylie [] Attends Scientology of their Kylie [] Believes in Prayer [] Reads Bible or Islam materials [] There are Spiritual issues to be addressed Inventory Clerk Interventions [] Prayer [] Active listening [] Non-anxious presence [] Spiritual/emotional support [] Crisis/trauma care [] Spiritual counseling [] Bereavement support [] Provided bereavement packet [] Provided Bible/devotional materials [] Provided toy/stuffed animal, coloring book to patient or family member [] Provided Communion [] Anointing/[place] [] Salvation [] Completed spiritual assessment [] Other: Impact on Illness or Injury [] Angry [] Fearful [] Anxious [] Often cries [] Exhaustion [] Unable to work [] Unable to attend religious [] Unable to walk/stand [] Unable to read [] Unable to drive [] Unable to eat/drink [] Unable to sleep [] Unable to be with family [] Patient intubated [] Other: Summary Time spent with patient
--- NOTE | 2025-06-26 13:30 | PC.NURSE ---
Provider is updated that patient is feeling nauseated. Provider ordered zofran IVP. Order entered.
[2025-06-26] MEDS: ondansetron 2 mg/ML SDV 2 mL 4 MG IVP (13:38)
[2025-06-26] MEDS: cefTRIAXone 1,000 mg SDV 1000 MG IVP (17:49)
[2025-06-26] MEDS: ATORVASTATIN 10 MG TABLET 20 MG PO (20:48)
--- NOTE | 2025-06-26 20:58 | P.NPUPN_ITS ---
Subjective NPU 2 Subjective: Patient is an 79-year-old female with dementia seen today on the CSU. The patient was an extremely poor historian and unable to provide any information. She was unable to describe her whereabouts stating that she was here with her on a mission but was unable to describe her current location. Mental Status Exam 2 MSE Comments: White female appearing her stated age who was alert and oriented to person only. She had repeatedly attempted to strip off the covers for some unspecified reason. Her speech was somewhat productive but decreased in volume and halting at times. Her mood was described as okay. Her affect was flat. Her thought process was nonlinear and did not not goal oriented. She did not endorse any thoughts of hurting herself or others. She was confused and did not actively appear to be responding to internal stimuli. She had significant word finding issues with significant anomia and apraxia appreciated. Her attention span was impaired. Her insight is impaired. Her judgment is impaired. Her impulse control appeared poor. Vitals/I&O/Wt Last Vital Signs Temp 96.9 F L 06/26/25 11:48 Pulse 79 06/26/25 11:48 Resp 15 06/26/25 11:48 BP 142/85 06/26/25 16:00 Pulse Ox 94 06/26/25 11:48 O2 Del Method Room Air 06/25/25 16:00 06/26/25 06/26/25 06/26/25 06:59 14:59 22:59 Intake Total 50 / 460 600 / 600 60 / 660 Output Total 475 / 1050 Balance -425 / -590 600 / 600 60 / 660 Weight last 48 hrs Weight 54.794 kg Weight 58.649 kg Data NPU 06/26/25 04:06 06/26/25 04:06 A&P Assessment and plan 1. Dementia, unspecified, with behavioral disturbance: Plan: 1. This patient will require placement in Dementia unit. She is unable to manage care for herself and unable to make informed decisions regarding her care. 2. Consider use of Risperidal .25mg bid for agitation 3. Will follow. PDMP PDMP Reviewed: Not Reviewed Attestations NPU 2 Medical Necessity Statement*: Not applicable, continue medical stay at this time. Coding Level of Care Code Acute Code for [facility] Diagnoses Dementia, unspecified, with behavioral disturbance F03.918
[2025-06-27] VITALS (7 sets, daily range): BP systolic 100–153; BP diastolic 56–85; PULSE 77–89; RESP 17–24; TEMP 36.2–36.9; O2SAT 93–100
[2025-06-27 03:33] LABS: Hematocrit 40.4 % (36-47); Hemoglobin 13.20 g/dL (11.27-16.99); Mean Corpuscular HGB Conc 32.7 g/dL (30-55); Mean Corpuscular Hemoglobin 30.0 pg (27-33); Mean Corpuscular Volume 91.8 fl (85-98); Nucleated Red Blood Cells % 0 %; Platelet Count 253 10^3/cmm (157-399); Red Blood Count 4.40 10^6/uL (3.85-5.65); White Blood Count 11.44 10^3/uL (3.29-11.43)
[2025-06-27 03:59] LABS: Alanine Aminotransferase 16 U/L (0-33); Albumin Level 3.3 g/dL (3.5-5.2); Alkaline Phosphatase 76 U/L (35-105); Anion Gap 12.3 (5-19); Aspartate Amino Transferase 28 U/L (0-32); Blood Urea Nitrogen 18 mg/dL (8-23); Calcium 9.2 mg/dL (8.5-10.5); Carbon Dioxide 27 mmol/L (22-29); Chloride 101 mmol/L (98-107); Creatinine Clr Calc Pharmacy 42.8518; Globulin 3.2 g/dL (1.3-4.6); Glucose 111 mg/dL (65-115); Osmolality Calculated 287 mOsm/kg (285-295); Potassium 3.3 mmol/L (3.5-5.1); Sodium 137 mmol/L (136-145); Total Protein 6.5 g/dL (6.6-8.7)
[2025-06-27] MEDS: heparin 5,000 unit/mL INJ 1 mL 5000 UNIT SUBCUT (09:07)
--- NOTE | 2025-06-27 11:30 | PC.NURSE ---
Son Marcos at bedside wanting patient to be discharged home in his care instead of awaiting acceptance at SNF Provider notified
--- NOTE | 2025-06-27 13:33 | PM.DCS ---
Discharge Providers Date of Admission: 06/24/25 19:17 Date of Discharge: June 27, 2025 Attending Provider at Admission: West Dudley MD Attending Provider at Discharge: Loretta Lowery MD Primary Care Provider: Jackson Yi MD Diagnoses at Discharge Discharge Diagnosis 1. Acute cystitis without hematuria: Details from hospital stay: enterobacter cloacae 2. Acute on chronic systolic congestive heart failure: Details from hospital stay: new diagnosis this stay, medical management 3. Paroxysmal atrial fibrillation: Details from hospital stay: new finding this stay, medical management, no anticoagulation by preference/fall risk 4. Dementia of Alzheimer's type with behavioral disturbance: Details from hospital stay: riperdal at bedtime started with risk of stroke/vascular event discussed with son 5. Pulmonary hypertension: Details from hospital stay: related to chf, known to have primary hypertension 6. Carotid stenosis, left: Details from hospital stay: medical management 7. Gait disturbance: Details from hospital stay: standby/minimum assist,, full weight bearing, ambulated 325 feet day of discharge, limiting factor confusion and focus, easy to redirect, needs continuous supervision for safety 8. Toxic metabolic encephalopathy: Reason for Visit Reason for Visit: N/V loss of consciousness Brief History: The patient is poor historian as she has mild cognitive impairment versus altered mentation which could be acute or acute on chronic. Possible progressive memory deterioration. The history is unreliable and taken from the retrospective notes This patient was transported to the emergency department by her son. He states that they were driving along today and she seemed to be very slow to respond and then would not respond at all for short period of time and then would be slow again. He states that she fluctuated in and out of levels of consciousness. He is unclear certain of what might be contributing to this. He states he has control of her medications and she does not have any sedating medications that he is aware. She does not use alcohol etc. She has not been recently ill with any other conditions. No history of diabetes etc. No trauma history known. She has not been recently ill with fevers or chills nausea vomiting or diarrhea etc. He states that she tends not to drink as much fluid as he thinks she should. He states that she has not complained of chest pain or shortness of breath or other symptoms. When questioned she denies any pain at this time. She does have a history of mild dementia and both she and her son live in the same home now. Hospital Course Hospital Course Mrs. Nye was admitted to medical service. For urinary tract infection, she was started on Rocephin. Urine culture grew Enterobacter cloacae though only with 30 to 40 thousand CFUs. At discharge will complete 3 days of Bactrim. Contribution to overall presentation unclear. For atrial fibrillation and evidence of heart failure, cardiology was consulted. Echocardiogram showed an ejection fraction of 33% down from prior. She was started on carvedilol, losartan and spironolactone in addition to usual amlodipine. At this time plan is for medical management. Will continue aspirin therapy. Consideration of anticoagulation discussed with son and making an informed decision based on prior experiences anticoagulation was not prescribed due to preference and risk of bleeding from falls secondary to comorbid conditions. BNP during the hospital stay was 6420. Cardiac enzymes were elevated and had a downward trend suggesting potential for cardiac ischemia occurring in the setting of the heart failure and atrial fibrillation, type II process. Given plan for medical management no further cardiac evaluation was pursued. Carotid evaluation revealed left carotid stenosis. Current recommendation is for medical management. Statin therapy was initiated during the hospital stay but given advanced age and dementia and other cardiac medications also introduced at this time I have not continued statin therapy at discharge as I am not sure that there is long-term benefit for her whereas other cardiac medications should provide symptomatic improvement. Total cholesterol was elevated at 233 with LDL 145 and HDL low at 35. Can discuss with primary care provider as needed on an outpatient basis. In terms of patient's dementia it was felt to be severe with behavioral disturbance related to Alzheimer's. Laboratory studies were checked with normal TSH, normal B12 level, a few abnormal electrolytes that were replaced/addressed. Clinically felt to have a toxic metabolic encephalopathy on top of dementia. With treatment of other issues she did have some improvement but continued to have behavioral disturbance. Received some as needed antipsychotics in the form of Haldol and was ultimately evaluated by psychiatry and started on low-dose of Risperdal with some improvement though continued to be quite confused, fixated on times in the past, requiring frequent redirection. Reviewed with family potential risk associated with antipsychotics in the setting of dementia including stroke, vascular event up to and including possibility of , pointing out that sometimes this has to be balanced with quality of life. Son stated that he would read further information about it and make decision. She did receive 3 doses while here. Son felt that she may do better in the home setting and was eager to get her discharged home. A CT of the head was done during the hospital stay. She has a history of hypertension chronically treated with amlodipine low-dose. During hospital stay dosing of amlodipine was increased but at discharge with other new medications added I did continue her previous dose. Will need follow-up of blood pressure, renal function and overall tolerance of the medications that have been added. Patient complained of some left hip pain while here and is known to have a lumbar radiculopathy. Pain medications were offered during the hospital stay. I did not add any new pain management upon discharge. In terms of gait disturbance some of this was related to chronic pain. She required frequent redirection with therapy but was able to ambulate 325 feet on the day of discharge with minimal assist though did require constant supervision during the process for redirection and such. It was felt patient could not live alone and fortunately she is with her son. If at some point in time she is not able to reside at home she would most likely need a dementia unit or similar arrangement. At the time of discharge patient was able to talk but continued to be confused to a degree. She was cooperative during my evaluation. Lungs were clear when she had a regular rhythm. No distal pitting edema. Gar catheter that was in place during the hospital stay was removed the day of discharge. Discharge Data Studies Completed and Pending Completed Studies During Hospitalization Category Date Time Status CT head wo con* [id number] Stat Cat Scan 06/23/25 14:41 Completed XR chest 1V portable [id number] Stat Exams 06/23/25 14:31 Completed CV carotid duplex BI* [id number] Routine Ultrasound 06/25/25 18:29 Completed CV. echo complete* [id number] Routine Ultrasound 06/24/25 17:56 Completed Pending at discharge Category Date Time Status Blood Culture Stat Lab 06/23/25 17:16 Results Radiology Impressions Chest X-Ray 06/23/25 14:31 IMPRESSION: No acute findings. Head CT 06/23/25 14:41 IMPRESSION: 1. No acute findings noted 2. Cerebral atrophy with chronic ischemic changes noted Laboratory Results WBC 11.44 10^3/uL (3.29-11.43) H 06/27/25 03:25 RBC 4.40 10^6/uL (3.85-5.65) 06/27/25 03:25 Hgb 13.20 g/dL (11.27-16.99) 06/27/25 03:25 Hct 40.4 % (36-47) 06/27/25 03:25 MCV 91.8 fl (85-98) 06/27/25 03:25 MCH 30.0 pg (27-33) 06/27/25 03: MCHC 32.7 g/dL (30-55) 06/27/25 03:25 RDW 14.0 % (12.1-15.1) 06/27/25 03:25 Plt Count 253 10^3/cmm (157-399) 06/27/25 03:25 MPV 9.4 fL (7.4-10.4) 06/27/25 03:25 Neut % (Auto) 52.5 % 06/27/25 03:25 Lymph % (Auto) 30.5 % 06/27/25 03:25 [place]ton % (Auto) 13.9 % 06/27/25 03:25 Eos % (Auto) 1.8 % 06/27/25 03:25 Baso % (Auto) 1.0 % 06/27/25 03:25 Neut # (Auto) 6.01 10^3/uL (1.8-7.7) 06/27/25 03:25 Lymph # (Auto) 3.5 10^3/uL (0.8-4.8) 06/27/25 03:25 Charlton # (Auto) 1.6 10^3/uL (0.2-0.9) H 06/27/25 03:25 Eos # (Auto) 0.2 10^3/uL (0.0-0.8) 06/27/25 03:25 Baso # (Auto) 0.1 10^3/uL (0.0-0.1) 06/27/25 03:25 Nucleated RBC % (auto) 0 % 06/27/25 03:25 Nucleated RBCs # 0.0 /100WBC 06/27/25 03:25 Sodium 137 mmol/L (136-145) 06/27/25 03:25 Potassium 3.3 mmol/L (3.5-5.1) L 06/27/25 03:25 Chloride 101 mmol/L (98-107) 06/27/25 03:25 Carbon Dioxide 27 mmol/L (22-29) 06/27/25 03:25 Anion Gap 12.3 (5-19) 06/27/25 03:25 BUN 18 mg/dL (8-23) 06/27/25 03:25 Creatinine 0.7 mg/dL (0.5-0.9) 06/27/25 03:25 GFR Calculation Not Reportable 06/27/25 03:25 Glucose 111 mg/dL (65-115) 06/27/25 03:25 POC Glucose 146 mg/dL (70-110) H 06/23/25 14:29 Calculated Osmolality 287 mOsm/kg (285-295) 06/27/25 03:25 Calcium 9.2 mg/dL (8.5-10.5) 06/27/25 03:25 Phosphorus 2.1 mg/dL (2.5-4.5) L 06/23/25 16:24 Magnesium 2.5 mg/dL (1.7-2.3) H 06/23/25 16:24 Total Bilirubin 0.5 mg/dL (0.15-1.2) 06/27/25 03:25 AST 28 U/L (0-32) 06/27/25 03:25 ALT 16 U/L (0-33) 06/27/25 03:25 Alkaline Phosphatase 76 U/L (35-105) 06/27/25 03:25 Troponin T Baseline 29 ng/L (0-10) H 06/23/25 14:30 Troponin T 120 Minute 20.64 ng/L (0-10) H 06/23/25 16:24 Delta Troponin T -8.36 ABS# (0-10) L 06/23/25 16:24 Troponin T Hi Sens 6Hr 22.66 ng/L (0-10) H 06/23/25 20:45 Troponin T Hi Sens 6Hr Delta -6.34 ng/L (0-12) L 06/23/25 20:45 NT-Pro-B Natriuret Pep 6420 pg/mL (0-450) H 06/24/25 04:41 Total Protein 6.5 g/dL (6.6-8.7) L 06/27/25 03:25 Albumin 3.3 g/dL (3.5-5.2) L 06/27/25 03:25 Globulin 3.2 g/dL (1.3-4.6) 06/27/25 03:25 Triglycerides 265 mg/dL (0-150) H 06/24/25 04:41 Cholesterol 233 mg/dL (0-200) H 06/24/25 04:41 LDL Cholesterol, Calc 145 mg/dL (50-129) H 06/24/25 04:41 HDL Cholesterol 35 mg/dL (60-100) L 06/24/25 04:41 LDL/HDL Ratio 4.14 RATIO (0.00-3.22) H 06/24/25 04:41 Cholesterol/HDL Ratio 6.66 mg/dL (0.0-4.40) H 06/24/25 04:41 Vitamin B12 1158 pg/mL (232-1245) 06/23/25 14:30 TSH 3.57 uIU/mL (0.27-4.20) 06/23/25 16:24 Urine Color Yellow (Yellow) 06/23/25 15:39 Urine Appearance Clear (CLEAR) 06/23/25 15:39 Urine pH 7.5 (5-7) 06/23/25 15:39 Ur Specific [place] 1.015 (1.005-1.030) 06/23/25 15:39 Urine Protein 1+ (Negative) A 06/23/25 15:39 Urine Glucose (UA) Negative (Normal) 06/23/25 15:39 Urine Ketones Negative (Negative) 06/23/25 15:39 Urine Blood Negative (Negative) 06/23/25 15:39 Urine Nitrate Negative (Negative) 06/23/25 15:39 Urine Bilirubin Negative (Negative) 06/23/25 15:39 Urine Urobilinogen 1.0 mg/dL (Negative) 06/23/25 15:39 Ur Leukocyte Esterase 2+ (Negative) A 06/23/25 15:39 Urine RBC 0-2 /hpf (0-2) 06/23/25 15:39 Urine WBC 51-100 /hpf (0-5) H 06/23/25 15:39 Ur Squamous Epith Cells 0-5 /hpf (0-5) 06/23/25 15:39 Amorphous Sediment Not Reportable 06/23/25 15:39 Urine Bacteria 4+ /hpf (NONE) H 06/23/25 15:39 Hyaline Casts 10.73 /lpf 06/23/25 15:39 Salicylates < 0.3 mg/dL (3-10) L 06/23/25 14:30 Urine Opiates Screen Negative ng/mL (Negative) 06/23/25 15:39 Acetaminophen < 5.0 ug/mL (10-30) L 06/23/25 14:30 Ur Barbiturates Screen Negative ng/mL (Negative) 06/23/25 15:39 Ur Phencyclidine Scrn Negative ng/mL (Negative) 06/23/25 15:39 Ur Amphetamines Screen Negative ng/mL (Negative) 06/23/25 15:39 U Benzodiazepines Scrn Negative ng/mL (Negative) 06/23/25 15:39 Urine Cocaine Screen Negative ng/mL (Negative) 06/23/25 15:39 U Marijuana (THC) Screen Negative ng/mL (Negative) 06/23/25 15:39 Ethyl Alcohol < 10 mg/dL (0-10) 06/23/25 14:30 RPR Nonreactive (Nonreactive) 06/23/25 14:30 Vitals Last Vital Signs Temp 98.5 F 06/27/25 12:00 Pulse 81 06/27/25 12:00 Resp 20 H 06/27/25 12:00 BP 153/85 06/27/25 12:00 Pulse Ox 97 06/27/25 12:00 O2 Del Method Room Air 06/27/25 12:00 Discharge Plan Discharge Patient Disposition: Home Condition: Stable Prescriptions: New sulfamethoxazole-trimethoprim [Bactrim DS] 800-160 mg tablet 1 tab PO BID 3 Days Qty: 6 0RF aspirin 81 mg Tablet,Delayed Release (Dr/Ec) 81 mg PO DAILY Qty: 30 0RF risperidone 0.25 mg Tablet 0.25 mg PO BEDTIME PRN (Reason: agitation) Qty: 30 0RF losartan 50 mg Tablet 25 mg PO DAILY Qty: 30 1RF carvedilol 6.25 mg Tablet 12.5 mg PO BID Qty: 60 1RF spironolactone 25 mg tablet 12.5 mg PO DAILY Qty: 15 1RF Continued amlodipine 2.5 mg tablet 2.5 mg PO DAILY magnesium hydroxide [Milk of Magnesia] 400 mg/5 mL Suspension 30 ml PO QPM PRN (Reason: Constipation) bismuth subsalicylate [Pepto-Bismol] 262 mg/15 mL Suspension 262 mg PO DAILY PRN (Reason: Diarrhea) Fleet Enema 19-7 gram/118 mL Enema 118 ml VA DAILY PRN (Reason: Constipation) Ex-Lax Maximum Strength 25 mg Tablet 25 mg PO DAILY PRN (Reason: Constipation) brimonidine [Alphagan P] 0.1 % drops 1 drp ophthalmic (eye) BID mupirocin 2 % ointment See Rx Instructions .ROUTE .COMPLEX Rx Instructions: APPLY A SMALL AMOUNT OF OINTMENT TOPICALLY TO AFFECTED AREA THREE TIMES DAILY. Discontinued magnesium citrate [Citrate of Magnesia] Solution 60 ml PO BID Qty: 296 0RF Discharge Order = DC NOW: Discharge Order (Routine); Ordered 06/27/25 Ordered By: Loretta Lowery Referrals: Jackson Yi MD [Primary Care Provider, [facility]] - 07/03/25 3:30 pm Referral Note: post discharge follow up for cognitive concerns Discharge Diet: Advance as tolerated Discharge Activity: Resume usual activity Patient Instructions: Sulfamethoxazole/Trimethoprim (By mouth), Spironolactone (By mouth), Aspirin (By mouth), Risperidone (By mouth), Losartan (By mouth), Carvedilol (By mouth), Heart Failure (DC), A-fib (Atrial Fibrillation) (DC), Urinary Tract Infection in Women (DC), Altered Mental Status (ED), CHF Stoplight, Opioid Safety, Patient Portal & [employer] Instructions Activity Restrictions/Additional Instructions: You presented to the emergency room with nausea and vomiting, change in mental status and loss of consciousness. This happened quite quickly based on available history. Workup in the emergency room showed evidence of urinary tract infection, new onset atrial fibrillation with rapid ventricular response as well as findings concerning for newly identified heart failure. For urinary tract infection you were treated with Rocephin in the hospital with 3-day prescription for Bactrim at discharge. Your echocardiogram showed an ejection fraction of 30%, down from prior studies showing ejection fraction greater than 60%. After discussion with care providers, decision was made for medical management. Carvedilol, losartan, and spironolactone were added for management of both heart rate and heart failure. Findings of left internal carotid stenosis identified and with this plus the cardiac abnormalities aspirin therapy has also been added. After informed discussion regarding anticoagulation, decision made not to fully anticoagulate given risk of bleeding and preference. There were times during the hospital stay you were quite confused and agitated. Psychiatry was consulted and recommended initiation of low-dose Risperdal at bedtime. This medication has an increased risk of stroke and dementia patients. We discussed risk versus benefits and that this medication could be used if needed. Continue discussions with primary care provider particularly after seeing how you do with return to normal environment. Discharge Attestations Time Spent in Discharge Care*: greater than 30 min Specific Discharge Activities: educating and/or supporting family/caregiver, discussing with adult protective caseworker/social workers/dc planners, documenting/other paperwork and evaluating patient/reviewing data Status at Discharge: Cognitive status at discharge: moderately impaired cognition, Behavioral status at discharge: can be uncooperative, Functional status at discharge: other assisted ambulation, Overall status at discharge: patient is not back to baseline Quality Metrics Clinical Quality Measures [ No reported AMI, CVA or VTE this stay] Coding Level of Care Code 22646 Diagnoses Acute cystitis without hematuria N30.00 Acute on chronic systolic congestive heart failure I50.23 Paroxysmal atrial fibrillation I48.0 Dementia of Alzheimer's type with behavioral disturbance G30.9; F02.818 Pulmonary hypertension I27.20 Carotid stenosis, left I65.22 Gait disturbance R26.9 Toxic metabolic encephalopathy G92.8
--- NOTE | 2025-06-27 14:12 | PC.NURSE ---
discharge instructions given and explained to pt's son.he verb understanding of instructions.discharged at this time via w/c to exit.son to drive pt home.
--- NOTE | 2025-06-27 15:12 | PC.SOCIAL ---
IMM UPDATED IMM dated and initialed copy given to patient and copy placed in chart.
--- NOTE | 2025-06-27 15:29 | PC.NURSE ---
pt's son arrived to unit this morning at approximately 0930.He stated that he was here to pick his mother up to take her home.He insisted that the doctor yesterday said she would be all ready to go this morning .No discharge orders were in record as yet.case management notes indicated that pt was to be discharged to a nursing care facility.Pt remains very confused.Requires one on one surveillance.Is full care (heavy assist with toileting,eating,walking,bathing,etc).This RN asked pt's son if he was capable of caring for pt at home.He insisted he could and continued to remain disgruntled that discharge orders were not available.He insisted that i call dr greenwood at his home (he is off work today). Dr Lowery notified (not the same doctor as yesterday)..that son was here to pick pt up.Pt's son again disgruntled after doctor did not show immediately.At approx 11:00 son requested to speak to the patient advocacy person.this nurse contacted unit support representative,Tamar Jacome.She came to speak with pt's son.Dr Lowery spoke at length with son regarding hospital course,discharge care..pt's son verb understanding.He insisted pt be discharged home.
== END 2025-06-27 14:13 | disposition home or self-care (01) | DRG 689 ==
LOC: ER 17:14 → MEDSURG 17:19 → CSU 06-24 18:00
PROVIDERS: Internal Medicine Cardiovascular Disease; Admitting Provider Student in an Organized Health Care Education/Training Program; Emergency Provider Emergency Medicine; PCP Family Medicine; Visit Provider Hospitalist
DX: N30.00 Acute cystitis without hematuria (principal); G93.41 Metabolic encephalopathy; I50.23 Acute on chronic systolic (congestive) heart failure; F02.C18 Dementia in other diseases classified elsewhere, severe, with other behavioral disturbance; I42.9 Cardiomyopathy, unspecified; F05 Delirium due to known physiological condition; B96.89 Other specified bacterial agents as the cause of diseases classified elsewhere; I11.0 Hypertensive heart disease with heart failure; I48.0 Paroxysmal atrial fibrillation; G30.9 Alzheimer's disease, unspecified; I27.20 Pulmonary hypertension, unspecified; I65.22 Occlusion and stenosis of left carotid artery; R26.9 Unspecified abnormalities of gait and mobility; G31.84 Mild cognitive impairment of uncertain or unknown etiology; G89.29 Other chronic pain; K21.9 Gastro-esophageal reflux disease without esophagitis; E78.5 Hyperlipidemia, unspecified; Z66 Do not resuscitate; M48.061 Spinal stenosis, lumbar region without neurogenic claudication; M54.16 Radiculopathy, lumbar region; M25.552 Pain in left hip; R94.31 Abnormal electrocardiogram [ECG] [EKG]; J42 Unspecified chronic bronchitis; Z79.891 Long term (current) use of opiate analgesic; Z86.73 Personal history of transient ischemic attack (TIA), and cerebral infarction without residual deficits; Z92.3 Personal history of irradiation; Z85.3 Personal history of malignant neoplasm of breast
CPT/HCPCS: 36415; 36416; 70450; 71045; 80053; 80061; 80306; 80307; 81001; 82607; 82962; 83735; 83880; 84100; 84443; 84484; 85025; 86592; 87040; 87077; 87086; 87186; 93005; 93306; 93880; 96372; 96374; 96375; 97116; 97162; 97165; 97535; 99285; G0378; J0612; J0696; J1630; J1644; J1650; J2405; J3490; J7120; J9999

== ENCOUNTER 2025-06-27 16:22 | Emergency (ER) | payer MEDICARE, SELFPAY ==
[2025-06-27] VITALS (13 sets, daily range): BP systolic 117–170; BP diastolic 58–81; PULSE 80–104; RESP 18–20; TEMP 37.1; O2SAT 90–98
--- OUTSIDE RECORDS SUMMARY | 2025-06-27 16:26 | XMS_ITS | Clinical Summary ---
Author Organization [facility] Address [address] [place] [address] Phone Care Team Providers Care Dry Cell Tester Name Role Phone Unavailable Primary Care Provider [...] 2018 INFLUENZA VACCINE (#1) 2025 [place] [id number] [facility]
--- OUTSIDE RECORDS SUMMARY | 2025-06-27 16:26 | XMS_ITS | Encounter Summary ---
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
--- OUTSIDE RECORDS SUMMARY | 2025-06-27 16:26 | XMS_ITS | Encounter Summary ---
Author Organization [facility] Address [address] [place] [address] Care Team Providers Care Business Transformation Manager Name Role Phone Unavailable Primary Care Provider Unavailabl e Reason for Referral * PET Scan (Urgent) - Closed Specialty Diagnoses / Procedures Referred By Deborah rasheed Referred To Contact Radiology Diagnoses Lymphoma, non-Hodgkin's (CMS/HCC) Procedures PET TUMOR IMG W CT SKL BSE MID THG Deana Barahona FNP [address] [place] [address] Phone: tel: fax: [facility] Nuclear Medicine [address] [place] [id number] Phone: tel: fax: Referral ID Status Reason Start Date Expiration Date V isits Requested Visits Authorized [id number] Closed [facility] to Schedule 08/12/2020 10/10/2020 1 1 Encounter Details Date Type Department Care Team (Late st Contact Info) Description 06/27/2020 Ancillary Orders [facility] Pre-Registration [place] CALL TO MAKE APPOINTMENT ONLY [address] [place] [address] Deana Barahona FNP [address] [place] [address] Lymphoma, non-Hodgkin's (CMS/HCC) Social History [...] Accreditation of Nuclear Medicine Laboratories (IAC Nuclear/PET). [id number] Narrative 08/15/2020 5:53 PM CDT Radionuclide PET Metabolic Tumor Imaging with CT Attenuation Correction and Anatomic Localization from Skull Base to Mid Thigh: Radiopharmaceutical: [id number] Dose: 13.9 mCi right AC IV Time of Injection: 14:40 hrs Clinical Indication: Initial treatment strategy to evaluate non-Hodgkin lymphoma. FDG ([id number]) PET imaging was performed at 15:40 hrs [...] from Skull Base to Mid Thigh: Radiopharmaceutical: [id number] Dose: 13.9 mCi right AC IV Time of Injection: 14:40 hrs Clinical Indication: Initial treatment strategy to evaluate non-Hodgkin lymphoma. FDG ([id number]) PET imaging was performed at 15:40 hrs [...] Accreditation of Nuclear Medicine Laboratories (IAC Nuclear/PET). [id number] Deana Barahona [facility] PE ORDERABLES Final Result documented in this encounter Visit Diagnoses Diagnosis Lymphoma, non-Hodgkin's (CMS/HCC) Lymphosarcoma, unspecified site, extranodal and solid organ sites Lymphoma, non-Hodgkin's (CMS/HCC) Lymphosarcoma, unspecified site, extranodal and solid organ sites documented in this encounter
--- OUTSIDE RECORDS SUMMARY | 2025-06-27 16:26 | XMS_ITS | Clinical Summary ---
Author Organization [facility] Address [address] [facility] Attn: Epic Prelude ADT DANILO JAIME [address] Care Team Providers Care Head Of Marketing Name Role Phone Unavailable Primary Care Provider Unavailabl e Social History Tobacco Use Types Packs/Day Years Used Date Smoking Tobacco: Never Assessed Comments Unknown Sex and Gender Information Value Date Recorded Sex Assigned at Not on file Legal Sex Female 11:24 PM DIVEMASTER Gender Identity Not on file Sexual Orientation [...]
--- NOTE | 2025-06-27 16:59 | CTR_ITS ---
PROCEDURE INFORMATION: Exam: CT Head Without Contrast Exam date and time: 06/27/2025 5:15 PM Age: 79 years old Clinical indication: Altered mental status/memory loss; Confusion or disorientation TECHNIQUE: Imaging protocol: Computed tomography of the head without contrast. Radiation optimization: All CT scans at this facility use at least one of these dose optimization techniques: automated exposure control; mA and/or kV adjustment per patient size (includes targeted exams where dose is matched to clinical indication); or iterative reconstruction. COMPARISON: CT head wo con* [id number] 06/23/2025 2:59 PM RADIATION DOSE METRICS: Total DLP (mGy-cm): 1013.48 FINDINGS: Brain: No hemorrhage. Unremarkable white matter. No mass effect. Moderate to severe diffuse parenchymal volume loss. Extensive chronic microangiopathic white matter changes. Cerebral ventricles: No ventriculomegaly. Paranasal sinuses: Visualized sinuses are unremarkable. No fluid levels. Mastoid air cells: Visualized mastoid air cells are well aerated. Bones: No significant focal osseous lesions. Soft tissues: Unremarkable. CT/CT head wo con* [id number] IMPRESSION: 1. No acute intracranial findings. 2. Moderate to severe diffuse parenchymal volume loss. 3. Extensive chronic microangiopathic white matter changes.
--- NOTE | 2025-06-27 17:01 | XRR_ITS ---
PROCEDURE INFORMATION: Exam: XR Chest Exam date and time: 06/27/2025 5:08 PM Age: 79 years old Clinical indication: Cough and dyspnea; Additional info: Dyspnea/cough TECHNIQUE: Imaging protocol: Radiologic exam of the chest. Views: 1 view. COMPARISON: CR (CHEST, ) 06/23/2025 2:32 PM FINDINGS: Lungs: No infiltrates. No suspicious masses or nodules. Pleural spaces: No pleural effusions or pneumothorax. Heart/Mediastinum: Mild cardiomegaly. Bones/joints: No significant osseous lesion. No fractures. XR/XR chest 1V portable [id number] IMPRESSION: 1. No acute cardiopulmonary findings radiographically. 2. Mild cardiomegaly.
--- NOTE | 2025-06-27 17:05 | ED_ITS ---
Documented by User: Parmjit Ovalle, 06/29/25 09:56 HPI - Altered Mental Status General: Chief Complaint: Altered Mental Status Stated Complaint: stroke like symptoms Time Seen by Provider: 06/27/25 16:36 History of Present Illness: 79-year-old female presents emergency ro om with complaints of weakness. Patient has a history of dementia atrial fibrillation recent urinary tract infection he was discharged at the insistence of the patient's his son just an hour or 2 ago. The attending physician from the floor had tried to convince them not to leave because he did not feel she was quite ready for it. They did document the patient ambulated 325 feet earlier today the the son says that since she got home she cannot walk at all. She was documented as a walk with standby assist. He was unable to get her out of the car into the home. She has been hallucinating since she will. He is not realizing he probably should have pursued patient going to the correction. Related Data Home Medications ?Medication ?Instructions ?Recorded ?Confirmed bismuth subsalicylate 262 mg/15 mL 262 mg PO DAILY PRN Diarrhea 01/18/24 06/28/25 oral suspension (Pepto-Bismol) brimonidine 0.1 % eye drops 1 drp ophthalmic (eye) BID 01/18/24 06/28/25 (Alphagan P) magnesium hydroxide 400 mg/5 mL 30 ml PO QPM PRN Const ipation 01/18/24 06/28/25 oral suspension (Milk of Magnesia) sennosides 25 mg tablet (Ex-Lax 25 mg PO DAILY PRN Con stipation 01/18/24 06/28/25 Maximum Strength) sodium phosphates 19 gram-7 118 ml [place] DAILY PRN Consti pation 01/18/24 06/28/25 gram/118 mL enema (Fleet Enema) amlodipine 2.5 mg tablet 2.5 mg PO DAILY 05/26/24 mupirocin 2 % topical ointment See Rx Instructions .Ro [place] .COMPLEX 06/23/25 06/28/25 Previous Rx's ?Medication ?Instructions ?Recorded aspirin 81 mg tablet,delayed 81 mg PO DAILY #30 tabs 0 06/27/25 release carvedilol 6.25 mg tablet 12.5 mg (2 x 6.25 mg) PO BID #60 06/27/25 tabs losartan 50 mg tablet 25 mg (1/2 x 50 mg) PO DAILY #30 06/27/25 tabs risperidone 0.25 mg tablet 0.25 mg PO BEDTIME PRN agit ation 06/27/25 #30 tabs spironolactone 25 mg tablet 12.5 mg (1/2 x 25 mg) PO D AILY #15 06/27/25 tabs Allergies Allergy/AdvReac Type Severity Reaction Status Date / Time adhesive tape Allergy ALGY-Rash Verified 06/23/25 14:17 Influenza Virus Vaccines Allergy ALGY-Rash Verified 06/23/25 14:17 Review of Systems General: Reports: ROS unobtainable due to mental status PFSH ED PFSH: Medical History GERD (gastroesophageal reflux disease) Bilateral carotid artery stenosis without cerebral infarction Closed head injury Mixed hyperlipidemia 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 disc disorder 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 region Lumbar stenosis without neurogenic claudication 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 (current) use of opiate analgesic Pain management contract signed HX: breast cancer ER [place] negative, 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 status post radiation therapy and h ormonal therapy, currently on Femara Stroke (cerebrum) Hx of stroke in February 07, 2019 Spondylolisthesis of cervical region Cervical disc disorder with myelopathy of mid-cervical region Chronic bronchitis Surgical History History of colonoscopy 2019 S/P total left hip arthroplasty Date of procedure: February 10, 2022 Diagnosis: Severe osteoarthritis left hip Procedure done: Left total hip arthroplasty Implants: [employer] total hip system with the following implants: A 46 mm by C Trident II solid back acetabular shell, an MDM cementless liner 36 mm inner diameter by Christina alpha code and Accolade II size 4 with 127 degree neck angle hip stem with a 22.2 mm outer diameter +0 mm neck offset femoral head and a adventism X3 insert size 22.2 mm inner diameter by 36C Status post carotid endarterectomy History of left breast biopsy Port-A-Cath in place 04/16/20 History of cholecystectomy History of hysterectomy / BSO / appendectomy H/O total hip arthroplasty Right Social History Smoking and tobacco/nicotine status: never used tobacco/nicotine Alcohol intake: never Substance/Drug Use: never Lives independently: Yes Household members: spouse Marital status: Current occupational status: retired Physical Exam HENMT: COMMON NORMALS: normocephalic, atraumatic and hearing grossly normal bilaterally HEAD & SCALP: normocephalic and atraumatic Resp: COMMON NORMALS: normal respiratory effort, No retractions, No use of accessory muscles and clear to auscultation bilaterally AUSCULTATION: clear to auscultation bilaterally Cardio: COMMON NORMALS: regular rate, regular rhythm and No murmurs present (Cardio) RATE: regular rate RHYTHM: regular rhythm GI: COMMON NORMALS: Soft to palpation and No hepatosplenomegaly present AUSCULTATION: Yes normoactive bowel sounds PALPATION: Yes Soft to palpation, No Tenderness to palpation present (GI), No Guarding due to palpation present (GI) and Yes No hepatosplenomegaly present Extremity: COMMON NORMALS: normal to inspection, capillary refill normal, no clubbing, cyanosis or edema, no calf tenderness and no pedal edema Skin: COMMON NORMALS: no rashes or lesions noted GENERAL SKIN EXAM: no rashes or lesions noted Course Vital Signs: Vital signs: Vital Signs Temperature 98.7 F 06/27/25 16:26 Pulse Rate 60 06/28/25 06:45 Respiratory Rate 20 H 06/27/25 17:45 Blood Pressure 122/64 06/28/25 08:08 Pulse Oximetry 96 06/28/25 08:08 Oxygen Delivery Me thod Room Air 06/28/25 06:45 MDM - Altered Mental Status Medical Decision Making Care signed out to Dr. Iniguez at change of shift. See final notes for diagnosis and disposition. Care assumed at change of shift telephonic nurse case manager is working on correction placement patient I believe is having sundowning last night she was not able to manage hardly anything of today she has actually been more active and required redirection although we do not have to medicate her. Ultimately they were unable to secure correction admission eventually the son agreed to take her home we will continue work on correction placement Lab Data Radiology Impressions Head CT 06/27/25 16:59 IMPRESSION: 1. No acute intracranial findings. 2. Moderate to severe diffuse parenchymal volume loss. 3. Extensive chronic microangiopathic white matter changes. Chest X-Ray 06/27/25 17:01 IMPRESSION: 1. No acute cardiopulmonary findings radiographically. 2. Mild cardiomegaly. Laboratory Results Urine Color Yellow (Yellow) 06/27/25 17:42 Urine Appearance Clear (CLEAR) 06/27/25 17:42 Urine pH 6.5 (5-7) 06/27/25 17:42 Ur Specific Lenorah 1.020 (1.005-1.030) 06/27/25 17:42 Urine Protein 1+ (Negative) A 06/27/25 17:42 Urine Glucose (UA) Negative (Normal) 06/27/25 17:42 Urine Ketones Trace (Negative) 06/27/25 17:42 Urine Blood Negative (Negative) 06/27/25 17:42 Urine Nitrate Negative (Negative) 06/27/25 17:42 Urine Bilirubin Negative (Negative) 06/27/25 17:42 Urine Urobilinogen 1.0 mg/dL (Negative) 06/27/25 17:42 Ur Leukocyte Esterase 1+ (Negative) A 06/27/25 17:42 Urine RBC 0-2 /hpf (0-2) 06/27/25 17:42 Urine WBC 0-5 /hpf (0-5) 06/27/25 17:42 Ur Squamous Epith Cells 0-5 /hpf (0-5) 06/27/25 17:42 Amorphous Sediment Not Reportable 06/27/25 17:42 Urine Bacteria None seen /hpf (NONE) 06/27/25 17:42 Hyaline Casts 11.97 /lpf 06/27/25 17:42 Discharge Plan Discharge Patient Disposition: Home Clinical Impression: Dementia Condition: Stable Prescriptions: No Action amlodipine 2.5 mg tablet 2.5 mg PO DAILY magnesium hydroxide [Milk of Magnesia] 400 mg/5 mL Suspension 30 ml PO QPM PRN (Reason: Constipation) bismuth subsalicylate [Pepto-Bismol] 262 mg/15 mL Suspension 262 mg PO DAILY PRN (Reason: Diarrhea) Fleet Enema 19-7 gram/118 mL Enema 118 ml [place] DAILY PRN (Reason: Constipation) Ex-Lax Maximum Strength 25 mg Tablet 25 mg PO DAILY PRN (Reason: Constipation) brimonidine [Alphagan P] 0.1 % drops 1 drp ophthalmic (eye) BID mupirocin 2 % ointment See Rx Instructions .ROUTE .COMPLEX Rx Instructions: APPLY A SMALL AMOUNT OF OINTMENT TOPICALLY TO AFFECTED AREA THREE TIMES DAILY. aspirin 81 mg Tablet,Delayed Release (Dr/Ec) 81 mg PO DAILY Qty: 30 0RF risperidone 0.25 mg Tablet 0.25 mg PO BEDTIME PRN (Reason: agitation) Qty: 30 0RF losartan 50 mg Tablet 25 mg PO DAILY Qty: 30 1RF carvedilol 6.25 mg Tablet 12.5 mg PO BID Qty: 60 1RF spironolactone 25 mg tablet 12.5 mg PO DAILY Qty: 15 1RF Discharge Orders: Discharge ED (Routine); Ordered 06/28/25 Ordered By: Parmjit Ovalle Referrals: Jackson Yi MD [Primary Care Provider, Family Practice] Discharge Diet: Usual diet Discharge Activity: Increase activity as tolerated Patient Instructions: Altered Mental Status (ED), Opioid Safety, Pain Management, Patient Portal & Sumaya Instructions Activity Restrictions/Additional Instructions: Thank you for choosing [facility] for your healthcare needs today. It is very important that you follow up as instructed or that you return to the Emergency Department should you have concerns or if your condition changes or worsens in any way. Emergency department visits are focused on emergent conditions, in some cases you may require further evaluation on an outpatient basis. You were seen in the emergency room. We had worked on getting correction placement. Recommend you continue to work on correction placement with your primary care doctor continue the medications you have previously prescribed recommend giving the risperidone in the late afternoon to help with sundowning and behavioral issues. (Please note that included in your discharge packet is information concerning opioid safety and pain management. This information is given to all patients were discharged from the ER regardless of their discharge diagnosis or the medicines they usually take or are prescribed.) Print Language: Croatian Sign Out Sign Out Data: Patient Sign Out occurred on 06/27/25 at 18:16. Patient's care was discussed, and care was transferred from Parmjit Ovalle DO to Donell Iniguez MD. Post-Handoff Eval: In summary, patient is a 79-year-old female who was recently discharged from the hospital in the care of her son who then found he was unable to care for her. He was unable to get her out of the car and thus he brought her back to the hospital. My best understanding is that while she was in the hospital, the hospitalist team had advised that the patient be placed in a correction. This may be the best course for her if feasible. She will be observed overnight in the emergency department and until such time that she can be evaluated by case management for possible placement. Coding Level of Care Code ED Sound Mixer for Hardy Fwd Documented by User: Donell Iniguez MD 06/28/25 04:48 HPI - Altered Mental Status General: Chief Complaint: Altered Mental Status Stated Complaint: stroke like symptoms Time Seen by Provider: 06/27/25 16:36 Related Data Home Medications ?Medication ?Instructions ?Recorded ?Confirmed bismuth subsalicylate 262 mg/15 mL 262 mg PO DAILY PRN Diarrhea 01/18/24 oral suspension (Pepto-Bismol) brimonidine 0.1 % eye drops 1 drp ophthalmic (eye) BID 01/18/24 06/28/25 (Alphagan P) magnesium hydroxide 400 mg/5 mL 30 ml PO QPM PRN Const ipation 01/18/24 06/28/25 oral suspension (Milk of Magnesia) sennosides 25 mg tablet (Ex-Lax 25 mg PO DAILY PRN Con stipation 01/18/24 06/28/25 Maximum Strength) sodium phosphates 19 gram-7 118 ml [place] DAILY PRN Consti pation 01/18/24 06/28/25 gram/118 mL enema (Fleet Enema) amlodipine 2.5 mg tablet 2.5 mg PO DAILY 05/26/24 mupirocin 2 % topical ointment See Rx Instructions .Ro [place] .COMPLEX 06/23/25 06/28/25 Previous Rx's ?Medication ?Instructions ?Recorded aspirin 81 mg tablet,delayed 81 mg PO DAILY #30 tabs 0 06/27/25 release carvedilol 6.25 mg tablet 12.5 mg (2 x 6.25 mg) PO BID #60 06/27/25 tabs losartan 50 mg tablet 25 mg (1/2 x 50 mg) PO DAILY #30 06/27/25 tabs risperidone 0.25 mg tablet 0.25 mg PO BEDTIME PRN agit ation 06/27/25 #30 tabs spironolactone 25 mg tablet 12.5 mg (1/2 x 25 mg) PO D AILY #15 06/27/25 tabs Allergies Allergy/AdvReac Type Severity Reaction Status Date / Time adhesive tape Allergy ALGY-Rash Verified 06/23/25 14:17 Influenza Virus Vaccines Allergy ALGY-Rash Verified 06/23/25 14:17 PFSH ED PFSH: Medical History GERD (gastroesophageal reflux disease) Bilateral carotid artery stenosis without cerebral infarction Closed head injury Mixed hyperlipidemia 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 disc disorder 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 region Lumbar stenosis without neurogenic claudication 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 (current) use of opiate analgesic Pain management contract signed HX: breast cancer ER [place] negative, 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 status post radiation therapy and hormonal therapy, currently on Femara Stroke (cerebrum) Hx of stroke in February 07, 2019 Spondylolisthesis of cervical region Cervical disc disorder with myelopathy of mid-cervical region Chronic bronchitis Surgical History History of colonoscopy 2019 S/P total left hip arthroplasty Date of procedure: February 10, 2022 Diagnosis: Severe osteoarthritis left hip Procedure done: Left total hip arthroplasty Implants: [employer] total hip system with the following implants: A 46 mm by C Trident II solid back acetabular shell, an MDM cementless liner 36 mm inner diameter by C alpha code and Accolade II size 4 with 127 degree neck angle hip stem with a 22.2 mm outer diameter +0 mm neck offset femoral head and a adventism X3 insert size 22.2 mm inner diameter by 36C Status post carotid endarterectomy History of left breast biopsy Port-A-Cath in place 04/16/20 History of cholecystectomy History of hysterectomy / BSO / appendectomy H/O total hip arthroplasty Right Social History Smoking and tobacco/nicotine status: never used tobacco/nicotine Alcohol intake: never Substance/Drug Use: never Lives independently: Yes Household members: spouse Marital status: Current occupational status: retired Course Vital Signs: Vital signs: Vital Signs Temperature 98.7 F 06/27/25 16:26 Pulse Rate 60 06/28/25 06:45 Respiratory Rate 20 H 06/27/25 17:45 Blood Pressure 122/64 06/28/25 08:08 Pulse Oximetry 96 06/28/25 08:08 Oxygen Delivery Me thod Room Air 06/28/25 06:45 MDM - Altered Mental Status Lab Data Radiology Impressions Head CT 06/27/25 16:59 IMPRESSION: 1. No acute intracranial findings. 2. Moderate to severe diffuse parenchymal volume loss. 3. Extensive chronic microangiopathic white matter changes. Chest X-Ray 06/27/25 17:01 IMPRESSION: 1. No acute cardiopulmonary findings radiographically. 2. Mild cardiomegaly. Laboratory Results Urine Color Yellow (Yellow) 06/27/25 17:42 Urine Appearance Clear (CLEAR) 06/27/25 17:42 Urine pH 6.5 (5-7) 06/27/25 17:42 Ur Specific Lenorah 1.020 (1.005-1.030) 06/27/25 17:42 Urine Protein 1+ (Negative) A 06/27/25 17:42 Urine Glucose (UA) Negative (Normal) 06/27/25 17:42 Urine Ketones Trace (Negative) 06/27/25 17:42 Urine Blood Negative (Negative) 06/27/25 17:42 Urine Nitrate Negative (Negative) 06/27/25 17:42 Urine Bilirubin Negative (Negative) 06/27/25 17:42 Urine Urobilinogen 1.0 mg/dL (Negative) 06/27/25 17:42 Ur Leukocyte Esterase 1+ (Negative) A 06/27/25 17:42 Urine RBC 0-2 /hpf (0-2) 06/27/25 17:42 Urine WBC 0-5 /hpf (0-5) 06/27/25 17:42 Ur Squamous Epith Cells 0-5 /hpf (0-5) 06/27/25 17:42 Amorphous Sediment Not Reportable 06/27/25 17:42 Urine Bacteria None seen /hpf (NONE) 06/27/25 17:42 Hyaline Casts 11.97 /lpf 06/27/25 17:42 No radiology studies performed this visit Discharge Plan Discharge Patient Disposition: Home Clinical Impression: Dementia Condition: Stable Prescriptions: No Action amlodipine 2.5 mg tablet 2.5 mg PO DAILY magnesium hydroxide [Milk of Magnesia] 400 mg/5 mL Suspension 30 ml PO QPM PRN (Reason: Constipation) bismuth subsalicylate [Pepto-Bismol] 262 mg/15 mL Suspension 262 mg PO DAILY PRN (Reason: Diarrhea) Fleet Enema 19-7 gram/118 mL Enema 118 ml [place] DAILY PRN (Reason: Constipation) Ex-Lax Maximum Strength 25 mg Tablet 25 mg PO DAILY PRN (Reason: Constipation) brimonidine [Alphagan P] 0.1 % drops 1 drp ophthalmic (eye) BID mupirocin 2 % ointment See Rx Instructions .ROUTE .COMPLEX Rx Instructions: APPLY A SMALL AMOUNT OF OINTMENT TOPICALLY TO AFFECTED AREA THREE TIMES DAILY. aspirin 81 mg Tablet,Delayed Release (Dr/Ec) 81 mg PO DAILY Qty: 30 0RF risperidone 0.25 mg Tablet 0.25 mg PO BEDTIME PRN (Reason: agitation) Qty: 30 0RF losartan 50 mg Tablet 25 mg PO DAILY Qty: 30 1RF carvedilol 6.25 mg Tablet 12.5 mg PO BID Qty: 60 1RF spironolactone 25 mg tablet 12.5 mg PO DAILY Qty: 15 1RF Discharge Orders: Discharge ED (Routine); Ordered 06/28/25 Ordered By: Parmjit Ovalle Referrals: Jackson Yi MD [Primary Care Provider, Family Practice] Discharge Diet: Usual diet Discharge Activity: Increase activity as tolerated Patient Instructions: Altered Mental Status (ED), Opioid Safety, Pain Management, Patient Portal & Sumaya Instructions Activity Restrictions/Additional Instructions: Thank you for choosing [facility] for your healthcare needs today. It is very important that you follow up as instructed or that you return to the Emergency Department should you have concerns or if your condition changes or worsens in any way. Emergency department visits are focused on emergent conditions, in some cases you may require further evaluation on an outpatient basis. You were seen in the emergency room. We had worked on getting correction placement. Recommend you continue to work on correction placement with your primary care doctor continue the medications you have previously prescribed recommend giving the risperidone in the late afternoon to help with sundowning and behavioral issues. (Please note that included in your discharge packet is information concerning opioid safety and pain management. This information is given to all patients were discharged from the ER regardless of their discharge diagnosis or the medicines they usually take or are prescribed.) Print Language: Croatian Sign Out Sign Out Data: Patient Sign Out occurred on 06/27/25 at 18:16. Patient's care was discussed, and care was transferred from Parmjit Ovalle DO to Donell Iniguez MD. Post-Handoff Eval: In summary, patient is a 79-year-old female who was recently discharged from the hospital in the care of her son who then found he was unable to care for her. He was unable to get her out of the car and thus he brought her back to the hospital. My best understanding is that while she was in the hospital, the hospitalist team had advised that the patient be placed in a correction. This may be the best course for her if feasible. She will be observed overnight in the emergency department and until such time that she can be evaluated by case management for possible placement. Coding Level of Care Code ED Sound Mixer for Hardy Enriquez
--- NOTE | 2025-06-27 17:24 | ECG_ITS ---
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 Measurements Intervals [place] Rate: 83 P: 0 NV: 0 QRS: 93 QRSD: 126 T: -10 QT: 344 QTc: 406 Interpretive Statements Multifocal atrial tachycardia BORDERLINE RIGHT AXIS DEVIATION [QRS AXIS > 90] SEPTAL MYOCARDIAL INFARCTION , OF INDETERMINATE AGE [40+ ms Q WAVE IN V1/V2] INTRAVENTRICULAR CONDUCTION DELAY Compared to ECG 06/23/2025 21:24:12 RIGHT AXIS DEVIATION IS NEW Electronically Signed On 06-27-2025 22:15:38 CDT by Giuseppe Fair M.D. [email or web address]
[2025-06-27 17:57] LABS: Glucose Urine UA Negative (Normal); Nitrate Urine Negative (Negative); Specific Gravity, Urine 1.020 (1.005-1.030)
[2025-06-27 18:01] LABS: Add Urine Microscopic? YES; Universal Test for UA Present (0)
[2025-06-27 18:23] LABS: UA Slide Review UA Slide Review Perf
[2025-06-28] VITALS: PULSE 88; O2SAT 92
[2025-06-28 02:00] VITALS: BP 140/74; PULSE 80; O2SAT 97
--- NOTE | 2025-06-28 03:10 | PC.NURSE ---
PT WAS UNABLE TO TAKE A DRINK OF WATER THROUGH STRAW AND DENIED BEING IN PAIN.
[2025-06-28 06:45] VITALS: BP 135/66; PULSE 60; O2SAT 91
[2025-06-28 08:08] VITALS: BP 122/64; O2SAT 96
--- NOTE | 2025-06-28 13:14 | PC.SOCIAL ---
SOCIAL SERVICE NOTE: CM Spoke with [facility] patients son, Informed him that CM will follow up with the three SNF [facility] and get the daily rates for Correction Care in a dementia unit. Spoke with [place] and [facility]. Rates are between $240-$248 a day. Son was informed and stated that he would go speak with the facilities, he did touch base with [facility] Jennifer, Jennifer was informed the son was coming over to speak with her about jail placement. Jennifer told him that he can self pay for his mother while they work on a Medicaid application. Jennifer asked the son to have CM send referral. Referral was sent, waiting to hear from Jennifer at [facility]. [id number] completed and signed by
--- NOTE | 2025-06-28 13:41 | PC.SOCIAL ---
Level 2 submitted to [facility] at this time. Ref#[id number]
--- NOTE | 2025-06-28 17:30 | PC.NURSE ---
PATIENTS SON INFORMED ME THAT [facility] IS DECLINING PATIENT DUE TO BEHAVIORAL MEDICATION GIVEN TO HER AT [facility]. PATIENT WAS NOT GIVEN ANY MEDICATIONS. CALLED AND SPOKE WITH CASE MANAGEMENT OF [facility] TO INFORM THEM THAT MEDS WERE NOT GIVEN. THEY WERE ORDERED IF NEEDED BUT NEVER GIVEN. INFORMED PATIENTS SON OF PHONE CALL AND INFORMED SUNNY SPEARSSOIL SCIENCE TEACHER OF CONVERSATION.
--- NOTE | 2025-06-28 18:08 | PC.NURSE ---
PATIENT REFUSED VITALS AND CONTINUED TO RIP CORDS OFF OF HER. PATIENT REFUSED DC VITALS.
--- NOTE | 2025-06-29 09:29 | PC.NURSE ---
Pt was a readmit and CM seen the pt in person.
== END 2025-06-28 18:09 | disposition home or self-care (01) ==
PROVIDERS: Emergency Provider Family Medicine; PCP Family Medicine
DX: R53.1 Weakness (principal); F03.90 Unspecified dementia, unspecified severity, without behavioral disturbance, psychotic disturbance, mood disturbance, and anxiety; Z79.82 Long term (current) use of aspirin; E78.2 Mixed hyperlipidemia; Z85.3 Personal history of malignant neoplasm of breast
CPT/HCPCS: 36415; 70450; 71045; 81001; 93005; 99285

== ENCOUNTER 2025-07-25 14:40 | Emergency (ER) | payer MEDICARE, SELFPAY ==
--- OUTSIDE RECORDS SUMMARY | 2025-07-25 14:46 | XMS_ITS | Clinical Summary ---
Author Organization [facility] Address [address] [place] [address] Phone Care Team Providers Care Car Knocker Name Role Phone Unavailable Primary Care Provider [...] 2018 INFLUENZA VACCINE (#1) [address] [place] [id number] [facility]
--- OUTSIDE RECORDS SUMMARY | 2025-07-25 14:46 | XMS_ITS | Encounter Summary ---
Author Organization [facility] Address [address] [place] [address] Care Team Providers Care Speeder Operator Name Role Phone Unavailable Primary Care Provider Unavailabl e Reason for Referral * PET Scan (Urgent) - Closed Specialty Diagnoses / Procedures Referred By Deborah rasheed Referred To Contact Radiology Diagnoses Lymphoma, non-Hodgkin's (CMS/HCC) Procedures PET TUMOR IMG W CT SKL BSE MID THG Deana Barahona FNP [address] [place] [address] Phone: tel: fax: [facility] Nuclear Medicine [address] [place] [phone] Phone: tel: fax: Referral ID Status Reason Start Date Expiration Date V isits Requested Visits Authorized [id number] Closed [facility] CTS to Schedule 08/12/2020 10/10/2020 1 1 Encounter Details Date Type Department Care Team (Late st Contact Info) Description 06/27/2020 Ancillary Orders [facility] Pre-Registration [place] CALL TO MAKE APPOINTMENT ONLY [address] [place] [address] Deana Barahona FNP [address] [place] [address] Lymphoma, non-Hodgkin's (CMS/HCC) Social History [...] Accreditation of Nuclear Medicine Laboratories (IAC Nuclear/PET). [id number] Narrative 08/15/2020 5:53 PM CDT Radionuclide PET Metabolic Tumor Imaging with CT Attenuation Correction and Anatomic Localization from Skull Base to Mid Thigh: Radiopharmaceutical: [id number] Dose: 13.9 mCi right AC IV Time of Injection: 14:40 hrs Clinical Indication: Initial treatment strategy to evaluate non-Hodgkin lymphoma. FDG (L-01-[id number]) PET imaging was performed at 15:40 hrs [...] from Skull Base to Mid Thigh: Radiopharmaceutical: [id number]-[id number] Dose: 13.9 mCi right AC IV Time of Injection: 14:40 hrs Clinical Indication: Initial treatment strategy to evaluate non-Hodgkin lymphoma. FDG (K-14-[id number]) PET imaging was performed at 15:40 hrs [...] Accreditation of Nuclear Medicine Laboratories (IAC Nuclear/PET). [id number] Deana Barahona [facility] PE ORDERABLES Final Result documented in this encounter Visit Diagnoses Diagnosis Lymphoma, non-Hodgkin's (CMS/HCC) Lymphosarcoma, unspecified site, extranodal and solid organ sites Lymphoma, non-Hodgkin's (CMS/HCC) Lymphosarcoma, unspecified site, extranodal and solid organ sites documented in this encounter
--- OUTSIDE RECORDS SUMMARY | 2025-07-25 14:46 | XMS_ITS | Encounter Summary ---
Author Organization [facility] Address [address] [place] [address] Care Team Providers Care Pet Trainer Name Role Phone Unavailable Primary Care Provider Unavailabl e Encounter Details Date Type Department Care Team (Late st Contact Info) Description 10/16/2020 Ancillary Orders [facility] Pre-Registration [place] CALL TO MAKE APPOINTMENT ONLY [address] [place] [address] Carl Thompson MD [address] [place] [address] Non-Hodgkin lymphoma, unspecified, extranodal and solid organ sites (CMS/HCC); Malignant neoplasm of upper-outer quadrant of left female breast (CMS/HCC); Estrogen receptor positive status (ER+); 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
--- OUTSIDE RECORDS SUMMARY | 2025-07-25 14:46 | XMS_ITS | Clinical Summary ---
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
[2025-07-25 14:47] VITALS: BP 139/80; PULSE 62; TEMP 36.4; O2SAT 99; BMI 21.9
--- NOTE | 2025-07-25 15:23 | ED_ITS ---
HPI - Eye Problem General: Chief complaint: Eye Problems Stated complaint: L Eye got some denture cream in it Time Seen by Provider: 07/25/25 14:53 Source: patient and family Mode of arrival: ambulatory Limitations: no limitations History of Present Illness: Patient is an 80-year-old female who presents the emergency department with complaints of getting denture glue in her left eye. She arrives with no complaints, however son in the room states that he had noticed that she was accidentally putting the denture glue/cream in her eye when she thought it was facial cream. He states he attempted to irrigated this at home but was not able to flush it out as much as he would have liked to. Patient is not a contact wearer, however has a history of macular degeneration. No visual changes, pain with extraocular movements, retro-orbital pain, conjunctival injection, headache, or other concerns reported at this time. Her vitals are stable. Nontoxic-appearing on exam. MD chief complaint: other (Denture cream/glue in the left eye) Onset (ago): hour(s) Onset description: sudden Duration: constant Location: left eye Eye Symptoms: other (none) Place: home Mechanism: chemical exposure Associated symptoms: Denies fever(s), headache(s), nausea, neck pain or vomiting Related Data Home Medications ?Medication ?Instructions ?Recorded ?Confirmed bismuth subsalicylate 262 mg/15 mL 262 mg PO DAILY PRN Diarrhea 01/18/24 06/28/25 oral suspension (Pepto-Bismol) brimonidine 0.1 % eye drops 1 drp ophthalmic (eye) BID 01/18/24 06/28/25 (Alphagan P) magnesium hydroxide 400 mg/5 mL 30 ml PO QPM PRN Const ipation 01/18/24 06/28/25 oral suspension (Milk of Magnesia) sennosides 25 mg tablet (Ex-Lax 25 mg PO DAILY PRN Con stipation 01/18/24 06/28/25 Maximum Strength) sodium phosphates 19 gram-7 118 ml OH DAILY PRN Consti pation 01/18/24 06/28/25 gram/118 mL enema (Fleet Enema) amlodipine 2.5 mg tablet 2.5 mg PO DAILY 05/26/24 mupirocin 2 % topical ointment See Rx Instructions .Ro [place] .COMPLEX 06/23/25 06/28/25 Previous Rx's ?Medication ?Instructions ?Recorded aspirin 81 mg tablet,delayed 81 mg PO DAILY #30 tabs 0 06/27/25 release carvedilol 6.25 mg tablet 12.5 mg (2 x 6.25 mg) PO BID #60 06/27/25 tabs losartan 50 mg tablet 25 mg (1/2 x 50 mg) PO DAILY #30 06/27/25 tabs risperidone 0.25 mg tablet 0.25 mg PO BEDTIME PRN agit ation 06/27/25 #30 tabs spironolactone 25 mg tablet 12.5 mg (1/2 x 25 mg) PO D AILY #15 06/27/25 tabs Allergies Allergy/AdvReac Type Severity Reaction Status Date / Time adhesive tape Allergy ALGY-Rash Verified 07/25/25 14:53 Influenza Virus Vaccines Allergy ALGY-Rash Verified 07/25/25 14:53 Review of Systems General: Reports: 10 or more systems reviewed and unremarkable except in HPI and below Const: Denies: fever(s), chills or fatigue Eyes: Reports: other (Denture cream/glue in left eye); Denies: change in vision, blurry vision, eye discomfort, eye discharge or eye redness ENMT: Denies: throat pain, ear or mastoid pain or nasal discharge Card: Denies: chest pain, palpitations, swelling of feet/ankles or lightheadedness Resp: Denies: dyspnea, productive cough or wheezing GI: Denies: abdominal pain, nausea, vomiting, diarrhea or constipation : Denies: flank pain, difficulty voiding, dysuria or urinary frequency Musc: Denies: neck pain, back pain or joint pain Skin/Breast: Denies: rash Neuro: Denies: headache(s), numbness in extremities or weakness in extremities PFSH ED PFSH: Medical History GERD (gastroesophageal reflux disease) Bilateral carotid artery stenosis without cerebral infarction Closed head injury Mixed hyperlipidemia 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 disc disorder 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 region Lumbar stenosis without neurogenic claudication Stenosis of cervical spine with myelopathy 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 Pain management contract signed HX: breast cancer ER [place] negative, 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 status post radiation therapy and hormonal therapy, currently on Femara Stroke (cerebrum) Hx of stroke in February 07, 2019 Spondylolisthesis of cervical region Cervical disc disorder with myelopathy of mid-cervical region Chronic bronchitis Surgical History History of colonoscopy 2020 S/P total left hip arthroplasty Date of procedure: February 10, 2022 Diagnosis: Severe osteoarthritis left hip Procedure done: Left total hip arthroplasty Implants: The [employer] total hip system with the following implants: A 46 mm by C Trident II solid back acetabular shell, an MDM cementless liner 36 mm inner diameter by C alpha code and Accolade II size 4 with 127 degree neck angle hip stem with a 22.2 mm outer diameter +0 mm neck offset femoral head and a moravian X3 insert size 22.2 mm inner diameter by 36C Status post carotid endarterectomy History of left breast biopsy Port-A-Cath in place 04/16/20 History of cholecystectomy History of hysterectomy / BSO / appendectomy H/O total hip arthroplasty Right Social History Smoking and tobacco/nicotine status: never used tobacco/nicotine Alcohol intake: never Substance/Drug Use: never Lives independently: Yes Household members: spouse Marital status: Current occupational status: retired Physical Exam Const: COMMON NORMALS: no acute distress, patient oriented x3 and no limitations GENERAL APPEARANCE: cooperative, comfortable and well developed ORIENTATION/CONSCIOUSNESS: Yes awake, Yes oriented to person, Yes oriented to place and Yes oriented to time HENMT: COMMON NORMALS: normocephalic, atraumatic and hearing grossly normal bilaterally HEAD & SCALP: normocephalic and atraumatic Eye: COMMON NORMALS: Equal, round and reactive pupils present, EOMs intact bilaterally and conjunctivae normal CONJUNCTIVA: Yes conjunctivae normal PUPIL: Yes Equal, round and reactive pupils present OTHER: No concerning conjunctival findings. Mild amount of residual denture cream under left eye. No evidence of foreign body to the left eye. No pain with extraocular movements. Fluorescein staining of the eye does not reveal any corneal abrasion. Neck/C-Spine: COMMON NORMALS: full ROM, supple and no JVD Resp: COMMON NORMALS: normal respiratory effort, No retractions, No use of accessory muscles and clear to auscultation bilaterally AUSCULTATION: clear to auscultation bilaterally Cardio: COMMON NORMALS: no JVD, regular rate, regular rhythm, No clicks present (Cardio), No murmurs present (Cardio) and No rub (Cardio) RATE: regular rate RHYTHM: regular rhythm Neuro: COMMON NORMALS: patient oriented x3, moves all extremities, no focal motor deficits and no sensory deficits noted SENSORIUM/ORIENTATION: Yes oriented to person, Yes oriented to place and Yes oriented to time Skin: COMMON NORMALS: no rashes or lesions noted GENERAL SKIN EXAM: no rashes or lesions noted Course Vital Signs: Vital signs: Vital Signs Temperature 97.5 F L 07/25/25 14:47 Pulse Rate 62 07/25/25 14:47 Blood Pressure 139/80 07/25/25 14:47 Pulse Oximetry 99 07/25/25 14:47 Oxygen Delivery Me thod Room Air 07/25/25 14:47 MDM - Eye Problem Medical Decision Making Patient presents after getting intra glue in her left eye. Presents asymptomatic however, no pain or visual changes. Poison control contacted, they recommended fluorescein stain to assess for any abrasion but otherwise no monitor needed further. Fluorescein stain did not show any current abrasion, her eye was flushed out here in the emergency department normal saline and she will be discharged home in stable condition. No radiology studies performed this visit Discharge Plan Discharge Patient Disposition: Home Clinical Impression: Chemical injury of left eye Condition: Stable Prescriptions: No Action amlodipine 2.5 mg tablet 2.5 mg PO DAILY magnesium hydroxide [Milk of Magnesia] 400 mg/5 mL Suspension 30 ml PO QPM PRN (Reason: Constipation) bismuth subsalicylate [Pepto-Bismol] 262 mg/15 mL Suspension 262 mg PO DAILY PRN (Reason: Diarrhea) Fleet Enema 19-7 gram/118 mL Enema 118 ml OH DAILY PRN (Reason: Constipation) Ex-Lax Maximum Strength 25 mg Tablet 25 mg PO DAILY PRN (Reason: Constipation) brimonidine [Alphagan P] 0.1 % drops 1 drp ophthalmic (eye) BID mupirocin 2 % ointment See Rx Instructions .ROUTE .COMPLEX Rx Instructions: APPLY A SMALL AMOUNT OF OINTMENT TOPICALLY TO AFFECTED AREA THREE TIMES DAILY. aspirin 81 mg Tablet,Delayed Release (Dr/Ec) 81 mg PO DAILY Qty: 30 0RF risperidone 0.25 mg Tablet 0.25 mg PO BEDTIME PRN (Reason: agitation) Qty: 30 0RF losartan 50 mg Tablet 25 mg PO DAILY Qty: 30 1RF carvedilol 6.25 mg Tablet 12.5 mg PO BID Qty: 60 1RF spironolactone 25 mg tablet 12.5 mg PO DAILY Qty: 15 1RF Discharge Orders: Discharge ED (Routine); Ordered 07/25/25 Ordered By: Mychal Vyas Referrals: Jackson Yi MD [Primary Care Provider, [facility]] Patient Instructions: Patient Portal & Sumaya Instructions Activity Restrictions/Additional Instructions: Eye Chemical Exposure Discharge Discharge Instructions After Denture Adhesive Eye Exposure - Your left eye was exposed to denture adhesive. The eye was flushed thoroughly in the emergency department, and no damage to the clear front part of your eye (the cornea) was found. - You do not have a corneal abrasion or any other injury to the eye at this time. You are not having any pain, redness, or changes in vision. - Most chemical exposures to the eye at home are mild, especially when the eye is rinsed quickly and well. Fast and thorough rinsing is the most important step to prevent injury. - Denture adhesives can sometimes cause irritation, but serious eye problems are rare if the adhesive is washed out quickly. - It is normal for your eye to feel slightly irritated for a day or two after a chemical exposure. If you wear contact lenses, do not put them in until your eye feels completely normal. - Do not rub your eye, as this can cause injury. - You may use xuol-wkv-scwtktl pain medicine like acetaminophen (Tylenol) or ibuprofen if you have mild discomfort. - Watch for any of the following symptoms over the next few days: - New pain, redness, or swelling - Blurry vision or loss of vision - Discharge from the eye - Sensitivity to light - Bleeding from the eye - Changes in the shape of your pupil - If any of these symptoms develop, or if your eye does not feel better in 24?48 hours, return to the emergency department or contact your eye doctor right away. - There is no need for special eye drops or ointments unless prescribed by your doctor. - If you have any questions or concerns, please call your healthcare provider. Prevention Tips - When using denture adhesive or other household products, keep them away from your eyes. - If you get any chemical in your eye again, rinse it immediately with plenty of water for at least 15 minutes, and seek medical attention if symptoms persist. Take care, and follow up as needed. Print Language: Maori Coding Level of Care Code ED Locomotive Engineer Diesel for Hardy Enriquez
[2025-07-25] MEDS: tetracaine 0.5% Op Soln 4 mL Btl 1 DROP EYE-BOTH (15:42)
[2025-07-25 15:58] VITALS: BP 142/87; PULSE 78; O2SAT 98
== END 2025-07-25 16:01 | disposition home or self-care (01) ==
PROVIDERS: Emergency Provider Physician Assistant; PCP Family Medicine
DX: T15.92XA Foreign body on external eye, part unspecified, left eye, initial encounter (principal); W44.8XXA Other foreign body entering into or through a natural orifice, initial encounter; Z79.82 Long term (current) use of aspirin; E78.2 Mixed hyperlipidemia; Z85.3 Personal history of malignant neoplasm of breast
CPT/HCPCS: 99283; J9999

== ENCOUNTER 2025-07-29 08:15 | Emergency (ER) | payer MEDICARE, SELFPAY ==
--- OUTSIDE RECORDS SUMMARY | 2025-07-29 08:24 | XMS_ITS | Encounter Summary ---
Author Organization [facility] Address [address] [place] [address] Care Team Providers Care Crew Leader Gluing Name Role Phone Unavailable Primary Care Provider Unavailabl e Reason for Referral * PET Scan (Urgent) - Closed Specialty Diagnoses / Procedures Referred By Deborah rasheed Referred To Contact Radiology Diagnoses Lymphoma, non-Hodgkin's (CMS/HCC) Procedures PET TUMOR IMG W CT SKL BSE MID THG Deana Barahona FNP [address] [place] [address] Phone: tel: fax: [facility] Nuclear Medicine [address] [place] [phone] Phone: tel: fax: Referral ID Status Reason Start Date Expiration Date V isits Requested Visits Authorized [id number] Closed [facility] CTS to Schedule 08/12/2020 10/10/2020 1 1 Encounter Details Date Type Department Care Team (Late st Contact Info) Description 06/27/2020 Ancillary Orders [facility] Pre-Registration [place] CALL TO MAKE APPOINTMENT ONLY [address] [place] [address] Deana Barahona FNP [address] [place] [address] Lymphoma, non-Hodgkin's (CMS/HCC) Social History [...] Accreditation of Nuclear Medicine Laboratories (IAC Nuclear/PET). [id number] Narrative 08/15/2020 5:53 PM CDT Radionuclide PET Metabolic Tumor Imaging with CT Attenuation Correction and Anatomic Localization from Skull Base to Mid Thigh: Radiopharmaceutical: [id number] Dose: 13.9 mCi right AC IV Time of Injection: 14:40 hrs Clinical Indication: Initial treatment strategy to evaluate non-Hodgkin lymphoma. FDG (V-88-[id number]) PET imaging was performed at 15:40 hrs [...] from Skull Base to Mid Thigh: Radiopharmaceutical: U-[id number] Dose: 13.9 mCi right AC IV Time of Injection: 14:40 hrs Clinical Indication: Initial treatment strategy to evaluate non-Hodgkin lymphoma. FDG (R-51-Lpcumeuuiaoiyglwvb) PET imaging was performed at 15:40 hrs [...] Accreditation of Nuclear Medicine Laboratories (IAC Nuclear/PET). [id number] Deana Barahona [facility] PE ORDERABLES Final Result documented in this encounter Visit Diagnoses Diagnosis Lymphoma, non-Hodgkin's (CMS/HCC) Lymphosarcoma, unspecified site, extranodal and solid organ sites Lymphoma, non-Hodgkin's (CMS/HCC) Lymphosarcoma, unspecified site, extranodal and solid organ sites documented in this encounter
--- OUTSIDE RECORDS SUMMARY | 2025-07-29 08:25 | XMS_ITS | Clinical Summary ---
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
--- OUTSIDE RECORDS SUMMARY | 2025-07-29 08:25 | XMS_ITS | Clinical Summary ---
Author Organization [facility] Address [address] [place] [address] Phone Care Team Providers Care Waste Water Plant Operator Name Role Phone Unavailable Primary Care [...] 2018 INFLUENZA VACCINE (#1) [address] [place] [id number] [facility]
--- OUTSIDE RECORDS SUMMARY | 2025-07-29 08:25 | XMS_ITS | Data Portability ---
Author Organization DANILO French [facility] Address [address] [place] [id number] Care Team Providers Care Dredge Hand Name Role Phone BEN YI Primary Care [...] serum or plasma 2024 025 ZARA [facility], [address], [facility] 1, [place], [address], 12:33:14 CBC 2024 025 [facility], [address] [facility] [address], [address], [place], [address], 12:30:57 lipid panel, blood 2024 025 ST[facility], [address] [facility] [address], [address], [place], [address], 12:33:17 Referral home health referral 2024 025 [email or web address] 2 [facility], [address] [place], [address], 5 11:12:21 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 Surgeries None recorded. Imaging None recorded. Medication Orders mupirocin 2 % topical ointment 2024 025 [facility], [address], [place], [address], 17:14:01 amlodipine 2.5 mg tablet 2024 025 [facility], [address], [place], [address], 5 11:09:00 amlodipine 2.5 mg tablet 2023 025 [facility], [address], [address], 5 10:55:54 Patient TargetsNo targets recorded. Patient InstructionsNo instructions recorded. 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 Referring Physician: [facility], Encounter Date: 10/02/2024 Home Health Referral for Fra il elderly Referring Physician: [facility], Encounter Date: 07/03/2025 Results Created Date Observation Date Name Description Value Unit Range Abnormal Flag Note LastModifiedBy Organization Detail LastModifiedTime 01/02/20 25 01/01/2025 CBC WBC 8.2 x10 4.0-10 .5 Not Available [facility] [address], [place], [address], 01/01/2025 12:30:57 01/02/20 25 01/01/2025 CBC RBC 4.28 x10 3.50-5 .50 Not Available [facility] [address] [facility] 1, [place], [address], 01/01/2025 12:30:57 01/02/20 25 01/01/2025 CBC HGB 13.6 g/dL 12.0-1 6.0 Not Available [facility] [address] [facility] 1, [place], [address], 01/01/2025 12:30:57 01/02/20 25 01/01/2025 CBC HCT 40.2 % 37.0-4 7.0 Not Available [facility] [address] [facility] 1, [place], [address], 01/01/2025 12:30:57 01/02/20 25 01/01/2025 CBC MCV 94.0 fL 80.0-9 9.9 Not Available [facility] [address] [facility] 1, [place], [address], 01/01/2025 12:30:57 01/02/20 25 01/01/2025 CBC MCH 31.7 pg 27.0-3 2.0 Not Available [facility] [address] [facility] 1, [place], [address], 01/01/2025 12:30:57 01/02/20 25 01/01/2025 CBC MCHC 33.8 g/dL 32.0-3 6.0 Not Available [facility] [address] [facility] 1, [place], [address], 01/01/2025 12:30:57 01/02/20 25 01/01/2025 CBC RDW 13.9 % 11.5-1 4.5 Not Available [facility] [address] [facility] 1, [place], [address], 01/01/2025 12:30:57 01/02/20 25 01/01/2025 CBC plt 271.2 x10 140.0- 451.0 Not Available [facility] [address] [facility] 1, [place], [address], 01/01/2025 12:30:57 01/02/20 25 01/01/2025 CBC lymphocytes % 38.4 % 20.0-5 0.0 Not Available [facility] [address] [facility] 1, [place], [address], 01/01/2025 12:30:57 01/02/20 25 01/01/2025 CBC granulcytes % 49.9 % 30.0-7 0.0 Not Available [facility] [address] [facility] 1, [place], [address], 01/01/2025 12:30:57 01/02/20 25 01/01/2025 CBC monocytes % 10.3 % 2.0-16 .0 Not Available [facility] [address] [facility] 1, [place], [address], 01/01/2025 12:30:57 01/02/20 25 01/01/2025 CBC granulcytes# 4.1 x10 Not Sherice ilable [facility] [address] [facility] 1, [place], [address], 01/01/2025 12:30:57 01/02/20 25 01/01/2025 CBC lymphocytes # 3.1 x10 Not Available [facility] [address] [facility] 1, [place], [address], 01/01/2025 12:30:57 01/02/20 25 01/01/2025 CBC monocytes # 0.8 x10 Not Avai lable [facility] [address] [facility] 1, [place], [address], 01/01/2025 12:30:57 01/02/20 25 01/01/2025 CMP (FEMA LE) glucose 85.0 mg/dL 60.0-9 9.0 Not Available [facility] [address] [facility] 1, [place], [address], 01/01/2025 12:33:14 01/02/20 25 01/01/2025 CMP (FEMA LE) BUN (blood urea nitrogen) 28.0 mg/dL 10.0-2 6.0 high Not Available [facility] [address] [facility] 1, [place], [address], 01/01/2025 12:33:14 01/02/20 25 01/01/2025 CMP (FEMA LE) creatinine (serum) 0.8 mg/dL 0.4-1. 5 Not Available [facility] [address] [facility] 1, [place], [address], 01/01/2025 12:33:14 01/02/20 25 01/01/2025 CMP (FEMA LE) BUN/creatini ne ratio 35.00 ratio Not Available [facility] [address] [facility] 1, [place], [address], 01/01/2025 12:33:14 01/02/20 25 01/01/2025 CMP (FEMA LE) eGFR calculated 73.2 Not Available [facility] [address] [facility] 1, [place], [address], 01/01/2025 12:33:14 01/02/20 25 01/01/2025 CMP (FEMA LE) total protein 8.1 g/dL 6.0-8. 5 Not Available [facility] [address] [facility] 1, [place], [address], 01/01/2025 12:33:14 01/02/20 25 01/01/2025 CMP (FEMA LE) total bilirubin 0.7 mg/dL 0.2-1. 3 Not Available [facility] [address] [facility], [place], [address], 01/01/2025 12:33:14 01/02/20 25 01/01/2025 CMP (FEMA LE) albumin 4.5 g/dL 3.5-5. 5 Not Available [facility] [address] [facility] 1, [place], [address], 01/01/2025 12:33:14 01/02/20 25 01/01/2025 CMP (FEMA LE) globulin 3.6 calc Not Available [facility] [address] [facility] 1, [place], [address], 01/01/2025 12:33:14 01/02/20 25 01/01/2025 CMP (FEMA LE) AST (SGOT) 30.0 U/L 0.0-46 .0 Not Available [facility] [address] [facility] 1, [place], [address], 01/01/2025 12:33:14 01/02/20 25 01/01/2025 CMP (FEMA LE) altv (SGPT) 18.0 U/L 13.0-6 9.0 normal Not Available [facility] [address] [facility], [place], [address], 01/01/2025 12:33:14 01/02/20 25 01/01/2025 CMP (FEMA LE) A/G ratio 1.3 ratio Not Available [facility] [address] [facility] 1, [place], [address], 01/01/2025 12:33:14 01/02/20 25 01/01/2025 CMP (FEMA LE) ALP phos 89.0 U/L 30.0-1 40.0 normal Not Available [facility] [address] [facility] 1, [place], [address], 01/01/2025 12:33:14 01/02/20 25 01/01/2025 CMP (FEMA LE) calcium 10.6 mg/dL 8.4-10 .5 high Not Available [facility] [address] [facility] 1, [place], [address], 01/01/2025 12:33:14 01/02/20 25 01/01/2025 CMP (FEMA LE) sodium 141.0 mmol/ L 136.0- 145.0 Not Available [facility] [address] [facility] 1, [place], [address], 01/01/2025 12:33:14 01/02/20 25 01/01/2025 CMP (FEMA LE) potassium 4.4 mmol/ L 3.5-5. 1 Not Available [facility] [address] [facility] 1, [place], [address], 01/01/2025 12:33:14 01/02/20 25 01/01/2025 CMP (FEMA LE) chloride 100.0 mmol/ L 98.0-1 10.0 normal Not Available [facility] [address] [facility] 1, [place], [address], 01/01/2025 12:33:14 01/02/20 25 01/01/2025 CMP (FEMA LE) C02 34.0 mmol/ L 22.0-3 1.0 high Not Available [facility] [address] [facility] 1, [place], [address], 01/01/2025 12:33:14 01/02/20 25 01/01/2025 CMP (FEMA LE) anion gap 7.0 calc Not Available [facility] [address] [facility] 1, [place], [address], 01/01/2025 12:33:14 01/02/20 25 01/01/2025 CMP (FEMA LE) osmolality 295.6 calc Not Available [facility] [address] [facility] 1, [place], [address], 01/01/2025 12:33:14 01/02/20 25 01/01/2025 LIPID PROFI LE (FEMA LE) cholesterol 250.0 mg/dL 0.0-20 0.0 high Not Available [facility] [address] [facility] 1, [place], [address], 01/01/2025 12:33:17 01/02/20 25 01/01/2025 LIPID PROFI LE (FEMA LE) trig 245.0 mg/dL 0.0-15 0.0 high Not Available [facility] [address] [facility] 1, [place], [address], 01/01/2025 12:33:17 01/02/20 25 01/01/2025 LIPID PROFI LE (FEMA LE) HDL - direct 40.0 mg/dL >40.0 Not Available [facility] [address] [facility] 1, [place], [address], 01/01/2025 12:33:17 01/02/20 25 01/01/2025 LIPID PROFI LE (FEMA LE) VLDL - direct 49.0 mg/dL Not Available [facility] [address] [facility] 1, [place], [address], 01/01/2025 12:33:17 01/02/20 25 01/01/2025 LIPID PROFI LE (FEMA LE) LDL - direct 161.0 mg/dL 0.0-13 0.0 high Not Available [facility] [address], [place], [address], 01/01/2025 12:33:17 Result Notes None recorded. Problems Name Problem SNOMED Code Status Onset Date Resolution Date Notes Provider Name and Address Organization Details Recorded Time Surgical follow-u p 071696256 Completed 12/31/[address] [facility] 16:45:32 Chronic constipa tion 016450869 Active Mere shannon 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 12:05:56 Hyperten sive disorder 69434969 Completed 12/31/2024 Removal Reason: duplicat e Mere shannon [facility] 16:46:36 History of malignan t neoplasm of breast 715151845 Active Mere shannon [facility] 16:44:28 Acute urinary tract infectio n 643945361 Completed 12/31/2024 Ben Yi MD [address] [place] [address], [phone], [facility] 15:29:46 Carpal tunnel syndrome 09777635 Completed 01/01/2025 Removal Reason: s/p surgery Ben Yi MD [address] [place] [address], [phone], [facility] 5 12:04:24 History of total hip arthropl asty 23194695392 6 Completed 01/01/2025 Ben Yi MD [address] [place], [address], [facility] 5 12:06:06 Cerebrov ascular accident 299876644 Completed 202101/01/2025 STROKE; 06/30/20 3:06PM by Arturo Hernandezic al Summary; Promoted ; acuity set as *; Ben Yi MD [address] [place], [address], [facility] 5 12:07:52 Chronic bronchio litis 229584303 Active 2021 CHRONIC BRONCHIO LITIS; 06/30/20 22 3:04PM by Arturo Hernandezic al Summary; Promoted ; acuity set as *; JENNIFER shannon, [facility] 5 20:47:29 Bilatera l stenosis of carotid arteries 757166507 Active 2021 BILATERA L CAROTID ARTERY STENOSIS WITHOUT CEREBRAL INFARCTI ON; 06/30/20 22 3:07PM by Katty Hernandez al Summary; Promoted ; acuity set as *; Mere shannon, [facility] 5 10:13:12 Hyperlip idemia 14988330 Active 2021 HYPERLIP EMIA; 06/30/20 22 3:06PM by Katty Hernandez al Summary; Promoted ; acuity set as *; Mere shannon, [facility] 5 16:44:46 Closed injury of head 09137062351 6 Completed 202112/31/2024 CLOSED HEAD INJURY; 06/30/20 22 3:04PM by Jennifer Bernardino, Historic al Summary; Promoted ; acuity set as *; Mere shannon [facility] 5 16:47:26 Gastroes ophageal reflux disease 098086748 Active 2021 GERD (GASTROE SOPHAGEA L REFLUX DISEASE) ; Impressi on: sx controll ed on current medicati ons.; Recorded 07/08/20 10:44AM by Ben Yi MD, Office Visit; Promoted ; acuity set as *; Mere shannon [facility] 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 5 12:06:55 Primary malignan t neoplasm of female breast 62984770 Completed 202201/01/2025 Ben Yi MD [address] [place] [address], [address], [facility] 5 12:07:23 Essentia l hyperten haider 58033242 Active [address] [facility] 5 16:43:37 Hammer toe 199408469 Active [address] [facility] 5 16:46:51 Frail elderly 804062543 Active [address] [facility] 12:43:26 Congesti ve heart failure 27744349 Active 2024 Ben Yi MD [address] [place] [address], [address], [facility] 16:53:57 Vascular dementia 270041804 Active 2024 Ben Yi MD [address] [place] [address], [address], [facility] 5 08:45:36 Acute urinary tract infectio n 950587603 Active 2024 Ben Yi MD [address] [place] [phone], [facility] 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 Procedures Surgical History Date Name Laterality Status Provider Name and Address Organization Details Recorded Time procedure on hip completed [facility] 01/01/2025 10:57:34 Imaging Results None recorded. Procedure Notes None recorded. Medical Equipment None Reported. Allergies Allergen ID Allergen Name Allergen Category Reaction Reaction Severity Criticality Documentation Date Start Date Code Code System Note Provider Name and Address Organization Details Recorded Time 38116 adhesive bandage-a dhes.patsy vr1 medicatio n Not available Not available Not available 05/29/2023 Comme nt: Recor ded 07/08 9:11A M by There sa Alvarez , Offic e Visit ; [employer] [place]; Signi bryson ce: *; Reaso n: Drug aller gy; ; Not Available [employer] 3 02:25:20 34487 Vaccine product containin g only influenza virus antigen (medicina l product) medicatio n Not available Not available Not available 05/29/2023 78479 67227 105 SNOMED Comme nt: Recor ded 07/08 9:11A M by There sa Alvarez , Offic e Visit ; [employer] [place]; Signi fican ce: *; Reaso n: Drug aller gy; ; Ben Yi MD [address] [place], [address] , [facility] 4 12:11:50 Medications Name Sig Start Date Stop Date Status Note LastModified by Organization Details LastModified Time losartan 50 mg tablet TAKE 1/2 (ONE-NOE F) TABLET BY MOUTH ONCE DAILY active Not Available Not Available No t Available atorvasta tin 40 mg tablet Take 1 tablet every day by oral route at bedtime. 2024 active Not Available Not Available Not Avai lable carvedilo l 6.25 mg tablet TAKE 2 TABLETS BY MOUTH TWICE DAILY active Not Available Not Available No t Available hydrocodo ne 5 mg-acetam inophen 325 mg [...] completed Not Available Not Available Not Available sulfameth oxazole 800 mg-trimet hoprim 160 mg tablet TAKE 1 TABLET BY MOUTH TWICE DAILY FOR 3 DAYS 07/03 completed Not Available Not Available Not Available triamcino lone acetonide 0.1 % topical cream APPLY A THIN LAYER TO THE AFFECTED AREA(S) BY TOPICAL ROUTE 2 TIMES PER DAY 03/24 completed Not Available Not Available Not Available spironola ctone 25 mg tablet TAKE 1/2 (ONE-NOE F) TABLET BY MOUTH ONCE DAILY active Not Available Not Available No t Available tamsulosi n 0.4 mg capsule TAKE [...] Not Available Not Available Not Avai lable diclofena c sodium 75 mg tablet,de layed release Take 1 tablet twice a day by oral route. active Not Available Not Available No t Available mupirocin 2 % topical ointment APPLY A SMALL AMOUNT OF OINTMENT TOPICALL Y TO AFFECTED AREA THREE TIMES DAILY 07/03 completed Not Available Not Available Not Available timolol maleate 0.5 % eye drops two [...] at bedtime 06/25 completed 0; Recorded 07/08/20 22 9:10AM [...] Updated DateTime 5 157.48 cm 21.9 kg/m2 95251.2 9 g 97.4 [degF] 99 % 99 % 51 /min 146/82 mm[Hg] DALE MARTINEZ [facility] 5 11:00:47 Date Recorded Body height Body mass index (BMI) Body weight Oxygen saturation Oxygen saturation in Arterial blood by Pulse oximetry Heart rate Respiratory rate Body temperature Systolic And Diastolic Provider Name and Address Organization Details Last Updated DateTime 5 157.48 cm 21.9 kg/m2 91395.0 8 g 99 % 99 % 84 /min 16 /min 98.2 [degF] 140/80 mm[Hg] Jo Stewart [facility] 5 12:08:46 Date Recorded Body height Respiratory rate Body mass index (BMI) Body weight Body temperature Heart rate Oxygen saturation Oxygen saturation in Arterial blood by Pulse oximetry Systolic And Diastolic Provider Name and Address Organization Details Last Updated DateTime 4 157.48 cm 20 /min 21.7 kg/m2 69144.7 g 97 [degF] 80 /min 96 % 96 % 120/78 mm[Hg] [facility] 4 11:42:24 Date Recorded Body height Body mass index (BMI) Body weight Oxygen saturation Oxygen saturation in Arterial blood by Pulse oximetry Heart rate Respiratory rate Body temperature Systolic And Diastolic Provider Name and Address Organization Details Last Updated DateTime 5 157.48 cm 22.1 kg/m2 25687.2 4 g 99 % 99 % 63 /min 18 /min 97.1 [degF] 120/68 mm[Hg] Mere Ayaz [facility] 5 16:30:43 Date Recorded Body height Respiratory rate Body mass index (BMI) Body weight Body temperature Oxygen saturation Oxygen saturation in Arterial blood by Pulse oximetry Heart rate Systolic And Diastolic Provider Name and Address Organization Details Last Updated DateTime 4 157.48 cm 20 /min 21.1 kg/m2 61192.9 2 g 97.4 [degF] 98 % 98 % 88 /min 120/74 mm[Hg] [facility] 4 11:26:19 Social History Question Answer Notes LastModified by [email or web address] Details LastModified Time Tobacco Smoking Status Never Smoker [facility] 01/01/2025 10:56:21 Are You Blind Or Do You Have Difficulty Seeing? No Information not available 01/01/2025 What Is Your Level Of Caffeine Consumption? Occasional Information not available 01/01/2025 Are You Deaf Or Do You Have Serious Difficulty Hearing? No Information not available 01/01/2025 What Was The Date Of Your Most Recent Tobacco Screening? 06/11/2025 [email or web address] Information not available 06/11/2025 Sex: Unknown Functional Status Question Answer Note LastModified by Organizat ion Details LastModified Time Do you use any illicit or recreational drugs? No Information not available 01/01/2025 What is your level of alcohol consumption? None Information not available 01/01/2025 Are you currently employed? No Information not available 01/01/2025 Are you able to walk independently without assistance or assistive devices? YESWOREST Information not available 01/01/2025 Are you able to care for yourself independently? Yes Information not available 01/01/2025 Mental Status Question Answer Note [...] Time zoster recombinant [address] [facility] 06/16/2024 17:38:13 zoster recombinant [address] [facility] 06/16/2024 17:38:13 COVID-19, mRNA, LNP-S, PF, 30 mcg/0.3 mL dose [address] [facility] 06/16/2024 17:38:13 COVID-19, mRNA, LNP-S, PF, 30 mcg/0.3 mL dose, roddy-sucrose [address] [facility] 06/16/2024 17:38:13 Pneumococcal conjugate PCV20, polysaccharide IMT303 conjugate, adjuvant, PF 4 completed Ben Yi MD [address] [place] [address], [phone], [facility] 06/26/2024 15:25:09 Influenza, adjuvanted, trivalent, PF 4 completed Ben Yi MD [address] [place] [address], [phone], [facility], Mary 06/26/2024 15:25:09 Past Encounters Encounter ID Performer Location Encounter Start Date Encounter Closed Date Diagnosis/Indication Diagnosis SNOMED-CT Code Diagnosis ICD10 Code Diagnosis IMO Codes Diagnosis Note [id number] Ben Yi MD [facility] ([facility]) [address] [place] [phone] 10/05/2023 14:33:12 10/05/2023 16:56:53 Psoriasis 1329675 L40.9 Possibly psoriasis on her skin. Will treat with steroids. Follow-up if rash returns. Malignant lymphoma of extranodal AND/OR solid organ site 83195945 C85.99 Primary ma lignant neoplasm of female breast 30792267 C50.912 Hyperlipidemia 53285921 E78.5 Spinal jacinto nosis of lumbar region 73839409 M48.062 Essential hypertension 06202840 I10 Patient had elevation of her blood pressure but it is improved today. The patient is not checking it at home, so encouraged her to do so. Follow-up if continued elevations of blood pressure are noted. Encouraged patient to make routine follow-ups . Follow-up in 3 months. [id number] Ben Yi MD [facility] ([facility]) [address] [place] [phone] 11/25/2023 11:30:27 11/28/2023 20:27:06 Cellulitis 792740411 L03.90 Concerned about infection developing in the wound. Will start antibiotic s. Discussed wound care with patient. Follow-up with PCP if symptoms do not improve or worsen. [id number] Ben Yi MD [facility] ([facility]) [address] [place] [phone] 02/03/2024 10:35:25 02/03/2024 11:23:03 Dog bite of hand 449170630 S61.451A Does takePatien t reports that the [...] symptoms change or wound does not improving. [id number] Ben Yi MD [facility] ([facility]) [address] [place] [phone] 5 02/07/2024 11:23:21 02/07/2024 12:01:27 Dog bite of hand 007376431 S61.451A Concerned that the infection is contributi ng to the patient's pain. The wound itself does not look infected. Mended applying wet-to-dry dressings and this was demonstrat ed to the patient. Complete course of antibiotic s. Will follow-up in 1 week. [id number] MANN JSOE [facility] ([facility]) [address] [place] [phone] 5 02/11/2024 14:49:21 02/11/2024 16:05:32 Dog bite of hand 147394491 S61.451D Discussed to continue washing with soap and water daily. Keep area covered when outside. May open to air when inside. Return for wound check if you develop redness, purulent drainage, increased pain, or concerns arise. [id number] Ben Yi MD [facility] ([facility]) [address] [place] [phone] 5 03/24/2024 14:25:37 03/24/2024 15:10:10 Essential hypertension 39186978 I10 Reviewed pressure log. She has labile [...] months or sooner if there are issues. [id number] Ben Yi MD [facility] ([facility]) [address] [place] [phone] 06/26/2024 11:35:08 06/26/2024 12:44:53 Essential hypertension 68792922 I10 Continue amlodipine . Continue monitoring blood pressure at home. Active or passive immunization 334301165 Z23 The patient is agreeable for flu shot today. The patient never got her second pneumonia shot so we will do a Prevnar 20 today. Chronic constipation 236 653004 K59.09 stable Bilateral stenosis of carotid arteries 515162139 I65.23 no sx Malignant tumor of breast 052466055 C50.919 follows with oncology [id number] Ben Yi MD [facility] ([facility]) [address] [place] [phone] 5 10/02/2024 11:06:46 10/02/2024 11:42:05 Foot pain 57056113 M79.672 Given the patient's concerns and the state of her foot, podiatry referral would be warranted. Patient was agreeable with this plan. Hammer toe [id number] M20 .42 [id number] Ben Yi MD [facility] ([facility]) [address] [place] [phone] 01/01/2025 10:44:30 01/01/2025 11:21:10 Essential hypertension [id number] I10 Given the elevations in blood pressure I do recommend that we restart blood pressure medication s. With amlodipine to 2.5 mg that she was tolerating this medication previously . Degenerati on of lumbar intervertebral disc [id number] M51.369 Patient denies any significan t back pain or pain concerns today. Hyperlipidemia [id number] E78.5 Bilateral stenosis of carotid arteries [id number] I65.23 no sx Chronic bronchiolitis 73 4403764 J44.9 Chronic constipation 236 518117 K59.09 stable Gastroesop hageal reflux disease [id number] K21.9 History of fall [id number] 9 Z91.81 Frail elderly [id number] R54 Need for medicine [facility] care assistance [phone] [id number] Z74.1 [id number] MANN JOSE [facility] ([facility]) [address] [place] [phone] 06/11/2025 12:03:49 06/11/2025 12:38:15 Post-traumatic wound infection [id number] T14.8XXA L08.9 [id number] Discussed to wash with soap and water daily. Apply mupirocin 3 times a day and apply a gauze pad for next 4 days. If you develop increased redness or concerned for worsening infection then return for re-evaluat ion [id number] Ben Yi MD [facility] ([facility]) [address] [place] [phone] 07/03/2025 15:51:49 07/03/2025 17:19:17 Essential hypertension 84461805 I10 Monitor blood pressure at home. Congestive heart failure 08629695 I50.20 [id number] Son had questions about her blood pressure medication s including carvedilol and spironolac tone. The reasons for these medication s was discussed with the son. Frail elderly [id number] R54 Did not would benefit from continued physical therapy. Will put a referral to home health to help with this. Acute urin michelle tract infection 509189330 N39.0 [id number] The patient is recovering well from her infection. The patient did have some delirium in her hospital stay. 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 Adjust medication s to slow progressio n and the patient and her son do not wish to proceed due to the potential side effects. Health Concerns Section Related Observation LastModified by Organization Detai ls LastModified Time None Recorded Concern Status LastModified by Organization Details LastModified Time None Recorded Advance Directives Directive None Recorded Payers Insurance Date Sequence Insurance Name Policy Number Policy Lee Covered Member ID Lee Member ID Guarantor Name 01/01/2025 1 [place] [id number] Jenna Nye [id number] Jenna Nye 07/10/2025 1 [place]/A DVANTAGE - PPO) [id number] Jenna Nye [id number] Jenna Nye Notes Date Note Type Note Provider Name and Address Organization Details Recorded Time 4 text/html Annual WellnessReported by PatientSocial/Behavioral HistoryFor diet and nutrition, patient reportshealthy diet. For fracture risk, patient reportsno history of fractures,no recent explained fracture,no sudden unexplained fractures, andno previous musculoskeletal injuries. For physical activity, patient reportsdiscussed weightbearing activitiesanddiscussed exercise habits. For additional lifestyle factors, patient reportsno tobacco useandno alcohol intake.Mental Status:For depression risk, patient reportsnever feels sad, empty, or tearful,no loss of interest in activities,no significant changes in weight,no sleep disturbances or insomnia,no agitation,no loss of energy,no feelings of worthlessness or guilt,no thoughts of suicide,no history of depression, andno history of mood disorders.Functional AbilityFor hearing, patient reportsno loss of hearing. For vision, patient reportsno vision problems. This is an 78-year-old female comes in today for routine follow-up. Patient denies any acute concerns today. Has been checking her blood pressure at home and it is good when she checks it at home. Patient is tolerating her medication without any issues. Ben Yi MD [address] [place] [address], [phone], [facility] 06/26/2024 15:32:14 4 text/html This is an 79-year-old female comes in today with left foot pain. The patient has a callus on the bottom of her left foot that has been hurting and bothering her. Also has calluses on the tips of her toes of the same foot. Ben Yi MD [address] [place] [address], [phone], [facility] 10/03/2024 13:29:17 5 text/html Hypertension IM/FMReported by PatientHPIFor associated symptoms, patient reportsheadachesbut reportsno shortness of breath,no palpitations,no numbness,no tingling, andno chest pain. For quality, patient reportshere for check-up. This is an 79-year-old female that comes [...] denies any concerns today. Ben Yi MD [address] [place] [address], [phone], [facility], [place]. 01/01/2025 12:21:23 5 text/html LacerationReported by PatientROS as noted in the HPI walk in patientpatient is here today for a skin tear on her right arm from hitting a wall in her home, patient did this last week and said that the tear is very painful. MANN JOSE [address] [place] [address], [phone], [facility], [place]. 06/11/2025 12:24:21 5 text/html 1-year-old female comes in today for hospital follow-up. The patient went to the hospital with strokelike symptoms and was found to have a UTI and was admitted. The patient was placed on antibiotics and is doing better. Patient was also noted to have heart failure and medication adjustments have been made. The patient's son had questions on her medications. Patient initially had difficulty with ambulation at discharge but is now doing significantly better. Her son is helping to care for her at this time. Ben Yi MD [address] [place] [address], [phone], [facility], LDonavanLJimi. 07/05/2025 15:32:15 OBGyn Episode No OBEpisode recorded.
--- OUTSIDE RECORDS SUMMARY | 2025-07-29 08:25 | XMS_ITS | Encounter Summary ---
Author Organization [facility] Address [address] [place] [address] Care Team Providers Care Tenter Frame Operator Name Role Phone Unavailable Primary Care Provider Unavailabl e Encounter Details Date Type Department Care Team (Late st Contact Info) Description 10/16/2020 Ancillary Orders [facility] Pre-Registration [place] CALL TO MAKE APPOINTMENT ONLY [address] [place] [address] Carl Thompson MD [address] [place] [address] Non-Hodgkin lymphoma, unspecified, extranodal and solid organ sites (CMS/HCC); Malignant neoplasm of upper-outer quadrant of left female breast (CMS/HCC); Estrogen receptor positive status (ER+); 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
[2025-07-29 08:33] VITALS: BP 199/75; PULSE 52; RESP 14; TEMP 36.7; O2SAT 96; BMI 21.9
--- NOTE | 2025-07-29 08:46 | XRR_ITS ---
PROCEDURE INFORMATION: Exam: XR Right Hip Exam date and time: 07/29/2025 8:55 AM Age: 80 years old Clinical indication: Hip pain; Right hip; Prior surgery; Surgery date: 6+ months; Surgery type: Obi hip. No history of recent trauma is provided. TECHNIQUE: Imaging protocol: Radiologic exam of the right hip. 2image(s) are provided. Views: 1 view hip with pelvis when performed. COMPARISON: 1. CR XR hip RT 2-3V wo/w pel* [id number] 05/17/2025 10:34 AM 2. CR (PELVIS, ) 06/15/2025 7:37 PM 3. CR (ABDOMEN, ) 05/12/2025 6:[address] chest abdpel w/*[id number] 09/01/2024 12:34 PM report FINDINGS: Bones/joints: There appear to be some mild degenerative changes of the pubic symphysis as well as right sacroiliac joint. The included sacral arcuate lines appear grossly intact overall. No interval displaced fracture or dislocation is appreciated. There is similar overall alignment of the right hip hardware with no significant interval periprosthetic lucency currently appreciated. There is slightly decreased bone mineralization overall. There appears to be some marginal spurring of the greater trochanter similar overall. There appear to be some degenerative changes of the lumbosacral junction. Soft tissues: No radiopaque foreign body or subcutaneous emphysema is appreciated.Atherosclerotic vascular changes are demonstrated. No other significant interval changes are appreciated. XR/XR hip RT 2-3V wo/w pel* [id number] IMPRESSION: Osseous and surgical hardware alignment appear maintained. No interval fracture or dislocation is appreciated.
[2025-07-29 08:49] LABS: Glucose Urine UA Negative (Normal); Nitrate Urine Negative (Negative); Specific Gravity, Urine 1.005 (1.005-1.030)
--- NOTE | 2025-07-29 08:52 | ED_ITS ---
HPI - Back Pain/Injury General: Chief Complaint: Back Pain/Injury Stated Complaint: R hip pain, R side back pain Time Seen by Provider: 07/29/25 08:27 History of Present Illness: 80-year-old female with a history of hip prosthesis who presents to the emergency room with right hip pain. No trauma. She says in the past she has had some musculoskeletal pain with it. She had a hip replacement there. There is also 1 time had a urinary tract infection when she was having hip pain. No fevers. No altered mental status. She is ambulatory. Related Data Home Medications ?Medication ?Instructions ?Recorded ?Confirmed bismuth subsalicylate 262 mg/15 mL 262 mg PO DAILY PRN Diarrhea 01/18/24 06/28/25 oral suspension (Pepto-Bismol) brimonidine 0.1 % eye drops 1 drp ophthalmic (eye) BID 01/18/24 06/28/25 (Alphagan P) magnesium hydroxide 400 mg/5 mL 30 ml PO QPM PRN Const ipation 01/18/24 06/28/25 oral suspension (Milk of Magnesia) sennosides 25 mg tablet (Ex-Lax 25 mg PO DAILY PRN Con stipation 01/18/24 06/28/25 Maximum Strength) sodium phosphates 19 gram-7 118 ml AK DAILY PRN Consti pation 01/18/24 06/28/25 gram/118 mL enema (Fleet Enema) amlodipine 2.5 mg tablet 2.5 mg PO DAILY 05/26/24 mupirocin 2 % topical ointment See Rx Instructions .Ro [place] .COMPLEX 06/23/25 06/28/25 Previous Rx's ?Medication ?Instructions ?Recorded aspirin 81 mg tablet,delayed 81 mg PO DAILY #30 tabs 0 06/27/25 release carvedilol 6.25 mg tablet 12.5 mg (2 x 6.25 mg) PO BID #60 06/27/25 tabs losartan 50 mg tablet 25 mg (1/2 x 50 mg) PO DAILY #30 06/27/25 tabs risperidone 0.25 mg tablet 0.25 mg PO BEDTIME PRN agit ation 06/27/25 #30 tabs spironolactone 25 mg tablet 12.5 mg (1/2 x 25 mg) PO D AILY #15 06/27/25 tabs Allergies Allergy/AdvReac Type Severity Reaction Status Date / Time adhesive tape Allergy ALGY-Rash Verified 07/29/25 08:31 Influenza Virus Vaccines Allergy ALGY-Rash Verified 07/29/25 08:31 Review of Systems Narrative: Constitutional symptoms: Negative except as documented in HPI. Skin symptoms: Negative except as documented in HPI. Eye symptoms: Negative except as documented in HPI. ENMT symptoms: Negative except as documented in HPI. Respiratory symptoms: Negative except as documented in HPI. Cardiovascular symptoms: Negative except as documented in HPI. Gastrointestinal symptoms: Negative except as documented in HPI. Genitourinary symptoms: Negative except as documented in HPI. Musculoskeletal symptoms: Negative except as documented in HPI. Neurologic symptoms: Negative except as documented in HPI. Psychiatric symptoms: Negative except as documented in HPI. Endocrine symptoms: Negative except as documented in HPI. 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 status post radiation therapy and hormonal therapy, currently on Femara Stroke (cerebrum) Hx of stroke in February 07, 2019 Spondylolisthesis of cervical region Cervical disc disorder with myelopathy of mid-cervical region Chronic bronchitis Surgical History History of colonoscopy 2020 S/P total left hip arthroplasty Date of procedure: February 10, 2022 Diagnosis: Severe osteoarthritis left hip Procedure done: Left total hip arthroplasty Implants: The eCullet total hip system with the following implants: A 46 mm by C Trident II solid back acetabular shell, an MDM cementless liner 36 mm inner diameter by C alpha code and Accolade II size 4 with 127 degree neck angle hip stem with a 22.2 mm outer diameter +0 mm neck offset femoral head and a mu-ism X3 insert size 22.2 mm inner diameter by 36C Status post carotid endarterectomy History of left breast biopsy Port-A-Cath in place 04/16/20 History of cholecystectomy History of hysterectomy / BSO / appendectomy H/O total hip arthroplasty Right Social History Smoking and tobacco/nicotine status: never used tobacco/nicotine Alcohol intake: never Substance/Drug Use: never Lives independently: Yes Household members: spouse Marital status: Current occupational status: retired Physical Exam Narrative: EXAM NARRATIVE: General: Alert, no acute distress. Skin: warm and dry Head: Normocephalic Neck: Trachea midline Eye: Extraocular movements are intact. Ears, nose, mouth and throat: Oral mucosa moist Respiratory: Respirations are non-labored Musculoskeletal: Normal ROM Gastrointestinal: Abdomen does not appear distended Neurological: Alert and oriented, No focal neurological deficit observed. Psychiatric: Cooperative, appropriate mood & affect. Course Vital Signs: Vital signs: Vital Signs Temperature 98.0 F 07/29/25 08:33 Pulse Rate 52 L 07/29/25 08:33 Respiratory Rate 14 07/29/25 08:33 Blood Pressure 199/75 07/29/25 08:33 Pulse Oximetry 96 07/29/25 08:33 Oxygen Delivery Me thod Room Air 07/29/25 08:33 MDM - Back Pain/Injury Medical Decision Making Medical decision making: Differential diagnosis including but not limited to and based on the above HPI, review of systems and physical exam: Musculoskeletal hip pain but also given that she has had a urinary tract infection with this kind of pain before we will check that as well. Orders placed to evaluate differential diagnosis based on the above differential, HPI and physical exam X-ray of the right hip: Prosthesis in place. No apparent fractures or dislocations. Films were interpreted by myself the emergency room provider and pending final radiology review. Lab Review: Laboratory results were reviewed and interpreted by myself the emergency room physician. Urinalysis is negative for infection I reviewed the patient's medical record. Reexamination: Patient remained stable. No increased work of breathing. No altered mental status. No focal motor deficits. Assessment and plan: Hip pain ?IM Decadron in the emergency room - Discharged home - Discussed plan with patient. Answered any questions. - Evaluation and treatment of this problem were appropriate in the emergency s etting. Labs Laboratory Results Urine Color Yellow (Yellow) 07/29/25 08:41 Urine Appearance Clear (CLEAR) 07/29/25 08:41 Urine pH 8.5 (5-7) A 07/29/25 08:41 Ur Specific [place] 1.005 (1.005-1.030) 07/29/25 08:41 Urine Protein Negative (Negative) 07/29/25 08:41 Urine Glucose (UA) Negative (Normal) 07/29/25 08:41 Urine Ketones Negative (Negative) 07/29/25 08:41 Urine Blood Negative (Negative) 07/29/25 08:41 Urine Nitrate Negative (Negative) 07/29/25 08:41 Urine Bilirubin Negative (Negative) 07/29/25 08:41 Urine Urobilinogen 0.2 mg/dL (Negative) 07/29/25 08:41 Ur Leukocyte Esterase 1+ (Negative) A 07/29/25 08:41 Urine RBC 0-2 /hpf (0-2) 07/29/25 08:41 Urine WBC 0-5 /hpf (0-5) 07/29/25 08:41 Ur Squamous Epith Cells 0-5 /hpf (0-5) 07/29/25 08:41 Amorphous Sediment Not Reportable 07/29/25 08:41 Urine Bacteria Trace /hpf (NONE) 07/29/25 08:41 Hyaline Casts 0.40 /lpf 07/29/25 08:41 XR interpretation done by ED provider, pending radiology final review Discharge Plan Discharge Patient Disposition: Home Clinical Impression: Hip pain Condition: Stable Prescriptions: No Action amlodipine 2.5 mg tablet 2.5 mg PO DAILY magnesium hydroxide [Milk of Magnesia] 400 mg/5 mL Suspension 30 ml PO QPM PRN (Reason: Constipation) bismuth subsalicylate [Pepto-Bismol] 262 mg/15 mL Suspension 262 mg PO DAILY PRN (Reason: Diarrhea) Fleet Enema 19-7 gram/118 mL Enema 118 ml AK DAILY PRN (Reason: Constipation) Ex-Lax Maximum Strength 25 mg Tablet 25 mg PO DAILY PRN (Reason: Constipation) brimonidine [Alphagan P] 0.1 % drops 1 drp ophthalmic (eye) BID mupirocin 2 % ointment See Rx Instructions .ROUTE .COMPLEX Rx Instructions: APPLY A SMALL AMOUNT OF OINTMENT TOPICALLY TO AFFECTED AREA THREE TIMES MYRTLE Y. aspirin 81 mg Tablet,Delayed Release (Dr/Ec) 81 mg PO DAILY Qty: 30 0RF risperidone 0.25 mg Tablet 0.25 mg PO BEDTIME PRN (Reason: agitation) Qty: 30 0RF losartan 50 mg Tablet 25 mg PO DAILY Qty: 30 1RF carvedilol 6.25 mg Tablet 12.5 mg PO BID Qty: 60 1RF spironolactone 25 mg tablet 12.5 mg PO DAILY Qty: 15 1RF Discharge Orders: Discharge ED (Routine); Ordered 07/29/25 Ordered By: Jo Roland Referrals: Jackson Yi MD [Primary Care Provider, Family Practice] Discharge Diet: Usual diet Discharge Activity: Increase activity as tolerated Patient Instructions: Hip Pain (ED), Opioid Safety, Pain Management, Patient Portal & [place] Instructions Activity Restrictions/Additional Instructions: Thank you for choosing [facility] for your healthcare needs today. You have been screened and evaluated and felt safe for discharge. Health conditions do change or evolve sometimes and as such it is important that you follow up with your Primary Doctor to be re checked, 3-5 days is a general good time frame for follow up. You are always welcome to return to the ED for re assessment if your symptoms are worsening or you have new concerns Print Language: Luxembourger Coding Level of Care Code ED Weight Count Operator for Hardy Enriquez
[2025-07-29 09:22] VITALS: BP 161/117; PULSE 50; O2SAT 99
== END 2025-07-29 09:26 | disposition home or self-care (01) ==
PROVIDERS: Emergency Provider Emergency Medicine; PCP Family Medicine
DX: M25.551 Pain in right hip (principal); Z79.82 Long term (current) use of aspirin; E78.2 Mixed hyperlipidemia; Z85.3 Personal history of malignant neoplasm of breast
CPT/HCPCS: 73502; 81001; 96372; 99284; J1100

== ENCOUNTER 2025-08-01 16:02 | Emergency (ER) | payer MEDICARE, SELFPAY ==
[2025-08-01 16:06] VITALS: BP 154/90; PULSE 70; TEMP 36.5; O2SAT 97
--- OUTSIDE RECORDS SUMMARY | 2025-08-01 16:08 | XMS_ITS | Encounter Summary ---
Author Organization [facility] Address [address] [place] [address] Care Team Providers Care Plastics Nurse Name Role Phone Unavailable Primary Care Provider Unavailabl e Reason for Referral * PET Scan (Urgent) - Closed Specialty Diagnoses / Procedures Referred By Deborah rasheed Referred To Contact Radiology Diagnoses Lymphoma, non-Hodgkin's (CMS/HCC) Procedures PET TUMOR IMG W CT SKL BSE MID THG Deana Barahona FNP [address] [place] [address] Phone: tel: fax: [facility] [address] [place] [phone] Phone: tel: fax: Referral ID Status Reason Start Date Expiration Date V isits Requested Visits Authorized [id number] Closed [facility] to Schedule 08/12/2020 10/10/2020 1 1 Encounter Details Date Type Department Care Team (Late st Contact Info) Description 06/27/2020 Ancillary Orders [facility] Pre-Registration [place] CALL TO MAKE APPOINTMENT ONLY [address] [place] [address] Deana Barahona FNP [address] [place] [address] Lymphoma, non-Hodgkin's (CMS/HCC) Social History [...] Accreditation of Nuclear Medicine Laboratories (IAC Nuclear/PET). [id number] Narrative 08/15/2020 5:53 PM CDT Radionuclide PET Metabolic Tumor Imaging with CT Attenuation Correction and Anatomic Localization from Skull Base to Mid Thigh: Radiopharmaceutical: [id number] Dose: 13.9 mCi right AC IV Time of Injection: 14:40 hrs Clinical Indication: Initial treatment strategy to evaluate non-Hodgkin lymphoma. FDG (I-14-[id number]) PET imaging was performed at 15:40 hrs [...] from Skull Base to Mid Thigh: Radiopharmaceutical: [id number] Dose: 13.9 mCi right AC IV Time of Injection: 14:40 hrs Clinical Indication: Initial treatment strategy to evaluate non-Hodgkin lymphoma. FDG (Z-75-Spumkrpxdsgrnllrtc) PET imaging was performed at 15:40 hrs [...] Accreditation of Nuclear Medicine Laboratories (IAC Nuclear/PET). [id number] Deana Barahona [facility] PE ORDERABLES Final Result documented in this encounter Visit Diagnoses Diagnosis Lymphoma, non-Hodgkin's (CMS/HCC) Lymphosarcoma, unspecified site, extranodal and solid organ sites Lymphoma, non-Hodgkin's (CMS/HCC) Lymphosarcoma, unspecified site, extranodal and solid organ sites documented in this encounter
--- OUTSIDE RECORDS SUMMARY | 2025-08-01 16:08 | XMS_ITS | Clinical Summary ---
Author Organization [facility] Address [address] [place] [address] Phone Care Team Providers Care Tank Wagon Operator Name Role Phone Unavailable Primary Care [...] 2018 INFLUENZA VACCINE (#1) 2025 [place] [id number] [facility]
--- OUTSIDE RECORDS SUMMARY | 2025-08-01 16:08 | XMS_ITS | Clinical Summary ---
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
--- OUTSIDE RECORDS SUMMARY | 2025-08-01 16:08 | XMS_ITS | Data Portability ---
Author Organization [facility] Address [address] [place] [id number] Care Team Providers Care Bed Operator Name Role Phone BEN YI Primary Care [...] serum or plasma 2024 025 ZARA [facility], [address], [facility] 1, [place], [address], 12:33:14 CBC 2024 025 [place] [facility], [address] [facility] [address], [address], [place], [address], 12:30:57 lipid panel, blood 2024 025 [place] [facility], [address] [facility] [address], [address], [place], [address], 12:33:17 Referral home health referral 2024 025 [email or web address] 2 [facility], [address] [place], [address], 5 11:12:21 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 Surgeries None recorded. Imaging None recorded. Medication Orders mupirocin 2 % topical ointment 2024 025 [facility], [address], [place], [address], 17:14:01 amlodipine 2.5 mg tablet 2024 025 [facility], [address], [place], [address], 5 11:09:00 amlodipine 2.5 mg tablet 2023 025 [facility], [address], [place], [address], 5 10:55:54 Patient TargetsNo targets recorded. Patient InstructionsNo instructions recorded. 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 Referring Physician: [facility], Encounter Date: 10/02/2024 Home Health Referral for Fra il elderly Referring Physician: [facility], Encounter Date: 07/03/2025 Results Created Date Observation Date Name Description Value Unit Range Abnormal Flag Note LastModifiedBy Organization Detail LastModifiedTime 01/02/20 25 01/01/2025 CBC WBC 8.2 x10 4.0-10 .5 Not Available [facility] [address], [place], [address], 01/01/2025 12:30:57 01/02/20 25 01/01/2025 CBC RBC 4.28 x10 3.50-5 .50 Not Available [facility] [address] [facility] 1, [place], [address], 01/01/2025 12:30:57 01/02/20 25 01/01/2025 CBC HGB 13.6 g/dL 12.0-1 6.0 Not Available [facility] [address] [facility] 1, [place], [address], 01/01/2025 12:30:57 01/02/20 25 01/01/2025 CBC HCT 40.2 % 37.0-4 7.0 Not Available [facility] [address] [facility] 1, [place], [address], 01/01/2025 12:30:57 01/02/20 25 01/01/2025 CBC MCV 94.0 fL 80.0-9 9.9 Not Available [facility] [address] [facility] 1, [place], [address], 01/01/2025 12:30:57 01/02/20 25 01/01/2025 CBC MCH 31.7 pg 27.0-3 2.0 Not Available [facility] [address] [facility] 1, [place], [address], 01/01/2025 12:30:57 01/02/20 25 01/01/2025 CBC MCHC 33.8 g/dL 32.0-3 6.0 Not Available [facility] [address] [facility] [address] [facility] 1, [place], [address], 01/01/2025 12:30:57 01/02/20 25 01/01/2025 CBC RDW 13.9 % 11.5-1 4.5 Not Available [facility] [address] [facility] 1, [place], [address], 01/01/2025 12:30:57 01/02/20 25 01/01/2025 CBC plt 271.2 x10 140.0- 451.0 Not Available [facility] [address] [facility] 1, [place], [address], 01/01/2025 12:30:57 01/02/20 25 01/01/2025 CBC lymphocytes % 38.4 % 20.0-5 0.0 Not Available [facility] [address] [facility] 1, [place], [address], 01/01/2025 12:30:57 01/02/20 25 01/01/2025 CBC granulcytes % 49.9 % 30.0-7 0.0 Not Available [facility] [address] [facility] 1, [place], [address], 01/01/2025 12:30:57 01/02/20 25 01/01/2025 CBC monocytes % 10.3 % 2.0-16 .0 Not Available [facility] [address] [facility] 1, [place], [address], 01/01/2025 12:30:57 01/02/20 25 01/01/2025 CBC granulcytes# 4.1 x10 Not Sherice ilable [facility] [address] [facility] 1, [place], [address], 01/01/2025 12:30:57 01/02/20 25 01/01/2025 CBC lymphocytes # 3.1 x10 Not Available [facility] [address] [facility] 1, [place], [address], 01/01/2025 12:30:57 01/02/20 25 01/01/2025 CBC monocytes # 0.8 x10 Not Avai lable [facility] [address] [facility] 1, [place], [address], 01/01/2025 12:30:57 01/02/20 25 01/01/2025 CMP (FEMA LE) glucose 85.0 mg/dL 60.0-9 9.0 Not Available [facility] [address] [facility] 1, [place], [address], 01/01/2025 12:33:14 01/02/20 25 01/01/2025 CMP (FEMA LE) BUN (blood urea nitrogen) 28.0 mg/dL 10.0-2 6.0 high Not Available [facility] [address] [facility] 1, [place], [address], 01/01/2025 12:33:14 01/02/20 25 01/01/2025 CMP (FEMA LE) creatinine (serum) 0.8 mg/dL 0.4-1. 5 Not Available [facility] [address] [facility] 1, [place], [address], 01/01/2025 12:33:14 01/02/20 25 01/01/2025 CMP (FEMA LE) BUN/creatini ne ratio 35.00 ratio Not Available [facility] [address] [facility] 1, [place], [address], 01/01/2025 12:33:14 01/02/20 25 01/01/2025 CMP (FEMA LE) eGFR calculated 73.2 Not Available [facility] [address] [facility] 1, [place], [address], 01/01/2025 12:33:14 01/02/20 25 01/01/2025 CMP (FEMA LE) total protein 8.1 g/dL 6.0-8. 5 Not Available [facility] [address] [facility] 1, [place], [address], 01/01/2025 12:33:14 01/02/20 25 01/01/2025 CMP (FEMA LE) total bilirubin 0.7 mg/dL 0.2-1. 3 Not Available [facility] [address] [facility], [place], [address], 01/01/2025 12:33:14 01/02/20 25 01/01/2025 CMP (FEMA LE) albumin 4.5 g/dL 3.5-5. 5 Not Available [facility] [address] [facility] 1, [place], [address], 01/01/2025 12:33:14 01/02/20 25 01/01/2025 CMP (FEMA LE) globulin 3.6 calc Not Available [facility] [address] [facility] 1, [place], [address], 01/01/2025 12:33:14 01/02/20 25 01/01/2025 CMP (FEMA LE) AST (SGOT) 30.0 U/L 0.0-46 .0 Not Available [facility] [address] [facility] 1, [place], [address], 01/01/2025 12:33:14 01/02/20 25 01/01/2025 CMP (FEMA LE) altv (SGPT) 18.0 U/L 13.0-6 9.0 normal Not Available [facility] [address] [facility], [place], [address], 01/01/2025 12:33:14 01/02/20 25 01/01/2025 CMP (FEMA LE) A/G ratio 1.3 ratio Not Available [facility] [address] [facility] 1, [place], [address], 01/01/2025 12:33:14 01/02/20 25 01/01/2025 CMP (FEMA LE) ALP phos 89.0 U/L 30.0-1 40.0 normal Not Available [facility] [address] [facility] 1, [place], [address], 01/01/2025 12:33:14 01/02/20 25 01/01/2025 CMP (FEMA LE) calcium 10.6 mg/dL 8.4-10 .5 high Not Available [facility] [address] [facility] 1, [place], [address], 01/01/2025 12:33:14 01/02/20 25 01/01/2025 CMP (FEMA LE) sodium 141.0 mmol/ L 136.0- 145.0 Not Available [facility] [address] [facility] 1, [place], [address], 01/01/2025 12:33:14 01/02/20 25 01/01/2025 CMP (FEMA LE) potassium 4.4 mmol/ L 3.5-5. 1 Not Available [facility] [address] [facility] 1, [place], [address], 01/01/2025 12:33:14 01/02/20 25 01/01/2025 CMP (FEMA LE) chloride 100.0 mmol/ L 98.0-1 10.0 normal Not Available [facility] [address] [facility] 1, [place], [address], 01/01/2025 12:33:14 01/02/20 25 01/01/2025 CMP (FEMA LE) C02 34.0 mmol/ L 22.0-3 1.0 high Not Available [facility] [address] [facility] 1, [place], [address], 01/01/2025 12:33:14 01/02/20 25 01/01/2025 CMP (FEMA LE) anion gap 7.0 calc Not Available [facility] [address] [facility] 1, [place], [address], 01/01/2025 12:33:14 01/02/20 25 01/01/2025 CMP (FEMA LE) osmolality 295.6 calc Not Available [facility] [address] [facility] 1, [place], [address], 01/01/2025 12:33:14 01/02/20 25 01/01/2025 LIPID PROFI LE (FEMA LE) cholesterol 250.0 mg/dL 0.0-20 0.0 high Not Available [facility] [address] [facility] 1, [place], [address], 01/01/2025 12:33:17 01/02/20 25 01/01/2025 LIPID PROFI LE (FEMA LE) trig 245.0 mg/dL 0.0-15 0.0 high Not Available [facility] [address] [facility] 1, [place], [address], 01/01/2025 12:33:17 01/02/20 25 01/01/2025 LIPID PROFI LE (FEMA LE) HDL - direct 40.0 mg/dL >40.0 Not Available [facility] [address] [facility] 1, [place], [address], 01/01/2025 12:33:17 01/02/20 25 01/01/2025 LIPID PROFI LE (FEMA LE) VLDL - direct 49.0 mg/dL Not Available [facility] [address] [facility] 1, [place], [address], 01/01/2025 12:33:17 01/02/20 25 01/01/2025 LIPID PROFI LE (FEMA LE) LDL - direct 161.0 mg/dL 0.0-13 0.0 high Not Available [facility] [address], [place], [address], 01/01/2025 12:33:17 Result Notes None recorded. 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 12:05:56 Hyperten sive disorder 10715879 Completed 12/31/2024 Removal Reason: duplicat e Mere shannon [facility] 16:46:36 History of malignan t neoplasm of breast 280653130 Active Mere shannon [facility] 16:44:28 Acute urinary tract infectio n 810116343 Completed 12/31/2024 Ben Yi MD [address] [place] [address], [phone], [facility] 15:29:46 Carpal tunnel syndrome 96324109 Completed 01/01/2025 Removal Reason: s/p surgery Ben Yi MD [address] [place] [address], [phone], [facility] 5 12:04:24 History of total hip arthropl asty 25112136013 6 Completed 01/01/2025 Ben Yi MD [address] [place], [address], [facility] 5 12:06:06 Cerebrov ascular accident 009673975 Completed 202101/01/2025 STROKE; 06/30/20 3:06PM by rAturo Hernandezic al Summary; Promoted ; acuity set as *; Ben Yi MD [address] [place], [address], [facility] 5 12:07:52 Chronic bronchio litis 853977652 Active 2021 CHRONIC BRONCHIO LITIS; 06/30/20 22 3:04PM by Arturo Hernandezic al Summary; Promoted ; acuity set as *; JENNIFER shannon, [facility] 5 20:47:29 Bilatera l stenosis of carotid arteries 846109907 Active 2021 BILATERA L CAROTID ARTERY STENOSIS WITHOUT CEREBRAL INFARCTI ON; 06/30/20 22 3:07PM by Katty Hernandez al Summary; Promoted ; acuity set as *; Mere shannon, [facility] 5 10:13:12 Hyperlip idemia 82917663 Active 2021 HYPERLIP EMIA; 06/30/20 22 3:06PM by Katty Hernandez al Summary; Promoted ; acuity set as *; Mere shannon, [facility] 5 16:44:46 Closed injury of head 06640104894 6 Completed 202112/31/2024 CLOSED HEAD INJURY; 06/30/20 22 3:04PM by Jennifer Bernardino, Historic al Summary; Promoted ; acuity set as *; Mere shannon [facility] 5 16:47:26 Gastroes ophageal reflux disease 935729802 Active 2021 GERD (GASTROE SOPHAGEA L REFLUX DISEASE) ; Impressi on: sx controll ed on current medicati ons.; Recorded 07/08/20 10:44AM by Ben Yi MD, Office Visit; Promoted ; acuity set as *; Mere shannon [facility] 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 5 12:07:23 Essentia l hyperten haider 86573471 Active 2022 Mere shannon [facility] 5 16:43:37 Hammer toe 574735936 Active 2023 Mere shannon [facility] 5 16:46:51 Frail elderly 859336842 Active 2024 Mere shannon [facility] 12:43:26 Congesti ve heart failure 48955398 Active 2024 Ben Yi MD [address] [place] [address], [phone], [facility] 16:53:57 Vascular dementia 661385804 Active 2024 Ben Yi MD [address] [place] [address], [phone], [facility] 5 08:45:36 Acute urinary tract infectio n 356996868 Active 2024 Ben Yi MD [address] [place] [phone], [facility] 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 Procedures Surgical History Date Name Laterality Status Provider Name and Address Organization Details Recorded Time procedure on hip completed [facility] 01/01/2025 10:57:34 Imaging Results None recorded. Procedure Notes None recorded. Medical Equipment None Reported. Allergies Allergen ID Allergen Name Allergen Category Reaction Reaction Severity Criticality Documentation Date Start Date Code Code System Note Provider Name and Address Organization Details Recorded Time 56334 adhesive bandage-a dhes.patsy vr1 medicatio n Not available Not available Not available 05/29/2023 Comme nt: Recor ded 07/08 9:11A M by There sa Alvarez , Offic e Visit ; [employer] [place]; Signi bryson ce: *; Reaso n: Drug aller gy; ; Not Available [facility] 3 02:25:20 93513 Vaccine product containin g only influenza virus antigen (medicina l product) medicatio n Not available Not available Not available 05/29/2023 60263 54899 105 SNOMED Comme nt: Recor ded 07/08 9:11A M by There sa Alvarez , Offic e Visit ; [employer] [place]; Signi fican ce: *; Reaso n: Drug aller gy; ; Ben Yi MD [address] [place], [address] , [facility] 4 12:11:50 Medications Name Sig [...] Updated DateTime 5 157.48 cm 21.9 kg/m2 12022.2 9 g 97.4 [degF] 99 % 99 % 51 /min 146/82 mm[Hg] DALE MARTINEZ [facility] 5 11:00:47 Date Recorded Body height Body mass index (BMI) Body weight Oxygen saturation Oxygen saturation in Arterial blood by Pulse oximetry Heart rate Respiratory rate Body temperature Systolic And Diastolic Provider Name and Address Organization Details Last Updated DateTime 5 157.48 cm 21.9 kg/m2 14601.0 8 g 99 % 99 % 84 /min 16 /min 98.2 [degF] 140/80 mm[Hg] Jo Stewart [facility] 5 12:08:46 Date Recorded Body height Respiratory rate Body mass index (BMI) Body weight Body temperature Heart rate Oxygen saturation Oxygen saturation in Arterial blood by Pulse oximetry Systolic And Diastolic Provider Name and Address Organization Details Last Updated DateTime 4 157.48 cm 20 /min 21.7 kg/m2 40307.7 g 97 [degF] 80 /min 96 % 96 % 120/78 mm[Hg] JENNIFER [facility]James [facility] 4 11:42:24 Date Recorded Body height Body mass index (BMI) Body weight Oxygen saturation Oxygen saturation in Arterial blood by Pulse oximetry Heart rate Respiratory rate Body temperature Systolic And Diastolic Provider Name and Address Organization Details Last Updated DateTime 5 157.48 cm 22.1 kg/m2 56758.2 4 g 99 % 99 % 63 /min 18 /min 97.1 [degF] 120/68 mm[Hg] Mere Ayaz [facility] 5 16:30:43 Date Recorded Body height Respiratory rate Body mass index (BMI) Body weight Body temperature Oxygen saturation Oxygen saturation in Arterial blood by Pulse oximetry Heart rate Systolic And Diastolic Provider Name and Address Organization Details Last Updated DateTime 4 157.48 cm 20 /min 21.1 kg/m2 12897.9 2 g 97.4 [degF] 98 % 98 % 88 /min 120/74 mm[Hg] JENNIFER BERNARDINOJames E. [facility] 4 11:26:19 Social History Question Answer Notes LastModified by Evoleen Details LastModified Time Tobacco Smoking Status Never Sm[facility] 01/01/2025 10:56:21 Are You Blind [...] Time zoster recombinant 2 completed JENNIFER shannon [facility] 06/16/2024 17:38:13 zoster recombinant 3 completed JENNIFER shannon [facility] 06/16/2024 17:38:13 COVID-19, mRNA, LNP-S, PF, 30 mcg/0.3 mL dose 1 completed JENNIFER shannon [facility] 06/16/2024 17:38:13 COVID-19, mRNA, LNP-S, PF, 30 mcg/0.3 mL dose, roddy-sucrose 2 completed JENNIFER shannon [facility] 06/16/2024 17:38:13 Pneumococcal conjugate PCV20, polysaccharide HVQ103 conjugate, adjuvant, PF 4 completed Ben Yi MD [address] [place] [address], [phone], [facility] 06/26/2024 15:25:09 Influenza, adjuvanted, trivalent, PF 4 completed Ben Yi MD [address] [place] [address], [phone], [facility], Mary 06/26/2024 15:25:09 Past Encounters Encounter ID Performer Location Encounter Start Date Encounter Closed Date Diagnosis/Indication Diagnosis SNOMED-CT Code Diagnosis ICD10 Code Diagnosis IMO Codes Diagnosis Note [id number] Ben Yi MD [facility] ([facility]) [address] [place] [phone] 10/05/2023 14:33:12 10/05/2023 16:56:53 Psoriasis 1614961 L40.9 Possibly psoriasis on her skin. Will treat with steroids. Follow-up if rash returns. Malignant lymphoma of extranodal AND/OR solid organ site 81327510 C85.99 Primary ma lignant neoplasm of female breast 37781213 C50.912 Hyperlipidemia 35207077 E78.5 Spinal jacinto nosis of lumbar region 05981801 M48.062 Essential hypertension 24736995 I10 Patient had elevation of her blood pressure but it is improved today. The patient is not checking it at home, so encouraged her to do so. Follow-up if continued elevations of blood pressure are noted. Encouraged patient to make routine follow-ups . Follow-up in 3 months. [id number] Ben Yi MD [facility] ([facility]) [address] [place] [phone] 11/25/2023 11:30:27 11/28/2023 20:27:06 Cellulitis 355200697 L03.90 Concerned about infection developing in the wound. Will start antibiotic s. Discussed wound care with patient. Follow-up with PCP if symptoms do not improve or worsen. [id number] Ben Yi MD [facility] ([facility]) [address] [place] [phone] 02/03/2024 10:35:25 02/03/2024 11:23:03 Dog bite of hand 981443298 S61.451A Does takePatien t reports that the [...] symptoms change or wound does not improving. [id number] Ben Yi MD [facility] ([facility]) [address] [place] [phone] 02/07/2024 11:23:21 02/07/2024 12:01:27 Dog bite of hand 740561580 S61.451A Concerned that the infection is contributi ng to the patient's pain. The wound itself does not look infected. Mended applying wet-to-dry dressings and this was demonstrat ed to the patient. Complete course of antibiotic s. Will follow-up in 1 week. [id number] MANN JOSE [facility] ([facility]) [address] [place] [phone] 5 02/11/2024 14:49:21 02/11/2024 16:05:32 Dog bite of hand 851389705 S61.451D Discussed to continue washing with soap and water daily. Keep area covered when outside. May open to air when inside. Return for wound check if you develop redness, purulent drainage, increased pain, or concerns arise. [id number] Ben Yi MD [facility] ([facility]) [address] [place] [id number] 5 03/24/2024 14:25:37 03/24/2024 15:10:10 Essential hypertension 09846273 I10 Reviewed pressure log. She has labile [...] months or sooner if there are issues. [id number] Ben Yi MD [facility] ([facility]) [address] [place] [phone] 06/26/2024 11:35:08 06/26/2024 12:44:53 Essential hypertension 08342310 I10 Continue amlodipine . Continue monitoring blood pressure at home. Active or passive immunization 588421309 Z23 The patient is agreeable for flu shot today. The patient never got her second pneumonia shot so we will do a Prevnar 20 today. Chronic constipation 236 709215 K59.09 stable Bilateral stenosis of carotid arteries 012648803 I65.23 no sx Malignant neoplasm of breast 564031992 C50.919 follows with oncology [id number] Ben Yi MD [facility] ([facility]) [address] [place] [phone] 10/02/2024 11:06:46 10/02/2024 11:42:05 Foot pain 96246497 M79.672 Given the patient's concerns and the state of her foot, podiatry referral would be warranted. Patient was agreeable with this plan. Hammer toe 802410089 M20 .42 [id number] Ben Yi MD [facility] ([facility]) [address] [place] [id number] 01/01/2025 10:44:30 01/01/2025 11:21:10 Essential hypertension 52211211 I10 Given the elevations in blood pressure I do recommend that we restart blood pressure medication s. With amlodipine to 2.5 mg that she was tolerating this medication previously . Degenerati on of lumbar intervertebral disc 55649224 M51.369 Patient denies any significan t back pain or pain concerns today. Hyperlipidemia 83145107 E78.5 Bilateral stenosis of carotid arteries 704553582 I65.23 no sx Chronic bronchiolitis 73 8222976 J44.9 Chronic constipation 236 614487 K59.09 stable Gastroesop hageal reflux disease 817032363 K21.9 History of fall 44408992 9 Z91.81 Frail elderly 474773026 R54 Need for [facility] assistance [id number] 9356875 Z74.1 [id number] MANN JOSE [facility] ([facility]) [address] [place] [id number] 06/11/2025 12:03:49 06/11/2025 12:38:15 Post-traumatic wound infection 086664796 T14.8XXA L08.9 19471956 Discussed to wash with soap and water daily. Apply mupirocin 3 times a day and apply a gauze pad for next 4 days. If you develop increased redness or concerned for worsening infection then return for re-evaluat ion [id number] Ben Yi MD [facility] ([facility]) [address] [place] [address] 07/03/2025 15:51:49 07/03/2025 17:19:17 Essential hypertension 96855276 I10 Monitor blood pressure at home. Congestive heart failure 02571764 I50.20 [id number] Son had questions about her blood pressure medication s including carvedilol and spironolac tone. The reasons for these medication s was discussed with the son. Frail elderly [id number] Did not would benefit from continued physical therapy. Will put a referral to home health to help with this. Acute urin michelle tract infection [id number] N39.0 [id number] The patient is recovering well from her infection. The patient did have some delirium in her hospital stay. 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 Adjust [...] 01/01/2025 1 [place] [id number] Jenna Nye [id number] 44 Jenna Nye 07/10/2025 1 [place] ([place]IC[place]/A DVANTAGE - PPO) [id number] Jenna Nye [id number] Jenna Nye Notes Date Note Type [...] medication without any issues. Ben Yi MD [address] [place] [address], [phone], [facility] 06/26/2024 15:32:14 4 text/html This is an 79-year-old female comes in today with left foot pain. The patient has a callus on the bottom of her left foot that has been hurting and bothering her. Also has calluses on the tips of her toes of the same foot. Ben Yi MD [address] [place] [address], [phone], [facility] 10/03/2024 13:29:17 5 text/html Hypertension IM/FMReported [...] denies any concerns today. Ben Yi MD [address] [place] [address], [phone], [facility] [place]. 01/01/2025 12:21:23 5 text/html LacerationReported by PatientROS as noted in the HPI walk in patientpatient is here today for a skin tear on her right arm from hitting a wall in her home, patient did this last week and said that the tear is very painful. MANN JOSE [address] [place] [address], [phone], [facility] [place]. 06/11/2025 12:24:21 5 text/html 1-year-old female [...] her at this time. Ben Yi MD [address] [place] [address], [phone], [facility], [facility]imi. 07/05/2025 15:32:15 OBGyn Episode No OBEpisode recorded.
--- OUTSIDE RECORDS SUMMARY | 2025-08-01 16:08 | XMS_ITS | Encounter Summary ---
Author Organization [facility] Address [address] [place] [address] Care Team Providers Care Transportation Technician Name Role Phone Unavailable Primary Care Provider Unavailabl e Encounter Details Date Type Department Care Team (Late st Contact Info) Description 10/16/2020 Ancillary Orders [facility] Pre-Registration [place] CALL TO MAKE APPOINTMENT ONLY [address] [place] [address] Carl Thompson MD [address] [place] [address] Non-Hodgkin lymphoma, unspecified, extranodal and solid organ sites (CMS/HCC); Malignant neoplasm of upper-outer quadrant of left female breast (CMS/HCC); Estrogen receptor positive status (ER+); 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
[2025-08-01 17:01] VITALS: BP 198/89; PULSE 73; O2SAT 98
--- NOTE | 2025-08-01 17:01 | XRR_ITS ---
PROCEDURE INFORMATION: Exam: XR Chest Exam date and time: 08/01/2025 5:12 PM Age: 80 years old Clinical indication: Cough and dyspnea TECHNIQUE: Imaging protocol: Radiologic exam of the chest. Views: 1 view. COMPARISON: CR XR chest 1V portable [id number] 06/27/2025 5:08 PM FINDINGS: Lungs: Unremarkable. No consolidation. Pleural spaces: Unremarkable. No pleural effusion. No pneumothorax. Heart/Mediastinum: Unremarkable. No cardiomegaly. Bones/joints: Unremarkable. XR/XR chest 1V portable [id number] IMPRESSION: No acute cardiopulmonary abnormality.
--- NOTE | 2025-08-01 17:01 | ECG_ITS ---
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 Measurements Intervals [place] Rate: 87 P: -53 IA: 163 QRS: -7 QRSD: 123 T: -14 QT: 372 QTc: 449 Interpretive Statements ECTOPIC ATRIAL RHYTHM WITH OCCASIONAL SUPRAVENTRICULAR PREMATURE COMPLEXES ANTEROSEPTAL MYOCARDIAL INFARCTION , AGE INDETERMINATE Compared to ECG 06/27/2025 17:24:53 Ectopic atrial rhythm now present Ectopic atrial tachycardia, multifocal no longer present Intraventricular conduction delay no longer present Myocardial infarct finding still present Electronically Signed On 08-02-2025 08:34:41 CDT by Deny Alfonso M.D. [email or web address] [id number]
--- NOTE | 2025-08-01 17:15 | ED_ITS ---
HPI - Female Genitourinary 2 General: Chief complaint: Urogenital-Female Stated complaint: ABD pain going into R side confused Time Seen by Provider: 08/01/25 17:00 History of Present Illness: 80-year-old female presents emergency ro om complaining of lower abdominal pain radiating to his back complaining of some difficulty with initiating urination as well. She also reports intermittently having some confusion. She did not have any weakness no difficulty with gait or balance no vision changes or speech changes. Associated symptoms: Deny abdominal pain Related Data Home Medications ?Medication ?Instructions ?Recorded ?Confirmed bismuth subsalicylate 262 mg/15 mL 262 mg PO DAILY PRN Diarrhea 01/18/24 06/28/25 oral suspension (Pepto-Bismol) brimonidine 0.1 % eye drops 1 drp ophthalmic (eye) BID 01/18/24 06/28/25 (Alphagan P) magnesium hydroxide 400 mg/5 mL 30 ml PO QPM PRN Const ipation 01/18/24 06/28/25 oral suspension (Milk of Magnesia) sennosides 25 mg tablet (Ex-Lax 25 mg PO DAILY PRN Con stipation 01/18/24 06/28/25 Maximum Strength) sodium phosphates 19 gram-7 118 ml PA DAILY PRN Consti pation 01/18/24 06/28/25 gram/118 mL enema (Fleet Enema) amlodipine 2.5 mg tablet 2.5 mg PO DAILY 05/26/24 mupirocin 2 % topical ointment See Rx Instructions .Ro ramona .COMPLEX 06/23/25 06/28/25 Previous Rx's ?Medication ?Instructions ?Recorded aspirin 81 mg tablet,delayed 81 mg PO DAILY #30 tabs 0 06/27/25 release carvedilol 6.25 mg tablet 12.5 mg (2 x 6.25 mg) PO BID #60 06/27/25 tabs losartan 50 mg tablet 25 mg (1/2 x 50 mg) PO DAILY #30 06/27/25 tabs risperidone 0.25 mg tablet 0.25 mg PO BEDTIME PRN agit ation 06/27/25 #30 tabs spironolactone 25 mg tablet 12.5 mg (1/2 x 25 mg) PO D AILY #15 06/27/25 tabs ondansetron 4 mg disintegrating 4 mg PO Q6H PRN nausea and 08/03/25 tablet vomiting #14 tabs Allergies Allergy/AdvReac Type Severity Reaction Status Date / Time adhesive tape Allergy ALGY-Rash Verified 08/01/25 16:12 Influenza Virus Vaccines Allergy ALGY-Rash Verified 08/01/25 16:12 Review of Systems 2 Const: Denies: fever(s) or chills Card: Denies: chest pain Resp: Denies: dyspnea GI: Denies: abdominal pain : Denies: dysuria, urinary frequency or urinary urgency Musc: Denies: neck pain or back pain Skin/Breast: Denies: rash PFSH ED 2 PFSH: Medical History GERD (gastroesophageal reflux disease) Bilateral carotid artery stenosis without cerebral infarction Closed head injury Mixed hyperlipidemia 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 disc disorder 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 region Lumbar stenosis without neurogenic claudication Stenosis 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 spine 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 Pain management contract signed HX: breast cancer ER PA negative, 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 status post radiation therapy and hormonal therapy, currently on Femara Stroke (cerebrum) Hx of stroke in February 07, 2019 Spondylolisthesis of cervical region Cervical disc disorder with myelopathy of mid-cervical region Chronic bronchitis Surgical History History of colonoscopy 2019 S/P total left hip arthroplasty Date of procedure: February 10, 2022 Diagnosis: Severe osteoarthritis left hip Procedure done: Left total hip arthroplasty Implants: The [place] total hip system with the following implants: A 46 mm by C Trident II solid back acetabular shell, an MDM cementless liner 36 mm inner diameter by C alpha code and Accolade II size 4 with 127 degree neck angle hip stem with a 22.2 mm outer diameter +0 mm neck offset femoral head and a orthodox X3 insert size 22.2 mm inner diameter by 36C Status post carotid endarterectomy History of left breast biopsy Port-A-Cath in place 04/16/20 History of cholecystectomy History of hysterectomy / BSO / appendectomy H/O total hip arthroplasty Right Social History (Reviewed 08/01/25 @ 17:15 by ROSY Choe Smoking and tobacco/nicotine status: never used tobacco/nicotine Alcohol intake: never Substance/Drug Use: never Lives independently: Yes Household members: spouse Marital status: Current occupational status: retired Physical Exam 2 Const: COMMON NORMALS: no acute distress GENERAL APPEARANCE: cooperative and comfortable ORIENTATION/CONSCIOUSNESS: Yes awake, Yes oriented to person, Yes oriented to place and Yes oriented to time HENMT: COMMON NORMALS: normocephalic, atraumatic and hearing grossly normal bilaterally HEAD & SCALP: normocephalic and atraumatic Resp: COMMON NORMALS: normal respiratory effort, No retractions, No use of accessory muscles and clear to auscultation bilaterally AUSCULTATION: clear to auscultation bilaterally Cardio: COMMON NORMALS: regular rate, regular rhythm and No murmurs present (Cardio) RATE: regular rate RHYTHM: regular rhythm GI: COMMON NORMALS: Soft to palpation and No hepatosplenomegaly present A USCULTATION: Yes normoactive bowel sounds PALPATION: Yes Soft to palpation, No Tenderness to palpation present (GI), No Guarding due to palpation present (GI) and Yes No hepatosplenomegaly present Extremity: COMMON NORMALS: normal to inspection, capillary refill normal, no clubbing, cyanosis or edema, no calf tenderness and no pedal edema Neuro: SENSORIUM/ORIENTATION: Yes oriented to person, Yes oriented to place and Yes oriented to time OTHER: No focal neurologic deficits noted no facial asymmetry strength in all extremities normal no arm drift no ataxia Skin: COMMON NORMALS: no rashes or lesions noted GENERAL SKIN EXAM: no rashes or lesions noted Course 2 Vital Signs: Vital signs: Vital Signs Temperature 97.7 F 08/01/25 16:06 Pulse Rate 73 08/01/25 19:21 Blood Pressure 164/91 08/01/25 19:21 Pulse Oximetry 97 08/01/25 19:21 Oxygen Delivery Me thod Room Air 08/01/25 18:30 MDM - Female Medical Decision Making Patient does have some mild underlying cognitive dysfunction. She does have a mild cystitis as well no leukocytosis. Patient given prescription for cephalexin 5 mg 3 times a day for 7 days. Increase fluids. Follow-up with primary care. Medical Records I reviewed the patient's medical records. Lab Data I reviewed the patient's lab results. 08/01/25 17:27 08/01/25 17:27 Radiology Impressions Chest X-Ray 08/01/25 17:01 IMPRESSION: No acute cardiopulmonary abnormality. Laboratory Results WBC 10.47 10^3/uL (3.29-11.43) 08/01/25 17:27 RBC 4.49 10^6/uL (3.85-5.65) 08/01/25 17:27 Hgb 13.90 g/dL (11.27-16.99) 08/01/25 17: Hct 42.1 % (36-47) 08/01/25 17: MCV 93.8 fl (85-98) 08/01/25 17: MCH 31.0 pg (27-33) 08/01/25 17: MCHC 33.0 g/dL (30-55) 08/01/25 17: RDW 13.9 % (12.1-15.1) 08/01/25 17: Plt Count 278 10^3/cmm (157-399) 08/01/25 17: MPV 9.4 fL (7.4-10.4) 08/01/25 17: Neut % (Auto) 48.9 % 08/01/25 17: Lymph % (Auto) 35.5 % 08/01/25 17: Wake % (Auto) 13.3 % 08/01/25 17: Eos % (Auto) 1.5 % 08/01/25 17: Baso % (Auto) 0.6 % 08/01/25: Neut # (Auto) 5.12 10^3/uL (1.8-7.7) 08/01/25 17:27 Lymph # (Auto) 3.7 10^3/uL (0.8-4.8) 08/01/25 17: Wake # (Auto) 1.4 10^3/uL (0.2-0.9) H 08/01/25 17:27 Eos # (Auto) 0.2 10^3/uL (0.0-0.8) 08/01/25 17: Baso # (Auto) 0.1 10^3/uL (0.0-0.1) 08/01/25 17:27 Nucleated RBC % (auto) 0 % 08/01/25 17:27 Nucleated RBCs # 0.0 /100WBC 08/01/25 17:27 Sodium 137 mmol/L (136-145) 08/01/25 17:27 Potassium 4.2 mmol/L (3.5-5.1) 08/01/25 17:27 Chloride 102 mmol/L (98-107) 08/01/25 17:27 Carbon Dioxide 23 mmol/L (22-29) 08/01/25 17:27 Anion Gap 16.2 (5-19) 08/01/25 17:27 BUN 18 mg/dL (8-23) 08/01/25 17:27 Creatinine 0.7 mg/dL (0.5-0.9) 08/01/25 17:27 GFR Calculation Not Reportable 08/01/25 17:27 Glucose 91 mg/dL (65-115) 08/01/25 17:27 Calculated Osmolality 285 mOsm/kg (285-295) 08/01/25 17:27 Lactic Acid 1.0 mmol/L (0.5-2.2) 08/01/25 17:27 Calcium 9.8 mg/dL (8.5-10.5) 08/01/25 17:27 Total Bilirubin 0.5 mg/dL (0.15-1.2) 08/01/25 17:27 AST 22 U/L (0-32) 08/01/25 17:27 ALT 24 U/L (0-33) 08/01/25 17:27 Alkaline Phosphatase 90 U/L (35-105) 08/01/25 17:27 Total Protein 7.3 g/dL (6.6-8.7) 08/01/25 17:27 Albumin 4.0 g/dL (3.5-5.2) 08/01/25 17:27 Globulin 3.3 g/dL (1.3-4.6) 08/01/25 17:27 Urine Color Yellow (Yellow) 08/01/25 17:36 Urine Appearance Clear (CLEAR) 08/01/25 17:36 Urine pH 7.0 (5-7) 08/01/25 17:36 Ur Specific [place] 1.007 (1.005-1.030) 08/01/25 17:36 Urine Protein Negative (Negative) 08/01/25 17:36 Urine Glucose (UA) Negative (Normal) 08/01/25 17:36 Urine Ketones Negative (Negative) 08/01/25 17:36 Urine Blood Negative (Negative) 08/01/25 17:36 Urine Nitrate Negative (Negative) 08/01/25 17:36 Urine Bilirubin Negative (Negative) 08/01/25 17:36 Urine Urobilinogen 1.0 mg/dL (Negative) 08/01/25 17:36 Ur Leukocyte Esterase 2+ (Negative) A 08/01/25 17:36 Urine RBC 0-4 /hpf (0-2) H 08/01/25 17:36 Urine WBC 0-4 /hpf (0-5) H 08/01/25 17:36 Ur Squamous Epith Cells 0-4 /hpf (0-5) H 08/01/25 17:36 Amorphous Sediment Not Reportable 08/01/25 17:36 Urine Bacteria Trace /hpf (NONE) 08/01/25 17:36 Urine Mucus None /hpf 08/01/25 17:36 All radiology interpretation(s) finalized by discharge Discharge Plan Discharge Patient Disposition: Home Clinical Impression: Cystitis, Dementia Condition: Stable Prescriptions: No Action amlodipine 2.5 mg tablet 2.5 mg PO DAILY ondansetron 4 mg tablet,disintegrating 4 mg PO Q6H PRN (Reason: nausea and vomiting) Qty: 14 0RF magnesium hydroxide [Milk of Magnesia] 400 mg/5 mL Suspension 30 ml PO QPM PRN (Reason: Constipation) bismuth subsalicylate [Pepto-Bismol] 262 mg/15 mL Suspension 262 mg PO DAILY PRN (Reason: Diarrhea) Fleet Enema 19-7 gram/118 mL Enema 118 ml PA DAILY PRN (Reason: Constipation) Ex-Lax Maximum Strength 25 mg Tablet 25 mg PO DAILY PRN (Reason: Constipation) brimonidine [Alphagan P] 0.1 % drops 1 drp ophthalmic (eye) BID mupirocin 2 % ointment See Rx Instructions .ROUTE .COMPLEX Rx Instructions: APPLY A SMALL AMOUNT OF OINTMENT TOPICALLY TO AFFECTED AREA THREE TIMES DAILY. aspirin 81 mg Tablet,Delayed Release (Dr/Ec) 81 mg PO DAILY Qty: 30 0RF risperidone 0.25 mg Tablet 0.25 mg PO BEDTIME PRN (Reason: agitation) Qty: 30 0RF losartan 50 mg Tablet 25 mg PO DAILY Qty: 30 1RF carvedilol 6.25 mg Tablet 12.5 mg PO BID Qty: 60 1RF spironolactone 25 mg tablet 12.5 mg PO DAILY Qty: 15 1RF Discharge Orders: Discharge ED (Routine); Ordered 08/01/25 Ordered By: Parmjit Ovalle Referrals: Jackson Yi MD [Primary Care Provider, Family Practice] Discharge Diet: Usual diet Discharge Activity: Resume usual activity Patient Instructions: Opioid Safety, Pain Management, Patient Portal & [facility]aya Instructions Activity Restrictions/Additional Instructions: Thank you for choosing [facility] for your healthcare needs today. It is very important that you follow up as instructed or that you return to the Emergency Department should you have concerns or if your condition changes or worsens in any way. Emergency department visits are focused on emergent conditions, in some cases you may require further evaluation on an outpatient basis. You were seen in the emergency room with complaints of abdominal pain discomfort on your right side. You did not have a significant white count there is some suggestion of a mild bladder infection on your urine. Urine will be cultured recommend you start on some oral antibiotics till the cultures resulted. If you have any further problems feel free to return to the emergency room. (Please note that included in your discharge packet is information concerning opioid safety and pain management. This information is given to all patients were discharged from the ER regardless of their discharge diagnosis or the medicines they usually take or are prescribed.) Print Language: Namibian Coding Level of Care Code ED Chaser Apprentice for Hardy Enriquez
[2025-08-01 17:30] VITALS: BP 195/100; PULSE 95; O2SAT 95
[2025-08-01 17:57] LABS: Glucose Urine UA Negative (Normal); Nitrate Urine Negative (Negative); Specific Gravity, Urine 1.007 (1.005-1.030)
[2025-08-01 18:01] LABS: Hematocrit 42.1 % (36-47); Hemoglobin 13.90 g/dL (11.27-16.99); Mean Corpuscular HGB Conc 33.0 g/dL (30-55); Mean Corpuscular Hemoglobin 31.0 pg (27-33); Mean Corpuscular Volume 93.8 fl (85-98); Nucleated Red Blood Cells % 0 %; Platelet Count 278 10^3/cmm (157-399); Red Blood Count 4.49 10^6/uL (3.85-5.65); White Blood Count 10.47 10^3/uL (3.29-11.43)
[2025-08-01 18:13] LABS: Add Urine Microscopic? YES
[2025-08-01 18:21] LABS: Alanine Aminotransferase 24 U/L (0-33); Albumin Level 4.0 g/dL (3.5-5.2); Alkaline Phosphatase 90 U/L (35-105); Anion Gap 16.2 (5-19); Aspartate Amino Transferase 22 U/L (0-32); Blood Urea Nitrogen 18 mg/dL (8-23); Calcium 9.8 mg/dL (8.5-10.5); Carbon Dioxide 23 mmol/L (22-29); Chloride 102 mmol/L (98-107); Creatinine Clr Calc Pharmacy 44.3635; Globulin 3.3 g/dL (1.3-4.6); Glucose 91 mg/dL (65-115); Osmolality Calculated 285 mOsm/kg (285-295); Potassium 4.2 mmol/L (3.5-5.1); Sodium 137 mmol/L (136-145); Total Protein 7.3 g/dL (6.6-8.7)
[2025-08-01 18:26] LABS: Lactic Sepsis W/Reflex 1.0 mmol/L (0.5-2.2)
[2025-08-01 18:30] VITALS: BP 164/91; PULSE 63; O2SAT 97
[2025-08-01 19:21] VITALS: BP 164/91; PULSE 73; O2SAT 97
== END 2025-08-01 19:22 | disposition home or self-care (01) ==
PROVIDERS: Emergency Provider Family Medicine; PCP Family Medicine
DX: N30.90 Cystitis, unspecified without hematuria (principal); F03.90 Unspecified dementia, unspecified severity, without behavioral disturbance, psychotic disturbance, mood disturbance, and anxiety; Z79.82 Long term (current) use of aspirin; E78.2 Mixed hyperlipidemia; Z85.3 Personal history of malignant neoplasm of breast; Z86.73 Personal history of transient ischemic attack (TIA), and cerebral infarction without residual deficits
CPT/HCPCS: 36415; 71045; 80053; 81001; 83605; 85025; 87040; 93005; 99285

== ENCOUNTER 2025-08-03 09:48 | Emergency (ER) | payer MEDICARE, SELFPAY ==
--- OUTSIDE RECORDS SUMMARY | 2025-08-03 09:58 | XMS_ITS | Clinical Summary ---
Author Organization [facility] Address [address] [place] [address] Phone Care Team Providers Care Soil Engineer Name Role Phone Unavailable Primary Care Provider [...] 2018 INFLUENZA VACCINE (#1) [address] [place] [id number] [facility]
--- OUTSIDE RECORDS SUMMARY | 2025-08-03 09:58 | XMS_ITS | Encounter Summary ---
Author Organization [facility] Address [address] [place] [address] Care Team Providers Care Wrapper Stitcher Name Role Phone Unavailable Primary Care Provider Unavailabl e Reason for Referral * PET Scan (Urgent) - Closed Specialty Diagnoses / Procedures Referred By Deborah rasheed Referred To Contact Radiology Diagnoses Lymphoma, non-Hodgkin's (CMS/HCC) Procedures PET TUMOR IMG W CT SKL BSE MID THG Deana Barahona FNP [address] [place] [address] Phone: tel: fax: [facility] Nuclear Medicine [address] [place] [phone] Phone: tel: fax: Referral ID Status Reason Start Date Expiration Date V isits Requested Visits Authorized [id number] Closed [facility] to Schedule 08/12/2020 10/10/2020 1 1 Encounter Details Date Type Department Care Team (Late st Contact Info) Description 06/27/2020 Ancillary Orders [facility] Pre-Registration [place] CALL TO MAKE APPOINTMENT ONLY [address] [place] [address] Deana Barahona FNP [address] [place] [address] Lymphoma, non-Hodgkin's (CMS/HCC) Social History [...] Accreditation of Nuclear Medicine Laboratories (IAC Nuclear/PET). [id number] Narrative 08/15/2020 5:53 PM CDT Radionuclide PET Metabolic Tumor Imaging with CT Attenuation Correction and Anatomic Localization from Skull Base to Mid Thigh: Radiopharmaceutical: [id number] Dose: 13.9 mCi right AC IV Time of Injection: 14:40 hrs Clinical Indication: Initial treatment strategy to evaluate non-Hodgkin lymphoma. FDG (Q-12-Museoaosaktukeemqo) PET imaging was performed at 15:40 hrs [...] from Skull Base to Mid Thigh: Radiopharmaceutical: [id number] Dose: 13.9 mCi right AC IV Time of Injection: 14:40 hrs Clinical Indication: Initial treatment strategy to evaluate non-Hodgkin lymphoma. FDG (I-66-Ntdhoblgwhmrpzbuxt) PET imaging was performed at 15:40 hrs [...] Accreditation of Nuclear Medicine Laboratories (IAC Nuclear/PET). [id number] [facility] PE ORDERABLES Final Result documented in this encounter Visit Diagnoses Diagnosis Lymphoma, non-Hodgkin's (CMS/HCC) Lymphosarcoma, unspecified site, extranodal and solid organ sites Lymphoma, non-Hodgkin's (CMS/HCC) Lymphosarcoma, unspecified site, extranodal and solid organ sites documented in this encounter
--- OUTSIDE RECORDS SUMMARY | 2025-08-03 09:58 | XMS_ITS | Clinical Summary ---
Author Organization [facility] Address [address] [facility] Attn: Epic Prelude ADT DANILO JAIME [address] Care Team Providers Care Poultry Sexer Name Role Phone Unavailable Primary Care Provider Unavailabl e Social History Tobacco Use Types Packs/Day Years Used Date Smoking Tobacco: Never Assessed Comments Unknown Sex and Gender Information Value Date Recorded Sex Assigned at Not on file Legal Sex Female 11:24 PM RIVET PASSER Gender Identity Not on file Sexual Orientation [...]
--- OUTSIDE RECORDS SUMMARY | 2025-08-03 09:58 | XMS_ITS | Encounter Summary ---
Author Organization [facility] Address [address] [place] [address] Care Team Providers Care Rougher Helper Name Role Phone Unavailable Primary Care Provider Unavailabl e Encounter Details Date Type Department Care Team (Late st Contact Info) Description 10/16/2020 Ancillary Orders [facility] Pre-Registration [place] CALL TO MAKE APPOINTMENT ONLY [address] [place] [address] Carl Thompson MD [address] [place] [address] Non-Hodgkin lymphoma, unspecified, extranodal and solid organ sites (CMS/HCC); Malignant neoplasm of upper-outer quadrant of left female breast (CMS/HCC); Estrogen receptor positive status (ER+); 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
[2025-08-03 10:06] VITALS: BP 170/69; PULSE 64; RESP 16; TEMP 36.6; O2SAT 97; BMI 23.8
--- NOTE | 2025-08-03 10:06 | ED_ITS ---
HPI - Nausea/Vomiting/Diarrhea 2 General: Chief complaint: Nausea/Vomiting/Diarrhea Stated complaint: N/V R knee Pain Time Seen by Provider: 08/03/25 09:58 Source: patient Mode of arrival: ambulatory Limitations: no limitations History of Present Illness: 80-year-old female who states that she b een having nausea vomiting along with some right side abdominal pain started this morning. She states the pain is currently a 4 out of 10 she denies any fevers denies any worse improving factors. Denies constipation or diarrhea does have a history of dementia she is orientated to self but not time or place and that is her baseline Related Data Home Medications ?Medication ?Instructions ?Recorded ?Confirmed bismuth subsalicylate 262 mg/15 mL 262 mg PO DAILY PRN Diarrhea 01/18/24 06/28/25 oral suspension (Pepto-Bismol) brimonidine 0.1 % eye drops 1 drp ophthalmic (eye) BID 01/18/24 06/28/25 (Alphagan P) magnesium hydroxide 400 mg/5 mL 30 ml PO QPM PRN Const ipation 01/18/24 06/28/25 oral suspension (Milk of Magnesia) sennosides 25 mg tablet (Ex-Lax 25 mg PO DAILY PRN Con stipation 01/18/24 06/28/25 Maximum Strength) sodium phosphates 19 gram-7 118 ml FL DAILY PRN Consti pation 01/18/24 06/28/25 gram/118 mL enema (Fleet Enema) amlodipine 2.5 mg tablet 2.5 mg PO DAILY 05/26/24 mupirocin 2 % topical ointment See Rx Instructions .Ro miles .COMPLEX 06/23/25 06/28/25 Previous Rx's ?Medication ?Instructions ?Recorded aspirin 81 mg tablet,delayed 81 mg PO DAILY #30 tabs 0 06/27/25 release carvedilol 6.25 mg tablet 12.5 mg (2 x 6.25 mg) PO BID #60 06/27/25 tabs losartan 50 mg tablet 25 mg (1/2 x 50 mg) PO DAILY #30 06/27/25 tabs risperidone 0.25 mg tablet 0.25 mg PO BEDTIME PRN agit ation 06/27/25 #30 tabs spironolactone 25 mg tablet 12.5 mg (1/2 x 25 mg) PO D AILY #15 06/27/25 tabs cephalexin 500 mg capsule 500 mg PO TID 7 days #21 cap s 08/01/25 ondansetron 4 mg disintegrating 4 mg PO Q6H PRN nausea and 08/03/25 tablet vomiting #14 tabs Allergies Allergy/AdvReac Type Severity Reaction Status Date / Time adhesive tape Allergy ALGY-Rash Verified 08/01/25 16:12 Influenza Virus Vaccines Allergy ALGY-Rash Verified 08/01/25 16:12 Review of Systems 2 GI: Reports: abdominal pain and vomiting PFSH ED 2 PFSH: Medical History (Updated 08/03/25 @ 11:04 by Mackenzie Ordonez MD) GERD (gastroesophageal reflux disease) Bilateral carotid artery stenosis without cerebral infarction Closed head injury Mixed hyperlipidemia 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 disc disorder 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 region Lumbar stenosis without neurogenic claudication Stenosis of cervical spine with myelopathy 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 Pain management contract signed HX: breast cancer ER [place] negative, 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 status post radiation therapy and hormonal therapy, currently on Femara Stroke (cerebrum) Hx of stroke in February 07, 2019 Spondylolisthesis of cervical region Cervical disc disorder with myelopathy of mid-cervical region Chronic bronchitis Surgical History History of colonoscopy 2019 S/P total left hip arthroplasty Date of procedure: February 10, 2022 Diagnosis: Severe osteoarthritis left hip Procedure done: Left total hip arthroplasty Implants: The Abbi total hip system with the following implants: A 46 mm by C Trident II solid back acetabular shell, an MDM cementless liner 36 mm inner diameter by C alpha code and Accolade II size 4 with 127 degree neck angle hip stem with a 22.2 mm outer diameter +0 mm neck offset femoral head and a sikh X3 insert size 22.2 mm inner diameter by 36C Status post carotid endarterectomy History of left breast biopsy Port-A-Cath in place 04/16/20 History of cholecystectomy History of hysterectomy / BSO / appendectomy H/O total hip arthroplasty Right Social History Smoking and tobacco/nicotine status: never used tobacco/nicotine Alcohol intake: never Substance/Drug Use: never Lives independently: Yes Household members: spouse Marital status: Current occupational status: retired Physical Exam 2 Const: COMMON NORMALS: no acute distress, healthy appearing and alert; negative for patient oriented x3 ORIENTATION/CONSCIOUSNESS: Yes oriented to person; not oriented to place and not oriented to time HENMT: COMMON NORMALS: normocephalic and atraumatic HEAD & SCALP: n ormocephalic and atraumatic Eye: COMMON NORMALS: conjunctivae normal CONJUNCTIVA: Yes conjunctivae normal Neck/C-Spine: COMMON NORMALS: full ROM and supple Chest: COMMONS NORMALS: normal inspection of the chest Resp: COMMON NORMALS: normal respiratory effort, No retractions, No use of accessory muscles and clear to auscultation bilaterally AUSCULTATION: clear to auscultation bilaterally Cardio: COMMON NORMALS: regular rate, regular rhythm and No murmurs present (Cardio) RATE: regular rate RHYTHM: regular rhythm GI: COMMON NORMALS: Normal to inspection, nondistended, normoactive bowel sounds present, Soft to palpation and no masses PALPATION: Yes Soft to palpation OTHER: mild right sided tenderness Extremity: COMMON NORMALS: normal to inspection and full ROM Neuro: COMMON NORMALS: moves all extremities and no focal motor deficits; negative for patient oriented x3 SENSORIUM/ORIENTATION: Yes alert, Yes oriented to person, No oriented to place and No oriented to time Psych: COMMON NORMALS: Normal thought process present and cooperative T HOUGHT PROCESS: Normal thought process present Skin: COMMON NORMALS: no rashes or lesions noted and no wounds GENERAL SKIN EXAM: no rashes or lesions noted Course 2 Vital Signs: Vital signs: Vital Signs Temperature 97.9 F 08/03/25 10:06 Pulse Rate 60 08/03/25 11:12 Respiratory Rate 16 08/03/25 10:06 Blood Pressure 149/86 08/03/25 11:12 Pulse Oximetry 100 08/03/25 11:12 Oxygen Delivery Me thod Room Air 08/03/25 10:06 MDM - Nausea/Vomiting/Diarrhea Medical Decision Making Patient presents with abdominal pain along with vomiting. Patient's no vomiting here and minimal pain while here differential includes small bowel obstruction food poisoning or gastroenteritis. Patient has no signs of a bowel obstruction her CT scan here showed no acute abnormalities her blood work including her white count electrolytes are normal with no signs of any severe infection. She feels improved after IV Zofran has no signs of dehydration we will prescribe her Zofran for home. I did go over these findings and plans with her and her son she is to follow-up with PCP and return if worsening they understand and agree to plan. Medical Records I reviewed the patient's medical records. Lab Data I reviewed the patient's lab results. 08/03/25 10:10 08/03/25 10:10 Radiology Impressions Abdomen/Pelvis CT 08/03/25 10:07 IMPRESSION: 1. No acute abdomen or pelvic abnormalities are identified. 2. No GI tract obstruction. No inflammatory changes. Limited visualization of the colon within the pelvis due to metal artifact from bilateral hip prostheses. 3. Sigmoid diverticular disease. No evidence for acute diverticulitis but portions of the GI tract are obscured. 4. Increased soft tissue and fullness at the rectum. This may be a rectocele. Neoplasm needs to be excluded. 5. Appendix is not identified. No secondary findings of appendicitis. 6. No GI tract obstruction. 7. Prior cholecystectomy. Laboratory Results WBC 7.84 10^3/uL (3.29-11.43) 08/03/25 10:10 RBC 4.63 10^6/uL (3.85-5.65) 08/03/25 10:10 Hgb 14.10 g/dL (11.27-16.99) 08/03/25 10:10 Hct 43.8 % (36-47) 08/03/25 10:10 MCV 94.6 fl (85-98) 08/03/25 10:10 MCH 30.5 pg (27-33) 08/03/25 10:10 MCHC 32.2 g/dL (30-55) 08/03/25 10:10 RDW 14.1 % (12.1-15.1) 08/03/25 10:10 Plt Count 278 10^3/cmm (157-399) 08/03/25 10:10 MPV 9.1 fL (7.4-10.4) 08/03/25 10:10 Neut % (Auto) 52.6 % 08/03/25 10:10 Lymph % (Auto) 34.2 % 08/03/25 10:10 Hodgeman % (Auto) 9.4 % 08/03/25 10:10 Eos % (Auto) 2.9 % 08/03/25 10:10 Baso % (Auto) 0.8 % 08/03/25 10:10 Neut # (Auto) 4.12 10^3/uL (1.8-7.7) 08/03/25 10:10 Lymph # (Auto) 2.7 10^3/uL (0.8-4.8) 08/03/25 10:10 Hodgeman # (Auto) 0.7 10^3/uL (0.2-0.9) 08/03/25 10:10 Eos # (Auto) 0.2 10^3/uL (0.0-0.8) 08/03/25 10:10 Baso # (Auto) 0.1 10^3/uL (0.0-0.1) 08/03/25 10:10 Nucleated RBC % (auto) 0 % 08/03/25 10:10 Nucleated RBCs # 0.0 /100WBC 08/03/25 10:10 Sodium 137 mmol/L (136-145) 08/03/25 10:10 Potassium 4.2 mmol/L (3.5-5.1) 08/03/25 10:10 Chloride 100 mmol/L (98-107) 08/03/25 10:10 Carbon Dioxide 23 mmol/L (22-29) 08/03/25 10:10 Anion Gap 18.2 (5-19) 08/03/25 10:10 BUN 18 mg/dL (8-23) 08/03/25 10:10 Creatinine 0.9 mg/dL (0.5-0.9) 08/03/25 10:10 GFR Calculation Not Reportable 08/03/25 10:10 Glucose 96 mg/dL (65-115) 08/03/25 10:10 Calculated Osmolality 286 mOsm/kg (285-295) 08/03/25 10:10 Calcium 9.9 mg/dL (8.5-10.5) 08/03/25 10:10 Total Bilirubin 0.6 mg/dL (0.15-1.2) 08/03/25 10:10 AST 18 U/L (0-32) 08/03/25 10:10 ALT 17 U/L (0-33) 08/03/25 10:10 Alkaline Phosphatase 94 U/L (35-105) 08/03/25 10:10 Total Protein 7.8 g/dL (6.6-8.7) 08/03/25 10:10 Albumin 4.1 g/dL (3.5-5.2) 08/03/25 10:10 Globulin 3.7 g/dL (1.3-4.6) 08/03/25 10:10 Lipase 21 U/L (13-60) 08/03/25 10:10 All radiology interpretation(s) finalized by discharge Discharge Plan Discharge Patient Disposition: Home Clinical Impression: Vomiting Qualifiers: Vomiting type: unspecified Nausea presence: with nausea Qualified Code(s): R 11.2 - Nausea with vomiting, unspecified Condition: Stable Prescriptions: New ondansetron 4 mg tablet,disintegrating 4 mg PO Q6H PRN (Reason: nausea and vomiting) Qty: 14 0RF No Action amlodipine 2.5 mg tablet 2.5 mg PO DAILY cephalexin 500 mg capsule 500 mg PO TID 7 Days Qty: 21 0RF magnesium hydroxide [Milk of Magnesia] 400 mg/5 mL Suspension 30 ml PO QPM PRN (Reason: Constipation) bismuth subsalicylate [Pepto-Bismol] 262 mg/15 mL Suspension 262 mg PO DAILY PRN (Reason: Diarrhea) Fleet Enema 19-7 gram/118 mL Enema 118 ml FL DAILY PRN (Reason: Constipation) Ex-Lax Maximum Strength 25 mg Tablet 25 mg PO DAILY PRN (Reason: Constipation) brimonidine [Alphagan P] 0.1 % drops 1 drp ophthalmic (eye) BID mupirocin 2 % ointment See Rx Instructions .ROUTE .COMPLEX Rx Instructions: APPLY A SMALL AMOUNT OF OINTMENT TOPICALLY TO AFFECTED AREA THREE TIMES DAILY. aspirin 81 mg Tablet,Delayed Release (Dr/Ec) 81 mg PO DAILY Qty: 30 0RF risperidone 0.25 mg Tablet 0.25 mg PO BEDTIME PRN (Reason: agitation) Qty: 30 0RF losartan 50 mg Tablet 25 mg PO DAILY Qty: 30 1RF carvedilol 6.25 mg Tablet 12.5 mg PO BID Qty: 60 1RF spironolactone 25 mg tablet 12.5 mg PO DAILY Qty: 15 1RF Discharge Orders: Discharge ED (Routine); Ordered 08/03/25 Ordered By: Mackenzie Ordonez Referrals: Jackson Yi MD [Primary Care Provider, Family Practice] - 4-7 days Discharge Diet: Advance as tolerated Discharge Activity: Resume usual activity Patient Instructions: Acute Nausea and Vomiting (ED), Patient Portal & [facility] Instructions Print Language: Bruneian Coding Level of Care Code ED 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
--- NOTE | 2025-08-03 10:07 | CT_ITS ---
WS: [id number] CT ABDOMEN AND PELVIS WITH CONTRAST HISTORY: Abdominal pain, RIGHT lower quadrant pain with nausea and vomiting. TECHNIQUE: Imaging performed of the abdomen and pelvis with IV contrast. Single phase imaging of the abdomen. Coronal and sagittal reformats are submitted. All CT scans at [facility] use at least one of these dose optimization techniques: automated exposure control; mA and/or kV adjustment per patient size (includes targeted exams where dose is matched to clinical indication); or iterative reconstruction. IV CONTRAST: Omnipaque 350; 100 mL IV. Oral contrast: No DLP: 383.71 mGy.cm COMPARISON: 09/01/2024 Lower thorax: Numerous tiny micronodules at the lung bases. These have been previously described. No mass. No pneumonia. Heart is normal size. Moderate size hiatal hernia. Liver/biliary system: Normal size with no intrahepatic dilatation. Gallbladder: Prior cholecystectomy. Pancreas: Severe atrophy and duct dilatation. Marked fatty replacement of the pancreas. No mass identified. No change. Spleen: Normal size. Granuloma and a tiny cyst in the inferior spleen. Adrenal glands: Normal. Right kidney: Mild atrophy. No obstruction. Left kidney: Mild atrophy. No obstruction. Aorta: Moderate atherosclerosis with no aneurysm. Lymphadenopathy: None. Free fluid: None. GI tract: Nondistended stomach. No small bowel obstruction. Normal colon. No appendicitis. Appendix is not definitely visualized. Sigmoid diverticulosis without acute diverticulitis. Increased soft tissue at the rectum. Suspect there may be a rectocele or soft tissue mass. Abdominal wall: Unremarkable abdominal wall. No hernia. Pelvis: No free fluid in the pelvis. GI tract and soft tissues of the pelvis are being obscured by artifact secondary to bilateral hip prostheses. Prior hysterectomy. Bones: Retrolisthesis of L2 and L3 by 2 to 3 mm. No fractures. Bilateral hip prostheses. CT/CT abdomen pelvis w con* [id number] IMPRESSION: 1. No acute abdomen or pelvic abnormalities are identified. 2. No GI tract obstruction. No inflammatory changes. Limited visualization of the colon within the pelvis due to metal artifact from bilateral hip prostheses . 3. Sigmoid diverticular disease. No evidence for acute diverticulitis but port ions of the GI tract are obscured. 4. Increased soft tissue and fullness at the rectum. This may be a rectocele. Neoplasm needs to be excluded. 5. Appendix is not identified. No secondary findings of appendicitis. 6. No GI tract obstruction. 7. Prior cholecystectomy.
[2025-08-03] MEDS: ondansetron 2 mg/ML SDV 2 mL 4 MG IVP (10:15)
[2025-08-03 10:20] LABS: Hematocrit 43.8 % (36-47); Hemoglobin 14.10 g/dL (11.27-16.99); Mean Corpuscular HGB Conc 32.2 g/dL (30-55); Mean Corpuscular Hemoglobin 30.5 pg (27-33); Mean Corpuscular Volume 94.6 fl (85-98); Nucleated Red Blood Cells % 0 %; Platelet Count 278 10^3/cmm (157-399); Red Blood Count 4.63 10^6/uL (3.85-5.65); White Blood Count 7.84 10^3/uL (3.29-11.43)
--- NOTE | 2025-08-03 10:32 | PC.NURSE ---
Mandated Report made: Confirmation Report #[id number] was created at 08/03/2025, 10:32:20 AM
[2025-08-03 10:41] LABS: Alanine Aminotransferase 17 U/L (0-33); Albumin Level 4.1 g/dL (3.5-5.2); Alkaline Phosphatase 94 U/L (35-105); Anion Gap 18.2 (5-19); Aspartate Amino Transferase 18 U/L (0-32); Blood Urea Nitrogen 18 mg/dL (8-23); Calcium 9.9 mg/dL (8.5-10.5); Carbon Dioxide 23 mmol/L (22-29); Chloride 100 mmol/L (98-107); Creatinine Clr Calc Pharmacy 40.8146; Globulin 3.7 g/dL (1.3-4.6); Glucose 96 mg/dL (65-115); Lipase 21 U/L (13-60); Osmolality Calculated 286 mOsm/kg (285-295); Potassium 4.2 mmol/L (3.5-5.1); Sodium 137 mmol/L (136-145); Total Protein 7.8 g/dL (6.6-8.7)
[2025-08-03] MEDS: iohexol 350 mg/mL 500 mL Btl (per mL) IV (10:41)
[2025-08-03 11:12] VITALS: BP 149/86; PULSE 60; O2SAT 100
== END 2025-08-03 11:15 | disposition home or self-care (01) ==
PROVIDERS: Emergency Provider Emergency Medicine; PCP Family Medicine
DX: R11.2 Nausea with vomiting, unspecified (principal); E78.2 Mixed hyperlipidemia; Z85.3 Personal history of malignant neoplasm of breast
CPT/HCPCS: 74177; 80053; 83690; 85025; 96374; 99285; J2405

== ENCOUNTER 2025-08-09 09:18 | Emergency (ER) | payer MEDICARE, SELFPAY ==
--- NOTE | 2025-08-09 09:20 | XRR_ITS ---
PROCEDURE INFORMATION: Exam: XR Right Hip Exam date and time: 08/09/2025 9:32 AM Age: 80 years old Clinical indication: Hip pain; Right hip; Prior surgery; Surgery date: 6+ months; Surgery type: RT. Hip TECHNIQUE: Imaging protocol: Radiologic exam of the right hip. Views: 1 view hip with pelvis when performed. COMPARISON: CT abdomen pelvis w con* [id number] 08/03/2025 10:32 AM FINDINGS: Bones/joints: Metallic right hip arthroplasty in good position. No acute fracture. Soft tissues: Unremarkable. XR/XR hip RT 2-3V wo/w pel* [id number] IMPRESSION: Stable metallic right hip arthroplasty Otherwise No acute findings.
[2025-08-09 09:25] VITALS: PULSE 74; RESP 16; TEMP 37.1; O2SAT 98; BMI 27.4
--- NOTE | 2025-08-09 09:34 | ED_ITS ---
HPI - Extremity Problem General: Chief complaint: Extremity Problem,Nontraumatic Stated complaint: R hip hurt Time Seen by Provider: 08/09/25 09:25 Source: patient Mode of arrival: ambulatory Limitations: no limitations History of Present Illness: 80-year-old female states that she has c hronic hip pain has had a hip replacement on the right. States this morning when she woke up she had a sudden severe pain in the hip that was originally a 10 states has improved greatly states her pain is currently only 1 out of 10 she denies any injuries patient is ambulatory denies any fevers. Related Data Home Medications ?Medication ?Instructions ?Recorded ?Confirmed bismuth subsalicylate 262 mg/15 mL 262 mg PO DAILY PRN Diarrhea 01/18/24 06/28/25 oral suspension (Pepto-Bismol) brimonidine 0.1 % eye drops 1 drp ophthalmic (eye) BID 01/18/24 06/28/25 (Alphagan P) magnesium hydroxide 400 mg/5 mL 30 ml PO QPM PRN Const ipation 01/18/24 06/28/25 oral suspension (Milk of Magnesia) sennosides 25 mg tablet (Ex-Lax 25 mg PO DAILY PRN Con stipation 01/18/24 06/28/25 Maximum Strength) sodium phosphates 19 gram-7 118 ml [place] DAILY PRN Consti pation 01/18/24 06/28/25 gram/118 mL enema (Fleet Enema) amlodipine 2.5 mg tablet 2.5 mg PO DAILY 05/26/24 mupirocin 2 % topical ointment See Rx Instructions .Ro miles .COMPLEX 06/23/25 06/28/25 Previous Rx's ?Medication ?Instructions ?Recorded aspirin 81 mg tablet,delayed 81 mg PO DAILY #30 tabs 0 06/27/25 release carvedilol 6.25 mg tablet 12.5 mg (2 x 6.25 mg) PO BID #60 06/27/25 tabs losartan 50 mg tablet 25 mg (1/2 x 50 mg) PO DAILY #30 06/27/25 tabs risperidone 0.25 mg tablet 0.25 mg PO BEDTIME PRN agit ation 06/27/25 #30 tabs spironolactone 25 mg tablet 12.5 mg (1/2 x 25 mg) PO D AILY #15 06/27/25 tabs ondansetron 4 mg disintegrating 4 mg PO Q6H PRN nausea and 08/03/25 tablet vomiting #14 tabs Allergies Allergy/AdvReac Type Severity Reaction Status Date / Time adhesive tape Allergy ALGY-Rash Verified 08/01/25 16:12 Influenza Virus Vaccines Allergy ALGY-Rash Verified 08/01/25 16:12 Review of Systems Musc: Reports: extremity pain PFSH ED PFSH: Medical History GERD (gastroesophageal reflux disease) Bilateral carotid artery stenosis without cerebral infarction Closed head injury Mixed hyperlipidemia 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 disc disorder 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 region Lumbar stenosis without neurogenic claudication Stenosis of cervical spine with myelopathy 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 Pain management contract signed HX: breast cancer ER [place] negative, 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 status post radiation therapy and hormonal therapy, currently on Femara Stroke (cerebrum) Hx of stroke in February 07, 2019 Spondylolisthesis of cervical region Cervical disc disorder with myelopathy of mid-cervical region Chronic bronchitis Surgical History History of colonoscopy 2020 S/P total left hip arthroplasty Date of procedure: February 10, 2022 Diagnosis: Severe osteoarthritis left hip Procedure done: Left total hip arthroplasty Implants: The Abbi total hip system with the following implants: A 46 mm by C Trident II solid back acetabular shell, an MDM cementless liner 36 mm inner diameter by Christina alpha code and Accolade II size 4 with 127 degree neck angle hip stem with a 22.2 mm outer diameter +0 mm neck offset femoral head and a mosque X3 insert size 22.2 mm inner diameter by 36C Status post carotid endarterectomy History of left breast biopsy Port-A-Cath in place 04/16/20 History of cholecystectomy History of hysterectomy / BSO / appendectomy H/O total hip arthroplasty Right Social History Smoking and tobacco/nicotine status: never used tobacco/nicotine Alcohol intake: never Substance/Drug Use: never Lives independently: Yes Household members: spouse Marital status: Current occupational status: retired Physical Exam Const: COMMON NORMALS: no acute distress, patient oriented x3 and healthy appearing HENMT: COMMON NORMALS: normocephalic and atraumatic HEAD & SCALP: normocephalic and atraumatic Eye: COMMON NORMALS: conjunctivae normal CONJUNCTIVA: Yes conjunctivae normal Neck/C-Spine: COMMON NORMALS: full ROM and supple Chest: COMMONS NORMALS: normal inspection of the chest Resp: COMMON NORMALS: normal respiratory effort Cardio: COMMON NORMALS: regular rate, regular rhythm and No murmurs present (Cardio) RATE: regular rate RHYTHM: regular rhythm Extremity: COMMON NORMALS: normal to inspection and full ROM NARRATIVE EXTREMITY EXAM: No pain with palpation or range of motion distal pulse sensation intact Neuro: COMMON NORMALS: patient oriented x3, moves all extremities and no focal motor deficits Psych: COMMON NORMALS: mental status grossly normal, Normal thought process present and cooperative THOUGHT PROCESS: Normal thought process present Skin: COMMON NORMALS: no rashes or lesions noted and no wounds GENERAL SKIN EXAM: no rashes or lesions noted Course Vital Signs: Vital signs: Vital Signs Temperature 98.7 F 08/09/25 09:25 Pulse Rate 74 08/09/25 09:25 Respiratory Rate 16 08/09/25 09:25 Pulse Oximetry 98 08/09/25 09:25 Oxygen Delivery Me thod Room Air 08/09/25 09:25 MDM - Extremity (Nontraumatic) Medical Decision Making Patient presents with right hip pain. Differential include hip fracture, arthritis, hip dislocation, septic joint. Patient's imaging here showed no signs of dislocation or fracture. Patient has no fever has no pain with range of motion no signs of septic joint. This is likely chronic arthritic pain and she has been here multiple times for the same her pain is actually much improved she is ambulatory patient is to follow-up PCP and return if worsening she understands agrees to plan Medical Records I reviewed the patient's medical records. XR interpretation done by ED provider, pending radiology final review ED provider radiology interpretation(s): xr r hip: no acute fx Discharge Plan Discharge Patient Disposition: Home Clinical Impression: Chronic pain of right hip Condition: Stable Prescriptions: No Action amlodipine 2.5 mg tablet 2.5 mg PO DAILY ondansetron 4 mg tablet,disintegrating 4 mg PO Q6H PRN (Reason: nausea and vomiting) Qty: 14 0RF magnesium hydroxide [Milk of Magnesia] 400 mg/5 mL Suspension 30 ml PO QPM PRN (Reason: Constipation) bismuth subsalicylate [Pepto-Bismol] 262 mg/15 mL Suspension 262 mg PO DAILY PRN (Reason: Diarrhea) Fleet Enema 19-7 gram/118 mL Enema 118 ml [place] DAILY PRN (Reason: Constipation) Ex-Lax Maximum Strength 25 mg Tablet 25 mg PO DAILY PRN (Reason: Constipation) brimonidine [Alphagan P] 0.1 % drops 1 drp ophthalmic (eye) BID mupirocin 2 % ointment See Rx Instructions .ROUTE .COMPLEX Rx Instructions: APPLY A SMALL AMOUNT OF OINTMENT TOPICALLY TO AFFECTED AREA THREE TIMES DAILY. aspirin 81 mg Tablet,Delayed Release (Dr/Ec) 81 mg PO DAILY Qty: 30 0RF risperidone 0.25 mg Tablet 0.25 mg PO BEDTIME PRN (Reason: agitation) Qty: 30 0RF losartan 50 mg Tablet 25 mg PO DAILY Qty: 30 1RF carvedilol 6.25 mg Tablet 12.5 mg PO BID Qty: 60 1RF spironolactone 25 mg tablet 12.5 mg PO DAILY Qty: 15 1RF Discharge Orders: Discharge ED (Routine); Ordered 08/09/25 Ordered By: Mackenzie Ordonez Referrals: Jackson Yi MD [Primary Care Provider, Family Practice] - 4-7 days Discharge Diet: Advance as tolerated Discharge Activity: Resume usual activity Patient Instructions: Hip Pain (ED) Print Language: Filipino Coding Level of Care Code ED 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
== END 2025-08-09 10:09 | disposition home or self-care (01) ==
PROVIDERS: Emergency Provider Emergency Medicine; PCP Family Medicine
DX: M25.551 Pain in right hip (principal); Z79.82 Long term (current) use of aspirin; E78.2 Mixed hyperlipidemia; Z85.3 Personal history of malignant neoplasm of breast; Z86.73 Personal history of transient ischemic attack (TIA), and cerebral infarction without residual deficits
CPT/HCPCS: 73502; 99283

== ENCOUNTER 2025-08-11 14:00 | Emergency (ER) | payer MEDICARE, SELFPAY ==
[2025-08-11 14:04] VITALS: BP 170/93; PULSE 81; RESP 18; TEMP 37.1; O2SAT 99; BMI 21.9
--- OUTSIDE RECORDS SUMMARY | 2025-08-11 14:06 | XMS_ITS | Encounter Summary ---
Author Organization [facility] Address [address] [place] [address] Care Team Providers Care Citrus Picker Name Role Phone Unavailable Primary Care Provider Unavailabl e Encounter Details Date Type Department Care Team (Late st Contact Info) Description 10/16/2020 Ancillary Orders [facility] Pre-Registration [facility] CALL TO MAKE APPOINTMENT ONLY [address] [place] [address] Carl Thompson MD [address] [place] [address] Non-Hodgkin lymphoma, unspecified, extranodal and solid organ sites (CMS/HCC); Malignant neoplasm of upper-outer quadrant of left female breast (CMS/HCC); Estrogen receptor positive status (ER+); care home (current) use of aromatase inhibitors Social History [...] status (ER+) Estrogen receptor positive status [ER+] 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
--- OUTSIDE RECORDS SUMMARY | 2025-08-11 14:06 | XMS_ITS | Clinical Summary ---
Author Organization [facility] Address [address] [facility] 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
--- OUTSIDE RECORDS SUMMARY | 2025-08-11 14:06 | XMS_ITS | Encounter Summary ---
Author Organization 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 Name Role Phone Unavailable Primary Care Provider Unavailabl e Reason for Referral * PET Scan (Urgent) - Closed Specialty Diagnoses / Procedures Referred By Deborah rasheed Referred To Contact Radiology Diagnoses Lymphoma, non-Hodgkin's (CMS/HCC) Procedures PET TUMOR IMG W CT SKL BSE MID THG Deana Barahona FNP [address] [place] [address] Phone: tel: fax: [facility] Nuclear Medicine [address] [place] [phone] Phone: tel: fax: Referral ID Status Reason Start Date Expiration Date V isits Requested Visits Authorized [id number] Closed [facility] [place] 08/12/2020 10/10/2020 1 1 Encounter Details Date Type Department Care Team (Late st Contact Info) Description 06/27/2020 Ancillary Orders [facility] Pre-Registration [employer] CALL TO MAKE APPOINTMENT ONLY [address] [place] [address] Deana Barahona FNP [address] [place] [address] Lymphoma, non-Hodgkin's (CMS/HCC) Social History [...] Accreditation of Nuclear Medicine Laboratories ([facility] Nuclear/PET). [id number] Narrative 08/15/2020 5:53 PM CDT Radionuclide PET Metabolic Tumor Imaging with CT Attenuation Correction and Anatomic Localization from Skull Base to Mid Thigh: Radiopharmaceutical: [id number] Dose: 13.9 mCi right AC IV Time of Injection: 14:40 hrs Clinical Indication: Initial treatment strategy to evaluate non-Hodgkin lymphoma. FDG ([id number]) PET imaging was performed at 15:40 hrs [...] from Skull Base to Mid Thigh: Radiopharmaceutical: [id number] Dose: 13.9 mCi right AC IV Time of Injection: 14:40 hrs Clinical Indication: Initial treatment strategy to evaluate non-Hodgkin lymphoma. FDG ([id number]) PET imaging was performed at 15:40 hrs [...] Accreditation of Nuclear Medicine Laboratories ([facility]AC Nuclear/PET). [id number] Deana Barahona [facility] PE ORDERABLES Final Result documented in this encounter Visit Diagnoses Diagnosis Lymphoma, non-Hodgkin's (CMS/HCC) Lymphosarcoma, unspecified site, extranodal and solid organ sites Lymphoma, non-Hodgkin's (CMS/HCC) Lymphosarcoma, unspecified site, extranodal and solid organ sites documented in this encounter
--- OUTSIDE RECORDS SUMMARY | 2025-08-11 14:06 | XMS_ITS | Data Portability ---
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 Name Role Phone BEN YI Primary Care [...] serum or plasma 2024 025 ZARA [facility], [address], [facility], [place], [address], 12:33:14 CBC 2024 025 [facility], [address], [address], [place], [address], 12:30:57 lipid panel, blood 2024 025 [facility], [address], [address], [place], [address], 12:33:17 Referral home health referral 2024 025 [email or web address] 2 [facility], [address] [place], [address], 5 11:12:21 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 Surgeries None recorded. Imaging None recorded. Medication Orders mupirocin 2 % topical ointment 2024 025 [facility], [address], [place], [address], 17:14:01 amlodipine 2.5 mg tablet 2024 025 [facility], [address], [place], [address], 5 11:09:00 amlodipine 2.5 mg tablet 2023 025 [facility], [address], [address], 5 10:55:54 Patient TargetsNo targets recorded. Patient InstructionsNo instructions recorded. 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 Referring Physician: [facility], Encounter Date: 10/02/2024 Home Health Referral for Fra il elderly Referring Physician: [facility], Encounter Date: 07/03/2025 Results Created Date Observation Date Name Description Value Unit Range Abnormal Flag Note LastModifiedBy Organization Detail LastModifiedTime 01/02/20 25 01/01/2025 CBC WBC 8.2 x10 4.0-10 .5 Not Available [facility] [address], [place], [address], 01/01/2025 12:30:57 01/02/20 25 01/01/2025 CBC RBC 4.28 x10 3.50-5 .50 Not Available [facility] [address] [facility], [place], [address], 01/01/2025 12:30:57 01/02/20 25 01/01/2025 CBC HGB 13.6 g/dL 12.0-1 6.0 Not Available [facility] [address] [facility], [place], [address], 01/01/2025 12:30:57 01/02/20 25 01/01/2025 CBC HCT 40.2 % 37.0-4 7.0 Not Available [facility] [address] [facility], [place], [address], 01/01/2025 12:30:57 01/02/20 25 01/01/2025 CBC MCV 94.0 fL 80.0-9 9.9 Not Available [facility] [address] [facility], [place], [address], 01/01/2025 12:30:57 01/02/20 25 01/01/2025 CBC MCH 31.7 pg 27.0-3 2.0 Not Available [facility] [address] [facility], [place], [address], 01/01/2025 12:30:57 01/02/20 25 01/01/2025 CBC MCHC 33.8 g/dL 32.0-3 6.0 Not Available [facility] [address] [facility], [place], [address], 01/01/2025 12:30:57 01/02/20 25 01/01/2025 CBC RDW 13.9 % 11.5-1 4.5 Not Available [facility] [address] [facility] 1, [place], [address], 01/01/2025 12:30:57 01/02/20 25 01/01/2025 CBC plt 271.2 x10 140.0- 451.0 Not Available [facility] [address] [facility] 1, [place], [address], 01/01/2025 12:30:57 01/02/20 25 01/01/2025 CBC lymphocytes % 38.4 % 20.0-5 0.0 Not Available [facility] [address] [facility] 1, [place], [address], 01/01/2025 12:30:57 01/02/20 25 01/01/2025 CBC granulcytes % 49.9 % 30.0-7 0.0 Not Available [facility] [address] [facility] 1, [place], [address], 01/01/2025 12:30:57 01/02/20 25 01/01/2025 CBC monocytes % 10.3 % 2.0-16 .0 Not Available [facility] [address] [facility] 1, [place], [address], 01/01/2025 12:30:57 01/02/20 25 01/01/2025 CBC granulcytes# 4.1 x10 Not Sherice ilable [facility] [address] [facility] 1, [place], [address], 01/01/2025 12:30:57 01/02/20 25 01/01/2025 CBC lymphocytes # 3.1 x10 Not Available [facility] [address] [facility] 1, [place], [address], 01/01/2025 12:30:57 01/02/20 25 01/01/2025 CBC monocytes # 0.8 x10 Not Avai lable [facility] [address] [facility] 1, [place], [address], 01/01/2025 12:30:57 01/02/20 25 01/01/2025 CMP (FEMA LE) glucose 85.0 mg/dL 60.0-9 9.0 Not Available [facility] [address] [facility] 1, [place], [address], 01/01/2025 12:33:14 01/02/20 25 01/01/2025 CMP (FEMA LE) BUN (blood urea nitrogen) 28.0 mg/dL 10.0-2 6.0 high Not Available [facility] [address] [facility] 1, [place], [address], 01/01/2025 12:33:14 01/02/20 25 01/01/2025 CMP (FEMA LE) creatinine (serum) 0.8 mg/dL 0.4-1. 5 Not Available [facility] [address] [facility] 1, [place], [address], 01/01/2025 12:33:14 01/02/20 25 01/01/2025 CMP (FEMA LE) BUN/creatini ne ratio 35.00 ratio Not Available [facility] [address] [facility] 1, [place], [address], 01/01/2025 12:33:14 01/02/20 25 01/01/2025 CMP (FEMA LE) eGFR calculated 73.2 Not Available [facility] [address] [facility] 1, [place], [address], 01/01/2025 12:33:14 01/02/20 25 01/01/2025 CMP (FEMA LE) total protein 8.1 g/dL 6.0-8. 5 Not Available [facility] [address] [facility] 1, [place], [address], 01/01/2025 12:33:14 01/02/20 25 01/01/2025 CMP (FEMA LE) total bilirubin 0.7 mg/dL 0.2-1. 3 Not Available [facility] [address] [facility], [place], [address], 01/01/2025 12:33:14 01/02/20 25 01/01/2025 CMP (FEMA LE) albumin 4.5 g/dL 3.5-5. 5 Not Available [facility] [address] [facility] 1, [place], [address], 01/01/2025 12:33:14 01/02/20 25 01/01/2025 CMP (FEMA LE) globulin 3.6 calc Not Available [facility] [address] [facility] 1, [place], [address], 01/01/2025 12:33:14 01/02/20 25 01/01/2025 CMP (FEMA LE) AST (SGOT) 30.0 U/L 0.0-46 .0 Not Available [facility] [address] [facility] 1, [place], [address], 01/01/2025 12:33:14 01/02/20 25 01/01/2025 CMP (FEMA LE) altv (SGPT) 18.0 U/L 13.0-6 9.0 normal Not Available [facility] [address] [facility], [place], [address], 01/01/2025 12:33:14 01/02/20 25 01/01/2025 CMP (FEMA LE) A/G ratio 1.3 ratio Not Available [facility] [address] [facility] 1, [place], [address], 01/01/2025 12:33:14 01/02/20 25 01/01/2025 CMP (FEMA LE) ALP phos 89.0 U/L 30.0-1 40.0 normal Not Available [facility] [address] [facility] 1, [place], [address], 01/01/2025 12:33:14 01/02/20 25 01/01/2025 CMP (FEMA LE) calcium 10.6 mg/dL 8.4-10 .5 high Not Available [facility] [address] [facility] 1, [place], [address], 01/01/2025 12:33:14 01/02/20 25 01/01/2025 CMP (FEMA LE) sodium 141.0 mmol/ L 136.0- 145.0 Not Available [facility] [address] [facility] 1, [place], [address], 01/01/2025 12:33:14 01/02/20 25 01/01/2025 CMP (FEMA LE) potassium 4.4 mmol/ L 3.5-5. 1 Not Available [facility] [address] [facility] 1, [place], [address], 01/01/2025 12:33:14 01/02/20 25 01/01/2025 CMP (FEMA LE) chloride 100.0 mmol/ L 98.0-1 10.0 normal Not Available [facility] [address] [facility] 1, [place], [address], 01/01/2025 12:33:14 01/02/20 25 01/01/2025 CMP (FEMA LE) C02 34.0 mmol/ L 22.0-3 1.0 high Not Available [facility] [address] [facility] 1, [place], [address], 01/01/2025 12:33:14 01/02/20 25 01/01/2025 CMP (FEMA LE) anion gap 7.0 calc Not Available [facility] [address] [facility] 1, [place], [address], 01/01/2025 12:33:14 01/02/20 25 01/01/2025 CMP (FEMA LE) osmolality 295.6 calc Not Available [facility] [address] [facility] 1, [place], [address], 01/01/2025 12:33:14 01/02/20 25 01/01/2025 LIPID PROFI LE (FEMA LE) cholesterol 250.0 mg/dL 0.0-20 0.0 high Not Available [facility] [address] [facility] 1, [place], [address], 01/01/2025 12:33:17 01/02/20 25 01/01/2025 LIPID PROFI LE (FEMA LE) trig 245.0 mg/dL 0.0-15 0.0 high Not Available [facility] [address] [facility] 1, [place], [address], 01/01/2025 12:33:17 01/02/20 25 01/01/2025 LIPID PROFI LE (FEMA LE) HDL - direct 40.0 mg/dL >40.0 Not Available [facility] [address] [facility] 1, [place], [address], 01/01/2025 12:33:17 01/02/20 25 01/01/2025 LIPID PROFI LE (FEMA LE) VLDL - direct 49.0 mg/dL Not Available [facility] [address] [facility] 1, [place], [address], 01/01/2025 12:33:17 01/02/20 25 01/01/2025 LIPID PROFI LE (FEMA LE) LDL - direct 161.0 mg/dL 0.0-13 0.0 high Not Available [facility] [address], [place], [address], 01/01/2025 12:33:17 Result Notes None recorded. 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 12:05:56 Hyperten sive disorder 75521122 Completed 12/31/2024 Removal Reason: duplicat e Mere shannon [facility] 16:46:36 History of malignan t neoplasm of breast 135491370 Active Mere shannon [facility] 16:44:28 Acute urinary tract infectio n 332337392 Completed 12/31/2024 Ben Yi MD [address] [place] [address], [address], [facility] 15:29:46 Carpal tunnel syndrome 54954914 Completed 01/01/2025 Removal Reason: s/p surgery Ben Yi MD [address] [place] [address], [address], [facility] 5 12:04:24 History of total hip arthropl asty 98040050870 6 Completed 01/01/2025 Ben Yi MD [address] [place], [address], [facility] 5 12:06:06 Cerebrov ascular accident 739820245 Completed 202101/01/2025 STROKE; 06/30/20 3:06PM by Arturo Hernandezic al Summary; Promoted ; acuity set as *; Ben Yi MD [address] [place], [address], [facility] 5 12:07:52 Chronic bronchio litis 570009662 Active 2021 CHRONIC BRONCHIO LITIS; 06/30/20 22 3:04PM by Arturo Hernandezic al Summary; Promoted ; acuity set as *; JENNIFER shannon, [facility] 5 20:47:29 Bilatera l stenosis of carotid arteries 230791302 Active 2021 BILATERA L CAROTID ARTERY STENOSIS WITHOUT CEREBRAL INFARCTI ON; 06/30/20 22 3:07PM by Katty Hernandez al Summary; Promoted ; acuity set as *; Mere shannon, [facility] 5 10:13:12 Hyperlip idemia 33909102 Active 2021 HYPERLIP EMIA; 06/30/20 22 3:06PM by Katty Hernandez al Summary; Promoted ; acuity set as *; Mere hsannon, [facility] 5 16:44:46 Closed injury of head 36899900328 6 Completed 202112/31/2024 CLOSED HEAD INJURY; 06/30/20 22 3:04PM by Jennifer Bernardino, Historic al Summary; Promoted ; acuity set as *; Mere shannon [facility] 5 16:47:26 Gastroes ophageal reflux disease 698917247 Active 2021 GERD (GASTROE SOPHAGEA L REFLUX DISEASE) ; Impressi on: sx controll ed on current medicati ons.; Recorded 07/08/20 10:44AM by Ben Yi MD, Office Visit; Promoted ; acuity set as *; Mere shannon [facility] 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 5 12:06:55 Primary malignan t neoplasm of female breast 22486021 Completed 202201/01/2025 Ben Yi MD [address] [place] [address], [address], [facility] 5 12:07:23 Essentia l hyperten haider 21268624 Active 2022 Mere shannon [facility] 5 16:43:37 Hammer toe 226528932 Active 2023 Mere shannon [facility] 5 16:46:51 Frail elderly 835374756 Active 2024 Mere shannon [facility] 12:43:26 Congesti ve heart failure 59772119 Active 2024 Ben Yi MD [address] [place] [address], [address], [facility] 16:53:57 Vascular dementia 141976099 Active 2024 Ben Yi MD [address] [place] [address], [address], [facility] 5 08:45:36 Acute urinary tract infectio n 798929713 Active 2024 Ben Yi MD [address] [place] [address], [facility] 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 Procedures Surgical History Date Name Laterality Status Provider Name and Address Organization Details Recorded Time procedure on hip completed [facility] 01/01/2025 10:57:34 Imaging Results None recorded. Procedure Notes None recorded. Medical Equipment None Reported. Allergies Allergen ID Allergen Name Allergen Category Reaction Reaction Severity Criticality Documentation Date Start Date Code Code System Note Provider Name and Address Organization Details Recorded Time 03807 adhesive bandage-a dhes.patsy vr1 medicatio n Not available Not available Not available 05/29/2023 Comme nt: Recor ded 07/08 9:11A M by There sa Alvarez , Offic e Visit ; [employer]; Signi bryson ce: *; Reaso n: Drug aller gy; ; Not Available [facility] 3 02:25:20 71540 Vaccine product containin g only influenza virus antigen (medicina l product) medicatio n Not available Not available Not available 05/29/2023 83162 45887 105 SNOMED Comme nt: Recor ded 07/08 9:11A M by There sa Alvarez , Offic e Visit ; [employer] [place]; Signi fican ce: *; Reaso n: Drug aller gy; ; Ben Yi MD [address] [place], [address] [facility] 4 12:11:50 Medications Name Sig Start Date [...] 0; Recorded 07/08/20 22 9:10AM by Jennifer lAvarez, Office Visit; Not Available Not Available Not Available Vitals Date Recorded Body height Body mass index (BMI) Body weight Body temperature Oxygen saturation Oxygen saturation in Arterial blood by Pulse oximetry Heart rate Systolic And Diastolic Provider Name and Address Organization Details Last Updated DateTime 5 157.48 cm 21.9 kg/m2 33366.2 9 g 97.4 [degF] 99 % 99 % 51 /min 146/82 mm[Hg] DALE MARTINEZ [facility] 5 11:00:47 Date Recorded Body height Body mass index (BMI) Body weight Oxygen saturation Oxygen saturation in Arterial blood by Pulse oximetry Heart rate Respiratory rate Body temperature Systolic And Diastolic Provider Name and Address Organization Details Last Updated DateTime 5 157.48 cm 21.9 kg/m2 27875.0 8 g 99 % 99 % 84 /min 16 /min 98.2 [degF] 140/80 mm[Hg] Jo Stewart [facility] 5 12:08:46 Date Recorded Body height Respiratory rate Body mass index (BMI) Body weight Body temperature Heart rate Oxygen saturation Oxygen saturation in Arterial blood by Pulse oximetry Systolic And Diastolic Provider Name and Address Organization Details Last Updated DateTime 4 157.48 cm 20 /min 21.7 kg/m2 76379.7 g 97 [degF] 80 /min 96 % 96 % 120/78 mm[Hg] [facility] 4 11:42:24 Date Recorded Body height Body mass index (BMI) Body weight Oxygen saturation Oxygen saturation in Arterial blood by Pulse oximetry Heart rate Respiratory rate Body temperature Systolic And Diastolic Provider Name and Address Organization Details Last Updated DateTime 5 157.48 cm 22.1 kg/m2 76545.2 4 g 99 % 99 % 63 /min 18 /min 97.1 [degF] 120/68 mm[Hg] Mere Ayaz [facility] 5 16:30:43 Date Recorded Body height Respiratory rate Body mass index (BMI) Body weight Body temperature Oxygen saturation Oxygen saturation in Arterial blood by Pulse oximetry Heart rate Systolic And Diastolic Provider Name and Address Organization Details Last Updated DateTime 4 157.48 cm 20 /min 21.1 kg/m2 30472.9 2 g 97.4 [degF] 98 % 98 % 88 /min 120/74 mm[Hg] JENN[facility]ER [facility]INOL[facility] [address] 4 11:26:19 Social History Question Answer Notes LastModified by Trunity Details LastModified Time Tobacco Smoking Status Never Smoker [facility] [place] 01/01/2025 10:56:21 Are You Blind Or [...] Time zoster recombinant 2 completed JENNIFER shannon [facility] 06/16/2024 17:38:13 zoster recombinant 3 completed JENNIFER shannon [facility] 06/16/2024 17:38:13 COVID-19, mRNA, LNP-S, PF, 30 mcg/0.3 mL dose 1 completed JENNIFER shannon [facility] 06/16/2024 17:38:13 COVID-19, mRNA, LNP-S, PF, 30 mcg/0.3 mL dose, roddy-sucrose 2 completed JENNIFER shannon [facility] 06/16/2024 17:38:13 Pneumococcal conjugate PCV20, polysaccharide FRL078 conjugate, adjuvant, PF 4 completed Ben Yi MD [address] [place] [address], [phone], [facility] 06/26/2024 15:25:09 Influenza, adjuvanted, trivalent, PF 4 completed Ben Yi MD [address] [place] [address], [phone], [facility], Mary 06/26/2024 15:25:09 Past Encounters Encounter ID Performer Location Encounter Start Date Encounter Closed Date Diagnosis/Indication Diagnosis SNOMED-CT Code Diagnosis ICD10 Code Diagnosis IMO Codes Diagnosis Note [id number] Ben Yi MD [facility] ([facility]) [address] [place] [phone] 10/05/2023 14:33:12 10/05/2023 16:56:53 Psoriasis 3143331 L40.9 Possibly psoriasis on her skin. Will treat with steroids. Follow-up if rash returns. Malignant lymphoma of extranodal AND/OR solid organ site 95127526 C85.99 Primary ma lignant neoplasm of female breast 54298330 C50.912 Hyperlipidemia 91072963 E78.5 Spinal jacinto nosis of lumbar region 27371266 M48.062 Essential hypertension 48195679 I10 Patient had elevation of her blood pressure but it is improved today. The patient is not checking it at home, so encouraged her to do so. Follow-up if continued elevations of blood pressure are noted. Encouraged patient to make routine follow-ups . Follow-up in 3 months. [id number] Ben Yi MD [facility] ([facility]) [address] [place] [id number] 11/25/2023 11:30:27 11/28/2023 20:27:06 Cellulitis 358593187 L03.90 Concerned about infection developing in the wound. Will start antibiotic s. Discussed wound care with patient. Follow-up with PCP if symptoms do not improve or worsen. [id number] Ben Yi MD [facility] ([facility]) [address] [place] [id number] 02/03/2024 10:35:25 02/03/2024 11:23:03 Dog bite of hand 211401499 S61.451A Does takePatien t reports that the [...] symptoms change or wound does not improving. [id number] Ben Yi MD [facility] ([facility]) [address] [place] [id number] 02/07/2024 11:23:21 02/07/2024 12:01:27 Dog bite of hand 829764584 S61.451A Concerned that the infection is contributi ng to the patient's pain. The wound itself does not look infected. Mended applying wet-to-dry dressings and this was demonstrat ed to the patient. Complete course of antibiotic s. Will follow-up in 1 week. [id number] MANN JOSE [facility] ([facility]) [address] [place] [id number] 5 02/11/2024 14:49:21 02/11/2024 16:05:32 Dog bite of hand 751413803 S61.451D Discussed to continue washing with soap and water daily. Keep area covered when outside. May open to air when inside. Return for wound check if you develop redness, purulent drainage, increased pain, or concerns arise. [id number] Ben Yi MD [facility] ([facility]) [address] [place] [id number] 03/24/2024 14:25:37 03/24/2024 15:10:10 Essential hypertension 87505366 I10 Reviewed pressure log. She has labile [...] months or sooner if there are issues. [id number] Ben Yi MD [facility] ([facility]) [address] [place] [id number] 06/26/2024 11:35:08 06/26/2024 12:44:53 Essential hypertension 54394166 I10 Continue amlodipine . Continue monitoring blood pressure at home. Active or passive immunization 234464320 Z23 The patient is agreeable for flu shot today. The patient never got her second pneumonia shot so we will do a Prevnar 20 today. Chronic constipation 236 491190 K59.09 stable Bilateral stenosis of carotid arteries 643185390 I65.23 no sx Malignant neoplasm of breast 859545450 C50.919 follows with oncology [id number] Ben Yi MD [facility] ([facility]) [address] [place] [id number] 10/02/2024 11:06:46 10/02/2024 11:42:05 Foot pain 04684056 M79.672 Given the patient's concerns and the state of her foot, podiatry referral would be warranted. Patient was agreeable with this plan. Hammer toe 848189880 M20 .42 [id number] Ben Yi MD [facility] ([facility]) [address] [place] [id number] 01/01/2025 10:44:30 01/01/2025 11:21:10 Essential hypertension 69804040 I10 Given the elevations in blood pressure I do recommend that we restart blood pressure medication s. With amlodipine to 2.5 mg that she was tolerating this medication previously . Degenerati on of lumbar intervertebral disc 43671936 M51.369 Patient denies any significan t back pain or pain concerns today. Hyperlipidemia 26593403 E78.5 Bilateral stenosis of carotid arteries 437458026 I65.23 no sx Chronic bronchiolitis 73 2651533 J44.9 Chronic constipation 236 540389 K59.09 stable Gastroesop hageal reflux disease 417706907 K21.9 History of fall 73576768 9 Z91.81 Frail elderly 914723791 R54 Need for [facility] care assistance [id number] 4574898 Z74.[id number] [facility] ([facility]) [address] [place] [id number] 06/11/2025 12:03:49 06/11/2025 12:38:15 Post-traumatic wound infection 143689865 T14.8XXA L08.9 10875712 Discussed to wash with soap and water daily. Apply mupirocin 3 times a day and apply a gauze pad for next 4 days. If you develop increased redness or concerned for worsening infection then return for re-evaluat ion [id number] Ben Yi MD [facility] ([facility]) [address] [place] [address] 07/03/2025 15:51:49 07/03/2025 17:19:17 Essential hypertension 20412578 I10 Monitor blood pressure at home. Congestive heart failure 69352086 I50.20 [id number] Son had questions about her blood pressure medication s including carvedilol and spironolac tone. The reasons for these medication s was discussed with the son. Frail elderly 860334839 R54 Did not would benefit from continued physical therapy. Will put a referral to home health to help with this. Acute urin michelle tract infection [id number] N39.0 [id number] The patient is recovering well from her infection. The patient did have some delirium in her hospital stay. 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 Adjust [...] 01/01/2025 1 [place] [id number] Jenna Nye [id number] 44 Jenna Nye 07/10/2025 1 [place] (MEDICARE [place]PLACEMENT/A DVANTAGE - PPO) [id number] Jenna Nye [id number] 44 Jenna Nye Notes Date Note Type [...] medication without any issues. Ben Yi MD [address] [place] [address], [phone], [facility] 06/26/2024 15:32:14 4 text/html This is an 79-year-old female comes in today with left foot pain. The patient has a callus on the bottom of her left foot that has been hurting and bothering her. Also has calluses on the tips of her toes of the same foot. Ben Yi MD [address] [place] [address], [phone], [facility] 10/03/2024 13:29:17 5 text/html Hypertension IM/FMReported [...] denies any concerns today. Ben Yi MD [address] [place] [address], [phone], [facility] [place]usto. 01/01/2025 12:21:23 5 text/html LacerationReported by PatientROS as noted in the HPI walk in patientpatient is here today for a skin tear on her right arm from hitting a wall in her home, patient did this last week and said that the tear is very painful. MANN JOSE [address] [place] [address], [phone], [facility] [place]. 06/11/2025 12:24:21 5 text/html 1-year-old female [...] her at this time. Ben Yi MD [address] [place] [address], [phone], [facility], LDonavanLJimi. 07/05/2025 15:32:15 OBGyn Episode No OBEpisode recorded.
--- OUTSIDE RECORDS SUMMARY | 2025-08-11 14:06 | XMS_ITS | Clinical Summary ---
Author Organization [facility] Address [address] [place] [address] Phone Care Team Providers Care Employment Agency Manager Name Role Phone Unavailable Primary Care [...] 2018 INFLUENZA VACCINE (#1) [address] [place] [id number] [facility]
--- NOTE | 2025-08-11 14:26 | XRR_ITS ---
PROCEDURE INFORMATION: Exam: XR Right Hip Exam date and time: 08/11/2025 2:34 PM Age: 80 years old Clinical indication: Hip pain; Right hip; Prior surgery; Surgery date: 6+ months; Surgery type: Obi hip; Additional info: Fall, w/ pelvis TECHNIQUE: Imaging protocol: Radiologic exam of the right hip. Views: 1 view hip with pelvis when performed. COMPARISON: CR (PELVIS, ) 08/09/2025 9:32 AM FINDINGS: Bones/joints: Bilateral hip arthroplasty changes. Degenerative changes throughout the spine. Possible right inferior pubic ramus fracture, decreased bone mineral density limits evaluation, CT could further characterize this. Soft tissues: Unremarkable. XR/XR hip RT 2-3V wo/w pel* [id number] IMPRESSION: 1. Possible right inferior pubic ramus fracture, decreased bone mineral density limits evaluation, CT could further characterize this. 2. Degenerative changes throughout the spine. 3. Bilateral hip arthroplasty changes.
--- NOTE | 2025-08-11 14:27 | W.ED.BACK ---
HPI - Back Pain/Injury General: Chief Complaint: Back Pain/Injury Stated Complaint: ABD Pain going to the back confused Time Seen by Provider: 08/11/25 14:11 Source: patient and family (son) Mode of arrival: ambulatory Limitations: no limitations History of Present Illness: Patient is an 80-year-old female who is brought into the emergency department by son for evaluation. Patient had ambulated outside while the son was working in the yard, had stated that she was having abdominal pain. She does have a history of dementia and multiple previous ED visits here of late. On the ride over here, patient stated that she was never having abdominal pain and that she fell inside and is having right posterior hip pain radiating down the right leg. As mentioned, she has been ambulatory since. Patient denies any her head, she is at baseline mentation, per son, who is the primary caregiver. At this time patient is denying any abdominal pain to me, stating that her pain is just to the right hip. Fall was unwitnessed. Patient states she did not hit her head or lose consciousness. Vital stable at this time, she denies need for pain medication. Patient is not complaining of any other symptoms, namely denying chest pain, shortness of breath, or any other preceding symptoms prior to the fall, stating this was accidental. MD elicited complaint: other (rt hip pain from fall) Onset (ago): minute(s) Timing: constant Severity: mild Associated symptoms: Deny abdominal pain, chills, fever(s), nausea or vomiting Related Data Home Medications ?Medication ?Instructions ?Recorded ?Confirmed bismuth subsalicylate 262 mg/15 mL 262 mg PO DAILY PRN Diarrhea 01/18/24 08/11/25 oral suspension (Pepto-Bismol) brimonidine 0.1 % eye drops 1 drp ophthalmic (eye) BID 01/18/24 08/11/25 (Alphagan P) magnesium hydroxide 400 mg/5 mL 30 ml PO QPM PRN Constipation 01/18/24 08/11/25 oral suspension (Milk of Magnesia) sennosides 25 mg tablet (Ex-Lax 25 mg PO DAILY PRN Constipation 01/18/24 08/11/25 Maximum Strength) sodium phosphates 19 gram-7 118 ml MT DAILY PRN Constipation 01/18/24 08/11/25 gram/118 mL enema (Fleet Enema) mupirocin 2 % topical ointment See Rx Instructions .Route .COMPLEX 06/23/25 08/11/25 Previous Rx's ?Medication ?Instructions ?Recorded aspirin 81 mg tablet,delayed 81 mg PO DAILY #30 tabs 06/27/25 release losartan 50 mg tablet 25 mg (1/2 x 50 mg) PO DAILY #30 06/27/25 tabs spironolactone 25 mg tablet 12.5 mg (1/2 x 25 mg) PO DAILY #15 06/27/25 tabs ondansetron 4 mg disintegrating 4 mg PO Q6H PRN nausea and 08/03/25 tablet vomiting #14 tabs Allergies Allergy/AdvReac Type Severity Reaction Status Date / Time adhesive tape Allergy ALGY-Rash Verified 08/01/25 16:12 Influenza Virus Vaccines Allergy ALGY-Rash Verified 08/01/25 16:12 Review of Systems General: Reports: 10 or more systems reviewed and unremarkable except in HPI and below Const: Reports: other (reports fall); Denies: fever(s) or chills Card: Denies: chest pain Resp: Denies: dyspnea or productive cough GI: Denies: abdominal pain, nausea, vomiting or diarrhea : Denies: flank pain Musc: Reports: joint pain (rt posterior hip); Denies: neck pain, back pain, extremity pain, extremity swelling, joint swelling, joint redness, joint warmth, limited range of motion or muscle weakness Skin/Breast: Denies: rash Neuro: Denies: headache(s), numbness in extremities or weakness in extremities PFSH ED PFSH: Medical History GERD (gastroesophageal reflux disease) Bilateral carotid artery stenosis without cerebral infarction Closed head injury Mixed hyperlipidemia 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 disc disorder 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 region Lumbar stenosis without neurogenic claudication Stenosis of cervical spine with myelopathy 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 Pain management contract signed HX: breast cancer ER MT negative, 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 status post radiation therapy and hormonal therapy, currently on Femara Stroke (cerebrum) Hx of stroke in February 07, 2019 Spondylolisthesis of cervical region Cervical disc disorder with myelopathy of mid-cervical region Chronic bronchitis Surgical History History of colonoscopy 2020 S/P total left hip arthroplasty Date of procedure: February 10, 2022 Diagnosis: Severe osteoarthritis left hip Procedure done: Left total hip arthroplasty Implants: The Abbi total hip system with the following implants: A 46 mm by C Trident II solid back acetabular shell, an MDM cementless liner 36 mm inner diameter by C alpha code and Accolade II size 4 with 127 degree neck angle hip stem with a 22.2 mm outer diameter +0 mm neck offset femoral head and a hoahaoism X3 insert size 22.2 mm inner diameter by 36C Status post carotid endarterectomy History of left breast biopsy Port-A-Cath in place 04/16/20 History of cholecystectomy History of hysterectomy / BSO / appendectomy H/O total hip arthroplasty Right Social History Smoking and tobacco/nicotine status: never used tobacco/nicotine Alcohol intake: never Substance/Drug Use: never Lives independently: Yes Household members: spouse Marital status: Current occupational status: retired Physical Exam Const: COMMON NORMALS: no acute distress, no limitations, healthy appearing, alert and well nourished OTHER: baseline mentation HENMT: COMMON NORMALS: normocephalic and atraumatic HEAD & SCALP: normocephalic and atraumatic; no Vidal's sign and no raccoon eyes Eye: COMMON NORMALS: Equal, round and reactive pupils present and EOMs intact bilaterally PUPIL: Yes Equal, round and reactive pupils present Neck/C-Spine: COMMON NORMALS: full ROM, supple and no meningeal signs Chest: COMMONS NORMALS: normal inspection of the chest and normal palpation of entire chest wall Resp: COMMON NORMALS: normal respiratory effort, No use of accessory muscles and clear to auscultation bilaterally AUSCULTATION: clear to auscultation bilaterally Cardio: COMMON NORMALS: regular rate and regular rhythm RATE: regular rate RHYTHM: regular rhythm GI: COMMON NORMALS: Normal to inspection, nondistended, normoactive bowel sounds present, Soft to palpation and non-tender PALPATION: Yes Soft to palpation Extremity: COMMON NORMALS: full ROM, capillary refill normal, no joint enlargement and no clubbing, cyanosis or edema NARRATIVE EXTREMITY EXAM: Tenderness to palpation to right posterolateral hip with no deformity of the right lower extremity. No shortening or internal/external rotation. Distal neurovascular exam is normal. Chronic healing abrasion to right anterior knee. Neuro: COMMON NORMALS: moves all extremities, no focal motor deficits and no sensory deficits noted SENSORIUM/ORIENTATION: Yes alert MENINGEAL SIGNS: Yes no meningeal signs Skin: COMMON NORMALS: no rashes or lesions noted GENERAL SKIN EXAM: no rashes or lesions noted Course Vital Signs: Vital signs: Vital Signs Temperature 98.8 F 08/11/25 14:04 Pulse Rate 81 08/11/25 14:04 Respiratory Rate 18 08/11/25 14:04 Blood Pressure 170/93 08/11/25 14:04 Pulse Oximetry 99 08/11/25 14:04 Oxygen Delivery Me thod Room Air 08/11/25 14:04 MDM - Back Pain/Injury Medical Decision Making Patient presented with son for complaints of fall. Initially had reported to son that she was having abdominal cramping but here stating she never had abdominal cramping and that she fell while inside earlier today and is having pain to the right posterolateral hip. She has a history of dementia, and multiple previous ED visits. X-ray of the hip and pelvis showing possible right inferior pubic ramus fracture, CT was ordered but she stated she wanted to go home. CT had been performed prior to this, son also stating wants to go home. Patient's neurological status is intact on exam, will be allowed discharge home. Pain controlled here in the ED. Labs Radiology Impressions Hip/Pelvis X-Ray 08/11/25 14:26 IMPRESSION: 1. Possible right inferior pubic ramus fracture, decreased bone mineral density limits evaluation, CT could further characterize this. 2. Degenerative changes throughout the spine. 3. Bilateral hip arthroplasty changes. All radiology interpretation(s) finalized by discharge Discharge Plan Discharge Patient Disposition: Home Clinical Impression: Contusion of lower back and pelvis, initial encounter Fall Qualifiers: Encounter type: initial encounter Qualified Code(s): W19.XXXA - Unspecified fall, initial encounter Condition: Stable Prescriptions: No Action ondansetron 4 mg tablet,disintegrating 4 mg PO Q6H PRN (Reason: nausea and vomiting) Qty: 14 0RF magnesium hydroxide [Milk of Magnesia] 400 mg/5 mL Suspension 30 ml PO QPM PRN (Reason: Constipation) bismuth subsalicylate [Pepto-Bismol] 262 mg/15 mL Suspension 262 mg PO DAILY PRN (Reason: Diarrhea) Fleet Enema 19-7 gram/118 mL Enema 118 ml MT DAILY PRN (Reason: Constipation) Ex-Lax Maximum Strength 25 mg Tablet 25 mg PO DAILY PRN (Reason: Constipation) brimonidine [Alphagan P] 0.1 % drops 1 drp ophthalmic (eye) BID mupirocin 2 % ointment See Rx Instructions .ROUTE .COMPLEX Rx Instructions: APPLY A SMALL AMOUNT OF OINTMENT TOPICALLY TO AFFECTED AREA THREE TIMES DAILY. aspirin 81 mg Tablet,Delayed Release (Dr/Ec) 81 mg PO DAILY Qty: 30 0RF losartan 50 mg Tablet 25 mg PO DAILY Qty: 30 1RF spironolactone 25 mg tablet 12.5 mg PO DAILY Qty: 15 1RF Discharge Orders: Discharge ED (Routine); Ordered 08/11/25 Ordered By: Mychal Vyas Referrals: Jackson Yi MD [Primary Care Provider, [facility]] Patient Instructions: Opioid Safety, Pain Management, Patient Portal & [facility] Instructions Activity Restrictions/Additional Instructions: Lower Back Contusion Discharge You have been diagnosed with a lower back contusion (bruise). Most people with this type of injury get better over time, even without special treatment. Your CT scan of the pelvis was not completed, so it is important to watch for any new symptoms. What to expect: - Most back pain improves within a few weeks. It is normal to have some pain, stiffness, or soreness. - Try to stay as active as you can. Gentle movement and walking are helpful. Avoid staying in bed for long periods, as this can slow your recovery. - You may use a heating pad on your lower back for comfort, but be careful not to burn your skin. Pain control: - Take [place] 2.5 mg only as instructed for breakthrough pain. Do not take more than the prescribed amount. [place] contains an opioid, which can cause side effects like sleepiness, constipation, and confusion, especially in older adults. If you feel very sleepy, confused, or have trouble breathing, stop taking [place] and seek medical help right away. - If you need additional pain relief, acetaminophen (Tylenol) may be used, but do not take more than 2,000 mg per day due to your age. Avoid ibuprofen or other NSAIDs unless your doctor says it is safe, as these can cause stomach, kidney, or heart problems in older adults. When to seek medical attention: - Go to the emergency room if you have new or severe pain, cannot walk, have numbness or weakness in your legs, lose control of your bladder or bowels, or develop fever or chills - If you notice any swelling, bruising, or pain in your groin or pelvis, let your doctor know, as this could mean a fracture. Follow-up: - Schedule an appointment with your primary care provider as soon as possible to review your injury and discuss the results of any pending tests. - Bring this handout to your appointment. Other tips: - Avoid heavy lifting, twisting, or strenuous activity until you feel better. - If you have questions about your medications or symptoms, call your doctor. Remember: Most back injuries heal well with time, gentle movement, and safe pain control. Staying active and following up with your doctor are important for your recovery. Print Language: Korean Coding Level of Care Code ED Captain/Check Airman for Hardy Enriquez
[2025-08-11] MEDS: HYDROcodone-acetaminophen 5-325 mg Tablet 1 TAB PO (14:57)
--- NOTE | 2025-08-11 15:54 | CTR_ITS ---
PROCEDURE INFORMATION: Exam: CT Pelvis Without Contrast, Skeleton Exam date and time: 08/11/2025 4:20 PM Age: 80 years old Clinical indication: Injury or trauma; Fall; Blunt trauma (contusions or hematomas); Right; Prior surgery; Surgery date: 6+ months; Surgery type: Obi hips; Additional info: Fall/hip and back pain, possible pubic rami fracture TECHNIQUE: Imaging protocol: Computed tomography of the pelvis without contrast. Exam focused on the skeleton. Radiation optimization: All CT scans at this facility use at least one of these dose optimization techniques: automated exposure control; mA and/or kV adjustment per patient size (includes targeted exams where dose is matched to clinical indication); or iterative reconstruction. COMPARISON: CT abdomen pelvis w con* [id number] 08/03/2025 10:32 AM RADIATION DOSE METRICS: Total DLP (mGy-cm): 303.35 FINDINGS: Intestine: Colonic diverticulosis without definite significant acute inflammatory changes. Vasculature: Aortic atherosclerosis. Bones/joints: Bilateral hip prosthesis. No definite acute fracture, subluxation, dislocation. Moderate degenerative changes of the lower lumbar spine. Soft tissues: Fat containing left inguinal hernia. CT/CT pelvis wo con [id number] IMPRESSION: Bilateral hip prosthesis. No definite acute fracture, subluxation, dislocation.
[2025-08-11] MEDS: HYDROcodone-acetaminophen 5-325 mg Tablet 2 TAB PO (16:49)
== END 2025-08-11 16:50 | disposition home or self-care (01) ==
PROVIDERS: Emergency Provider Physician Assistant; PCP Family Medicine
DX: S30.0XXA Contusion of lower back and pelvis, initial encounter (principal); W19.XXXA Unspecified fall, initial encounter
CPT/HCPCS: 72192; 73502; 99284; J9999

== ENCOUNTER 2025-10-15 15:04 | Emergency (ER) | payer MEDICARE, SELFPAY ==
[2025-10-15 15:17] VITALS: BP 189/81; PULSE 78; RESP 16; TEMP 36.4; O2SAT 98
--- NOTE | 2025-10-15 15:52 | ED_ITS ---
HPI - Nausea/Vomiting/Diarrhea 2 General: Chief complaint: Nausea/Vomiting/Diarrhea Stated complaint: weakness, nausea, slight dizziness Time Seen by Provider: 10/15/25 15:24 Source: patient and family (son) Mode of arrival: ambulatory Limitations: no limitations History of Present Illness: Patient is an 80-year-old female with multiple prior visits here to the ED who presents with complaints of overall generally feeling unwell beginning today. States that she started having a headache earlier, associated with nausea and an episode of vomiting. Son in the room states he has not seen her vomit at all. Patient states she has had some general lower abdominal discomfort and back pain, and notes trouble urinating. She is not reporting any fevers, cough, shortness of breath, or any other symptoms at this time. She denies needing any medications as she states she feels okay right now. MD elicited complaint: nausea, vomiting and abdominal pain Onset (ago): hour(s) Associated nausea: Yes Pain consistency: other (improved) Associated symtoms: Reports fatigue, headache(s), malaise and nausea; Denies change in vision, chest pain, dysuria or palpitations Related Data Home Medications ?Medication ?Instructions ?Recorded ?Confirmed bismuth subsalicylate 262 mg/15 mL 262 mg PO DAILY PRN Diarrhea 01/18/24 09/17/25 oral suspension (Pepto-Bismol) brimonidine 0.1 % eye drops 1 drp ophthalmic (eye) BID 01/18/24 09/17/25 (Alphagan P) magnesium hydroxide 400 mg/5 mL 30 ml PO QPM PRN Const ipation 01/18/24 09/17/25 oral suspension (Milk of Magnesia) sennosides 25 mg tablet (Ex-Lax 25 mg PO DAILY PRN Con stipation 01/18/24 09/17/25 Maximum Strength) sodium phosphates 19 gram-7 118 ml AK DAILY PRN Consti pation 01/18/24 09/17/25 gram/118 mL enema (Fleet Enema) mupirocin 2 % topical ointment See Rx Instructions .[place] .COMPLEX 06/23/25 09/17/25 Previous Rx's ?Medication ?Instructions ?Recorded aspirin 81 mg tablet,delayed 81 mg PO DAILY #30 tabs 0 06/27/25 release losartan 50 mg tablet 25 mg (1/2 x 50 mg) PO DAILY #30 06/27/25 tabs spironolactone 25 mg tablet 12.5 mg (1/2 x 25 mg) PO D AILY #15 06/27/25 tabs ondansetron 4 mg disintegrating 4 mg PO Q6H PRN nausea and 08/03/25 tablet vomiting #14 tabs clobetasol 0.05 % topical cream 1 applic topical BID 2 weeks #30 09/17/25 grams ondansetron 8 mg disintegrating 8 mg PO Q8H PRN nausea and 09/17/25 tablet vomiting 5 days #15 tabs prednisone 20 mg tablet 40 mg (2 x 20 mg) PO DAILY 5 days 09/17/25 #10 tabs sulfamethoxazole 800 1 tab PO BID 10 days #20 tab s 09/17/25 mg-trimethoprim 160 mg tablet (Bactrim DS) Allergies Allergy/AdvReac Type Severity Reaction Status Date / Time adhesive tape Allergy ALGY-Rash Verified 09/17/25 10:15 Influenza Virus Vaccines Allergy ALGY-Rash Verified 09/17/25 10:15 Review of Systems 2 General: Reports: 10 or more systems reviewed and unremarkable except in HPI and below Const: Reports: fatigue and malaise; Denies: fever(s) or chills Eyes: Denies: change in vision ENMT: Denies: throat pain, ear or mastoid pain or nasal discharge Card: Denies: chest pain, palpitations, swelling of feet/ankles or lightheadedness Resp: Denies: dyspnea, productive cough or wheezing GI: Reports: abdominal pain, nausea and vomiting; Denies: diarrhea or constipation : Denies: flank pain, difficulty voiding, dysuria or urinary frequency Musc: Reports: back pain; Denies: neck pain or joint pain Skin/Breast: Denies: rash Neuro: Reports: headache(s); Denies: numbness in extremities or weakness in extremities PFSH ED 2 PFSH: Medical History GERD (gastroesophageal reflux disease) Bilateral carotid artery stenosis without cerebral infarction Closed head injury Mixed hyperlipidemia 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 disc disorder 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 region Lumbar stenosis without neurogenic claudication Stenosis of cervical spine with myelopathy 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 Pain management contract signed HX: breast cancer ER AK negative, 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 status post radiation therapy and hormonal therapy, currently on Femara Stroke (cerebrum) Hx of stroke in February 07, 2019 Spondylolisthesis of cervical region Cervical disc disorder with myelopathy of mid-cervical region Chronic bronchitis Surgical History History of colonoscopy 2020 S/P total left hip arthroplasty Date of procedure: February 10, 2022 Diagnosis: Severe osteoarthritis left hip Procedure done: Left total hip arthroplasty Implants: The Loop App total hip system with the following implants: A 46 mm by C Trident II solid back acetabular shell, an MDM cementless liner 36 mm inner diameter by C alpha code and Accolade II size 4 with 127 degree neck angle hip stem with a 22.2 mm outer diameter +0 mm neck offset femoral head and a cheondoism X3 insert size 22.2 mm inner diameter by 36C Status post carotid endarterectomy History of left breast biopsy Port-A-Cath in place 04/16/20 History of cholecystectomy History of hysterectomy / BSO / appendectomy H/O total hip arthroplasty Right Social History Smoking and tobacco/nicotine status: never used tobacco/nicotine Alcohol intake: never Substance/Drug Use: never Lives independently: Yes Household members: spouse Marital status: Current occupational status: retired Physical Exam 2 Const: COMMON NORMALS: no acute distress, patient oriented x3 and no limitations GENERAL APPEARANCE: cooperative, comfortable and well developed ORIENTATION/CONSCIOUSNESS: Yes awake, Yes oriented to person, Yes oriented to place and Yes oriented to time HENMT: COMMON NORMALS: normocephalic, atraumatic and hearing grossly normal bilaterally HEAD & SCALP: normocephalic and atraumatic Eye: COMMON NORMALS: Equal, round and reactive pupils present, EOMs intact bilaterally and conjunctivae normal CONJUNCTIVA: Yes conjunctivae normal P UPIL: Yes Equal, round and reactive pupils present Neck/C-Spine: COMMON NORMALS: full ROM, supple and no JVD Resp: COMMON NORMALS: normal respiratory effort, No retractions, No use of accessory muscles and clear to auscultation bilaterally AUSCULTATION: clear to auscultation bilaterally Cardio: COMMON NORMALS: no JVD, regular rate, regular rhythm, No clicks present (Cardio), No murmurs present (Cardio) and No rub (Cardio) RATE: r egular rate RHYTHM: regular rhythm GI: COMMON NORMALS: Normal to inspection, nondistended, normoactive bowel sounds present, Soft to palpation and non-tender AUSCULTATION: Yes normoactive bowel sounds PALPATION: Yes Soft to palpation RECTAL EXAM: d eferred Extremity: COMMON NORMALS: normal to inspection, full ROM and capillary refill normal Neuro: COMMON NORMALS: patient oriented x3, moves all extremities, no focal motor deficits and no sensory deficits noted SENSORIUM/ORIENTATION: Yes oriented to person, Yes oriented to place and Yes oriented to time Skin: COMMON NORMALS: no rashes or lesions noted GENERAL SKIN EXAM: no rashes or lesions noted Course 2 Vital Signs: Vital signs: Vital Signs Temperature 97.5 F L 10/15/25 15:17 Pulse Rate 87 10/15/25 16:04 Respiratory Rate 16 10/15/25 15:17 Blood Pressure 186/142 10/15/25 16:04 Pulse Oximetry 98 10/15/25 16:04 Oxygen Delivery Me thod Room Air 10/15/25 16:04 MDM - Nausea/Vomiting/Diarrhea Medical Decision Making Patient presented for evaluation of multiple symptoms that began today. Clinically stable at time of exam nontoxic and she had no complaints at my time of examination. She had noted symptoms that sounded to be viral, she had no complaints of chest pain or shortness of breath. Slightly hypertensive, she has a history of hypertension, otherwise her vitals have been stable, specifically oxygenating well on room air and afebrile. CBC and CMP unremarkable. Urinalysis showing no signs of UTI. COVID flu RSV swab is negative, I suspect other viral etiology with her. Clinically stable she will discharge home for symptomatic therapy and return with any new or worsening. Patient's son in the room agrees with this plan. Lab Data 10/15/25 16:00 10/15/25 16:00 Laboratory Results WBC 6.87 10^3/uL (3.29-11.43) 10/15/25 16:00 RBC 4.57 10^6/uL (3.85-5.65) 10/15/25 16:00 Hgb 14.20 g/dL (11.27-16.99) 10/15/25 16:00 Hct 43.1 % (36-47) 10/15/25 16:00 MCV 94.3 fl (85-98) 10/15/25 16:00 MCH 31.1 pg (27-33) 10/15/25 16:00 MCHC 32.9 g/dL (30-55) 10/15/25 16:00 RDW 13.7 % (12.1-15.1) 10/15/25 16:00 Plt Count 279 10^3/cmm (157-399) 10/15/25 16:00 MPV 9.1 fL (7.4-10.4) 10/15/25 16:00 Neut % (Auto) 43.1 % 10/15/25 16:00 Lymph % (Auto) 42.6 % 10/15/25 16:00 [place] % (Auto) 11.2 % 10/15/25 16:00 Eos % (Auto) 1.6 % 10/15/25 16:00 Baso % (Auto) 1.2 % 10/15/25 16:00 Neut # (Auto) 2.96 10^3/uL (1.8-7.7) 10/15/25 16:00 Lymph # (Auto) 2.9 10^3/uL (0.8-4.8) 10/15/25 16:00 [place] # (Auto) 0.8 10^3/uL (0.2-0.9) 10/15/25 16:00 Eos # (Auto) 0.1 10^3/uL (0.0-0.8) 10/15/25 16:00 Baso # (Auto) 0.1 10^3/uL (0.0-0.1) 10/15/25 16:00 Nucleated RBC % (auto) 0 % 10/15/25 16:00 Nucleated RBCs # 0.0 /100WBC 10/15/25 16:00 Sodium 142 mmol/L (136-145) 10/15/25 16:00 Potassium 3.5 mmol/L (3.5-5.1) 10/15/25 16:00 Chloride 102 mmol/L (98-107) 10/15/25 16:00 Carbon Dioxide 26 mmol/L (22-29) 10/15/25 16:00 Anion Gap 17.5 (5-19) 10/15/25 16:00 BUN 18 mg/dL (8-23) 10/15/25 16:00 Creatinine 0.8 mg/dL (0.5-0.9) 10/15/25 16:00 GFR Calculation Not Reportable 10/15/25 16:00 Glucose 93 mg/dL (65-115) 10/15/25 16:00 Calculated Osmolality 296 mOsm/kg (285-295) H 10/15/25 16:00 Calcium 10.0 mg/dL (8.5-10.5) 10/15/25 16:00 Total Bilirubin 0.4 mg/dL (0.15-1.2) 10/15/25 16:00 AST 24 U/L (0-32) 10/15/25 16:00 ALT 14 U/L (0-33) 10/15/25 16:00 Alkaline Phosphatase 80 U/L (35-105) 10/15/25 16:00 Total Protein 7.2 g/dL (6.6-8.7) 10/15/25 16:00 Albumin 4.2 g/dL (3.5-5.2) 10/15/25 16:00 Globulin 3.0 g/dL (1.3-4.6) 10/15/25 16:00 Urine Color Yellow (Yellow) 10/15/25 15:48 Urine Appearance Clear (CLEAR) 10/15/25 15:48 Urine pH 8.5 (5-7) A 10/15/25 15:48 Ur Specific [place] 1.011 (1.005-1.030) 10/15/25 15:48 Urine Protein Negative (Negative) 10/15/25 15:48 Urine Glucose (UA) Negative (Normal) 10/15/25 15:48 Urine Ketones Negative (Negative) 10/15/25 15:48 Urine Blood Negative (Negative) 10/15/25 15:48 Urine Nitrate Negative (Negative) 10/15/25 15:48 Urine Bilirubin Negative (Negative) 10/15/25 15:48 Urine Urobilinogen 0.2 mg/dL (Negative) 10/15/25 15:48 Ur Leukocyte Esterase Trace (Negative) A 10/15/25 15:48 Urine RBC 0-2 /hpf (0-2) 10/15/25 15:48 Urine WBC 0-5 /hpf (0-5) 10/15/25 15:48 Ur Squamous Epith Cells 0-5 /hpf (0-5) 10/15/25 15:48 Amorphous Sediment Not Reportable 10/15/25 15:48 Urine Bacteria None seen /hpf (NONE) 10/15/25 15:48 Hyaline Casts 0-4 /lpf H 10/15/25 15:48 Influenza A (PCR) Negative (Negative) 10/15/25 16:07 Influenza Type B (PCR) Negative (Negative) 10/15/25 16:07 RSV (PCR) Negative (Negative) 10/15/25 16:07 SARS-CoV-2 (PCR) Negative (Negative) 10/15/25 16:07 No radiology studies performed this visit Discharge Plan Discharge Patient Disposition: Home Clinical Impression: Acute viral syndrome Condition: Stable Prescriptions: No Action prednisone 20 mg tablet 40 mg PO DAILY 5 Days Qty: 10 0RF clobetasol 0.05 % cream 1 applic topical BID 14 Days Qty: 30 0RF Rx Instructions: apply to rash sulfamethoxazole-trimethoprim [Bactrim DS] 800-160 mg tablet 1 tab PO BID 10 Days Qty: 20 0RF ondansetron 8 mg tablet,disintegrating 8 mg PO Q8H PRN (Reason: nausea and vomiting) 5 Days Qty: 15 0RF ondansetron 4 mg tablet,disintegrating 4 mg PO Q6H PRN (Reason: nausea and vomiting) Qty: 14 0RF magnesium hydroxide [Milk of Magnesia] 400 mg/5 mL Suspension 30 ml PO QPM PRN (Reason: Constipation) bismuth subsalicylate [Pepto-Bismol] 262 mg/15 mL Suspension 262 mg PO DAILY PRN (Reason: Diarrhea) Fleet Enema 19-7 gram/118 mL Enema 118 ml AK DAILY PRN (Reason: Constipation) Ex-Lax Maximum Strength 25 mg Tablet 25 mg PO DAILY PRN (Reason: Constipation) brimonidine [Alphagan P] 0.1 % drops 1 drp ophthalmic (eye) BID mupirocin 2 % ointment See Rx Instructions .ROUTE .COMPLEX Rx Instructions: APPLY A SMALL AMOUNT OF OINTMENT TOPICALLY TO AFFECTED AREA THREE TIMES DAILY. aspirin 81 mg Tablet,Delayed Release (Dr/Ec) 81 mg PO DAILY Qty: 30 0RF losartan 50 mg Tablet 25 mg PO DAILY Qty: 30 1RF spironolactone 25 mg tablet 12.5 mg PO DAILY Qty: 15 1RF Discharge Orders: Discharge ED (Routine); Ordered 10/15/25 Ordered By: Mychal Vyas Referrals: Jackson Yi MD [Primary Care Provider, [facility]] Patient Instructions: Patient Portal & [place]aya Instructions Activity Restrictions/Additional Instructions: Discharge Instructions Your Diagnosis You have been diagnosed with an acute viral syndrome. This means you have an infection caused by a virus. While testing for COVID-19, influenza, and RSV was negative, many other viruses can cause similar symptoms in older adults, including rhinovirus, coronavirus, parainfluenza virus, and human metapneumovirus. What to Expect Viral infections typically improve with time and rest. Most people feel better within 7-10 days, though some symptoms like fatigue and cough may last longer. Older adults may experience symptoms differently than younger people and may feel more tired or weak. Home Care Instructions - Rest: Get plenty of sleep and avoid strenuous activities until you feel better - Fluids: Drink 6-8 glasses of water or other fluids daily to stay hydrated - Fever management: Take acetaminophen (Tylenol) or ibuprofen (Advil/Motrin) as directed for fever or body aches - Nutrition: Eat small, frequent meals even if you don't feel hungry - Hand hygiene: Wash your hands frequently to prevent spreading the virus to others When to Seek Medical Attention Call your doctor or return to the emergency department if you develop: - Difficulty breathing or shortness of breath at rest - Chest pain or pressure - Confusion or difficulty staying awake - Persistent fever lasting more than 3-4 days - Inability to keep down fluids or signs of dehydration (decreased urination, dizziness) - Worsening symptoms after initial improvement - Oxygen levels below 90% if you have a home pulse oximeter Older adults with viral infections are at higher risk for complications including pneumonia and may need closer monitoring. Preventing Spread to Others - Stay home until you feel better and have been fever-free for 24 hours without fever-reducing medication - Cover your mouth and nose when coughing or sneezing - Avoid close contact with others, especially those who are elderly or have chronic health conditions - Clean frequently touched surfaces regularly Follow-Up Care Contact your primary care doctor within 3-5 days if symptoms are not improving. If you develop new or worsening symptoms before then, seek medical attention sooner. Special Considerations Because you are over 65 years old, you are at higher risk for complications from viral respiratory infections. It is important to monitor your symptoms closely and seek medical attention promptly if you notice any concerning changes. Consider discussing annual influenza vaccination with your doctor, as this can help prevent future respiratory infections. Print Language: [place] Timorese Coding Level of Care Code ED Neurodiagnostic Technician for Hardy Enriquez
[2025-10-15 16:04] VITALS: BP 186/142; PULSE 87; O2SAT 98
--- NOTE | 2025-10-15 16:13 | PC.NURSE ---
attempted ua pt. did not urinate in hat instead toilet.
[2025-10-15 16:18] LABS: Hematocrit 43.1 % (36-47); Hemoglobin 14.20 g/dL (11.27-16.99); Mean Corpuscular HGB Conc 32.9 g/dL (30-55); Mean Corpuscular Hemoglobin 31.1 pg (27-33); Mean Corpuscular Volume 94.3 fl (85-98); Nucleated Red Blood Cells % 0 %; Platelet Count 279 10^3/cmm (157-399); Red Blood Count 4.57 10^6/uL (3.85-5.65); White Blood Count 6.87 10^3/uL (3.29-11.43)
[2025-10-15 16:41] LABS: Alanine Aminotransferase 14 U/L (0-33); Albumin Level 4.2 g/dL (3.5-5.2); Alkaline Phosphatase 80 U/L (35-105); Anion Gap 17.5 (5-19); Aspartate Amino Transferase 24 U/L (0-32); Blood Urea Nitrogen 18 mg/dL (8-23); Calcium 10.0 mg/dL (8.5-10.5); Carbon Dioxide 26 mmol/L (22-29); Chloride 102 mmol/L (98-107); Globulin 3.0 g/dL (1.3-4.6); Glucose 93 mg/dL (65-115); Osmolality Calculated 296 mOsm/kg (285-295); Potassium 3.5 mmol/L (3.5-5.1); Sodium 142 mmol/L (136-145); Total Protein 7.2 g/dL (6.6-8.7)
[2025-10-15 16:55] LABS: Glucose Urine UA Negative (Normal); Nitrate Urine Negative (Negative); Specific Gravity, Urine 1.011 (1.005-1.030)
[2025-10-15 16:57] LABS: Add Urine Microscopic? YES
[2025-10-15 17:08] LABS: Respiratory Syncytial Virus Ce NEGATIVE (Negative); SARS-CoV-2 PCR NEGATIVE (Negative)
[2025-10-15 17:19] VITALS: BP 182/96
[2025-10-15 17:24] VITALS: BP 182/96; PULSE 94; O2SAT 92
--- OUTSIDE RECORDS SUMMARY | 2025-10-15 18:54 | XMS_ITS | Encounter Summary ---
Author Organization [facility] Address [address] [place] [address] Care Team Providers Care Master Automotive Glass Technician Name Role Phone Unavailable Primary Care Provider Unavailabl e Reason for Referral * PET Scan (Urgent) - Closed Specialty Diagnoses / Procedures Referred By Deborah t Referred To Contact Radiology Diagnoses Lymphoma, non-Hodgkin's (CMS/HCC) Procedures PET TUMOR IMG W CT SKL BSE MID THG Deana Barahona FNP [address] [place] [address] Phone: tel: fax: [facility] [address] [place] [address] Phone: tel: fax: Referral ID Status Reason Start Date Expiration Date V isits Requested Visits Authorized [id number] Closed [facility] CTS to Schedule 08/12/2020 10/10/2020 1 1 Encounter Details Date Type Department Care Team (Late st Contact Info) Description 06/27/2020 Ancillary Orders [facility] Pre-Registration [place] CALL TO MAKE APPOINTMENT ONLY [address] [place] [address] Deana Barahona FNP [address] [place] [address] Lymphoma, non-Hodgkin's (CMS/HCC) Social History [...] Accreditation of Nuclear Medicine Laboratories (IAC Nuclear/PET). [id number] Narrative 08/15/2020 5:53 PM CDT Radionuclide PET Metabolic Tumor Imaging with CT Attenuation Correction and Anatomic Localization from Skull Base to Mid Thigh: Radiopharmaceutical: [id number] Dose: 13.9 mCi right AC IV Time of Injection: 14:40 hrs Clinical Indication: Initial treatment strategy to evaluate non-Hodgkin lymphoma. FDG ([id number]) PET imaging was performed at 15:40 hrs [...] from Skull Base to Mid Thigh: Radiopharmaceutical: [id number] Dose: 13.9 mCi right AC IV Time of Injection: 14:40 hrs Clinical Indication: Initial treatment strategy to evaluate non-Hodgkin lymphoma. FDG ([id number]) PET imaging was performed at 15:40 hrs [...] Accreditation of Nuclear Medicine Laboratories (IAC Nuclear/PET). [id number] Deana Barahona HYDRAULIC STRAINER OPERATOR PE ORDERABLES Final Result documented in this encounter Visit Diagnoses Diagnosis Lymphoma, non-Hodgkin's (CMS/HCC) Lymphosarcoma, unspecified site, extranodal and solid organ sites Lymphoma, non-Hodgkin's (CMS/HCC) Lymphosarcoma, unspecified site, extranodal and solid organ sites documented in this encounter
--- OUTSIDE RECORDS SUMMARY | 2025-10-15 18:54 | XMS_ITS | Clinical Summary ---
Author Organization [facility] Address [address] [place] [address] Phone Care Team Providers Care Paint Coating Machine Operator Name Role Phone Unavailable Primary [...] series) 2018 INFLUENZA VACCINE (#1) 2025 Insurance [id number] [place] [address] [facility]
--- OUTSIDE RECORDS SUMMARY | 2025-10-15 18:54 | XMS_ITS | Encounter Summary ---
Author Organization [facility] Address [address] [place] [address] Care Team Providers Care Assistance Specialist Name Role Phone Unavailable Primary Care Provider Unavailabl e Encounter Details Date Type Department Care Team (Late st Contact Info) Description 10/16/2020 Ancillary Orders [facility] Pre-Registration [place] CALL TO MAKE APPOINTMENT ONLY [address] [place] [address] Carl Thompson MD [address] [place] [address] Non-Hodgkin lymphoma, unspecified, extranodal and solid organ sites (CMS/HCC); Malignant neoplasm of upper-outer quadrant of left female breast (CMS/HCC); Estrogen receptor positive status (ER+); 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
--- OUTSIDE RECORDS SUMMARY | 2025-10-15 18:54 | XMS_ITS | Clinical Summary ---
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
--- OUTSIDE RECORDS SUMMARY | 2025-10-15 18:54 | XMS_ITS | Data Portability ---
Author Organization DANILO French Xie [facility] Address [address] [place] [id number] Care Team Providers Care Lacemaker Name Role Phone BEN YI Primary Care [...] Organization Details Last Modified Time Details Appointments OFFICE VISIT 15 2024 09:45A Gideon Yi MD Not available Not available Not available Lab CMP, serum or plasma 2024 025 ZARA [facility], [address], [address], [place], [address], 01/01/2025 12:33:14 CBC 2024 025 ZARA [facility], [address], [address], [place], [address], 01/01/2025 12:30:57 lipid panel, blood 2024 025 ZARA [facility], [address], [address], [place], [address], 01/01/2025 12:33:17 Referral home health referral 2024 025 [email or web address] [facility], [address] [place], [address], 07/11/2025 11:12:21 podiatris t referral 2023 024 [facility], [address] [place], [address], 10/11/2024 12:00:47 Procedures None recorded. Surgeries None recorded. Imaging None recorded. Medication Orders mupirocin 2 % topical ointment 2024 025 [facility], [address], [place], [address], 07/03/2025 17:14:01 amlodipin e 2.5 mg tablet 2024 025 [facility], [address], [place], [address], 01/01/2025 11:09:00 amlodipin e 2.5 mg tablet 2023 025 [facility], [address], [address], 01/01/2025 10:55:54 Patient TargetsNo targets recorded. Patient InstructionsNo instructions recorded. 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 Referring Physician: [facility], Encounter Date: 10/02/2024 Home Health Referral for Fra il elderly Referring Physician: [facility], Encounter Date: 07/03/2025 Results Created Date Observation Date Name Description Value Unit Range Abnormal Flag Note LastModifiedBy Organization Detail LastModifiedTime 01/02/20 25 01/01/2025 CBC WBC 8.2 x10 4.0-10 .5 Not Available [facility] [address] [facility] 1, [place], [address], 01/01/2025 12:30:57 01/02/20 25 01/01/2025 CBC RBC 4.28 x10 3.50-5 .50 Not Available [facility] [address] [address] [facility] 1, [place], [address], 01/01/2025 12:30:57 01/02/20 25 01/01/2025 CBC HGB 13.6 g/dL 12.0-1 6.0 Not Available [facility] [address] [facility] [address] [address] [facility] 1, [place], [address], 01/01/2025 12:30:57 01/02/20 25 01/01/2025 CBC HCT 40.2 % 37.0-4 7.0 Not Available [facility] [address] [facility] [address] [facility] 1, [place], [address], 01/01/2025 12:30:57 01/02/20 25 01/01/2025 CBC MCV 94.0 fL 80.0-9 9.9 Not Available [facility] [address] [facility] [address] [facility] 1, [place], [address], 01/01/2025 12:30:57 01/02/20 25 01/01/2025 CBC MCH 31.7 pg 27.0-3 2.0 Not Available [facility] [address] [facility] [address] [facility] 1, [place], [address], 01/01/2025 12:30:57 01/02/20 25 01/01/2025 CBC MCHC 33.8 g/dL 32.0-3 6.0 Not Available [facility] [address] [facility] [address] [facility] 1, [place], [address], 01/01/2025 12:30:57 01/02/20 25 01/01/2025 CBC RDW 13.9 % 11.5-1 4.5 Not Available [facility] [address] [facility] [address] [facility] 1, [place], [address], 01/01/2025 12:30:57 01/02/20 25 01/01/2025 CBC plt 271.2 x10 140.0- 451.0 Not Available [facility] [address] [facility] [address] [facility] 1, [place], [address], 01/01/2025 12:30:57 01/02/20 25 01/01/2025 CBC lymphocytes % 38.4 % 20.0-5 0.0 Not Available [facility] [address] [address] [facility] 1, [place], [address], 01/01/2025 12:30:57 01/02/20 25 01/01/2025 CBC granulcytes % 49.9 % 30.0-7 0.0 Not Available [facility] [address] [facility] 1, [place], [address], 01/01/2025 12:30:57 01/02/20 25 01/01/2025 CBC monocytes % 10.3 % 2.0-16 .0 Not Available [facility] [address] [facility] 1, [place], [address], 01/01/2025 12:30:57 01/02/20 25 01/01/2025 CBC granulcytes# 4.1 x10 Not Sherice ilable [facility] [address] [facility] 1, [place], [address], 01/01/2025 12:30:57 01/02/20 25 01/01/2025 CBC lymphocytes # 3.1 x10 Not Available [facility] [address] [facility] [address] [facility] 1, [place], [address], 01/01/2025 12:30:57 01/02/20 25 01/01/2025 CBC monocytes # 0.8 x10 Not Avai lable [facility] [address] [facility] 1, [place], [address], 01/01/2025 12:30:57 01/02/20 25 01/01/2025 CMP (FEMA LE) glucose 85.0 mg/dL 60.0-9 9.0 Not Available [facility] [address] [facility] 1, [place], [address], 01/01/2025 12:33:14 01/02/20 25 01/01/2025 CMP (FEMA LE) BUN (blood urea nitrogen) 28.0 mg/dL 10.0-2 6.0 high Not Available [facility] [address] [facility] 1, [place], [address], 01/01/2025 12:33:14 01/02/20 25 01/01/2025 CMP (FEMA LE) creatinine (serum) 0.8 mg/dL 0.4-1. 5 Not Available [facility] [address] [facility] 1, [place], [address], 01/01/2025 12:33:14 01/02/20 25 01/01/2025 CMP (FEMA LE) BUN/creatini ne ratio 35.00 ratio Not Available [facility] [address] [facility] 1, [place], [address], 01/01/2025 12:33:14 01/02/20 25 01/01/2025 CMP (FEMA LE) eGFR calculated 73.2 Not Available [facility] [address] [facility] 1, [place], [address], 01/01/2025 12:33:14 01/02/20 25 01/01/2025 CMP (FEMA LE) total protein 8.1 g/dL 6.0-8. 5 Not Available [facility] [address] [facility], [place], [address], 01/01/2025 12:33:14 01/02/20 25 01/01/2025 CMP (FEMA LE) total bilirubin 0.7 mg/dL 0.2-1. 3 Not Available [facility] [address] [facility] 1, [place], [address], 01/01/2025 12:33:14 01/02/20 25 01/01/2025 CMP (FEMA LE) albumin 4.5 g/dL 3.5-5. 5 Not Available [facility] [address] [facility] 1, [place], [address], 01/01/2025 12:33:14 01/02/20 25 01/01/2025 CMP (FEMA LE) globulin 3.6 calc Not Available [facility] [address] [facility] 1, [place], [address], 01/01/2025 12:33:14 01/02/20 25 01/01/2025 CMP (FEMA LE) AST (SGOT) 30.0 U/L 0.0-46 .0 Not Available [facility] [address] [facility] 1, [place], [address], 01/01/2025 12:33:14 01/02/20 25 01/01/2025 CMP (FEMA LE) altv (SGPT) 18.0 U/L 13.0-6 9.0 normal Not Available [facility] [address] [facility] 1, [place], [address], 01/01/2025 12:33:14 01/02/20 25 01/01/2025 CMP (FEMA LE) A/G ratio 1.3 ratio Not Available [facility] [address] [facility] 1, [place], [address], 01/01/2025 12:33:14 01/02/20 25 01/01/2025 CMP (FEMA LE) ALP phos 89.0 U/L 30.0-1 40.0 normal Not Available [facility] [address] [facility] [address], [place], [address], 01/01/2025 12:33:14 01/02/20 25 01/01/2025 CMP (FEMA LE) calcium 10.6 mg/dL 8.4-10 .5 high Not Available [facility] [address] [facility] 1, [place], [address], 01/01/2025 12:33:14 01/02/20 25 01/01/2025 CMP (FEMA LE) sodium 141.0 mmol/ L 136.0- 145.0 Not Available [facility] [address] [facility] 1, [place], [address], 01/01/2025 12:33:14 01/02/20 25 01/01/2025 CMP (FEMA LE) potassium 4.4 mmol/ L 3.5-5. 1 Not Available [facility] [address] [facility] 1, [place], [address], 01/01/2025 12:33:14 01/02/20 25 01/01/2025 CMP (FEMA LE) chloride 100.0 mmol/ L 98.0-1 10.0 normal Not Available [facility] [address] [facility] 1, [place], [address], 01/01/2025 12:33:14 01/02/20 25 01/01/2025 CMP (FEMA LE) C02 34.0 mmol/ L 22.0-3 1.0 high Not Available [facility] [address] [facility] 1, [place], [address], 01/01/2025 12:33:14 01/02/20 25 01/01/2025 CMP (FEMA LE) anion gap 7.0 calc Not Available [facility] [address] [facility] 1, [place], [address], 01/01/2025 12:33:14 01/02/20 25 01/01/2025 CMP (FEMA LE) osmolality 295.6 calc Not Available [facility] [address] [facility] 1, [place], [address], 01/01/2025 12:33:14 01/02/20 25 01/01/2025 LIPID PROFI LE (FEMA LE) cholesterol 250.0 mg/dL 0.0-20 0.0 high Not Available [facility] [address] [facility] 1, [place], [address], 01/01/2025 12:33:17 01/02/20 25 01/01/2025 LIPID PROFI LE (FEMA LE) trig 245.0 mg/dL 0.0-15 0.0 high Not Available [facility] [address] [facility] 1, [place], [address], 01/01/2025 12:33:17 01/02/20 25 01/01/2025 LIPID PROFI LE (FEMA LE) HDL - direct 40.0 mg/dL >40.0 Not Available [facility] [address] [facility] 1, [place], [address], 01/01/2025 12:33:17 01/02/20 25 01/01/2025 LIPID PROFI LE (FEMA LE) VLDL - direct 49.0 mg/dL Not Available [facility] [address] [facility] 1, [place], [address], 01/01/2025 12:33:17 01/02/20 25 01/01/2025 LIPID PROFI LE (FEMA LE) LDL - direct 161.0 mg/dL 0.0-13 0.0 high Not Available [facility] [address] [facility] 1, [place], [address], 01/01/2025 12:33:17 Result Notes None recorded. Problems Name Problem SNOMED Code Status Onset Date Resolution Date Notes Provider Name and Address Organization Details Recorded Time Surgical follow-u p 002046955 Completed 12/31/2024 Mere shannon [facility] 16:45:32 Chronic constipa tion 089470990 Active Mere shannon [facility] 16:48:33 Degenera tion of lumbar interver tebral disc 72001890 Active Ben Yi MD [address] [place] [address], [address], [facility] 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 12:05:56 Hyperten sive disorder 55150338 Completed 12/31/2024 Removal Reason: duplicat e Mere shannon [facility] 16:46:36 History of malignan t neoplasm of breast 188953319 Active Mere shannon [facility] 16:44:28 Acute urinary tract infectio n 166252413 Completed 12/31/2024 Ben Yi MD [address] [place] [address], [address], [facility] 15:29:46 Carpal tunnel syndrome 03442915 Completed 01/01/2025 Removal Reason: s/p surgery Ben iY MD [address] [place], [address], [facility] 5 12:04:24 History of total hip arthropl asty 83270839138 6 Completed 01/01/2025 Ben Yi MD [address] [place], [address], [facility] 5 12:06:06 Cerebrov ascular accident 479851050 Completed 202101/01/2025 STROKE; 06/30/20 22 3:06PM by Arturo Hernandezic al Summary; Promoted ; acuity set as *; Ben Yi MD [address] [place], [address], [facility] 5 12:07:52 Chronic bronchio litis 516321150 Active 2021 CHRONIC BRONCHIO LITIS; 06/30/20 22 3:04PM by Arturo Hernandezic al Summary; Promoted ; acuity set as *; [facility] 20:47:29 Bilatera l stenosis of carotid arteries 081971638 Active 2021 BILATERA L CAROTID ARTERY STENOSIS WITHOUT CEREBRAL INFARCTI ON; 06/30/20 22 3:07PM by Arturo Hernandezic al Summary; Promoted ; acuity set as *; Mere shannon [facility] 5 10:13:12 Hyperlip idemia 55617568 Active 2021 HYPERLIP EMIA; 06/30/20 22 3:06PM by Arturo Hernandezic al Summary; Promoted ; acuity set as *; Mere shannon [facility] 5 16:44:46 Closed injury of head 08509203422 6 Completed 202112/31/2024 CLOSED HEAD INJURY; 06/30/20 3:04PM by Jennifer Alvarez, Historic al Summary; Promoted ; acuity set as *; Mere shannon [facility] 5 16:47:26 Gastroes ophageal reflux disease 280174782 Active 2021 GERD (GASTROE SOPHAGEA L REFLUX DISEASE) ; Impressi on: sx controll ed on current medicati ons.; Recorded 07/08/20 10:44AM by Ben Yi MD, Office Visit; Promoted ; acuity set as *; Mere shannon [facility] 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 5 12:06:55 Primary malignan t neoplasm of female breast 16420938 Completed 202201/01/2025 Ben Yi MD [address] [place] [address], [address] , [facility] 5 12:07:23 Essentia l hyperten haider 80355795 Active 2022 Mere shannon [facility] 5 16:43:37 Hammer toe 665085520 Active 2023 Mere shannon [facility] 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 5 12:43:26 Congesti ve heart failure 75585175 Active 2024 Ben Yi MD [address] [place] [address], [address], [facility] 5 16:53:57 Vascular dementia 272598220 Active 2024 Ben Yi MD [address] [place] [address], [address], [facility] 5 08:45:36 Acute urinary tract infectio n 576199925 Active 2024 Ben Yi MD [address] [place] [address], [address], [facility] 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 5 15:30:15 Problem Notes None recorded. Procedures Surgical History Date Name Laterality Status Provider Name and Address Organization Details Recorded Time procedure on hip completed BILLYCANDIDA MICHELLE [facility] 01/01/2025 10:57:34 Imaging Results None recorded. Procedure Notes None recorded. Medical Equipment None Reported. Allergies Allergen ID Allergen Name Allergen Category Reaction Reaction Severity Criticality Documentation Date Start Date Code Code System Note Provider Name and Address Organization Details Recorded Time 48118 adhesive bandage-a dhes.patsy vr1 medicatio n Not available Not available Not available 05/29/2023 Comme nt: Recor ded 07/08 9:11A M by There Jayda Bains Visit ; Jun salvador; Joel massey ce: *; Reaso n: Drug aller gy; ; Not Available [facility] 3 02:25:20 08795 Vaccine product containin g only influenza virus antigen (medicina l product) medicatio n Not available Not available Not available 05/29/2023 52918 67706 105 SNOMED Comme nt: Recor ded 07/08 9:11A M by There sa Alvarez Offic e Visit ; Jun salvador; Joel massey ce: *; Reaso n: Drug stas gy; ; Ben Yi MD [address] [place] [address], [address] , [facility] 4 12:11:50 Medications Name Sig Start Date [...] completed 0; Recorded 07/08/20 22 9:10AM by Jennfier Alvarez, Office Visit; Not Available Not Available [...] (BMI) Body weight Body temperature Oxygen saturation Heart rate Systolic And Diastolic Provider Name and Address Organization Details Last Updated DateTime 5 157.48 cm 21.9 kg/m2 44317.2 9 g 97.4 [degF] 99 % 51 /min 146/82 mm[Hg] DALE MARTINEZ [facility] 5 11:00:47 Date Recorded Body height Body mass index (BMI) Body weight Oxygen saturation Heart rate Respiratory rate Body temperature Systolic And Diastolic Provider Name and Address Organization Details Last Updated DateTime 5 157.48 cm 21.9 kg/m2 56284.0 8 g 99 % 84 /min 16 /min 98.2 [degF] 140/80 mm[Hg] Jo Stewart [facility] 5 12:08:46 Date Recorded Body height Respiratory rate Body mass index (BMI) Body weight Body temperature Heart rate Oxygen saturation Systolic And Diastolic Provider Name and Address Organization Details Last Updated DateTime 4 157.48 cm 20 /min 21.7 kg/m2 51953.7 g 97 [degF] 80 /min 96 % 120/78 mm[Hg] [facility] 4 11:42:24 Date Recorded Body height Body mass index (BMI) Body weight Oxygen saturation Heart rate Respiratory rate Body temperature Systolic And Diastolic Provider Name and Address Organization Details Last Updated DateTime 5 157.48 cm 22.1 kg/m2 07005.2 4 g 99 % 63 /min 18 /min 97.1 [degF] 120/68 mm[Hg] Mere Ayaz [facility] 5 16:30:43 Date Recorded Body height Respiratory rate Body mass index (BMI) Body weight Body temperature Oxygen saturation Heart rate Systolic And Diastolic Provider Name and Address Organization Details Last Updated DateTime 4 157.48 cm 20 /min 21.1 kg/m2 45424.9 2 g 97.4 [degF] 98 % 88 /min 120/74 mm[Hg] [facility] 4 11:26:19 Social History Question Answer Notes LastModified by Shahab P. Tabatabai, Broker Details LastModified Time Tobacco Smoking Status Never Smoker [facility] 01/01/2025 10:56:21 Are You Blind [...] Functional Status Question Answer Note LastModified by Shahab P. Tabatabai, Broker Details LastModified Time Do you use any [...] Time zoster recombinant 2 completed JENNIFER shannon [facility] 06/16/2024 17:38:13 zoster recombinant 3 completed JENNIFER shannon [facility] 06/16/2024 17:38:13 COVID-19, mRNA, LNP-S, PF, 30 mcg/0.3 mL dose 1 completed JENNIFER shannon [facility] 06/16/2024 17:38:13 COVID-19, mRNA, LNP-S, PF, 30 mcg/0.3 mL dose, roddy-sucrose 2 completed JENNIFER shannon [facility] 06/16/2024 17:38:13 Pneumococcal conjugate PCV20, polysaccharide NSR902 conjugate, adjuvant, PF 4 completed Ben Yi MD [address] [place] [address], [address], [facility] 06/26/2024 15:25:09 Influenza, adjuvanted, trivalent, PF 4 completed Ben Yi MD [address] [place] [address], [address], [facility], Mary 06/26/2024 15:25:09 Past Encounters Encounter ID Performer Location Encounter Start Date Encounter Closed Date Diagnosis/Indication Diagnosis SNOMED-CT Code Diagnosis ICD10 Code Diagnosis IMO Codes Diagnosis Note [id number] Ben Yi MD [facility] [address] [place] [phone] 10/05/2023 14:33:12 10/05/2023 16:56:53 Psoriasis 9927213 L40.9 Possibly psoriasis on her skin. Will treat with steroids. Follow-up if rash returns. Malignant lymphoma of extranodal AND/OR solid organ site 95075300 C85.99 Primary ma lignant neoplasm of female breast 81896562 C50.912 Hyperlipidemia 94158718 E78.5 Spinal jacinto nosis of lumbar region 34162460 M48.062 Essential hypertension 67311731 I10 Patient had elevation of her blood pressure but it is improved today. The patient is not checking it at home, so encouraged her to do so. Follow-up if continued elevations of blood pressure are noted. Encouraged patient to make routine follow-ups . Follow-up in 3 months. [id number] Ben Yi MD [facility] ([facility]) [address] [place] [phone] 11/25/2023 11:30:27 11/28/2023 20:27:06 Cellulitis 503756511 L03.90 Concerned about infection developing in the wound. Will start antibiotic s. Discussed wound care with patient. Follow-up with PCP if symptoms do not improve or worsen. [id number] Ben Yi MD [facility] ([facility]) [address] [place] [phone] 02/03/2024 10:35:25 02/03/2024 11:23:03 Dog bite of hand 616604726 S61.451A Does takePatien t reports that the [...] symptoms change or wound does not improving. [id number] Ben Yi MD [facility] ([facility]) [address] [place] [phone] 02/07/2024 11:23:21 02/07/2024 12:01:27 Dog bite of hand 144904838 S61.451A Concerned that the infection is contributi ng to the patient's pain. The wound itself does not look infected. Mended applying wet-to-dry dressings and this was demonstrat ed to the patient. Complete course of antibiotic s. Will follow-up in 1 week. [id number] MANN JOSE [facility] ([facility]) [address] [place] [phone] 02/11/2024 14:49:21 02/11/2024 16:05:32 Dog bite of hand 892197724 S61.451D Discussed to continue washing with soap and water daily. Keep area covered when outside. May open to air when inside. Return for wound check if you develop redness, purulent drainage, increased pain, or concerns arise. [id number] Ben Yi MD [facility] ([facility]) [address] [place] [phone] 5 03/24/2024 14:25:37 03/24/2024 15:10:10 Essential hypertension 37544078 I10 Reviewed pressure log. She has labile [...] months or sooner if there are issues. [id number] Ben Yi MD [facility] ([facility]) [address] [place] [phone] 06/26/2024 11:35:08 06/26/2024 12:44:53 Essential hypertension 80132651 I10 Continue amlodipine . Continue monitoring blood pressure at home. Active or passive immunization 443144768 Z23 The patient is agreeable for flu shot today. The patient never got her second pneumonia shot so we will do a Prevnar 20 today. Chronic constipation 236 543223 K59.09 stable Bilateral stenosis of carotid arteries 835683583 I65.23 no sx Malignant neoplasm of breast 962283795 C50.919 follows with oncology [id number] Ben Yi MD [facility] ([facility]) [address] [place] [phone] 10/02/2024 11:06:46 10/02/2024 11:42:05 Foot pain 29033368 M79.672 Given the patient's concerns and the state of her foot, podiatry referral would be warranted. Patient was agreeable with this plan. Hammer toe 250380759 M20 .42 [id number] Ben Yi MD [facility] ([facility]) [address] [place] [id number] 01/01/2025 10:44:30 01/01/2025 11:21:10 Essential hypertension 67860152 I10 Given the elevations in blood pressure I do recommend that we restart blood pressure medication s. With amlodipine to 2.5 mg that she was tolerating this medication previously . Degenerati on of lumbar intervertebral disc 04693638 M51.369 Patient denies any significan t back pain or pain concerns today. Hyperlipidemia 21880920 E78.5 Bilateral stenosis of carotid arteries 515853195 I65.23 no sx Chronic bronchiolitis 73 0283125 J44.9 Chronic constipation 236 447453 K59.09 stable Gastroesop hageal reflux disease 692529817 K21.9 History of fall 63064287 9 Z91.81 Frail elderly 523472092 R54 Need for [facility] care assistance [id number] Z74.1 [id number] MANN JOSE [facility] ([facility]) [address] [place] [phone] 06/11/2025 12:03:49 06/11/2025 12:38:15 Post-traumatic wound infection 778793234 T14.8XXA L08.9 62763722 Discussed to wash with soap and water daily. Apply mupirocin 3 times a day and apply a gauze pad for next 4 days. If you develop increased redness or concerned for worsening infection then return for re-evaluat ion [id number] Ben Yi MD [facility] ([facility]) [address] [place] [address] 07/03/2025 15:51:49 07/03/2025 17:19:17 Essential hypertension [id number] I10 Monitor blood pressure at home. Congestive heart failure [id number] I50.20 [id number] Son had questions about her blood pressure medication s including carvedilol and spironolac tone. The reasons for these medication s was discussed with the son. Frail elderly [id number] R54 Did not would benefit from continued physical therapy. Will put a referral to home health to help with this. Acute urin michelle tract infection [id number] N39.0 [id number] The patient is recovering well from her infection. The patient did have some delirium in her hospital stay. 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 Adjust [...] 01/01/2025 1 [employer] [id number] Jenna Nye [id number] Jenna Nye 07/10/2025 1 [employer] (MEDIC[place]PLAC[place]/A DVANTAGE - PPO) [id number] Jenna Nye [id number] 44 Jenna Nye Notes Date Note Type [...] medication without any issues. Ben Yi MD [address] [place] [address], [phone], [facility] 06/26/2024 15:32:14 4 text/html This is an 79-year-old female comes in today with left foot pain. The patient has a callus on the bottom of her left foot that has been hurting and bothering her. Also has calluses on the tips of her toes of the same foot. Ben Yi MD [address] [place] [address], [phone], [facility] 10/03/2024 13:29:17 5 text/html [...] denies any concerns today. Ben Yi MD [address] [place] [address], [phone], [facility] [place]. 01/01/2025 12:21:23 5 text/html LacerationReported by PatientROS as noted in the HPI walk in patientpatient is here today for a skin tear on her right arm from hitting a wall in her home, patient did this last week and said that the tear is very painful. MANN JOSE [address] [place] [address], [phone], [facility] [place]. 06/11/2025 12:24:21 5 text/html [...] her at this time. Ben Yi MD [address] [place] [address], [phone], [facility], [facility]. 07/05/2025 15:32:15 OBGyn Episode No OBEpisode recorded.
== END 2025-10-15 17:25 | disposition home or self-care (01) ==
PROVIDERS: Emergency Provider Physician Assistant; PCP Family Medicine
DX: B34.9 Viral infection, unspecified (principal); Z11.52 Encounter for screening for COVID-19; Z79.82 Long term (current) use of aspirin; E78.2 Mixed hyperlipidemia; Z85.3 Personal history of malignant neoplasm of breast
CPT/HCPCS: 36415; 80053; 81001; 85025; 87637; 99283